=== PATIENT | female | born 1965 | race Two or more races ===

== ENCOUNTER 2020-01-23 02:05 | Inpatient (IN) | payer MEDICAID, SELFPAY ==
[2020-01-23] VITALS (8 sets, daily range): BP systolic 108–153; BP diastolic 55–91; PULSE 69–86; RESP 16–19; TEMP 35.7–36.9; O2SAT 91–98; BMI 40.8
--- NOTE | 2020-01-23 02:37 | ED_ITS ---
HPI - Skin/Abscess/Foreign Bdy General Chief complaint: Skin/Abscess/Foreign Body Stated complaint: RED INFLAMMED SKIN Time Seen by Provider: 01/23/20 02:26 Source: patient Mode of arrival: ambulatory Limitations: no limitations History of Present Illness HPI narrative: patient comes to the hospital complaining of left lower leg cellulitis and a new bruising ulcer. Patient states 4 days ago she was in [facility] [place], states she thinks something bit her, started scratching in her left lower extremity. Since then, her leg has gotten red, warm to touch, very tender. Patient developed a blister today with dark tissue around it, use hot compresses, and the blister popped. Patient states the redness has been sprea ding throughout the day. Patient denies fever or chills. Patient states she is not diabetic MD complaint: abscess/boil and other ( cellulitis) Onset (ago): day(s) Location: LLE Severity: moderate Related Data Home Medications Medication Instructions Recorded Confirmed amlodipine 10 mg PO DAILY 01/23/20 01/23/20 aspirin 81 mg PO DAILY 01/23/20 01/23/20 citalopram [Celexa] 20 mg PO DAILY 01/23/20 01/23/20 clonazepam 0.5 mg PO BEDTIME 01/23/20 01/23/20 diclofenac sodium 75 mg PO BID 01/23/20 01/23/20 duloxetine 60 mg PO DAILY 01/23/20 01/23/20 gabapentin 400 mg PO DAILY 01/23/20 01/23/20 losartan-hydrochlorothiazide 1 tab PO DAILY 01/23/20 01/23/20 tramadol 50 mg PO DAILY 01/23/20 01/23/20 Allergies Allergy/AdvReac Type Severity Reaction Status Date / Time No Known Allergies Allergy Unverified 12/26/19 19:44 [No Known Allergies*] Review of Systems Review of Systems: Constitutional : No Weight loss, No Fever, No Chills, No Night Sweats, No Fatigue, No Malaise ENT/Mouth : No Hearing loss, No Ear Pain, No Nasal Congestion, No Sinus Pain, No Hoarseness, No sore throat, No Rhinorrhea, No Swallowing Difficulty Eyes: No Eye Pain, No Swelling, No Redness, No Foreign Body, No Discharge, No Vision Changes Cardiovascular : No Chest Pain, No SOB, No Dyspnea on Exertion, No Orthopnea, No Edema, No Palpitations Respiratory : No Cough, No Sputum, No Wheezing, No Smoke Exposure, No Dyspnea Gastrointestinal : No Nausea, No Vomiting, No Diarrhea, No Constipation, No abdominal Pain, No Hematochezia, No Melena Genitourinary : no irregular bleeding, No Dysuria, No Urinary Frequency, No Hematuria, No Urinary Incontinence, No Urgency, No Flank Pain, No Urinary Flow Changes, No Hesitancy Musculoskeletal : No joint pain, No Myalgias, No Joint Swelling Skin : skin lesion in left lower extremity Neuro : No Weakness, No Numbness, No Paresthesias, No Loss of Consciousness, No Dizziness, No Headache Psych : No Anxiety/Panic, No Depression, No SI/HI/AH/VH, No Social Issues, Heme/Lymph: No Bruising, No Bleeding,No Lymphadenopathy Endocrine : No Polyuria, No Polydipsia, No Temperature Intolerance PMFSH Past Medical History Medical History (Updated 01/23/20 @ 05:50 by Ariella Garcia MD) Arthritis Fibromyalgia Hypertension Osteoarthritis Social History Social History Advance Directives: No Advance Directives Information Provided: No Physical Exam Vital Signs: Vital Signs: Vital Signs Temp Pulse Resp BP Pulse Ox 01/23/20 02:13 97.5 F 86 16 153/91 H 98 Body Mass Index 40.8 Appearance: Alert. Oriented X3. No acute distress. Eyes: Pupils equal, round and reactive to light. ENT: Pharynx normal. Neck: Normal inspection. Neck supple. No lymph nodes noted. No crepitus CVS: Normal heart rate and rhythm. Pulses normal. Normal S1 and S2 Respiratory: No respiratory distress. Breath sounds normal. No Wheezing. No rales Abdomen: Soft and nontender. No rigidity. No distention. good BS x4 Skin: patient's left lower extremity is swollen more noticeable than the right side, there is a 10 cm x 10 cm erythematous patch cellulitis, in the middle there is a opening ulcer with surrounding bluish to black tissue Extremities: patient's left lower extremity is 25 % bigger than the right side, no calf pain, no suspicion of DVT. Neuro: Oriented X 3. No motor deficit. No sensory deficit. Moving all extermities. No slurred speech. Course Course Course Narrative: I discussed with the patient that she could potentially be discharged home on 2 antibiotics, however patient requested to be admitted, patient states that she will be unable to be compliant with her medication due to her current living situation, patient is moving and is taking care of 3 grandchildren, patient states that she does not think that she could be compliant with her antibiotics sepsis is not suspected. Given the appearance of her leg, patient will benefit from IV antibiotics. MDM - Skin/Abscess/Foreign Bdy Lab Data Result diagrams: 01/23/20 02:40 01/23/20 02:40 Labs: Lab Results 01/23/20 01/23/20 01/23/20 Range/Units 02:40 02:40 02:40 WBC 13.6 H (4.8-10.8) X10*3/uL RBC 4.23 (4.20-5.50) X10*6/uL Hgb 12.4 (12.0-16.0) g/dl Hct 38.4 (37-47) % MCV 90.8 (80-98) fL MCH 29.3 (27.0-33.0) pg MCHC 32.3 (31.0-35.0) g/dl RDW 15.1 (11.0-16.0) % Plt Count 287 (160-400) X10*3/uL MPV 10.6 (9.4-12.3) fL Immature Gran % (Auto) 0.6 H (0.0-0.4) % Neut % (Auto) 65.6 (45-73) % Lymph % (Auto) 21.4 (20-40) % [place] % (Auto) 10.4 (2-11) % Eos % (Auto) 1.9 (0-4) % Baso % (Auto) 0.1 (0-2) % Lymph # (Auto) 2.9 (1.2-4.9) X10*3/uL [place] # (Auto) 1.4 H (0.1-1.2) X10*3/uL Eos # (Auto) 0.3 (0.0-0.4) X10*3/uL Baso # (Auto) 0.0 (0.0-0.2) X10*3/uL Abs Immat Gran (auto) 0.08 H (0.00-0.03) X10*3/uL Absolute Neuts (auto) 8.9 H (2.0-8.3) X10*3/uL Absolute Nucleated RBC 0.000 (0.0-0.012) X10*3/uL Nucleated RBC % (auto) 0.0 (0.0-0.2) /100WBC Sodium 137 (135-145) mmol/L Potassium 3.6 (3.3-5.1) mmol/l Chloride 104 (96-108) mmol/L Carbon Dioxide 25 (22-29) mmol/L Anion Gap 12 (12-20) BUN 18 H (9-16) mg/dL Creatinine 0.71 (0.5-1.4) mg/dL Estim Creat Clear Calc 107.4 Estimated GFR > 60 Random Glucose 143 H (60-115) mg/dL Lactic Acid 1.0 (0.5-2.0) mmol/L Calcium 8.5 (8.4-10.2) mg/dL Total Bilirubin 0.6 (0.0-1.0) mg/dL Direct Bilirubin 0.2 (0.0-0.5) mg/dL AST 12 (5-31) U/L ALT 19 (0-31) U/L Alkaline Phosphatase 114 (39-117) U/L Total Protein 6.3 L (6.5-8.0) g/dL Albumin 3.7 (3.5-5.0) g/dL Discharge Plan Discharge Clinical Impression: Cellulitis Patient Disposition: Admitted As Inpatient
--- NOTE | 2020-01-23 02:42 | PC.NURSE ---
at bedside. IV established, all labs and BCX obtained and sent. Pt aware of plan to CT extremity and IV ABX. Continue to monitor.
[2020-01-23 02:47] LABS: MANUAL DIFF FLAG NO
[2020-01-23 02:49] LABS: Basophils Percent Auto 0.1 % (0-2); Eosinophils Absolute Auto 0.3 X10*3/uL (0.0-0.4); Eosinophils Percent Auto 1.9 % (0-4); Hematocrit 38.4 % (37-47); Hemoglobin 12.4 g/dl (12.0-16.0); Imm Gran Abs Auto 0.08 X10*3/uL (0.00-0.03); Imm Gran Pct Auto 0.6 % (0.0-0.4); Lymphocytes Absolute Auto 2.9 X10*3/uL (1.2-4.9); Lymphocytes Percent Auto 21.4 % (20-40); Mean Corpuscular HGB Conc 32.3 g/dl (31.0-35.0); Mean Corpuscular Hemoglobin 29.3 pg (27.0-33.0); Mean Corpuscular Volume 90.8 fL (80-98); Mean Platelet Volume 10.6 fL (9.4-12.3); Monocytes Absolute Auto 1.4 X10*3/uL (0.1-1.2); Monocytes Percent Auto 10.4 % (2-11); Neutrophils Absolute Auto 8.9 X10*3/uL (2.0-8.3); Neutrophils Percent Auto 65.6 % (45-73); Platelet Count 287 X10*3/uL (160-400); Red Blood Count 4.23 X10*6/uL (4.20-5.50); Red Cell Distribution Width 15.1 % (11.0-16.0); White Blood Count 13.6 X10*3/uL (4.8-10.8)
[2020-01-23] MEDS: 0.9 % Sodium Chloride 1,000 ML 999 ML IVCONT (02:55)
[2020-01-23] MEDS: Piperacillin Sodium/Tazobactam 3.375 GM in 0.9 % Sodium Chloride 50 ML IV (02:55)
--- NOTE | 2020-01-23 02:56 | PC.NURSE ---
Zosyn and IVF hung per EMAR.
[2020-01-23 03:13] LABS: Alanine Aminotransferase 19 U/L (0-31); Albumin Level 3.7 g/dL (3.5-5.0); Alkaline Phosphatase 114 U/L (39-117); Anion Gap 12 (12-20); Aspartate Amino Transferase 12 U/L (5-31); Bilirubin Direct 0.2 mg/dL (0.0-0.5); Bilirubin Total 0.6 mg/dL (0.0-1.0); Blood Urea Nitrogen 18 mg/dL (9-16); Calcium 8.5 mg/dL (8.4-10.2); Carbon Dioxide 25 mmol/L (22-29); Chloride 104 mmol/L (96-108); Creatinine Clr Calc Pharmacy 107.4; Estimated Glomerular Filt Rate > 60; Glucose Random 143 mg/dL (60-115); Potassium 3.6 mmol/l (3.3-5.1); Sodium 137 mmol/L (135-145); Total Protein 6.3 g/dL (6.5-8.0)
--- NOTE | 2020-01-23 03:35 | PC.NURSE ---
Flor aguilera per EMAR.
--- NOTE | 2020-01-23 04:03 | PC.NURSE ---
Pt requesting to use the bathroom, ambulating with a scanlon/steady gait.
--- NOTE | 2020-01-23 04:50 | PC.NURSE ---
Hospitalist at bedside. Med rec complete per list provided by pt.
--- NOTE | 2020-01-23 05:42 | PM.IMHP ---
History of Present Illness Date of Service: 01/23/20 Chief Complaint: skin abscess, redness patient is [place]-speaking and history is obtained with the help of marketing technology coordinator this is a 54-year-old female with past medical history of hypertension, osteoarthritis, fibromyalgia, and migraine who presents to the hospital with complaints of left lower extremity skin abscess. Patient reports that on she was at [facility] when she felt something itching. She started itching her leg and then founded to be red with subsequent worsening and started swelling.. The redness progressively worsened over the next few days, and she also developed a bump. She was hot water and Neosporin and today in the shower the phone pots and started draining bloody drainage. She is not aware she was bitten by any insect. She has not had any fever or chills. Otherwise no headache, change in vision, abdominal pain nausea or vomiting, no diarrhea or constipation. No chest pain or shortness of breath. On arrival to the ED hemodynamically stable lab significant for WBC count 13.6, otherwise unremarkable. Given the severity of her cellulitis and skin abscess patient will be admitted for IV antibiotics past medical history: Fibromyalgia, osteoarthritis, hypertension, vertigo and migraine past surgical history: Tubal ligation, cholecystectomy family history: Significant for diabetes social history: She comes from, denies tobacco alcohol or illicit drug Review of Systems Review of Systems: Yes all other systems are reviewed and are negative [facility] Medical History Arthritis Fibromyalgia Hypertension Osteoarthritis Social History Advance Directives: No Advance Directives Information Provided: No Meds Allergies Allergy/AdvReac Type Severity Reaction Status Date / Time No Known Allergies Allergy Unverified 12/26/19 19:44 [No Known Allergies*] Home Medications Medication Instructions Recorded Confirmed Type amlodipine 10 mg PO DAILY 01/23/20 01/23/20 History aspirin 81 mg PO DAILY 01/23/20 01/23/20 History citalopram [Celexa] 20 mg PO DAILY 01/23/20 01/23/20 History clonazepam 0.5 mg PO BEDTIME 01/23/20 01/23/20 History diclofenac sodium 75 mg PO BID 01/23/20 01/23/20 History duloxetine 60 mg PO DAILY 01/23/20 01/23/20 History gabapentin 400 mg PO DAILY 01/23/20 01/23/20 History losartan-hydrochlorothiazide 1 tab PO DAILY 01/23/20 01/23/20 History tramadol 50 mg PO DAILY 01/23/20 01/23/20 History Physical Exam Vital Signs and Narrative: Vital Signs: Last Vital Signs Temp 97.5 F 01/23/20 02:13 Pulse 86 01/23/20 02:13 Resp 16 01/23/20 02:13 BP 153/91 H 01/23/20 02:13 Pulse Ox 98 01/23/20 02:13 Body Mass Index 40.8 Const: General: cooperative and no acute distress Orientation/consciousness: patient oriented x3 Eyes: General: appearance normal, both eyes and all related structures Pupils: Equal, round and reactive pupils present Resp: Effort & Inspection: normal respiratory effort and able to speak in complete sentences Auscultation: clear to auscultation bilaterally Cardio: Rate: regular rate Rhythm: regular rhythm GI: Palpation (GI): Soft to palpation Auscultation: normal bowel sounds Skin: General skin exam: no rashes or lesions noted Neuro: General: patient oriented x3 Cranial nerves: Yes Equal, round and reactive pupils present Cognition (Neuro): normal cognition Extrem: Other: lateral left lower extremity circular area of erythema, warmth, and severe tenderness P there is also edema in that area. In the center of the circular erythema there is what appears to be a weeping abscess. Ankle/foot/toe images: 1. 2. Results Labs Labs: Laboratory Tests 01/23/20 01/23/20 01/23/20 02:40 02:40 02:40 WBC 13.6 H RBC 4.23 Hgb 12.4 Hct 38.4 MCV 90.8 MCH 29.3 MCHC 32.3 RDW 15.1 Plt Count 287 MPV 10.6 Immature Gran % (Auto) 0.6 H Neut % (Auto) 65.6 Lymph % (Auto) 21.4 [place] % (Auto) 10.4 Eos % (Auto) 1.9 Baso % (Auto) 0.1 Lymph # (Auto) 2.9 [place] # (Auto) 1.4 H Eos # (Auto) 0.3 Baso # (Auto) 0.0 Abs Immat Gran (auto) 0.08 H Absolute Neuts (auto) 8.9 H Absolute Nucleated RBC 0.000 Nucleated RBC % (auto) 0.0 Sodium 137 Potassium 3.6 Chloride 104 Carbon Dioxide 25 Anion Gap 12 BUN 18 H Creatinine 0.71 Estim Creat Clear Calc 107.4 Estimated GFR > 60 Random Glucose 143 H Lactic Acid 1.0 Calcium 8.5 Total Bilirubin 0.6 Direct Bilirubin 0.2 AST 12 ALT 19 Alkaline Phosphatase 114 Total Protein 6.3 L Albumin 3.7 Assessment and Plan (1) Skin abscess: Status: Acute (2) Hypertension: Status: Acute (3) Arthritis: Status: Acute (4) Cellulitis: Status: Acute This is a 54-year-old female who presents to the hospital with leg cellulitis and abscess pain # left lower extremity cellulitis - afebrile but has leukocytosis - a large draining abscess in the center of the years - possibly secondary to an insect bite plan: - Given draining was started on vancomycin, received zosyn in ED - blood cultures - wound care # Skin abscess - draining with bloody drainage - abx as above - wound care - if not healing conside Gen surg for I&D although does not appear to be deep # HTN - stable - Non-formulary home meds, switched to formulary # Fibromyalgia - continue gabapentin DVT ppx: Lovenox DOS: 01/23/2020
--- NOTE | 2020-01-23 05:54 | PC.NURSE ---
Vanco ordered for 0300 not given. Vanco 1500 mg ordered by ER given @ 8229.
--- NOTE | 2020-01-23 06:11 | PC.NURSE ---
This RN calling [facility] to give report, [facility] unable to take report at this time.
--- NOTE | 2020-01-23 06:40 | PC.NURSE ---
This RN again calling [facility], per I[facility], pt is now going to M/S floor.
[2020-01-23] MEDS: Losartan Potassium 50 MG TABLET 100 MG PO (10:02)
[2020-01-23] MEDS: Gabapentin 400 MG CAPSULE PO (10:02)
[2020-01-23] MEDS: amLODIPine Besylate 10 MG TABLET PO (10:02)
[2020-01-23] MEDS: Acetaminophen 325 MG TABLET 650 MG PO ×2 (10:02→20:05)
[2020-01-23] MEDS: hydroCHLOROthiazide 25 MG TABLET PO (10:02)
[2020-01-23] MEDS: DULoxetine HCl 60 MG CAPSULE.DR PO (10:02)
[2020-01-23] MEDS: traMADoL HCL 50 MG TABLET PO (10:02)
[2020-01-23] MEDS: Enoxaparin Sodium 40 MG/0.4 ML SYRINGE SUBCUT (10:03)
[2020-01-23] MEDS: 0.9 % Sodium Chloride Flush 3 ML SYRINGE IVFLUSH ×2 (10:05→20:11)
[2020-01-23] MEDS: Diclofenac Sodium Delayed Rel 75 MG TABLET.DR PO ×2 (10:46→20:05)
[2020-01-23] MEDS: clonazePAM 0.5 MG TABLET PO (20:05)
[2020-01-23] MEDS: Morphine Sulfate 4 MG/ML CARTRIDGE IVPUSH (21:45)
[2020-01-24] VITALS (8 sets, daily range): BP systolic 104–130; BP diastolic 58–76; PULSE 67–88; RESP 18–19; TEMP 35.9–37; O2SAT 93–98; BMI 45.6
[2020-01-24 05:33] LABS: MANUAL DIFF FLAG NO
[2020-01-24 05:39] LABS: Basophils Percent Auto 0.3 % (0-2); Eosinophils Absolute Auto 0.3 X10*3/uL (0.0-0.4); Eosinophils Percent Auto 3.5 % (0-4); Hematocrit 35.6 % (37-47); Hemoglobin 11.2 g/dl (12.0-16.0); Imm Gran Abs Auto 0.04 X10*3/uL (0.00-0.03); Imm Gran Pct Auto 0.5 % (0.0-0.4); Lymphocytes Absolute Auto 1.7 X10*3/uL (1.2-4.9); Lymphocytes Percent Auto 21.4 % (20-40); Mean Corpuscular HGB Conc 31.5 g/dl (31.0-35.0); Mean Corpuscular Hemoglobin 29.2 pg (27.0-33.0); Mean Corpuscular Volume 92.7 fL (80-98); Mean Platelet Volume 10.7 fL (9.4-12.3); Neutrophils Absolute Auto 4.9 X10*3/uL (2.0-8.3); Neutrophils Percent Auto 62.3 % (45-73); Platelet Count 229 X10*3/uL (160-400); Red Blood Count 3.84 X10*6/uL (4.20-5.50); Red Cell Distribution Width 14.9 % (11.0-16.0); White Blood Count 7.9 X10*3/uL (4.8-10.8)
[2020-01-24 06:05] LABS: Anion Gap 9 (12-20); Blood Urea Nitrogen 15 mg/dL (9-16); Calcium 8.1 mg/dL (8.4-10.2); Carbon Dioxide 27 mmol/L (22-29); Chloride 106 mmol/L (96-108); Creatinine Clr Calc Pharmacy 119.5; Estimated Glomerular Filt Rate > 60; Glucose Random 114 mg/dL (60-115); Potassium 4.1 mmol/l (3.3-5.1); Sodium 138 mmol/L (135-145)
[2020-01-24] MEDS: Enoxaparin Sodium 40 MG/0.4 ML SYRINGE SUBCUT (09:49)
[2020-01-24] MEDS: amLODIPine Besylate 10 MG TABLET PO (09:50)
[2020-01-24] MEDS: Gabapentin 400 MG CAPSULE PO (09:50)
[2020-01-24] MEDS: hydroCHLOROthiazide 25 MG TABLET PO (09:50)
[2020-01-24] MEDS: DULoxetine HCl 60 MG CAPSULE.DR PO (09:50)
[2020-01-24] MEDS: 0.9 % Sodium Chloride Flush 3 ML SYRINGE IVFLUSH ×3 (09:50→23:33)
[2020-01-24] MEDS: Losartan Potassium 50 MG TABLET 100 MG PO (09:51)
[2020-01-24] MEDS: Diclofenac Sodium Delayed Rel 75 MG TABLET.DR PO ×2 (09:51→20:52)
[2020-01-24] MEDS: traMADoL HCL 50 MG TABLET PO (09:51)
--- NOTE | 2020-01-24 11:33 | P.PNIM_ITS ---
Subjective Subjective Date of Service: 01/24/20 Interval History: Seen in f/u for skin abscess and cellulitis. pain in the area, unchanged Review of Systems Pain the leg No fever Physical Exam Vital Signs: Vital Signs: Vital Signs Temp Pulse Resp BP Pulse Ox 01/24/20 09:51 73 110/74 01/24/20 09:50 73 110/74 01/24/20 07:16 96.7 F L 73 18 110/74 98 01/24/20 03:54 98.6 F 67 18 128/76 97 01/23/20 23:52 97.0 F 75 18 110/69 91 L 01/23/20 20:00 96.3 F L 76 112/70 94 01/23/20 15:57 97.9 F 76 19 108/69 97 01/23/20 11:34 97.4 F 70 18 138/74 98 Body Mass Index 45.6 Constitutional Awake and Alert, No apparent distress Neck Supple, No lymphadenopathy Cardiovascular RRR, No M/R/G, S1 S2, No S3 S4, No pedal edema Respiratory Lungs clear, No respiratory distress Gastrointestinal Non tender, Non-distended Skin large area of left leg with abscess necrotic surface draining and surrounding erythema Neurological Alert & oriented x3 Psychological Appropriate affect Objective Data Current Medications Generic Name Dose Route Start Last Admin Trade Name Freq PRN Reason Stop Dose Admin Acetaminophen 650 mg 01/23/20 09:36 01/23/20 20:05 Acetaminophen 325 Mg Tablet PO 650 mg Q6H PRN Administration Pain, Mild (Pain Scale 1-3) Amlodipine Besylate 10 mg 01/23/20 09:36 01/24/20 09:50 Amlodipine Besylate 10 Mg Tablet PO 10 mg DAILY ALVARADO Administration Protocol Clonazepam 0.5 mg 01/23/20 21:00 01/23/20 20:05 Clonazepam 0.5 Mg Tablet PO 0.5 mg BEDTIME ALVARADO Administration Diclofenac Sodium 75 mg 01/23/20 09:36 01/24/20 09:51 Diclofenac Sodium Delayed Rel 75 Mg Tablet. PO 75 mg BID ALVARADO Administration Docusate Sodium 100 mg 01/23/20 09:36 Docusate Sodium 100 Mg Capsule PO DAILY PRN Constipation Duloxetine HCl 60 mg 01/23/20 09:36 01/24/20 09:50 Duloxetine Hcl 60 Mg Capsule. PO 60 mg DAILY ALVARADO Administration Enoxaparin Sodium 40 mg 01/23/20 10:00 01/24/20 09:49 Enoxaparin Sodium 40 Mg/0.4 Ml Syringe SUBCUT 40 mg Q24H ALVARADO Administration Gabapentin 400 mg 01/23/20 09:36 01/24/20 09:50 Gabapentin 400 Mg Capsule PO 400 mg DAILY ALVARADO Administration Hydrochlorothiazide 25 mg 01/23/20 09:36 01/24/20 09:50 Hydrochlorothiazide 25 Mg Tablet PO 25 mg DAILY [facility] Administration Protocol Vancomycin HCl 2,000 mg/ 540 mls @ 270 mls/hr 01/23/20 16:00 01/24/20 06:39 Sodium Chloride IV Infused Q12H ALVARADO Infusion Losartan Potassium 100 mg 01/23/20 09:00 01/24/20 09:51 Losartan Potassium 50 Mg Tablet PO 100 mg DAILY [facility] Administration Protocol Morphine Sulfate 4 mg 01/23/20 09:36 01/23/20 21:45 Morphine Sulfate 4 Mg/Ml Cartridge IVPUSH 4 mg Q6H PRN Administration Pain, Severe (Pain Scale 7-10) Ondansetron HCl 4 mg 01/23/20 09:36 Ondansetron Hcl 4 Mg/2 Ml Vial IVPUSH Q8H PRN Nausea and Vomiting Sodium Chloride 3 ml 01/23/20 09:36 01/24/20 09:50 0.9 % Sodium Chloride Flush 3 Ml Syringe IVFLUSH 3 ml QSHIFT [facility] Administration Tramadol HCl 50 mg 01/23/20 09:36 01/24/20 09:51 Tramadol Hcl 50 Mg Tablet PO 50 mg DAILY [facility] Administration Labs CBC & Chem 7: 01/24/20 05:14 01/24/20 05:14 Microbiology Microbiology Results: Microbiology 01/23/20 02:40 Blood - Venous Blood Culture - Preliminary No growth after 24 hours. 01/23/20 02:40 Blood - Venous Blood Culture - Preliminary No growth after 24 hours. Assessment and Plan (1) Skin abscess: Status: Acute (2) Hypertension: Status: Acute (3) Arthritis: Status: Acute (4) Cellulitis: Status: Acute Assessment and Plan: 54-year-old female who presents to the hospital with leg cellulitis and abscess pain # left lower extremity skin abscess that looks like spider bite with cellulitis -contineu Abx -Surgery consult for I and D # HTN--controlled. # Fibromyalgia - continue gabapentin
--- NOTE | 2020-01-24 11:43 | MHC.CM.PN ---
[facility] CARDIOVASCULAR completed with pt with the assistance of a gym manager. Pt reports she lives with her cousin and is independent with care and mobility. Pt denies the use of any DME or services. Pt confirms PCP listed, Chelsi Go, as correct. Pt does not have a HCP but agrees to complete one today naming Malgorzata Oliveira ([phone]) as primary and Kiana Solis ([phone]) as alternate agent. Current discharge plan is home with no services pt will self arrange transport
[2020-01-24] MEDS: Morphine Sulfate 4 MG/ML CARTRIDGE IVPUSH ×2 (14:22→23:38)
[2020-01-24] MEDS: Lidocaine HCl 1 % 20 ML VIAL SUBCUT (14:26)
--- NOTE | 2020-01-24 14:49 | PM.CNGS ---
History of Present Illness Consult details Consult date: 01/24/20 Narrative: 54-year-old female referred for left lower leg abscess. She describes an area of itching on the left lower leg about a week ago. She says she started to scratch this and she had noted I read area with a small bump. This became progressively worse with increase in size and redness. It became more tender and painful yesterday with some drainage and bleeding so she came to the emergency room last night. She was noted to have an area of cellulitis with induration and some draining abscess so she was admitted last night. Her white count was 13. She denies any recall of trauma or insect bite to the area. She denies being a diabetic. Review of Systems Constitutional: Constitutional: Denies chills and Denies fever(s) Cardiovascular: Cardiovascular: Denies chest pain, Denies dyspnea and Denies dyspnea on exertion Respiratory: Respiratory: Denies cough, Denies dyspnea and Denies dyspnea on exertion Gastrointestinal: Gastrointestinal: Denies hematochezia and Denies change in bowel habits Genitourinary: Genitourinary: Reports hematuria Musculoskeletal: Musculoskeletal: Denies back pain and Denies limited range of motion Neurologic: Denies focal weakness and Denies convulsions Psychiatric: Psychiatric: Denies depression and Denies mood swings PMFSH Past Medical History Medical History Arthritis Fibromyalgia Hypertension Osteoarthritis Family History Family history: reviewed and not pertinent Social History Social History Household Members: Family Housing: Apartment Do you presently have visiting nurse or other home services: No Smoking Status: Never smoker Smoked in Last 30 Days: No Patient Interested in Nicotine Replacement: No Patient Given Instructions on How to Stop Smoking: No Second Hand Smoke Exposure: No Use of substances other than those prescribed or required for medical reasons: No Currently Displaying Signs/Symptoms of Drug Intoxication Withdrawal: No Advance Directives: No Advance Directives Information Provided: No Do you have thoughts of harming others: None Do you have a plan to hurt others: No Plan Recently lost weight without trying: No service: No Current occupational status: unemployed Meds Allergies Allergy/AdvReac Type Severity Reaction Status Date / Time No Known Allergies Allergy Unverified 12/26/19 19:44 [No Known Allergies*] Home Medications Medication Instructions Recorded Confirmed Type amlodipine 10 mg PO DAILY 01/23/20 01/23/20 History aspirin 81 mg PO DAILY 01/23/20 01/23/20 History citalopram [Celexa] 20 mg PO DAILY 01/23/20 01/23/20 History clonazepam 0.5 mg PO BEDTIME 01/23/20 01/23/20 History diclofenac sodium 75 mg PO BID 01/23/20 01/23/20 History duloxetine 60 mg PO DAILY 01/23/20 01/23/20 History gabapentin 400 mg PO DAILY 01/23/20 01/23/20 History losartan-hydrochlorothiazide 1 tab PO DAILY 01/23/20 01/23/20 History tramadol 50 mg PO DAILY 01/23/20 01/23/20 History Physical Exam Vital Signs: Vital Signs: Vital Signs Temp Pulse Resp BP Pulse Ox 01/24/20 11:36 96.8 F 77 18 130/69 97 01/24/20 09:51 73 110/74 01/24/20 09:50 73 110/74 01/24/20 07:16 96.7 F L 73 18 110/74 98 01/24/20 03:54 98.6 F 67 18 128/76 97 01/23/20 23:52 97.0 F 75 18 110/69 91 L 01/23/20 20:00 96.3 F L 76 112/70 94 01/23/20 15:57 97.9 F 76 19 108/69 97 Body Mass Index 45.6 Const: General: comfortable and no acute distress Orientation/consciousness: patient oriented x3 Neck: Neck: Yes no lymphadenopathy Resp: Auscultation: clear to auscultation bilaterally Cardio: Rhythm: regular rhythm GI: Palpation (GI): Soft to palpation, nontender and no guarding Neuro: General: patient oriented x3 Extrem: Other: Left lower leg laterally with note of an area of induration about 5 cm in size, central fluctuance with drainage, surrounded by cellulitic changes on the skin Results Labs Result diagrams: 01/24/20 05:14 01/24/20 05:14 Labs: Abnormal lab results 01/24/20 01/24/20 Range/Units 05:14 05:14 RBC 3.84 L (4.20-5.50) X10*6/uL Hgb 11.2 L (12.0-16.0) g/dl Hct 35.6 L (37-47) % Immature Gran % (Auto) 0.5 H (0.0-0.4) % [place] % (Auto) 12.0 H (2-11) % Abs Immat Gran (auto) 0.04 H (0.00-0.03) X10*3/uL Anion Gap 9 L (12-20) Calcium 8.1 L (8.4-10.2) mg/dL Short CBC 01/24/20 Range/Units 05:14 WBC 7.9 (4.8-10.8) X10*3/uL Hgb 11.2 L (12.0-16.0) g/dl Hct 35.6 L (37-47) % Plt Count 229 (160-400) X10*3/uL BMP 01/24/20 05:14 Sodium 138 Potassium 4.1 Chloride 106 Carbon Dioxide 27 BUN 15 Creatinine 0.68 Calcium 8.1 L All other labs normal. Assessment and Plan (1) Subcutaneous abscess: Status: Acute Examination shows a wide area of cellulitis on the left lower leg along with an induration with central fluctuance as described above consistent with an abscess in the subcutaneous layer. I therefore explained to her that it would be best to proceed with I and D under local anesthesia. I explained to her the technique of this procedure. I reviewed with her the risks including but not limited bleeding and infections. She understood and had given verbal consent. The I&D was done at bedside as described on the procedure note. She tolerated this well. Applied a light packing into the area. Cultures were taken as well. She will need daily dressing changes with dry gauze along with a Kerlix wrapped around the leg. The culture results should be followed. She already is on broad-spectrum antibiotics at this time. This maybe customized depending on the culture results. Procedures Abscess I/D Side (if applicable): left Anesthetic used: lidocaine 1% Technique: incised with #11 blade Packing used?: iodoform Additional comments: The area was prepped and draped. Lidocaine 1% was used generously to infiltrate the subcutaneous layer. I then used a blade 11 to incise the skin overlying the fluctuant area and this was advanced into the abscess cavity. Large amounts of pus was drained. I bluntly debrided the abscess cavities in Q-tips. I then applied a light packing to the area. Dry dressings and a Kerlix roll was then applied to the leg. Cultures of the abscess was done as well. She tolerated The procedure well. There were no complications noted.
[2020-01-24 16:37] LABS: Vancomycin Trough 19.3 mcg/mL (10.0-20.0)
--- NOTE | 2020-01-24 18:20 | PC.NURSE ---
P-vanco trough 19.3 I-Dr. Thompson notified E-awaiting new orders
--- NOTE | 2020-01-24 19:10 | PC.NURSE ---
Rn was not able toscan Vancomycin because scheduled time was changed,pharmacy was notified
[2020-01-24] MEDS: Acetaminophen 325 MG TABLET 650 MG PO (20:52)
[2020-01-24] MEDS: clonazePAM 0.5 MG TABLET PO (20:53)
[2020-01-25] VITALS (9 sets, daily range): BP systolic 104–133; BP diastolic 56–69; PULSE 69–83; RESP 16–19; TEMP 36.1–36.6; O2SAT 95–97; BMI 45.9
[2020-01-25] MEDS: DULoxetine HCl 60 MG CAPSULE.DR PO (09:52)
[2020-01-25] MEDS: Diclofenac Sodium Delayed Rel 75 MG TABLET.DR PO ×2 (09:52→20:44)
[2020-01-25] MEDS: Losartan Potassium 50 MG TABLET 100 MG PO (09:52)
[2020-01-25] MEDS: Enoxaparin Sodium 40 MG/0.4 ML SYRINGE SUBCUT (09:53)
[2020-01-25] MEDS: traMADoL HCL 50 MG TABLET PO (09:53)
[2020-01-25] MEDS: hydroCHLOROthiazide 25 MG TABLET PO (09:53)
[2020-01-25] MEDS: amLODIPine Besylate 10 MG TABLET PO (09:53)
[2020-01-25] MEDS: Gabapentin 400 MG CAPSULE PO (09:53)
--- NOTE | 2020-01-25 11:11 | P.PNIM_ITS ---
Subjective Subjective Interval History: Seen in f/u for skin abscess and cellulitis. pain in the area, unchanged Physical Exam Vital Signs: Vital Signs: Vital Signs Temp Pulse Resp BP Pulse Ox 01/25/20 09:53 76 133/66 01/25/20 09:52 76 133/66 01/25/20 07:45 96.9 F 72 18 108/60 97 01/25/20 03:51 97.8 F 79 19 104/69 97 01/24/20 23:42 97.1 F 72 19 104/64 97 01/24/20 19:24 97.0 F 88 18 111/59 L 95 01/24/20 15:39 97.2 F 82 18 118/58 L 93 01/24/20 11:36 96.8 F 77 18 130/69 97 Body Mass Index 45.6 Constitutional Awake and Alert, No apparent distress Neck Supple, No lymphadenopathy Cardiovascular RRR, No M/R/G, S1 S2, No S3 S4, No pedal edema Respiratory Lungs clear, No respiratory distress Gastrointestinal Non tender, Non-distended Skin large area of left leg with abscess necrotic surface draining and surrounding erythema--images below Neurological Alert & oriented x3 Psychological Appropriate affect 01/24/20 01/25/20 Objective Data Current Medications Generic Name Dose Route Start Last Admin Trade Name Freq PRN Reason Stop Dose Admin Acetaminophen 650 mg 01/23/20 09:36 01/24/20 20:52 Acetaminophen 325 Mg Tablet PO 650 mg Q6H PRN Administration Pain, Mild (Pain Scale 1-3) Amlodipine Besylate 10 mg 01/23/20 09:36 01/25/20 09:53 Amlodipine Besylate 10 Mg Tablet PO 10 mg DAILY ALVARADO Administration Protocol Clonazepam 0.5 mg 01/23/20 21:00 01/24/20 20:53 Clonazepam 0.5 Mg Tablet PO 0.5 mg BEDTIME ALVARADO Administration Diclofenac Sodium 75 mg 01/23/20 09:36 01/25/20 09:52 Diclofenac Sodium Delayed Rel 75 Mg Tablet. PO 75 mg BID ALVARADO Administration Docusate Sodium 100 mg 01/23/20 09:36 Docusate Sodium 100 Mg Capsule PO DAILY PRN Constipation Duloxetine HCl 60 mg 01/23/20 09:36 01/25/20 09:52 Duloxetine Hcl 60 Mg Capsule. PO 60 mg DAILY ALVARADO Administration Enoxaparin Sodium 40 mg 01/23/20 10:00 01/25/20 09:53 Enoxaparin Sodium 40 Mg/0.4 Ml Syringe SUBCUT 40 mg Q24H [facility] Administration Gabapentin 400 mg 01/23/20 09:36 01/25/20 09:53 Gabapentin 400 Mg Capsule PO 400 mg DAILY [facility] Administration Hydrochlorothiazide 25 mg 01/23/20 09:36 01/25/20 09:53 Hydrochlorothiazide 25 Mg Tablet PO 25 mg DAILY [facility] Administration Protocol Vancomycin HCl 1,500 mg/ 280 mls @ 186.667 mls/hr 01/24/20 19:00 01/25/20 08:22 Sodium Chloride IV Infused Q12H [facility] Infusion Losartan Potassium 100 mg 01/23/20 09:00 01/25/20 09:52 Losartan Potassium 50 Mg Tablet PO 100 mg DAILY [facility] Administration Protocol Morphine Sulfate 4 mg 01/23/20 09:36 01/24/20 23:38 Morphine Sulfate 4 Mg/Ml Cartridge IVPUSH 4 mg Q6H PRN Administration Pain, Severe (Pain Scale 7-10) Ondansetron HCl 4 mg 01/23/20 09:36 Ondansetron Hcl 4 Mg/2 Ml Vial IVPUSH Q8H PRN Nausea and Vomiting Sodium Chloride 3 ml 01/23/20 09:36 01/25/20 07:19 0.9 % Sodium Chloride Flush 3 Ml Syringe IVFLUSH Not Given QSHIFT [facility] Tramadol HCl 50 mg 01/23/20 09:36 01/25/20 09:53 Tramadol Hcl 50 Mg Tablet PO 50 mg DAILY [facility] Administration Labs CBC & Chem 7: 01/24/20 05:14 01/24/20 05:14 Microbiology Microbiology Results: Microbiology 01/24/20 14:42 Abscess Soft Tissue Gram Stain - Final 01/24/20 14:42 Abscess Soft Tissue Routine Culture - Preliminary Culture in progress. 01/23/20 02:40 Blood - Venous Blood Culture - Preliminary No growth after 48 hours. 01/23/20 02:40 Blood - Venous Blood Culture - Preliminary No growth after 48 hours. Assessment and Plan (1) Skin abscess: Status: Acute (2) Hypertension: Status: Acute (3) Arthritis: Status: Acute (4) Cellulitis: Status: Acute Assessment and Plan: 54-year-old female who presents to the hospital with leg cellulitis and abscess pain # left lower extremity skin abscess that looks like spider bite with cellulitis -contineu Vanco -ID consult -Surgery I and D'd yesterday # HTN--controlled. # Fibromyalgia - continue gabapentin
[2020-01-25] MEDS: Morphine Sulfate 4 MG/ML CARTRIDGE IVPUSH (19:37)
[2020-01-25] MEDS: clonazePAM 0.5 MG TABLET PO (20:44)
[2020-01-25] MEDS: 0.9 % Sodium Chloride Flush 3 ML SYRINGE IVFLUSH (22:18)
[2020-01-26 03:46] VITALS: BP 113/54; PULSE 61; RESP 16; TEMP 36.2; O2SAT 96
[2020-01-26 04:53] LABS: Vancomycin Trough 22.3 mcg/mL (10.0-20.0)
[2020-01-26 07:44] VITALS: BP 130/67; PULSE 75; RESP 19; TEMP 36.7; O2SAT 97
[2020-01-26] MEDS: DULoxetine HCl 60 MG CAPSULE.DR PO (08:14)
[2020-01-26 08:15] VITALS: BP 130/67; PULSE 75
[2020-01-26] MEDS: Gabapentin 400 MG CAPSULE PO (08:15)
[2020-01-26] MEDS: Losartan Potassium 50 MG TABLET 100 MG PO (08:15)
[2020-01-26] MEDS: amLODIPine Besylate 10 MG TABLET PO (08:15)
[2020-01-26] MEDS: Diclofenac Sodium Delayed Rel 75 MG TABLET.DR PO (08:15)
[2020-01-26] MEDS: hydroCHLOROthiazide 25 MG TABLET PO (08:16)
[2020-01-26] MEDS: traMADoL HCL 50 MG TABLET PO (08:16)
[2020-01-26] MEDS: Enoxaparin Sodium 40 MG/0.4 ML SYRINGE SUBCUT (08:16)
[2020-01-26] MEDS: 0.9 % Sodium Chloride Flush 3 ML SYRINGE IVFLUSH (08:17)
[2020-01-26 10:21] LABS: Anion Gap 10 (12-20); Blood Urea Nitrogen 15 mg/dL (9-16); Carbon Dioxide 31 mmol/L (22-29); Chloride 101 mmol/L (96-108); Estimated Glomerular Filt Rate > 60; Glucose Random 156 mg/dL (60-115); Potassium 3.7 mmol/l (3.3-5.1); Sodium 138 mmol/L (135-145)
[2020-01-26 10:43] LABS: Calcium 9.2 mg/dL (8.4-10.2)
--- NOTE | 2020-01-26 11:48 | HO.PM.IMPN ---
Subjective Subjective Interval History: Seen in f/u for skin abscess and cellulitis. pain in the area, unchanged Physical Exam Vital Signs: Vital Signs: Vital Signs Temp Pulse Resp BP Pulse Ox 01/26/20 08:15 75 130/67 01/26/20 07:44 98.1 F 75 19 130/67 97 01/26/20 03:46 97.1 F 61 16 113/54 L 96 01/25/20 23:24 97.1 F 74 16 119/68 96 01/25/20 19:14 96.9 F 69 16 107/56 L 95 01/25/20 16:00 97.1 F 83 18 123/69 95 01/25/20 15:37 97.1 F 83 18 123/69 95 01/25/20 12:00 97.7 F 74 19 123/63 96 Body Mass Index 45.9 Constitutional Awake and Alert, No apparent distress Neck Supple, No lymphadenopathy Cardiovascular RRR, No M/R/G, S1 S2, No S3 S4, No pedal edema Respiratory Lungs clear, No respiratory distress Gastrointestinal Non tender, Non-distended Skin large area of left leg with abscess necrotic surface draining and surrounding erythema--see images below Neurological Alert & oriented x3 Psychological Appropriate affect 01/24/20 01/25/20 01/26/20 Objective Data Current Medications Generic Name Dose Route Start Last Admin Trade Name Marcq PRN Reason Stop Dose Admin Acetaminophen 650 mg 01/23/20 09:36 01/24/20 20:52 Acetaminophen 325 Mg Tablet PO 650 mg Q6H PRN Administration Pain, Mild (Pain Scale 1-3) Amlodipine Besylate 10 mg 01/23/20 09:36 01/26/20 08:15 Amlodipine Besylate 10 Mg Tablet PO 10 mg DAILY ALVARADO Administration Protocol Clonazepam 0.5 mg 01/23/20 21:00 01/25/20 20:44 Clonazepam 0.5 Mg Tablet PO 0.5 mg BEDTIME ALVARADO Administration Diclofenac Sodium 75 mg 01/23/20 09:36 01/26/20 08:15 Diclofenac Sodium Delayed Rel 75 Mg Tablet.Dr PO 75 mg BID ALVARADO Administration Docusate Sodium 100 mg 01/23/20 09:36 Docusate Sodium 100 Mg Capsule PO DAILY PRN Constipation Duloxetine HCl 60 mg 01/23/20 09:36 01/26/20 08:14 Duloxetine Hcl 60 Mg Capsule.Dr PO 60 mg DAILY [facility] Administration Enoxaparin Sodium 40 mg 01/23/20 10:00 01/26/20 08:16 Enoxaparin Sodium 40 Mg/0.4 Ml Syringe SUBCUT 40 mg Q24H ALVARADO Administration Gabapentin 400 mg 01/23/20 09:36 01/26/20 08:15 Gabapentin 400 Mg Capsule PO 400 mg DAILY [facility] Administration Hydrochlorothiazide 25 mg 01/23/20 09:36 01/26/20 08:16 Hydrochlorothiazide 25 Mg Tablet PO 25 mg DAILY [facility] Administration Protocol Vancomycin HCl 750 mg/ 275 mls @ 183.333 mls/hr 01/26/20 18:00 Vancomycin HCl 500 mg/ Sodium IV Chloride Q12H [facility] Losartan Potassium 100 mg 01/23/20 09:00 01/26/20 08:15 Losartan Potassium 50 Mg Tablet PO 100 mg DAILY [facility] Administration Protocol Morphine Sulfate 4 mg 01/23/20 09:36 01/25/20 19:37 Morphine Sulfate 4 Mg/Ml Cartridge IVPUSH 4 mg Q6H PRN Administration Pain, Severe (Pain Scale 7-10) Ondansetron HCl 4 mg 01/23/20 09:36 Ondansetron Hcl 4 Mg/2 Ml Vial IVPUSH Q8H PRN Nausea and Vomiting Sodium Chloride 3 ml 01/23/20 09:36 01/26/20 08:17 0.9 % Sodium Chloride Flush 3 Ml Syringe IVFLUSH 3 ml QSHIFT [facility] Administration Tramadol HCl 50 mg 01/23/20 09:36 01/26/20 08:16 Tramadol Hcl 50 Mg Tablet PO 50 mg DAILY [facility] Administration Labs CBC & Chem 7: 01/24/20 05:14 01/26/20 09:35 Microbiology Microbiology Results: Microbiology 01/24/20 14:42 Abscess Soft Tissue Gram Stain - Final 01/24/20 14:42 Abscess Soft Tissue Routine Culture - Preliminary Staphylococcus species 01/23/20 02:40 Blood - Venous Blood Culture - Preliminary No growth after 48 hours. 01/23/20 02:40 Blood - Venous Blood Culture - Preliminary No growth after 48 hours. Assessment and Plan (1) Skin abscess: Status: Acute (2) Hypertension: Status: Acute (3) Arthritis: Status: Acute (4) Cellulitis: Status: Acute Assessment and Plan: 54-year-old female who presents to the hospital with leg cellulitis and abscess pain # left lower extremity skin abscess that looks like spider bite with cellulitis -S/P I&D pm 01/24/[address] Howe--see pre and post I&D pictures above -Hold Mayrao today as level high -Consider ID consult -Surgery follwing for wound care # HTN--controlled. # Fibromyalgia - continue gabapentin Possible d/c with PO Abx today if ok with surgery
[2020-01-26 12:00] VITALS: BP 112/73; PULSE 78; RESP 19; TEMP 36.1; O2SAT 97
--- NOTE | 2020-01-26 12:20 | PM.DS ---
DS: Providers Provider Date of admission: 01/23/20 05:37 Primary care physician: Chelsi Reece MD Consults: 01/24/20 11:35 Consult to General Surgery Routine Consulting Provider: [facility] [place] General Surgeons Reason for consultation: Skin abscess that need I and D Has provider been notified: Yes DS: Diagnosis Discharge Diagnosis (1) Skin abscess: Status: Acute (2) Hypertension: Status: Acute (3) Arthritis: Status: Acute (4) Cellulitis: Status: Acute (5) Morbid obesity: Status: Acute DS: Summary Hospital Course Hospital Course: 54 year female with presented with abscess of left left originating her scratching the area a week ealier. She was admitted with abscess with associated cellulitis. During hospitalization was covered with IV Vancomycin from 01/22 to 01/25. The area was I and D and packed by Dr. Howe on Tuesday 01/23. Cultures is growing Staph Species. Blood cultures have been negative. WBC is within normal. She is non-diabetic. Discussed further care with covering surgeon today Dr. Huff and will discharge with oral Doxycyline and follow up with PCP and Dr. Howe on outpatient basis. She encouraged to loose weignt as this will help with overall wellbeing and in this case help with healing Time Spent with Patient Time attestation: Total time spent providing and/or coordinating discharge services: Time spent: Greater than 30 minutes Physical Exam Vital Signs: Vital Signs: Vital Signs Temp Pulse Resp BP Pulse Ox 01/26/20 08:15 75 130/67 01/26/20 07:44 98.1 F 75 19 130/67 97 01/26/20 03:46 97.1 F 61 16 113/54 L 96 01/25/20 23:24 97.1 F 74 16 119/68 96 01/25/20 19:14 96.9 F 69 16 107/56 L 95 01/25/20 16:00 97.1 F 83 18 123/69 95 01/25/20 15:37 97.1 F 83 18 123/69 95 Body Mass Index 45.9 See progress note of today for details DS: Data Data Completed and Pending Labs on day of discharge: Labs from last 24 hours 01/26/20 01/26/20 09:35 04:15 Sodium 138 Potassium 3.7 Chloride 101 Carbon Dioxide 31 H Anion Gap 10 L BUN 15 Creatinine 0.71 Estim Creat Clear Calc 115.0 Estimated GFR > 60 Random Glucose 156 H D Calcium 9.2 Vancomycin Trough 22.3 H Preliminary micro results at discharge 01/24/20 14:42 Routine Culture - Preliminary Abscess Soft Tissue Staphylococcus species 01/23/20 02:40 Blood Culture - Preliminary Blood - Venous No growth after 48 hours. 01/23/20 02:40 Blood Culture - Preliminary Blood - Venous No growth after 48 hours. Discharge Plan Discharge Anticipated Discharge Date/Time: 01/26/20 12:05 Patient Disposition: Home, Self-Care Referrals: Chelsi Kauffman MD [Primary Care Provider] - Garry Howe MD [Physician] - 1 Week (Call for Appointment, for Post hospitalization of Skin abscess follow up) Discharge Medications: New doxycycline hyclate 100 mg Tablet 100 mg PO Q12H Qty: 19 RF: 0 Continued clonazepam 0.5 mg Tablet 0.5 mg PO BEDTIME RF: 0 citalopram [Celexa] 20 mg Tablet 20 mg PO DAILY RF: 0 gabapentin 400 mg Capsule 400 mg PO DAILY RF: 0 tramadol 50 mg Tablet 50 mg PO DAILY RF: 0 losartan-hydrochlorothiazide 100-25 mg Tablet 1 tab PO DAILY RF: 0 amlodipine 10 mg Tablet 10 mg PO DAILY RF: 0 diclofenac sodium 75 mg Tablet,Delayed Release (Dr/Ec) 75 mg PO BID RF: 0 aspirin 81 mg Tablet 81 mg PO DAILY RF: 0 duloxetine 60 mg Capsule,Delayed Release(Dr/Ec) 60 mg PO DAILY RF: 0 Discharge Orders: Discharge Order (Routine); Ordered 01/26/20 Ordered By: Rigo Thompson Activity on Discharge: As tolerated Discharge Date/Time: 01/26/20 14:00 Visit Report Forms: Patient Portal Discharge page Care Plan Goals: Resolution of Cellulitis and wound on the leg Health Concerns: Worseneing of wound and possible needing additional procedures Plan of Treatment: Take Doxycyline as recommeded, Wound care as recommended, follow up with your Doctor in a week call for appointment, Call Dr. Howe's office for follow up appointment as well. Come to emergency room with fever, chills and worsening of wound. Dry dressing to the wound daily
--- NOTE | 2020-01-26 13:24 | MHC.CM.PN ---
Discharged today, home with no services pt to self arrange transportation
== END 2020-01-26 14:00 | disposition home or self-care (01) | DRG 364 ==
LOC: HO.ED 05:28 → HO.IMC 06:04 → HO.S3 06:45
PROVIDERS: Admitting Provider Internal Medicine; Emergency Provider Emergency Medicine; PCP Internal Medicine; Visit Provider Internal Medicine
DX: L02.416 Cutaneous abscess of left lower limb (principal); E66.01 Morbid (severe) obesity due to excess calories; I10 Essential (primary) hypertension; L03.116 Cellulitis of left lower limb; M79.7 Fibromyalgia; Z68.42 Body mass index [BMI] 45.0-49.9, adult; Z79.82 Long term (current) use of aspirin; Z79.891 Long term (current) use of opiate analgesic; Z79.899 Other long term (current) drug therapy
CPT/HCPCS: 36415; 80048; 80076; 80202; 83605; 85025; 87040; 87071; 87077; 87147; 87186; 87205; 96360; 99285; J1650; J2270; J3370

== ENCOUNTER → 2020-01-30 15:52 | Outpatient (BNVA) | payer MEDICAID, SELFPAY | PROVIDERS: PCP Internal Medicine; Visit Provider Surgery | DX: Z48.00 Encounter for change or removal of nonsurgical wound dressing (principal); L02.91 Cutaneous abscess, unspecified | CPT/HCPCS: 99212; 99213 ==

== ENCOUNTER 2020-03-07 12:55 | Emergency (ER) | payer MEDICAID, SELFPAY ==
[2020-03-07 13:28] VITALS: BP 153/79; PULSE 92; RESP 18; TEMP 36; O2SAT 95; BMI 42.9
--- NOTE | 2020-03-07 13:28 | ED.BACK ---
HPI - Back Pain/Injury General Chief Complaint: Back Pain/Injury Stated Complaint: back pain Time Seen by Provider: 03/07/20 13:24 Source: patient Mode of arrival: ambulatory Limitations: language barrier History of Present Illness HPI Narrative: 54 y/o female with history of obesity, chronic back pain, fibromyalgia who presents with bilateral low back pain that radiates to her buttocks after she she slipped in the bathtub and grabbed the handle bar to catch herself 2 weeks ago. She did not fall but she reports pulling her back out. History of similar episodes in the past. She has been taking her daily tramadol without effect. She denies numbness, tingling, paresthesias, incontince and LE weakness. No urinary symptoms. MD elicited complaint: back pain Pertinent past history: prior back pain Onset (ago): week(s) (2) Timing: constant Severity: severe Similar Symptoms Previously: Yes Quality: aching and spasming Location: right lower back and left lower back Radiation: buttocks Exacerbating factors: movement and coughing/sneezing Relieving factors: none Context: turning/twisting Associated symptoms: denies other symptoms Treatments prior to arrival: prescription analgesics Work related injury: No Related Data Home Medications Medication Instructions Recorded Confirmed amlodipine 10 mg PO DAILY 01/23/20 01/23/20 aspirin 81 mg PO DAILY 01/23/20 01/23/20 citalopram [Celexa] 20 mg PO DAILY 01/23/20 01/23/20 clonazepam 0.5 mg PO BEDTIME 01/23/20 01/23/20 diclofenac sodium 75 mg PO BID 01/23/20 01/23/20 duloxetine 60 mg PO DAILY 01/23/20 01/23/20 gabapentin 400 mg PO DAILY 01/23/20 01/23/20 losartan-hydrochlorothiazide 1 tab PO DAILY 01/23/20 01/23/20 tramadol 50 mg PO DAILY 01/23/20 01/23/20 Previous Rx's Medication Instructions Recorded doxycycline hyclate 100 mg PO Q12H #19 tab 01/26/20 cyclobenzaprine 10 mg PO TID PRN #15 tab 03/07/20 lidocaine [Lidoderm] 1 patch TOPICAL DAILY #15 ea 03/07/20 naproxen 500 mg PO BID PRN #20 tab 03/07/20 oxycodone 5 mg PO Q8H PRN #7 tab 03/07/20 Allergies Allergy/AdvReac Type Severity Reaction Status Date / Time No Known Allergies Allergy Verified 03/07/20 13:30 [No Known Allergies*] Review of Systems Review of Systems: Constitutional: No Fever, No Chills Cardiovascular: No Chest Pain, No SOB, No Orthopnea, No Edema Respiratory: No Cough, No Sputum, No Wheezing, No dyspnea Gastrointestinal: No Nausea, No Vomiting, No Diarrhea, No abdominal Pain Genitourinary: No Dysuria, No Urinary Frequency, No Hematuria Musculoskeletal: + joint pain, + Myalgias Skin: No Skin Lesions, No rash Neuro: No Weakness, No Numbness, No Dizziness, + Headache Psych: No Anxiety/Panic, No Depression Heme/Lymph: No Bruising, No Lymphadenopathy Endocrine: No Polyuria, No Polydipsia PMFSH Past Medical History Attestation statement: The following information was validated with the patient. Medical History Arthritis Fibromyalgia Hypertension Osteoarthritis Subcutaneous abscess Social History Social History Household Members: Family Housing: Apartment Smoking Status: Never smoker Second Hand Smoke Exposure: No Advance Directives: No Advance Directives Information Provided: No service: No Current occupational status: unemployed Physical Exam Vital Signs: Appearance: Alert. Oriented X3. No acute distress. HEENT: normal inspection Respiratory: No respiratory distress. Skin: Skin warm and dry. Normal skin color. Normal skin turgor. No rashes. Extremities: left lower leg with 1cm ciruclar scabbing from prior spider bite, no signs of active infection. scab is brown and flakey, no pus or erythema. Back: soft tissue tenderness of lumbar and thoracic areas, SI joint tenderness, no spinal tenderness. Neuro: Oriented X 3. No motor deficit. No sensory deficit. Course Course Course Narrative: 54 y/o with muscular back pain after she caught herself from falling 2 weeks ago. Spasm and tenderness on exam. No radiculopathy. No need for imaging at this time. Will symptomatically treat and have her follow up with her PCP given her chronic issues. She agrees with plan and all questions were answered. Discharge Plan Discharge Clinical Impression: Strain of lumbar region Qualifiers: Encounter type: initial encounter Qualified Code(s): S39.012A - Strain of muscle, fascia and tendon of lower back, initial encounter Patient Disposition: Home, Self-Care Instructions: Low Back Strain (ED), Lower Back Exercises (ED) Additional Instructions: Use ice and/or heat several times per day for pain. Take prescribed medications as needed for pain/discomfort. Limit bending, lifting >10 lbs, and twisting motions. Follow up with your doctor on Monday. You would benefit from Physical Therapy. If you develop worsening pain, numbness, tingling, incontinence or loss of function come back to the ER for further evaluation. Prescriptions: New cyclobenzaprine 10 mg tablet 10 mg PO TID PRN (Reason: muscle spasm) Qty: 15 RF: 0 lidocaine [Lidoderm] 5 % adhesive patch,medicated 1 patch topical DAILY Qty: 15 RF: 0 naproxen 500 mg tablet 500 mg PO BID PRN (Reason: pain) Qty: 20 RF: 0 oxycodone 5 mg tablet 5 mg PO Q8H PRN (Reason: pain) Qty: 7 RF: 0 Continued clonazepam 0.5 mg Tablet 0.5 mg PO BEDTIME RF: 0 citalopram [Celexa] 20 mg Tablet 20 mg PO DAILY RF: 0 gabapentin 400 mg Capsule 400 mg PO DAILY RF: 0 tramadol 50 mg Tablet 50 mg PO DAILY RF: 0 losartan-hydrochlorothiazide 100-25 mg Tablet 1 tab PO DAILY RF: 0 amlodipine 10 mg Tablet 10 mg PO DAILY RF: 0 aspirin 81 mg Tablet 81 mg PO DAILY RF: 0 duloxetine 60 mg Capsule,Delayed Release(Dr/Ec) 60 mg PO DAILY RF: 0 doxycycline hyclate 100 mg Tablet 100 mg PO Q12H Qty: 19 RF: 0 Held diclofenac sodium 75 mg Tablet,Delayed Release (Dr/Ec) 75 mg PO BID RF: 0 Hold Instructions: Resume on 03/14/20. while you are taking Naproxen Discharge Date/Time: 03/07/20 13:37 Print Language: Italian
== END 2020-03-07 13:37 | disposition home or self-care (01) ==
PROVIDERS: Emergency Provider Internal Medicine; PCP Internal Medicine
DX: S39.012A Strain of muscle, fascia and tendon of lower back, initial encounter (principal); M54.6 Pain in thoracic spine; I10 Essential (primary) hypertension; W18.30XA Fall on same level, unspecified, initial encounter; Y93.9 Activity, unspecified; Y92.9 Unspecified place or not applicable; Y99.9 Unspecified external cause status; Z79.899 Other long term (current) drug therapy
CPT/HCPCS: 99283

== ENCOUNTER 2020-03-31 13:33 | Outpatient (REF) | payer MEDICAID, SELFPAY ==
[2020-04-03 08:43] LABS: HPV mRNA E6/E7 rflx Not Detected (Not Detected)
== END 2020-03-31 13:34 | disposition home or self-care (01) ==
LOC: HO.LAB 13:33
PROVIDERS: PCP Internal Medicine; Referring Provider Internal Medicine; Visit Provider Advanced Practice Midwife
DX: Z01.419 Encounter for gynecological examination (general) (routine) without abnormal findings (principal); Z78.0 Asymptomatic menopausal state; L73.2 Hidradenitis suppurativa
CPT/HCPCS: 87624; 87625; 88141; 88142

== ENCOUNTER → 2020-04-14 11:20 | Outpatient (BNVA) | payer MEDICAID, SELFPAY | PROVIDERS: PCP Internal Medicine; Referring Provider Internal Medicine; Visit Provider Orthopaedic Surgery | DX: M17.11 Unilateral primary osteoarthritis, right knee (principal) | CPT/HCPCS: 20610; 99212; J1040 ==

== ENCOUNTER 2020-04-21 12:34 | Outpatient (REF) | payer MEDICAID, SELFPAY ==
--- NOTE | 2020-04-21 12:41 | XR_ITS ---
EXAMINATION: XR LUMBOSACRAL SPINE CLINICAL INFORMATION: Back pain with sciatica. Fall. COMPARISON: None TECHNIQUE: Three views of the lumbosacral spine. FINDINGS: The lumbar lordosis is maintained. Grade 2 anterolisthesis of L5 on S1 with chronic bilateral spondylolysis. Partially visualized loss of vertebral body height at T10 and T11, consistent with compression fractures. Findings appear chronic. Multilevel bridging endplate osteophytes. Multilevel loss of intervertebral disc height with anterior endplate osteophytes. Multilevel bilateral facet arthropathy, most prominent at L4-L5 and L5-S1. XR/XR lumbar spine 2-3V IMPRESSION: 1. Chronic-appearing compression fractures of T10 and T11. 2. Chronic grade 2 anterolisthesis of L5 on S1 with chronic bilateral spondylolysis. 3. Multilevel degenerative disc disease with lower lumbar spine bilateral facet arthropathy.
== END 2020-04-21 12:35 | disposition home or self-care (01) ==
LOC: HO.XRAY 12:34
PROVIDERS: Absent Provider Internal Medicine; PCP Internal Medicine; Visit Provider Nurse Practitioner Family
DX: M54.41 Lumbago with sciatica, right side (principal); M54.42 Lumbago with sciatica, left side; Z91.81 History of falling; M75.42 Impingement syndrome of left shoulder; M75.41 Impingement syndrome of right shoulder; M17.0 Bilateral primary osteoarthritis of knee
CPT/HCPCS: 20610; 72100; 99212; J1040

== ENCOUNTER 2020-06-03 09:18 | Emergency (ER) | payer MEDICAID, SELFPAY ==
--- NOTE | ~2020-06-03 | XR_ITS ---
EXAMINATION: XR CHEST CLINICAL INFORMATION: Right upper chest pain COMPARISON: Previous chest x-ray December 2019 TECHNIQUE: Frontal view of the chest was obtained. FINDINGS: The cardiac and mediastinal contours are normal. The lungs are clear. There is no pleural effusion or pneumothorax. There are degenerative changes of the spine and shoulders. XR/XR chest 1V IMPRESSION: No evidence for acute disease in the chest.
[2020-06-03 09:25] VITALS: BP 106/72; PULSE 81; RESP 18; TEMP 36.6; O2SAT 99; BMI 40.0
--- NOTE | 2020-06-03 10:25 | ED_ITS ---
HPI - General Adult General Chief complaint: General Medical <WON Holley - Last Filed: 06/03/20 12:59> Stated complaint: HBP <WON Holley - Last Filed: 06/03/20 12:59> Time Seen by Provider: 06/03/20 10:07 <WON Holley Last Filed: 06/03/20 12:59> Source: patient <WON Holley Last Filed: 06/03/20 12:59> Mode of arrival: ambulatory <WON Holley Last Filed: 06/03/20 12:59> Limitations: language barrier <WON Holley Last Filed: 06/03/20 12:59> History of Present Illness HPI narrative: 54 y/o female with history of obesity, osteoarthritis, cellulitis, hidradinitis supperativa, migraines who presents to the ED with 1 week of right sided headache, nausea and intermittent dizziness. She also report body aches and 1 episode of vomiting. No abdominal pain, fever, chills, diarrhea. No SOB, cough or chest pain. Her right upper chest is sore to the touch. She has had several headaches like this in the past but not with the other symptoms. She denies sick contacts. She is steady on her feet. The dizziness only occurs when she gets up off the cough too quickly and it resolves within a few seconds. <WON Holley Last Filed: 06/03/20 12:59> MD complaint: headache, body aches, dizziness, nausea <WON Holley Last Filed: 06/03/20 12:59> Onset (ago): week(s) (1) <WON Holley Last Filed: 06/03/20 12:59> Location: head, chest, back and abdomen <WON Holley Last Filed: 06/03/20 12:59> Radiation: non-radiation <WON Holley Last Filed: 06/03/20 12:59> Severity: moderate <WON Holley Last Filed: 06/03/20 12:59> Quality: aching <WON Holley Last Filed: 06/03/20 12:59> Pain Consistency: intermittent <WON Holley - Last Filed: 06/03/20 12:59> Relieving factors: medication <WON Holley - Last Filed: 06/03/20 12:59> Exacerbating factors: movement <WON Holley - Last Filed: 06/03/20 12:59> Associated symptoms: headaches and nausea/vomiting <WON Holley - Last Filed: 06/03/20 12:59> Treatments prior to arrival: none <WON Holley - Last Filed: 06/03/20 12:59> Related Data Home medications: Home Medications Medication Instructions Recorded Confirmed amlodipine 10 mg PO DAILY 01/23/20 01/23/20 aspirin 81 mg PO DAILY 01/23/20 01/23/20 citalopram [Celexa] 20 mg PO DAILY 01/23/20 01/23/20 clonazepam 0.5 mg PO BEDTIME 01/23/20 01/23/20 diclofenac sodium 75 mg PO BID 01/23/20 01/23/20 duloxetine 60 mg PO DAILY 01/23/20 01/23/20 gabapentin 400 mg PO DAILY 01/23/20 01/23/20 losartan-hydrochlorothiazide 1 tab PO DAILY 01/23/20 01/23/20 tramadol 50 mg PO DAILY 01/23/20 01/23/20 loperamide 2 mg tablet 2 mg PO Q6H PRN 06/19/20 Previous Rx's Medication Instructions Recorded doxycycline hyclate 100 mg PO Q12H #19 tab 01/26/20 cyclobenzaprine 10 mg PO TID PRN #15 tab 03/07/20 lidocaine [Lidoderm] 1 patch TOPICAL DAILY #15 ea 03/07/20 naproxen 500 mg PO BID PRN #20 tab 03/07/20 oxycodone 5 mg PO Q8H PRN #7 tab 03/07/20 qxylyijvqh-clylelrgkmzfx-waou 1 cap PO Q4-6H PRN #14 cap 06/03/20 [Fioricet] ondansetron HCl [Zofran] 4 mg PO Q8H PRN #10 tab 06/03/20 <WON Holley Last Filed: 06/03/20 12:59> Allergies/adverse reactions: Allergies Allergy/AdvReac Type Severity Reaction Status Date / Time No Known Allergies Allergy Verified 06/19/20 10:46 [No Known Allergies*] <WON Holley - Last Filed: 06/03/20 12:59> Review of Systems Review of Systems: Constitutional: No Fever, No Chills ENT/Mouth: No sore throat, No Rhinorrhea, No Swallowing Difficulty Eyes: + Eye Pain (right eye), No Swelling, No Redness Cardiovascular: No Chest Pain, No SOB, No Orthopnea, No Edema Respiratory: No Cough, No Sputum, No Wheezing, No dyspnea Gastrointestinal: + Nausea, + Vomiting, No Diarrhea, No abdominal Pain Genitourinary: No Dysuria, No Urinary Frequency, No Hematuria Musculoskeletal:+o joint pain, + Myalgias Skin: No Skin Lesions, No rash Neuro: No Weakness, No Numbness, + Dizziness, + Headache Psych: + Anxiety/Panic, No Depression Heme/Lymph: No Bruising, No Lymphadenopathy Endocrine: No Polyuria, No Polydipsia <WON Holley - Last Filed: 06/03/20 12:59> [facility] Past Medical History Attestation statement: The following information was validated with the patient. <WON Holley - Last Filed: 06/03/20 12:59> Medical History: Medical History (Updated 06/19/20 @ 11:19 by ROMMEL Hart) Arthritis Fibromyalgia Hypertension Osteoarthritis Subcutaneous abscess <WON Holley - Last Filed: 06/03/20 12:59> Surgical History: Surgical History (Updated 06/19/20 @ 10:52 by JOSIANE Terry) History of cholecystectomy (~2019) <WON Holley - Last Filed: 06/03/20 12:59> Family History Family History: Family History (Updated 06/19/20 @ 10:54 by JOSIANE Terry) Father Stomach cancer Brother Stomach problems <WON Holley Last Filed: 06/03/20 12:59> Social History Social History: Social History (Updated 06/19/20 @ 10:54 by JOSIANE Terry) Household Members: Family Housing: Apartment Alcohol intake: current Alcohol intake frequency: does not drink Smoking Status: Never smoker Second Hand Smoke Exposure: No service: No Current occupational status: unemployed <WON Holley - Last Filed: 06/03/20 12:59> Physical Exam Vital Signs: Vital Signs: Last Vital Signs Temp 98 F 06/03/20 09:25 Pulse 67 06/03/20 12:55 Resp 16 06/03/20 12:55 BP 115/60 06/03/20 12:55 Pulse Ox 99 06/03/20 12:55 Body Mass Index 40.0 Appearance: Alert. Oriented X3. No acute distress. Eyes: Pupils equal, round and reactive to light. EOMI, no nystagmus ENT: Pharynx normal. Neck: Normal inspection. Neck supple. CVS: Normal heart rate and rhythm. Pulses normal. Respiratory: No respiratory distress. Breath sounds normal. Abdomen: Soft and non-tender. +BS x4 Skin: Skin warm and dry. Normal skin color. Normal skin turgor. No rashes. Extremities: No lower extremity edema. Neuro: Oriented X 3. No motor deficit. No sensory deficit. Steady gait. <WON Holley - Last Filed: 06/03/20 12:59> Vital Signs: Last Vital Signs Temp 98 F 06/03/20 09:25 Pulse 67 06/03/20 12:55 Resp 16 06/03/20 12:55 BP 115/60 06/03/20 12:55 Pulse Ox 99 06/03/20 12:55 Body Mass Index 40.0 <Mynor Gage MD - Last Filed: 06/23/20 07:58> Course Course Course Narrative: 54 y/o female presenting with multiple complaints including right sided headache, eye pain (similar to previous migraines), dizziness, N/V, and body aches. Concern for viral syndrome, specifically COVID. Will get lab workup, CXR, EKG and orthostatic VS. She appears well on exam and is non-focal. Will treat with Benadryl, Reglan and Toradol for headache and reassess. <WON Holley - Last Filed: 06/03/20 12:59> I have reviewed the chart <Mynor Gage MD - Last Filed: 06/23/20 07:58> Reevaluation(s) Reevaluation #1: Lab workup is unremarkable. CXR normal. COVID negative. She is feeling significantly better after meds for headache. She is ambulating well on her feet and is not dizzy. She is stable for discharge. She has an appointment with her PCP tomorrow. <WON Holley - Last Filed: 06/03/20 12:59> Medical Decision Making Lab Data Result diagrams: : 06/03/20 11:11 06/03/20 11:11 <WON Holley - Last Filed: 06/03/20 12:59> Labs: Lab Results 06/03/20 06/03/20 06/03/20 Range/Units 11:09 11:09 11:11 WBC 7.9 (4.8-10.8) X10*3/uL RBC 4.62 D (4.20-5.50) X10*6/uL Hgb 13.3 (12.0-16.0) g/dl Hct 41.0 (37-47) % MCV 88.7 (80-98) fL MCH 28.8 (27.0-33.0) pg MCHC 32.4 (31.0-35.0) g/dl RDW 15.0 (11.0-16.0) % Plt Count 221 (160-400) X10*3/uL MPV 11.1 (9.4-12.3) fL Immature Gran % (Auto) 0.3 (0.0-0.4) % Neut % (Auto) 63.5 (45-73) % Lymph % (Auto) 25.7 (20-40) % [place] % (Auto) 8.8 (2-11) % Eos % (Auto) 1.4 (0-4) % Baso % (Auto) 0.3 (0-2) % Lymph # (Auto) 2.0 (1.2-4.9) X10*3/uL [place] # (Auto) 0.7 (0.1-1.2) X10*3/uL Eos # (Auto) 0.1 (0.0-0.4) X10*3/uL Baso # (Auto) 0.0 (0.0-0.2) X10*3/uL Abs Immat Gran (auto) 0.02 (0.00-0.03) X10*3/uL Absolute Neuts (auto) 5.0 (2.0-8.3) X10*3/uL Absolute Nucleated RBC 0.000 (0.0-0.012) X10*3/uL Nucleated RBC % (auto) 0.0 (0.0-0.2) /100WBC Hold Blue Top Sodium (135-145) mmol/L Potassium (3.3-5.1) mmol/L Chloride (96-108) mmol/L Carbon Dioxide (22-29) mmol/L Anion Gap (12-20) BUN (9-16) mg/dL Creatinine (0.5-1.4) mg/dL Estim Creat Clear Calc Estimated GFR Random Glucose (60-115) mg/dL Calcium (8.4-10.2) mg/dL Magnesium (1.6-2.6) mg/dL Total Bilirubin (0.0-1.0) mg/dL Direct Bilirubin (0.0-0.5) mg/dL AST (5-31) U/L ALT (0-31) U/L Alkaline Phosphatase (39-117) U/L Total Protein (6.5-8.0) g/dL Albumin (3.5-5.0) g/dL Urine Color Urine Appearance Urine pH (5.0-8.0) Ur Specific [place] (1.005-1.025) Urine Protein (NEG-TRACE) MG/DL Urine Glucose (UA) (NEG) MG/DL Urine Ketones (NEG) MG/DL Urine Blood (NEG) Urine Nitrite (NEG) Ur Leukocyte Esterase (NEG) Coronavirus (PCR) Cancelled COVID-19 (YURI) Negative (Negative) COVID-19 Clin Com See Note Influenza Type A (PCR) Cancelled Influenza Type B (PCR) Cancelled RSV RNA Qual (PCR) Cancelled 06/03/20 06/03/20 06/03/20 Range/Units 11:11 11:11 11:43 WBC (4.8-10.8) X10*3/uL RBC (4.20-5.50) X10*6/uL Hgb (12.0-16.0) g/dl Hct (37-47) % MCV (80-98) fL MCH (27.0-33.0) pg MCHC (31.0-35.0) g/dl RDW (11.0-16.0) % Plt Count (160-400) X10*3/uL MPV (9.4-12.3) fL Immature Gran % (Auto) (0.0-0.4) % Neut % (Auto) (45-73) % Lymph % (Auto) (20-40) % [place] % (Auto) (2-11) % Eos % (Auto) (0-4) % Baso % (Auto) (0-2) % Lymph # (Auto) (1.2-4.9) X10*3/uL [place] # (Auto) (0.1-1.2) X10*3/uL Eos # (Auto) (0.0-0.4) X10*3/uL Baso # (Auto) (0.0-0.2) X10*3/uL Abs Immat Gran (auto) (0.00-0.03) X10*3/uL Absolute Neuts (auto) (2.0-8.3) X10*3/uL Absolute Nucleated RBC (0.0-0.012) X10*3/uL Nucleated RBC % (auto) (0.0-0.2) /100WBC Hold Blue Top SEE NOTE Sodium 137 (135-145) mmol/L Potassium 3.6 (3.3-5.1) mmol/L Chloride 105 (96-108) mmol/L Carbon Dioxide 24 (22-29) mmol/L Anion Gap 12 (12-20) BUN 23 H D (9-16) mg/dL Creatinine 0.62 (0.5-1.4) mg/dL Estim Creat Clear Calc 130.4 Estimated GFR > 60 Random Glucose 121 H (60-115) mg/dL Calcium 8.9 (8.4-10.2) mg/dL Magnesium 2.0 (1.6-2.6) mg/dL Total Bilirubin 0.3 (0.0-1.0) mg/dL Direct Bilirubin < 0.2 (0.0-0.5) mg/dL AST 13 (5-31) U/L ALT 20 (0-31) U/L Alkaline Phosphatase 107 (39-117) U/L Total Protein 6.6 (6.5-8.0) g/dL Albumin 3.9 (3.5-5.0) g/dL Urine Color YELLOW Urine Appearance CLEAR Urine pH 6.0 (5.0-8.0) Ur Specific [place] 1.020 (1.005-1.025) Urine Protein NEG (NEG-TRACE) MG/DL Urine Glucose (UA) NEG (NEG) MG/DL Urine Ketones NEG (NEG) MG/DL Urine Blood NEG (NEG) Urine Nitrite NEG (NEG) Ur Leukocyte Esterase NEG (NEG) Coronavirus (PCR) COVID-19 ([facility]URI) (Negative) COVID-19 Clin Com Influenza Type A (PCR) Influenza Type B (PCR) RSV RNA Qual (PCR) <WON Holley - Last Filed: 06/03/20 12:59> Lab Results 06/03/20 06/03/20 06/03/20 Range/Units 11:09 11:09 11:11 WBC 7.9 (4.8-10.8) X10*3/uL RBC 4.62 D (4.20-5.50) X10*6/uL Hgb 13.3 (12.0-16.0) g/dl Hct 41.0 (37-47) % MCV 88.7 (80-98) fL MCH 28.8 (27.0-33.0) pg MCHC 32.4 (31.0-35.0) g/dl RDW 15.0 (11.0-16.0) % Plt Count 221 (160-400) X10*3/uL MPV 11.1 (9.4-12.3) fL Immature Gran % (Auto) 0.3 (0.0-0.4) % Neut % (Auto) 63.5 (45-73) % Lymph % (Auto) 25.7 (20-40) % [place] % (Auto) 8.8 (2-11) % Eos % (Auto) 1.4 (0-4) % Baso % (Auto) 0.3 (0-2) % Lymph # (Auto) 2.0 (1.2-4.9) X10*3/uL [place] # (Auto) 0.7 (0.1-1.2) X10*3/uL Eos # (Auto) 0.1 (0.0-0.4) X10*3/uL Baso # (Auto) 0.0 (0.0-0.2) X10*3/uL Abs Immat Gran (auto) 0.02 (0.00-0.03) X10*3/uL Absolute Neuts (auto) 5.0 (2.0-8.3) X10*3/uL Absolute Nucleated RBC 0.000 (0.0-0.012) X10*3/uL Nucleated RBC % (auto) 0.0 (0.0-0.2) /100WBC Hold Blue Top Sodium (135-145) mmol/L Potassium (3.3-5.1) mmol/L Chloride (96-108) mmol/L Carbon Dioxide (22-29) mmol/L Anion Gap (12-20) BUN (9-16) mg/dL Creatinine (0.5-1.4) mg/dL Estim Creat Clear Calc Estimated GFR Random Glucose (60-115) mg/dL Calcium (8.4-10.2) mg/dL Magnesium (1.6-2.6) mg/dL Total Bilirubin (0.0-1.0) mg/dL Direct Bilirubin (0.0-0.5) mg/dL AST (5-31) U/L ALT (0-31) U/L Alkaline Phosphatase (39-117) U/L Total Protein (6.5-8.0) g/dL Albumin (3.5-5.0) g/dL Urine Color Urine Appearance Urine pH (5.0-8.0) Ur Specific [place] (1.005-1.025) Urine Protein (NEG-TRACE) MG/DL Urine Glucose (UA) (NEG) MG/DL Urine Ketones (NEG) MG/DL Urine Blood (NEG) Urine Nitrite (NEG) Ur Leukocyte Esterase (NEG) Coronavirus (PCR) Cancelled COVID-19 (YURI) Negative (Negative) COVID-19 Clin Com See Note Influenza Type A (PCR) Cancelled Influenza Type B (PCR) Cancelled RSV RNA Qual (PCR) Cancelled 06/03/20 06/03/20 06/03/20 Range/Units 11:11 11:11 11:43 WBC (4.8-10.8) X10*3/uL RBC (4.20-5.50) X10*6/uL Hgb (12.0-16.0) g/dl Hct (37-47) % MCV (80-98) fL MCH (27.0-33.0) pg MCHC (31.0-35.0) g/dl RDW (11.0-16.0) % Plt Count (160-400) X10*3/uL MPV (9.4-12.3) fL Immature Gran % (Auto) (0.0-0.4) % Neut % (Auto) (45-73) % Lymph % (Auto) (20-40) % [place] % (Auto) (2-11) % Eos % (Auto) (0-4) % Baso % (Auto) (0-2) % Lymph # (Auto) (1.2-4.9) X10*3/uL [place] # (Auto) (0.1-1.2) X10*3/uL Eos # (Auto) (0.0-0.4) X10*3/uL Baso # (Auto) (0.0-0.2) X10*3/uL Abs Immat Gran (auto) (0.00-0.03) X10*3/uL Absolute Neuts (auto) (2.0-8.3) X10*3/uL Absolute Nucleated RBC (0.0-0.012) X10*3/uL Nucleated RBC % (auto) (0.0-0.2) /100WBC Hold Blue Top SEE NOTE Sodium 137 (135-145) mmol/L Potassium 3.6 (3.3-5.1) mmol/L Chloride 105 (96-108) mmol/L Carbon Dioxide 24 (22-29) mmol/L Anion Gap 12 (12-20) BUN 23 H D (9-16) mg/dL Creatinine 0.62 (0.5-1.4) mg/dL Estim Creat Clear Calc 130.4 Estimated GFR > 60 Random Glucose 121 H (60-115) mg/dL Calcium 8.9 (8.4-10.2) mg/dL Magnesium 2.0 (1.6-2.6) mg/dL Total Bilirubin 0.3 (0.0-1.0) mg/dL Direct Bilirubin < 0.2 (0.0-0.5) mg/dL AST 13 (5-31) U/L ALT 20 (0-31) U/L Alkaline Phosphatase 107 (39-117) U/L Total Protein 6.6 (6.5-8.0) g/dL Albumin 3.9 (3.5-5.0) g/dL Urine Color YELLOW Urine Appearance CLEAR Urine pH 6.0 (5.0-8.0) Ur Specific [place] 1.020 (1.005-1.025) Urine Protein NEG (NEG-TRACE) MG/DL Urine Glucose (UA) NEG (NEG) MG/DL Urine Ketones NEG (NEG) MG/DL Urine Blood NEG (NEG) Urine Nitrite NEG (NEG) Ur Leukocyte Esterase NEG (NEG) Coronavirus (PCR) COVID-19 ([facility]URI) (Negative) COVID-19 Clin Com Influenza Type A (PCR) Influenza Type B (PCR) RSV RNA Qual (PCR) <Mynor Gage MD - Last Filed: 06/23/20 07:58> ECG Data Attestation: I personally reviewed and interpreted this ECG as follows: <WON Holley - Last Filed: 06/03/20 12:59> Interpretation: normal sinus rhythm, HR 66 bpm, normal AL interval, normal QTc, no ST segment elevations <WON Holley - Last Filed: 06/03/20 12:59> Critical Care Time Critical Care Time Critical Care Time: No <WON Holley - Last Filed: 06/03/20 12:59> Discharge Plan Discharge Clinical Impression: Migraine <WON Holley - Last Filed: 06/03/20 12:59> Patient Disposition: Home, Self-Care <WON Holley - Last Filed: 06/03/20 12:59> Instructions: Migraine Headache (ED) <WON Holley - Last Filed: 06/03/20 12:59> Additional Instructions: Your lab workup today was normal. Your EKG was normal. You were negative for COVID-19. Take the prescribed mediation as needed for headaches. Take the prescribed medication as needed for nausea. Rest and stay hydrated. Follow up with your doctor tomorrow as jazlynuduled. If you have worsening symptoms come back to the ER for further evaluation. <WON Holley - Last Filed: 06/03/20 12:59> Prescriptions: New ondansetron HCl [Zofran] 4 mg tablet 4 mg PO Q8H PRN (Reason: nausea and vomiting) Qty: 10 RF: 0 [id number]-nkcrqzdqymqor-qcpa [Fioricet] 50-300-40 mg capsule 1 cap PO Q4-6H PRN (Reason: headache) Qty: 14 RF: 0 No Action clonazepam 0.5 mg Tablet 0.5 mg PO BEDTIME RF: 0 citalopram [Celexa] 20 mg Tablet 20 mg PO DAILY RF: 0 gabapentin 400 mg Capsule 400 mg PO DAILY RF: 0 tramadol 50 mg Tablet 50 mg PO DAILY RF: 0 losartan-hydrochlorothiazide 100-25 mg Tablet 1 tab PO DAILY RF: 0 amlodipine 10 mg Tablet 10 mg PO DAILY RF: 0 diclofenac sodium 75 mg Tablet,Delayed Release (Dr/Ec) 75 mg PO BID RF: 0 Hold Instructions: Resume on 03/14/20. while you are taking Naproxen aspirin 81 mg Tablet 81 mg PO DAILY RF: 0 duloxetine 60 mg Capsule,Delayed Release(Dr/Ec) 60 mg PO DAILY RF: 0 doxycycline hyclate 100 mg Tablet 100 mg PO Q12H Qty: 19 RF: 0 cyclobenzaprine 10 mg tablet 10 mg PO TID PRN (Reason: muscle spasm) Qty: 15 RF: 0 lidocaine [Lidoderm] 5 % adhesive patch,medicated 1 patch topical DAILY Qty: 15 RF: 0 naproxen 500 mg tablet 500 mg PO BID PRN (Reason: pain) Qty: 20 RF: 0 oxycodone 5 mg tablet 5 mg PO Q8H PRN (Reason: pain) Qty: 7 RF: 0 <WON Holley - Last Filed: 06/03/20 12:59> Interventions: ED Discharge Assessment Last Done: 06/03/20 13:08 <WON Holley - Last Filed: 06/03/20 12:59> Discharge Date/Time: 06/03/20 13:08 <WON Holley - Last Filed: 06/03/20 12:59>
--- NOTE | 2020-06-03 10:40 | ECG_ITS ---
Test Reason : MIGRAINE Blood Pressure : / mmHG Vent. Rate : 066 BPM Atrial Rate : 066 BPM P-R Int : 168 ms QRS Dur : 092 ms QT Int : 422 ms P-R-T Axes : 035 015 010 degrees QTc Int : 442 ms Normal sinus rhythm Normal ECG No previous ECGs available Referred By: Shereen Mares Electronically Signed By:CARA MCNEILL MD
[2020-06-03 11:02] VITALS: BP 114/62; PULSE 65; RESP 17; O2SAT 98
[2020-06-03 11:17] LABS: MANUAL DIFF FLAG NO
[2020-06-03 11:19] LABS: Basophils Percent Auto 0.3 % (0-2); Eosinophils Absolute Auto 0.1 X10*3/uL (0.0-0.4); Eosinophils Percent Auto 1.4 % (0-4); Hemoglobin 13.3 g/dl (12.0-16.0); Imm Gran Abs Auto 0.02 X10*3/uL (0.00-0.03); Imm Gran Pct Auto 0.3 % (0.0-0.4); Lymphocytes Percent Auto 25.7 % (20-40); Mean Corpuscular HGB Conc 32.4 g/dl (31.0-35.0); Mean Corpuscular Hemoglobin 28.8 pg (27.0-33.0); Mean Corpuscular Volume 88.7 fL (80-98); Mean Platelet Volume 11.1 fL (9.4-12.3); Monocytes Absolute Auto 0.7 X10*3/uL (0.1-1.2); Monocytes Percent Auto 8.8 % (2-11); Neutrophils Percent Auto 63.5 % (45-73); Platelet Count 221 X10*3/uL (160-400); Red Blood Count 4.62 X10*6/uL (4.20-5.50); White Blood Count 7.9 X10*3/uL (4.8-10.8)
[2020-06-03] MEDS: diphenhydrAMINE HCL 50 MG/ML VIAL 25 MG IVPUSH (11:50)
[2020-06-03] MEDS: Ketorolac Tromethamine 30 MG/ML VIAL IVPUSH (11:50)
[2020-06-03] MEDS: Metoclopramide HCl 10 MG/2 ML VIAL IVPUSH (11:50)
[2020-06-03 11:54] LABS: Alanine Aminotransferase 20 U/L (0-31); Albumin Level 3.9 g/dL (3.5-5.0); Alkaline Phosphatase 107 U/L (39-117); Anion Gap 12 (12-20); Aspartate Amino Transferase 13 U/L (5-31); Bilirubin Direct < 0.2 mg/dL (0.0-0.5); Bilirubin Total 0.3 mg/dL (0.0-1.0); Blood Urea Nitrogen 23 mg/dL (9-16); Calcium 8.9 mg/dL (8.4-10.2); Carbon Dioxide 24 mmol/L (22-29); Chloride 105 mmol/L (96-108); Creatinine Clr Calc Pharmacy 130.4; Estimated Glomerular Filt Rate > 60; Glucose Random 121 mg/dL (60-115); Potassium 3.6 mmol/L (3.3-5.1); Sodium 137 mmol/L (135-145); Total Protein 6.6 g/dL (6.5-8.0)
[2020-06-03 12:00] LABS: Glucose Urine UA NEG (NEG); Leukocyte Esterase Urine NEG (NEG); Nitrite Urine NEG (NEG); Urine Blood NEG (NEG); Urine Ketones NEG (NEG); Urine Protein NEG (NEG-TRACE)
[2020-06-03 12:01] LABS: COVID-19 Test Negative (Negative)
[2020-06-03 12:04] LABS: Appearance Urine CLEAR; Color Urine YELLOW
[2020-06-03 12:55] VITALS: BP 115/60; PULSE 67; RESP 16; O2SAT 99
== END 2020-06-03 13:08 | disposition home or self-care (01) ==
PROVIDERS: Physician Assistant; Emergency Provider Emergency Medicine; PCP Internal Medicine
DX: G43.011 Migraine without aura, intractable, with status migrainosus (principal); Z20.822 Contact with and (suspected) exposure to COVID-19; I10 Essential (primary) hypertension; Z79.82 Long term (current) use of aspirin; Z79.899 Other long term (current) drug therapy
CPT/HCPCS: 36415; 71045; 80048; 80076; 81003; 83735; 85025; 87635; 93005; 96374; 99283; 99284; J1200; J1885; J2765

== ENCOUNTER 2020-06-05 12:54 | Outpatient (REF) | payer MEDICAID, SELFPAY ==
--- NOTE | 2020-06-10 11:05 | MHC.AU.P13 ---
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 She also reports history of vertigo episodes that are accompanied by nausea and right-sided tinnitus. She has tried physical therapy for her vertigo episodes in the past, and did not find that it reduced the frequency or severity. Hearing Handicap Inventory: HHIE SCORE: 18 Based on HHIE score, patient has: Mild to moderate perceived hearing handicap Ear History: Ear Deformity: None Reported Recent Ear Drainage: None Reported Recent Ear Pain: None Reported Family History of Hearing Loss?: Yes: Father Recent Ear Infections: None Reported Ear Infections in Childhood: None Reported History of Ear Wax Buildup: None Reported Previous Ear Surgery: None Reported Bothersome Tinnitus/Ringing/Noises in Ears: Right Ear Ear used on the phone: Right Ear Blocked/Full Sensation in Ear(s): None Reported History of occupational noise exposure?: No History: No Medical History: Medical History: Headache, High Blood Pressure Otoscopy: Right Ear: Unremarkable Left Ear: Unremarkable Tympanometry: Tympanometry performed due to: To assess integrity of the middle ear system Right Ear: Hypercompliant Middle Ear System (Type Ad) Left Ear: Normal Middle Ear System (Type A) Otoacoustic Emissions Frequency Range Used: 1.6-8 kHz Right Ear Results: Present 1-1.6 kHz, sloping down until reduced emissions 6-8 kHz Analysis: Reduced/Absent emissions suggest cochlear dysfunction Left Ear Results: Present 1-1.6 kHz, sloping down until reduced emissions 6-8 kHz Analysis: Reduced/Absent emissions suggest cochlear dysfunction Hearing Evaluation: Transducer(s) Used: Insert Earphones Method: Conventional Audiometry Stimuli Used: Pure Tones Right Ear: Description of Hearing: Overall borderline-normal, with dip to mild sensorineural hearing loss at 8000 Hz Left Ear: Description of Hearing: Overall normal, with dip to mild sensorineural hearing loss at 8000 Hz Speech Recognition Threshold (SRT): Method Used: Recorded Lists Right Ear: 25 dBHL Left Ear: 25 dBHL Word Discrimination: Method: Recorded Lists Word Lists Used: Lista Bisil?bica (Syrian) Right Ear: 92% at 60 dBHL Left Ear: 96% at 60 dBHL Interpretation of Results: At this moment, the right ear thresholds are slightly below the left from 500-2000 Hz. This small difference in thresholds alone is not enough to explain patient's perceived difficulty hearing from the right ear. Given this perceived difference between ears, and the history of vertigo episodes accompanied by right-sided tinnitus and nausea, further medical investigation is warranted. Recommendations: Referral to Ear, Nose, and Throat (ENT) is recommended to address perceived difference between ears (despite only slight difference in thresholds), and vertigo episodes with right-sided tinnitus and nausea. The preference would be for an ENT clinic that offers full vestibular evaluations, including VNG/ENG. Diagnosis: Primary Diagnosis: H90.3 Bilateral Sensorineural Hearing Loss Services Performed: Comprehensive Audiological Evaluation (CPT 05428), Limited Otoacoustic Emissions (CPT 38923), Tympanometry (CPT 57491) Signature: Provider: Maya Rios, CCC-A
== END 2020-06-05 12:55 | disposition home or self-care (01) ==
LOC: HO.SH 12:54
PROVIDERS: Visit Provider Internal Medicine
DX: H90.3 Sensorineural hearing loss, bilateral (principal)
CPT/HCPCS: 92557; 92567; 92587

== ENCOUNTER → 2020-06-19 10:45 | Outpatient (BNVA) | payer MEDICAID, SELFPAY | PROVIDERS: PCP Internal Medicine; Visit Provider Nurse Practitioner ==

== ENCOUNTER 2020-06-20 23:00 | Outpatient (REF) | payer MEDICAID, SELFPAY | END 2020-06-20 23:01 | disposition home or self-care (01) | LOC: HO.LNP 23:00 | PROVIDERS: Visit Provider Nurse Practitioner | DX: Z13.89 Encounter for screening for other disorder (principal) ==

== ENCOUNTER 2020-06-22 09:55 | Outpatient (REF) | payer MEDICAID, SELFPAY ==
[2020-06-22 11:33] LABS: CDIFF Ag Negative (Negative); CDIFF Internal ctrl Dots and bkg OK (V); CDiff Toxin Negative (Negative)
== END 2020-06-22 09:56 | disposition home or self-care (01) ==
LOC: HO.LNP 09:55
PROVIDERS: Visit Provider Nurse Practitioner
DX: R19.7 Diarrhea, unspecified (principal)
CPT/HCPCS: 87045; 87046; 87324; 87338; 87449

== ENCOUNTER → 2020-07-02 14:48 | Outpatient (BNVA) | payer MEDICAID, SELFPAY | PROVIDERS: PCP Internal Medicine; Visit Provider Nurse Practitioner ==

== ENCOUNTER 2020-08-11 10:06 | Outpatient (REF) | payer MEDICAID, SELFPAY ==
--- NOTE | ~2020-08-11 | XR_ITS ---
EXAMINATION: LUMBAR SPINE AND SACROILIAC JOINT. CLINICAL INFORMATION: SI joint pain and lumbago. COMPARISON: Lumbar spine on 1221 TECHNIQUE: Lumbar spine 3 views. SI joints 3 views. FINDINGS: Lumbosacral spine. There is normal lumbar lordosis. There is grade 1 anterolisthesis L5 over S1. Rest of the vertebral alignment is normal. There is loss of L5-S1, T12-L1, T11-T12 disc heights with mild to moderate ventral spondylosis. There is no acute fracture or lytic process. The paravertebral soft tissues are normal. XR/XR lumbar spine 2-3V IMPRESSION: Grade 1 anterolisthesis L5 over S1. There are degenerative disc changes L5-S1 and T12-L1 disc levels.
--- NOTE | ~2020-08-11 | XR_ITS ---
EXAMINATION: LUMBAR SPINE AND SACROILIAC JOINT. CLINICAL INFORMATION: SI joint pain and lumbago. COMPARISON: Lumbar spine on 1221 TECHNIQUE: Lumbar spine 3 views. SI joints 3 views. FINDINGS: Lumbosacral spine. There is normal lumbar lordosis. There is grade 1 anterolisthesis L5 over S1. Rest of the vertebral alignment is normal. There is loss of L5-S1, T12-L1, T11-T12 disc heights with mild to moderate ventral spondylosis. There is no acute fracture or lytic process. The paravertebral soft tissues are normal. XR/XR sacroiliac joint 1-2V IMPRESSION: Grade 1 anterolisthesis L5 over S1. There are degenerative disc changes L5-S1 and T12-L1 disc levels.
== END 2020-08-11 10:07 | disposition home or self-care (01) ==
LOC: HO.XRAY 10:06
PROVIDERS: PCP Internal Medicine; Visit Provider Physical Medicine & Rehabilitation
DX: M54.5 Low back pain (principal)
CPT/HCPCS: 72100; 72200

== ENCOUNTER → 2020-08-17 13:14 | Outpatient (BNVA) | payer MEDICAID, SELFPAY | PROVIDERS: PCP Internal Medicine; Visit Provider Nurse Practitioner ==

== ENCOUNTER 2020-08-31 08:44 | Outpatient (REF) | payer MEDICAID, SELFPAY ==
--- NOTE | ~2020-08-31 | MM_ITS ---
EXAMINATION: MM SCREENING DIGITAL BREAST TOMOSYNTHESIS, BILATERAL CLINICAL INFORMATION: Screening. Asymptomatic. The lifetime risk of breast cancer based on the Tyrer-Cuzick Model is 5.8%. COMPARISON: Mammography: January 10, 2019 TECHNIQUE: Digital breast tomosynthesis is performed in both the craniocaudal and mediolateral oblique views along with computer-aided detection (CAD). Synthesized 2D images are generated from the tomosynthesis. FINDINGS: There are scattered areas of fibroglandular density (ACR BI-RADS breast composition Category b). There are no significant masses, abnormal calcifications, or other abnormalities. MM/MM tomosynthesis screening BI IMPRESSION: There are no significant changes from prior study. ASSESSMENT: BI-RADS 1: Negative RECOMMENDATION: Routine annual mammography screening. This patient's information was entered into a reminder system with a target due date for their next mammogram.
== END 2020-08-31 08:45 | disposition home or self-care (01) ==
LOC: HO.MAMMO 08:44
PROVIDERS: Visit Provider Internal Medicine
DX: Z12.31 Encounter for screening mammogram for malignant neoplasm of breast (principal)
CPT/HCPCS: 77063; 77067

== ENCOUNTER 2020-08-31 12:17 | Outpatient (REF) | payer MEDICAID, SELFPAY ==
[2020-08-31 13:02] LABS: COVID-19 Test Negative (Negative)
== END 2020-08-31 12:18 | disposition home or self-care (01) ==
LOC: HO.LAB 12:17
PROVIDERS: Visit Provider Internal Medicine
DX: Z20.822 Contact with and (suspected) exposure to COVID-19 (principal)
CPT/HCPCS: 36415; 87635; C9803

== ENCOUNTER 2020-10-07 09:52 | Day surgery (SDC) | payer MEDICAID, SELFPAY ==
--- NOTE | 2020-10-06 10:09 | HO.ANESPROP2 ---
HPI - Anesthesia Eval Consult details Narrative: 55yo F for Colonoscopy PMFSH Active Problems Active Problems: All Active Problems (Updated 08/17/20 @ 14:13 by ROMMEL Hart) Colon cancer screening (Acute) Abdominal cramping (Acute) Abdominal cramping (Acute) Acute diarrhea (Acute) Primary osteoarthritis of knees, bilateral (Acute) Rotator cuff impingement syndrome of right shoulder (Acute) Rotator cuff impingement syndrome of left shoulder (Acute) Primary osteoarthritis of right knee (Acute) Hidradenitis suppurativa (Acute) Well woman exam with routine gynecological exam (Acute) Morbid obesity (Acute) Subcutaneous abscess (Acute) Cellulitis (Acute) Past Medical History Medical History Arthritis Fibromyalgia Hypertension Morbid obesity Osteoarthritis Primary osteoarthritis of knees, bilateral Subcutaneous abscess Family History Family History Father Stomach cancer Brother Stomach problems Surgical History Surgical History History of cholecystectomy (~2019) Social History Social History Household Members: Family Housing: Apartment Do you presently have visiting nurse or other home services: No Alcohol intake: current Alcohol intake frequency: holidays/special occasions only Patient Tobacco Use Status: Former Tobacco user Second Hand Smoke Exposure: No service: No Current occupational status: unemployed Meds Allergies Allergy/AdvReac Type Severity Reaction Status Date / Time No Known Allergies Allergy Verified 08/17/20 13:15 [No Known Allergies*] Home Medications Medication Instructions Recorded Confirmed Last Taken Type amlodipine 10 mg PO DAILY 01/23/20 10/01/20 01/22/20 08:00 History aspirin 81 mg PO DAILY 01/23/20 10/01/20 01/22/20 08:00 History citalopram [Celexa] 20 mg PO DAILY 01/23/20 01/23/20 01/22/20 08:00 History clonazepam 0.5 mg PO BEDTIME 01/23/20 10/01/20 01/21/20 21:00 History diclofenac sodium 75 mg PO BID 01/23/20 01/23/20 01/22/20 08:00 History duloxetine 60 mg PO DAILY 01/23/20 10/01/20 01/22/20 08:00 History gabapentin 400 mg PO DAILY 01/23/20 10/01/20 01/22/20 08:00 History losartan-hydrochlorothiazide 1 tab PO DAILY 01/23/20 10/01/20 01/22/20 08:00 History tramadol 50 mg PO DAILY 01/23/20 10/01/20 01/22/20 08:00 History loperamide 2 mg tablet 2 mg PO Q6H PRN 06/19/20 10/01/20 Unknown History topiramate 25 mg tablet 25 mg PO DAILY 07/02/20 10/01/20 Unknown History Exam Exam Date and Time: October 06, 2020 1009 Narrative Narrative: EKG 05/2020 Vent. Rate : 066 BPM Atrial Rate : 066 BPM P-R Int : 168 ms QRS Dur : 092 ms QT Int : 422 ms P-R-T Axes : 035 015 010 degrees QTc Int : 442 ms Normal sinus rhythm Normal ECG No previous ECGs available Assessment and Plan Assessment Anesthesia Assessment: Chart Reviewed
[2020-10-07 10:12] VITALS: BP 132/67; PULSE 79; RESP 18; TEMP 36.6; O2SAT 97
--- NOTE | 2020-10-07 10:15 | HO.ANESPROP2 ---
[facility] Active Problems Active Problems: All Active Problems (Updated 10/06/20 @ 10:10 by Garima Andres) Colon cancer screening (Acute) Abdominal cramping (Acute) Abdominal cramping (Acute) Acute diarrhea (Acute) Rotator cuff impingement syndrome of right shoulder (Acute) Rotator cuff impingement syndrome of left shoulder (Acute) Primary osteoarthritis of right knee (Acute) Hidradenitis suppurativa (Acute) Well woman exam with routine gynecological exam (Acute) Subcutaneous abscess (Acute) Cellulitis (Acute) Past Medical History Medical History Arthritis Fibromyalgia Hypertension Morbid obesity Osteoarthritis Primary osteoarthritis of knees, bilateral Subcutaneous abscess Family History Family History Father Stomach cancer Brother Stomach problems Surgical History Surgical History History of cholecystectomy (~2018) Social History Social History Household Members: Family Housing: Apartment Do you presently have visiting nurse or other home services: No Alcohol intake: current Alcohol intake frequency: holidays/special occasions only Second Hand Smoke Exposure: No Advance Directives: No Advance Directives Information Provided: Yes service: No Current occupational status: unemployed Meds Allergies Allergy/AdvReac Type Severity Reaction Status Date / Time No Known Allergies Allergy Verified 08/17/20 13:15 [No Known Allergies*] Active Medications: Current Medications Generic Name Dose Route Start Last Admin Trade Name Cyndy PRN Reason Stop Dose Admin Lactated Ringer's 1,000 mls @ 100 mls/hr 10/07/20 10:15 Lr IVCONT .Q10H [facility] Home Medications Medication Instructions Recorded Confirmed Last Taken Type amlodipine 10 mg PO DAILY 01/23/20 10/01/20 01/22/20 08:00 History aspirin 81 mg PO DAILY 01/23/20 10/01/20 01/22/20 08:00 History citalopram [Celexa] 20 mg PO DAILY 01/23/20 01/23/20 01/22/20 08:00 History clonazepam 0.5 mg PO BEDTIME 01/23/20 10/01/20 01/21/20 21:00 History diclofenac sodium 75 mg PO BID 01/23/20 01/23/20 01/22/20 08:00 History duloxetine 60 mg PO DAILY 01/23/20 10/01/20 01/22/20 08:00 History gabapentin 400 mg PO DAILY 01/23/20 10/01/20 01/22/20 08:00 History losartan-hydrochlorothiazide 1 tab PO DAILY 01/23/20 10/01/20 01/22/20 08:00 History tramadol 50 mg PO DAILY 01/23/20 10/01/20 01/22/20 08:00 History loperamide 2 mg tablet 2 mg PO Q6H PRN 06/19/20 10/01/20 Unknown History topiramate 25 mg tablet 25 mg PO DAILY 07/02/20 10/01/20 Unknown History Exam Exam Date and Time: October 07, 2020 1015 Height,Weight and Vital Signs: Last Vital Signs Temp 97.9 F 10/07/20 10:12 Pulse 79 10/07/20 10:12 Resp 18 10/07/20 10:12 BP 132/67 10/07/20 10:12 Pulse Ox 97 10/07/20 10:12 Airway Mallampati Class: II TM Dist: >3cm Neck ROM: Full Heart: RRR Lungs: CTA
[2020-10-07 10:28] VITALS: BMI 84.6
[2020-10-07] MEDS: Lactated Ringers 1,000 ML 100 ML IVCONT (10:42)
--- NOTE | 2020-10-07 10:50 | MHC.SHP ---
Pre-Procedural Eval Section A Date of Service: 10/07/20 Section B Chief Complaint: abdominal pain Relevant Family History (Specify if Yes): No Relevant Social History: None Present Medications: see Short Stay Collaborative assessment Medical History: Significant History (Arthritis Fibromyalgia Hypertension Morbid obesity Osteoarthritis Primary osteoarthritis of knees, bilateral Subcutaneous abscess) History of Previous Operations: Relevant previous surgery/procedure and date(s) (cholecystectomy) Allergies: Allergies Allergy/AdvReac Type Severity Reaction Status Date / Time No Known Allergies Allergy Verified 08/17/20 13:15 [No Known Allergies*] Review of Systems Sugical H&P ROS: Negative: Constitution, Cardiovascular, Respiratory, Neurological, Psychiatric, Hem-Onc, Allergic/Immunologic, Gastrointestinal, Genitourinary, Musculoskeletal, Integumentary, Endocrine and Eyes/Ears/Nose/Throat Exam Surgical H&P Exam: Normal: HEENT, Normal: Heart, Normal: Lungs, Normal: Extremities, Normal: Abdomen, Normal: Skin and Normal: Neurological Plan Diagnosis/Plan: Unchanged I have reviewed the history and physical and performed a pertinent physical examination on my patient. No changes have occurred unless specified.
--- NOTE | 2020-10-07 10:52 | P.BOP_ITS ---
Brief Operative Note Date of Service: 10/07/20 Pre-op diagnosis: hx of abdominal pain but improved now Post-op diagnosis: same Procedure: see op note Surgeon: Eladio Heath MD Anesthesia: MAC Was an Product Applications Scientist used for this Procedure?: No Estimated blood loss (mL): 0 Condition: stable Disposition: PACU
--- NOTE | 2020-10-07 10:52 | P.OP_ITS ---
Operative Note Operative Note Date of Service: 10/07/20 Narrative: Operative Information Procedure Description: Colonoscopy COLONOSCOPY Instrument: Olympus variable stiffness pediatric scope 190L Colonoscopy Monitoring: Vital signs and clinical assessment, continuous EKG monitoring, Pulse oximetry, Carbon Dioxide monitoring and blood pressure monitoring were done throughout the procedure. Colon withdrawal time was 14 minutes. Procedure: The patient was placed in the left lateral decubitis position and pre-procedure medications were administered. After a digital rectal examination of the ano-rectum, the video colonoscope was inserted into the rectum and advanced through the colon to the cecum/TI. The colonoscope was slowly withdrawn in a retrograde panoramic fashion and the colon mucosa was carefully examined including a retroflexed view of the rectum. Findings and interventions are described below. Procedure Difficulty:easy Findings: Terminal Ileum-normal, bx taken random colon bx taken Cecum:normal Ascending Colon: normal Transverse Colon -10-12 sessile polyp removed in one piece with cold snare Descending Colon:normal Sigmoid Colon: moderate severe diverticulosis with mycosis and thickening of mucosa Rectum: Retroflexion with small internal hemorrhoids, grade I Anorectum - normal Colon preparation: [place] Bowel Preparation Scale Right colon; 2 Transverse colon: 2 Left colon; 2 (0 = Unprepared colon segment with mucosa not seen due to solid stool that cannot be cleared. 1 = Portion of mucosa of the colon segment seen, but other areas of the colon segment not well seen due to staining, residual stool and/or opaque liquid. 2 = Minor amount of residual staining, small fragments of stool and/or opaque liquid, but mucosa of colon segment seen well. 3 = Entire mucosa of colon segment seen well with no residual staining, small fragments of stool or opaque liquid) Impression and Post Procedure Diagnosis: polyps internal hemorrhoids diverticular disease Plan: High fiber diet leaflet Avoid straining at stool, epsom salts and sitz bath, anusol supps or cream Repeat Colonoscopy in 5 years or earlier if clinically indicated Above findings were reviewed with the patient and relevant handouts were provided if indicated.
[2020-10-07 11:35] VITALS: BP 98/55; PULSE 86; RESP 16; TEMP 36.2; O2SAT 98
[2020-10-07 11:50] VITALS: BP 104/64; PULSE 84; RESP 18; O2SAT 99
[2020-10-07 12:05] VITALS: BP 115/69; PULSE 66; RESP 20; O2SAT 99
[2020-10-07 12:31] VITALS: BP 124/69; PULSE 86; RESP 18; TEMP 36.4; O2SAT 97
== END 2020-10-07 12:45 | disposition home or self-care (01) ==
PROVIDERS: PCP Internal Medicine; Visit Provider Internal Medicine Gastroenterology
PROC: 0DJD8ZZ Inspection of Lower Intestinal Tract, Via Natural or Artificial Opening Endoscopic (ICD-10-PCS; CPT 45378; principal; 2020-10-07 10:50)
DX: Z12.11 Encounter for screening for malignant neoplasm of colon (principal); D12.3 Benign neoplasm of transverse colon; K57.30 Diverticulosis of large intestine without perforation or abscess without bleeding; K64.0 First degree hemorrhoids; K52.9 Noninfective gastroenteritis and colitis, unspecified; Z80.0 Family history of malignant neoplasm of digestive organs; I10 Essential (primary) hypertension; E66.01 Morbid (severe) obesity due to excess calories; M79.7 Fibromyalgia; M17.0 Bilateral primary osteoarthritis of knee; Z90.49 Acquired absence of other specified parts of digestive tract; Z79.82 Long term (current) use of aspirin; Z79.899 Other long term (current) drug therapy; Z87.891 Personal history of nicotine dependence
CPT/HCPCS: 45385; 45380; 88305

== ENCOUNTER → 2020-10-20 13:38 | Outpatient (BNVA) | payer MEDICAID, SELFPAY | PROVIDERS: PCP Internal Medicine; Visit Provider Orthopaedic Surgery | DX: M17.11 Unilateral primary osteoarthritis, right knee (principal) | CPT/HCPCS: 20610; 99212; J1040 ==

== ENCOUNTER 2020-10-22 15:58 | Emergency (ER) | payer MEDICAID, SELFPAY ==
--- NOTE | ~2020-10-22 | XR_ITS ---
EXAMINATION: XR FOOT, LEFT CLINICAL INFORMATION: Pain. COMPARISON: None TECHNIQUE: AP, lateral, and oblique views of the left foot. FINDINGS: There is no visible acute fracture or dislocation. There is mild loss of joint space with sclerosis along the lateral calcaneal- cuboid and talonavicular joints likely degenerative arthritis. Mild subchondral cystic changes are seen along the talus bone. There is a moderate size calcaneal spur. There is pes planus deformity of the foot. The ankle mortise and subtalar joints are preserved. XR/XR foot LT 2V IMPRESSION: Pes planus deformity left foot. No visible acute fracture or dislocation seen. Mild degenerative changes calcaneocuboid and talonavicular joint.
[2020-10-22 16:13] VITALS: BP 142/63; PULSE 78; RESP 18; TEMP 36.3; O2SAT 96; BMI 37.9
--- NOTE | 2020-10-22 17:37 | ED_ITS ---
HPI - General Adult General Chief complaint: Extremity Injury, Lower Stated complaint: Left foot pain Time Seen by Provider: 10/22/20 17:37 Source: patient Limitations: no limitations History of Present Illness HPI narrative: Patient presents to the ER complaining of left foot pain. Patient states a hover board fell on her left foot. Patient has longstanding chronic pain in the low left foot which is seen by Podiatry for. Patient has a known arch deformity. And has plans for follow-up operation. Patient denies any other complaints at this time. Pain is 6/10 increases with weight-bearing and range of motion. Symptoms are [id number]. Patient has history of osteoarthritis hypertension fibromyalgia. Related Data Home Medications Medication Instructions Recorded Confirmed amlodipine 10 mg PO DAILY 01/23/20 10/01/20 aspirin 81 mg PO DAILY 01/23/20 10/01/20 citalopram [Celexa] 20 mg PO DAILY 01/23/20 01/23/20 clonazepam 0.5 mg PO BEDTIME 01/23/20 10/01/20 diclofenac sodium 75 mg PO BID 01/23/20 01/23/20 duloxetine 60 mg PO DAILY 01/23/20 10/01/20 gabapentin 400 mg PO DAILY 01/23/20 10/01/20 losartan-hydrochlorothiazide 1 tab PO DAILY 01/23/20 10/01/20 tramadol 50 mg PO DAILY 01/23/20 10/01/20 loperamide 2 mg tablet 2 mg PO Q6H PRN 06/19/20 10/01/20 topiramate 25 mg tablet 25 mg PO DAILY 07/02/20 10/01/20 Previous Rx's Medication Instructions Recorded doxycycline hyclate 100 mg PO Q12H #19 tab 01/26/20 cyclobenzaprine 10 mg PO TID PRN #15 tab 03/07/20 lidocaine [Lidoderm] 1 patch TOPICAL DAILY #15 ea 03/07/20 bisacodyl 5 mg tablet,delayed 10 mg PO BEDTIME 2 Days #4 tab 08/17/20 release peg 3350-electrolytes 236 240 ml PO Q10M 1 Days #4000 ml 08/17/20 gram-22.74 gram-6.74 gram-5.86 gram solution dicyclomine 20 mg tablet 20 mg PO TID #90 tab 09/29/20 oxycodone-acetaminophen [Percocet] 1 tab PO Q8H PRN #7 tab 10/22/20 Allergies Allergy/AdvReac Type Severity Reaction Status Date / Time No Known Allergies Allergy Verified 08/17/20 13:15 [No Known Allergies*] Review of Systems Constitutional: Constitutional: Denies chills, Denies fever(s) and Denies headache(s) ENT: Denies headache(s) Cardiovascular: Cardiovascular: Denies chest pain and Denies dyspnea Respiratory: Respiratory: Denies cough and Denies dyspnea Gastrointestinal: Gastrointestinal: Denies diarrhea, Denies nausea and Denies vomiting Musculoskeletal: Musculoskeletal: Reports arthralgias and Reports joint swelling Comments: Left foot pain Integumentary/Breasts: Skin/Breast: Reports system reviewed and no additional complaints, except as docu Neurologic: Denies confusion and Denies headache(s) Psychiatric: Psychiatric: Reports no additional psychiatric complaints and Denies confusion Hematologic/Lymphatic: Hematologic/Lymphatic: Reports no additional hematologic/lymphatic complaints PMFSH Past Medical History Attestation statement: The following information was validated with the patient. Medical History Arthritis Fibromyalgia Hypertension Morbid obesity Osteoarthritis Primary osteoarthritis of knees, bilateral Subcutaneous abscess Surgical History History of cholecystectomy (~2019) Family History Family History Father Stomach cancer Brother Stomach problems Social History Social History Household Members: Family Housing: Apartment Do you presently have visiting nurse or other home services: No Alcohol intake: never Patient Tobacco Use Status: Former Tobacco user Second Hand Smoke Exposure: No Use of substances other than those prescribed or required for medical reasons: No Advance Directives: No Advance Directives Information Provided: No Patient : No service: No Current occupational status: unemployed Physical Exam Vital Signs: Vital Signs: Last Vital Signs Temp 97.4 F 10/22/20 16:13 Pulse 78 10/22/20 16:13 Resp 18 10/22/20 16:13 BP 142/63 H 10/22/20 16:13 Pulse Ox 96 10/22/20 16:13 Body Mass Index 37.9 Const: General: No confusion Orientation/consciousness: No confusion Neuro: General: No confusion Course Course Course Narrative: Left foot contusion Fracture Sprain Symptoms are consistent with muscle skeletal pain patient has a known Pes planus deformity left foot and she is followed by Podiatry for that. Sharrit Reviewed recent prescription for tramadol and other muscle relaxers will not give prescription for oxycodone at this time Medical Decision Making Imaging Data foot: Radiologist's impression: [address] [id number] ReportSigned Patient: Chelsi Connors DMR#: [id number]: [id number]:[id number]/Sex: 55 / FADM Date: 10/22/20Loc: EDAttending Dr: Ordering Physician: Generic ED Physician Date of Service: 10/22/20 Procedure(s): XR foot LT 2V Accession Number(s): [id number] cc: Generic ED Physician~ EXAMINATION: XR FOOT, LEFT CLINICAL INFORMATION: Pain. COMPARISON: None TECHNIQUE: AP, lateral, and oblique views of the left foot. FINDINGS: There is no visible acute fracture or dislocation. There is mild loss of joint space with sclerosis along the lateral calcaneal- cuboid and talonavicular joints likely degenerative arthritis. Mild subchondral cystic changes are seen along the talus bone. There is a moderate size calcaneal spur. There is pes planus deformity of the foot. The ankle mortise and subtalar joints are preserved. XR/XR foot LT 2V IMPRESSION: Pes planus deformity left foot. No visible acute fracture or dislocation seen. Mild degenerative changes calcaneocuboid and talonavicular joint. Dictated By:MARYSOL TOMPKINS MDSigned By:<Electronically signed by MARYSOL TOMPKINS MD in OV>10/22/20 1714 DD/ 1620TD/TT: Entry Level Assistant Manager: [facility] Discharge Plan Discharge Clinical Impression: Contusion of foot, left Patient Disposition: Home, Self-Care Instructions: Foot Contusion (ED) Additional Instructions: Follow-up with your telephone maintainer as directed Continue your current pain medication at home such as tramadol and muscle relaxers. Prescriptions: New oxycodone-acetaminophen [Percocet] 5-325 mg tablet 1 tab PO Q8H PRN (Reason: pain) Qty: 7 RF: 0 No Action dicyclomine 20 mg tablet 20 mg PO TID Qty: 90 RF: 1 clonazepam 0.5 mg Tablet 0.5 mg PO BEDTIME RF: 0 citalopram [Celexa] 20 mg Tablet 20 mg PO DAILY RF: 0 gabapentin 400 mg Capsule 400 mg PO DAILY RF: 0 tramadol 50 mg Tablet 50 mg PO DAILY RF: 0 losartan-hydrochlorothiazide 100-25 mg Tablet 1 tab PO DAILY RF: 0 amlodipine 10 mg Tablet 10 mg PO DAILY RF: 0 diclofenac sodium 75 mg Tablet,Delayed Release (Dr/Ec) 75 mg PO BID RF: 0 Hold Instructions: Resume on 03/14/20. while you are taking Naproxen aspirin 81 mg Tablet 81 mg PO DAILY RF: 0 duloxetine 60 mg Capsule,Delayed Release(Dr/Ec) 60 mg PO DAILY RF: 0 doxycycline hyclate 100 mg Tablet 100 mg PO Q12H Qty: 19 RF: 0 cyclobenzaprine 10 mg tablet 10 mg PO TID PRN (Reason: muscle spasm) Qty: 15 RF: 0 lidocaine [Lidoderm] 5 % adhesive patch,medicated 1 patch topical DAILY Qty: 15 RF: 0 loperamide [Imodium A-D] 2 mg tablet 2 mg PO Q6H PRN (Reason: Diarrhea) RF: 0 topiramate [Topamax] 25 mg tablet 25 mg PO DAILY RF: 0 bisacodyl [Dulcolax (bisacodyl)] 5 mg tablet,delayed release (DR/EC) 10 mg PO BEDTIME 2 Days Qty: 4 RF: 0 peg 3350-electrolytes [Golytely] 236-22.74-6.74 -5.86 gram recon soln 240 ml PO Q10M 1 Days Qty: 4000 RF: 0
== END 2020-10-22 18:38 | disposition home or self-care (01) ==
PROVIDERS: Emergency Provider Internal Medicine; PCP Internal Medicine
DX: S90.32XA Contusion of left foot, initial encounter (principal); I10 Essential (primary) hypertension; M79.7 Fibromyalgia; Z79.82 Long term (current) use of aspirin; Z79.899 Other long term (current) drug therapy; W20.8XXA Other cause of strike by thrown, projected or falling object, initial encounter; Y93.9 Activity, unspecified; Y92.9 Unspecified place or not applicable; Y99.9 Unspecified external cause status
CPT/HCPCS: 73620; 99283

== ENCOUNTER 2021-02-02 09:01 | Outpatient (REF) | payer MEDICAID, SELFPAY ==
[2021-02-02 12:45] LABS: C Reactive Protein 2.26 mg/dL (< or = 0.50)
[2021-02-04 16:11] LABS: Transglutaminase Ab IgG <1.0 U/mL; Transglutaminase IgA <1.0 U/mL
[2021-02-04 16:15] LABS: Gliadin Deamidated IgA Ab 3.5 U/mL; Gliadin Deamidated IgG Ab <1.0 U/mL
[2021-02-10 12:50] LABS: Prometheus IBD SGI SEE SEPARATE REPORT
== END 2021-02-02 09:02 | disposition home or self-care (01) ==
LOC: HO.LAB 09:01
PROVIDERS: PCP Internal Medicine; Referring Provider Internal Medicine; Visit Provider Nurse Practitioner
DX: D23.5 Other benign neoplasm of skin of trunk (principal); K58.0 Irritable bowel syndrome with diarrhea; R14.0 Abdominal distension (gaseous); D12.6 Benign neoplasm of colon, unspecified; R10.9 Unspecified abdominal pain; Z79.899 Other long term (current) drug therapy; Z12.11 Encounter for screening for malignant neoplasm of colon
CPT/HCPCS: 36415; 81479; 82397; 83516; 83520; 86140; 88346; 88350; 99212

== ENCOUNTER 2021-02-02 11:10 | Outpatient (REF) | payer MEDICAID, SELFPAY | END 2021-02-02 11:11 | disposition home or self-care (01) | LOC: HO.LAB 11:10 | PROVIDERS: PCP Internal Medicine; Visit Provider Internal Medicine | DX: Z20.822 Contact with and (suspected) exposure to COVID-19 (principal) | CPT/HCPCS: C9803; U0003; U0005 ==

== ENCOUNTER → 2021-07-05 11:32 | Outpatient (BNVA) | payer MEDICARE, MEDICAID, SELFPAY | PROVIDERS: PCP Internal Medicine; Visit Provider Orthopaedic Surgery | DX: M17.11 Unilateral primary osteoarthritis, right knee (principal) | CPT/HCPCS: 20610; 99212; J1100 ==

== ENCOUNTER 2021-08-05 10:54 | Outpatient (REF) | payer OTHER, SELFPAY ==
[2021-08-05 11:48] LABS: MANUAL DIFF FLAG NO
[2021-08-05 12:38] LABS: Basophils Percent Auto 0.4 % (0-2); Eosinophils Absolute Auto 0.2 X10*3/uL (0.0-0.4); Eosinophils Percent Auto 2.2 % (0-4); Hematocrit 39.8 % (37.0-47.0); Hemoglobin 12.7 g/dl (12.0-16.0); Imm Gran Abs Auto 0.02 X10*3/uL (0.00-0.03); Imm Gran Pct Auto 0.3 % (0.0-0.4); Lymphocytes Percent Auto 25.7 % (20-40); Mean Corpuscular HGB Conc 31.9 g/dl (31.0-35.0); Mean Corpuscular Hemoglobin 28.5 pg (27.0-33.0); Mean Corpuscular Volume 89.2 fL (80.0-98.0); Monocytes Absolute Auto 0.6 X10*3/uL (0.1-1.2); Monocytes Percent Auto 7.9 % (2-11); Neutrophils Absolute Auto 4.9 x10*3/uL (2.0-8.3); Neutrophils Percent Auto 63.5 % (45-73); Platelet Count 289 X10*3/uL (160-400); Red Blood Count 4.46 X10*6/uL (4.20-5.50); Red Cell Distribution Width 13.2 % (11.0-16.0); White Blood Count 7.6 X10*3/uL (4.8-10.8)
[2021-08-05 13:10] LABS: Alanine Aminotransferase 35 U/L (0-31); Albumin Level 3.9 g/dL (3.5-5.0); Alkaline Phosphatase 119 U/L (39-117); Anion Gap 12 (12-20); Aspartate Amino Transferase 24 U/L (5-31); Bilirubin Total 0.3 mg/dL (0.0-1.0); Blood Urea Nitrogen 13 mg/dL (9-16); C Reactive Protein 4.08 mg/dL (< or = 0.50); Calcium 9.2 mg/dL (8.4-10.2); Carbon Dioxide 31 mmol/L (22-29); Chloride 99 mmol/L (96-108); Estimated Glomerular Filt Rate > 60; Glucose Random 120 mg/dL (60-115); Potassium 3.9 mmol/L (3.3-5.1); Sodium 138 mmol/L (135-145); Total Protein 6.8 g/dL (6.5-8.0)
== END 2021-08-05 10:55 | disposition home or self-care (01) ==
LOC: HO.LAB 10:54
PROVIDERS: PCP Internal Medicine; Referring Provider Internal Medicine; Visit Provider Nurse Practitioner
DX: R10.13 Epigastric pain (principal); K52.9 Noninfective gastroenteritis and colitis, unspecified; R14.0 Abdominal distension (gaseous); K21.9 Gastro-esophageal reflux disease without esophagitis; D12.6 Benign neoplasm of colon, unspecified
CPT/HCPCS: 36415; 80053; 81479; 82397; 83520; 85025; 86140; 88346; 88350; 99212

== ENCOUNTER 2021-08-13 09:07 | Outpatient (REF) | payer OTHER, SELFPAY ==
--- NOTE | ~2021-08-13 | XR_ITS ---
EXAMINATION: XR LUMBOSACRAL SPINE WITH OBLIQUES CLINICAL INFORMATION: Lumbar spondylosis. COMPARISON: None TECHNIQUE: AP, both oblique, and lateral views of the lumbar spine. Lateral view of the lumbosacral junction. FINDINGS: There is normal lumbar lordosis. There is grade 1 anterolisthesis L4 over L5 and L5 over S1. Rest of the vertebral alignment is normal. There is loss of L5-S1 disc height. Rest of the disc heights are normal. There is moderate ventral and lateral spondylosis lower dorsal spine. No visible acute fracture or dislocation seen. XR/XR lumbar spine 6V w bending IMPRESSION: Grade 1 anterolisthesis L4 over L5 and L5 over S1 with mild degenerative disc changes.
== END 2021-08-13 09:08 | disposition home or self-care (01) ==
LOC: HO.XRAY 09:07
PROVIDERS: PCP Internal Medicine; Visit Provider Neurological Surgery
DX: M47.816 Spondylosis without myelopathy or radiculopathy, lumbar region (principal)
CPT/HCPCS: 72114

== ENCOUNTER 2021-09-02 08:58 | Outpatient (REF) | payer OTHER, SELFPAY ==
--- NOTE | ~2021-09-02 | MM_ITS ---
EXAMINATION: MM SCREENING DIGITAL BREAST TOMOSYNTHESIS, BILATERAL CLINICAL INFORMATION: Screening. Asymptomatic. The lifetime risk of breast cancer based on the Tyrer-Cuzick Model is 5.4%. COMPARISON: Mammography: 08/31/2020 and 01/10/2019. TECHNIQUE: Digital breast tomosynthesis is performed in both the craniocaudal and mediolateral oblique views along with computer-aided detection (CAD). Synthesized 2D images are generated from the tomosynthesis. FINDINGS: There are scattered areas of fibroglandular density (ACR BI-RADS breast composition Category b). There is a stable parenchymal pattern of the right breast without new abnormal dominant mass or suspicious grouping of microcalcifications. About the deep medial aspect of the left breast, there is an asymmetric density present which is more prominent than on prior studies and for which spot compression view is recommended. This may represent superimposition of fibroglandular tissue. MM/MM tomosynthesis screening BI IMPRESSION: Left breast asymmetric density for further evaluation. ASSESSMENT: BI-RADS 0: Incomplete - Need Additional Imaging Evaluation RECOMMENDATION: 1. Additional views of the left breast. 2. Targeted ultrasound if warranted after review of the additional views. 3. Radiology department staff will contact the patient for additional imaging. This patient's information was entered into a reminder system with a target due date for their next mammogram.
== END 2021-09-02 08:59 | disposition home or self-care (01) ==
LOC: HO.MAMMO 08:58
PROVIDERS: PCP Internal Medicine; Visit Provider Internal Medicine
DX: Z12.31 Encounter for screening mammogram for malignant neoplasm of breast (principal)
CPT/HCPCS: 77063; 77067

== ENCOUNTER 2021-09-23 07:52 | Outpatient (REF) | payer OTHER, SELFPAY ==
--- NOTE | ~2021-09-23 | MM_ITS ---
EXAMINATION: MM DIAGNOSTIC DIGITAL BREAST TOMOSYNTHESIS, LEFT CLINICAL INFORMATION: Recall from screening for question of asymmetric density medial left breast on CC view. COMPARISON: Mammography: 09/02/2021, 08/31/2020, 01/10/2019 (new baseline). TECHNIQUE: Digital breast tomosynthesis is performed. 2D images are generated from the tomosynthesis. The following views are obtained: Spot CC, rolled CC x2. FINDINGS: There are scattered areas of fibroglandular density (ACR BI-RADS breast composition Category b). Additional views show no developing density, persistent asymmetric density, or architectural abnormality. No significant changes from prior studies. Results are discussed with the patient at time of visit, using an nurse practitioner physician assistant. MM/MM tomosynthesis added views L IMPRESSION: No significant changes from prior studies. ASSESSMENT: BI-RADS 1: Negative RECOMMENDATION: Routine annual mammography screening. This patient's information was entered into a reminder system with a target due date for their next mammogram.
== END 2021-09-23 07:53 | disposition home or self-care (01) ==
LOC: HO.MAMMO 07:52
PROVIDERS: Visit Provider Internal Medicine
DX: R92.2 Inconclusive mammogram (principal)
CPT/HCPCS: 77061; 77065

== ENCOUNTER → 2021-10-07 11:17 | Outpatient (BNVA) | payer OTHER, SELFPAY | PROVIDERS: PCP Internal Medicine; Visit Provider Orthopaedic Surgery | DX: M17.11 Unilateral primary osteoarthritis, right knee (principal) | CPT/HCPCS: 20610; 99212; J1100 ==

== ENCOUNTER 2021-12-22 06:40 | Emergency (ER) | payer OTHER, SELFPAY ==
--- NOTE | ~2021-12-22 | CT_ITS ---
EXAMINATION: CT ANGIOGRAM OF THE CHEST WITH AND WITHOUT CONTRAST (CT PULMONARY ANGIOGRAM FOR PE) CLINICAL INFORMATION: Right-sided pleuritic chest pain. COMPARISON: Chest radiograph from earlier today. TECHNIQUE: Prior to contrast administration, noncontrast localization images were obtained. Subsequently, multidetector volumetric imaging was performed from the thoracic inlet to below the diaphragms following the administration of 65 mL Omnipaque 350 intravenous contrast. No contrast reaction reported Sagittal, coronal, and MIP oblique sagittal reformatted images were obtained on the CT workstation, uploaded to PACS, and reviewed. This CT examination was performed using dose optimization techniques as appropriate, variously including the following: *Automated exposure control *Adjustment of mA and/or kV according to patient size (this includes techniques or standardized protocols for targeted exams where dose is matched to indication/reason for exam; i.e. extremities or head) *Use of iterative reconstruction technique Total exam dose-length product 465 mGy-cm FINDINGS: QUALITY OF STUDY/CONTRAST BOLUS: Suboptimal. PULMONARY ARTERIES: Evaluation is limited secondary to motion and suboptimal timing of the intravenous contrast as attenuation achieved in the pulmonary arteries is similar to the attenuation achieved in the thoracic aorta. However, accounting for these limitations, no definite central pulmonary emboli is noted. Evaluation of segmental branches is very limited and essentially nondiagnostic. THORACIC AORTA: No aneurysm. Limited evaluation of subtle luminal abnormality such as dissection due to motion. Atherosclerotic disease. LUNG: Evaluation of parenchymal details and small pulmonary nodules is very degraded due to respiratory motion. No pulmonary mass noted. No focal consolidation or significant groundglass disease. The central airways are grossly patent. There are subsegmental atelectasis in the posterior lower lobes. PLEURA: No pleural effusion or pneumothorax. MEDIASTINUM: Cardiomegaly. No pericardial effusion. Coronary artery calcifications are noted. No evidence of septal bowing or right heart strain. There is no bulky mediastinal or hilar lymphadenopathy. CHEST WALL/AXILLA: No axillary or internal mammary lymphadenopathy by size criteria. No chest wall mass. OSSEOUS STRUCTURES: No acute or suspicious osseous abnormality. Thoracic spondylosis. UPPER ABDOMEN: Decreased attenuation of the liver parenchyma suggesting hepatic steatosis. Cholecystectomy. No reflux of contrast into the hepatic veins to suggest elevated right heart pressures. CT/CT angio chest PE protocol IMPRESSION: Limited examination secondary to respiratory motion and suboptimal timing of intravenous contrast. No gross central pulmonary emboli noted. Evaluation of segmental branches is very limited. No findings to indicate increased right-sided heart pressure. Cardiomegaly with coronary artery calcifications. No suspicious pulmonary mass. Evaluation of small bowel pulmonary nodules is very limited due to motion. VTE: indeterminate
--- NOTE | ~2021-12-22 | US_ITS ---
EXAMINATION: US VENOUS ULTRASOUND WITH DOPPLER LOWER EXTREMITY, BILATERAL CLINICAL INFORMATION: Bilateral lower extremity pain. COMPARISON: None TECHNIQUE: Ultrasound of the deep veins is performed from the hip to the calf with compression sonography and color and pulse Doppler assessment. Spectral analysis with color-flow imaging is performed. FINDINGS: RIGHT: There is normal venous compression and respiratory variation and augmented flow. The visualized common femoral vein, superficial femoral vein, profunda femoral vein, popliteal vein, and the trifurcation region shows no evidence of deep venous thrombosis. Right popliteal cyst measures 5.0 x 1.7 x 4.0 cm The subcutaneous soft tissues are unremarkable. LEFT: There is normal venous compression and respiratory variation and augmented flow. The visualized common femoral vein, superficial femoral vein, profunda femoral vein, popliteal vein, and the trifurcation region shows no evidence of deep venous thrombosis. No popliteal cyst. The subcutaneous soft tissues are unremarkable. If the patient's symptoms persist, followup ultrasound in 5 days 7 days might be of value to exclude proximal propagation from a non-visualized calf vein. US/US venous duplex LE BI IMPRESSION: 1. No evidence for deep venous thrombosis in the visualized veins of the bilateral lower extremity. 2. Right popliteal cyst as detailed above.
--- NOTE | ~2021-12-22 | XR_ITS ---
EXAMINATION: XR CHEST CLINICAL INFORMATION: Pain. COMPARISON: None TECHNIQUE: Frontal view of the chest was obtained. FINDINGS: No significant abnormality is noted involving the heart, lungs, mediastinum, bony thorax or soft tissues. XR/XR chest 1V IMPRESSION: Unremarkable chest examination.
[2021-12-22 06:42] VITALS: BP 146/74; PULSE 93; O2SAT 97
[2021-12-22 07:18] VITALS: BP 101/64; PULSE 78; RESP 16; TEMP 36.7; O2SAT 97; BMI 41.9
--- NOTE | 2021-12-22 07:27 | ECG_ITS ---
Test Reason : CHEST PAIN Blood Pressure : / mmHG Vent. Rate : 080 BPM Atrial Rate : 080 BPM P-R Int : 170 ms QRS Dur : 084 ms QT Int : 396 ms P-R-T Axes : 033 006 020 degrees QTc Int : 456 ms Normal sinus rhythm Normal ECG When compared with ECG of 03-JUN-2020 10:59, No significant change was found Referred By: Brittany Garcia Electronically Signed By:IRINA SMITH
--- NOTE | 2021-12-22 07:35 | ED.GENADULT ---
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 She takes tylenol with little relief. She denies trauma, fevers, productive cough. MD complaint: R sided lung pain Onset (ago): week(s) (2) Location: chest Radiation: non-radiation Severity: moderate Quality: aching and sharp Pain Consistency: intermittent Relieving factors: none Exacerbating factors: movement and other (palpation, inspiration) Associated symptoms: denies other symptoms Treatments prior to arrival: other (tylenol) Related Data Home Medications Medication Instructions Recorded Confirmed amlodipine 10 mg tablet 10 mg PO DAILY 01/23/20 02/02/21 aspirin 81 mg tablet 81 mg PO DAILY 01/23/20 02/02/21 citalopram 20 mg tablet (Celexa) 20 mg PO DAILY 01/23/20 02/02/21 clonazepam 0.5 mg tablet 0.5 mg PO BEDTIME 01/23/20 02/02/21 diclofenac sodium 75 mg 75 mg PO BID 01/23/20 02/02/21 tablet,delayed release duloxetine 60 mg capsule,delayed 60 mg PO DAILY 01/23/20 02/02/21 release gabapentin 400 mg capsule 400 mg PO DAILY 01/23/20 02/02/21 losartan 100 1 tab PO DAILY 01/23/20 02/02/21 mg-hydrochlorothiazide 25 mg tablet tramadol 50 mg tablet 50 mg PO DAILY 01/23/20 02/02/21 loperamide 2 mg tablet (Imodium 2 mg PO Q6H PRN Diarrhea 06/19/20 02/02/21 A-D) topiramate 25 mg tablet (Topamax) 25 mg PO DAILY 07/02/20 02/02/21 Previous Rx's Medication Instructions Recorded doxycycline hyclate 100 mg tablet 100 mg PO Q12H #19 tabs 01/26/20 cyclobenzaprine 10 mg tablet 10 mg PO TID PRN muscle spasm #15 03/07/20 tabs lidocaine 5 % topical patch 1 patch topical DAILY #15 ea 11/28/20 (Lidoderm) bisacodyl 5 mg tablet,delayed 10 mg PO BEDTIME 2 days #4 tabs 08/17/20 release (Dulcolax (bisacodyl)) peg 3350-electrolytes 236 240 ml PO Q10M 1 day #4,000 mL 08/17/20 gram-22.74 gram-6.74 gram-5.86 gram solution (Golytely) dicyclomine 20 mg tablet 20 mg PO TID #90 tabs 09/29/20 oxycodone-acetaminophen 5 mg-325 1 tab PO Q8H PRN pain #7 tabs 10/22/20 mg tablet (Percocet) cholestyramine (with sugar) 4 gram 4 g PO DAILY 30 days #378 grams 02/02/21 oral powder pantoprazole 40 mg tablet,delayed 40 mg PO DAILY 30 days #30 tabs 08/05/21 release (Protonix) simethicone 180 mg capsule (Gas 180 mg PO QID #120 ea 08/30/21 Relief (simethicone)) pantoprazole 40 mg tablet,delayed 40 mg PO DAILY #30 tabs 10/27/21 release cyclobenzaprine 10 mg tablet 10 mg PO TID PRN muscle spasm #14 12/22/21 tabs lidocaine 5 % topical patch 1 patch topical DAILY #30 ea 12/22/21 Allergies Allergy/AdvReac Type Severity Reaction Status Date / Time No Known Allergies Allergy Verified 10/07/21 11:34 [No Known Allergies*] Review of Systems Review of Systems: Constitutional : No Weight loss, No Fever, No Chills ENT/Mouth : No sore throat, No Rhinorrhea Eyes: No Eye Pain, No Swelling Cardiovascular : pos Chest Pain, no SOB, no Dyspnea on Exertion, No Orthopnea, No Edema, No Palpitations Respiratory : No Cough, No Sputum Gastrointestinal :no Nausea, No Vomiting, No Diarrhea, No abdominal Pain, No Hematochezia, No Melena Genitourinary : No Dysuria, No Urinary Frequency Musculoskeletal : No joint pain, No Myalgias, No Joint Swelling Skin : No Skin Lesions, No rash Neuro : No Weakness, No Numbness, No Dizziness, No Headache Psych : No Anxiety/Panic, No Depression Heme/Lymph: No Bruising, No Lymphadenopathy Endocrine : No Polyuria, No Polydipsia All other systems reviewed and are negative PMFSH Past Medical History Attestation statement: The following information was validated with the patient. Medical History Abdominal cramping Arthritis Fibromyalgia Hypertension Morbid obesity Osteoarthritis Primary osteoarthritis of knees, bilateral Subcutaneous abscess Surgical History History of cholecystectomy (~2019) Family History Family History Father Stomach cancer Brother Stomach problems Social History Social History Household Members: Family Housing: Apartment Do you presently have visiting nurse or other home services: No Alcohol intake: never Patient Tobacco Use Status: Former Tobacco user Second Hand Smoke Exposure: No Advance Directives: Yes Advance Directives on File: Yes Advance Directives Date on File: 01/28/20 service: No Current occupational status: unemployed Physical Exam ED Vital Signs: Vital Signs - 24 hr 12/22/21 07:18 12/22/21 08:20 12/22/21 11:12 Temperature 98.0 F Pulse Rate 78 81 82 Respiratory Rate 16 16 20 Blood Pressure 101/64 117/71 124/68 Pulse Oximetry 97 95 96 Oxygen Delivery Method Room Air Room Air Room Air 12/22/21 12:03 Temperature Pulse Rate 86 Respiratory Rate 14 Blood Pressure 109/76 Pulse Oximetry 96 Oxygen Delivery Method Room Air BMI result Body Mass Index 41.9 Appearance: Alert. Oriented X3. No acute distress. Eyes: Pupils equal, round and reactive to light. ENT: Pharynx normal. Neck: Normal inspection. Neck supple. CVS: Normal heart rate and rhythm. Pulses normal. Respiratory: No respiratory distress. Breath sounds normal. Chest: ttp along R chest wall reproduces pain no rash seen Abdomen: Soft and nontender. Skin: Skin warm and dry. Normal skin color. Normal skin turgor. Extremities: No lower extremity edema. No calf ttp Neuro: Oriented X 3. No motor deficit. No sensory deficit. Course Course Course Narrative: ddimer elevated CTA ordered to r/o PE no hypoxia no tachycardia no signs of DVT - no large PE, ddimer on lower end 2 weeks of symptoms reproduceable with movement and palpation seems more MSK - somewhat limited study due to contrast timing if DVT studies negative will DC home DVT study negative at this time stable for DC home, pain is reproduceable x 2 weeks without overt VS changes and ddimer mildly elevated no DVTs Medical Decision Making MDM Narrative Medical decision making narrative: 56 yo female with hx of GERD, colitis, obesity, arthritis, fibromyalgia here with c/o pleuritic and reproducible to palpation R sided chest pain - seems atypical for ACS, low susp for PE though she is obese and reports some leg cramps will ordered ddimer. Seems like it could just be MSK in nature - CXR is ordered. Dispo per results and findings. Lab Data Result diagrams: 12/22/21 08:16 12/22/21 08:16 Labs: Lab Results 12/22/21 12/22/21 12/22/21 Range/Units 08:16 08:16 08:16 WBC 6.7 (4.8-10.8) X10*3/uL RBC 4.33 (4.20-5.50) X10*6/uL Hgb 12.2 (12.0-16.0) g/dl Hct 38.7 (37.0-47.0) % MCV 89.4 (80.0-98.0) fL MCH 28.2 (27.0-33.0) pg MCHC 31.5 (31.0-35.0) g/dl RDW 13.7 (11.0-16.0) % Plt Count 260 (160-400) X10*3/uL MPV 10.5 (9.4-12.3) fL Immature Gran % (Auto) 0.4 (0.0-0.4) % Neut % (Auto) 58.5 (45-73) % Lymph % (Auto) 27.3 (20-40) % Edmunds % (Auto) 9.7 (2-11) % Eos % (Auto) 3.7 (0-4) % Baso % (Auto) 0.4 (0-2) % Lymph # (Auto) 1.8 (1.2-4.9) X10*3/uL Edmunds # (Auto) 0.7 (0.1-1.2) X10*3/uL Eos # (Auto) 0.3 (0.0-0.4) X10*3/uL Baso # (Auto) 0.0 (0.0-0.2) X10*3/uL Abs Immat Gran (auto) 0.03 (0.00-0.03) X10*3/uL Absolute Neuts (auto) 3.9 (2.0-8.3) x10*3/uL Absolute Nucleated RBC 0.000 (0.0-0.012) X10*3/uL Nucleated RBC % (auto) 0.0 (0.0-0.2) /100WBC D-Dimer High Sensitivty 324 NG/ML Sodium 141 (135-145) mmol/L Potassium 4.0 (3.3-5.1) mmol/L Chloride 103 (96-108) mmol/L Carbon Dioxide 26 (22-29) mmol/L Anion Gap 16 (12-20) BUN 14 (9-16) mg/dL Creatinine 0.72 (0.5-1.4) mg/dL Estim Creat Clear Calc 112.5 Estimated GFR > 60 Random Glucose 125 H (60-115) mg/dL Calcium 9.1 (8.4-10.2) mg/dL Total Bilirubin 0.2 (0.0-1.0) mg/dL Direct Bilirubin < 0.2 (0.0-0.5) mg/dL AST 25 (5-31) U/L ALT 36 H (0-31) U/L Alkaline Phosphatase 107 (39-117) U/L Troponin I High Sens (<3.5-17.0) ng/L Total Protein 7.0 (6.5-8.0) g/dL Albumin 4.0 (3.5-5.0) g/dL COVID-19 ([facility]) (Negative) COVID-19 Clin Com 12/22/21 12/22/21 Range/Units 08:16 08:16 WBC (4.8-10.8) X10*3/uL RBC (4.20-5.50) X10*6/uL Hgb (12.0-16.0) g/dl Hct (37.0-47.0) % MCV (80.0-98.0) fL MCH (27.0-33.0) pg MCHC (31.0-35.0) g/dl RDW (11.0-16.0) % Plt Count (160-400) X10*3/uL MPV (9.4-12.3) fL Immature Gran % (Auto) (0.0-0.4) % Neut % (Auto) (45-73) % Lymph % (Auto) (20-40) % Edmunds % (Auto) (2-11) % Eos % (Auto) (0-4) % Baso % (Auto) (0-2) % Lymph # (Auto) (1.2-4.9) X10*3/uL Edmunds # (Auto) (0.1-1.2) X10*3/uL Eos # (Auto) (0.0-0.4) X10*3/uL Baso # (Auto) (0.0-0.2) X10*3/uL Abs Immat Gran (auto) (0.00-0.03) X10*3/uL Absolute Neuts (auto) (2.0-8.3) x10*3/uL Absolute Nucleated RBC (0.0-0.012) X10*3/uL Nucleated RBC % (auto) (0.0-0.2) /100WBC D-Dimer High Sensitivty NG/ML Sodium (135-145) mmol/L Potassium (3.3-5.1) mmol/L Chloride (96-108) mmol/L Carbon Dioxide (22-29) mmol/L Anion Gap (12-20) BUN (9-16) mg/dL Creatinine (0.5-1.4) mg/dL Estim Creat Clear Calc Estimated GFR Random Glucose (60-115) mg/dL Calcium (8.4-10.2) mg/dL Total Bilirubin (0.0-1.0) mg/dL Direct Bilirubin (0.0-0.5) mg/dL AST (5-31) U/L ALT (0-31) U/L Alkaline Phosphatase (39-117) U/L Troponin I High Sens < 3.5 (<3.5-17.0) ng/L Total Protein (6.5-8.0) g/dL Albumin (3.5-5.0) g/dL COVID-19 ([facility]) Negative (Negative) COVID-19 Clin Com See Note ECG Data Attestation: I personally reviewed and interpreted this ECG as follows: Interpretation: Rate: 80 Rhythm: NSR [place]: normal Normal P waves. Normal HORACIO. Normal QRS complex. ST T wave : normal no JENS qTC: normal prior studies: no acute ischemia The study has been interpreted contemporaneously by me. . Discharge Plan Discharge Clinical Impression: Chest wall pain Patient Disposition: Home, Self-Care Instructions: Chest Pain (ED), Chest Wall Pain (ED) Prescriptions: New cyclobenzaprine 10 mg tablet 10 mg PO TID PRN (Reason: muscle spasm) Qty: 14 0RF lidocaine 5 % adhesive patch,medicated 1 patch topical DAILY Qty: 30 0RF Rx Instructions: leave on most painful area for up to 12 hrs No Action dicyclomine 20 mg tablet 20 mg PO TID Qty: 90 1RF simethicone [Gas Relief (simethicone)] 180 mg capsule 180 mg PO QID Qty: 120 6RF pantoprazole 40 mg tablet,delayed release (DR/EC) 40 mg PO DAILY Qty: 30 1RF clonazepam 0.5 mg Tablet 0.5 mg PO BEDTIME citalopram [Celexa] 20 mg Tablet 20 mg PO DAILY gabapentin 400 mg Capsule 400 mg PO DAILY tramadol 50 mg Tablet 50 mg PO DAILY losartan-hydrochlorothiazide 100-25 mg Tablet 1 tab PO DAILY amlodipine 10 mg Tablet 10 mg PO DAILY diclofenac sodium 75 mg Tablet,Delayed Release (Dr/Ec) 75 mg PO BID Hold Instructions: Resume on 03/14/20. while you are taking Naproxen aspirin 81 mg Tablet 81 mg PO DAILY duloxetine 60 mg Capsule,Delayed Release(Dr/Ec) 60 mg PO DAILY doxycycline hyclate 100 mg Tablet 100 mg PO Q12H Qty: 19 0RF cyclobenzaprine 10 mg tablet 10 mg PO TID PRN (Reason: muscle spasm) Qty: 15 0RF lidocaine [Lidoderm] 5 % adhesive patch,medicated 1 patch topical DAILY Qty: 15 0RF Rx Instructions: leave on most painful area for up to 12 hrs oxycodone-acetaminophen [Percocet] 5-325 mg tablet 1 tab PO Q8H PRN (Reason: pain) Qty: 7 0RF loperamide [Imodium A-D] 2 mg tablet 2 mg PO Q6H PRN (Reason: Diarrhea) topiramate [Topamax] 25 mg tablet 25 mg PO DAILY bisacodyl [Dulcolax (bisacodyl)] 5 mg tablet,delayed release (DR/EC) 10 mg PO BEDTIME 2 Days Qty: 4 0RF peg 3350-electrolytes [Golytely] 236-22.74-6.74 -5.86 gram recon soln 240 ml PO Q10M 1 Days Qty: 4000 0RF Rx Instructions: until fecal effluent is clear; do not exceed a total volume of 2,000 mL cholestyramine (with sugar) 4 gram powder 4 g PO DAILY 30 Days Qty: 378 3RF Rx Instructions: administer w/meal; avoid other meds within 1hr before or 4-6hr after dose pantoprazole [Protonix] 40 mg tablet,delayed release (DR/EC) 40 mg PO DAILY 30 Days Qty: 30 6RF Referrals: Chelsi Kauffman MD [Primary Care Provider] - 1 week (if not better) Print Language: Persian
[2021-12-22 08:20] VITALS: BP 117/71; PULSE 81; RESP 16; O2SAT 95
[2021-12-22 08:22] LABS: MANUAL DIFF FLAG NO
[2021-12-22 08:25] LABS: Basophils Percent Auto 0.4 % (0-2); Eosinophils Absolute Auto 0.3 X10*3/uL (0.0-0.4); Eosinophils Percent Auto 3.7 % (0-4); Hematocrit 38.7 % (37.0-47.0); Hemoglobin 12.2 g/dl (12.0-16.0); Imm Gran Abs Auto 0.03 X10*3/uL (0.00-0.03); Imm Gran Pct Auto 0.4 % (0.0-0.4); Lymphocytes Absolute Auto 1.8 X10*3/uL (1.2-4.9); Lymphocytes Percent Auto 27.3 % (20-40); Mean Corpuscular HGB Conc 31.5 g/dl (31.0-35.0); Mean Corpuscular Hemoglobin 28.2 pg (27.0-33.0); Mean Corpuscular Volume 89.4 fL (80.0-98.0); Mean Platelet Volume 10.5 fL (9.4-12.3); Monocytes Absolute Auto 0.7 X10*3/uL (0.1-1.2); Monocytes Percent Auto 9.7 % (2-11); Neutrophils Absolute Auto 3.9 x10*3/uL (2.0-8.3); Neutrophils Percent Auto 58.5 % (45-73); Platelet Count 260 X10*3/uL (160-400); Red Blood Count 4.33 X10*6/uL (4.20-5.50); Red Cell Distribution Width 13.7 % (11.0-16.0); White Blood Count 6.7 X10*3/uL (4.8-10.8)
[2021-12-22 08:34] LABS: D Dimer High Sensitivity 324 NG/ML
[2021-12-22 08:40] LABS: Alanine Aminotransferase 36 U/L (0-31); Alkaline Phosphatase 107 U/L (39-117); Anion Gap 16 (12-20); Aspartate Amino Transferase 25 U/L (5-31); Bilirubin Direct < 0.2 mg/dL (0.0-0.5); Bilirubin Total 0.2 mg/dL (0.0-1.0); Blood Urea Nitrogen 14 mg/dL (9-16); Calcium 9.1 mg/dL (8.4-10.2); Carbon Dioxide 26 mmol/L (22-29); Chloride 103 mmol/L (96-108); Creatinine Clr Calc Pharmacy 112.5; Estimated Glomerular Filt Rate > 60; Glucose Random 125 mg/dL (60-115); Sodium 141 mmol/L (135-145)
[2021-12-22 08:43] LABS: COVID-19 Test Negative (Negative); IDNOW Serial# 16C4AD1C
[2021-12-22 08:45] LABS: Troponin-I High Sensitivity < 3.5 ng/L (<3.5-17.0)
[2021-12-22] MEDS: iohexoL 350 MG/ML 100 ML INFUS..BTL IV (10:30)
[2021-12-22 11:12] VITALS: BP 124/68; PULSE 82; RESP 20; O2SAT 96
[2021-12-22 12:03] VITALS: BP 109/76; PULSE 86; RESP 14; O2SAT 96
== END 2021-12-22 12:36 | disposition home or self-care (01) ==
PROVIDERS: Emergency Provider Emergency Medicine; PCP Internal Medicine
DX: R07.89 Other chest pain (principal); R00.2 Palpitations; R60.0 Localized edema; R07.81 Pleurodynia; Z20.822 Contact with and (suspected) exposure to COVID-19; Z79.899 Other long term (current) drug therapy; Z87.891 Personal history of nicotine dependence
CPT/HCPCS: 36415; 71045; 71275; 80048; 80076; 84484; 85025; 85379; 87635; 93005; 93970; 99284; Q9967

== ENCOUNTER 2022-01-21 10:00 | Outpatient (RCR) | payer OTHER, SELFPAY | END 2022-02-15 08:40 | disposition home or self-care (01) | LOC: HO.PT 10:00 | PROVIDERS: PCP Internal Medicine; Visit Provider Physical Medicine & Rehabilitation | DX: M54.50 Low back pain, unspecified (principal) | CPT/HCPCS: 97110; 97140; 97161 ==

== ENCOUNTER 2022-01-24 10:32 | Outpatient (REF) | payer OTHER, SELFPAY ==
--- NOTE | ~2022-01-24 | XR_ITS ---
EXAMINATION: BILATERAL WRIST X-RAY CLINICAL INFORMATION: Pain COMPARISON: None TECHNIQUE: 3 views of each wrist FINDINGS: Right: There is an old healed fracture of the distal radius with plate and screws. Old ulnar styloid fracture. No acute fracture or dislocation. Degenerative changes at the first USP, trapezoid trapezium scaphoid joints and lunate triquetral joints. Degenerative changes visualized in the hand at the IP joint of the thumb and third MCP joint. Normal soft tissues. Left: Bone alignment is normal. No fracture or dislocation. Arthritis at the first USP joint and trapezoid trapezium scaphoid joints. Mild arthritis at the lunate triquetral joint. Arthritis at the IP joint of the thumb. Normal soft tissues. XR/XR wrist LT min 3V IMPRESSION: Right: Evidence of old trauma to the distal radius and ulnar styloid. Degenerative changes. Left: Degenerative changes.
--- NOTE | ~2022-01-24 | XR_ITS ---
EXAMINATION: BILATERAL WRIST X-RAY CLINICAL INFORMATION: Pain COMPARISON: None TECHNIQUE: 3 views of each wrist FINDINGS: Right: There is an old healed fracture of the distal radius with plate and screws. Old ulnar styloid fracture. No acute fracture or dislocation. Degenerative changes at the first [facility], trapezoid trapezium scaphoid joints and lunate triquetral joints. Degenerative changes visualized in the hand at the IP joint of the thumb and third MCP joint. Normal soft tissues. Left: Bone alignment is normal. No fracture or dislocation. Arthritis at the first [facility] joint and trapezoid trapezium scaphoid joints. Mild arthritis at the lunate triquetral joint. Arthritis at the IP joint of the thumb. Normal soft tissues. XR/XR wrist RT min 3V IMPRESSION: Right: Evidence of old trauma to the distal radius and ulnar styloid. Degenerative changes. Left: Degenerative changes.
== END 2022-01-24 10:33 | disposition home or self-care (01) ==
LOC: HO.HOSX 10:32
PROVIDERS: Visit Provider Physician Assistant
DX: M18.12 Unilateral primary osteoarthritis of first carpometacarpal joint, left hand (principal); G56.01 Carpal tunnel syndrome, right upper limb; M25.532 Pain in left wrist; M25.531 Pain in right wrist; R20.0 Anesthesia of skin; R20.2 Paresthesia of skin
CPT/HCPCS: 20600; 73110; 99202; J1020

== ENCOUNTER → 2022-01-25 08:20 | Outpatient (BNVA) | payer OTHER, SELFPAY | PROVIDERS: PCP Internal Medicine; Referring Provider Internal Medicine; Visit Provider Internal Medicine | DX: R00.2 Palpitations (principal) | CPT/HCPCS: 99212 ==

== ENCOUNTER → 2022-01-26 12:48 | Outpatient (BNVA) | payer OTHER, SELFPAY | PROVIDERS: PCP Internal Medicine; Visit Provider Nurse Practitioner | DX: D12.6 Benign neoplasm of colon, unspecified (principal); K58.0 Irritable bowel syndrome with diarrhea; K21.9 Gastro-esophageal reflux disease without esophagitis | CPT/HCPCS: 99212 ==

== ENCOUNTER → 2022-02-17 10:37 | Outpatient (REF) | payer OTHER, SELFPAY | LOC: HO.SL 10:37 | PROVIDERS: PCP Internal Medicine; Visit Provider Internal Medicine | DX: G47.33 Obstructive sleep apnea (adult) (pediatric) (principal); R40.0 Somnolence; R06.83 Snoring | CPT/HCPCS: 95806 ==

== ENCOUNTER → 2022-02-18 10:55 | Outpatient (REF) | payer OTHER, SELFPAY ==
--- NOTE | 2022-02-18 11:01 | HM_ITS ---
* Total monitoring time 2 days and 23 hours. * Underlying rhythm is sinus. Average ventricular rate 83/Min. Range 51 to 156/Min. About 18% of the time, rate > 100/Min. * Very rare supraventricular/ventricular ectopy. * No significant pauses or AV blocks. * Symptoms in patient diary correlate with sinus rhythm. MTDD
== END ==
LOC: HO.CARD 10:55
PROVIDERS: Visit Provider Internal Medicine
DX: R00.2 Palpitations (principal)
CPT/HCPCS: 93242

== ENCOUNTER 2022-03-26 02:32 | Emergency (ER) | payer OTHER, SELFPAY ==
--- NOTE | ~2022-03-26 | XR_ITS ---
EXAMINATION: X-RAY LEFT ELBOW X-RAY LEFT WRIST CLINICAL INFORMATION: Fall, pain. COMPARISON: Radiograph of the left wrist 01/24/2022. TECHNIQUE: 2 views of the left elbow. 3 views of the left wrist. FINDINGS: Comminuted predominantly horizontally oriented distal radial fracture with mild dorsal angulation and minimal impaction No other fractures in the left elbow or left wrist. Severe degenerative osteophyte arthritis of the first carpometacarpal articulation with joint space narrowing and subcortical sclerosis. Soft tissue swelling adjacent to the fracture site. No unexpected radiopaque foreign bodies. XR/XR wrist LT min 3V IMPRESSION: 1. Distal radial fracture as above. 2. Severe degenerative osteoarthritis of the first carpometacarpal articulation.
--- NOTE | ~2022-03-26 | XR_ITS ---
EXAMINATION: X-RAY LEFT ELBOW X-RAY LEFT WRIST CLINICAL INFORMATION: Fall, pain. COMPARISON: Radiograph of the left wrist 01/24/2022. TECHNIQUE: 2 views of the left elbow. 3 views of the left wrist. FINDINGS: Comminuted predominantly horizontally oriented distal radial fracture with mild dorsal angulation and minimal impaction No other fractures in the left elbow or left wrist. Severe degenerative osteophyte arthritis of the first carpometacarpal articulation with joint space narrowing and subcortical sclerosis. Soft tissue swelling adjacent to the fracture site. No unexpected radiopaque foreign bodies. XR/XR elbow LT 2V IMPRESSION: 1. Distal radial fracture as above. 2. Severe degenerative osteoarthritis of the first carpometacarpal articulation.
[2022-03-26 02:42] VITALS: BP 110/65; BP 134/98; PULSE 76; PULSE 81; RESP 16; TEMP 36.9; O2SAT 93; O2SAT 97; BMI 43.2
--- NOTE | 2022-03-26 02:50 | ECG_ITS ---
Test Reason : FALL Blood Pressure : / mmHG Vent. Rate : 074 BPM Atrial Rate : 074 BPM P-R Int : 168 ms QRS Dur : 094 ms QT Int : 410 ms P-R-T Axes : 025 019 030 degrees QTc Int : 455 ms Normal sinus rhythm Normal ECG When compared with ECG of 22-DEC-2021 07:29, No significant change was found Referred By: Shirlene Miller Electronically Signed By:CAMILLE PLASCENCIA
--- NOTE | 2022-03-26 02:53 | ED.GENADULT ---
HPI - General Adult General Chief complaint: Fall Stated complaint: hand and neck pain after fall Time Seen by Provider: 03/26/22 02:45 Source: patient and EMS Mode of arrival: EMS Limitations: no limitations History of Present Illness HPI narrative: Patient comes to the emergency room complaining of left-sided wrist pain after a fall. Patient states that she went up to the bathroom, on her way back to the bedroom, patient fell backwards. Patient states that she did not lose consciousness, denies headache or neck pain. Patient states that she is known to have episodes of vertigo and orthostatic hypotension. Patient states that her left wrist and left elbow hurt quite a bit. Related Data Home Medications Medication Instructions Recorded Confirmed amlodipine 10 mg tablet 10 mg PO DAILY 01/23/20 01/25/22 citalopram 20 mg tablet (Celexa) 20 mg PO DAILY 01/23/20 01/25/22 clonazepam 0.5 mg tablet 0.5 mg PO BEDTIME 01/23/20 01/25/22 diclofenac sodium 75 mg 75 mg PO BID 01/23/20 01/25/22 tablet,delayed release duloxetine 60 mg capsule,delayed 60 mg PO DAILY 01/23/20 01/25/22 release tramadol 50 mg tablet 50 mg PO DAILY 01/23/20 01/25/22 loperamide 2 mg tablet (Imodium 2 mg PO Q6H PRN Diarrhea 06/19/20 01/25/22 A-D) amitriptyline 25 mg tablet 25 mg PO BEDTIME 01/26/22 ammonium lactate 12 % lotion topical DAILY 01/26/22 aspirin 81 mg tablet,delayed 81 mg PO DAILY 01/26/22 release cetirizine 10 mg tablet 10 mg PO DAILY 01/26/22 cholecalciferol (vitamin D3) 50 50 mcg PO DAILY 01/26/22 mcg (2,000 unit) capsule (Vitamin D3) fluticasone propionate 110 2 puff inhalation BID 01/26/22 mcg/actuation HFA aerosol inhaler (Flovent HFA) gabapentin 600 mg tablet 600 mg PO BID 01/26/22 hydralazine 25 mg tablet 25 mg PO BID 01/26/22 hydrochlorothiazide 25 mg tablet 25 mg PO DAILY 01/26/22 losartan 100 mg tablet 100 mg PO DAILY 01/26/22 meclizine 25 mg tablet 25 mg PO TID PRN 01/26/22 melatonin 3 mg tablet 3 - 6 mg PO BEDTIME PRN 01/26/22 metformin 500 mg tablet 500 mg PO 01/26/22 Previous Rx's Medication Instructions Recorded dicyclomine 20 mg tablet 20 mg PO TID #90 tabs 09/29/20 cholestyramine (with sugar) 4 gram 4 g PO DAILY 30 days #378 grams 02/02/21 oral powder simethicone 180 mg capsule (Gas 180 mg PO QID #120 ea 08/30/21 Relief (simethicone)) pantoprazole 40 mg tablet,delayed 40 mg PO DAILY #30 tabs 10/27/21 release cyclobenzaprine 10 mg tablet 10 mg PO TID PRN muscle spasm #14 12/22/21 tabs lidocaine 5 % topical patch 1 patch topical DAILY #30 ea 12/22/21 cefuroxime axetil 500 mg tablet 500 mg PO BID #13 tabs 03/26/22 ibuprofen 600 mg tablet 600 mg PO TID PRN fever or pain 03/26/22 #20 tabs tramadol 50 mg tablet 50 mg PO BID PRN pain #4 tabs 03/26/22 Allergies Allergy/AdvReac Type Severity Reaction Status Date / Time No Known Allergies Allergy Verified 01/26/22 12:57 [No Known Allergies*] Review of Systems Review of Systems: Constitutional : No Weight loss, No Fever, No Chills, No Night Sweats, No Fatigue, No Malaise ENT/Mouth : No Hearing loss, No Ear Pain, No Nasal Congestion, No Sinus Pain, No Hoarseness, No sore throat, No Rhinorrhea, No Swallowing Difficulty Eyes: No Eye Pain, No Swelling, No Redness, No Foreign Body, No Discharge, No Vision Changes Cardiovascular : No Chest Pain, No SOB, No Dyspnea on Exertion, No Orthopnea, No Edema, No Palpitations Respiratory : No Cough, No Sputum, No Wheezing, No Smoke Exposure, No Dyspnea Gastrointestinal : No Nausea, No Vomiting, No Diarrhea, No Constipation, No abdominal Pain, No Hematochezia, No Melena Genitourinary : no irregular bleeding, No Dysuria, No Urinary Frequency, No Hematuria, No Urinary Incontinence, No Urgency, No Flank Pain, No Urinary Flow Changes, No Hesitancy Musculoskeletal : Complaining of left wrist and elbow pain, No Myalgias, No Joint Swelling Skin : No Skin Lesions, No rash Neuro : No Weakness, No Numbness, No Paresthesias, No Loss of Consciousness, complaining of possible vasovagal syncope versus near-syncope versus orthostatic hypotension versus vertigo Psych : No Anxiety/Panic, No Depression, No SI/HI/AH/VH, No Social Issues, Heme/Lymph: No Bruising, No Bleeding,No Lymphadenopathy Endocrine : No Polyuria, No Polydipsia, No Temperature Intolerance [facility] Past Medical History Medical History Abdominal cramping Arthritis Epigastric pain Fibromyalgia Hypertension Morbid obesity Osteoarthritis Primary osteoarthritis of knees, bilateral Subcutaneous abscess Surgical History History of cholecystectomy (~2019) Hx of colonoscopy Family History Family History Father Stomach cancer Brother Stomach problems Social History Social History Household Members: Family Housing: Apartment Do you presently have visiting nurse or other home services: No Alcohol intake: never Patient Tobacco Use Status: Former Tobacco user Smoked in Last 30 Days: No Second Hand Smoke Exposure: No Use of substances other than those prescribed or required for medical reasons: No Advance Directives: Yes Advance Directives on File: Yes Advance Directives Date on File: 01/28/20 service: No Current occupational status: unemployed Physical Exam ED Vital Signs: Vital Signs - 24 hr 03/26/22 02:42 03/26/22 03:15 03/26/22 03:17 Temperature 98.4 F Pulse Rate 81 74 87 Respiratory Rate 16 Blood Pressure 110/65 117/59 L 123/61 Pulse Oximetry 93 Oxygen Delivery Method Room Air 03/26/22 03:18 Temperature Pulse Rate 83 Respiratory Rate Blood Pressure 104/62 Pulse Oximetry Oxygen Delivery Method BMI result Body Mass Index 43.2 Const Other: Appearance: Alert. Oriented X3. No acute distress. Eyes: Pupils equal, round and reactive to light. ENT: Pharynx normal. Neck: Normal inspection. Neck supple. No lymph nodes noted. No crepitus, normal in neck, no palpable step-offs, no pain to palpation, normal range of motion CVS: Normal heart rate and rhythm. Pulses normal. Normal S1 and S2 Respiratory: No respiratory distress. Breath sounds normal. No Wheezing. No rales Abdomen: Soft and nontender. No rigidity. No distention. Skin: Skin warm and dry. Normal skin color. Normal skin turgor. Extremities: No lower extremity edema, there is swelling around the left wrist, unable to flex wrist or extend it due to pain Neuro: Oriented X 3. No motor deficit. No sensory deficit. Moving all extremities. No slurred speech. CN 2 through 12 grossly intact Psych: calm, cooperative, normal affect Course Course Course Narrative: We will do cardiac workup. Patient likely had vasovagal episode versus vertigo for which she is known to have. Labs and imaging pending. X-ray shows a distal radial fracture FINDINGS: Comminuted predominantly horizontally oriented distal radial fracture with mild dorsal angulation and minimal impaction No other fractures in the left elbow or left wrist. Severe degenerative osteophyte arthritis of the first carpometacarpal articulation with joint space narrowing and subcortical sclerosis. Soft tissue swelling adjacent to the fracture site. No unexpected radiopaque foreign bodies.? XR/XR wrist LT min 3V IMPRESSION: 1.? Distal radial fracture as above. 2.? Severe degenerative osteoarthritis of the first carpometacarpal articulation. Medications Administered Discontinued Medications Generic Name Dose Route Start Last Admin Trade Name Freq PRN Reason Stop Dose Admin Cefuroxime Axetil 500 mg 03/26/22 04:47 03/26/22 05:02 Cefuroxime Axetil 500 Mg Tablet PO 03/26/22 04:48 500 mg ONCE ONE Administration Ibuprofen 600 mg 03/26/22 02:50 03/26/22 03:43 Ibuprofen 600 Mg Tablet PO 03/26/22 02:51 600 mg ONCE ONE Administration Medical Decision Making Medical Decision Making [facility] Narrative: I reviewed the x-ray of the left wrist, patient has a distal radial fracture. At this time, if I would try to reduce any further, it would probably end up not well outlined. Patient will be placed on a volar splint, referred to Orthopedics Patient was given p.o. cefuroxime for UTI. Lab Data Result Diagrams: 03/26/22 03:03 03/26/22 03:03 Labs: Lab Results 03/26/22 03/26/22 03/26/22 Range/Units 03:03 03:03 03:03 WBC 8.2 (4.8-10.8) X10*3/uL RBC 4.21 (4.20-5.50) X10*6/uL Hgb 11.8 L (12.0-16.0) g/dl Hct 36.6 L (37.0-47.0) % MCV 86.9 (80.0-98.0) fL MCH 28.0 (27.0-33.0) pg MCHC 32.2 (31.0-35.0) g/dl RDW 14.2 (11.0-16.0) % Plt Count 246 (160-400) X10*3/uL MPV 11.0 (9.4-12.3) fL Immature Gran % (Auto) 0.4 (0.0-0.4) % Neut % (Auto) 67.1 (45-73) % Lymph % (Auto) 20.6 (20-40) % [place] % (Auto) 9.6 (2-11) % Eos % (Auto) 1.9 (0-4) % Baso % (Auto) 0.4 (0-2) % Lymph # (Auto) 1.7 (1.2-4.9) X10*3/uL [place] # (Auto) 0.8 (0.1-1.2) X10*3/uL Eos # (Auto) 0.2 (0.0-0.4) X10*3/uL Baso # (Auto) 0.0 (0.0-0.2) X10*3/uL Abs Immat Gran (auto) 0.03 (0.00-0.03) X10*3/uL Absolute Neuts (auto) 5.5 (2.0-8.3) x10*3/uL Absolute Nucleated RBC 0.000 (0.0-0.012) X10*3/uL Nucleated RBC % (auto) 0.0 (0.0-0.2) /100WBC PT 9.9 L (10.0-13.1) SEC INR 0.9 (0.9-1.1) Sodium 139 (135-145) mmol/L Potassium 3.7 (3.3-5.1) mmol/L Chloride 105 (96-108) mmol/L Carbon Dioxide 27 (22-29) mmol/L Anion Gap 11 L (12-20) BUN 17 H (9-16) mg/dL Creatinine 0.68 (0.5-1.4) mg/dL Estim Creat Clear Calc 121.3 Estimated GFR > 60 Random Glucose 147 H (60-115) mg/dL Calcium 8.9 (8.4-10.2) mg/dL Troponin I High Sens (<3.5-17.0) ng/L Urine Color Urine Appearance Urine pH (5.0-9.0) Ur Specific [place] (1.005-1.025) Urine Protein (Neg-Trace) mg/dL Urine Glucose (UA) (Negative) mg/dL Urine Ketones (Negative) mg/dL Urine Blood (Negative) Urine Nitrite (Negative) Ur Leukocyte Esterase (Negative) Urine RBC (0-2) /HPF Urine WBC (0-5) /HPF Ur Squamous Epith Cells (0-2) /HPF Urine Bacteria (None Seen) Hyaline Casts (0-2) /LPF Urine Opiates Screen (Not Detect) Urine Fentanyl Screen (Not Detect) Ur Barbiturates Screen (Not Detect) Ur Phencyclidine Scrn (Not Detect) Ur Amphetamines Screen (Not Detect) U Benzodiazepines Scrn (Not Detect) Urine Cocaine Screen (Not Detect) U Marijuana (THC) Screen (Not Detect) COVID-19 (YURI) (Negative) COVID-19 Clin Com 03/26/22 03/26/22 03/26/22 Range/Units 03:03 03:03 03:53 WBC (4.8-10.8) X10*3/uL RBC (4.20-5.50) X10*6/uL Hgb (12.0-16.0) g/dl Hct (37.0-47.0) % MCV (80.0-98.0) fL MCH (27.0-33.0) pg MCHC (31.0-35.0) g/dl RDW (11.0-16.0) % Plt Count (160-400) X10*3/uL MPV (9.4-12.3) fL Immature Gran % (Auto) (0.0-0.4) % Neut % (Auto) (45-73) % Lymph % (Auto) (20-40) % [place] % (Auto) (2-11) % Eos % (Auto) (0-4) % Baso % (Auto) (0-2) % Lymph # (Auto) (1.2-4.9) X10*3/uL [place] # (Auto) (0.1-1.2) X10*3/uL Eos # (Auto) (0.0-0.4) X10*3/uL Baso # (Auto) (0.0-0.2) X10*3/uL Abs Immat Gran (auto) (0.00-0.03) X10*3/uL Absolute Neuts (auto) (2.0-8.3) x10*3/uL Absolute Nucleated RBC (0.0-0.012) X10*3/uL Nucleated RBC % (auto) (0.0-0.2) /100WBC PT (10.0-13.1) SEC INR (0.9-1.1) Sodium (135-145) mmol/L Potassium (3.3-5.1) mmol/L Chloride (96-108) mmol/L Carbon Dioxide (22-29) mmol/L Anion Gap (12-20) BUN (9-16) mg/dL Creatinine (0.5-1.4) mg/dL Estim Creat Clear Calc Estimated GFR Random Glucose (60-115) mg/dL Calcium (8.4-10.2) mg/dL Troponin I High Sens < 3.5 (<3.5-17.0) ng/L Urine Color Yellow Urine Appearance Clear Urine pH 7.0 (5.0-9.0) Ur Specific [place] 1.010 (1.005-1.025) Urine Protein Negative (Neg-Trace) mg/dL Urine Glucose (UA) Negative (Negative) mg/dL Urine Ketones Negative (Negative) mg/dL Urine Blood Negative (Negative) Urine Nitrite Negative (Negative) Ur Leukocyte Esterase Trace H (Negative) Urine RBC 0-2 (0-2) /HPF Urine WBC 0-5 (0-5) /HPF Ur Squamous Epith Cells 0-2 (0-2) /HPF Urine Bacteria None Seen (None Seen) Hyaline Casts 0-2 (0-2) /LPF Urine Opiates Screen (Not Detect) Urine Fentanyl Screen (Not Detect) Ur Barbiturates Screen (Not Detect) Ur Phencyclidine Scrn (Not Detect) Ur Amphetamines Screen (Not Detect) U Benzodiazepines Scrn (Not Detect) Urine Cocaine Screen (Not Detect) U Marijuana (THC) Screen (Not Detect) COVID-19 (YURI) Negative (Negative) COVID-19 Clin Com See Note 03/26/22 Range/Units 03:53 WBC (4.8-10.8) X10*3/uL RBC (4.20-5.50) X10*6/uL Hgb (12.0-16.0) g/dl Hct (37.0-47.0) % MCV (80.0-98.0) fL MCH (27.0-33.0) pg MCHC (31.0-35.0) g/dl RDW (11.0-16.0) % Plt Count (160-400) X10*3/uL MPV (9.4-12.3) fL Immature Gran % (Auto) (0.0-0.4) % Neut % (Auto) (45-73) % Lymph % (Auto) (20-40) % [place] % (Auto) (2-11) % Eos % (Auto) (0-4) % Baso % (Auto) (0-2) % Lymph # (Auto) (1.2-4.9) X10*3/uL [place] # (Auto) (0.1-1.2) X10*3/uL Eos # (Auto) (0.0-0.4) X10*3/uL Baso # (Auto) (0.0-0.2) X10*3/uL Abs Immat Gran (auto) (0.00-0.03) X10*3/uL Absolute Neuts (auto) (2.0-8.3) x10*3/uL Absolute Nucleated RBC (0.0-0.012) X10*3/uL Nucleated RBC % (auto) (0.0-0.2) /100WBC PT (10.0-13.1) SEC INR (0.9-1.1) Sodium (135-145) mmol/L Potassium (3.3-5.1) mmol/L Chloride (96-108) mmol/L Carbon Dioxide (22-29) mmol/L Anion Gap (12-20) BUN (9-16) mg/dL Creatinine (0.5-1.4) mg/dL Estim Creat Clear Calc Estimated GFR Random Glucose (60-115) mg/dL Calcium (8.4-10.2) mg/dL Troponin I High Sens (<3.5-17.0) ng/L Urine Color Urine Appearance Urine pH (5.0-9.0) Ur Specific [place] (1.005-1.025) Urine Protein (Neg-Trace) mg/dL Urine Glucose (UA) (Negative) mg/dL Urine Ketones (Negative) mg/dL Urine Blood (Negative) Urine Nitrite (Negative) Ur Leukocyte Esterase (Negative) Urine RBC (0-2) /HPF Urine WBC (0-5) /HPF Ur Squamous Epith Cells (0-2) /HPF Urine Bacteria (None Seen) Hyaline Casts (0-2) /LPF Urine Opiates Screen Not Detected (Not Detect) Urine Fentanyl Screen Not Detected (Not Detect) Ur Barbiturates Screen Not Detected (Not Detect) Ur Phencyclidine Scrn Not Detected (Not Detect) Ur Amphetamines Screen Not Detected (Not Detect) U Benzodiazepines Scrn Not Detected (Not Detect) Urine Cocaine Screen Not Detected (Not Detect) U Marijuana (THC) Screen Not Detected (Not Detect) COVID-19 (YURI) (Negative) COVID-19 Clin Com Discharge Plan Discharge Clinical Impression: Distal radial fracture, UTI (urinary tract infection) Patient Disposition: Home, Self-Care Instructions: Wrist Fracture in Adults (ED), Urinary Tract Infection in Women (ED) Additional Instructions: Please follow-up with your primary care physician tomorrow. If you have any worsening or new symptoms, please return to the emergency room or call 911 Prescriptions: New cefuroxime axetil 500 mg tablet 500 mg PO BID Qty: 13 0RF ibuprofen 600 mg tablet 600 mg PO TID PRN (Reason: fever or pain) Qty: 20 0RF tramadol 50 mg tablet 50 mg PO BID PRN (Reason: pain) Qty: 4 0RF No Action dicyclomine 20 mg tablet 20 mg PO TID Qty: 90 1RF simethicone [Gas Relief (simethicone)] 180 mg capsule 180 mg PO QID Qty: 120 6RF pantoprazole 40 mg tablet,delayed release (DR/EC) 40 mg PO DAILY Qty: 30 1RF clonazepam 0.5 mg Tablet 0.5 mg PO BEDTIME citalopram [Celexa] 20 mg Tablet 20 mg PO DAILY tramadol 50 mg Tablet 50 mg PO DAILY amlodipine 10 mg Tablet 10 mg PO DAILY diclofenac sodium 75 mg Tablet,Delayed Release (Dr/Ec) 75 mg PO BID Hold Instructions: Resume on 03/14/20. while you are taking Naproxen duloxetine 60 mg Capsule,Delayed Release(Dr/Ec) 60 mg PO DAILY cyclobenzaprine 10 mg tablet 10 mg PO TID PRN (Reason: muscle spasm) Qty: 14 0RF lidocaine 5 % adhesive patch,medicated 1 patch topical DAILY Qty: 30 0RF Rx Instructions: leave on most painful area for up to 12 hrs loperamide [Imodium A-D] 2 mg tablet 2 mg PO Q6H PRN (Reason: Diarrhea) cholestyramine (with sugar) 4 gram powder 4 g PO DAILY 30 Days Qty: 378 3RF Rx Instructions: administer w/meal; avoid other meds within 1hr before or 4-6hr after dose fluticasone propionate [Flovent HFA] 110 mcg/actuation HFA aerosol inhaler 2 puff inhalation BID losartan 100 mg tablet 100 mg PO DAILY hydrochlorothiazide 25 mg tablet 25 mg PO DAILY aspirin 81 mg tablet,delayed release (DR/EC) 81 mg PO DAILY melatonin 3 mg tablet 3 - 6 mg PO BEDTIME PRN metformin 500 mg tablet 500 mg PO cholecalciferol (vitamin D3) [Vitamin D3] 50 mcg (2,000 unit) capsule 50 mcg PO DAILY meclizine 25 mg tablet 25 mg PO TID PRN amitriptyline 25 mg tablet 25 mg PO BEDTIME cetirizine 10 mg tablet 10 mg PO DAILY hydralazine 25 mg tablet 25 mg PO BID gabapentin 600 mg tablet 600 mg PO BID ammonium lactate 12 % lotion topical DAILY Referrals: Jennifer Starks PA-C [[employer] General Supervisor] - 2 days
[2022-03-26 03:08] LABS: MANUAL DIFF FLAG NO
[2022-03-26 03:09] LABS: Basophils Percent Auto 0.4 % (0-2); Eosinophils Absolute Auto 0.2 X10*3/uL (0.0-0.4); Eosinophils Percent Auto 1.9 % (0-4); Hematocrit 36.6 % (37.0-47.0); Hemoglobin 11.8 g/dl (12.0-16.0); Imm Gran Abs Auto 0.03 X10*3/uL (0.00-0.03); Imm Gran Pct Auto 0.4 % (0.0-0.4); Lymphocytes Absolute Auto 1.7 X10*3/uL (1.2-4.9); Lymphocytes Percent Auto 20.6 % (20-40); Mean Corpuscular HGB Conc 32.2 g/dl (31.0-35.0); Mean Corpuscular Volume 86.9 fL (80.0-98.0); Monocytes Absolute Auto 0.8 X10*3/uL (0.1-1.2); Monocytes Percent Auto 9.6 % (2-11); Neutrophils Absolute Auto 5.5 x10*3/uL (2.0-8.3); Neutrophils Percent Auto 67.1 % (45-73); Platelet Count 246 X10*3/uL (160-400); Red Blood Count 4.21 X10*6/uL (4.20-5.50); Red Cell Distribution Width 14.2 % (11.0-16.0); White Blood Count 8.2 X10*3/uL (4.8-10.8)
[2022-03-26 03:14] LABS: INTERNATIONAL NORM RATIO 0.9 (0.9-1.1); Prothrombin Time 9.9 SEC (10.0-13.1)
[2022-03-26 03:15] VITALS: BP 117/59; PULSE 74
[2022-03-26 03:17] VITALS: BP 123/61; PULSE 87
[2022-03-26 03:18] VITALS: BP 104/62; PULSE 83
[2022-03-26 03:22] LABS: COVID-19 Test Negative (Negative)
[2022-03-26 03:26] LABS: Anion Gap 11 (12-20); Blood Urea Nitrogen 17 mg/dL (9-16); Calcium 8.9 mg/dL (8.4-10.2); Carbon Dioxide 27 mmol/L (22-29); Chloride 105 mmol/L (96-108); Creatinine Clr Calc Pharmacy 121.3; Estimated Glomerular Filt Rate > 60; Glucose Random 147 mg/dL (60-115); Potassium 3.7 mmol/L (3.3-5.1); Sodium 139 mmol/L (135-145)
[2022-03-26 03:34] LABS: Troponin-I High Sensitivity < 3.5 ng/L (<3.5-17.0)
[2022-03-26] MEDS: Ibuprofen 600 MG TABLET PO (03:43)
--- NOTE | 2022-03-26 03:59 | PC.NURSE ---
PT ambulated to the bathroom independently. Denies any dizziness. Urine sample obtained and sent to lab.
[2022-03-26 04:02] LABS: Appearance Urine Clear; Color Urine Yellow; Glucose Urine UA Negative (Negative); Leukocyte Esterase Urine Trace (Negative); Nitrite Urine Negative (Negative); UMIC TRIGGER UACC YES; Urine Blood Negative (Negative); Urine Ketones Negative (Negative); Urine Protein Negative (Neg-Trace)
[2022-03-26 04:07] LABS: Bacteria Urine None Seen (None Seen); Hyaline Casts Urine 0-2 /LPF (0-2); RBC Urine 0-2 /HPF (0-2); Squamous Epithelial Cell Urine 0-2 /HPF (0-2); WBC Urine 0-5 /HPF (0-5)
[2022-03-26 04:10] LABS: Amphetamine Screen Urine Not Detected (Not Detect); Barbiturates, Urine Not Detected (Not Detect); Benzodiazepines Screen Urine Not Detected (Not Detect); Cannabinoid Screen Urine Not Detected (Not Detect); Cocaine Screen Urine Not Detected (Not Detect); Fentanyl, urine Not Detected (Not Detect); Opiate Screen Urine Not Detected (Not Detect); Phencyclidine Screen Urine Not Detected (Not Detect)
--- NOTE | 2022-03-26 05:06 | PC.NURSE ---
this rn medicated pt according to jun. pt reporting pain still at 01/[address] bravo. awaiting additional orders
[2022-03-26] MEDS: traMADoL HCL 50 MG TABLET PO (05:11)
--- NOTE | 2022-03-26 05:14 | PC.NURSE ---
pt medicated according to mar
[2022-03-26 05:41] VITALS: BP 117/72; PULSE 82; RESP 16; TEMP 36.8; O2SAT 96
== END 2022-03-26 06:16 | disposition home or self-care (01) ==
PROVIDERS: Emergency Provider Emergency Medicine; PCP Internal Medicine
DX: S52.502A Unspecified fracture of the lower end of left radius, initial encounter for closed fracture (principal); W17.89XA Other fall from one level to another, initial encounter; N39.0 Urinary tract infection, site not specified; M18.12 Unilateral primary osteoarthritis of first carpometacarpal joint, left hand; I10 Essential (primary) hypertension; E11.9 Type 2 diabetes mellitus without complications; Z20.822 Contact with and (suspected) exposure to COVID-19; Y93.89 Activity, other specified; Y92.031 Bathroom in apartment as the place of occurrence of the external cause; Y99.9 Unspecified external cause status; Z79.82 Long term (current) use of aspirin; Z79.84 Long term (current) use of oral hypoglycemic drugs; Z79.899 Other long term (current) drug therapy
CPT/HCPCS: 29125; 36415; 73070; 73110; 80048; 80307; 81001; 81003; 84484; 85025; 85610; 87635; 93005; 99284; 99285

== ENCOUNTER 2022-03-30 07:54 | Outpatient (REF) | payer OTHER, SELFPAY ==
--- NOTE | ~2022-03-30 | XR_ITS ---
EXAMINATION: XR WRIST, LEFT CLINICAL INFORMATION: Distal radial fracture. Follow-up. COMPARISON: Left wrist radiographs 03/26/2022 TECHNIQUE: Left wrist is imaged in 3 views. FINDINGS: There is known comminuted fracture distal left radius with probable intra-articular extension. Alignment is similar to previous exam. Ulnar variance is neutral. There is subtle nondisplaced fracture noted on current exam at base ulnar styloid, not well visualized on prior exam. There is an incidental corticated ossicle distal to the ulnar styloid. Again, there is arthropathy in the wrist, greatest lateral side. There are also osteoarthritic changes interphalangeal joints. XR/XR wrist LT min 3V IMPRESSION: 1. Comminuted fracture distal left radius, or alignment similar to previous exam. 2. Nondisplaced fracture base ulnar styloid.
== END 2022-03-30 07:55 | disposition home or self-care (01) ==
LOC: HO.HOSX 07:54
PROVIDERS: Visit Provider Physician Assistant
DX: S52.502A Unspecified fracture of the lower end of left radius, initial encounter for closed fracture (principal)
CPT/HCPCS: 29125; 73110; 99202

== ENCOUNTER 2022-04-01 11:50 | Day surgery (SDC) | payer OTHER, SELFPAY ==
[2022-04-01] VITALS (7 sets, daily range): BP systolic 116–141; BP diastolic 55–70; PULSE 69–90; RESP 14–18; TEMP 36.4–37.1; O2SAT 92–96; BMI 41.9
--- NOTE | ~2022-04-01 | FL_ITS ---
EXAMINATION: XR FLUOROSCOPY WITH IMAGES CLINICAL INFORMATION: Comminuted fracture distal left radius. COMPARISON: Left wrist 03/30/2022. TECHNIQUE: Fluoroscopy Supervised By: Rosario Villar. Fluoroscopy Time: 59.92 seconds. Cumulative Dose: 1.54 mGy. DAP: 0.0931 Gy-cm2. Images: 4. FINDINGS: There are 4 digital images obtained in the OR revealing a volar plate and screws stabilizing distal radial comminuted fracture in alignment. The soft tissues unremarkable. FL/FL guidance in OR IMPRESSION: Open reduction internal fixation of distal radial comminuted fracture with volar plate and screws.
[2022-04-01] MEDS: Lactated Ringers 1,000 ML 100 ML IVCONT (12:53)
--- NOTE | 2022-04-01 14:24 | HO.ANESPROP2 ---
HPI - Anesthesia Eval Consult details Narrative: Left wrist fracture PMFSH Active Problems Active Problems: All Active Problems (Updated 04/01/22 @ 12:54 by Jackelyn Healy, RN) Cellulitis (Acute) Well woman exam with routine gynecological exam (Acute) Hidradenitis suppurativa (Acute) Primary osteoarthritis of right knee (Acute) Rotator cuff impingement syndrome of left shoulder (Acute) Rotator cuff impingement syndrome of right shoulder (Acute) Acute diarrhea (Acute) Abdominal cramping (Acute) Colon cancer screening (Acute) Tubulovillous adenoma of colon (Acute) Colitis determined by colorectal biopsy (Acute) Irritable bowel syndrome with diarrhea (Acute) Abdominal bloating (Acute) GERD (gastroesophageal reflux disease) (Acute) Carpal tunnel syndrome of right wrist (Acute) Arthritis of carpometacarpal (CMC) joint of left thumb (Acute) Heart palpitations (Acute) Fracture of left distal radius (Acute) Subcutaneous abscess (Acute) Past Medical History Medical History (Updated 04/01/22 @ 12:54 by Jackelyn Healy, RN) Abdominal cramping Arthritis COVID Epigastric pain Fibromyalgia GERD (gastroesophageal reflux disease) Hx of fracture of wrist Hx of sleep apnea Hx of vertigo Hypertension Morbid obesity Osteoarthritis Pre-diabetes Primary osteoarthritis of knees, bilateral Subcutaneous abscess Family History Family History Father Stomach cancer Brother Stomach problems Family history of problems with anesthesia: No Surgical History Surgical History (Updated 04/01/22 @ 12:08 by Jackelyn Healy RN) History of cholecystectomy (~2018) Hx of colonoscopy Hx of tubal ligation History of Problems with Anesthesia: No Social History Social History Household Members: Family Housing: Apartment Do you presently have visiting nurse or other home services: No Alcohol intake: never Patient Tobacco Use Status: Former Tobacco user Quit Date: 30 yrs ago Second Hand Smoke Exposure: No Use of substances other than those prescribed or required for medical reasons: No Are you DNR?: No Advance Directives: Yes Advance Directives Information Provided: Yes Advance Directives on File: Yes Advance Directives Date on File: 01/28/20 service: No Current occupational status: unemployed Meds Allergies Allergy/AdvReac Type Severity Reaction Status Date / Time No Known Allergies Allergy Verified 03/30/22 08:27 [No Known Allergies*] Active Medications: Current Medications Lactated Ringer's (Lr) 1,000 mls @ 100 mls/hr IVCONT .Q10H ALVARADO Last Admin: 04/01/22 12:53 Dose: 100 mls/hr Home Medications Medication Instructions Recorded Confirmed Last Taken Type amlodipine 10 mg tablet (Norvasc) 10 mg PO DAILY 01/23/20 04/01/22 01/22/20 08:00 History citalopram 20 mg tablet (Celexa) 20 mg PO DAILY 01/23/20 04/01/22 01/22/20 08:00 History clonazepam 0.5 mg tablet (Klonopin) 0.5 mg PO BEDTIME 01/23/20 04/01/22 01/21/20 21:00 History diclofenac sodium 75 mg 75 mg PO BID 01/23/20 04/01/22 01/22/20 08:00 History tablet,delayed release duloxetine 60 mg capsule,delayed 60 mg PO DAILY 01/23/20 04/01/22 01/22/20 08:00 History release (Cymbalta) amitriptyline 25 mg tablet 25 mg PO BEDTIME 01/26/22 04/01/22 Unknown History ammonium lactate 12 % lotion (Skin 12 ea topical DAILY 01/26/22 04/01/22 Unknown History Treatment) aspirin 81 mg tablet,delayed 81 mg PO DAILY 01/26/22 04/01/22 03/26/22 History release (Adult Low Dose Aspirin) cetirizine 10 mg tablet (Zyrtec) 10 mg PO DAILY 01/26/22 04/01/22 Unknown History cholecalciferol (vitamin D3) 50 50 mcg PO DAILY 01/26/22 04/01/22 Unknown History mcg (2,000 unit) capsule (Vitamin D3) fluticasone propionate 110 2 puff inhalation BID 01/26/22 04/01/22 Unknown History mcg/actuation HFA aerosol inhaler (Flovent HFA) gabapentin 600 mg tablet 600 mg PO BID 01/26/22 04/01/22 Unknown History (Neurontin) hydralazine 25 mg tablet 25 mg PO BID 01/26/22 04/01/22 Unknown History hydrochlorothiazide 25 mg tablet 25 mg PO DAILY 01/26/22 04/01/22 Unknown History losartan 100 mg tablet (Cozaar) 100 mg PO DAILY 01/26/22 04/01/22 Unknown History meclizine 25 mg tablet (Dramamine 25 mg PO TID PRN Dizziness 01/26/22 04/01/22 Unknown History (meclizine)) melatonin 3 mg tablet 3 - 6 mg PO BEDTIME PRN Insomnia 01/26/22 04/01/22 Unknown History metformin 500 mg tablet 500 mg PO BID 01/26/22 04/01/22 Unknown History baclofen 20 mg tablet 20 mg PO BID 03/31/22 04/01/22 Unknown History lancets 33 gauge (TRUEplus Lancets) #100 ea 03/31/22 04/01/22 Unknown History cholestyramine (with sugar) 4 gram 4 g PO DAILY 04/01/22 04/01/22 Unknown History oral powder (Questran) ibuprofen 600 mg tablet (IBU) 600 mg PO TID PRN fever or pain 04/01/22 04/01/22 Unknown History pantoprazole 40 mg tablet,delayed 40 mg PO DAILY 04/01/22 04/01/22 Unknown History release (Protonix) Exam Exam Date and Time: April 01, 2022 1424 Height,Weight and Vital Signs: Height 5 ft 6 in Weight 117.934 kg Last Vital Signs Temp 98.8 F 04/01/22 12:35 Pulse 81 04/01/22 12:35 Resp 17 04/01/22 12:35 BP 116/55 L 04/01/22 12:35 Pulse Ox 94 04/01/22 12:35 O2 Del Method 04/01/22 12:35 Pertinent Lab Results Pertinent Lab Results: Laboratory Tests 04/01/22 12:46 POC Glucose 113 Airway Mallampati Class: II TM Dist: >3cm Neck ROM: Full Loose/Missing/Broken Teeth: No Heart: RRR Lungs: CTA Assessment and Plan Assessment Anesthesia Assessment: Anesthesia Plan Discussed and Chart Reviewed Final Anesthetic Review Family History of Problems with Anesthesia: No History of Problems with Anesthesia: No NPO: Yes ASA Class: III Final Preanesthetic Review: No Changes in Pt Med Stat, Meds/Allgs Chart Reviewed, Consent Obtained/Reviewed and Anes Risks/Benef Reviewed Patient Risk: Intermediate Procedure Risk: Intermediate Anesthetic Plan Anesthetic Plan: GA and Regional Block Disposition: Standard PACU
--- NOTE | 2022-04-01 15:25 | MHC.SHP ---
Pre-Procedural Eval Section A Date of Service: 04/01/22 The patient is an INPATIENT: No Changes since office visit: No Cold of Flu in the past 2 weeks, No New Medical Problems, No Changes in Medication and No Patient answered all questions The History & Physical has been completed within 30 days and I have reviewed it.: Yes Section B Chief Complaint: Unspecified fracture of the lower end of left radi Allergies: Allergies Allergy/AdvReac Type Severity Reaction Status Date / Time No Known Allergies Allergy Verified 03/30/22 08:27 [No Known Allergies*] Plan I have reviewed the history and physical and performed a pertinent physical examination on my patient. No changes have occurred unless specified. Time Spent With Patient Time: Total time managing care of this patient today ____ minutes.
--- NOTE | 2022-04-01 15:25 | W.PM.OPN ---
Operative Note Operative Note Date of Service: 04/01/22 Narrative: Operative Note Narrative: Preop diagnosis: 1. Left intra-articular Distal radius fracture Postop diagnosis: Same Procedure: 1. Left Distal radius fracture open reduction internal fixation , 2 part intra-articular Surgeon: Rosario Villar MD Anesthesia: General anesthesia plus regional block Findings: distal radius fracture Implants: A 3 hole Accu Med standard volar locking plate, with 4 X 2.3 mm locking pegs/screws, 1 X 2.3 mm nonlocking screw, and 3 x 3.5 mm cortical screws Tourniquet time: 38 minutes EBL: 5.0 ml Specimen: None Drains: None Complications: None Disposition: Brought to the recovery room in stable condition Plan: Follow-up in 10-14 days for wound check, suture removal and postop radiographs The patient will be placed in either a a volar wrist splint. Encouraged no lifting of anything heavier than a cell phone. Please encourage active and passive range of motion of the digits. Follow-up at 4-5 weeks postop for repeat radiographs. Indications: The patient is a 56 year old woman with a left distal radius fracture . The risks and benefits of operative treatment, including but not limited to risk of damage to blood vessels, nerves, tendons, infection, recurrence, persistent pain or numbness, incomplete resolution of preoperative symptoms, or need for further surgery were discussed with the patient and they wished to proceed with surgery. Procedure: Once consent was obtained patient was brought back to the operating suite and placed in the operating table in a supine position. A regional block was performed by the anesthesia team. Perioperative antibiotics and anesthesia was administered by the anesthesia team. A tourniquet was applied to the proximal aspect of the left upper extremity and the limb was prepped and draped in a standard surgical fashion. The limb was elevated exsanguinated with Esmarch bandage and the tourniquet inflated to 250 mm of mercury for a total tourniquet time of 38 minutes. The FluoroScan was used throughout the case to assess our reduction, and facilitate implant placement. A gentle closed reduction was 1st performed on the patient's left distal radius fracture. Was assessed radiographically before proceeding with the reduction internal fixation. I then made an 8 cm longitudinal incision over the distal aspect of the flexor carpi radialis tendon. The incision was made through the skin to the subcutaneous tissue using a 15. Blade. Then carefully dissected down to flexor carpi radialis tendon she tenotomy scissors. The FCR tendon sheath was then incised longitudinally using tenotomy scissors under direct visualization. The FCR tendon was then retracted ulnarly. I then made a longitudinal incision in the volar forearm fascia through the floor of FCR tendon sheath using tenotomy scissors under direct visualization. I identified the interval between the radial artery and the flexor tendons. This interval was developed further with my index finger, releasing some of the muscular fibers of the flexor pollicis longus. A dull weatlander retractor was then placed. I then created an ulnarly based flap of the pronator quadratus by releasing the radial and distal edges using a 15. Blade. A Hernandez elevator was used to elevate the pronator quadratus from the volar surface of the distal radius. This then revealed to us our distal radius fracture. An open reduction was then performed on our distal radius fracture. there was an obliquely oriented fracture passing through the distal radial articular surface and then extending to the ulnar aspect of the metaphysis. An open reduction was performed. I then placed a standard 3 hole Accu Med volar locking plate on the volar surface of the distal radius. I placed a single K-wire through the distal aspect of the plate and into the distal radius. This was assessed using fluoroscopic images. I was satisfied with the placement of our plate. I then placed a single 2.3 mm cortical screw through the ulnar most hole to help reduce this fracture fragment to the plate. I then placed 4x 2.3 mm locking screws/pegs in the distal aspect of the plate and distal radius by 1st drilling bicortically with a 2.0mm drill bit, measuring with a depth gauge, and placing the appropriate length locking screws/pegs. The placement of our plate and screws was then assessed again using fluoroscopic images. The once satisfied with the placement of the volar locking plate and screws on the distal aspect of the distal radius, the plate was then reduced to the shaft of the radius. I then placed 3 3.5 mm cortical screws to the proximal aspect of the plate and into the shaft of the radius. This was done by 1st drilling bicortically with a 2.8 mm drill bit, measuring with a depth gauge, and placing the appropriate length screw. Final radiographs were then obtained. The DRUJ was assessed and found to be stable on exam. I was satisfied with our reduction and placement of all implants. At this point the wound was irrigated with normal saline. The pronator quadratus was reduced back over the volar locking plate using some 3-0 Vicryl suture material. The tourniquet was then deflated and hemostasis was obtained with a brief period of local pressure and bipolar monopolar electrocautery. The subcutaneous layer was then reapproximated using some 4-0 Vicryl suture, and the skin edges were reapproximated using some 5 0 Prolene suture. The wound was then infiltrated with some 1% lidocaine with epinephrine postop pain control. A sterile dressing and a short dorsal splint allowing for active flexion and extension of the digits was applied. The patient appears to have tolerated the procedure well and with no complications. All digits were well vascularized conclusion of the case.
== END 2022-04-01 19:18 ==
LOC: HO.SSS 11:51
PROVIDERS: PCP Internal Medicine; Visit Provider Orthopaedic Surgery
PROC: (CPT 25608; principal; 2022-04-01 13:30)
DX: S52.502A Unspecified fracture of the lower end of left radius, initial encounter for closed fracture (principal); M25.532 Pain in left wrist; R42 Dizziness and giddiness; W18.39XA Other fall on same level, initial encounter; Y93.E1 Activity, personal bathing and showering; Y92.002 Bathroom of unspecified non-institutional (private) residence as the place of occurrence of the external cause; Y99.8 Other external cause status; M79.7 Fibromyalgia; M15.9 Polyosteoarthritis, unspecified; I10 Essential (primary) hypertension; E66.01 Morbid (severe) obesity due to excess calories; Z68.41 Body mass index [BMI] 40.0-44.9, adult; R73.03 Prediabetes; Z79.84 Long term (current) use of oral hypoglycemic drugs; Z79.899 Other long term (current) drug therapy; Z79.82 Long term (current) use of aspirin; Z87.891 Personal history of nicotine dependence; Z86.16 Personal history of COVID-19
CPT/HCPCS: 25608; 82947; C1713; C1769; J0690; J1100; J2250; J2405; J2795; J3010

== ENCOUNTER 2022-04-12 09:02 | Outpatient (REF) | payer OTHER, SELFPAY ==
--- NOTE | ~2022-04-12 | XR_ITS ---
EXAMINATION: XR WRIST, LEFT CLINICAL INFORMATION: Pain COMPARISON: 03/30/2022 TECHNIQUE: PA, lateral, and oblique views of the left wrist. FINDINGS: Plate, multiple screws across fractures of the distal radius. The fracture of the ulna is undisplaced and remained stable. Narrowing of intercarpal and carpometacarpal joint suggest underlying degenerative osteoarthritis. Bone alignments otherwise are restored. XR/XR wrist LT min 3V IMPRESSION: * ORIF distal radial fracture. * Stable Nondisplaced ulnar fracture. * Narrowing of intercarpal and carpometacarpal joint suggest underlying degenerative osteoarthritis.
== END 2022-04-12 09:03 | disposition home or self-care (01) ==
LOC: HO.HOSX 09:02
PROVIDERS: Visit Provider Orthopaedic Surgery
DX: M25.532 Pain in left wrist (principal)
CPT/HCPCS: 73110

== ENCOUNTER → 2022-04-13 12:34 | Outpatient (BNVA) | payer OTHER, SELFPAY | PROVIDERS: Visit Provider Orthopaedic Surgery | DX: M25.532 Pain in left wrist (principal) ==

== ENCOUNTER → 2022-04-27 15:40 | Outpatient (BNVA) | payer OTHER, SELFPAY | PROVIDERS: PCP Internal Medicine; Visit Provider Urology | DX: N32.81 Overactive bladder (principal); N39.46 Mixed incontinence | CPT/HCPCS: 99202 ==

== ENCOUNTER 2022-05-04 15:38 | Outpatient (REF) | payer OTHER, SELFPAY | END 2022-05-04 15:39 | disposition home or self-care (01) | LOC: HO.HOSX 15:38 | PROVIDERS: Visit Provider Orthopaedic Surgery | DX: Z13.89 Encounter for screening for other disorder (principal) ==

== ENCOUNTER 2022-05-06 16:55 | Outpatient (REF) | payer OTHER, SELFPAY | END 2022-05-06 16:56 | disposition home or self-care (01) | LOC: HO.HOSX 16:55 | PROVIDERS: Visit Provider Orthopaedic Surgery | DX: Z13.89 Encounter for screening for other disorder (principal) ==

== ENCOUNTER 2022-05-10 09:40 | Outpatient (REF) | payer OTHER, SELFPAY ==
--- NOTE | ~2022-05-10 | XR_ITS ---
EXAMINATION: XR WRIST, LEFT CLINICAL INFORMATION: Pain in the left wrist. COMPARISON: Left wrist 04/13/2022. TECHNIQUE: PA, lateral, and oblique views of the left wrist. FINDINGS: There is a volar plate and screws stabilizing distal radial fracture in alignment. Minimally displaced distal ulnar fracture is unchanged. There is mild soft tissue swelling around the wrist. XR/XR wrist LT min 3V IMPRESSION: Stable distal radial fracture and volar plate and screws with fracture in alignment and unchanged to 04/13/2022.
== END 2022-05-10 09:41 | disposition home or self-care (01) ==
LOC: HO.HOSX 09:40
PROVIDERS: Visit Provider Orthopaedic Surgery
DX: S52.502D Unspecified fracture of the lower end of left radius, subsequent encounter for closed fracture with routine healing (principal); R20.0 Anesthesia of skin; R20.2 Paresthesia of skin; X58.XXXD Exposure to other specified factors, subsequent encounter
CPT/HCPCS: 73110; 99212

== ENCOUNTER 2022-05-12 09:59 | Outpatient (REF) | payer OTHER, SELFPAY ==
--- NOTE | 2022-05-12 10:03 | EMG_ITS ---
Bilateral median and ulnar motor and sensory studies were performed, bilateral radial sensory studies were performed and paraspinal muscles were tested. IMPRESSION: This study revealed mild bilateral slowing of median sensory components but otherwise no significant abnormality. MD KEEGAN Nguyen/BRAIN / [id number]
== END 2022-05-12 10:00 | disposition home or self-care (01) ==
LOC: HO.NEURO 09:59
PROVIDERS: Visit Provider Orthopaedic Surgery
DX: R20.0 Anesthesia of skin (principal); R20.2 Paresthesia of skin
CPT/HCPCS: 95886; 95911

== ENCOUNTER 2022-05-24 09:30 | Outpatient (RCR) | payer OTHER, SELFPAY ==
--- NOTE | 2022-05-18 15:10 | MHC.OT.EP ---
[address] [phone] Occupational Therapy Plan of Care Date of Evaluation: 05/18/22 Diagnosis: Left distal radius fracture Pain Location: Pain left thumb and radial wrist 10/10 Best: 8/10 Pain Score: 10 Pain Scale Used: Numeric (0 - 10) Aggravating Factors: Grasping, thumb movement Alleviating Factors: None reported Assessment: Chelsi is a 56 year old right hand dominant Bulgarian speaking woman, referred S/P left distal radius ORIF, DOS: 04/01/22. She continues to have some pain, mostly in the mornings and stiffness with wrist flexion. She also complains of numbness and tingling in her thumb and index fingers, EMG revealed mild bilateral slowing of sensory components. Pt. was educated on scar management technique and ROM exercises. An 84% limitation is reported per the Quick DASH assessment. Pt would benefit from skilled OT tx to address noted barriers and assist in return to PLOF. Frequency and Duration: The patient will be seen 2x/wk for 6 weeks Short Term Goals: Decrease left wrist pain <5/10 IND with HEP and scar mgt Improve wrist flexion by 10 degrees Gross grasp >10# Usp Goals: Pain free with BADL's/IADLs Improve left wrist AROM to WNL's Gross grasp >20# Quick DASH <35% Treatment Plan: Therapeutic Exercise Therapeutic Activity Home Exercise Program Patient Education Desensitization/Sensory Re-ed Edema Control Paraffin Fluidotherapy MHP Joint Mobilization Soft Tissue Mobilization Kinesiotaping Electronically Signed By: Michelle Arteaga MS OTR/L Please Sign and return to therapist. Thank you once again for your referral.
--- NOTE | 2022-06-21 12:14 | MHC.OT.DC ---
[address] [phone] F: [phone] Occupational Therapy Discharge Note Patient Name: Chelsi Amanda Provider: Rosario Villar Diagnosis: Left distal radius fracture Date of Surgery: 04/01/23 Date of Evaluation: 05/18/22 Date of Discharge: 06/21/22 Treatments to Date: 2 No Shows to Date: 3 Discharge Status: Visit Non-compliance Discharge Summary: 05/24: Pt initially stating 10/10 pain, reduced to 6/10 post session following manual therapy and thermal modalities. Improved active thumb extension post session. Cont per plan. 06/21: Pt. failed to follow up with future appointments and no-showed last 3 appointments. Pt. is being discharged from skilled OT services. Electronically Signed By: Michelle Arteaga MS OTR/L Reviewed/agree with student documentation: Therapist: Please Sign and return to therapist, thank you for your referral.
== END 2022-06-21 12:13 | disposition home or self-care (01) ==
LOC: HO.OT 09:30
PROVIDERS: PCP Internal Medicine; Visit Provider Orthopaedic Surgery
DX: S52.502D Unspecified fracture of the lower end of left radius, subsequent encounter for closed fracture with routine healing (principal)
CPT/HCPCS: 97110; 97140; 97165

== ENCOUNTER 2022-08-11 06:19 | Outpatient (REF) | payer OTHER, MEDICAID, SELFPAY ==
--- NOTE | ~2022-08-11 | XR_ITS ---
EXAMINATION: XR SHOULDER, BILATERAL CLINICAL INFORMATION: Pain. COMPARISON: Previous x-rays October 2019. TECHNIQUE: 3 views of each shoulder. FINDINGS: Right: Bone alignment is normal. No fracture or dislocation. Arthritis at the glenohumeral and acromioclavicular joints. Large undersurface acromial osteophyte. Soft tissues are normal. Left: Bone alignment is normal. No fracture or dislocation. There is arthritis at the glenohumeral and acromioclavicular joints. There is a periarticular soft tissue ossification seen on the Y view. XR/XR shoulder LT min 2V IMPRESSION: Bilateral arthritis, right greater than left.
--- NOTE | ~2022-08-11 | XR_ITS ---
EXAMINATION: XR SHOULDER, BILATERAL CLINICAL INFORMATION: Pain. COMPARISON: Previous x-rays October 2019. TECHNIQUE: 3 views of each shoulder. FINDINGS: Right: Bone alignment is normal. No fracture or dislocation. Arthritis at the glenohumeral and acromioclavicular joints. Large undersurface acromial osteophyte. Soft tissues are normal. Left: Bone alignment is normal. No fracture or dislocation. There is arthritis at the glenohumeral and acromioclavicular joints. There is a periarticular soft tissue ossification seen on the Y view. XR/XR shoulder RT min 2V IMPRESSION: Bilateral arthritis, right greater than left.
== END 2022-08-11 06:20 | disposition home or self-care (01) ==
LOC: HO.HOSX 06:19
PROVIDERS: Visit Provider Physician Assistant
DX: M75.41 Impingement syndrome of right shoulder (principal); M75.42 Impingement syndrome of left shoulder
CPT/HCPCS: 20610; 73030; 99202; J1020

== ENCOUNTER 2022-08-25 10:53 | Day surgery (SDC) | payer OTHER, MEDICAID, SELFPAY ==
[2022-06-17 10:28] VITALS: BMI 43.7
--- NOTE | 2022-06-21 12:16 | HO.ANESPROP2 ---
HPI - Anesthesia Eval Consult details Narrative: 56yo F for Upper Endoscopy and Colonoscopy [facility] Active Problems Active Problems: All Active Problems (Updated 04/27/22 @ 16:20 by Nhan Dunham MD) Cellulitis (Acute) Well woman exam with routine gynecological exam (Acute) Hidradenitis suppurativa (Acute) Primary osteoarthritis of right knee (Acute) Rotator cuff impingement syndrome of left shoulder (Acute) Rotator cuff impingement syndrome of right shoulder (Acute) Acute diarrhea (Acute) Abdominal cramping (Acute) Colon cancer screening (Acute) Tubulovillous adenoma of colon (Acute) Colitis determined by colorectal biopsy (Acute) Irritable bowel syndrome with diarrhea (Acute) Abdominal bloating (Acute) GERD (gastroesophageal reflux disease) (Acute) Carpal tunnel syndrome of right wrist (Acute) Arthritis of carpometacarpal (CMC) joint of left thumb (Acute) Heart palpitations (Acute) Fracture of left distal radius (Acute) Distal radius fracture, left (Acute) Overactive bladder (Acute) Urge incontinence (Acute) Stress incontinence (Acute) Subcutaneous abscess (Acute) Past Medical History Medical History Abdominal cramping Arthritis COVID Epigastric pain Fibromyalgia GERD (gastroesophageal reflux disease) Hx of fracture of wrist Hx of sleep apnea Hx of vertigo Hypertension Microscopic hematuria Morbid obesity Osteoarthritis Pre-diabetes Primary osteoarthritis of knees, bilateral Stress incontinence Subcutaneous abscess Urgency incontinence Family History Family History Father Stomach cancer Brother Stomach problems Family history of problems with anesthesia: No Surgical History Surgical History (Updated 06/17/22 @ 10:13 by Nayeli Reid RN) History of cholecystectomy (~2019) History of open reduction and internal fixation (ORIF) procedure Hx of colonoscopy Hx of tubal ligation History of Problems with Anesthesia: No Social History Social History Household Members: Family Housing: Apartment Do you presently have visiting nurse or other home services: No Alcohol intake: never Patient Tobacco Use Status: Former Tobacco user Quit Date: 30 yrs ago Second Hand Smoke Exposure: No Advance Directives Date on File: 01/28/20 service: No Current occupational status: unemployed Meds Allergies Allergy/AdvReac Type Severity Reaction Status Date / Time No Known Allergies Allergy Verified 05/10/22 09:19 [No Known Allergies*] Home Medications Medication Instructions Recorded Confirmed Last Taken Type amlodipine 10 mg tablet (Norvasc) 10 mg PO DAILY 01/23/20 06/17/22 01/22/20 08:00 History citalopram 20 mg tablet (Celexa) 20 mg PO DAILY 01/23/20 06/17/22 01/22/20 08:00 History clonazepam 0.5 mg tablet (Klonopin) 0.5 mg PO BEDTIME 01/23/20 06/17/22 01/21/20 21:00 History diclofenac sodium 75 mg 75 mg PO BID 01/23/20 06/17/22 01/22/20 08:00 History tablet,delayed release duloxetine 60 mg capsule,delayed 60 mg PO DAILY 01/23/20 06/17/22 01/22/20 08:00 History release (Cymbalta) amitriptyline 25 mg tablet 25 mg PO BEDTIME 01/26/22 06/17/22 Unknown History ammonium lactate 12 % lotion (Skin 12 ea topical DAILY 01/26/22 04/27/22 Unknown History Treatment) aspirin 81 mg tablet,delayed 81 mg PO DAILY 01/26/22 06/17/22 03/26/22 History release (Adult Low Dose Aspirin) cetirizine 10 mg tablet (Zyrtec) 10 mg PO DAILY 01/26/22 06/17/22 Unknown History cholecalciferol (vitamin D3) 50 50 mcg PO DAILY 01/26/22 06/17/22 Unknown History mcg (2,000 unit) capsule (Vitamin D3) fluticasone propionate 110 2 puff inhalation BID 01/26/22 06/17/22 Unknown History mcg/actuation HFA aerosol inhaler (Flovent HFA) gabapentin 600 mg tablet 600 mg PO BID 01/26/22 06/17/22 Unknown History (Neurontin) hydralazine 25 mg tablet 25 mg PO BID 01/26/22 06/17/22 Unknown History hydrochlorothiazide 25 mg tablet 25 mg PO DAILY 01/26/22 06/17/22 Unknown History losartan 100 mg tablet (Cozaar) 100 mg PO DAILY 01/26/22 06/17/22 Unknown History meclizine 25 mg tablet (Dramamine 25 mg PO TID PRN Dizziness 01/26/22 06/17/22 Unknown History (meclizine)) melatonin 3 mg tablet 3 - 6 mg PO BEDTIME PRN Insomnia 01/26/22 06/17/22 Unknown History metformin 500 mg tablet 500 mg PO BID 01/26/22 06/17/22 Unknown History baclofen 20 mg tablet 20 mg PO BID 03/31/22 06/17/22 Unknown History lancets 33 gauge (TRUEplus Lancets) #100 ea 03/31/22 04/27/22 Unknown History cholestyramine (with sugar) 4 gram 4 g PO DAILY 04/01/22 06/17/22 Unknown History oral powder (Questran) ibuprofen 600 mg tablet (IBU) 600 mg PO TID PRN fever or pain 04/01/22 06/17/22 Unknown History pantoprazole 40 mg tablet,delayed 40 mg PO DAILY 04/01/22 06/17/22 Unknown History release (Protonix) topiramate 50 mg tablet 0.5 - 1 tab PO BID PRN Anxiety 06/17/22 06/17/22 Unknown History Exam Exam Date and Time: June 21, 2022 1216 Height,Weight and Vital Signs: Height 5 ft 6 in Weight 122.924 kg Pertinent Lab Results Pertinent Lab Results: Laboratory Tests 03/26/22 03/26/22 03:03 03:03 WBC 8.2 Hgb 11.8 L Hct 36.6 L Plt Count 246 Sodium 139 Potassium 3.7 Chloride 105 Carbon Dioxide 27 BUN 17 H Creatinine 0.68 Narrative Narrative: EKG 03/2022 Vent. Rate : 074 BPM ? ? Atrial Rate : 074 BPM ?? P-R Int : 168 ms? QRS Dur : 094 ms ? ? QT Int : 410 ms ? ? ? P-R-T Axes : 025 019 030 degrees ?? QTc Int : 455 ms ? Normal sinus rhythm Normal ECG When compared with ECG of 22-DEC-2021 07:29, No significant change was found Assessment and Plan Assessment Anesthesia Assessment: Chart Reviewed Final Anesthetic Review Family History of Problems with Anesthesia: No History of Problems with Anesthesia: No
[2022-08-23 15:39] VITALS: BMI 42.0
--- NOTE | 2022-08-24 12:30 | HO.ANESPROP2 ---
Documented by User: Garima Andres NP 08/24/22 12:32 HPI - Anesthesia Eval Consult details Narrative: 57yo F for Upper Endoscopy and Colonoscopy s/p distal radial fx repair 03/2022 with [facility], [facility] Active Problems Active Problems: All Active Problems (Updated 04/27/22 @ 16:20 by Nhan Dunham MD) Cellulitis (Acute) Well woman exam with routine gynecological exam (Acute) Hidradenitis suppurativa (Acute) Primary osteoarthritis of right knee (Acute) Rotator cuff impingement syndrome of left shoulder (Acute) Rotator cuff impingement syndrome of right shoulder (Acute) Acute diarrhea (Acute) Abdominal cramping (Acute) Colon cancer screening (Acute) Tubulovillous adenoma of colon (Acute) Colitis determined by colorectal biopsy (Acute) Irritable bowel syndrome with diarrhea (Acute) Abdominal bloating (Acute) GERD (gastroesophageal reflux disease) (Acute) Carpal tunnel syndrome of right wrist (Acute) Arthritis of carpometacarpal (CMC) joint of left thumb (Acute) Heart palpitations (Acute) Fracture of left distal radius (Acute) Distal radius fracture, left (Acute) Overactive bladder (Acute) Urge incontinence (Acute) Stress incontinence (Acute) Subcutaneous abscess (Acute) Past Medical History Medical History Abdominal cramping Arthritis COVID Epigastric pain Fibromyalgia GERD (gastroesophageal reflux disease) Hx of fracture of wrist Hx of sleep apnea Hx of vertigo Hypertension Microscopic hematuria Morbid obesity Osteoarthritis Pre-diabetes Primary osteoarthritis of knees, bilateral Stress incontinence Subcutaneous abscess Urgency incontinence Family History Family History Father Stomach cancer Brother Stomach problems Family history of problems with anesthesia: No Surgical History Surgical History History of cholecystectomy (~2019) History of open reduction and internal fixation (ORIF) procedure Hx of colonoscopy Hx of tubal ligation History of Problems with Anesthesia: No Social History Social History Household Members: Family Housing: Apartment Do you presently have visiting nurse or other home services: No Alcohol intake: never Patient Tobacco Use Status: Former Tobacco user Quit Date: 30 yrs ago Tobacco use type: Cigarette Second Hand Smoke Exposure: No Use of substances other than those prescribed or required for medical reasons: No Are you DNR?: No Advance Directives: No Advance Directives Information Provided: Yes Advance Directives Date on File: 01/28/20 service: No Current occupational status: unemployed Meds Allergies Allergy/AdvReac Type Severity Reaction Status Date / Time No Known Allergies Allergy Verified 08/25/22 12:45 [No Known Allergies*] Home Medications Medication Instructions Recorded Confirmed Last Taken Type amlodipine 10 mg tablet (Norvasc) 10 mg PO DAILY 01/23/20 08/25/22 08/25/22 08:30 History citalopram 20 mg tablet (Celexa) 20 mg PO DAILY 01/23/20 08/11/22 01/22/20 08:00 History clonazepam 0.5 mg tablet (Klonopin) 0.5 mg PO BEDTIME 01/23/20 08/11/22 01/21/20 21:00 History diclofenac sodium 75 mg 75 mg PO BID 01/23/20 08/11/22 01/22/20 08:00 History tablet,delayed release duloxetine 60 mg capsule,delayed 60 mg PO DAILY 01/23/20 08/11/22 01/22/20 08:00 History release (Cymbalta) amitriptyline 25 mg tablet 25 mg PO BEDTIME 01/26/22 08/11/22 Unknown History ammonium lactate 12 % lotion (Skin 12 ea topical DAILY 01/26/22 08/11/22 Unknown History Treatment) aspirin 81 mg tablet,delayed 81 mg PO DAILY 01/26/22 08/25/22 08/24/22 History release (Adult Low Dose Aspirin) cetirizine 10 mg tablet (Zyrtec) 10 mg PO DAILY 01/26/22 08/11/22 Unknown History cholecalciferol (vitamin D3) 50 50 mcg PO DAILY 01/26/22 08/11/22 Unknown History mcg (2,000 unit) capsule (Vitamin D3) fluticasone propionate 110 2 puff inhalation BID 01/26/22 08/11/22 Unknown History mcg/actuation HFA aerosol inhaler (Flovent HFA) gabapentin 600 mg tablet 600 mg PO BID 01/26/22 08/11/22 Unknown History (Neurontin) hydralazine 25 mg tablet 25 mg PO BID 01/26/22 08/11/22 Unknown History hydrochlorothiazide 25 mg tablet 25 mg PO DAILY 01/26/22 08/11/22 Unknown History losartan 100 mg tablet (Cozaar) 100 mg PO DAILY 01/26/22 08/11/22 Unknown History meclizine 25 mg tablet (Dramamine 25 mg PO TID PRN Dizziness 01/26/22 08/11/22 Unknown History (meclizine)) melatonin 3 mg tablet 3 - 6 mg PO BEDTIME PRN Insomnia 01/26/22 08/11/22 Unknown History metformin 500 mg tablet 500 mg PO BID 01/26/22 08/25/22 08/24/22 History baclofen 20 mg tablet 20 mg PO BID 03/31/22 08/11/22 Unknown History lancets 33 gauge (TRUEplus Lancets) #100 ea 03/31/22 08/11/22 Unknown History cholestyramine (with sugar) 4 gram 4 g PO DAILY 04/01/22 08/11/22 Unknown History oral powder (Questran) ibuprofen 600 mg tablet (IBU) 600 mg PO TID PRN fever or pain 04/01/22 08/25/22 07/26/22 History pantoprazole 40 mg tablet,delayed 40 mg PO DAILY 04/01/22 08/11/22 Unknown History release (Protonix) topiramate 50 mg tablet 0.5 - 1 tab PO BID PRN Anxiety 06/17/22 08/11/22 Unknown History Exam Exam Date and Time: August 24, 2022 1230 Height,Weight and Vital Signs: Height 5 ft 6 in Weight 117.934 kg Pertinent Lab Results Pertinent Lab Results: Laboratory Tests 03/26/22 03/26/22 03:03 03:03 WBC 8.2 Hgb 11.8 L Hct 36.6 L Plt Count 246 Sodium 139 Potassium 3.7 Chloride 105 Carbon Dioxide 27 BUN 17 H Creatinine 0.68 Narrative Narrative: EKG 03/2022 Vent. Rate : 074 BPM ? ? Atrial Rate : 074 BPM ?? P-R Int : 168 ms? QRS Dur : 094 ms ? ? QT Int : 410 ms ? ? ? P-R-T Axes : 025 019 030 degrees ?? QTc Int : 455 ms ? Normal sinus rhythm Normal ECG When compared with ECG of 14-SEP-2022 07:29, No significant change was found ? Holter 2021 Total monitoring time 2 days and 23 hours. Underlying rhythm is sinus.? Average ventricular rate 83/Min.? Range 51 to 156/Min.? About 18% of the time, rate > 100/Min. Very rare supraventricular/ventricular ectopy. No significant pauses or AV blocks. Symptoms in patient diary correlate with sinus rhythm. Assessment and Plan Assessment Anesthesia Assessment: Chart Reviewed Final Anesthetic Review Family History of Problems with Anesthesia: No History of Problems with Anesthesia: No Documented by User: Wilmer Dale MD 08/25/22 15:36 PMFSH Past Medical History Medical History Abdominal cramping Arthritis COVID Epigastric pain Fibromyalgia GERD (gastroesophageal reflux disease) Hx of fracture of wrist Hx of sleep apnea Hx of vertigo Hypertension Microscopic hematuria Morbid obesity Osteoarthritis Pre-diabetes Primary osteoarthritis of knees, bilateral Stress incontinence Subcutaneous abscess Urgency incontinence Family History Family History Father Stomach cancer Brother Stomach problems Surgical History Surgical History History of cholecystectomy (~2019) History of open reduction and internal fixation (ORIF) procedure Hx of colonoscopy Hx of tubal ligation Social History Social History Household Members: Family Housing: Apartment Do you presently have visiting nurse or other home services: No Alcohol intake: never Patient Tobacco Use Status: Former Tobacco user Quit Date: 30 yrs ago Tobacco use type: Cigarette Second Hand Smoke Exposure: No Use of substances other than those prescribed or required for medical reasons: No Are you DNR?: No Advance Directives: No Advance Directives Information Provided: Yes Advance Directives Date on File: 01/28/20 service: No Current occupational status: unemployed Meds Allergies Allergy/AdvReac Type Severity Reaction Status Date / Time No Known Allergies Allergy Verified 08/25/22 12:45 [No Known Allergies*] Home Medications Medication Instructions Recorded Confirmed Last Taken Type amlodipine 10 mg tablet (Norvasc) 10 mg PO DAILY 01/23/20 08/25/22 08/25/22 08:30 History citalopram 20 mg tablet (Celexa) 20 mg PO DAILY 01/23/20 08/11/22 01/22/20 08:00 History clonazepam 0.5 mg tablet (Klonopin) 0.5 mg PO BEDTIME 01/23/20 08/11/22 01/21/20 21:00 History diclofenac sodium 75 mg 75 mg PO BID 01/23/20 08/11/22 01/22/20 08:00 History tablet,delayed release duloxetine 60 mg capsule,delayed 60 mg PO DAILY 01/23/20 08/11/22 01/22/20 08:00 History release (Cymbalta) amitriptyline 25 mg tablet 25 mg PO BEDTIME 01/26/22 08/11/22 Unknown History ammonium lactate 12 % lotion (Skin 12 ea topical DAILY 01/26/22 08/11/22 Unknown History Treatment) aspirin 81 mg tablet,delayed 81 mg PO DAILY 01/26/22 08/25/22 08/24/22 History release (Adult Low Dose Aspirin) cetirizine 10 mg tablet (Zyrtec) 10 mg PO DAILY 01/26/22 08/11/22 Unknown History cholecalciferol (vitamin D3) 50 50 mcg PO DAILY 01/26/22 08/11/22 Unknown History mcg (2,000 unit) capsule (Vitamin D3) fluticasone propionate 110 2 puff inhalation BID 01/26/22 08/11/22 Unknown History mcg/actuation HFA aerosol inhaler (Flovent HFA) gabapentin 600 mg tablet 600 mg PO BID 01/26/22 08/11/22 Unknown History (Neurontin) hydralazine 25 mg tablet 25 mg PO BID 01/26/22 08/11/22 Unknown History hydrochlorothiazide 25 mg tablet 25 mg PO DAILY 01/26/22 08/11/22 Unknown History losartan 100 mg tablet (Cozaar) 100 mg PO DAILY 01/26/22 08/11/22 Unknown History meclizine 25 mg tablet (Dramamine 25 mg PO TID PRN Dizziness 10/19/22 05/04/23 Unknown History (meclizine)) melatonin 3 mg tablet 3 - 6 mg PO BEDTIME PRN Insomnia 01/26/22 08/11/22 Unknown History metformin 500 mg tablet 500 mg PO BID 01/26/22 08/25/22 08/24/22 History baclofen 20 mg tablet 20 mg PO BID 03/31/22 08/11/22 Unknown History lancets 33 gauge (TRUEplus Lancets) #100 ea 03/31/22 08/11/22 Unknown History cholestyramine (with sugar) 4 gram 4 g PO DAILY 04/01/22 08/11/22 Unknown History oral powder (Questran) ibuprofen 600 mg tablet (IBU) 600 mg PO TID PRN fever or pain 04/01/22 08/25/22 07/26/22 History pantoprazole 40 mg tablet,delayed 40 mg PO DAILY 04/01/22 08/11/22 Unknown History release (Protonix) topiramate 50 mg tablet 0.5 - 1 tab PO BID PRN Anxiety 06/17/22 08/11/22 Unknown History Exam Airway Mallampati Class: I TM Dist: <=3cm (anterior, short neck.) Neck ROM: Full Heart: ok Lungs: ok Assessment and Plan Assessment Anesthesia Assessment: Anesthesia Plan Discussed Final Anesthetic Review NPO: Yes ASA Class: III Final Preanesthetic Review: No Changes in Pt Med Stat, Meds/Allgs Chart Reviewed, Consent Obtained/Reviewed and Anes Risks/Benef Reviewed Patient Risk: Intermediate Procedure Risk: Intermediate Anesthetic Plan Anesthetic Plan: MAC: and Agree w/ Assess. and Plan Disposition: Standard PACU
[2022-08-25 12:36] VITALS: BP 120/69; PULSE 83; RESP 16; TEMP 36.2; O2SAT 96
[2022-08-25 12:53] VITALS: BMI 42.0
[2022-08-25] MEDS: Lactated Ringers 1,000 ML 100 ML IVCONT (12:55)
[2022-08-25 12:59] LABS: Glucose, Whole Blood 130 mg/dL (60-115)
--- NOTE | 2022-08-25 14:53 | MHC.SHP ---
Pre-Procedural Eval Section A Date of Service: 08/25/22 Section B Chief Complaint: GERD and hx of colitis, abdominal pain Details of Present Illness: FH of CRC Relevant Family History (Specify if Yes): Yes Relevant Social History: None Present Medications: see Short Stay Collaborative assessment Medical History: Significant History (Abdominal cramping Arthritis COVID Epigastric pain Fibromyalgia GERD (gastroesophageal reflux disease) Hx of fracture of wrist Hx of sleep apnea Hx of vertigo Hypertension Microscopic hematuria Morbid obesity Osteoarthritis Pre-diabetes Primary osteoarthritis of knees, bilateral Stress incontinence ) History of Previous Operations: Relevant previous surgery/procedure and date(s) (History of cholecystectomy (~2018) History of open reduction and internal fixation (ORIF) procedure Hx of colonoscopy Hx of tubal ligation) Allergies: Allergies Allergy/AdvReac Type Severity Reaction Status Date / Time No Known Allergies Allergy Verified 08/25/22 12:45 [No Known Allergies*] Review of Systems Sugical H&P ROS: Negative: Constitution, Cardiovascular, Respiratory, Neurological, Psychiatric, Hem-Onc, Allergic/Immunologic, Gastrointestinal, Genitourinary, Musculoskeletal, Integumentary, Endocrine and Eyes/Ears/Nose/Throat Exam Surgical H&P Exam: Normal: HEENT, Normal: Heart, Normal: Lungs, Normal: Extremities, Normal: Abdomen, Normal: Skin and Normal: Neurological Plan Diagnosis/Plan: Unchanged I have reviewed the history and physical and performed a pertinent physical examination on my patient. No changes have occurred unless specified. Time Spent With Patient Time: Total time managing care of this patient today ____ minutes.
--- NOTE | 2022-08-25 15:20 | W.PM.OPN ---
Operative Note Operative Note Date of Service: 08/25/22 Narrative: Operative Information Procedure Description: EGD, Colonoscopy Indication: GERd, abdominal pain, hx of polyp Anesthesia: MAC FLEXIBLE TRANSORAL UPPER GASTROINTESTINAL ENDOSCOPY AND COLONOSCOPY PROCEDURE NOTE UPPER ENDOSCOPY Consent: Indications for the procedure and potential complications of bleeding, perforation, reaction to medications and missed diagnosis were discussed with the patient and informed consent was obtained. Instrument: Olympus GIF H 190 J mid size upper endoscope Monitoring: Vital signs and clinical assessment, continuous EKG monitoring, Pulse oximetry, Carbon Dioxide monitoring and blood pressure monitoring were done throughout the procedure. Procedure: The patient was placed in the left lateral decubitis position and pre-procedure medications were administered and a bite block was placed. The endoscope was inserted into the mouth and advanced under direct vision to the third part of duodenum. A careful inspection was made as the upper endoscope was withdrawn including a retroflexed examination of the proximal stomach; Findings and interventions are described below. Findings: Larynx:normal Esophagus: GE junction at 37 cm, diaphragm hiatus at 37 cm, few streaky erosions noted at GEJ, bx taken as well as from distal and proximal esophagus Stomach: Patchy erythema. Biopsies were obtained. Grade 2 flap valve on retroflexed examination of the cardia. Duodenum: Normal bulb and descending duodenum, bx taken Intervention: Biopsies as noted above COLONOSCOPY Instrument: Olympus variable stiffness pediatric scope 190L Colonoscopy Monitoring: Vital signs and clinical assessment, continuous EKG monitoring, Pulse oximetry, Carbon Dioxide monitoring and blood pressure monitoring were done throughout the procedure. Colon withdrawal time was 8 minutes. Procedure: The patient was placed in the left lateral decubitis position and pre-procedure medications were administered. After a digital rectal examination of the ano-rectum, the video colonoscope was inserted into the rectum and advanced through the colon to the cecum/TI. The colonoscope was slowly withdrawn in a retrograde panoramic fashion and the colon mucosa was carefully examined including a retroflexed view of the rectum. Findings and interventions are described below. Procedure Difficulty: easy Findings: Terminal Ileum-normal, bx taken random bx taken from right, left and rectum in separate jars Cecum:normal Ascending Colon: normal Transverse Colon -normal Descending Colon:normal Sigmoid Colon: diverticulosis noted Rectum: Retroflexion with small internal hemorrhoids, grade I Anorectum - normal Colon preparation: [place] Bowel Preparation Scale Right colon; 1-2 Transverse colon: 1 Left colon; 1 (0 = Unprepared colon segment with mucosa not seen due to solid stool that cannot be cleared. 1 = Portion of mucosa of the colon segment seen, but other areas of the colon segment not well seen due to staining, residual stool and/or opaque liquid. 2 = Minor amount of residual staining, small fragments of stool and/or opaque liquid, but mucosa of colon segment seen well. 3 = Entire mucosa of colon segment seen well with no residual staining, small fragments of stool or opaque liquid) Impression and Post Procedure Diagnosis: Endoscopy Findings: erosive esophagitis gastritis Colonoscopy Findings: internal hemorrhoids diverticular disease poor prep Plan: Await Pathology results Repeat Colonoscopy in 6-8 month or earlier if clinically indicated with prep compliance High fiber diet leaflet avoid straining at stool, epsom salts and sitz bath, anusol supps or cream check PPi compliance and use of NSAIDs if h pylori pos thne treat Above findings were reviewed with the patient and relevant handouts were provided if indicated.
--- NOTE | 2022-08-25 15:57 | PC.NURSE ---
Dr. Heath made aware that patient took asa yesterday morning and that patient also ate a ham and cheese breakfast sandwich yesterday am at 0800.
[2022-08-25 16:44] VITALS: BP 110/55; PULSE 84; RESP 20; TEMP 36.8; O2SAT 95
[2022-08-25 16:59] VITALS: BP 117/72; PULSE 76; RESP 16; TEMP 36.8; O2SAT 97
== END 2022-08-25 17:14 | disposition home or self-care (01) ==
PROVIDERS: PCP Internal Medicine; Visit Provider Internal Medicine Gastroenterology
PROC: (CPT 45380; principal; 2022-08-25 12:50)
DX: R10.9 Unspecified abdominal pain (principal); Z86.010 Personal history of colon polyps; K57.30 Diverticulosis of large intestine without perforation or abscess without bleeding; K64.0 First degree hemorrhoids; K58.0 Irritable bowel syndrome with diarrhea; R10.13 Epigastric pain; K29.50 Unspecified chronic gastritis without bleeding; K21.9 Gastro-esophageal reflux disease without esophagitis; K20.80 Other esophagitis without bleeding; R14.0 Abdominal distension (gaseous); K44.9 Diaphragmatic hernia without obstruction or gangrene; I10 Essential (primary) hypertension; R73.03 Prediabetes; M17.0 Bilateral primary osteoarthritis of knee; M79.7 Fibromyalgia; E66.01 Morbid (severe) obesity due to excess calories; Z68.41 Body mass index [BMI] 40.0-44.9, adult; G47.33 Obstructive sleep apnea (adult) (pediatric); Z79.51 Long term (current) use of inhaled steroids; Z79.82 Long term (current) use of aspirin; Z79.84 Long term (current) use of oral hypoglycemic drugs; Z79.899 Other long term (current) drug therapy; Z87.891 Personal history of nicotine dependence; Z90.49 Acquired absence of other specified parts of digestive tract
CPT/HCPCS: 45380; 43239; 82947; 88305; 88342; J3010

== ENCOUNTER → 2022-09-06 13:03 | Outpatient (BNVA) | payer OTHER, SELFPAY | PROVIDERS: PCP Internal Medicine; Visit Provider Nurse Practitioner | DX: K57.30 Diverticulosis of large intestine without perforation or abscess without bleeding (principal); K64.0 First degree hemorrhoids; K29.70 Gastritis, unspecified, without bleeding; K20.80 Other esophagitis without bleeding; Z86.010 Personal history of colon polyps; K52.9 Noninfective gastroenteritis and colitis, unspecified; K21.9 Gastro-esophageal reflux disease without esophagitis; K58.0 Irritable bowel syndrome with diarrhea; K91.5 Postcholecystectomy syndrome; Z98.890 Other specified postprocedural states | CPT/HCPCS: 99212 ==

== ENCOUNTER 2022-10-18 10:05 | Outpatient (AMB) | payer OTHER, SELFPAY ==
--- NOTE | 2022-10-18 10:05 | MHC.OFFVIS ---
Intake Vital Signs 10/18/22 10:09 Height 5 ft 6 in Weight 277 lb 5.464 oz BMI 44.8 BP 135/75 Blood Pressure Location Lt brachial Position Sitting Pulse 79 Intake Visit Reasons: Follow up 6 weeks Intake Note: Chelsi presents in office as a est.patient for a 6week f/u PT CC: pt reports having GERD,epigastric abdominal pain pt denies any other GI Issues Outside Sales Advertising Executive Required: Yes Outside Sales Advertising Executive Language: Luxembourgish Accompanied by: Self / Same As Patient Allergies No Known Allergies [No Known Allergies*] Allergy (Verified 10/18/22 11:08) HPI Follow up 6 weeks HPI Details Assessment & Plan (1) Tubulovillous adenoma of colon: ?Comment: 09/2022= poor prep repeat in 1 year; 10/07/20 SCOPE, TVA repeat 1 year ?Code(s): D12.6 - Benign neoplasm of colon, unspecified ?Plan: CYPRIOT #POISER BALANCE interprets per pt request. Pt has been lost to follow up since 07/2021. Past Celiac studies have been negative. We review the results. She had run out of her protonix and was put in 20mg esomeprazole by her PCP (but this likely explains the esophagitis). She thinks she is on 20mg will increase the 40mg. She also has not had her cholestyramine and has been having diarrhea - another contributing factor to bile reflux. Also having side cramping and needs her bentyl. She is agreeable to the 1 year follow up for the scope, we will stop the cholestyramine a couple of days before the procedure to promote clearing.? The procedure was well tolerated.? The results were explained and the patient is agreeable to the follow-up interval as stated.? The bowel pattern has returned to normal.? Education was provided to tell any 1st degree relatives about their findings to be sure that they are screened by age 45.? Educated that they will be put on a recall list when it is time for their repeat scope but should they move out of state or away from the hospital they will need to remember along with their primary to repeat the procedure in a timely fashion to avoid any adverse complications. I educate her to NOTIFY me if she does not get her meds or needs an appt. She IS on pt portal and we can translate from Luxembourgish if she uses this and the email fxn. GERD diet/lifestyle education printed via [employer]. ROV 6 weeks. (2) Colitis determined by colorectal biopsy: ?Code(s): K52.9 - Noninfective gastroenteritis and colitis, unspecified (3) GERD (gastroesophageal reflux disease): ?Code(s): K21.9 - Gastro-esophageal reflux disease without esophagitis (4) Irritable bowel syndrome with diarrhea: ?Code(s): K58.0 - Irritable bowel syndrome with diarrhea (5) Post-cholecystectomy syndrome: ?Code(s): K91.5 - Postcholecystectomy syndrome ? ? ? Medications: New cholestyramine ( sugar) 4 gram ( Questran) ?? admin ister w/meal; avoi d other meds withi n 1hr before or 4- 6hr after dose 4 grams? PO DAILY 378 grams 6RF K91.5 - Postcholec ystectomy syndrome ? esomeprazole magne sium 40 mg? PO DAILY 30 caps 6RF K21.9 - Gastro-eso phageal reflux dis ease without esoph agitis ? famotidine (Pepcid ) 40 mg? PO BEDTIME 30 tabs 6RF K21.9 - Gastro-eso phageal reflux dis ease without esoph agitis, K22.10 - U lcer of esophagus without bleeding ? Refilled dicyclomine 20 mg? PO TID 90 t abs 1RF ? ? simethicone 180 mg? PO QID 120 caps 6RF R14.0 - Abdominal distension (gaseou s) ? TODAYS VISIT CYPRIOT #Jennie Bansal Past Celiac studies have been negative. She continues to have multiple post prandial loose BM's and pain in the lower/upper abdomen. We will increase the cholestyramine to 2 scoops bid. Her GERD has improved on the 3someprazole 40mg qd. She says her whole family has post prandial diarrhea despite not having cholecystectomies. This is curious. To her knowledge there is no food allergy or inflammatory bowel disease in the family. ROV 4 weeks. [facility] Medical History Abdominal cramping Arthritis COVID Epigastric pain Fibromyalgia GERD (gastroesophageal reflux disease) Hx of fracture of wrist Hx of sleep apnea Hx of vertigo Hypertension Microscopic hematuria Morbid obesity Osteoarthritis Pre-diabetes Primary osteoarthritis of knees, bilateral Stress incontinence Subcutaneous abscess Urgency incontinence Surgical History History of cholecystectomy (~2019) History of open reduction and internal fixation (ORIF) procedure Hx of colonoscopy Hx of tubal ligation Family History Father Stomach cancer Brother Stomach problems Social History Household Members: Family Housing: Apartment Do you presently have visiting nurse or other home services: No Alcohol intake: never Patient Tobacco Use Status: Former Tobacco user Quit Date: 30 yrs ago Tobacco use type: Cigarette Second Hand Smoke Exposure: No Advance Directives Date on File: 01/28/20 service: No Current occupational status: unemployed Review of Systems Const Denies fatigue, Denies fever(s), Denies night sweats, Denies poor appetite and Denies weight loss ENT Reports Normal hearing present, Denies dental pain, Denies dysphagia, Denies hearing loss, Denies mouth pain, Denies odynophagia, Denies throat swelling, Denies tongue swelling and Reports other (Dentition adequate) Card Reports no additional complaints Resp Reports no additional complaints GI Denies abdominal pain, Denies melena, Denies bloating, Denies hematochezia, Denies constipation, Denies GI cramping, Denies dysphagia, Denies excessive flatus, Denies early satiety, Reports heartburn, Reports diarrhea, Denies nausea, Denies odynophagia, Denies vomiting and Denies hematemesis Skin/Breast Denies pruritus, Denies lesions, Denies rash and Denies jaundice Neuro Reports Normal hearing present and Denies Abnormal speech present Endo Denies fatigue Aller/Immun Denies throat swelling and Denies tongue swelling Physical Exam Vital Signs: Last Vital Signs Pulse 79 10/18/22 10:09 BP 135/75 10/18/22 10:09 BMI result Body Mass Index 44.8 Const General: cooperative, no acute distress, well developed and well groomed Nutritional Appearance: well nourished and obese morbidly obese Orientation/consciousness: oriented to person, oriented to place and oriented to time Limitations: language barrier HEENT Head: Yes normocephalic and Yes atraumatic Eyes General: appearance normal, both eyes and all related structures Pupils: Equal, round and reactive pupils present Neck Neck: Yes normal visual inspection and Yes no lymphadenopathy Thyroid: Thyroid normal Resp Effort & Inspection: normal respiratory effort and able to speak in complete sentences Auscultation: clear to auscultation bilaterally Cardio Rate: regular rate Rhythm: regular rhythm Heart sounds: Normal, physiologic split S2 sound present Peripheral pulses: radial pulses present and posterior tibial pulses present GI Inspection: No distended, Yes Abdominal panniculus present and Yes obesity Palpation (GI): Soft to palpation, nontender, no guarding, not rigid and No hepatosplenomegaly present Percussion: Yes normal to percussion Auscultation: normal bowel sounds Rectal Exam - Female: deferred Skin General skin exam: no rashes or lesions noted, turgor normal, skin not dry, no jaundice, No spider nevi and no striae Rashes: no rashes Nails: normal Neuro General: oriented to person, oriented to place and oriented to time Cranial nerves: Yes Equal, round and reactive pupils present and Yes Normal hearing present Speech: No Abnormal speech present Extrem General: Yes normal to inspection, No clubbing, No cyanosis and No edema Psych Appearance: grossly normal and well kempt Mental Status: mental status grossly normal Speech and movement: Normal speech and movement present Affect: normal affect Attitude: cooperative Thought process: Normal thought process present and not confabulating Thought content: Normal thought content present Insight: Limited insight present (Psych) Judgement: Limited judgement present (Psych) Assessment & Plan Assessment & Plan (1) Post-cholecystectomy syndrome: Code(s): K91.5 - Postcholecystectomy syndrome Plan: CYPRIOT #Jennie Live Past Celiac studies have been negative. She continues to have multiple post prandial loose BM's and pain in the lower/upper abdomen. We will increase the cholestyramine to 2 scoops bid. Her GERD has improved on the esomeprazole 40mg qd. She says her whole family has post prandial diarrhea despite not having cholecystectomies. This is curious. To her knowledge there is no food allergy or inflammatory bowel disease in the family. ROV 4 weeks. (2) Erosive esophagitis: Code(s): K22.10 - Ulcer of esophagus without bleeding (3) Irritable bowel syndrome with diarrhea: Code(s): K58.0 - Irritable bowel syndrome with diarrhea (4) GERD (gastroesophageal reflux disease): Code(s): K21.9 - Gastro-esophageal reflux disease without esophagitis (5) Tubulovillous adenoma of colon: Comment: 09/2022= poor prep repeat in 1 year; 10/07/20 SCOPE, TVA repeat 1 year Code(s): D12.6 - Benign neoplasm of colon, unspecified Medications: Changed From cholestyramine (with sugar) 4 gram administer w/meal; avoid other meds within 1hr before or 4-6hr after dose 4 grams PO DAILY 378 grams 6RF K91.5 - Postcholecystectomy syndrome To cholestyramine (with sugar) 4 gram (Questran) administer w/meal; avoid other meds within 1hr before or 4-6hr after dose 8 grams PO BID 756 grams 6RF K91.5 - Postcholecystectomy syndrome Coding Level of Care Code Est Pt Level 3 (42524) Diagnoses Post-cholecystectomy syndrome K91.5 Erosive esophagitis K22.10 Irritable bowel syndrome with diarrhea K58.0 GERD (gastroesophageal reflux disease) K21.9 Tubulovillous adenoma of colon D12.6
[2022-10-18 10:09] VITALS: BP 135/75; PULSE 79; BMI 44.8
== END 2022-10-18 11:01 | disposition home or self-care (01) ==
LOC: HO.HGI 10:05
PROVIDERS: PCP Internal Medicine; Visit Provider Nurse Practitioner
DX: K91.5 Postcholecystectomy syndrome (principal); K22.10 Ulcer of esophagus without bleeding; K58.0 Irritable bowel syndrome with diarrhea; K21.9 Gastro-esophageal reflux disease without esophagitis; D12.6 Benign neoplasm of colon, unspecified
CPT/HCPCS: 99213

== ENCOUNTER → 2022-10-18 10:05 | Outpatient (BNVA) | payer OTHER, SELFPAY | PROVIDERS: PCP Internal Medicine; Visit Provider Nurse Practitioner | DX: R06.09 Other forms of dyspnea (principal); J45.909 Unspecified asthma, uncomplicated; U09.9 Post COVID-19 condition, unspecified; Z87.891 Personal history of nicotine dependence; K21.9 Gastro-esophageal reflux disease without esophagitis; K22.10 Ulcer of esophagus without bleeding; K58.0 Irritable bowel syndrome with diarrhea; D12.6 Benign neoplasm of colon, unspecified; K91.5 Postcholecystectomy syndrome | CPT/HCPCS: 99202; 99212 ==

== ENCOUNTER 2022-10-18 10:47 | Outpatient (AMB) | payer OTHER, SELFPAY ==
[2022-10-18 10:49] VITALS: BP 128/80; PULSE 72; O2SAT 92; BMI 44.7
--- NOTE | 2022-10-18 10:49 | A.OFFVIS_ITS ---
Intake Vital Signs 10/18/22 10:49 Height 5 ft 6 in Weight 277 lb BMI 44.7 BP 128/80 Pulse 72 Pulse Oximetry (%) 92 Intake Visit Reasons: Shortness of breath Intake Note: pt was referred for shortness of breath, started in 2019 after she had covid 3x. she was diagnosed with asthma by pcp. she is currently using ventolin inhaler. no previous hx of baggage smasher of pfts. Allergies No Known Allergies [No Known Allergies*] Allergy (Verified 10/18/22 11:08) HPI Shortness of breath HPI Details 57-year-old lady, remote, greater than 30 years ago, 10 pack-year smoker, with underlying obesity and moderate obstructive sleep apnea now followed as medicine referred for evaluation of dyspnea on exertion. Patient has been using Advair and albuterol MDI with suboptimal control of his symptoms. Patient does states that albuterol MDI provide at least some relief. She does complain of orthopnea, paroxysmal nocturnal dyspnea, but no significant lower extremity edema. Patient denies family history of lung disease. She does complain of environmental allergies. 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 [facility] Medical History Abdominal cramping Arthritis COVID Epigastric pain Fibromyalgia GERD (gastroesophageal reflux disease) Hx of fracture of wrist Hx of sleep apnea Hx of vertigo Hypertension Microscopic hematuria Morbid obesity Osteoarthritis Pre-diabetes Primary osteoarthritis of knees, bilateral Stress incontinence Subcutaneous abscess Urgency incontinence Surgical History History of cholecystectomy (~2018) History of open reduction and internal fixation (ORIF) procedure Hx of colonoscopy Hx of tubal ligation Family History Father Stomach cancer Brother Stomach problems Social History Household Members: Family Housing: Apartment Do you presently have visiting nurse or other home services: No Alcohol intake: never Patient Tobacco Use Status: Former Tobacco user Quit Date: 30 yrs ago Tobacco use type: Cigarette Second Hand Smoke Exposure: No Advance Directives Date on File: 01/28/20 service: No Current occupational status: unemployed Review of Systems Const Denies daytime sleepiness, Denies excessive sweating, Denies fatigue, Denies fever(s), Denies lethargy, Denies malaise, Denies night sweats, Denies snoring and Denies weight loss Eyes Denies blurry vision and Denies itchy eyes ENT Denies nasal congestion, Denies post nasal drip, Denies sinus pain, Denies sinus pressure and Denies other ( Thrush) Card Denies chest pain, Denies pedal edema, Denies dyspnea, Reports dyspnea on exertion, Reports orthopnea and Reports paroxysmal nocturnal dyspnea Resp Denies cough, Denies hemoptysis, Denies excessive phlegm production, Denies dyspnea, Reports dyspnea on exertion, Denies snoring and Denies wheezing GI Denies abdominal pain and Denies heartburn Musc Denies myalgias, Denies arthralgias and Denies joint swelling Skin/Breast Denies rash Neuro Denies memory loss and Denies seizure-like activity Psych Denies abnormal sleep pattern, Denies anxiety and Denies memory loss Endo Denies excessive sweating, Denies fatigue and Denies heat intolerance Segun/Lymph Denies easy bruising Aller/Immun Denies itchy eyes, Denies seasonal rhinorrhea and Denies wheezing Physical Exam Vital Signs: Last Vital Signs Pulse 72 10/18/22 10:49 BP 128/80 10/18/22 10:49 Pulse Ox 92 10/18/22 10:49 BMI result Body Mass Index 44.7 Const General: no acute distress and alert Nutritional Appearance: obese Orientation/consciousness: Other orientation findings ( oriented) HEENT Head: Yes atraumatic Eyes General: appearance normal, both eyes and all related structures Sclerae: sclerae normal EOM: EOMs intact bilaterally Neck Neck: Yes supple Lymphatic: no lymphadenopathy noted Resp Effort & Inspection: normal respiratory effort and no use of accessory muscles Auscultation: clear to auscultation bilaterally Cardio Rate: regular rate Rhythm: regular rhythm Heart sounds: no gallops, no murmurs and no rubs Skin General skin exam: other ( warm) Extrem General: No clubbing, No cyanosis and Yes edema (Trace bilateral) Assessment & Plan Assessment & Plan (1) TOUSSAINT (dyspnea on exertion): Code(s): R06.09 - Other forms of dyspnea Plan: Multifactorial with contribution from underlying cardiac, pulmonary, and obesity/deconditioning etiologies. Will obtain 2D echocardiogram to evaluate cardiac component. Will obtain pulmonary function test to evaluate pulmonary component. (2) Asthma: Code(s): J45.909 - Unspecified asthma, uncomplicated Plan: Will continue on the current regimen of Advair and albuterol MDI until PFT are available. (3) Post covid-19 condition, unspecified: Code(s): U09.9 - Post COVID-19 condition, unspecified Plan: Patient with 3 prior bout of COVID-19 with significant worsening with symptoms after the most recent COVID infection. Will obtain CT chest to evaluate for early fibrosis. Orders: Orders CA echo transthorac w con Today R06.09 - Other forms of dyspnea CT chest wo IV con Today U09.9 - Post COVID-19 condition, unspecified PFT pulmonary function test Today J45.909 - Unspecified asthma, uncomplicated Coding Level of Care Code New Pt Level 4 (04638) Diagnoses TOUSSAINT (dyspnea on exertion) R06.09 Asthma J45.909 Post covid-19 condition, unspecified U09.9
== END 2022-10-18 11:29 | disposition home or self-care (01) ==
PROVIDERS: PCP Internal Medicine; Visit Provider Internal Medicine Pulmonary Disease
DX: R06.09 Other forms of dyspnea (principal); J45.909 Unspecified asthma, uncomplicated; U09.9 Post COVID-19 condition, unspecified
CPT/HCPCS: 99204

== ENCOUNTER 2022-11-10 09:46 | Outpatient (AMB) | payer OTHER, MEDICAID, SELFPAY ==
--- NOTE | 2022-04-05 11:10 | MHC.OFFVIS ---
Intake Intake Visit Reasons: NPV / GABRIELA Allergies No Known Allergies [No Known Allergies*] Allergy (Verified 03/30/22 08:27) PFSH Medical History (Updated 04/01/22 @ 12:54 by Jackelyn Healy RN) Abdominal cramping Arthritis COVID Epigastric pain Fibromyalgia GERD (gastroesophageal reflux disease) Hx of fracture of wrist Hx of sleep apnea Hx of vertigo Hypertension Morbid obesity Osteoarthritis Pre-diabetes Primary osteoarthritis of knees, bilateral Subcutaneous abscess Surgical History (Updated 04/01/22 @ 12:08 by Jackelyn Healy RN) History of cholecystectomy (~2018) Hx of colonoscopy Hx of tubal ligation Family History Father Stomach cancer Brother Stomach problems Social History Household Members: Family Housing: Apartment Do you presently have visiting nurse or other home services: No Alcohol intake: never Patient Tobacco Use Status: Former Tobacco user Quit Date: 30 yrs ago Second Hand Smoke Exposure: No Advance Directives Date on File: 01/28/20 service: No 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
--- NOTE | 2022-11-10 09:48 | MHC.OFFVIS ---
Intake Vital Signs 11/10/22 09:58 Height 5 ft 6 in Weight 274 lb BMI 44.2 BP 108/78 Blood Pressure Location Lt brachial Position Sitting Pulse 77 Pulse Source Pulse Oximeter Pulse Oximetry (%) 97 Oxygen Delivery Method Room Air Intake Visit Reasons: NPV / GABRIELA - Confirmed through CW Intake Note: NPV for suspected sleep apnea Embryology Professor Required: Yes Embryology Professor Name: Malgorzata Oliveira Allergies No Known Allergies [No Known Allergies*] Allergy (Verified 11/10/22 09:51) HPI HPI Comments History of Present Illness Details 57 y/o female patient presents with her SOLAR ELECTRIC/PHOTOVOLTAIC INSTALLER for new in-person visit to manage sleep apnea. Pt reports hx of sleep apnea and used CPAP for short period of time. Pt's SOLAR ELECTRIC/PHOTOVOLTAIC INSTALLER states that she had problem with mask and difficultly using it. Pt returned her CPAP. Pt continues to have loud snoring, difficulty staying sleep and non refreshing sleep. She reports daytime tiredness, lack of energy and wt gain. Pt had a repeat sleep study done in 03/01. The home sleep study result was significant for moderate degree of sleep apnea. The AHI 16/hr and snoring for 11% of the sleep time. There is also mild nocturnal hypoxemia with average O2 sat 90%, lowest O2 sat 73% and O2 sat below 88% for 21 min. [facility] Medical History Abdominal cramping Arthritis COVID Epigastric pain Fibromyalgia GERD (gastroesophageal reflux disease) Hx of fracture of wrist Hx of sleep apnea Hx of vertigo Hypertension Microscopic hematuria Morbid obesity Osteoarthritis Pre-diabetes Primary osteoarthritis of knees, bilateral Stress incontinence Subcutaneous abscess Urgency incontinence Surgical History History of cholecystectomy (~2019) History of open reduction and internal fixation (ORIF) procedure Hx of colonoscopy Hx of tubal ligation Family History (Updated 11/10/22 @ 09:56 by Monse Smith CMA) Father Stomach cancer Brother Stomach problems Mother Diabetes Social History (Updated 11/10/22 @ 09:57 by Monse Smith CMA) Household Members: Family Housing: Apartment Do you presently have visiting nurse or other home services: No Alcohol intake: never Patient Tobacco Use Status: Former Tobacco user Quit Date: 30 yrs ago Tobacco use type: Cigarette Second Hand Smoke Exposure: No Advance Directives Date on File: 01/28/20 service: No Current occupational status: unemployed Review of Systems Const All systems reviewed & are unremarkable except as noted in HPI and below ENT Reports Normal hearing present Neuro Reports Normal hearing present Physical Exam Vital Signs: Last Vital Signs Pulse 77 11/10/22 09:58 BP 108/78 11/10/22 09:58 Pulse Ox 97 11/10/22 09:58 Oxygen Delivery Method Room Air 11/10/22 09:58 BMI result Body Mass Index 44.2 Const General: cooperative Nutritional Appearance: obese Orientation/consciousness: patient oriented x3 Limitations: language barrier Neck Neck: Yes full ROM and Yes supple Resp Effort & Inspection: normal respiratory effort and able to speak in complete sentences Neuro General: patient oriented x3 and gait normal Cranial nerves: Yes Bilaterally intact EOM present, Yes Normal facial strength present, Yes Midline tongue present, Yes Symmetric palate elevation present, Yes Normal hearing present, Yes Ability to bilaterally rotate head present and Yes Ability to bilaterally elevate shoulders present Cognition (Neuro): normal cognition Gait exam (Neuro): Normal gait present Motor exam (neuro): 5/5 motor strength present throughout, Pronator motor function not present and no tremor noted Psych Appearance: grossly normal Mental Status: mental status grossly normal Speech and movement: Normal speech and movement present Affect: normal affect Attitude: cooperative Assessment & Plan Assessment & Plan (1) GABRIELA (obstructive sleep apnea): Comment: moderate degree of sleep apnea. The AHI 16/hr and snoring for 11% of the sleep time. There is also mild nocturnal hypoxemia with average O2 sat 90%, lowest O2 sat 73% and O2 sat below 88% for 21 min. Code(s): G47.33 - Obstructive sleep apnea (adult) (pediatric) (2) Obese: Code(s): E66.9 - Obesity, unspecified Plan Start APAP [id number]. Stressed compliance, use CPAP nightly and more than 4 hours. Sleep hygiene education provided. Encouraged patient to increase physical activity and wt reduction advised. Coding Level of Care Code New Pt Level 3 (28163) Diagnoses GABRIELA (obstructive sleep apnea) G47.33 Obese E66.9
[2022-11-10 09:58] VITALS: BP 108/78; PULSE 77; O2SAT 97; BMI 44.2
== END 2022-11-10 11:11 | disposition home or self-care (01) ==
PROVIDERS: PCP Internal Medicine; Visit Provider Nurse Practitioner Family
DX: G47.33 Obstructive sleep apnea (adult) (pediatric) (principal); E66.9 Obesity, unspecified
CPT/HCPCS: 99203

== ENCOUNTER → 2022-11-10 09:46 | Outpatient (BNVA) | payer OTHER, MEDICAID, SELFPAY | PROVIDERS: PCP Internal Medicine; Visit Provider Nurse Practitioner Family | DX: G47.33 Obstructive sleep apnea (adult) (pediatric) (principal); E66.9 Obesity, unspecified; Z68.41 Body mass index [BMI] 40.0-44.9, adult | CPT/HCPCS: 99202 ==

== ENCOUNTER 2022-11-17 07:56 | Outpatient (REF) | payer OTHER, MEDICAID, SELFPAY ==
--- NOTE | ~2022-11-17 | XR_ITS ---
EXAMINATION: XR WRIST, LEFT CLINICAL INFORMATION: Pain COMPARISON: Wrist radiographs 05/10/2022 TECHNIQUE: 4 views of the wrist XR/XR wrist LT min 3V FINDINGS/IMPRESSION: No acute fracture or dislocation. Status post ORIF of the distal radius with a chronic healed fracture deformity. No evidence of hardware fracture or complication. Remote ulnar styloid avulsion fracture again seen. There is degenerative changes of the first carpometacarpal joint with near complete loss of joint space similar to prior. Soft tissues are unremarkable.
--- NOTE | ~2022-11-17 | CT_ITS ---
EXAMINATION: CT CHEST WITHOUT CONTRAST CLINICAL INFORMATION: Post Covid condition COMPARISON: Previous chest CTA December 2021 TECHNIQUE: Multidetector volumetric CT imaging of the chest was done. Axial MIP volume rendering provided. Sagittal and coronal reformatted images were obtained. This CT examination was performed using dose optimization techniques as appropriate, variously including the following: *Automated exposure control *Adjustment of mA and/or kV according to patient size (this includes techniques or standardized protocols for targeted exams where dose is matched to indication/reason for exam; i.e. extremities or head) *Use of iterative reconstruction technique DLP: 267 mGy-cm FINDINGS: IT RISK ANALYST: Low lung volumes. LUNGS: Patchy areas of increased attenuation, question representing pneumonitis versus areas of dependent atelectasis or hypoventilatory changes. 5 mm right lower lobe nodule axial image 233 series 6. MEDIASTINUM: Upper normal heart size. No pericardial effusion. Normal caliber thoracic aorta. No enlarged hilar or mediastinal lymph nodes. CORONARY ARTERY CALCIFICATION: None visualized on this study. PLEURA: There is no pleural effusion. No pleural mass or thickening. AXILLA: No lymphadenopathy. UPPER ABDOMEN: Low-attenuation liver suggestive of fatty infiltration. The gallbladder has been removed. The liver may be enlarged. OSSEOUS STRUCTURES: Degenerative changes of the thoracic spine and increased kyphosis. CT/CT chest wo IV con IMPRESSION: Low lung volumes. Patchy areas of increased attenuation question representing dependent atelectasis or hypoventilatory changes versus pneumonitis. 5 mm solitary right lower lobe nodule. According to the UPDATED 2017 Fleischner Society recommendations, the advised follow-up imaging for less than 6 mm solid nodule: Low risk, no chest CT follow-up and high risk, optional chest CT follow-up in one year. Fleischner guidelines were followed.
== END 2022-11-17 07:57 | disposition home or self-care (01) ==
LOC: HO.LAB 07:56
PROVIDERS: PCP Internal Medicine; Visit Provider Internal Medicine Pulmonary Disease
DX: M25.532 Pain in left wrist (principal); U09.9 Post COVID-19 condition, unspecified
CPT/HCPCS: 71250; 73110

== ENCOUNTER 2022-11-28 08:42 | Outpatient (REF) | payer OTHER, SELFPAY ==
[2022-11-28 18:51] LABS: CT PCR NOT DETECTED (Not Detect.); NG PCR NOT DETECTED (Not Detect.)
[2022-11-29 10:05] LABS: BV Int Neg Control Negative (Negative); BV Int Pos Control Positive (Positive)
== END 2022-11-28 08:43 | disposition home or self-care (01) ==
LOC: HO.LNP 08:42
PROVIDERS: PCP Internal Medicine; Visit Provider Obstetrics & Gynecology
DX: Z01.419 Encounter for gynecological examination (general) (routine) without abnormal findings (principal); Z11.3 Encounter for screening for infections with a predominantly sexual mode of transmission
CPT/HCPCS: 0353U; 87480; 87510; 87660

== ENCOUNTER 2022-11-28 08:42 | Outpatient (AMB) | payer OTHER, SELFPAY ==
--- NOTE | 2022-11-28 08:47 | A.OFFVIS_ITS ---
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 No complaints. The patient is requesting STD screen Last Pap/HPV was in 03/29 was negative Last Mammogram was BI-RADS 1 in 09/29 Last Colonoscopy was negative in 09/28, the patient is the process of scheduling her next screening mammogram PFSH Medical History Abdominal cramping Arthritis COVID Epigastric pain Fibromyalgia GERD (gastroesophageal reflux disease) Hx of fracture of wrist Hx of sleep apnea Hx of vertigo Hypertension Microscopic hematuria Morbid obesity Osteoarthritis Pre-diabetes Primary osteoarthritis of knees, bilateral Stress incontinence Subcutaneous abscess Urgency incontinence Surgical History History of cholecystectomy (~2018) History of open reduction and internal fixation (ORIF) procedure Hx of colonoscopy Hx of tubal ligation Family History Father Stomach cancer Brother Stomach problems Mother Diabetes Social History (Updated 11/28/22 @ 08:52 by Elisabeth Hernandez CMA) Household Members: Family Housing: Apartment Do you presently have visiting nurse or other home services: No Alcohol intake: current Alcohol intake frequency: holidays/special occasions only Patient Tobacco Use Status: Former Tobacco user Quit Date: 30 yrs ago Tobacco use type: Cigarette Second Hand Smoke Exposure: No Advance Directives Date on File: 01/28/20 service: No Current occupational status: unemployed Sexually active: No Sexual orientation: Straight/Heterosexual Gender identity: Female Female Reproductive History Menstrual control method: permanent sterilization Total pregnancies: 4 Full term: 4 Number of Living Children: 4 Date of last pap smear: 04/01/20 Date of Mammogram: 09/02/21 Review of Systems Const All systems reviewed & are unremarkable except as noted in HPI and below Card Reports as per HPI Resp Reports as per HPI GI Reports as per HPI and Reports no additional complaints Reports as per HPI Physical Exam Vital Signs: Last Vital Signs BP 122/76 11/28/22 08:48 BMI result Body Mass Index 44.1 Const General: cooperative, healthy appearing and comfortable Chest Chest palpation & inspection: normal inspection of the chest and normal palpation of entire chest wall Breast/axilla inspection: normal inspection of the breasts and normal inspection of the axillae Breast/axilla palpation: normal palpation of the breasts, normal palpation of the axillae and no axillary lymphadenopathy Resp Effort & Inspection: normal respiratory effort Auscultation: clear to auscultation bilaterally Percussion: percussion normal Cardio Palpation: normal PMI Rate: regular rate Rhythm: regular rhythm Heart sounds: no murmurs and no rubs Peripheral pulses: Peripheral pulses 2+ throughout GI Inspection: Yes normal to inspection Palpation (GI): Soft to palpation, nontender, no guarding, not rigid and No hepatosplenomegaly present Percussion: Yes normal to percussion Auscultation: normal bowel sounds Rectal Exam - Female: deferred General: Yes bladder normal to palpation External Female Exam: No lesion Speculum Exam - Vagina: normal appearance of the vagina, normal palpation, normal vaginal discharge and not erythematous Speculum Exam - Cervix: normal appearance of the cervix and normal palpation Bimanual exam- vagina & uterus: normal bimanual exam, normal palpation, uterine size normal, bladder normal to palpation, consistency normal and normal palpation Bimanual Exam- Adnexa, other: normal adnexae, no masses and no tenderness Assessment & Plan Assessment & Plan (1) Well woman exam: Code(s): Z01.419 - Encounter for gynecological examination (general) (routine) without abnormal findings Plan: Co testing not indicated this. Counseled the patient about the recommended dietary allowance of 1200 mg of Calcium & 600 IU of vitamin D. Mammogram ordered , the patient is in the process of scheduling her appointment with for another screening colonoscopy . The patient was instructed to perform monthly self-breast exams and schedule annual exam in a year; all questions answered and the patient verbalized understanding. (2) Screen for STD (sexually transmitted disease): Code(s): Z11.3 - Encounter for screening for infections with a predominantly sexual mode of transmission Plan: STD screening tests done includes: BV panel for trichomonas, GC/CT will send patient for serology std screening for HIV, RPR, Hep b s Ag, HepC Ab. Instructions given the patient to schedule a follow-up appointment for repeat serology screen in 6 months for possible false negatives. Orders: Orders Bacterial Vaginosis Panel Today Z01.419 - Encounter for gynecological examination (general) (routine) without abnormal findings CT NG by PCR Today Z01.419 - Encounter for gynecological examination (general) (routine) without abnormal findings MM screening mammo BI Today Z12.31 - Encounter for screening mammogram for malignant neoplasm of breast Hepatitis B Surface Antigen Today Z20.2 - Contact with and (suspected) exposure to infections with a predominantly sexual mode of transmission Hepatitis C Antibody Today Z20.2 - Contact with and (suspected) exposure to infections with a predominantly sexual mode of transmission HIV Ab/Ag Today Z20.2 - Contact with and (suspected) exposure to infections with a predominantly sexual mode of transmission Syphilis Screen Today Z20.2 - Contact with and (suspected) exposure to infections with a predominantly sexual mode of transmission Coding Level of Care Code New Pt Prev Care 40-64y(16647) Diagnoses Well woman exam Z01.419 Screen for STD (sexually transmitted disease) Z11.3
[2022-11-28 08:48] VITALS: BP 122/76; BMI 44.1
== END 2022-11-28 09:22 | disposition home or self-care (01) ==
LOC: HO.HWS 08:42
PROVIDERS: PCP Internal Medicine; Visit Provider Obstetrics & Gynecology
DX: Z01.419 Encounter for gynecological examination (general) (routine) without abnormal findings (principal); Z11.3 Encounter for screening for infections with a predominantly sexual mode of transmission
CPT/HCPCS: 99386

== ENCOUNTER 2022-12-01 11:22 | Outpatient (REF) | payer OTHER, SELFPAY ==
[2022-12-02 03:49] LABS: Syphilis Screen Nonreactive (Nonreactive)
[2022-12-02 03:57] LABS: HBsAGNum1 0.34 S/CO (0.00-0.99); HIV AB/AG Nonreactive (Nonreactive); HIV Num 1 0.04 S/CO (0.00-0.99); Hepatitis B Surface Antigen Negative (Negative); ~HepC Num1 1.11 S/CO (0.00-0.79); ~Hepatitis C Antibody Reactive (Nonreactive)
== END 2022-12-01 11:23 | disposition home or self-care (01) ==
LOC: HO.LAB 11:22
PROVIDERS: Absent Provider Obstetrics & Gynecology; PCP Internal Medicine; Visit Provider Internal Medicine Pulmonary Disease
DX: Z11.4 Encounter for screening for human immunodeficiency virus [HIV] (principal); R06.09 Other forms of dyspnea; Z20.2 Contact with and (suspected) exposure to infections with a predominantly sexual mode of transmission
CPT/HCPCS: 36415; 86780; 86803; 87340; 87389; 99212

== ENCOUNTER 2022-12-01 11:22 | Outpatient (AMB) | payer OTHER, SELFPAY ==
[2022-12-01 11:30] VITALS: BP 142/94; PULSE 83; O2SAT 97; BMI 44.5
--- NOTE | 2022-12-01 11:30 | MHC.OFFVIS ---
Intake Vital Signs 12/01/22 11:30 Height 5 ft 6 in Weight 275 lb 9.245 oz BMI 44.5 BP 142/94 H Blood Pressure Location Rt brachial Position Sitting Pulse 83 Pulse Source Doppler Pulse Oximetry (%) 97 Oxygen Delivery Method Room Air Intake Visit Reasons: Shortness of breath Allergies No Known Allergies [No Known Allergies*] Allergy (Verified 12/01/22 11:33) HPI Shortness of breath HPI Details 57-year-old lady, remote, greater than 30 years ago, 10 pack-year smoker, with underlying obesity and moderate obstructive sleep apnea pending receipt of her CPAP machine and pulmonary component of dyspnea on exertion. Patient did have several bouts of COVID with worsening of her underlying dyspnea. After the last office visit she continues on Advair 500 and albuterol MDI with reasonable control of her reactive airway disease symptoms. She did complete her CT chest that showed no underlying early fibrosis. Her 2D echocardiogram and pulmonary function test are pending. [facility] Medical History Abdominal cramping Arthritis COVID Epigastric pain Fibromyalgia GERD (gastroesophageal reflux disease) Hx of fracture of wrist Hx of sleep apnea Hx of vertigo Hypertension Microscopic hematuria Morbid obesity Osteoarthritis Pre-diabetes Primary osteoarthritis of knees, bilateral Stress incontinence Subcutaneous abscess Urgency incontinence Surgical History History of cholecystectomy (~2019) History of open reduction and internal fixation (ORIF) procedure Hx of colonoscopy Hx of tubal ligation Family History Father Stomach cancer Brother Stomach problems Mother Diabetes Social History Household Members: Family Housing: Apartment Do you presently have visiting nurse or other home services: No Alcohol intake: current Alcohol intake frequency: holidays/special occasions only Patient Tobacco Use Status: Former Tobacco user Quit Date: 30 yrs ago Tobacco use type: Cigarette Second Hand Smoke Exposure: No Advance Directives Date on File: 01/28/20 service: No Current occupational status: unemployed Sexual orientation: Straight/Heterosexual Gender identity: Female Review of Systems Const Denies daytime sleepiness, Denies excessive sweating, Denies fatigue, Denies fever(s), Denies lethargy, Denies malaise, Denies night sweats, Denies snoring and Denies weight loss Eyes Denies blurry vision and Denies itchy eyes ENT Denies nasal congestion, Denies post nasal drip, Denies sinus pain, Denies sinus pressure and Denies other ( Thrush) Card Denies chest pain, Denies pedal edema, Denies dyspnea, Denies orthopnea and Denies paroxysmal nocturnal dyspnea Resp Denies cough, Denies hemoptysis, Denies excessive phlegm production, Denies dyspnea, Denies snoring and Denies wheezing GI Denies abdominal pain and Denies heartburn Musc Denies myalgias, Denies arthralgias and Denies joint swelling Skin/Breast Denies rash Neuro Denies memory loss and Denies seizure-like activity Psych Denies abnormal sleep pattern, Denies anxiety and Denies memory loss Endo Denies excessive sweating, Denies fatigue and Denies heat intolerance Segun/Lymph Denies easy bruising Aller/Immun Denies itchy eyes, Denies seasonal rhinorrhea and Denies wheezing Physical Exam Vital Signs: Last Vital Signs Pulse 83 12/01/22 11:30 BP 142/94 H 12/01/22 11:30 Pulse Ox 97 12/01/22 11:30 Oxygen Delivery Method Room Air 12/01/22 11:30 BMI result Body Mass Index 44.5 Const General: no acute distress and alert Nutritional Appearance: obese Orientation/consciousness: Other orientation findings ( oriented) HEENT Head: Yes atraumatic Eyes General: appearance normal, both eyes and all related structures Sclerae: sclerae normal EOM: EOMs intact bilaterally Neck Neck: Yes supple Lymphatic: no lymphadenopathy noted Resp Effort & Inspection: normal respiratory effort and no use of accessory muscles Auscultation: clear to auscultation bilaterally Cardio Rate: regular rate Rhythm: regular rhythm Heart sounds: no gallops, no murmurs and no rubs Skin General skin exam: other ( warm) Extrem General: No clubbing, No cyanosis and No edema Assessment & Plan Assessment & Plan (1) Asthma: Code(s): J45.909 - Unspecified asthma, uncomplicated Plan: Pulmonary function test is still pending. Symptoms are well controlled on Advair 500 and albuterol MDI. (2) TOUSSAINT (dyspnea on exertion): Code(s): R06.09 - Other forms of dyspnea Plan: Results of CT chest reviewed, no evidence of early fibrosis. 2D echocardiogram is pending. Coding Level of Care Code Est Pt Level 4 (13706) Diagnoses Asthma J45.909 TOUSSAINT (dyspnea on exertion) R06.09
== END 2022-12-01 11:44 | disposition home or self-care (01) ==
PROVIDERS: PCP Internal Medicine; Visit Provider Internal Medicine Pulmonary Disease
DX: J45.909 Unspecified asthma, uncomplicated (principal); R06.09 Other forms of dyspnea
CPT/HCPCS: 99214

== ENCOUNTER 2022-12-21 09:25 | Outpatient (REF) | payer OTHER, SELFPAY ==
[2022-12-22 11:36] LABS: BV Int Neg Control Negative (Negative); BV Int Pos Control Positive (Positive)
== END 2022-12-21 09:26 | disposition home or self-care (01) ==
LOC: HO.LNP 09:25
PROVIDERS: PCP Internal Medicine; Visit Provider Obstetrics & Gynecology
DX: A59.9 Trichomoniasis, unspecified (principal); R76.8 Other specified abnormal immunological findings in serum; Z20.2 Contact with and (suspected) exposure to infections with a predominantly sexual mode of transmission
CPT/HCPCS: 87480; 87510; 87660; 99212

== ENCOUNTER 2022-12-21 09:25 | Outpatient (AMB) | payer OTHER, SELFPAY ==
[2022-12-21 10:06] VITALS: BP 132/80; BMI 44.5
--- NOTE | 2022-12-21 10:06 | A.OFFVIS_ITS ---
Intake Vital Signs 12/21/22 10:06 Height 5 ft 6 in Weight 276 lb BMI 44.5 BP 132/80 Intake Visit Reasons: 2 WEEKS MAKENZIE Dentistry Teacher Required: Yes Dentistry Teacher Language: Aadc Plans Staff Officer Name: Elisabeth Hernandez Information Interpreted: non-clinical & clinical Teacher Dramatics: Teacher Dramatics Present (Elisabeth) Allergies No Known Allergies [No Known Allergies*] Allergy (Verified 12/21/22 10:07) Is last menstrual period known: No Post menopausal: Yes Patient : No HPI HPI Comments History of Present Illness Details Presenting for a test of cure for positive Trichomonas. Hepatitis-C antibody was positive. Otherwise all other STDs are negative. The patient took Flagyl 500 mg p.o. b.i.d. for 7 days, informed her partner and did not have unprotected intercourse since then. PFS Medical History Urgency incontinence Microscopic hematuria Stress incontinence Hx of fracture of wrist Hx of sleep apnea Hx of vertigo COVID GERD (gastroesophageal reflux disease) Pre-diabetes Epigastric pain Abdominal cramping Primary osteoarthritis of knees, bilateral Morbid obesity Subcutaneous abscess Osteoarthritis Fibromyalgia Arthritis Hypertension Surgical History History of open reduction and internal fixation (ORIF) procedure Hx of tubal ligation Hx of colonoscopy History of cholecystectomy (~2018) Family History Father Stomach cancer Brother Stomach problems Mother Diabetes Social History Household Members: Family Housing: Apartment Do you presently have visiting nurse or other home services: No Alcohol intake: current Alcohol intake frequency: holidays/special occasions only Patient Tobacco Use Status: Former Tobacco user Quit Date: 30 yrs ago Tobacco use type: Cigarette Second Hand Smoke Exposure: No Advance Directives Date on File: 01/28/20 Patient : No service: No Current occupational status: unemployed Sexual orientation: Straight/Heterosexual Gender identity: Female Female Reproductive History Menstrual Date of last pap smear: 04/01/20 (negative) Date of Mammogram: 09/23/21 Review of Systems Const All systems reviewed & are unremarkable except as noted in HPI and below Physical Exam Vital Signs: Last Vital Signs BP 132/80 12/21/22 10:06 BMI result Body Mass Index 44.5 General: Yes no CVA tenderness External Female Exam: normal external appearance and normal appearance of the urethra Speculum Exam - Vagina: normal appearance of the vagina, normal palpation, no lesions and no masses Speculum Exam - Cervix: normal appearance of the cervix, normal palpation, no lesions, no masses and nontender Bimanual exam- vagina & uterus: normal bimanual exam, normal palpation, uterine size normal, normal palpation, uterine shape normal, No Cervical tenderness present and non-tender Bimanual Exam- Adnexa, other: normal adnexae Back/Spine/Pelvis Back: no CVA tenderness Assessment & Plan Assessment & Plan (1) Trichomonal infection: Code(s): A59.9 - Trichomoniasis, unspecified Plan: BV panel repeated for test of cure. Will check the results and treat accordingly. (2) Hepatitis C antibody positive in blood: Code(s): R76.8 - Other specified abnormal immunological findings in serum Plan: Discussed with the patient the positive hepatitis-C antibody, will order HCV RNA and refer to PCP for further management, the patient has an appointment with her PCP in 2 weeks. Instructed the patient to call our office back in case she was not able to see her PCP , or if her appointment was missed or canceled so that we will assist on rescheduling another appointment, the patient verbalized understanding agreed with the plan. All questions answered, the patient verbalized understanding Orders: Orders HCV RNA QN PROG TO GENOTYPE Today A59.9 - Trichomoniasis, unspecified, R76.8 - Other specified abnormal immunological findings in serum Coding Level of Care Code Est Pt Level 3 (14437) Diagnoses Trichomonal infection A59.9 Hepatitis C antibody positive in blood R76.8
== END 2022-12-21 10:24 | disposition home or self-care (01) ==
LOC: HO.HWS 09:25
PROVIDERS: PCP Internal Medicine; Visit Provider Obstetrics & Gynecology
DX: A59.9 Trichomoniasis, unspecified (principal); R76.8 Other specified abnormal immunological findings in serum
CPT/HCPCS: 99213

== ENCOUNTER 2022-12-21 10:37 | Outpatient (REF) | payer OTHER, SELFPAY ==
[2022-12-21 11:55] LABS: HBsAGNum1 0.25 S/CO (0.00-0.99); HIV AB/AG Nonreactive (Nonreactive); HIV Num 1 0.05 S/CO (0.00-0.99); Hepatitis B Surface Antigen Negative (Negative); Syphilis Screen Reactive (Nonreactive); ~HepC Num1 1.63 S/CO (0.00-0.79); ~Hepatitis C Antibody Reactive (Nonreactive)
[2022-12-22 18:04] LABS: HCV RNA PCR Qn <1.18 NOT DETECTED Log IU/mL (NOT DETECTED); HCV RNA PCR Qn <15 NOT DETECTED IU/mL (NOT DETECTED)
[2022-12-27 12:03] LABS: RPR Quantitative Reactive 1:1 (Nonreactive); T.Pallidum Particle Agg Test Reactive (Nonreactive)
== END 2022-12-21 10:38 | disposition home or self-care (01) ==
LOC: HO.LAB 10:37
PROVIDERS: PCP Internal Medicine; Visit Provider Obstetrics & Gynecology
DX: R76.8 Other specified abnormal immunological findings in serum (principal); A59.9 Trichomoniasis, unspecified; Z20.2 Contact with and (suspected) exposure to infections with a predominantly sexual mode of transmission
CPT/HCPCS: 36415; 86592; 86780; 86803; 87340; 87389; 87522

== ENCOUNTER 2022-12-30 08:06 | Outpatient (REF) | payer OTHER, SELFPAY ==
--- NOTE | 2022-12-30 08:51 | CA_ITS ---
Transthoracic Echocardiogram Patient (Last, First, Middle): Chelsi Connors D Gender: Female Date of : 1965 Age: 57 Procedure Date: 12/30/2022 Procedure Type: Transthoracic Echocardiogram Location: OP Height: 170.18 cm Weight: 120.2 kg BSA: 2.28 m2 Heart Rate: 92 bpm BP: 132 / 80 mmHg Field Placement Director: SB Referring MD: Marco Mendoza MD Symptoms: R06.09 - Other forms of dyspnea Study Quality: Adequate ECG Rhythm: Sinus Conclusions: - Normal left ventricular size and systolic function. There is severely increased left ventricular wall thickness. The visually estimated ejection fraction is between 60-65%. - E/E prime ratio is between 8 and 15 consistent with indeterminate filling pressures. - Normal right ventricular cavity size and systolic function. - There is mild dilatation of the ascending aorta measuring 3.60 cm. Findings Left Ventricle Normal left ventricular size and systolic function. There is severely increased left ventricular wall thickness. The visually estimated ejection fraction is between 60-65%. There is no evidence of regional wall motion abnormalities. Abnormal diastolic function is noted. Spectral Doppler is indicative of an impaired relaxation filling pattern. E/E prime ratio is between 8 and 15 consistent with indeterminate filling pressures. Right Ventricle Normal right ventricular cavity size and systolic function. Atria The left atrium is normal in size. Aortic Valve There is a normal trileaflet aortic valve. There is no aortic valve stenosis. There is no aortic valve regurgitation. Mitral Valve The mitral valve appears normal. There is no mitral valve regurgitation. There is no mitral valve stenosis. Pulmonic Valve The pulmonic valve is likely normal. Tricuspid Valve Normal tricuspid valve structure and function. There is no tricuspid valve regurgitation. Tricuspid regurgitation envelope is inadequate for calculation of right ventricular systolic pressure. Normal right atrial pressure. Great Vessels There is mild dilatation of the ascending aorta measuring 3.60 cm. The visualized portions of the pulmonary artery and branches are normal. Venous The inferior vena cava is normal in size and collapses greater than 50% with inspiration. Pericardium/Pleural There is no evidence of pericardial effusion. Prior Study Comparison Changes noted compared to prior study dated: 08/07/2019. Severe LVH present Measurements 2D Linear Measurements IVSd: 1.70 0.6-0.9/0.6-1.0 cm LVIDd: 4.30 3.9-5.3/4.2-5.9 cm LVIDd Index: 1.89 2.4-3.2/2.2-3.1 cm/m2 LVIDs: 3.30 2.0-3.6 cm LVPWd: 1.40 0.7-1.1 cm LA Diam: 4.20 2.7-3.8/3.0-4.0 cm LAIDs Index: 1.84 1.5-2.3 cm/m2 LV Mass: 338.75 67-162/88-224 g LV Mass Index: 148.57 43-95/49-115 g/m2 LVOT Diam: 2.50 3.0+(-)1.3 cm 2D Systolic Function EF 4C: 58.20 >55% EF 2C: 47.50 >55% EF BiP: 53.50 >55% Mitral Valve MV Pk E: 0.61 MV PK A: 0.80 MV Decel Time: 136.00 E/A: 0.80 E'Lateral: 6.42 E'Medial: 4.79 E/E' Med: 12.70 E/E' Lat: 9.40 PHT: 40.00 MVA PHT: 5.50 Decel Leslie: 4.46 Aortic Valve AoV Pk Fernando: 1.49 AoV Mn Fernando: 1.06 AoV VTI: 0.25 AoV Pk Grad: 9.00 Aov Mn Grad: 5.00 ZOYA Cont.VTI: 2.79 LVOT LVOT Pk Fernando: 0.76 LVOT Mn Fernando: 0.58 LVOT VTI: 0.14 LVOT Pk Grad: 2.00 LVOT Mn Grad: 1.00 LVOT Diam: 2.50 LVOT Area: 4.91 Diastolic Function MV Pk E: 0.61 MV Pk A: 0.80 E/A: 0.80 E'Medial: 4.79 E/E' Med: 12.70 E' Laterial: 6.42 E/E' Lat: 9.40 Right Ventricle TAPSE (mm): 16.00 TVS' Fernando: 9.79 Tricuspid Valve RA Press: 3.00 Great Vessels Aorta Sinus of Valsalva: 3.30 2.0-3.5 cm Ao Asc: 3.60 2.1-3.4 cm Pulmonary Valve PV Pk Fernando: 0.84 Peak PV Grad: 3.00 Updated in Other Vendor System with Status of Final Shadi Carrasco MD electronically signed on 01/01/2023 4:56:18 PM with status of Final
--- NOTE | 2022-12-30 10:01 | PFT_ITS ---
FLOWS: 1. FEV1 90% of predicted at 2.51 L. 2. FVC 86% of predicted at 3.01 L. 3. FEV1 to FVC ratio of 0.83. 4. No bronchodilator response. LUNG VOLUMES: 1. Total lung capacity 75% of predicted at 4.02 L. 2. Residual volume 40% of predicted at 0.62 L. 3. Slow vital capacity 103% of predicted at 3.40 L. 4. Expiratory reserve volume 51% of predicted at 0.50 L. 5. Diffusion capacity is normal. IMPRESSION: Mild restrictive ventilatory defect with no bronchodilator response. Decreased expiratory reserve volume suggests extrathoracic restriction likely secondary to abdominal obesity. Marco Mendoza MD AP/MODL / [id number]
== END 2022-12-30 08:07 | disposition home or self-care (01) ==
LOC: HO.RESP 08:06
PROVIDERS: PCP Internal Medicine; Visit Provider Internal Medicine Pulmonary Disease
DX: J45.909 Unspecified asthma, uncomplicated (principal); R06.09 Other forms of dyspnea; A53.9 Syphilis, unspecified
CPT/HCPCS: 93306; 94010; 94727; 94729

== ENCOUNTER → 2022-12-30 08:51 | Outpatient (BNV) | payer OTHER, SELFPAY | PROVIDERS: PCP Internal Medicine; Visit Provider Internal Medicine Cardiovascular Disease | DX: R06.09 Other forms of dyspnea (principal) | CPT/HCPCS: 93306 ==

== ENCOUNTER → 2022-12-30 10:01 | Outpatient (BNV) | payer OTHER, SELFPAY | PROVIDERS: PCP Internal Medicine; Visit Provider Internal Medicine Pulmonary Disease | DX: R06.09 Other forms of dyspnea (principal) | CPT/HCPCS: 94060; 94727; 94729 ==

== ENCOUNTER 2022-12-30 14:04 | Outpatient (AMB) | payer OTHER, SELFPAY ==
[2022-12-30 14:09] VITALS: BP 128/90; PULSE 121; O2SAT 96; BMI 45.7
--- NOTE | 2022-12-30 14:09 | A.OFFVIS_ITS ---
Intake Vital Signs 12/30/22 14:09 Height 5 ft 6 in Weight 283 lb BMI 45.7 BP 128/90 H Blood Pressure Location Lt brachial Position Sitting Pulse 121 H Pulse Source Pulse Oximeter Pulse Oximetry (%) 96 Intake Visit Reasons: Ref.,Syphilis Documentation Consultant Required: Yes Documentation Consultant Name: Adan Martines CMA Allergies No Known Allergies [No Known Allergies*] Allergy (Verified 12/30/22 14:21) HPI Ref.,Syphilis HPI Details She is sent from [employer] due to positive RPR at 1:1. She says she was never told she had or was treated for syphilis. She has no rash or fevers, sores or vaginal discharge. She has been HIV negative on 12/21 and Hepatitis C antibody positive but viral load negative and was never treated. She says she had oral sex with one partner four months ago and declines Prep since isnt with person any more. [facility] Medical History Urgency incontinence Microscopic hematuria Stress incontinence Hx of fracture of wrist Hx of sleep apnea Hx of vertigo COVID GERD (gastroesophageal reflux disease) Pre-diabetes Epigastric pain Abdominal cramping Primary osteoarthritis of knees, bilateral Morbid obesity Subcutaneous abscess Osteoarthritis Fibromyalgia Arthritis Hypertension Surgical History History of open reduction and internal fixation (ORIF) procedure Hx of tubal ligation Hx of colonoscopy History of cholecystectomy (~2018) Family History Father Stomach cancer Brother Stomach problems Mother Diabetes Social History Household Members: Family Housing: Apartment Do you presently have visiting nurse or other home services: No Alcohol intake: current Alcohol intake frequency: holidays/special occasions only Patient Tobacco Use Status: Former Tobacco user Quit Date: 30 yrs ago Tobacco use type: Cigarette Second Hand Smoke Exposure: No Advance Directives Date on File: 01/28/20 service: No Current occupational status: unemployed Sexual orientation: Straight/Heterosexual Gender identity: Female Review of Systems Const All systems reviewed & are unremarkable except as noted in HPI and below Physical Exam Vital Signs: Last Vital Signs Pulse 121 H 12/30/22 14:09 BP 128/90 H 12/30/22 14:09 Pulse Ox 96 12/30/22 14:09 BMI result Body Mass Index 45.7 Const General: cooperative Orientation/consciousness: patient oriented x3 HEENT Head: Yes normal to inspection Face and sinus: Yes normal facial exam Mouth: Normal oral and palatal mucosa present Teeth and gingiva: dentition normal Eyes General: appearance normal, both eyes and all related structures Pupils: Equal, round and reactive pupils present Resp Effort & Inspection: normal respiratory effort Cardio Rate: regular rate Rhythm: regular rhythm GI Palpation (GI): Soft to palpation and nontender General: Yes no CVA tenderness Back/Spine/Pelvis Back: no CVA tenderness Skin General skin exam: no rashes or lesions noted Neuro General: patient oriented x3 and moves all extremities Cranial nerves: Yes Equal, round and reactive pupils present Extrem General: Yes normal to inspection Psych Appearance: grossly normal Assessment & Plan Assessment & Plan (1) 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 I left message for Alexandra at [facility]. Code(s): A53.9 - Syphilis, unspecified Plan: Three weekly shots of PCN (no ear or eye involvement) unless [facility] reveals already treated. Recheck RPR in three months. 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
== END 2022-12-30 16:51 | disposition home or self-care (01) ==
LOC: HO.HID 14:04
PROVIDERS: PCP Internal Medicine; Visit Provider Internal Medicine
DX: A53.9 Syphilis, unspecified (principal)
CPT/HCPCS: 99203

== ENCOUNTER 2023-01-25 13:28 | Outpatient (AMB) | payer OTHER, SELFPAY ==
[2023-01-25 13:27] VITALS: BP 140/98; PULSE 86; O2SAT 98; BMI 45.3
--- NOTE | 2023-01-25 13:27 | MHC.OFFVIS ---
Intake Vital Signs 01/25/23 13:27 Height 5 ft 6 in Weight 281 lb BMI 45.3 BP 140/98 H Blood Pressure Location Lt brachial Pulse 86 Pulse Source Pulse Oximeter Pulse Oximetry (%) 98 Intake Visit Reasons: syphilis/inj. Physical Education Department Chair Required: Yes Physical Education Department Chair Name: Adan Martines CMA Allergies No Known Allergies [No Known Allergies*] Allergy (Verified 12/30/22 14:21) PFSH Medical History Urgency incontinence Microscopic hematuria Stress incontinence Hx of fracture of wrist Hx of sleep apnea Hx of vertigo COVID GERD (gastroesophageal reflux disease) Pre-diabetes Epigastric pain Abdominal cramping Primary osteoarthritis of knees, bilateral Morbid obesity Subcutaneous abscess Osteoarthritis Fibromyalgia Arthritis Hypertension Surgical History History of open reduction and internal fixation (ORIF) procedure Hx of tubal ligation Hx of colonoscopy History of cholecystectomy (~2018) Family History Father Stomach cancer Brother Stomach problems Mother Diabetes Social History Household Members: Family Housing: Apartment Do you presently have visiting nurse or other home services: No Alcohol intake: current Alcohol intake frequency: holidays/special occasions only Patient Tobacco Use Status: Former Tobacco user Quit Date: 30 yrs ago Tobacco use type: Cigarette Second Hand Smoke Exposure: No Advance Directives Date on File: 01/28/20 service: No Current occupational status: unemployed Sexual orientation: Straight/Heterosexual Gender identity: Female Physical Exam Vital Signs: Last Vital Signs Pulse 86 01/25/23 13:27 BP 140/98 H 01/25/23 13:27 Pulse Ox 98 01/25/23 13:27 BMI result Body Mass Index 45.3 Office Meds penicillin G benzathine 2,400,000 unit/4 mL intramuscular syringe Performing Provider: Macey Mcdaniel MD Performing Location: [facility] Administered by: Karen Leger on 01/25/23 14:13 Dose Route Admin Location Dispensed Lot Number Expiration Date [facility] Pressure Tester Operator 2.4 mmu IM RGM 4 mL [id number] 02/07/25 99056-831-38 [employer] Assessment & Plan Assessment & Plan (1) 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 I left message for Alexandra at [facility]. 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
== END 2023-01-25 14:20 | disposition home or self-care (01) ==
PROVIDERS: PCP Internal Medicine; Visit Provider Internal Medicine
DX: A53.9 Syphilis, unspecified (principal)

== ENCOUNTER → 2023-01-25 13:28 | Outpatient (BNVA) | payer OTHER, SELFPAY | PROVIDERS: PCP Internal Medicine; Visit Provider Internal Medicine | DX: A53.9 Syphilis, unspecified (principal) | CPT/HCPCS: J0561 ==

== ENCOUNTER 2023-01-26 09:05 | Outpatient (AMB) | payer OTHER, SELFPAY ==
--- NOTE | 2023-01-26 09:17 | MHC.OFFVIS ---
Intake Vital Signs 01/26/23 09:19 Height 5 ft 6 in Weight 281 lb BMI 45.3 BP 108/72 Blood Pressure Location Lt brachial Position Sitting Pulse 75 Pulse Source Doppler Pulse Oximetry (%) 97 Oxygen Delivery Method Room Air Intake Visit Reasons: Shortness of breath President Financial Institution Required: Yes President Financial Institution Name: Kiana Jacome Jelani Allergies No Known Allergies [No Known Allergies*] Allergy (Verified 01/26/23 09:22) HPI Shortness of breath HPI Details 57-year-old lady, remote, greater than 30 years ago, 10 pack-year smoker, with underlying obesity and moderate obstructive sleep apnea pending receipt of her CPAP machine and pulmonary component of dyspnea on exertion. Patient did have several bouts of COVID with worsening of her underlying dyspnea. She continues on Advair and albuterol MDI with good control of her underlying pulmonary symptoms. She also has been using CPAP that is managed by her neurologist with excellent control of her underlying sleep apnea. Patient did complete her 2D echocardiogram that shows underlying diastolic dysfunction. Her pulmonary function test is pending. [facility] Medical History Urgency incontinence Microscopic hematuria Stress incontinence Hx of fracture of wrist Hx of sleep apnea Hx of vertigo COVID GERD (gastroesophageal reflux disease) Pre-diabetes Epigastric pain Abdominal cramping Primary osteoarthritis of knees, bilateral Morbid obesity Subcutaneous abscess Osteoarthritis Fibromyalgia Arthritis Hypertension Surgical History History of open reduction and internal fixation (ORIF) procedure Hx of tubal ligation Hx of colonoscopy History of cholecystectomy (~2018) Family History Father Stomach cancer Brother Stomach problems Mother Diabetes Social History Household Members: Family Housing: Apartment Do you presently have visiting nurse or other home services: No Alcohol intake: current Alcohol intake frequency: holidays/special occasions only Patient Tobacco Use Status: Former Tobacco user Quit Date: 30 yrs ago Tobacco use type: Cigarette Second Hand Smoke Exposure: No Advance Directives Date on File: 01/28/20 service: No Current occupational status: unemployed Sexual orientation: Straight/Heterosexual Gender identity: Female Review of Systems Const Denies daytime sleepiness, Denies excessive sweating, Denies fatigue, Denies fever(s), Denies lethargy, Denies malaise, Denies night sweats, Denies snoring and Denies weight loss Eyes Denies blurry vision and Denies itchy eyes ENT Denies nasal congestion, Denies post nasal drip, Denies sinus pain, Denies sinus pressure and Denies other ( Thrush) Card Denies chest pain, Denies pedal edema, Denies dyspnea, Denies orthopnea and Denies paroxysmal nocturnal dyspnea Resp Denies cough, Denies hemoptysis, Denies excessive phlegm production, Denies dyspnea, Denies snoring and Denies wheezing GI Denies abdominal pain and Denies heartburn Musc Denies myalgias, Denies arthralgias and Denies joint swelling Skin/Breast Denies rash Neuro Denies memory loss and Denies seizure-like activity Psych Denies abnormal sleep pattern, Denies anxiety and Denies memory loss Endo Denies excessive sweating, Denies fatigue and Denies heat intolerance Segun/Lymph Denies easy bruising Aller/Immun Denies itchy eyes, Denies seasonal rhinorrhea and Denies wheezing Physical Exam Vital Signs: Last Vital Signs Pulse 75 01/26/23 09:19 BP 108/72 01/26/23 09:19 Pulse Ox 97 01/26/23 09:19 Oxygen Delivery Method Room Air 01/26/23 09:19 BMI result Body Mass Index 45.3 Const General: no acute distress and alert Nutritional Appearance: obese Orientation/consciousness: Other orientation findings ( oriented) HEENT Head: Yes atraumatic Eyes General: appearance normal, both eyes and all related structures Sclerae: sclerae normal EOM: EOMs intact bilaterally Neck Neck: Yes supple Lymphatic: no lymphadenopathy noted Resp Effort & Inspection: normal respiratory effort and no use of accessory muscles Auscultation: clear to auscultation bilaterally Cardio Rate: regular rate Rhythm: regular rhythm Heart sounds: no gallops, no murmurs and no rubs Skin General skin exam: other ( warm) Extrem General: No clubbing, No cyanosis and No edema Assessment & Plan Assessment & Plan (1) Asthma: Code(s): J45.909 - Unspecified asthma, uncomplicated Plan: Well controlled current regimen of Advair and albuterol MDI. Continue current regimen. (2) TOUSSAINT (dyspnea on exertion): Code(s): R06.09 - Other forms of dyspnea Plan: Pulmonary component is well controlled. 2D echocardiogram reviewed, underlying diastolic dysfunction. Continue to monitor clinically. Coding Level of Care Code Est Pt Level 4 (28916) Diagnoses Asthma J45.909 TOUSSAINT (dyspnea on exertion) R06.09
[2023-01-26 09:19] VITALS: BP 108/72; PULSE 75; O2SAT 97; BMI 45.3
== END 2023-01-26 09:41 | disposition home or self-care (01) ==
PROVIDERS: PCP Internal Medicine; Visit Provider Internal Medicine Pulmonary Disease
DX: J45.909 Unspecified asthma, uncomplicated (principal); R06.09 Other forms of dyspnea
CPT/HCPCS: 99214

== ENCOUNTER → 2023-01-26 09:05 | Outpatient (BNVA) | payer OTHER, SELFPAY | PROVIDERS: PCP Internal Medicine; Visit Provider Internal Medicine Pulmonary Disease | DX: J45.909 Unspecified asthma, uncomplicated (principal); R06.09 Other forms of dyspnea | CPT/HCPCS: 99212 ==

== ENCOUNTER 2023-02-01 13:13 | Outpatient (AMB) | payer OTHER, SELFPAY ==
[2023-02-01 13:30] VITALS: BP 154/98; PULSE 111; O2SAT 96; BMI 45.8
--- NOTE | 2023-02-01 13:30 | AM.OFFVISNUR ---
Intake Vital Signs 02/01/23 13:30 Height 5 ft 6 in Weight 128.82 kg BMI 45.8 BP 154/98 H Blood Pressure Location Lt brachial Position Sitting Pulse 111 H Pulse Oximetry (%) 96 Intake Visit Reasons: syphilis/inj. Building Energy Consultant Required: Yes Building Energy Consultant Name: Adan Martines CMA Allergies No Known Allergies [No Known Allergies*] Allergy (Verified 02/01/23 13:31) Coding
== END 2023-02-01 14:35 | disposition home or self-care (01) ==
PROVIDERS: PCP Internal Medicine; Visit Provider Internal Medicine
DX: A53.9 Syphilis, unspecified (principal)

== ENCOUNTER → 2023-02-01 13:13 | Outpatient (BNVA) | payer OTHER, SELFPAY | PROVIDERS: PCP Internal Medicine; Visit Provider Internal Medicine | DX: A53.9 Syphilis, unspecified (principal) | CPT/HCPCS: 96372; J0561 ==

== ENCOUNTER 2023-02-08 13:08 | Outpatient (AMB) | payer OTHER, SELFPAY ==
[2023-02-08 13:22] VITALS: PULSE 86; O2SAT 98; BMI 44.7
--- NOTE | 2023-02-08 13:22 | AM.OFFVISNUR ---
Intake Vital Signs 02/08/23 13:22 Height 5 ft 6 in Weight 125.645 kg BMI 44.7 Pulse 86 Pulse Source Pulse Oximeter Pulse Oximetry (%) 98 Intake Visit Reasons: syphilis injection Cementer Machine Required: Yes Cementer Machine Name: Adan Martines CMA Allergies No Known Allergies [No Known Allergies*] Allergy (Verified 02/01/23 13:31) Coding
== END 2023-02-08 14:12 | disposition home or self-care (01) ==
PROVIDERS: PCP Internal Medicine; Visit Provider Internal Medicine
DX: A53.9 Syphilis, unspecified (principal)

== ENCOUNTER → 2023-02-08 13:08 | Outpatient (BNVA) | payer OTHER, SELFPAY | PROVIDERS: PCP Internal Medicine; Visit Provider Internal Medicine | DX: A53.9 Syphilis, unspecified (principal) | CPT/HCPCS: 96372; J0561 ==

== ENCOUNTER 2023-02-23 13:11 | Outpatient (AMB) | payer OTHER, SELFPAY ==
--- NOTE | 2023-02-23 13:13 | A.OFFVIS_ITS ---
Intake Intake Visit Reasons: Overactive bladder- follow up Intake Note: Patient is present today for a follow-up on Overactive Bladder: Urology Med: None Blood Thinner: Aspirin? Allergies: NKDA PVR 0 mL Corporate Travel Coordinator Required: Yes Corporate Travel Coordinator Language: Ghanaian Information Interpreted: non-clinical & clinical Accompanied by: Self / Same As Patient Allergies No Known Allergies [No Known Allergies*] Allergy (Verified 02/23/23 13:15) HPI HPI Comments History of Present Illness0 Details Chelsi is a 57-year-old female who presents today to the office for a follow-up. 02/23/2023? She is followed today for overactive bladder. The patient is a Ghanaian speaking female. Certified paraprofessional interpreter was present during the visit. She was last seen by Nhan Walker on 04/27/2022 for overactive bladder and urge incontinence. Patient states that the follow-up was disrupted by COVID. She mentions having stress incontinence with leakage on cough, laugh, sneeze. Review of chart: Mixed urinary incontinence Primary complaints of urgency, frequency, nocturia, unsensed accidents, stress incontinence Stress incontinence with leakage on cough, laugh, sneeze Urge and frequency with mild incontinence requiring use of 2 liners per day Nocturia x5 - fell going to the bathroom and broke her radius Gynecology history - describes all births as rapid. Last 10 lb delivery, all vaginal 02/23/2023: Evaluation today?UA?leukocyt es: 1 +; blood: negative; Post void residual: 0 mL. 02/23/2023: Plan:I have ordered oxybutyn in 10 mg extended release daily. Discussed Kiegel exercises with the patient. Urodynamics was discussed to be scheduled. [facility] Medical History Urgency incontinence Microscopic hematuria Stress incontinence Hx of fracture of wrist Hx of sleep apnea Hx of vertigo COVID GERD (gastroesophageal reflux disease) Pre-diabetes Epigastric pain Abdominal cramping Primary osteoarthritis of knees, bilateral Morbid obesity Subcutaneous abscess Osteoarthritis Fibromyalgia Arthritis Hypertension Surgical History History of open reduction and internal fixation (ORIF) procedure Hx of tubal ligation Hx of colonoscopy History of cholecystectomy (~2019) Family History Father Stomach cancer Brother Stomach problems Mother Diabetes Social History Household Members: Family Housing: Apartment Do you presently have visiting nurse or other home services: No Alcohol intake: current Alcohol intake frequency: holidays/special occasions only Comment: SLEEPING Patient Tobacco Use Status: Former Tobacco user Quit Date: 30 yrs ago Tobacco use type: Cigarette Second Hand Smoke Exposure: No Advance Directives Date on File: 01/28/20 service: No Current occupational status: unemployed Sexual orientation: Straight/Heterosexual Gender identity: Female Review of Systems Const Denies daytime sleepiness, Denies excessive sweating, Denies fatigue, Denies fever(s), Denies lethargy, Denies malaise, Denies night sweats, Denies snoring and Denies weight loss Eyes Denies blurry vision and Denies itchy eyes ENT Denies nasal congestion, Denies post nasal drip, Denies sinus pain, Denies sinus pressure and Denies other ( Thrush) Card Denies chest pain, Denies pedal edema, Denies dyspnea, Denies orthopnea and Denies paroxysmal nocturnal dyspnea Resp Denies cough, Denies hemoptysis, Denies excessive phlegm production, Denies dyspnea, Denies snoring and Denies wheezing GI Denies abdominal pain and Denies heartburn Musc Denies myalgias, Denies arthralgias and Denies joint swelling Skin/Breast Denies rash Neuro Denies memory loss and Denies seizure-like activity Psych Denies abnormal sleep pattern, Denies anxiety and Denies memory loss Endo Denies excessive sweating, Denies fatigue and Denies heat intolerance Segun/Lymph Denies easy bruising Aller/Immun Denies itchy eyes, Denies seasonal rhinorrhea and Denies wheezing Physical Exam Const General: no acute distress and alert Nutritional Appearance: obese Orientation/consciousness: Other orientation findings ( oriented) HEENT Head: Yes atraumatic Eyes General: appearance normal, both eyes and all related structures Sclerae: sclerae normal EOM: EOMs intact bilaterally Neck Neck: Yes supple Lymphatic: no lymphadenopathy noted Resp Effort & Inspection: normal respiratory effort and no use of accessory muscles Auscultation: clear to auscultation bilaterally Cardio Rate: regular rate Rhythm: regular rhythm Heart sounds: no gallops, no murmurs and no rubs Skin General skin exam: other ( warm) Extrem General: No clubbing, No cyanosis and No edema Office Procedures Post Void Residual Post Residual Void Post Void Residual (PVR): 0 46000-Kser Void Residual by ultrasound Results AMB Urinalysis, Automated UA Leukoctes 70 Maximus/uL Last Edit by JOSIANE Cohen on 02/23/23 13:38 1+ Dc Kumar 02/23/23 13:38 UA Nitrite Negative Last Edit by Dc Kumar Angel on 02/23/23 13:38 UA Urobilinogen 0.2 mg/dL Last Edit by Dc Kumar [facility] on 02/23/23 13:3 8 UA Protein 15 mg/dL Last Edit by Dc Kumar [facility] on 02/23/23 13:38 UA pH 6.0 Last Edit by Dc Kumar [facility] on 02/23/23 13:38 UA Blood 0 Tim/uL Last Edit by Dc Kumar [facility] on 02/23/23 13:38 UA Specific [place] 1.025 Last Edit by Dc Kumar Angel on 02/23/23 13: 38 UA Ketone Negative Last Edit by Dc Kumar [facility] on 02/23/23 13:38 UA Bilirubin 0 mg/dL Last Edit by Dc Kumar [facility] on 02/23/23 13:38 UA Glucose 0 mg/dL Last Edit by Dc Kumar [facility] on 02/23/23 13:38 Results Reviewed Results Reviewed: Laboratory Last Values Urine pH (Auto) 6.0 02/23/23 13:28 Specific [place] (Auto) 1.025 02/23/23 13:28 Urine Protein (Auto) 15 mg/dL 02/23/23 13:28 Glucose (UA)(Auto) 0 mg/dL 02/23/23 13:28 Urine Ketones (Auto) Negative 02/23/23 13:28 Urine Blood (Auto) 0 Tim/uL 02/23/23 13:28 Urine Nitrite (Auto) Negative 02/23/23 13:28 Urine Bilirubin (Auto) 0 mg/dL 02/23/23 13:28 Urine Urobilinogen (Auto) 0.2 mg/dL 02/23/23 13:28 Leukocyte Esterase (Auto) 70 Maximus/uL 02/23/23 13:28 Assessment & Plan Assessment & Plan (1) YOLA (stress urinary incontinence, female): Code(s): N39.3 - Stress incontinence (female) (male) (2) OAB (overactive bladder): Code(s): N32.81 - Overactive bladder (3) Urge incontinence: Code(s): N39.41 - Urge incontinence Plan I have ordered oxybutynin 10 mg extended release daily. Discussed Kiegel exercises with the patient. Urodynamics was discussed to be scheduled. Orders: Orders AMB Urinalysis Automated 02/23/23 Z13.9 - Encounter for screening, unspecified AMB Post Void Residual by ultrasound 02/23/23 N39.8 - Other specified disorders of urinary system Medications: New oxybutynin chloride ER 10 mg PO DAILY 30 tabs 3RF Patient Instructions: The patient had an opportunity to ask questions regarding treatment plan. All questions were answered. Imaging, Laboratory studies and physical exam results were discussed and reviewed in detail. No major barriers to understanding were identified. The patient expressed understanding and agreement with the above treatment plan. The patient is aware they should contact our office by phone for worsening of their current condition or the appearance of new symptoms. Compliance is encouraged with any medications and followup testing that is ordered. It is a privilege to be allowed the opportunity to participate in the urologic care of your patient. If you have any questions or concerns regarding treatment for the above conditions please do not hesitate to contact me. The office telephone contact is [phone]. This note is constructed in part using voice recognition software. While every effort has been made to ensure accuracy community health director errors may have been included. Yours sincerely, Niranjan Washburn MD Coding Level of Care Code Est Pt Level 4 (43150) Diagnoses YOLA (stress urinary incontinence, female) N39.3 OAB (overactive bladder) N32.81 Urge incontinence N39.41 CPT Codes Post Residual Void - PVR CPT Code: 68267-Yhry Void Residual by ultrasound ([id number])
== END 2023-02-23 14:31 | disposition home or self-care (01) ==
PROVIDERS: PCP Internal Medicine; Visit Provider Urology
DX: N39.3 Stress incontinence (female) (male) (principal); N32.81 Overactive bladder; N39.41 Urge incontinence
CPT/HCPCS: 99214

== ENCOUNTER → 2023-02-23 13:11 | Outpatient (BNVA) | payer OTHER, SELFPAY | PROVIDERS: PCP Internal Medicine; Visit Provider Urology | DX: N32.81 Overactive bladder (principal); N39.3 Stress incontinence (female) (male); N39.41 Urge incontinence | CPT/HCPCS: 51798; 81003; 99212 ==

== ENCOUNTER 2023-05-09 09:27 | Outpatient (REF) | payer OTHER, SELFPAY ==
[2023-05-11 13:48] LABS: RPR Rapid Plasma Reagin NON-REACTIVE (NON-REACTIVE)
== END 2023-05-09 09:28 | disposition home or self-care (01) ==
LOC: HO.LAB 09:27
PROVIDERS: PCP Internal Medicine; Visit Provider Internal Medicine
DX: A53.9 Syphilis, unspecified (principal)
CPT/HCPCS: 36415; 86592

== ENCOUNTER 2023-05-19 13:32 | Outpatient (AMB) | payer OTHER, SELFPAY ==
--- NOTE | 2023-05-19 13:31 | MHC.OFFVIS ---
Intake Vital Signs 05/19/23 13:33 Height 5 ft 6 in Weight 289 lb BMI 46.6 Pulse 103 H Pulse Source Pulse Oximeter Pulse Oximetry (%) 96 Intake Visit Reasons: F/U, 4 mth.syphilis/lab Compositor Apprentice Required: Yes Compositor Apprentice Name: Adan Martines CMA Information Interpreted: clinical only Allergies No Known Allergies [No Known Allergies*] Allergy (Verified 05/19/23 13:34) HPI F/U, 4 mth.syphilis/lab HPI Details She finished syphilis treatment. Now titer is undetectable. [facility] Medical History Urgency incontinence Microscopic hematuria Stress incontinence Hx of fracture of wrist Hx of sleep apnea Hx of vertigo COVID GERD (gastroesophageal reflux disease) Pre-diabetes Epigastric pain Abdominal cramping Primary osteoarthritis of knees, bilateral Morbid obesity Subcutaneous abscess Osteoarthritis Fibromyalgia Arthritis Hypertension Surgical History History of open reduction and internal fixation (ORIF) procedure Hx of tubal ligation Hx of colonoscopy History of cholecystectomy (~2018) Family History Father Stomach cancer Brother Stomach problems Mother Diabetes Social History Household Members: Family Housing: Apartment Do you presently have visiting nurse or other home services: No Alcohol intake: current Alcohol intake frequency: holidays/special occasions only Comment: SLEEPING Patient Tobacco Use Status: Former Tobacco user Quit Date: 30 yrs ago Tobacco use type: Cigarette Second Hand Smoke Exposure: No Advance Directives Date on File: 01/28/20 service: No Current occupational status: unemployed Sexual orientation: Straight/Heterosexual Gender identity: Female Review of Systems Const All systems reviewed & are unremarkable except as noted in HPI and below Physical Exam Vital Signs: Last Vital Signs Pulse 103 H 05/19/23 13:33 Pulse Ox 96 05/19/23 13:33 BMI result Body Mass Index 46.6 Const General: cooperative HEENT Head: Yes normal to inspection Face and sinus: Yes normal facial exam Mouth: Normal oral and palatal mucosa present Teeth and gingiva: dentition normal Eyes General: appearance normal, both eyes and all related structures Pupils: Equal, round and reactive pupils present Resp Effort & Inspection: normal respiratory effort Cardio Rate: regular rate Rhythm: regular rhythm GI Palpation (GI): Soft to palpation and nontender General: Yes no CVA tenderness Back/Spine/Pelvis Back: no CVA tenderness Skin General skin exam: no rashes or lesions noted Neuro General: moves all extremities Cranial nerves: Yes Equal, round and reactive pupils present Extrem General: Yes normal to inspection Psych Appearance: grossly normal Assessment & Plan Assessment & Plan (1) 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
[2023-05-19 13:33] VITALS: PULSE 103; O2SAT 96; BMI 46.6
== END 2023-05-19 14:00 | disposition home or self-care (01) ==
LOC: HO.HID 13:32
PROVIDERS: PCP Internal Medicine; Visit Provider Internal Medicine
DX: A53.9 Syphilis, unspecified (principal)
CPT/HCPCS: 99213

== ENCOUNTER → 2023-05-19 13:32 | Outpatient (BNVA) | payer OTHER, SELFPAY | PROVIDERS: PCP Internal Medicine; Visit Provider Internal Medicine | DX: A53.9 Syphilis, unspecified (principal) | CPT/HCPCS: 99212 ==

== ENCOUNTER 2023-05-24 10:00 | Outpatient (RCR) | payer OTHER, SELFPAY ==
[2023-05-17 09:01] VITALS: BP 127/59; PULSE 79
== END 2023-07-14 13:28 | disposition home or self-care (01) ==
LOC: HO.PT 10:00
PROVIDERS: PCP Internal Medicine; Visit Provider Internal Medicine
DX: R42 Dizziness and giddiness (principal)
CPT/HCPCS: 97110; 97112; 97162

== ENCOUNTER 2023-06-29 09:09 | Outpatient (REF) | payer OTHER, SELFPAY ==
[2023-06-29 11:09] LABS: Appearance Urine Cloudy; Color Urine Yellow; Glucose Urine UA Negative (Negative); Leukocyte Esterase Urine Trace (Negative); Nitrite Urine Negative (Negative); Specific Gravity - Urine 1.025 (1.005-1.025); UMIC TRIGGER UA YES; Urine Blood Negative (Negative); Urine Ketones Negative (Negative); Urine Protein Trace mg/dL (Neg-Trace)
[2023-06-29 11:17] LABS: Bacteria Urine 1+ (None Seen); Hyaline Casts Urine 0-2 /LPF (0-2); RBC Urine 0-2 /HPF (0-2)
== END 2023-06-29 09:10 | disposition home or self-care (01) ==
LOC: HO.LAB 09:09
PROVIDERS: PCP Internal Medicine; Visit Provider Urology
DX: N32.81 Overactive bladder (principal); N39.3 Stress incontinence (female) (male); N39.0 Urinary tract infection, site not specified
CPT/HCPCS: 81001; 87086

== ENCOUNTER 2023-07-04 19:45 | Outpatient (REF) | payer OTHER, SELFPAY ==
[2023-07-11 20:28] LABS: C. trachomatis RNA TMA NOT DETECTED (NOT DETECTED); N. gonorrhoeae RNA TMA NOT DETECTED (NOT DETECTED); Trichomonas (NAAT) NOT DETECTED (NOT DETECTED)
[2023-07-12 03:29] LABS: HPV mRNA E6/E7 rflx Not Detected (Not Detected)
== END 2023-07-04 19:46 | disposition home or self-care (01) ==
LOC: HO.HHCLNP 19:45
PROVIDERS: Visit Provider Internal Medicine
DX: Z01.419 Encounter for gynecological examination (general) (routine) without abnormal findings (principal); Z11.51 Encounter for screening for human papillomavirus (HPV); Z20.2 Contact with and (suspected) exposure to infections with a predominantly sexual mode of transmission
CPT/HCPCS: 36415; 81513; 87491; 87591; 87624; 87661; 88142

== ENCOUNTER 2023-07-07 09:33 | Outpatient (REF) | payer OTHER, SELFPAY | END 2023-07-07 09:34 | disposition home or self-care (01) | LOC: HO.LAB 09:33 | PROVIDERS: PCP Internal Medicine; Visit Provider Nurse Practitioner | DX: K52.9 Noninfective gastroenteritis and colitis, unspecified (principal); K91.5 Postcholecystectomy syndrome; Z91.09 Other allergy status, other than to drugs and biological substances | CPT/HCPCS: 36415; 86003; 99212 ==

== ENCOUNTER 2023-07-07 09:33 | Outpatient (AMB) | payer OTHER, SELFPAY ==
--- NOTE | 2023-07-07 09:35 | MHC.OFFVIS ---
Intake Vital Signs 07/07/23 09:36 Height 5 ft 6 in Weight 274 lb 4.081 oz BMI 44.3 BP 143/95 H Blood Pressure Location Rt brachial Position Sitting Pulse 89 Intake Visit Reasons: follow up req from pt Intake Note: Chelsi returns in follow up of abdominal pain. CC: Patient reports feeling worst she states she had to d/c the cholestyramine because she was getting worsen abd pain. She c/o epigastric pain and mid abdominal pain, acid reflux, heartburn, occasional nausea, and frequent loose stools. Line Tester Required: Yes Line Tester Language: Crystal Machining Coordinator Name: MEDICAL TRANSPORT SPECIALIST Accompanied by: MEDICAL TRANSPORT SPECIALIST Allergies No Known Allergies [No Known Allergies*] Allergy (Verified 07/07/23 09:50) HPI follow up req from pt HPI Details Assessment & Plan (1) Post-cholecystectomy syndrome: Code(s): K91.5 - Postcholecystectomy syndrome Plan: TUNISIAN #[facility] Past Celiac studies have been negative. She continues to have multiple post prandial loose BM's and pain in the lower/upper abdomen. We will increase the cholestyramine to 2 scoops bid. Her GERD has improved on the esomeprazole 40mg qd. She says her whole family has post prandial diarrhea despite not having cholecystectomies. This is curious. To her knowledge there is no food allergy or inflammatory bowel disease in the family. ROV 4 weeks. (2) Erosive esophagitis: Code(s): K22.10 - Ulcer of esophagus without bleeding (3) Irritable bowel syndrome with diarrhea: Code(s): K58.0 - Irritable bowel syndrome with diarrhea (4) GERD (gastroesophageal reflux disease): Code(s): K21.9 - Gastro-esophageal reflux disease without esophagitis (5) Tubulovillous adenoma of colon: Comment: 09/2022= poor prep repeat in 1 year; 10/07/20 SCOPE, TVA repeat 1 year Code(s): D12.6 - Benign neoplasm of colon, unspecified Medications: Changed From cholestyramine ( sugar) 4 gram administer w/brando l; avoid other med s within 1hr befor e or 4-6hr after d ose 4 grams PO DAILY 378 grams 6RF K91.5 - Postcholec ystectomy syndrome To cholestyramine ( sugar) 4 gram ( Questran) admin ister w/meal; avoi d other meds withi n 1hr before or 4- 6hr after dose 8 grams PO BID 756 grams 6RF K91.5 - Postcholec ystectomy syndrome TODAYS VISIT TUNISIAN #MEDICAL TRANSPORT SPECIALIST translates per pt request (Past Celiac studies have been negative. Her last colonoscopy in December of 2022 biopsied the area of concern on the CT scan and was negative for any IBD. There is the remote possibility of celiac but again her blood studies have been negative. She has also had 2 Prometheus studies that were not consistent with IBD) Okay If she has not improved we could consider a RAST panel or fecal calprotectin or both. Her current medications include cholestyramine 8 g twice a day, dicyclomine 20 mg 3 times a day, esomeprazole 40 mg daily in the morning and famotidine 40 mg at night, and simethicone. Chelsi says that she stopped the cholestyramine because it was giving me pain in my stomach. She says this started with the increased dose. So I instruct her to go back to her prior dose rather than stopping it completely. Her diarrhea is unchanged. The pain is not every day, but occurs most days worse in the am and at bedtime and is in the umbilical area or just to the left of he umbilicus. She usually has epigastric discomfort. (she may be out of her famotidine). The pain ranges from 5-10/10 and will take 15 minutes or so to go away. It is not related to eating or moving her bowels. She can not ID any other precipitating factors or relieving factors. ROV 6 weeks. 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 Trichomonal infection Screen for STD (sexually transmitted disease) Well woman exam Post covid-19 condition, unspecified TOUSSAINT (dyspnea on exertion) Urge incontinence Overactive bladder Stress incontinence Distal radius fracture, left Fracture of left distal radius Colon cancer screening Abdominal cramping Well woman exam with routine gynecological exam Subcutaneous abscess Cellulitis Urgency incontinence Microscopic hematuria Hx of fracture of wrist Hx of sleep apnea Hx of vertigo COVID GERD (gastroesophageal reflux disease) Pre-diabetes Epigastric pain Abdominal cramping Primary osteoarthritis of knees, bilateral Morbid obesity Osteoarthritis Fibromyalgia Arthritis Hypertension Surgical History History of open reduction and internal fixation (ORIF) procedure Hx of tubal ligation Hx of colonoscopy History of cholecystectomy (~2018) Family History Father Stomach cancer Brother Stomach problems Mother Diabetes Social History Household Members: Family Housing: Apartment Do you presently have visiting nurse or other home services: No Alcohol intake: current Alcohol intake frequency: holidays/special occasions only Comment: SLEEPING Patient Tobacco Use Status: Former Tobacco user Quit Date: 30 yrs ago Tobacco use type: Cigarette Second Hand Smoke Exposure: No Advance Directives Date on File: 01/28/20 service: No Current occupational status: unemployed Sexual orientation: Straight/Heterosexual Gender identity: Female Review of Systems Const Denies fatigue, Denies fever(s), Denies night sweats, Denies poor appetite, Reports weight gain and Denies weight loss Eyes Details: glasses Reports requires corrective lenses ENT Reports Normal hearing present, Denies dental pain, Denies dysphagia, Denies hearing loss, Denies mouth pain, Denies odynophagia, Denies throat swelling, Denies tongue swelling and Reports other (Dentition adequate) Card Reports no additional complaints Resp Reports no additional complaints GI Details: Reports abdominal pain, Denies melena, Reports bloating, Denies hematochezia, Denies constipation, Denies GI cramping, Denies dysphagia, Denies excessive flatus, Denies early satiety, Reports heartburn, Reports diarrhea, Denies nausea, Denies odynophagia, Denies vomiting and Denies hematemesis Skin/Breast Denies pruritus, Denies lesions, Denies rash and Denies jaundice Neuro Reports Normal hearing present and Denies Abnormal speech present Endo Denies fatigue Aller/Immun Denies throat swelling and Denies tongue swelling Physical Exam Vital Signs: Last Vital Signs Pulse 89 07/07/23 09:36 BP 143/95 H 07/07/23 09:36 BMI result Body Mass Index 44.3 Const General: cooperative, no acute distress, well developed and well groomed Nutritional Appearance: well nourished and obese morbidly obese Orientation/consciousness: oriented to person, oriented to place and oriented to time Limitations: language barrier HEENT Head: Yes normocephalic and Yes atraumatic Eyes General: appearance normal, both eyes and all related structures Pupils: Equal, round and reactive pupils present Neck Neck: Yes normal visual inspection and Yes no lymphadenopathy Thyroid: Thyroid normal Resp Effort & Inspection: normal respiratory effort and able to speak in complete sentences Auscultation: clear to auscultation bilaterally Cardio Rate: regular rate Rhythm: regular rhythm Heart sounds: Normal, physiologic split S2 sound present Peripheral pulses: radial pulses present and posterior tibial pulses present GI Inspection: No distended, Yes Abdominal panniculus present and Yes obesity Palpation (GI): Soft to palpation, Tenderness to palpation present (GI) periumbilically, no guarding, not rigid and No hepatosplenomegaly present Percussion: Yes normal to percussion Auscultation: normal bowel sounds Rectal Exam - Female: deferred Skin General skin exam: no rashes or lesions noted, turgor normal, skin not dry, no jaundice, No spider nevi and no striae Rashes: no rashes Nails: normal Neuro General: oriented to person, oriented to place and oriented to time Cranial nerves: Yes Equal, round and reactive pupils present and Yes Normal hearing present Speech: No Abnormal speech present Extrem General: Yes normal to inspection, No clubbing, No cyanosis and No edema Psych Appearance: grossly normal and well kempt Mental Status: mental status grossly normal Speech and movement: Normal speech and movement present Affect: normal affect Attitude: cooperative Thought process: Normal thought process present and not confabulating Thought content: Normal thought content present Insight: Limited insight present (Psych) Judgement: Limited judgement present (Psych) Assessment & Plan Assessment & Plan (1) Irritable bowel syndrome with diarrhea: Code(s): K58.0 - Irritable bowel syndrome with diarrhea (2) Post-cholecystectomy syndrome: Comment: on CT not borne out on biopsy aeb Code(s): K91.5 - Postcholecystectomy syndrome (3) GERD (gastroesophageal reflux disease): Code(s): K21.9 - Gastro-esophageal reflux disease without esophagitis (4) Erosive esophagitis: Code(s): K22.10 - Ulcer of esophagus without bleeding (5) Acute diarrhea: Code(s): R19.7 - Diarrhea, unspecified Plan TUNISIAN #MEDICAL TRANSPORT SPECIALIST translates per pt request (Past Celiac studies have been negative. Her last colonoscopy in December of 2022 biopsied the area of concern on the CT scan and was negative for any IBD. There is the remote possibility of celiac but again her blood studies have been negative. She has also had 2 Prom[facility] studies that were not consistent with IBD) Okay If she has not improved we could consider a RAST panel or fecal calprotectin or both. Her current medications include cholestyramine 8 g twice a day, dicyclomine 20 mg 3 times a day, esomeprazole 40 mg daily in the morning and famotidine 40 mg at night, and simethicone. Chelsi says that she stopped the cholestyramine because it was giving me pain in my stomach. She says this started with the increased dose. So I instruct her to go back to her prior dose rather than stopping it completely. Her diarrhea is unchanged. The pain is not every day, but occurs most days worse in the am and at bedtime and is in the umbilical area or just to the left of he umbilicus. She usually has epigastric discomfort. (she may be out of her famotidine). The pain ranges from 5-10/10 and will take 15 minutes or so to go away. It is not related to eating or moving her bowels. She can not ID any other precipitating factors or relieving factors. ROV 6 weeks. Orders: Orders Rast Allergen Today K52.9 - Noninfective gastroenteritis and colitis, unspecified, K91.5 - Postcholecystectomy syndrome, R19.7 - Diarrhea, unspecified Calprotectin, Fecal Today K52.9 - Noninfective gastroenteritis and colitis, unspecified, K91.5 - Postcholecystectomy syndrome, R19.7 - Diarrhea, unspecified Medications: Changed From cholestyramine (with sugar) 4 gram (Questran) administer w/meal; avoid other meds within 1hr before or 4-6hr after dose 8 grams PO BID 756 grams 6RF K91.5 - Postcholecystectomy syndrome To cholestyramine (with sugar) 4 gram (Questran) administer w/meal; avoid other meds within 1hr before or 4-6hr after dose 4 grams PO BID 756 grams 6RF K91.5 - Postcholecystectomy syndrome Refilled simethicone 180 mg PO QID 120 caps 6RF R14.0 - Abdominal distension (gaseous) famotidine 40 mg PO BEDTIME 30 tabs 6RF K21.9 - Gastro-esophageal reflux disease without esophagitis, K22.10 - Ulcer of esophagus without bleeding Coding Level of Care Code Est Pt Level 3 (26503) Diagnoses Irritable bowel syndrome with diarrhea K58.0 Post-cholecystectomy syndrome K91.5 GERD (gastroesophageal reflux disease) K21.9 Erosive esophagitis K22.10 Acute diarrhea R19.7
[2023-07-07 09:36] VITALS: BP 143/95; PULSE 89; BMI 44.3
== END 2023-07-07 10:07 | disposition home or self-care (01) ==
PROVIDERS: PCP Internal Medicine; Visit Provider Nurse Practitioner
DX: K58.0 Irritable bowel syndrome with diarrhea (principal); K91.5 Postcholecystectomy syndrome; K21.9 Gastro-esophageal reflux disease without esophagitis; K22.10 Ulcer of esophagus without bleeding; R19.7 Diarrhea, unspecified
CPT/HCPCS: 99213

== ENCOUNTER 2023-07-14 10:14 | Outpatient (AMB) | payer OTHER, SELFPAY ==
--- NOTE | 2023-07-14 10:24 | A.OFFVIS_ITS ---
Intake Intake Visit Reasons: Urodynamic (Vietnamese) Intake Note: Patient presents today for a URODYNAMIC Procedure: Meds: Oxybutynin Allergies to Antibiotic: No Known Allergies Blood Thinner: Aspirin Allergies No Known Allergies [No Known Allergies*] Allergy (Verified 07/07/23 09:50) Medication List - Last Reconciled 07/14/23 by Niranjan Washburn MD albuterol sulfate 90 mcg/actuation (Ventolin HFA) 0 mcg inhalation amitriptyline 25 mg PO BEDTIME amlodipine (Norvasc) 10 mg PO DAILY aspirin (Adult Low Dose Aspirin) 81 mg PO DAILY blood-glucose meter (FreeStyle [place] Lite kit) As directed cefuroxime axetil 500 mg PO BID 5 days cholecalciferol (vitamin D3) (Vitamin D3) 50 mcg PO DAILY cholestyramine (with sugar) 4 gram (Questran) 4 grams PO BID citalopram (Celexa) 20 mg PO DAILY clonazepam (Klonopin) 0.5 mg PO BEDTIME dicyclomine 20 mg PO TID duloxetine (Cymbalta) 60 mg PO DAILY esomeprazole magnesium 40 mg PO DAILY famotidine 40 mg PO BEDTIME fexofenadine (Allergy Relief (fexofenadine)) 180 mg PO DAILY PRN fluticasone propion-salmeterol 500-50 mcg/dose 1 ea inhalation BID gabapentin (Neurontin) 600 mg PO BID hydralazine 25 mg PO BID hydrochlorothiazide 25 mg PO DAILY lancets (TRUEplus Lancets) As directed losartan (Cozaar) 100 mg PO DAILY meclizine (Dramamine (meclizine)) 25 mg PO TID PRN melatonin 3 - 6 mg PO BEDTIME PRN metformin 500 mg PO BID mirabegron ER (Myrbetriq) 50 mg PO DAILY oxybutynin chloride ER 10 mg PO DAILY 30 days simethicone 180 mg PO QID tramadol 50 mg PO BID PRN HPI HPI Comments History of Present Illness Details Chelsi is here for urodynamics. She has complaints of urinary urgency and stress urinary incontinence. She leaks with coughing. She is currently on oxybutynin 10 mg daily. She complains of dry mouth. She states that she drinks during the night because of the dry mouth. She has been off of the oxybutynin for 5 days for this procedure. CMG parameters detailed below. Interpretation: During the filling phase sensory urgency was noted, detrusor overactivity was not observed. Stress test was performed at a volume of 202 mL. Leakage was observed during cough or valsalva stress. Findings consistent with ISD. EMG- Appropriate changes in the waveforms were noted through out the study. There was a decrease in the EMG activity during the voiding c/w normal function of the pelvic floor. I have discussed trial of alternative anti spastic medication for symptoms of urgency or than oxybutynin that would have less side effects of dry mouth. Will prescribe Mybetriq 50 mg daily to replace oxybutynin 10 mg daily. The patient requests prescription for pads. I have Discussed alternative treatment options for stress urinary incontinence and intrinsic sphincter deficiency to include sling versus bulking injection therapies. The risks of bulking injection to the bladder neck/urethra to include but not limited to urine retention, requiring a christensen catheter and need to repeat the procedure, hematuria, urgency. 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 Trichomonal infection Screen for STD (sexually transmitted disease) Well woman exam Post covid-19 condition, unspecified TOUSSAINT (dyspnea on exertion) Urge incontinence Overactive bladder Stress incontinence Distal radius fracture, left Fracture of left distal radius Colon cancer screening Abdominal cramping Well woman exam with routine gynecological exam Subcutaneous abscess Cellulitis Urgency incontinence Microscopic hematuria Hx of fracture of wrist Hx of sleep apnea Hx of vertigo COVID GERD (gastroesophageal reflux disease) Pre-diabetes Epigastric pain Abdominal cramping Primary osteoarthritis of knees, bilateral Morbid obesity Osteoarthritis Fibromyalgia Arthritis Hypertension Surgical History History of open reduction and internal fixation (ORIF) procedure Hx of tubal ligation Hx of colonoscopy History of cholecystectomy (~2019) Family History Father Stomach cancer Brother Stomach problems Mother Diabetes Social History Household Members: Family Housing: Apartment Do you presently have visiting nurse or other home services: No Alcohol intake: current Alcohol intake frequency: holidays/special occasions only Comment: SLEEPING Patient Tobacco Use Status: Former Tobacco user Quit Date: 30 yrs ago Tobacco use type: Cigarette Second Hand Smoke Exposure: No Advance Directives Date on File: 01/28/20 service: No Current occupational status: unemployed Sexual orientation: Straight/Heterosexual Gender identity: Female Review of Systems Const All systems reviewed & are unremarkable except as noted in HPI and below Reports no additional complaints Eyes Reports no additional complaints ENT Reports no additional complaints Card Reports no additional complaints Resp Reports no additional complaints GI Reports no additional complaints Reports as per HPI Musc Reports no additional complaints Skin/Breast Reports system reviewed and no additional complaints, except as documented Neuro Reports no additional complaints Psych Reports no additional complaints Endo Reports no additional complaints Segun/Lymph Reports no additional complaints Aller/Immun Reports no additional complaints Office Procedures Urodynamic Studies Consent Discussed risk and benefit or proposed procedure with the patient. Information consent for procedure given to the patient. Discussed technical aspects, risks, benefits and alternatives in full. Addressed all of the patient's questions and concerns regarding the procedure. The patient demonstrated knowledge and understanding. They wish to proceed with this procedure. Preparation The patient was prepped in the usual manner. A soil chemist was present and in the room. Genitalia was prepped with betadine solution in a sterile manner. Procedure Complex Uroflow Complex uroflow performed by: Niranjan Washburn Maximum urinary flow rate (mL/second): 37 Voiding time (seconds): 41 Voided volume (mL): 422 Residual urine (mL): 50 Cystometrogram Vaginal/rectal catheter type: rectal First sensation at (mL): 23 mL First desire at (mL): 122 mL Strong desire to void occured at (mL): 259 mL Strong desire detrussor pressure (cm H2O): 0.6 Maximum fill (mL): 350 mL Voided with max detrussor pressure of (cm H2O): 44 Maximum flow rate (mL/second): 28 mL/s Prep: 76982-Pkhfmnbrqmuuhp w/ CONTACT OFFICER 55860-Ysaaytg-Ejymiuqzkjpb First 93845-Wszl/Urinary Muscle Study 57168-Lhtar-Vghwqbzep Pressure Test Procedure code (CPT) selection complete Office Meds nitrofurantoin monohydrate/macrocrystals 100 mg capsule Performing Provider: Niranjan Washburn MD [facility] Administered by: Hector Herzog LPN on 07/14/23 11:30 Dose Route Admin Location Dispensed Lot Number Expiration Date NDC [employer] Professor 100 mg PO 1 cap Assessment & Plan Assessment & Plan (1) Intrinsic sphincter deficiency (ISD): Code(s): N36.42 - Intrinsic sphincter deficiency (ISD) (2) YOLA (stress urinary incontinence, female): Code(s): N39.3 - Stress incontinence (female) (male) (3) Urinary urgency: Code(s): R39.15 - Urgency of urination Plan Myrbetriq 50 mg daily to replace oxybutynin 10 mg Schedule cystoscopy bulkamid, urethral bulking injection Orders: Orders AMB Urodynamics Studies Today N32.81 - Overactive bladder, N39.3 - Stress incontinence (female) (male) Medications: New mirabegron ER (Myrbetriq) to replace oxybutynin 10 mg 50 mg PO DAILY 30 tabs 1RF Patient Instructions: The patient had an opportunity to ask questions regarding treatment plan. All questions were answered. The patient expressed understanding and agreement with the above treatment plan. The patient is aware they should contact our office by phone for worsening of their current condition or the appearance of new symptoms. Compliance is encouraged with any medications and followup testing that is ordered. It is a privilege to be allowed the opportunity to participate in the urologic care of your patient. If you have any questions or concerns regarding treatment for the above conditions please do not hesitate to contact me. The office telephone contact is [phone]. This note is constructed in part using voice recognition software. While every effort has been made to ensure accuracy payroll officer errors may have been included. Yours sincerely, Niranjan Washburn MD Coding Level of Care Code Est Pt Level 4 (27386) Diagnoses Intrinsic sphincter deficiency (ISD) N36.42 YOLA (stress urinary incontinence, female) N39.3 Urinary urgency R39.15 CPT Codes Urodynamic Studies - CPT: 27885-Knhylvraruaksc w/ CONTACT OFFICER ([id number]) Urodynamic Studies - CPT: 10214-Itzneyq-Fqpivvxuzemz First ([id number]) Urodynamic Studies - CPT: 97067-Apuv/Urinary Muscle Study ([id number]) Urodynamic Studies - CPT: 49729-Rupoi-Tqdwzfcyk Pressure Test ([id number])
== END 2023-07-14 11:51 | disposition home or self-care (01) ==
PROVIDERS: PCP Internal Medicine; Visit Provider Urology
DX: N36.42 Intrinsic sphincter deficiency (ISD) (principal); N39.3 Stress incontinence (female) (male); R39.15 Urgency of urination; N32.81 Overactive bladder
CPT/HCPCS: 51728; 51741; 51784; 51797; 99214

== ENCOUNTER → 2023-07-14 10:14 | Outpatient (BNVA) | payer OTHER, SELFPAY | PROVIDERS: PCP Internal Medicine; Visit Provider Urology | DX: N36.42 Intrinsic sphincter deficiency (ISD) (principal); N39.3 Stress incontinence (female) (male); R39.15 Urgency of urination | CPT/HCPCS: 51728; 51741; 51784; 51797; 99212 ==

== ENCOUNTER 2023-08-10 09:24 | Outpatient (AMB) | payer OTHER, SELFPAY ==
[2023-08-10 09:28] VITALS: BP 111/77; PULSE 81; O2SAT 95; BMI 44.4
--- NOTE | 2023-08-10 09:28 | A.OFFVIS_ITS ---
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 Patient states that her asthma symptoms are well controlled on current regimen of Advair and albuterol MDI. She is started to use her CPAP machine, however she does have difficulties with a new mask.. Patient does complain of multiple environmental allergies at have seasonal exacerbation at this time. Denies asthma exacerbation. 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 Trichomonal infection Screen for STD (sexually transmitted disease) Well woman exam Post covid-19 condition, unspecified TOUSSAINT (dyspnea on exertion) Urge incontinence Overactive bladder Stress incontinence Distal radius fracture, left Fracture of left distal radius Colon cancer screening Abdominal cramping Well woman exam with routine gynecological exam Subcutaneous abscess Cellulitis Urgency incontinence Microscopic hematuria Hx of fracture of wrist Hx of sleep apnea Hx of vertigo COVID GERD (gastroesophageal reflux disease) Pre-diabetes Epigastric pain Abdominal cramping Primary osteoarthritis of knees, bilateral Morbid obesity Osteoarthritis Fibromyalgia Arthritis Hypertension Surgical History History of open reduction and internal fixation (ORIF) procedure Hx of tubal ligation Hx of colonoscopy History of cholecystectomy (~2019) Family History Father Stomach cancer Brother Stomach problems Mother Diabetes Social History Household Members: Family Housing: Apartment Do you presently have visiting nurse or other home services: No Alcohol intake: current Alcohol intake frequency: holidays/special occasions only Comment: SLEEPING Patient Tobacco Use Status: Former Tobacco user Quit Date: 30 yrs ago Tobacco use type: Cigarette Second Hand Smoke Exposure: No Advance Directives Date on File: 01/28/20 service: No Current occupational status: unemployed Sexual orientation: Straight/Heterosexual Gender identity: Female Review of Systems Const Denies daytime sleepiness, Denies excessive sweating, Denies fatigue, Denies fever(s), Denies lethargy, Denies malaise, Denies night sweats, Denies snoring and Denies weight loss Eyes Denies blurry vision and Denies itchy eyes ENT Denies nasal congestion, Denies post nasal drip, Denies sinus pain, Denies sinus pressure and Denies other ( Thrush) Card Denies chest pain, Denies pedal edema, Denies dyspnea, Denies orthopnea and Denies paroxysmal nocturnal dyspnea Resp Denies cough, Denies hemoptysis, Denies excessive phlegm production, Denies dyspnea, Denies snoring and Denies wheezing GI Denies abdominal pain and Denies heartburn Musc Denies myalgias, Denies arthralgias and Denies joint swelling Skin/Breast Denies rash Neuro Denies memory loss and Denies seizure-like activity Psych Denies abnormal sleep pattern, Denies anxiety and Denies memory loss Endo Denies excessive sweating, Denies fatigue and Denies heat intolerance Segun/Lymph Denies easy bruising Aller/Immun Denies itchy eyes, Reports seasonal rhinorrhea and Denies wheezing Physical Exam Vital Signs: Last Vital Signs Pulse 81 08/10/23 09:28 BP 111/77 08/10/23 09:28 Pulse Ox 95 08/10/23 09:28 Oxygen Delivery Method Room Air 08/10/23 09:28 BMI result Body Mass Index 44.4 Const General: no acute distress and alert Nutritional Appearance: obese Orientation/consciousness: Other orientation findings ( oriented) HEENT Head: Yes atraumatic Eyes General: appearance normal, both eyes and all related structures Sclerae: sclerae normal EOM: EOMs intact bilaterally Neck Neck: Yes supple Lymphatic: no lymphadenopathy noted Resp Effort & Inspection: normal respiratory effort and no use of accessory muscles Auscultation: clear to auscultation bilaterally Cardio Rate: regular rate Rhythm: regular rhythm Heart sounds: no gallops, no murmurs and no rubs Skin General skin exam: other ( warm) Extrem General: No clubbing, No cyanosis and No edema Assessment & Plan Assessment & Plan (1) Asthma: Code(s): J45.909 - Unspecified asthma, uncomplicated Category: Medical Plan: Well controlled current regimen of Advair and albuterol MDI. Continue current regimen. (2) GABRIELA (obstructive sleep apnea): Comment: . Code(s): G47.33 - Obstructive sleep apnea (adult) (pediatric) Category: Medical Plan: Reasonable control on current CPAP therapy. Patient wants to try under the nose mask. Mask provided. Continue current CPAP therapy. (3) Environmental allergies: Code(s): Z91.09 - Other allergy status, other than to drugs and biological substances Category: Medical Plan: Now with seasonal exacerbation. Will add nasal ipratropium. Medications: New ipratropium bromide administer into each nostril 2 sprays intranasal TID-QID 30 days PRN 15 mL 3RF allergy symptoms Coding Level of Care Code Est Pt Level 4 (26129) Diagnoses Asthma J45.909 GABRIELA (obstructive sleep apnea) G47.33 Environmental allergies Z91.09
== END 2023-08-10 09:44 | disposition home or self-care (01) ==
PROVIDERS: PCP Internal Medicine; Visit Provider Internal Medicine Pulmonary Disease
DX: J45.909 Unspecified asthma, uncomplicated (principal); G47.33 Obstructive sleep apnea (adult) (pediatric); Z91.09 Other allergy status, other than to drugs and biological substances
CPT/HCPCS: 99214

== ENCOUNTER → 2023-08-10 09:24 | Outpatient (BNVA) | payer OTHER, SELFPAY | PROVIDERS: PCP Internal Medicine; Visit Provider Internal Medicine Pulmonary Disease | DX: J45.909 Unspecified asthma, uncomplicated (principal); G47.33 Obstructive sleep apnea (adult) (pediatric); Z91.09 Other allergy status, other than to drugs and biological substances | CPT/HCPCS: 99212 ==

== ENCOUNTER 2023-08-18 09:03 | Outpatient (REF) | payer OTHER, SELFPAY ==
[2023-08-18 09:53] LABS: MANUAL DIFF FLAG NO
[2023-08-18 11:10] LABS: Basophils Percent Auto 0.4 % (0-2); Eosinophils Absolute Auto 0.2 X10*3/uL (0.0-0.4); Eosinophils Percent Auto 1.8 % (0-4); Hematocrit 43.7 % (37.0-47.0); Imm Gran Abs Auto 0.05 X10*3/uL (0.00-0.03); Imm Gran Pct Auto 0.5 % (0.0-0.4); Lymphocytes Absolute Auto 2.4 X10*3/uL (1.2-4.9); Lymphocytes Percent Auto 22.3 % (20-40); Mean Corpuscular HGB Conc 32.5 g/dl (31.0-35.0); Mean Corpuscular Hemoglobin 28.7 pg (27.0-33.0); Mean Corpuscular Volume 88.5 fL (80.0-98.0); Mean Platelet Volume 11.2 fL (9.4-12.3); Monocytes Absolute Auto 0.7 X10*3/uL (0.1-1.2); Monocytes Percent Auto 6.8 % (2-11); Neutrophils Absolute Auto 7.3 x10*3/uL (2.0-8.3); Neutrophils Percent Auto 68.2 % (45-73); Platelet Count 279 X10*3/uL (160-400); Red Blood Count 4.94 X10*6/uL (4.20-5.50); Red Cell Distribution Width 13.7 % (11.0-16.0); White Blood Count 10.7 X10*3/uL (4.8-10.8)
[2023-08-18 11:12] LABS: Hemoglobin 14.2 g/dl (12.0-16.0)
[2023-08-18 11:22] LABS: Anion Gap 15 (12-20); Blood Urea Nitrogen 11 mg/dL (9-16); Calcium 9.4 mg/dL (8.4-10.2); Carbon Dioxide 25 mmol/L (22-29); Chloride 102 mmol/L (96-108); Estimated Glomerular Filt Rate > 60; Glucose Random 137 mg/dL (60-115); Potassium 3.9 mmol/L (3.3-5.1); Sodium 138 mmol/L (135-145)
== END 2023-08-18 09:04 | disposition home or self-care (01) ==
LOC: HO.LAB 09:03
PROVIDERS: Absent Provider Urology; PCP Internal Medicine; Visit Provider Nurse Practitioner
DX: Z01.812 Encounter for preprocedural laboratory examination (principal); N36.42 Intrinsic sphincter deficiency (ISD)
CPT/HCPCS: 36415; 80048; 85025; 99212

== ENCOUNTER 2023-08-18 09:03 | Outpatient (AMB) | payer OTHER, SELFPAY ==
[2023-08-18 09:05] VITALS: BP 137/78; PULSE 93; BMI 43.6
--- NOTE | 2023-08-18 09:05 | A.OFFVIS_ITS ---
Vital Signs 08/18/23 09:05 Height 5 ft 6 in Weight 270 lb 4.587 oz BMI 43.6 BP 137/78 Blood Pressure Location Rt brachial Position Sitting Pulse 93 Intake Visit Reasons: Follow up 6 weeks Intake Note: Patient returns in office today in follow up of labs. CC: Patient states that she is feeling better and also discovered that the Tramadol was causing her abdominal pain and she d/c'd the medication. She states that she is taking probiotics and papaya enzymes and that also has helped with her symptoms. 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: [employer] Accompanied by: [employer] Allergies No Known Allergies [No Known Allergies*] Allergy (Verified 08/18/23 09:14) HPI HPI Follow up 6 weeks: Details: Assessment & Vanessa (1) Irritable bowel syndrome with diarrhea: Code(s): K58.0 - Irritable bowel syndrome with diarrhea (2) Post-cholecystectomy syndrome: Comment: on CT not borne out on biopsy aeb Code(s): K91.5 - Postcholecystectomy syndrome (3) GERD (gastroesophageal reflux disease): Code(s): K21.9 - Gastro-esophageal reflux disease without esophagitis (4) Erosive esophagitis: Code(s): K22.10 - Ulcer of esophagus without bleeding (5) Acute diarrhea: Code(s): R19.7 - Diarrhea, unspecified Plan SYRIAN #[employer] translates per pt request (Past Celiac studies have been negative. Her last colonoscopy in December of 2022 biopsied the area of concern on the CT scan and was negative for any IBD. There is the remote possibility of celiac but again her blood studies have been negative. She has also had 2 [facility] studies that were not consistent with IBD) Okay If she has not improved we could consider a RAST panel or fecal calprotectin or both. Her current medications include cholestyramine 8 g twice a day, dicyclomine 20 mg 3 times a day, esomeprazole 40 mg daily in the morning and famotidine 40 mg at night, and simethicone. Chelsi says that she stopped the cholestyramine because it was giving me pain in my stomach. She says this started with the increased dose. So I instruct her to go back to her prior dose rather than stopping it completely. Her diarrhea is unchanged. The pain is not every day, but occurs most days worse in the am and at bedtime and is in the umbilical area or just to the left of he umbilicus. She usually has epigastric discomfort. (she may be out of her famotidine). The pain ranges from 5-10/10 and will take 15 minutes or so to go away. It is not related to eating or moving her bowels. She can not ID any other precipitating factors or relieving factors. ROV 6 weeks. Orders: Orders Rast Allergen Today K52.9 - Noninfective gastroenteritis and colitis, unspecified, K91.5 - Postcholecystectomy syndrome, R19.7 - Diarrhea, unspecified Calprotectin, Fecal Today K52.9 - Noninfective gastroenteritis and colitis, unspecified, K91.5 - Postcholecystectomy syndrome, R19.7 - Diarrhea, unspecified Medications: Changed From cholestyramine (with sugar) 4 gram (Questran) administer w/meal; avoid other meds within 1hr before or 4-6hr after dose 8 grams PO BID 756 grams 6RF K91.5 - Postcholecystectomy syndrome To cholestyramine (with sugar) 4 gram (Questran) administer w/meal; avoid other meds within 1hr before or 4-6hr after dose 4 grams PO BID 756 grams 6RF K91.5 - Postcholecystectomy syndrome Refilled simethicone 180 mg PO QID 120 caps 6RF R14.0 - Abdominal distension (gaseous) famotidine 40 mg PO BEDTIME 30 tabs 6RF K21.9 - Gastro-esophageal reflux disease without esophagitis, K22.10 - Ulcer of esophagus without bleeding LABS: RAST REPORT SHOWS NO SIGNIFICANT ALLERGIES, FECAL CALPROTECTIN NOT TODAYS VISIT SYRIAN #Female family member per pt request Past Celiac studies have been negative. ? repeat scope r/t poor prep She found that the Tramadol was giving her pain, since that medication was changed she is doing better. Her stomach is doing much better and she is taking papya enzymes and a probiotic. She is moving her bowels bid and it is soft. dicyclomine 20 mg 3 times a day, esomeprazole 40 mg daily in the morning and famotidine 40 mg at night, and simethicone. She is agreeable to repeat colonoscopy. She had poor prep with PEG but did well in the past with Miralax prep She has asthma and sleep apnea and denies any cardiac problems. There are no prior problems with anesthesia or sedation. There are no infectious disease problems. She is willing to go to update her labs for anesthesia purposes. I will see her in 6 months and of course after her colonoscopy. 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 Trichomonal infection Screen for STD (sexually transmitted disease) Well woman exam Post covid-19 condition, unspecified TOUSSAINT (dyspnea on exertion) Urge incontinence Overactive bladder Stress incontinence Distal radius fracture, left Fracture of left distal radius Colon cancer screening Abdominal cramping Well woman exam with routine gynecological exam Subcutaneous abscess Cellulitis Urgency incontinence Microscopic hematuria Hx of fracture of wrist Hx of sleep apnea Hx of vertigo COVID GERD (gastroesophageal reflux disease) Pre-diabetes Epigastric pain Abdominal cramping Primary osteoarthritis of knees, bilateral Morbid obesity Osteoarthritis Fibromyalgia Arthritis Hypertension Surgical History History of open reduction and internal fixation (ORIF) procedure Hx of tubal ligation Hx of colonoscopy History of cholecystectomy (~2019) Family History Father Stomach cancer Brother Stomach problems Mother Diabetes Social History Household Members: Family Housing: Apartment Do you presently have visiting nurse or other home services: No Alcohol intake: current Alcohol intake frequency: holidays/special occasions only Comment: SLEEPING Patient Tobacco Use Status: Former Tobacco user Quit Date: 30 yrs ago Tobacco use type: Cigarette Second Hand Smoke Exposure: No Advance Directives Date on File: 01/28/20 service: No Current occupational status: unemployed Sexual orientation: Straight/Heterosexual Gender identity: Female Review of Systems Const Denies fatigue, Denies fever(s), Denies night sweats, Denies poor appetite and Denies weight loss Eyes Details: glasses Reports requires corrective lenses ENT Reports Normal hearing present, Denies dental pain, Denies dysphagia, Denies hearing loss, Denies mouth pain, Denies odynophagia, Denies throat swelling, Denies tongue swelling and Reports other (Dentition adequate) Card Reports no additional complaints Resp Reports no additional complaints GI Details: Denies abdominal pain, Denies melena, Denies bloating, Denies hematochezia, Denies constipation, Denies GI cramping, Denies dysphagia, Denies excessive flat us, Denies early satiety, Reports heartburn, Denies diarrhea, Denies nausea, Denies odynophagia, Denies vomiting and Denies hematemesis Skin/Breast Denies pruritus, Denies lesions, Denies rash and Denies jaundice Neuro Reports Normal hearing present and Denies Abnormal speech present Endo Denies fatigue Aller/Immun Denies throat swelling and Denies tongue swelling Physical Exam Vital Signs: Last Vital Signs Pulse 93 08/18/23 09:05 BP 137/78 08/18/23 09:05 BMI result Body Mass Index 43.6 Const General: cooperative, no acute distress, well developed and well groomed Nutritional Appearance: well nourished and obese Orientation/consciousness: oriented to person, oriented to place and oriented to time Limitations: language barrier HEENT Head: Yes normocephalic and Yes atraumatic Eyes General: appearance normal, both eyes and all related structures Pupils: Equal, round and reactive pupils present Neck Neck: Yes normal visual inspection and Yes no lymphadenopathy Thyroid: Thyroid normal Resp Effort & Inspection: normal respiratory effort and able to speak in complete sentences Auscultation: clear to auscultation bilaterally Cardio Rate: regular rate Rhythm: regular rhythm Heart sounds: Normal, physiologic split S2 sound present Peripheral pulses: radial pulses present and posterior tibial pulses present GI Inspection: No distended, Yes Abdominal panniculus present and Yes obesity Palpation (GI): Soft to palpation, nontender, no guarding, not rigid and No hepatosplenomegaly present Percussion: Yes normal to percussion Auscultation: normal bowel sounds Rectal Exam - Female: deferred Skin General skin exam: no rashes or lesions noted, turgor normal, skin not dry, no jaundice, No spider nevi and no striae Rashes: no rashes Nails: normal Neuro General: oriented to person, oriented to place and oriented to time Cranial nerves: Yes Equal, round and reactive pupils present and Yes Normal hearing present Speech: No Abnormal speech present Extrem General: Yes normal to inspection, No clubbing, No cyanosis and No edema Psych Appearance: grossly normal and well kempt Mental Status: mental status grossly normal Speech and movement: Normal speech and movement present Affect: normal affect Attitude: cooperative Thought process: Normal thought process present and not confabulating Thought content: Normal thought content present Insight: Fair insight present (Psych) Judgement: Fair judgement present (Psych) Assessment & Plan Assessment & Plan (1) Acute diarrhea: Comment: Resolved with cessation of tramadol Code(s): R19.7 - Diarrhea, unspecified Category: Medical (2) Erosive esophagitis: Code(s): K22.10 - Ulcer of esophagus without bleeding Category: Medical (3) Post-cholecystectomy syndrome: Comment: on CT not borne out on biopsy aeb Code(s): K91.5 - Postcholecystectomy syndrome Category: Medical (4) Tubulovillous adenoma of colon: Comment: 09/2022= poor prep repeat in 1 year; 10/07/20 SCOPE, TVA repeat 1 year Code(s): D12.6 - Benign neoplasm of colon, unspecified Category: Medical (5) GERD (gastroesophageal reflux disease): Code(s): K21.9 - Gastro-esophageal reflux disease without esophagitis Category: Medical (6) Pre-op examination: Code(s): Z01.818 - Encounter for other preprocedural examination Category: Medical Plan SYRIAN #Female family member per pt request Past Celiac studies have been negative. ? repeat scope r/t poor prep She found that the Tramadol was giving her pain, since that medication was changed she is doing better. Her stomach is doing much better and she is taking papya enzymes and a probiotic. She is moving her bowels bid and it is soft. dicyclomine 20 mg 3 times a day, esomeprazole 40 mg daily in the morning and famotidine 40 mg at night, and simethicone. She is agreeable to repeat colonoscopy. She had poor prep with PEG but did well in the past with Miralax prep She has asthma and sleep apnea and denies any cardiac problems. There are no prior problems with anesthesia or sedation. There are no infectious disease problems. She is willing to go to update her labs for anesthesia purposes. I will see her in 6 months and of course after her colonoscopy. Orders: Orders Colonoscopy - GI Use Only Today D12.6 - Benign neoplasm of colon, unspecified Medications: New bisacodyl (Dulcolax (bisacodyl)) 10 mg (2 x 5 mg) PO BEDTIME 4 tabs 0RF 2 days Refilled dicyclomine 20 mg PO TID 90 tabs 1RF esomeprazole magnesium 40 mg PO DAILY 30 caps 6RF K21.9 - Gastro-esophageal reflux disease without esophagitis famotidine 40 mg PO BEDTIME 30 tabs 6RF K21.9 - Gastro-esophageal reflux disease without esophagitis, K22.10 - Ulcer of esophagus without bleeding simethicone 180 mg PO QID 120 caps 6RF R14.0 - Abdominal distension (gaseous) Discontinued cholestyramine (with sugar) 4 gram (Questran) administer w/meal; avoid other meds within 1hr before or 4-6hr after dose Discontinued Reason: Patient Completed Course 4 grams PO BID 756 grams 6RF K91.5 - Postcholecystectomy syndrome Coding Level of Care Code Est Pt Level 4 (96516) Diagnoses Acute diarrhea R19.7 Erosive esophagitis K22.10 Post-cholecystectomy syndrome K91.5 Tubulovillous adenoma of colon D12.6 GERD (gastroesophageal reflux disease) K21.9 Pre-op examination Z01.818
== END 2023-08-18 09:38 | disposition home or self-care (01) ==
PROVIDERS: PCP Internal Medicine; Visit Provider Nurse Practitioner
DX: R19.7 Diarrhea, unspecified (principal); K22.10 Ulcer of esophagus without bleeding; K91.5 Postcholecystectomy syndrome; D12.6 Benign neoplasm of colon, unspecified; K21.9 Gastro-esophageal reflux disease without esophagitis; Z01.818 Encounter for other preprocedural examination
CPT/HCPCS: 99214

== ENCOUNTER 2023-09-01 09:13 | Outpatient (AMB) | payer OTHER, SELFPAY ==
--- NOTE | 2023-09-01 09:18 | A.OFFVIS_ITS ---
Vital Signs 09/01/23 09:20 Height 5 ft 6 in Weight 276 lb BMI 44.5 BP 140/98 H Blood Pressure Location Rt brachial Position Sitting Pulse 78 Pulse Source Pulse Oximeter Pulse Oximetry (%) 100 Intake Visit Reasons: F/U-CONF Intake Note: Patient presents for follow up. 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 Pt reports that she has not been able to use her CPAP in the last few months. She states that she had moved a few months ago, and she could not find her CPAP supplies for a littel while, and once she found them the water reservoir had grown mold which she has not been able to remove. She is worried to use the machine if the resorvoir has mold in it. She states she never received new PAP supplies after she initially received her machine in Dec 2022. When she was able to use her CPAP, she was able to sleep better and had more daytime energy. So she would like to resume using her CPAP. 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 Trichomonal infection Screen for STD (sexually transmitted disease) Well woman exam Post covid-19 condition, unspecified TOUSSAINT (dyspnea on exertion) Urge incontinence Overactive bladder Stress incontinence Distal radius fracture, left Fracture of left distal radius Colon cancer screening Abdominal cramping Well woman exam with routine gynecological exam Subcutaneous abscess Cellulitis Urgency incontinence Microscopic hematuria Hx of fracture of wrist Hx of sleep apnea Hx of vertigo COVID GERD (gastroesophageal reflux disease) Pre-diabetes Epigastric pain Abdominal cramping Primary osteoarthritis of knees, bilateral Morbid obesity Osteoarthritis Fibromyalgia Arthritis Hypertension Surgical History History of open reduction and internal fixation (ORIF) procedure Hx of tubal ligation Hx of colonoscopy History of cholecystectomy (~2019) Family History Father Stomach cancer Brother Stomach problems Mother Diabetes Social History Household Members: Family Housing: Apartment Do you presently have visiting nurse or other home services: No Alcohol intake: current Alcohol intake frequency: holidays/special occasions only Comment: SLEEPING Patient Tobacco Use Status: Former Tobacco user Quit Date: 30 yrs ago Tobacco use type: Cigarette Second Hand Smoke Exposure: No Advance Directives Date on File: 01/28/20 service: No Current occupational status: unemployed Sexual orientation: Straight/Heterosexual Gender identity: Female Review of Systems Const All systems reviewed & are unremarkable except as noted in HPI and below Physical Exam Vital Signs: Last Vital Signs Pulse 78 09/01/23 09:20 BP 140/98 H 09/01/23 09:20 Pulse Ox 100 09/01/23 09:20 BMI result Body Mass Index 44.5 Const General: no acute distress Orientation/consciousness: patient oriented x3 Resp Effort & Inspection: able to speak in complete sentences Neuro General: patient oriented x3 Psych Mental Status: mental status grossly normal Speech and movement: Clear speech present Attitude: cooperative Assessment & Plan Assessment & Plan (1) GABRIELA (obstructive sleep apnea): Comment: . Code(s): G47.33 - Obstructive sleep apnea (adult) (pediatric) Category: Medical Plan Resume APAP 6-16 cmH2O nightly > 4 hrs, once pt has received new PAP supplies- as pt has had good clinical effect from PAP use. Will request new PAP supplies from [facility], as pt's current supplies are not usbale and are the reason that pt has not been able to use her machine. Coding Level of Care Code Est Pt Level 3 (49557) Diagnoses GABRIELA (obstructive sleep apnea) G47.33
[2023-09-01 09:20] VITALS: BP 140/98; PULSE 78; O2SAT 100; BMI 44.5
== END 2023-09-01 10:19 | disposition home or self-care (01) ==
PROVIDERS: PCP Internal Medicine; Visit Provider Nurse Practitioner Family
DX: G47.33 Obstructive sleep apnea (adult) (pediatric) (principal)
CPT/HCPCS: 99213

== ENCOUNTER → 2023-09-01 09:13 | Outpatient (BNVA) | payer OTHER, SELFPAY | PROVIDERS: PCP Internal Medicine; Visit Provider Nurse Practitioner Family | DX: G47.33 Obstructive sleep apnea (adult) (pediatric) (principal) | CPT/HCPCS: 99212 ==

== ENCOUNTER 2023-09-29 09:10 | Outpatient (REF) | payer OTHER, SELFPAY | END 2023-09-29 09:11 | disposition home or self-care (01) | LOC: HO.HOSX 09:10 | PROVIDERS: PCP Internal Medicine; Visit Provider Physician Assistant | DX: M25.511 Pain in right shoulder (principal); M25.512 Pain in left shoulder; M75.42 Impingement syndrome of left shoulder; M75.41 Impingement syndrome of right shoulder | CPT/HCPCS: 20610; 99212; J1010 ==

== ENCOUNTER 2023-09-29 09:10 | Outpatient (AMB) | payer OTHER, SELFPAY ==
[2023-09-29 09:44] VITALS: BMI 43.3
--- NOTE | 2023-09-29 09:44 | A.OFFVIS_ITS ---
Vital Signs 09/29/23 09:44 Height 5 ft 6 in Weight 268 lb BMI 43.3 Intake Visit Reasons: O/V B/L Rotator cuff impingement syndrome Intake Note: Chelsi is a 58 year old female who presents today for bilateral shoulder injections. Last injections 08/11/22. Allergies No Known Allergies [No Known Allergies*] Allergy (Verified 10/03/23 09:15) HPI HPI O/V B/L Rotator cuff impingement syndrome : Details: 58-year-old female who returns to the office today for a follow-up of bilateral shoulder pain. She had her last injection on 08/11/22 that lasted for about 1 year. She would like to repeat the injection. 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 Trichomonal infection Screen for STD (sexually transmitted disease) Well woman exam Post covid-19 condition, unspecified TOUSSAINT (dyspnea on exertion) Urge incontinence Overactive bladder Stress incontinence Distal radius fracture, left Fracture of left distal radius Colon cancer screening Abdominal cramping Well woman exam with routine gynecological exam Subcutaneous abscess Cellulitis Urgency incontinence Microscopic hematuria Hx of fracture of wrist Hx of sleep apnea Hx of vertigo COVID GERD (gastroesophageal reflux disease) Pre-diabetes Epigastric pain Abdominal cramping Primary osteoarthritis of knees, bilateral Morbid obesity Osteoarthritis Fibromyalgia Arthritis Hypertension Surgical History History of open reduction and internal fixation (ORIF) procedure Hx of tubal ligation Hx of colonoscopy History of cholecystectomy (~2019) Family History Father Stomach cancer Brother Stomach problems Mother Diabetes Social History Household Members: Family Housing: Apartment Do you presently have visiting nurse or other home services: No Alcohol intake: current Alcohol intake frequency: holidays/special occasions only Comment: SLEEPING Patient Tobacco Use Status: Former Tobacco user Tobacco use type: Cigarette Second Hand Smoke Exposure: No Advance Directives Date on File: 01/28/20 service: No Current occupational status: unemployed Sexual orientation: Straight/Heterosexual Gender identity: Female Review of Systems Const All systems reviewed & are unremarkable except as noted in HPI and below Physical Exam Vital Signs: BMI result Body Mass Index 43.3 Extrem Other: Bilateral shoulder: Normal to inspection. Tenderness over the bicipital groove and along the deltoid region of the shoulder. Forward flexion to 175, external rotation to 90, internal rotation to S1. 5/5 RTC strength. Negative Ray and cross body abduction. NVI. Office Procedures Joint Injection/Drain Joint Injection/Drain Primary Site: right shoulder Secondary Site: left shoulder Prep: site was prepped using aseptic technique, ethochloride spray was applied and injection warnings given Injected: 40 mg of, DepoMedrol, with 8 mL of, 1% plain lidocaine and in the subcromial space Approach Used: posterolateral Procedure: The patient tolerated the procedure well and there was some relief with the local anesthesia Coding 88167 - Glenohumeral/Tronchanteric Bursa/Intraarticular Procedure code (CPT) selection complete Assessment & Plan Assessment & Plan (1) Rotator cuff impingement syndrome of left shoulder: Code(s): M75.42 - Impingement syndrome of left shoulder Category: Medical (2) Rotator cuff impingement syndrome of right shoulder: Code(s): M75.41 - Impingement syndrome of right shoulder Category: Medical Plan We discussed options today, which include steroid injection. The patient did consent to move forward with the bilateral shoulder injection, which was tolerated well. I recommended rest, ice, and elevation and OTC anti- inflammatories as needed for discomfort. If symptoms persist or worsen over the next 6-8 weeks, patient will contact the office, otherwise follow-up as needed. ? Patient Instructions: Scribed for Jennifer Starks PA-C, by Marcelo Magana medical supply technician, on 09/29/2023 at 9:45 AM EST.? I, Jennifer Starks PA-C, have personally reviewed and agree with the information entered by the scribe. Coding Level of Care Code Est Pt Level 3 (43441) Diagnoses Rotator cuff impingement syndrome of left shoulder M75.42 Rotator cuff impingement syndrome of right shoulder M75.41 CPT Codes Coding - Joint 7: 47326 - Glenohumeral/Tronchanteric Bursa/Intraarticular ([id number])
== END 2023-09-29 10:42 | disposition home or self-care (01) ==
PROVIDERS: PCP Internal Medicine; Visit Provider Physician Assistant
DX: M75.42 Impingement syndrome of left shoulder (principal); M75.41 Impingement syndrome of right shoulder
CPT/HCPCS: 20610; 99213

== ENCOUNTER 2023-10-03 08:40 | Day surgery (SDC) | payer OTHER, SELFPAY ==
--- NOTE | 2023-10-02 09:18 | P.CONAN_ITS ---
HPI - Anesthesia Eval Consult details Narrative: 58yo F for Cystoscopy with Bulkamid Follows [facility] [place] pulmo for asthma, scott. Stable at 08/2023 office visit [facility] Active Problems Active Problems: All Active Problems Pre-op examination (Acute) Environmental allergies (Acute) Urinary urgency (Acute) YOLA (stress urinary incontinence, female) (Acute) Intrinsic sphincter deficiency (ISD) (Acute) Colitis (Acute) Acute diarrhea (Acute) OAB (overactive bladder) (Acute) Hepatitis C antibody positive in blood (Acute) Obese (Acute) SCOTT (obstructive sleep apnea) (Acute) Asthma (Acute) Erosive esophagitis (Acute) Post-cholecystectomy syndrome (Acute) Hidradenitis suppurativa (Acute) Primary osteoarthritis of right knee (Acute) Rotator cuff impingement syndrome of left shoulder (Acute) Rotator cuff impingement syndrome of right shoulder (Acute) Tubulovillous adenoma of colon (Acute) Irritable bowel syndrome with diarrhea (Acute) Abdominal bloating (Acute) GERD (gastroesophageal reflux disease) (Acute) Carpal tunnel syndrome of right wrist (Acute) Arthritis of carpometacarpal (CMC) joint of left thumb (Acute) Heart palpitations (Acute) Past Medical History 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 Trichomonal infection Screen for STD (sexually transmitted disease) Well woman exam Post covid-19 condition, unspecified TOUSSAINT (dyspnea on exertion) Urge incontinence Overactive bladder Stress incontinence Distal radius fracture, left Fracture of left distal radius Colon cancer screening Abdominal cramping Well woman exam with routine gynecological exam Subcutaneous abscess Cellulitis Urgency incontinence Microscopic hematuria Hx of fracture of wrist Hx of sleep apnea Hx of vertigo COVID GERD (gastroesophageal reflux disease) Pre-diabetes Epigastric pain Abdominal cramping Primary osteoarthritis of knees, bilateral Morbid obesity Osteoarthritis Fibromyalgia Arthritis Hypertension Family History Family History Father Stomach cancer Brother Stomach problems Mother Diabetes Family history of problems with anesthesia: No Surgical History Surgical History History of open reduction and internal fixation (ORIF) procedure Hx of tubal ligation Hx of colonoscopy History of cholecystectomy (~2018) History of Problems with Anesthesia: No Social History Social History Household Members: Family Housing: Apartment Do you presently have visiting nurse or other home services: No Alcohol intake: current Alcohol intake frequency: holidays/special occasions only Comment: SLEEPING Patient Tobacco Use Status: Former Tobacco user Tobacco use type: Cigarette Second Hand Smoke Exposure: No Advance Directives Date on File: 01/28/20 service: No Current occupational status: unemployed Sexual orientation: Straight/Heterosexual Gender identity: Female Meds Allergies Allergy/AdvReac Type Severity Reaction Status Date / Time No Known Allergies Allergy Verified 10/03/23 09:15 [No Known Allergies*] Home Medications ?Medication ?Instructions ?Recorded ?Confirmed ?Last Taken ?Type amlodipine 10 mg tablet (Norvasc) 10 mg PO DAILY 01/23/20 10/03/23 08/25/22 08:30 History citalopram 20 mg tablet (Celexa) 20 mg PO DAILY 01/23/20 10/03/23 01/22/20 08:00 History clonazepam 0.5 mg tablet (Klonopin) 0.5 mg PO BEDTIME 01/23/20 10/03/23 01/21/20 21:00 History duloxetine 60 mg capsule,delayed 60 mg PO DAILY 01/23/20 10/03/23 01/22/20 08:00 History release (Cymbalta) amitriptyline 25 mg tablet 25 mg PO BEDTIME 01/26/22 10/03/23 Unknown History aspirin 81 mg tablet,delayed 81 mg PO DAILY 01/26/22 10/03/23 08/24/22 History release (Adult Low Dose Aspirin) cholecalciferol (vitamin D3) 50 50 mcg PO DAILY 01/26/22 10/03/23 Unknown History mcg (2,000 unit) capsule (Vitamin D3) gabapentin 600 mg tablet 600 mg PO BID 01/26/22 10/03/23 Unknown History (Neurontin) hydralazine 25 mg tablet 25 mg PO BID 01/26/22 10/03/23 Unknown History hydrochlorothiazide 25 mg tablet 25 mg PO DAILY 01/26/22 10/03/23 Unknown History losartan 100 mg tablet (Cozaar) 100 mg PO DAILY 01/26/22 10/03/23 Unknown History meclizine 25 mg tablet (Dramamine 25 mg PO TID PRN Dizziness 01/26/22 10/03/23 Unknown History (meclizine)) melatonin 3 mg tablet 3 - 6 mg PO BEDTIME PRN Insomnia 01/26/22 10/03/23 Unknown History metformin 500 mg tablet 500 mg PO BID 01/26/22 10/03/23 08/24/22 History lancets 33 gauge (TRUEplus Lancets) #100 ea 03/31/22 10/03/23 Unknown History albuterol sulfate 90 mcg/actuation 0 mcg inhalation 09/06/22 07/14/23 Unknown History aerosol inhaler (Ventolin HFA) fexofenadine 180 mg tablet 180 mg PO DAILY PRN allergies 09/06/22 10/03/23 Unknown History (Allergy Relief (fexofenadine)) blood-glucose meter (FreeStyle #1 ea 11/10/22 10/03/23 Unknown History [place] Lite kit) fluticasone 500 mcg-salmeterol 50 1 ea inhalation BID 12/01/22 10/03/23 Unknown History mcg/dose blistr powdr for inhalation oxycodone 5 mg capsule 5 mg PO BID PRN Pain 08/18/23 10/03/23 Unknown History Exam Pertinent Lab Results Pertinent Lab Results: Laboratory Tests 08/18/23 09:52 WBC 10.7 Hgb 14.2 D Hct 43.7 Plt Count 279 Sodium 138 Potassium 3.9 Chloride 102 Carbon Dioxide 25 BUN 11 Creatinine 0.76 Narrative Narrative: ECHO 2022 Conclusions: - Normal left ventricular size and systolic function. There is severely increased left ventricular wall thickness. The visually estimated ejection fraction is between 60-65%. - E/E prime ratio is between 8 and 15 consistent with indeterminate filling pressures. - Normal right ventricular cavity size and systolic function. - There is mild dilatation of the ascending aorta measuring 3.60 cm. Assessment and Plan Assessment Anesthesia Assessment: Chart Reviewed Final Anesthetic Review Family History of Problems with Anesthesia: No History of Problems with Anesthesia: No
[2023-10-03] VITALS (8 sets, daily range): BP systolic 87–128; BP diastolic 55–81; PULSE 61–96; RESP 16; TEMP 36.4; O2SAT 94–96; BMI 43.3
--- NOTE | 2023-10-03 09:36 | HO.ANESPROP2 ---
[facility] Active Problems Active Problems: All Active Problems Pre-op examination (Acute) Environmental allergies (Acute) Urinary urgency (Acute) YOLA (stress urinary incontinence, female) (Acute) Intrinsic sphincter deficiency (ISD) (Acute) Colitis (Acute) Acute diarrhea (Acute) OAB (overactive bladder) (Acute) Hepatitis C antibody positive in blood (Acute) Obese (Acute) GABRIELA (obstructive sleep apnea) (Acute) Asthma (Acute) Erosive esophagitis (Acute) Post-cholecystectomy syndrome (Acute) Hidradenitis suppurativa (Acute) Primary osteoarthritis of right knee (Acute) Rotator cuff impingement syndrome of left shoulder (Acute) Rotator cuff impingement syndrome of right shoulder (Acute) Tubulovillous adenoma of colon (Acute) Irritable bowel syndrome with diarrhea (Acute) Abdominal bloating (Acute) GERD (gastroesophageal reflux disease) (Acute) Carpal tunnel syndrome of right wrist (Acute) Arthritis of carpometacarpal (CMC) joint of left thumb (Acute) Heart palpitations (Acute) Past Medical History 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 Trichomonal infection Screen for STD (sexually transmitted disease) Well woman exam Post covid-19 condition, unspecified TOUSSAINT (dyspnea on exertion) Urge incontinence Overactive bladder Stress incontinence Distal radius fracture, left Fracture of left distal radius Colon cancer screening Abdominal cramping Well woman exam with routine gynecological exam Subcutaneous abscess Cellulitis Urgency incontinence Microscopic hematuria Hx of fracture of wrist Hx of sleep apnea Hx of vertigo COVID GERD (gastroesophageal reflux disease) Pre-diabetes Epigastric pain Abdominal cramping Primary osteoarthritis of knees, bilateral Morbid obesity Osteoarthritis Fibromyalgia Arthritis Hypertension Functional capacity: independent ambulation Patient : No Family History Family History Father Stomach cancer Brother Stomach problems Mother Diabetes Family history of problems with anesthesia: No Surgical History Surgical History History of open reduction and internal fixation (ORIF) procedure Hx of tubal ligation Hx of colonoscopy History of cholecystectomy (~2018) History of Problems with Anesthesia: No Social History Social History Household Members: Family Housing: Apartment Do you presently have visiting nurse or other home services: No Alcohol intake: current Alcohol intake frequency: holidays/special occasions only Comment: SLEEPING Patient Tobacco Use Status: Former Tobacco user Tobacco use type: Cigarette Second Hand Smoke Exposure: No Use of substances other than those prescribed or required for medical reasons: No Are you DNR?: No Advance Directives: No Advance Directives Information Provided: Yes Advance Directives Date on File: 01/28/20 service: No Current occupational status: unemployed Sexual orientation: Straight/Heterosexual Gender identity: Female Meds Allergies Allergy/AdvReac Type Severity Reaction Status Date / Time No Known Allergies Allergy Verified 10/03/23 09:15 [No Known Allergies*] Active Medications: Current Medications Albuterol Sulfate (Albuterol Sulfate (0.083%) 2.5 Mg/3 Ml Vial.Neb) 2.5 mg INHALE ONCE PRN PRN Reason: Shortness of Breath/Wheezing Lactated Ringer's (Lr) 1,000 mls @ 100 mls/hr IVCONT .Q10H ALVARADO Home Medications ?Medication ?Instructions ?Recorded ?Confirmed ?Last Taken ?Type amlodipine 10 mg tablet (Norvasc) 10 mg PO DAILY 01/23/20 10/03/23 08/25/22 08:30 History citalopram 20 mg tablet (Celexa) 20 mg PO DAILY 01/23/20 10/03/23 01/22/20 08:00 History clonazepam 0.5 mg tablet (Klonopin) 0.5 mg PO BEDTIME 01/23/20 10/03/23 01/21/20 21:00 History duloxetine 60 mg capsule,delayed 60 mg PO DAILY 01/23/20 10/03/23 01/22/20 08:00 History release (Cymbalta) amitriptyline 25 mg tablet 25 mg PO BEDTIME 01/26/22 10/03/23 Unknown History aspirin 81 mg tablet,delayed 81 mg PO DAILY 01/26/22 10/03/23 08/24/22 History release (Adult Low Dose Aspirin) cholecalciferol (vitamin D3) 50 50 mcg PO DAILY 01/26/22 10/03/23 Unknown History mcg (2,000 unit) capsule (Vitamin D3) gabapentin 600 mg tablet 600 mg PO BID 01/26/22 10/03/23 Unknown History (Neurontin) hydralazine 25 mg tablet 25 mg PO BID 01/26/22 10/03/23 Unknown History hydrochlorothiazide 25 mg tablet 25 mg PO DAILY 01/26/22 10/03/23 Unknown History losartan 100 mg tablet (Cozaar) 100 mg PO DAILY 01/26/22 10/03/23 Unknown History meclizine 25 mg tablet (Dramamine 25 mg PO TID PRN Dizziness 01/26/22 10/03/23 Unknown History (meclizine)) melatonin 3 mg tablet 3 - 6 mg PO BEDTIME PRN Insomnia 01/26/22 10/03/23 Unknown History metformin 500 mg tablet 500 mg PO BID 01/26/22 10/03/23 08/24/22 History lancets 33 gauge (TRUEplus Lancets) #100 ea 03/31/22 10/03/23 Unknown History albuterol sulfate 90 mcg/actuation 0 mcg inhalation 09/06/22 07/14/23 Unknown History aerosol inhaler (Ventolin HFA) fexofenadine 180 mg tablet 180 mg PO DAILY PRN allergies 09/06/22 10/03/23 Unknown History (Allergy Relief (fexofenadine)) blood-glucose meter (FreeStyle #1 ea 11/10/22 10/03/23 Unknown History [place] Lite kit) fluticasone 500 mcg-salmeterol 50 1 ea inhalation BID 12/01/22 10/03/23 Unknown History mcg/dose blistr powdr for inhalation oxycodone 5 mg capsule 5 mg PO BID PRN Pain 08/18/23 10/03/23 Unknown History Exam Height,Weight and Vital Signs: Height 5 ft 6 in Weight 121.563 kg Last Vital Signs Temp 97.6 F 10/03/23 09:22 Pulse 96 10/03/23 09:22 Resp 16 10/03/23 09:22 BP 128/80 10/03/23 09:22 Pulse Ox 96 10/03/23 09:22 O2 Del Method Room Air 10/03/23 09:22 Airway Mallampati Class: III TM Dist: >3cm Neck ROM: Full Heart: RRR Lungs: CTA Assessment and Plan Assessment Anesthesia Assessment: Anesthesia Plan Discussed Final Anesthetic Review Family History of Problems with Anesthesia: No History of Problems with Anesthesia: No NPO: Yes ASA Class: III Final Preanesthetic Review: Meds/Allgs Chart Reviewed, Consent Obtained/Reviewed and Anes Risks/Benef Reviewed Patient Risk: Low Procedure Risk: Low Anesthetic Plan Anesthetic Plan: GA Disposition: Standard PACU
--- NOTE | 2023-10-03 09:51 | MHC.SHP ---
Pre-Procedural Eval Section A - 24 Hr Update-Section A only Date of Service: 10/03/23 The patient is an INPATIENT: No The patient has been examined within 24 hours of the surgical procedure. The History & Physical has been completed within 30 days and I have reviewed it.: Yes Section B - Complete if H&P > 30 days Chief Complaint: Intrinsic sphincter deficiency (ISD) Allergies: Allergies Allergy/AdvReac Type Severity Reaction Status Date / Time No Known Allergies Allergy Verified 10/03/23 09:15 [No Known Allergies*] Plan Diagnosis/Plan: Unchanged I have reviewed the history and physical and performed a pertinent physical examination on my patient. No changes have occurred unless specified. Cystoscopy bulkamid, urethral bulking proximal urethral. I have discussed the risks of bulking injection to the proximal urethra to include but not limited to urine retention requiring a christensen catheter, need to repeat the procedure, hematuria, and urgency. Time Spent With Patient Time: Total time managing care of this patient today ____ minutes.
[2023-10-03] MEDS: Lactated Ringers 1,000 ML 100 ML IVCONT (10:09)
--- NOTE | 2023-10-03 11:17 | W.PM.OPN ---
Operative Note Operative Note Date of Service: 10/03/23 Narrative: Preop diagnosis: Intrinsic sphincter deficiency Postop diagnosis: Intrinsic sphincter deficiency Procedure: Cystoscopy urethral bulking with bulkamid system at the proximal urethra Surgeon: Dr. Niranjan Washburn Details of procedure: The patient was brought into the operating room placed on the OR table in supine position IV sedation was administered. Antibiotics confirmed. Ancef 2 gm IV. The patient was placed in lithotomy position prepped and draped in the usual sterile fashion. Safety time-out was done. A 14 [place] straight catheter was used to send urine for culture. 2% lidocaine jelly was inserted transurethrally 10 mL. Using the 0 degree 11 cm cystoscope with the light cord in the 6 o'clock position, the bladder was filled with sterile water to 150 mL the bladder was visualized. With the sheath at the 5 o'clock position the needle was inserted to the 1 cm rosemarie and 0.5 mL of bulkamid was injected there was good bulking noted. This was repeated on the 7 o'clock position. The 2nd needle was inserted into the sheath and an injection was done at the 2 o'clock position and again at the 11 o'clock position. There was bulking of the mucosa noted with good coaptation. The patient tolerated the procedure and was taken to recovery in stable condition. Complication: none Drains: none
[2023-10-03] MEDS: Phenazopyridine HCL 200 MG TABLET PO (12:08)
--- NOTE | 2023-10-03 16:48 | HO.POSTANES ---
Post Anesthesia Evaluation Post Anesthesia Evaluation Date of Service: 10/03/23 Vital Signs: Vital Signs Temp Pulse Resp BP Pulse Ox O2 Del Method 10/03/23 12:05 61 16 116/68 96 Room Air 10/03/23 11:50 97.5 F 68 16 122/55 L 96 Room Air 10/03/23 11:35 67 16 106/70 96 Room Air 10/03/23 11:20 66 16 115/73 95 Room Air 10/03/23 11:15 71 16 126/81 95 Room Air 10/03/23 11:10 77 16 119/68 94 Room Air 10/03/23 11:08 97.6 F 81 16 87/65 L 96 Room Air 10/03/23 09:22 97.6 F 96 16 128/80 96 Room Air Anesthesia: General LMA Mental Status: Awake Pain Control: Satisfactory Nausea/Vomiting: None Hydration: Adequate Anesthesia-Related Issues: No Anes. Related Issues
== END 2023-10-03 12:45 | disposition home or self-care (01) ==
PROVIDERS: PCP Internal Medicine; Visit Provider Urology
PROC: (CPT 51715; principal; 2023-10-03 08:40)
DX: N36.42 Intrinsic sphincter deficiency (ISD) (principal); N39.3 Stress incontinence (female) (male); R39.15 Urgency of urination; N32.81 Overactive bladder; R31.29 Other microscopic hematuria; R06.00 Dyspnea, unspecified; I10 Essential (primary) hypertension; M79.7 Fibromyalgia; R73.03 Prediabetes; Z79.899 Other long term (current) drug therapy; Z79.82 Long term (current) use of aspirin; Z79.84 Long term (current) use of oral hypoglycemic drugs; Z87.891 Personal history of nicotine dependence; Z56.0 Unemployment, unspecified
CPT/HCPCS: 51715; 87086; C1769; J0690; J1100; J2250; J2405; J2704; J3010; L8606

== ENCOUNTER → 2023-10-03 08:40 | Outpatient (BNV) | payer OTHER, SELFPAY | PROVIDERS: PCP Internal Medicine; Visit Provider Urology | DX: N36.42 Intrinsic sphincter deficiency (ISD) (principal) | CPT/HCPCS: 51715 ==

== ENCOUNTER → 2023-10-05 14:17 | Outpatient (BNVA) | payer OTHER, SELFPAY | PROVIDERS: PCP Internal Medicine; Visit Provider Urology | DX: N36.42 Intrinsic sphincter deficiency (ISD) (principal) | CPT/HCPCS: 51798 ==

== ENCOUNTER → 2024-01-09 08:42 | Day surgery (SDC) | payer OTHER, SELFPAY ==
--- NOTE | 2024-01-08 13:26 | HO.ANESPROP2 ---
HPI - Anesthesia Eval Consult details Narrative: 58yo F for Colonoscopy s/p cysto 09/2023 with GA-LMA 4 [place] [facility] [place], scott. Stable at 08/2023 office visit [facility] Active Problems Active Problems: All Active Problems Pre-op examination (Acute) Environmental allergies (Acute) Urinary urgency (Acute) YOLA (stress urinary incontinence, female) (Acute) Intrinsic sphincter deficiency (ISD) (Acute) Colitis (Acute) Acute diarrhea (Acute) OAB (overactive bladder) (Acute) Hepatitis C antibody positive in blood (Acute) Obese (Acute) SCOTT (obstructive sleep apnea) (Acute) Asthma (Acute) Erosive esophagitis (Acute) Post-cholecystectomy syndrome (Acute) Hidradenitis suppurativa (Acute) Primary osteoarthritis of right knee (Acute) Rotator cuff impingement syndrome of left shoulder (Acute) Rotator cuff impingement syndrome of right shoulder (Acute) Tubulovillous adenoma of colon (Acute) Irritable bowel syndrome with diarrhea (Acute) Abdominal bloating (Acute) GERD (gastroesophageal reflux disease) (Acute) Carpal tunnel syndrome of right wrist (Acute) Arthritis of carpometacarpal (CMC) joint of left thumb (Acute) Heart palpitations (Acute) Past Medical History 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 Trichomonal infection Screen for STD (sexually transmitted disease) Well woman exam Post covid-19 condition, unspecified TOUSSAINT (dyspnea on exertion) Urge incontinence Overactive bladder Stress incontinence Distal radius fracture, left Fracture of left distal radius Colon cancer screening Abdominal cramping Well woman exam with routine gynecological exam Subcutaneous abscess Cellulitis Urgency incontinence Microscopic hematuria Hx of fracture of wrist Hx of sleep apnea Hx of vertigo COVID GERD (gastroesophageal reflux disease) Pre-diabetes Epigastric pain Abdominal cramping Primary osteoarthritis of knees, bilateral Morbid obesity Osteoarthritis Fibromyalgia Arthritis Hypertension Family History Family History Father Stomach cancer Brother Stomach problems Mother Diabetes Family history of problems with anesthesia: No Surgical History Surgical History History of open reduction and internal fixation (ORIF) procedure Hx of tubal ligation Hx of colonoscopy History of cholecystectomy (~2018) History of Problems with Anesthesia: No Social History Social History Household Members: Family Housing: Apartment Do you presently have visiting nurse or other home services: No Alcohol intake: current Alcohol intake frequency: holidays/special occasions only Comment: SLEEPING Patient Tobacco Use Status: Former Tobacco user Tobacco use type: Cigarette Second Hand Smoke Exposure: No Advance Directives Date on File: 01/28/20 service: No Current occupational status: unemployed Sexual orientation: Straight/Heterosexual Gender identity: Female Meds Allergies Allergy/AdvReac Type Severity Reaction Status Date / Time No Known Allergies Allergy Verified 10/03/23 09:15 [No Known Allergies*] Home Medications ?Medication ?Instructions ?Recorded ?Confirmed ?Last Taken ?Type amlodipine 10 mg tablet (Norvasc) 10 mg PO DAILY 01/23/20 10/03/23 08/25/22 08:30 History citalopram 20 mg tablet (Celexa) 20 mg PO DAILY 01/23/20 10/03/23 01/22/20 08:00 History clonazepam 0.5 mg tablet (Klonopin) 0.5 mg PO BEDTIME 01/23/20 10/03/23 01/21/20 21:00 History duloxetine 60 mg capsule,delayed 60 mg PO DAILY 01/23/20 10/03/23 01/22/20 08:00 History release (Cymbalta) amitriptyline 25 mg tablet 25 mg PO BEDTIME 01/26/22 10/03/23 Unknown History aspirin 81 mg tablet,delayed 81 mg PO DAILY 01/26/22 10/03/23 08/24/22 History release (Adult Low Dose Aspirin) cholecalciferol (vitamin D3) 50 50 mcg PO DAILY 01/26/22 10/03/23 Unknown History mcg (2,000 unit) capsule (Vitamin D3) gabapentin 600 mg tablet 600 mg PO BID 01/26/22 10/03/23 Unknown History (Neurontin) hydralazine 25 mg tablet 25 mg PO BID 01/26/22 10/03/23 Unknown History hydrochlorothiazide 25 mg tablet 25 mg PO DAILY 01/26/22 10/03/23 Unknown History losartan 100 mg tablet (Cozaar) 100 mg PO DAILY 01/26/22 10/03/23 Unknown History meclizine 25 mg tablet (Dramamine 25 mg PO TID PRN Dizziness 01/26/22 10/03/23 Unknown History (meclizine)) melatonin 3 mg tablet 3 - 6 mg PO BEDTIME PRN Insomnia 01/26/22 10/03/23 Unknown History metformin 500 mg tablet 500 mg PO BID 01/26/22 10/03/23 08/24/22 History lancets 33 gauge (TRUEplus Lancets) #100 ea 03/31/22 10/03/23 Unknown History albuterol sulfate 90 mcg/actuation 0 mcg inhalation 09/06/22 07/14/23 Unknown History aerosol inhaler (Ventolin HFA) fexofenadine 180 mg tablet 180 mg PO DAILY PRN allergies 09/06/22 10/03/23 Unknown History (Allergy Relief (fexofenadine)) blood-glucose meter (FreeStyle #1 ea 11/10/22 10/03/23 Unknown History [place] Lite kit) fluticasone 500 mcg-salmeterol 50 1 ea inhalation BID 12/01/22 10/03/23 Unknown History mcg/dose blistr powdr for inhalation oxycodone 5 mg capsule 5 mg PO BID PRN Pain 08/18/23 10/03/23 Unknown History Assessment and Plan Assessment Anesthesia Assessment: Chart Reviewed Final Anesthetic Review Family History of Problems with Anesthesia: No History of Problems with Anesthesia: No
== END ==
LOC: HO.SSS 08:42
PROVIDERS: PCP Internal Medicine; Visit Provider Internal Medicine Gastroenterology
DX: Z12.11 Encounter for screening for malignant neoplasm of colon (principal); Z53.29 Procedure and treatment not carried out because of patient's decision for other reasons; Z86.010 Personal history of colon polyps

== ENCOUNTER 2024-02-15 09:24 | Outpatient (REF) | payer OTHER, SELFPAY ==
--- NOTE | ~2024-02-15 | XR_ITS ---
EXAMINATION: XR PELVIS CLINICAL INFORMATION: Pain. COMPARISON: X-ray 08/11/2020. TECHNIQUE: AP view of the pelvis. FINDINGS: Gas and stool projected over the pelvic bones and sacrum limiting evaluation. In the nonobscured bones, no acute fracture is seen. Anatomic alignment of bilateral hip joints, with mild bilateral hip joint arthritis. Suspected right SI joint arthritis. Possible mild left SI joint arthritis. The pubic rami appear intact. No suspicious soft tissue calcification. XR/XR pelvis 1-2V IMPRESSION: Gas and stool limiting evaluation. No acute fracture is seen. Right SI joint arthritis. Possible left SI joint arthritis. Electronically signed by: Camden Ramos MD 02/15/2024 05:17 PM [facility]
--- NOTE | ~2024-02-15 | XR_ITS ---
EXAMINATION: X-RAY LUMBAR SPINE CLINICAL INFORMATION: Spondylosis. Pain. COMPARISON: X-ray 08/13/2021. TECHNIQUE: 5 views. FINDINGS: Slightly exaggerated lordosis on the lateral projection. Grade 1 anterolisthesis of L4-L5 and L5 on S1. This appears similar as compared to previous. No visible acute fracture. Moderate-severe L5-S1 disc space narrowing, with anterior osteophytes. There is bridging anterior osteophytes in the visualized lower lumbar spine and at L1-L2. Anterior bony spurring at multiple levels. Multilevel facet degeneration. Surgical clips in the right upper quadrant. Nonobstructive bowel gas pattern. XR/XR lumbar spine 4V min IMPRESSION: Grade 1 anterolisthesis of L4 on L5, L5 on S1, similar to previous. Multilevel lumbar spondylosis, slightly progressed from previous. No radiographic evidence of acute fracture. Electronically signed by: Camden Ramos MD 02/15/2024 05:16 PM [facility]
== END 2024-02-15 09:25 | disposition home or self-care (01) ==
LOC: HO.XRAY 09:24
PROVIDERS: PCP Internal Medicine; Referring Provider Internal Medicine; Visit Provider Registered Nurse Emergency
DX: M47.816 Spondylosis without myelopathy or radiculopathy, lumbar region (principal); M53.3 Sacrococcygeal disorders, not elsewhere classified
CPT/HCPCS: 72110; 72170; 99202

== ENCOUNTER 2024-02-15 09:24 | Outpatient (AMB) | payer OTHER, SELFPAY ==
[2024-02-15 09:28] VITALS: BP 117/76; PULSE 85; O2SAT 95; BMI 44.1
--- NOTE | 2024-02-15 09:28 | A.OFFVIS_ITS ---
Vital Signs 02/15/24 09:28 Height 5 ft 6 in Weight 273 lb BMI 44.1 BP 117/76 Blood Pressure Location Lt brachial Position Sitting Pulse 85 Pulse Source Pulse Oximeter Pulse Oximetry (%) 95 Oxygen Delivery Method Room Air Intake Visit Reasons: Low Back Pain w/ Right-Sided Sciatica Allergies No Known Allergies [No Known Allergies*] Allergy (Verified 02/15/24 09:29) Medication List - Last Reconciled 02/15/24 by La Goodwin albuterol sulfate 90 mcg/actuation (Ventolin HFA) 0 mcg inhalation amitriptyline 25 mg PO BEDTIME amlodipine (Norvasc) 10 mg PO DAILY aspirin (Adult Low Dose Aspirin) 81 mg PO DAILY bisacodyl (Dulcolax (bisacodyl)) 10 mg (2 x 5 mg) PO BEDTIME 2 days bisacodyl (Dulcolax (bisacodyl)) 20 mg (4 x 5 mg) PO ONCE 1 day blood-glucose meter ([email or web address] [place] Lite kit) As directed cholecalciferol (vitamin D3) (Vitamin D3) 50 mcg PO DAILY citalopram (Celexa) 20 mg PO DAILY clonazepam (Klonopin) 0.5 mg PO BEDTIME dicyclomine 20 mg PO TID duloxetine (Cymbalta) 60 mg PO DAILY esomeprazole magnesium 40 mg PO DAILY famotidine 40 mg PO BEDTIME fexofenadine (Allergy Relief (fexofenadine)) 180 mg PO DAILY PRN fluticasone propion-salmeterol 500-50 mcg/dose 1 ea inhalation BID gabapentin (Neurontin) 600 mg PO BID hydralazine 25 mg PO BID hydrochlorothiazide 25 mg PO DAILY incontinence pad, liner, disp As directed, change every 2-3 hours ipratropium bromide 2 sprays intranasal TID-QID PRN 30 days lancets (TRUEplus Lancets) As directed losartan (Cozaar) 100 mg PO DAILY meclizine (Dramamine (meclizine)) 25 mg PO TID PRN melatonin 3 - 6 mg PO BEDTIME PRN metformin 500 mg PO BID mirabegron ER (Myrbetriq) 50 mg PO QAM oxybutynin chloride ER 10 mg PO DAILY 30 days oxycodone 5 mg PO BID PRN phenazopyridine (Pyridium) 200 mg PO BID 5 days polyethylene glycol 3350 (Miralax) 238 grams PO ONCE 1 day simethicone (Gas Relief (simethicone)) 180 mg PO QID HPI Comments Details: Chelsi is a very pleasant 58-year-old female who presents to the office today for evaluation management of her chronic lower back pain Visit completed with interpreter deaf, Yaritza Ledesma Patient reports that she has been suffering with this pain for ?all her life ?. It has been worse over the last 2 years. She denies any recent imaging Denies recent attempts at physical therapy, chiropractor, acupuncture, massage Endorses pain over bilateral PSIS, right worse than left. Pain is exacerbated by standing, walking, sitting She does endorse some radiation of the pain to the right thigh and around to the right groin. Denies radiation of the pain to the foot Currently taking Cymbalta, oxycodone, gabapentin yet pain persists Denies red flag symptoms including new loss of bowel, bladder or saddle anesthesia. Patient states she has been seen by neurosurgery in the past, she was told that she needs to lose weight. Has been working with weight management to help facilitate this weight loss. Pain today is rated as a 10/10, constant. 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 Trichomonal infection Screen for STD (sexually transmitted disease) Well woman exam Post covid-19 condition, unspecified TOUSSAINT (dyspnea on exertion) Urge incontinence Overactive bladder Stress incontinence Distal radius fracture, left Fracture of left distal radius Colon cancer screening Abdominal cramping Well woman exam with routine gynecological exam Subcutaneous abscess Cellulitis Urgency incontinence Microscopic hematuria Hx of fracture of wrist Hx of sleep apnea Hx of vertigo COVID GERD (gastroesophageal reflux disease) Pre-diabetes Epigastric pain Abdominal cramping Primary osteoarthritis of knees, bilateral Morbid obesity Osteoarthritis Fibromyalgia Arthritis Hypertension Surgical History History of open reduction and internal fixation (ORIF) procedure Hx of tubal ligation Hx of colonoscopy History of cholecystectomy (~2019) Family History Father Stomach cancer Brother Stomach problems Mother Diabetes Social History Household Members: Family Housing: Apartment Do you presently have visiting nurse or other home services: No Alcohol intake: current Alcohol intake frequency: holidays/special occasions only Comment: SLEEPING Patient Tobacco Use Status: Former Tobacco user Tobacco use type: Cigarette Second Hand Smoke Exposure: No Advance Directives Date on File: 01/28/20 service: No Current occupational status: unemployed Sexual orientation: Straight/Heterosexual Gender identity: Female Review of Systems Const All systems reviewed & are unremarkable except as noted in HPI and below Physical Exam Vital Signs: Last Vital Signs Pulse 85 02/15/24 09:28 BP 117/76 02/15/24 09:28 Pulse Ox 95 02/15/24 09:28 Oxygen Delivery Method Room Air 02/15/24 09:28 BMI result Body Mass Index 44.1 General: awake, alert, oriented. Answers questions appropriately. Fully engaged in examination. Skin: warm, dry, intact HEENT: Normocephalic. Hearing intact. Cardiac: External chest normal in appearance. Respiratory: No cough, audible wheezing or stridor. Abdomen: without gross distension. MS: No obvious swelling or deformities. Able to stand on bilateral tiptoes and bilateral heels.? Able to transition from sit to stand unassisted. Ambulates with bilaterally normal heel strike and toe off SLR negative bilaterally Bilateral lower extremity strength 5/5 Tenderness over bilateral PSIS [place] positive bilaterally, thigh thrust positive bilaterally, SI compression positive bilaterally Minimally tender over midline lumbar vertebrae and lumbar paraspinal muscles Decreased lumbar range of motion secondary to pain Neurological: Oriented to person, place, time and situation. Thought process intact. No gait abnormalities appreciated. Psychiatric: Appropriate mood and affect. Good judgment and insight. Results Reviewed Results Reviewed: 08/13/2021 XR/XR lumbar spine 6V w bending FINDINGS: There is normal lumbar lordosis. There is grade 1 anterolisthesis L4 over L5 and L5 over S1. Rest of the vertebral alignment is normal. There is loss of L5-S1 disc height. Rest of the disc heights are normal. There is moderate ventral and lateral spondylosis lower dorsal spine. No visible acute fracture or dislocation seen. IMPRESSION: Grade 1 anterolisthesis L4 over L5 and L5 over S1 with mild degenerative disc changes. Assessment & Plan Assessment & Plan (1) Lumbar spondylosis: Code(s): M47.816 - Spondylosis without myelopathy or radiculopathy, lumbar region Category: Medical (2) Sacroiliac joint dysfunction of both sides: Code(s): M53.3 - Sacrococcygeal disorders, not elsewhere classified Category: Medical Plan X-rays ordered for evaluation Order placed for PT eval and treat Diclofenac 50 mg p.o. twice daily as needed. Patient advised on cautions for use. If no improvement with physical therapy and nonsteroidal anti-inflammatory medications will plan for bilateral diagnostic sacroiliac joint injections under fluoroscopy guidance with local anesthetic. All questions and concerns were answered, patient agrees with the plan. Follow up after physical therapy, sooner if needed Orders: Orders XR lumbar spine 4V min Today M47.816 - Spondylosis without myelopathy or radiculopathy, lumbar region XR pelvis 1-2V Today M53.3 - Sacrococcygeal disorders, not elsewhere classified PT Evaluation and Treatment Today M47.816 - Spondylosis without myelopathy or radiculopathy, lumbar region, M53.3 - Sacrococcygeal disorders, not elsewhere classified Medications: New diclofenac potassium Take with food, do not take with any other nonsteroidal anti-inflammatory medications 50 mg PO BID PRN 60 tabs 0RF pain Coding Level of Care Code New Pt Level 4 (99772) Complex EM visit Add On G2211 Diagnoses Lumbar spondylosis M47.816 Sacroiliac joint dysfunction of both sides M53.3
== END 2024-02-15 09:57 | disposition home or self-care (01) ==
LOC: HO.PMC 09:24
PROVIDERS: PCP Internal Medicine; Referring Provider Internal Medicine; Visit Provider Registered Nurse Emergency
DX: M47.816 Spondylosis without myelopathy or radiculopathy, lumbar region (principal); M53.3 Sacrococcygeal disorders, not elsewhere classified
CPT/HCPCS: 99204; G2211

== ENCOUNTER 2024-03-01 09:08 | Outpatient (AMB) | payer OTHER, SELFPAY ==
--- NOTE | 2024-03-01 09:13 | A.OFFVIS_ITS ---
Vital Signs 03/01/24 09:15 Height 5 ft 6 in Weight 265 lb 10.512 oz BMI 42.9 BP 138/88 Blood Pressure Location Rt brachial Position Sitting Pulse 117 H Pulse Source Doppler Pulse Oximetry (%) 95 Oxygen Delivery Method Room Air Intake Visit Reasons: Shortness of breath Allergies No Known Allergies [No Known Allergies*] Allergy (Verified 03/01/24 09:19) HPI HPI Shortness of breath: Details: 58-year-old lady, remote, greater than 30 years ago, 10 pack-year smoker, with underlying obesity and moderate obstructive sleep apnea. Patient states that her asthma symptoms are well controlled on current regimen of Advair and albuterol MDI. She continues to use her CPAP machine with reasonable control of his symptoms. Patient had her COVID vaccine approximately 1 week prior and now has some productive cough and wheezing. 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 Trichomonal infection Screen for STD (sexually transmitted disease) Well woman exam Post covid-19 condition, unspecified TOUSSAINT (dyspnea on exertion) Urge incontinence Overactive bladder Stress incontinence Distal radius fracture, left Fracture of left distal radius Colon cancer screening Abdominal cramping Well woman exam with routine gynecological exam Subcutaneous abscess Cellulitis Urgency incontinence Microscopic hematuria Hx of fracture of wrist Hx of sleep apnea Hx of vertigo COVID GERD (gastroesophageal reflux disease) Pre-diabetes Epigastric pain Abdominal cramping Primary osteoarthritis of knees, bilateral Morbid obesity Osteoarthritis Fibromyalgia Arthritis Hypertension Surgical History History of open reduction and internal fixation (ORIF) procedure Hx of tubal ligation Hx of colonoscopy History of cholecystectomy (~2019) Family History Father Stomach cancer Brother Stomach problems Mother Diabetes Social History Household Members: Family Housing: Apartment Do you presently have visiting nurse or other home services: No Alcohol intake: current Alcohol intake frequency: holidays/special occasions only Comment: SLEEPING Patient Tobacco Use Status: Former Tobacco user Tobacco use type: Cigarette Second Hand Smoke Exposure: No Advance Directives Date on File: 01/28/20 service: No Current occupational status: unemployed Sexual orientation: Straight/Heterosexual Gender identity: Female Review of Systems Const Denies daytime sleepiness, Denies excessive sweating, Denies fatigue, Denies fever(s), Denies lethargy, Denies malaise, Denies night sweats, Denies snoring and Denies weight loss Eyes Denies blurry vision and Denies itchy eyes ENT Denies nasal congestion, Denies post nasal drip, Denies sinus pain, Denies sinus pressure and Denies other ( Thrush) Card Denies chest pain, Denies pedal edema, Denies dyspnea, Denies orthopnea and Denies paroxysmal nocturnal dyspnea Resp Reports cough, Denies hemoptysis, Reports excessive phlegm production, Denies dyspnea, Denies snoring and Reports wheezing GI Denies abdominal pain and Denies heartburn Musc Denies myalgias, Denies arthralgias and Denies joint swelling Skin/Breast Denies rash Neuro Denies memory loss and Denies seizure-like activity Psych Denies abnormal sleep pattern, Denies anxiety and Denies memory loss Endo Denies excessive sweating, Denies fatigue and Denies heat intolerance Segun/Lymph Denies easy bruising Aller/Immun Denies itchy eyes, Denies seasonal rhinorrhea and Reports wheezing Physical Exam Vital Signs: Last Vital Signs Pulse 117 H 03/01/24 09:15 BP 138/88 03/01/24 09:15 Pulse Ox 95 03/01/24 09:15 Oxygen Delivery Method Room Air 03/01/24 09:15 BMI result Body Mass Index 42.9 Const General: no acute distress and alert Nutritional Appearance: obese Orientation/consciousness: Other orientation findings ( oriented) HEENT Head: Yes atraumatic Eyes General: appearance normal, both eyes and all related structures Sclerae: sclerae normal EOM: EOMs intact bilaterally Neck Neck: Yes supple Lymphatic: no lymphadenopathy noted Resp Effort & Inspection: normal respiratory effort and no use of accessory muscles Auscultation: clear to auscultation bilaterally Cardio Rate: regular rate Rhythm: regular rhythm Heart sounds: no gallops, no murmurs and no rubs Skin General skin exam: other ( warm) Extrem General: No clubbing, No cyanosis and No edema Assessment & Plan Assessment & Plan (1) Environmental allergies: Code(s): Z91.09 - Other allergy status, other than to drugs and biological substances Category: Medical Plan: Controlled on current nasal ipratropium and Mylene. Continue current regimen. (2) Asthma: Code(s): J45.909 - Unspecified asthma, uncomplicated Category: Medical Plan: Well controlled on Advair and albuterol MDI. Continue current regimen. (3) GABRIELA (obstructive sleep apnea): Comment: . Code(s): G47.33 - Obstructive sleep apnea (adult) (pediatric) Category: Medical Plan: Well controlled on current CPAP therapy. Continue CPAP therapy. Medications: New prednisone 40 mg (2 x 20 mg) PO DAILY 10 tabs 0RF Coding Level of Care Code Est Pt Level 4 (77979) Diagnoses Environmental allergies Z91.09 Asthma J45.909 GABRIELA (obstructive sleep apnea) G47.33
[2024-03-01 09:15] VITALS: BP 138/88; PULSE 117; O2SAT 95; BMI 42.9
== END 2024-03-01 09:29 | disposition home or self-care (01) ==
PROVIDERS: PCP Internal Medicine; Visit Provider Internal Medicine Pulmonary Disease
DX: Z91.09 Other allergy status, other than to drugs and biological substances (principal); J45.909 Unspecified asthma, uncomplicated; G47.33 Obstructive sleep apnea (adult) (pediatric)
CPT/HCPCS: 99214

== ENCOUNTER 2024-03-01 10:14 | Outpatient (REF) | payer OTHER, SELFPAY ==
--- NOTE | ~2024-03-01 | MM_ITS ---
EXAMINATION: MM SCREENING DIGITAL BREAST TOMOSYNTHESIS, BILATERAL CLINICAL INFORMATION: Screening. Asymptomatic. COMPARISON: Mammography: Comparison is made with available priors TECHNIQUE: Digital breast mammography with tomosynthesis is performed in both the craniocaudal and mediolateral oblique views along with computer-aided detection (CAD). FINDINGS: There are scattered areas of fibroglandular density (ACR BI-RADS breast composition Category b). There are no significant masses, abnormal calcifications, or other abnormalities. MM/MM tomosynthesis screening BI IMPRESSION: No mammographic evidence of malignancy. ASSESSMENT: BI-RADS BI-RADS 1 - Negative RECOMMENDATION: Routine annual mammography screening. 1 year F/U This examination should not preclude the clinical evaluation of a suspicious palpable abnormality. This patient's information was entered into a reminder system with a target due date for their next mammogram. Electronically signed by: Taty Mccartney DO 03/12/2024 10:49 AM [facility]
== END 2024-03-01 10:15 | disposition home or self-care (01) ==
LOC: HO.MAMMO 10:14
PROVIDERS: PCP Family Medicine; Visit Provider Internal Medicine
DX: Z12.31 Encounter for screening mammogram for malignant neoplasm of breast (principal)
CPT/HCPCS: 77063; 77067; 99212

== ENCOUNTER → 2024-03-01 10:30 | Outpatient (BNV) | payer OTHER, SELFPAY | PROVIDERS: PCP Family Medicine; Visit Provider Internal Medicine | DX: Z12.31 Encounter for screening mammogram for malignant neoplasm of breast (principal) | CPT/HCPCS: 77063; 77067 ==

== ENCOUNTER 2024-03-22 14:47 | Outpatient (AMB) | payer OTHER, SELFPAY ==
--- NOTE | 2024-03-22 14:54 | MHC.OFFVIS ---
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: No Accompanied by: Self / Same As Patient Allergies No Known Allergies [No Known Allergies*] Allergy (Verified 03/22/24 14:58) Medication List - Last Reconciled 03/22/24 by MYRIAM Carlos albuterol sulfate 90 mcg/actuation (Ventolin HFA) 0 mcg inhalation amitriptyline 25 mg PO BEDTIME amlodipine (Norvasc) 10 mg PO DAILY aspirin (Adult Low Dose Aspirin) 81 mg PO DAILY bisacodyl (Dulcolax (bisacodyl)) 10 mg (2 x 5 mg) PO BEDTIME 2 days bisacodyl (Dulcolax (bisacodyl)) 20 mg (4 x 5 mg) PO ONCE 1 day blood-glucose meter ([employer] [place] Lite kit) As directed cholecalciferol (vitamin D3) (Vitamin D3) 50 mcg PO DAILY citalopram (Celexa) 20 mg PO DAILY clonazepam (Klonopin) 0.5 mg PO BEDTIME diclofenac potassium 50 mg PO BID PRN dicyclomine 20 mg PO TID duloxetine (Cymbalta) 60 mg PO DAILY esomeprazole magnesium 40 mg PO DAILY famotidine 40 mg PO BEDTIME fexofenadine (Allergy Relief (fexofenadine)) 180 mg PO DAILY PRN fluticasone propion-salmeterol 500-50 mcg/dose 1 ea inhalation BID gabapentin (Neurontin) 600 mg PO BID hydralazine 25 mg PO BID hydrochlorothiazide 25 mg PO DAILY incontinence pad, liner, disp As directed, change every 2-3 hours ipratropium bromide 2 sprays intranasal TID-QID PRN 30 days lancets (TRUEplus Lancets) As directed losartan (Cozaar) 100 mg PO DAILY meclizine (Dramamine (meclizine)) 25 mg PO TID PRN melatonin 3 - 6 mg PO BEDTIME PRN metformin 500 mg PO BID mirabegron ER (Myrbetriq) 50 mg PO QAM oxybutynin chloride ER 10 mg PO DAILY 30 days oxycodone 5 mg PO BID PRN phenazopyridine (Pyridium) 200 mg PO BID 5 days polyethylene glycol 3350 (Miralax) 238 grams PO ONCE 1 day prednisone 40 mg (2 x 20 mg) PO DAILY simethicone (Gas Relief (simethicone)) 180 mg PO QID Do you need a note to return to daycare/school/sports/work: No HPI Comments Details: 58-yr-old female presents for follow-up visit. She had a Covid-19 infection in Feb, required course of prednisone, but is now feeling better.. Since being sick, pt has struggled to resume CPAP use. Was worried her supplies needed to be replaced. Without using her CPAP, she has loud snoring, wakes up tired, has increased migraine headaches. Has migraine at least 2-3 days per week. When she is able to use her CPAP, she was able to sleep better and had more daytime energy. So she would again like to resume using her CPAP. 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 Trichomonal infection Screen for STD (sexually transmitted disease) Well woman exam Post covid-19 condition, unspecified TOUSSAINT (dyspnea on exertion) Urge incontinence Overactive bladder Stress incontinence Distal radius fracture, left Fracture of left distal radius Colon cancer screening Abdominal cramping Well woman exam with routine gynecological exam Subcutaneous abscess Cellulitis Urgency incontinence Microscopic hematuria Hx of fracture of wrist Hx of sleep apnea Hx of vertigo COVID GERD (gastroesophageal reflux disease) Pre-diabetes Epigastric pain Abdominal cramping Primary osteoarthritis of knees, bilateral Morbid obesity Osteoarthritis Fibromyalgia Arthritis Hypertension Surgical History History of open reduction and internal fixation (ORIF) procedure Hx of tubal ligation Hx of colonoscopy History of cholecystectomy (~2019) Family History Father Stomach cancer Brother Stomach problems Mother Diabetes Social History Household Members: Family Housing: Apartment Do you presently have visiting nurse or other home services: No Alcohol intake: current Alcohol intake frequency: holidays/special occasions only Comment: SLEEPING Patient Tobacco Use Status: Former Tobacco user Tobacco use type: Cigarette Second Hand Smoke Exposure: No Advance Directives Date on File: 01/28/20 service: No Current occupational status: unemployed Sexual orientation: Straight/Heterosexual Gender identity: Female Physical Exam Vital Signs: Last Vital Signs Pulse 83 03/22/24 14:55 BP 140/90 H 03/22/24 14:55 Pulse Ox 96 03/22/24 14:55 Oxygen Delivery Method Room Air 03/22/24 14:55 BMI result Body Mass Index 43.4 Const General: no acute distress Orientation/consciousness: patient oriented x3 Resp Effort & Inspection: able to speak in complete sentences Neuro General: patient oriented x3 Psych Mental Status: mental status grossly normal Speech and movement: Clear speech present Attitude: cooperative Assessment & Plan Assessment & Plan (1) GABRIELA (obstructive sleep apnea): Comment: . Code(s): G47.33 - Obstructive sleep apnea (adult) (pediatric) Category: Medical (2) Migraine without aura: Code(s): G43.009 - Migraine without aura, not intractable, without status migrainosus Category: Medical Plan Resume APAP 6-16 cmH2O nightly > 4 hrs, once pt has received new PAP supplies- as pt has had good clinical effect from PAP use. Will request new PAP supplies from [facility]. For migraine: Continue Amitriptyline. Trial Rimegepant ODT (Nurtec ODT) 75mg, 1 tab prn at onset of headache.. Max of 1 tabs (75mg) per 24 hours. May adjunct with OTC Tylenol 650mg q 4 hours, Ibuprofen 600mg q 6 hours, or Naproxen 440mg q 12 hrs prn. Potential adverse effects, include but are not limited to fatigue, nausea, dry mouth, constipation. Migraine tx contraindications: all triptans d/t HTN, tachycardia. Medications: New rimegepant (Nurtec ODT) 75 mg PO ONCE PRN 16 tabs 3RF migraine headache 30 days MDD 1 tab Coding Level of Care Code Est Pt Level 4 (13032) Diagnoses GABRIELA (obstructive sleep apnea) G47.33 Migraine without aura G43.009
[2024-03-22 14:55] VITALS: BP 140/90; PULSE 83; O2SAT 96; BMI 43.4
== END 2024-03-22 16:09 | disposition home or self-care (01) ==
PROVIDERS: PCP Internal Medicine; Visit Provider Nurse Practitioner Family
DX: G47.33 Obstructive sleep apnea (adult) (pediatric) (principal); G43.009 Migraine without aura, not intractable, without status migrainosus
CPT/HCPCS: 99214

== ENCOUNTER → 2024-03-22 14:47 | Outpatient (BNVA) | payer OTHER, SELFPAY | PROVIDERS: PCP Internal Medicine; Visit Provider Nurse Practitioner Family | DX: G47.33 Obstructive sleep apnea (adult) (pediatric) (principal); G43.009 Migraine without aura, not intractable, without status migrainosus | CPT/HCPCS: 99212 ==

== ENCOUNTER 2024-07-10 11:54 | Outpatient (REF) | payer OTHER, SELFPAY ==
[2024-07-10 12:15] LABS: MANUAL DIFF FLAG NO
[2024-07-10 12:41] LABS: Basophils Percent Auto 0.4 % (0-2); Eosinophils Absolute Auto 0.1 X10*3/uL (0.0-0.4); Eosinophils Percent Auto 1.2 % (0-4); Hematocrit 43.4 % (37.0-47.0); Imm Gran Abs Auto 0.03 X10*3/uL (0.00-0.03); Imm Gran Pct Auto 0.3 % (0.0-0.4); Lymphocytes Percent Auto 18.3 % (20-40); Mean Corpuscular HGB Conc 32.3 g/dl (31.0-35.0); Mean Corpuscular Hemoglobin 28.5 pg (27.0-33.0); Mean Corpuscular Volume 88.4 fL (80.0-98.0); Monocytes Absolute Auto 0.7 X10*3/uL (0.1-1.2); Monocytes Percent Auto 6.8 % (2-11); Neutrophils Absolute Auto 7.8 x10*3/uL (2.0-8.3); Platelet Count 268 X10*3/uL (160-400); Red Blood Count 4.91 X10*6/uL (4.20-5.50); Red Cell Distribution Width 13.7 % (11.0-16.0); White Blood Count 10.7 X10*3/uL (4.8-10.8)
[2024-07-10 12:50] LABS: Estimated Average Glucose 117 mg/dL; Hemoglobin A1C 142.0376 umol/L; Hemoglobin A1c % 5.7 % (<6.0); Total Hemoglobin (HGBA1C) 3690.8343 umol/L
[2024-07-10 13:21] LABS: Alanine Aminotransferase 26 U/L (0-31); Albumin Level 3.8 g/dL (3.5-5.0); Alkaline Phosphatase 120 U/L (39-117); Anion Gap 9 (12-20); Aspartate Amino Transferase 21 U/L (5-31); Bilirubin Total 0.2 mg/dL (0.0-1.0); Blood Urea Nitrogen 16 mg/dL (9-16); Calcium 8.8 mg/dL (8.4-10.2); Carbon Dioxide 24 mmol/L (22-29); Chloride 110 mmol/L (96-108); Cholesterol 163 mg/dL (<200); Estimated Glomerular Filt Rate > 60; Glucose Random 96 mg/dL (60-115); HDL Cholesterol 40 mg/dL (>40); LDL Cholesterol Calculated 90 mg/dL (<100); Potassium 4.2 mmol/L (3.3-5.1); Sodium 139 mmol/L (135-145); Total Protein 7.1 g/dL (6.5-8.0); Triglycerides 167 mg/dL (<150)
[2024-07-10 13:38] LABS: Vitamin D 25-OH Total 47.8 ng/mL (>30)
--- OUTSIDE RECORDS SUMMARY | 2024-07-10 14:28 | XMS_ITS | Encounter Summary ---
Author Organization [employer] Address [address] [facility] [address] [place] [address] Care Team Providers Care Waste Handling Technician Name Role Phone Chelsi Kauffman MD Primary Care Provide r Reason for Visit * Reason Comments Med Refill Encounter Details Date Type Department Care Team ([facility] st Contact Info) Description 04/04/2023 Refill [facility] [address], [place] [phone] Chelsi Kauffman MD [address] [place], [place] [phone] Asthma in adult, moderate persistent, uncomplicated Social History Tobacco Use Types Packs/Day Years Used Date Smoking Tobacco: Never Passive Smoke Exposure: Never Smokeless Tobacco: Never Depression Answer Date Recorded Patient Health Questionnaire-9 Score 24 07/26/2022 Housing Stability Answer Date Recorded What is your housing situation today? I have moni tellez 01/26/[address] you li ve. Do you have problems with any of the following? None of the above 01/26/2023 Food Insecurity Answer Date Recorded Within the past 12 months, y ou worried that your food would run out before you got money to buy more: Never True 01/26/2023 Within the past 12 months,th e food you bought just didn't last and you didn't have enough money to get more: Never True Transportation Answer Date Recorded In the past 12 months, has l ack of transportation kept you from medical appts, meetings, work or from getting things needed for daily living? No 01/26/2023 Utilities Answer Date Recorded In the past 12 months, has t he electric, gas, oil or water company threatened to shut off services in your home? No 01/26/2023 Depression Answer Date Recorded Patient Health Questionnaire-2 Score 6 07/26/2022 Comments Unknown Sex and Gender Information Value Date Recorded Sex Assigned at Female 02/07/2022 10:35 AM EDT Legal Sex Female 10:35 AM EDT Gender Identity Female 02/07/2022 10:35 AM EDT Sexual Orientation Straight 02/07/2022 10 :35 AM EDT documented as of this encounter Plan of Treatment Upcoming Encounters Date Type Department Care Team (Late st Contact Info) Description 07/16/2024 9:45 AM EDT Office Visit [facility] [address] [place] [address] 08/08/2024 11:00 AM EDT Office Visit [facility] [address] [place] [address] Alireza, Nicole [address] [place] [address] 08/28/2024 9:00 AM EDT Office Visit [facility] [address] [place] [address] Rito, Kennedi, OD [address] [place] [address] 09/23/2024 11:15 AM EDT Office Visit [facility] [address] [place] [address] Chelsi Kauffman MD [address] [place] [address] documented as of this encounter Visit Diagnoses Diagnosis Asthma in adult, moderate persistent, uncomplicated documented in this encounter Additional Health Concerns Assessment Noted Time PHQ-9 Depression Total Score: 24 023 2:25 PM EDT documented as of this encounter Care Teams Waste Handling Technician Relationship Specialty Start Date End Date Chelsi Kauffman MD [address] [place] [id number] PCP - General Family Medicine 12/20/18 documented as of this encounter
--- OUTSIDE RECORDS SUMMARY | 2024-07-10 14:28 | XMS_ITS | Encounter Summary ---
Author Organization [employer] Address [address] [place] [address] Care Team Providers Care Audiology Assistant Name Role Phone Chelsi Kauffman MD Primary Care Provide r Reason for Visit * Reason Comments Med Refill Encounter Details Date Type Department Care Team ([facility] st Contact Info) Description 03/31/2023 Refill [facility] [address] [place] [address] Kiana Santos, DO [address] [place] [address] Vitamin D deficiency, unspecified Social History Tobacco Use Types Packs/Day Years Used Date Smoking Tobacco: Never Passive Smoke Exposure: Never Smokeless Tobacco: Never Depression Answer Date Recorded Patient Health Questionnaire-9 Score 24 07/26/2022 Housing Stability Answer Date Recorded What is your housing situation today? I have monisam tellez 01/26/[address] you [...] Description 07/16/2024 9:45 AM EDT Office Visit [facility] [address] [place] [address] 08/08/2024 11:00 AM EDT Office Visit [facility] [address] [place] [address] Alireza, Nicole [address] [place] [address] 08/28/2024 9:00 AM EDT Office Visit [facility] [address] [place] [address] Rito, Kennedi, OD [address] [place] [address] 09/23/2024 11:15 AM EDT Office Visit [facility] [address] [place] [address] Chelsi Kauffman MD [address] [place] [address] documented as of this encounter Visit Diagnoses Diagnosis Vitamin D deficiency, unspecified documented in this encounter Additional Health Concerns Assessment Noted Time PHQ-9 Depression Total Score: 24 023 2:25 PM EDT documented as of this encounter Care Teams Audiology Assistant Relationship Specialty Start Date End Date Chelsi Kauffman MD [address] [place] [id number] PCP - General Family Medicine 12/20/18 documented as of this encounter
--- OUTSIDE RECORDS SUMMARY | 2024-07-10 14:28 | XMS_ITS | Encounter Summary ---
Author Organization [email or web address] [facility] Address [address] [facility] [address] [place] [address] Care Team Providers Care Rail Operator Name Role Phone Chelsi Kauffman MD Primary Care Provide r Reason for Visit * Reason Comments Med Refill Encounter Details Date Type Department Care Team ([facility] st Contact Info) Description 03/31/2023 Refill [facility] [address] [place] [address] Chelsi Kauffman MD [address] [place] [address] Dermatitis, seborrheic; Polyarthralgia Social History Tobacco Use Types Packs/Day Years [...] Description 07/16/2024 9:45 AM EDT Office Visit [facility] [address] [place] [address] 08/08/2024 11:00 AM EDT Office Visit [facility] AD[facility] [address] [place] [address] Alireza, Nicole [address] [place] [address] 08/28/2024 9:00 AM EDT Office Visit [facility] [address] [place] [address] Rito, Kennedi, OD [address] [place] [address] 09/23/2024 11:15 AM EDT Office Visit [facility] [address] [place] [address] Chelsi Kauffman MD [address] [place] [address] documented as of this encounter Visit Diagnoses Diagnosis Dermatitis, seborrheic Unspecified seborrheic dermatitis Polyarthralgia Pain in joint, multiple sites documented in this encounter Additional Health Concerns Assessment Noted Time PHQ-9 Depression Total Score: 24 023 2:25 PM EDT documented as of this encounter Care Teams Rail Operator Relationship Specialty Start Date End Date Chelsi Kauffman MD [address] [place] [id number] PCP - General Family Medicine 12/20/18 documented as of this encounter
--- OUTSIDE RECORDS SUMMARY | 2024-07-10 14:28 | XMS_ITS | Encounter Summary ---
Author Organization [employer] [facility] Address [address] [facility] [address] [place] [address] Care Team Providers Care Millstone Cleaner Name Role Phone Chelsi Kauffman MD Primary Care Provide r Reason for Visit * Reason Comments Med Refill Encounter Details Date Type Department Care Team ([facility] st Contact Info) Description 03/16/2023 Refill [facility] [address] [place] [address] Chelsi Kauffman MD [address] [place] [address] Dry eyes Social History Tobacco Use Types Packs/Day Years [...] t he electric, gas, oil or water [employer] threatened to shut off services in your [...] Description 07/16/2024 9:45 AM EDT Office Visit [facility] [address] [place] [address] 08/08/2024 11:00 AM EDT Office Visit [facility] [address] [place] [address] Alireza, Nicole [address] [place] [address] 08/28/2024 9:00 AM EDT Office Visit [facility] [address] [place] [address] Rito, Kennedi, OD [address] [place] [address] 09/23/2024 11:15 AM EDT Office Visit [facility] [address] [place] [address] Chelsi Kauffman MD [address] [place] [address] documented as of this encounter Visit Diagnoses Diagnosis Dry eyes Unspecified tear film insufficiency documented in this encounter Additional Health Concerns Assessment Noted Time PHQ-9 Depression Total Score: 24 023 2:25 PM EDT documented as of this encounter Care Teams Millstone Cleaner Relationship Specialty Start Date End Date Chelsi Kauffman MD [address] [place] [address] PCP - General Family Medicine 12/20/18 documented as of this encounter
--- OUTSIDE RECORDS SUMMARY | 2024-07-10 14:29 | XMS_ITS | Clinical Summary ---
Author Organization [employer] Address [address] [facility] [address] [place] [address] Care Team Providers Care Chief Psychologist Name Role Phone Chelsi Kauffman MD Primary Care Provide r Allergies No known active allergies Medications acetaminophen (Tylenol) 500 MG tablet Take 1 tablet by mouth every 4 (four) hours. 020 Active esomeprazole (NexIUM) [address] capsuleIndicatio ns:Nausea and vomiting, unspecified vomiting type Take 1 capsule (40 mg) by mouth before breakfast. Do not open capsule. 30 capsule 11 023 Active clonazePAM (KlonoPIN) 0.5 MG tabletIndication s:Anxiety Take 1 tablet (0.5 mg) by mouth 2 times daily for 15 days. 30 tablet 023 Active dicyclomine (Bentyl) 20 MG tablet Take 20 mg by mouth 3 times daily. 023 Active famotidine (Pepcid) 40 MG tablet Take 40 mg by mouth at bedtime. 023 Active melatonin 3 MG tablet TAKE 1 TO 2 TABLETS BY MOUTH DAILY AT BEDTIME NEEDED Active Simethicone Ultra Strength 180 MG capsule Take 180 mg by mouth 4 times daily. 023 Active glucose blood (FREESTYLE LITE) test strip USE TO TEST BLOOD SUGAR TWICE DAILY 50 strip Active TRUEplus Lancets 33G miscIndications: IFG (impaired fasting glucose) TEST BLOOD SUGAR TWICE DAILY 100 each 11 Active ipratropium (Atrovent) 0.06 % nasal spray Active Myrbetriq 50 MG 24 hr tablet Take 50 mg by mouth Once per day. Active naloxone (Narcan) 4 mg/0.1 mL nasal sprayIndications :Chronic midline low back pain with right-sided sciatica FOR SUSPECTED OPIOID OVERDOSE. SPRAY 0.1mL IN ONE NOSTRIL. REPEAT IN ALTERNATE NOSTRIL 2-3 MINUTES IF NEEDED. SEEK MEDICAL ATTENTION IMMEDIATELY EVEN IF PATIENT RESPONDS. 2 each 3 Active ketoconazole (NIZOral) 2 % shampoo APPLY TO SCALP AND LEAVE ON FOR 5 MINUTES THEN RINSE OFF TWICE A WEEK Active cholecalciferol (D3 Super Strength) 50 MCG (1999 UT) capsuleIndicatio ns:Vitamin D deficiency, unspecified TAKE 1 CAPSULE BY MOUTH EVERY MORNING 90 capsule 1 Active Alcohol Swabs (Alcohol Prep) 70 % padsIndications: Prediabetes USE TO TEST BLOOD SUGAR BEFORE MEALS AND SNACKS AND BEFORE BEDTIME 100 each 5 024 Active diclofenac (Cataflam) 50 MG tablet Take 50 mg by mouth 2 times daily. Active polyvinyl alcohol (Liquifilm Tears) 1.4 % ophthalmic solutionIndicati ons:Dry eye syndrome of bilateral lacrimal glands PLACE 1 DROP IN EACH EYE THREE TIMES DAILY IN THE MORNING, AT NOON, AND AT BEDTIME NEEDED FOR DRY EYES 15 mL 1 Active albuterol (2.5 MG/3ML) 0.083% nebulizer solutionIndicati ons:Mild persistent asthma without complication INHALE 1 AMPULE USING A NEBULIZER THREE TIMES DAILY 90 mL 1 Active Blood Glucose Monitoring Suppl ([employer] Ranger Lite) w/Device kitIndications:P rediabetes Use to test blood sugar 2 times daily 1 kit Active hydroCHLOROthiaz gary (HYDRODiuril) 25 MG tablet TAKE 1 TABLET BY MOUTH EVERY MORNING 90 tablet 3 Active losartan (Cozaar) 100 MG tablet TAKE 1 TABLET BY MOUTH EVERY MORNING 90 tablet 3 Active Blood Pressure kit Use to check BP as directed. 1 kit Active fluticasone (Flonase) 50 MCG/ACT nasal sprayIndications :Allergic conjunctivitis, unspecified laterality INSTILL 2 SPRAYS IN EACH NOSTRIL ONCE DAILY IN THE MORNING 48 g 1 024 Active fexofenadine (Mylene) 180 MG tabletIndication s:Asthma in adult, moderate persistent, uncomplicated TAKE 1 TABLET BY MOUTH EVERY MORNING NEEDED FOR ALLERGIES 90 tablet 1 024 Active albuterol (Ventolin HFA) 108 (90 Base) MCG/ACT inhalerIndicatio ns:Mild intermittent asthma without complication INHALE 2 PUFFS BY MOUTH EVERY 4 TO 6 HOURS NEEDED 18 g 025 Active metFORMIN (Glucophage) 500 MG tabletIndication s:Prediabetes TAKE 1 TABLET BY MOUTH TWICE DAILY IN THE MORNING AND AT BEDTIME WITH FOOD 180 tablet 1 025 Active clotrimazole-bet amethasone (Lotrisone) creamIndications :Intertrigo APPLY 1/2 GRAM TOPICALLY TO AFFECTED AREA(S) TWICE DAILY FOR 28 DAILY 30 g 1 025 Active meclizine (Antivert) 25 MG tabletIndication s:Vertigo TAKE 1 TABLET BY MOUTH THREE TIMES DAILY 90 tablet 2 025 Active amLODIPine (Norvasc) 10 MG tabletIndication s:Hypertension, unspecified type TAKE 1 TABLET BY MOUTH EVERY MORNING 90 tablet 1 025 Active Aspirin Low Dose 81 MG EC tabletIndication s:Preventative health care TAKE 1 TABLET BY MOUTH EVERY MORNING 90 tablet 1 025 Active Calcium Carb-Cholecalcif terri (Oyster Shell Calcium w/D) 500-5 MG-MCG tabletIndication s:Polyarthralgia TAKE 1 TABLET BY MOUTH EVERY MORNING 90 tablet 025 Active oxyCODONE (Roxicodone) 5 MG immediate release tabletIndication s:Chronic midline low back pain with right-sided sciatica,Polyart hralgia TAKE 1 TABLET BY MOUTH EVERY TWELVE HOURS NEEDED FOR SEVERE PAIN FOR UP TO 28 DAYS 56 tablet 025 Active Tirzepatide-Weig ht Management (Zepbound) 10 MG/0.5ML solution auto-injectorInd ications:Class 3 severe obesity due to excess calories with serious comorbidity and body mass index (BMI) of 40.0 to 44.9 in adult ([facility]) Inject 0.5 mL (10 mg) under the skin 1 (one) time per week. 2 mL 025 Active butalbital-aceta minophen-caffein e 50-325-40 MG tabletIndication s:Migraine without aura, not refractory TAKE 1 TO 2 TABLETS BY MOUTH EVERY 4 HOURS NEEDED 9 tablet 1 025 Active citalopram (CeleXA) 20 MG tabletIndication s:Moderate episode of recurrent major depressive disorder (CMS/HCC) TAKE 1 TABLET BY MOUTH EVERY MORNING 30 tablet 3 025 Active amitriptyline (Elavil) 50 MG tabletIndication s:Migraine without aura, not refractory TAKE 1 TABLET BY MOUTH AT BEDTIME 30 tablet 3 025 Active gabapentin (Neurontin) 600 MG tabletIndication s:Chronic toe pain, left foot TAKE 1 TABLET BY MOUTH TWICE DAILY IN THE MORNING AND IN THE EVENING 60 tablet 1 025 Active DULoxetine (Cymbalta) [address] capsuleIndicatio ns:Moderate episode of recurrent major depressive disorder (CMS/HCC) TAKE 1 CAPSULE BY MOUTH EVERY MORNING 30 capsule 3 025 Active hydrALAZINE (Apresoline) 25 MG tabletIndication s:HTN (hypertension), benign TAKE 1 TABLET BY MOUTH TWICE DAILY IN THE MORNING AND AT BEDTIME 60 tablet 11 025 Active carvedilol (Coreg) 6.25 MG tabletIndication s:Essential hypertension TAKE 1 TABLET BY MOUTH WITH BREAKFAST AND EVENING MEAL 60 tablet 11 025 Active carvedilol (Coreg) 6.25 MG tabletIndication s:Essential hypertension Take 1 tablet (6.25 mg) by mouth with breakfast and with evening meal. 60 tablet 11 024 2024 Discontinued(R eorder (will not trigger notification to Pharmacy)) butalbital-aceta minophen-caffein e 50-325-40 MG tabletIndication s:Migraine without aura, not refractory TAKE 1 TO 2 TABLETS BY MOUTH EVERY 4 HOURS NEEDED 9 tablet 1 024 2024 Discontinued Calcium Carb-Cholecalcif terri (Oyster Shell Calcium w/D) 500-5 MG-MCG tabletIndication s:Polyarthralgia TAKE 1 TABLET BY MOUTH EVERY MORNING 90 tablet 024 2024 Discontinued gabapentin (Neurontin) 600 MG tabletIndication s:Chronic toe pain, left foot TAKE 1 TABLET BY MOUTH TWICE DAILY IN THE MORNING AND IN THE EVENING 60 tablet 1 025 2024 Discontinued amitriptyline (Elavil) 50 MG tabletIndication s:Migraine without aura, not refractory TAKE 1 TABLET BY MOUTH AT BEDTIME 30 tablet 1 025 2024 Discontinued DULoxetine (Cymbalta) [address] Lemuel ns:Moderate episode of recurrent major depressive disorder (CMS/HCC) TAKE 1 CAPSULE BY MOUTH EVERY MORNING 30 capsule 1 025 2024 Discontinued citalopram (CeleXA) 20 MG tabletIndication s:Moderate episode of recurrent major depressive disorder (CMS/HCC) TAKE 1 TABLET BY MOUTH EVERY MORNING 30 tablet 1 025 2024 Discontinued hydrALAZINE (Apresoline) 25 MG tabletIndication s:HTN (hypertension), benign TAKE 1 TABLET BY MOUTH TWICE DAILY IN THE MORNING AND AT BEDTIME 60 tablet 1 025 2024 Discontinued oxyCODONE (Roxicodone) 5 MG immediate release tabletIndication s:Chronic midline low back pain with right-sided sciatica,Polyart hralgia TAKE 1 TABLET BY MOUTH EVERY TWELVE HOURS NEEDED FOR SEVERE PAIN FOR UP TO 28 DAYS 56 tablet 025 2024 Discontinued Tirzepatide-Weig ht Management (Zepbound) 7.5 MG/0.5ML solution auto-injectorInd ications:Class 3 severe obesity due to excess calories with serious comorbidity and body mass index (BMI) of 40.0 to 44.9 in adult (CMS/HCC) Inject 0.5 mL (7.5 mg) under the skin 1 (one) time per week. 2 mL 025 2024 Discontinued Active Problems Problem Noted Date Diagnosed Date Chronic bilateral low back pain without sciatica 06/21/2024 Assessment & Plan (06/21/2024 3:13 PM EDT): Continue with same pain medications as needed I will put referral in for chiropractor Ear pain, bilateral 03/26/2024 Assessment & Plan (03/26/2024 11:07 AM EST): Normal PE today. Most likely related to allergic rhinitis/sinus congestion. - Continue treatment for allergic rhinitis. Long-term current use of opiate analgesic 2023 Overview (04/24/2024): Dx: lumbar anterolisthesis Rx: oxycodone 5mg BID Last [employer] ATT[employer]ER agreement: 04/23/24 Tier: III (Q4-6 months), Dr. Go 04/24/24 Assessment & Plan (06/20/2024 11:21 AM EDT): Timeline: - 06/08/23: pill count/utox as expected - 08/07/23: pill count/utox as expected - 01/18/24: pill count/utox as expected - 02/22/24: Group - pill count/utox as expected - 04/23/24: Group- pill count/utox as expected - 06/18/24: Group visit - pill count/utox as expected Assessment & Plan (04/23/2024 5:22 PM EST): Timeline: - 06/08/23: pill count/utox as expected - 08/07/23: pill count/utox as expected - 01/18/24: pill count/utox as expected - 02/22/24: Group - pill count/utox as expected - 04/23/24: Group- pill count/utox as expected Class 3 severe obesity due t o excess calories with serious comorbidity and body mass index (BMI) of 40.0 to 44.9 in adult 01/17/2024 Assessment & Plan (06/21/2024 3:13 PM EDT): Counseling about healthy diet and exercise done I will increase her step down to 10 mg weekly Assessment & Plan (02/20/2024 12:18 PM EST): I will go up on wegovy dose to 0.5mg weekly Assessment & Plan (01/18/2024 2:15 PM EDT): I will start wegovy for patient, its my medical opinion patient will benefit form medication Screening mammogram for breast cancer 01/17/2024 Abdominal bloating 11/27/2023 Abdominal cramping 11/27/2023 Acute diarrhea 11/27/2023 Arthritis of carpometacarpal (CMC) joint of left thumb 11/27/2023 Asthma 11/27/2023 Carpal tunnel syndrome of right wrist 11/27/2023 Colitis 11/27/2023 TOUSSAINT (dyspnea on exertion) 11/27/2023 Environmental allergies 11/27/2023 Erosive esophagitis 11/27/2023 Fracture of distal end of radius 11/27/2023 GERD (gastroesophageal reflux disease) Hepatitis C antibody positive in blood Hidradenitis suppurativa 11/27/2023 Intrinsic sphincter deficiency (ISD) 11/27/2023 Overactive bladder 11/27/2023 Post-cholecystectomy syndrome 11/27/2023 Pre-op examination 11/27/2023 Rotator cuff impingement syndrome 11/27/2023 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 Trichomonal infection 11/27/2023 Tubulovillous adenoma of colon 11/27/2023 Urinary urgency 11/27/2023 Obese 11/27/2023 Screen for STD (sexually transmitted disease) Well woman exam 11/27/2023 YOLA (stress urinary incontinence, female) 2023 GABRIELA (obstructive sleep apnea) 11/27/2023 Post covid-19 condition, unspecified 11/27/2023 Tipped teeth 10/31/2023 Teeth missing 10/31/2023 Dental caries 10/31/2023 Dental plaque 10/31/2023 Periodontal disease 10/31/2023 Other irritable bowel syndrome 07/27/2023 Irritable bowel syndrome wit h both constipation and diarrhea 07/27/2023 Assessment & Plan (07/27/2023 1:57 PM EDT): Continue to follow with GI Encounter for cervical Pap smear with pelvic exa m 07/04/2023 Assessment & Plan (07/04/2023 4:16 PM EDT): PAP and pelvic exam done Patient will be contacted with results Mixed stress and urge urinary incontinence 07/03 Assessment & Plan (07/27/2023 2:00 PM EDT): Prescription for wipes, ads and liners will be generated Assessment & Plan (07/04/2023 4:14 PM EDT): Prescription will be generated for bed pads, pads and wipes Anterolisthesis of lumbar spine 04/25/2023 Overview (04/23/2024): Lumbar xray 02/2024 IMPRESSION: Grade 1 anterolisthesis of L4 on L5, L5 on S1, similar to previous. Multilevel lumbar spondylosis, slightly progressed from previous. No radiographic evidence of acute fracture Assessment & Plan (06/20/2024 11:20 AM EDT): -Good engagement and participation with Group Medical Visit model -Encouraged multifactorial approach to pain control including pharm and non- pharm modalities -UTOX and Pill count as expected Assessment & Plan (04/23/2024 5:23 PM EST): -Good engagement and participation with Group Medical Visit model -Encouraged multifactorial approach to pain control including pharm and non- pharm modalities -UTOX and Pill count as expected Assessment & Plan (02/20/2024 12:38 PM EST): Pt attended and participated in group today and participated to the fullest extent of her ability, was interested and excited about learning about the group model - urine tox and pill count not performed as last normal one month ago - followup in one month for theme reflections Assessment & Plan (02/20/2024 12:19 PM EST): C/w pain management C/w same medication regimen Assessment & Plan (07/27/2023 2:01 PM EDT): I will discontinue today her tramadol and I will start her on oxycodone 5mg BID PRN, I let her know I will not go up on her dose, I explain to her that due to the fact she is also on clonazepam she is high risk one in 10 pillow, and recliner prescription will be generated Assessment & Plan (07/04/2023 4:18 PM EDT): I gave patient an appointment for re-evaluation of pain Assessment & Plan (06/12/2023 4:44 PM EST): 10 in one pillow prescription will be generated Dermatitis, seborrheic 02/06/2023 Polyarthralgia 02/06/2023 Assessment & Plan (02/20/2024 12:18 PM EST): 4 in one pillow will be prescribed Unstable gait 02/06/2023 Assessment & Plan (06/21/2024 3:12 PM EDT): Prescriptions for left forearm, and grab bars will be generated for patient Assessment & Plan (07/27/2023 2:00 PM EDT): I will prescrie for her -4 leg cane -bath mat (anti slip) Assessment & Plan (02/06/2023 11:55 AM EDT): Step for bath tube prescription will be generated as well as anti slip mat Dry eyes 10/12/2022 Intertrigo 10/12/2022 Anxiety 10/12/2022 Post-COVID syndrome 07/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 Initial goal of 30 min walk 3-5x/week. Increase as tolerated. - low-sodium diet (goal: <2g/day) and heart healthy diet such as DASH to reduce BP and prevent ASCVD. - Home BP monitoring 1-2 x day with goal of <140/90. - Seek immediate medical attention for chest pain, palpitations, SOB, syncope, or sudden changes in mental status. - Do not change or discontinue current prescriptions without first consulting health care provider Assessment & Plan (07/27/2023 1:57 PM EDT): -I added today carvedilol 6.25mg BID, I also advise: - Aerobic exercise to reduce BP. Initial goal of 30 min walk 3-5x/week. Increase as tolerated. - low-sodium diet (goal: <2g/day) and heart healthy diet such as DASH to reduce BP and prevent ASCVD. - Home BP monitoring 1-2 x day with goal of <140/90. - Seek immediate medical attention for chest pain, palpitations, SOB, syncope, or sudden changes in mental status. - Do not change or discontinue current prescriptions without first consulting health care provider Assessment & Plan (07/04/2023 4:17 PM EDT): Elevated today possibly due to pain I advise low Na diet, weight reduction and to take her medications every day I advise to log BP at home and bring log for next visit RTC 4 weeks Assessment & Plan (04/25/2023 12:30 PM EST): -I advise to take her medications every day - Aerobic exercise to reduce BP. Initial goal of 30 min walk 3-5x/week. Increase as tolerated. - low-sodium diet (goal: <2g/day) and heart healthy diet such as DASH to reduce BP and prevent ASCVD. - Home BP monitoring 1-2 x day with goal of <140/90. - Seek immediate medical attention for chest pain, palpitations, SOB, syncope, or sudden changes in mental status. - Do not change or discontinue current prescriptions without first consulting health care provider Assessment & Plan (02/06/2023 11:53 AM EDT): - Aerobic exercise to reduce BP. Initial goal of 30 min walk 3-5x/week. Increase as tolerated. - low-sodium diet (goal: <2g/day) and heart healthy diet such as DASH to reduce BP and prevent ASCVD. - Home BP monitoring 1-2 x day with goal of <140/90. - Seek immediate medical attention for chest pain, palpitations, SOB, syncope, or sudden changes in mental status. - Do not change or discontinue current prescriptions without first consulting health care provider Assessment & Plan (10/12/2022 2:13 PM EDT): - Aerobic exercise to reduce BP. Initial goal of 30 min walk 3-5x/week. Increase as tolerated. - low-sodium diet (goal: <2g/day) and heart healthy diet such as DASH to reduce BP and prevent ASCVD. - Home BP monitoring 1-2 x day with goal of <140/90. - Seek immediate medical attention for chest pain, palpitations, SOB, syncope, or sudden changes in mental status. - Do not change or discontinue current prescriptions without first consulting health care provider Assessment & Plan (07/26/2022 3:00 PM EDT): Maintenance: BMP: Lipid Panel: ASCVD Risk: Calculate pending updated labs EKG: Obtain baseline at f/u - Aerobic exercise to reduce BP. Initial goal of 30 min walk 3-5x/week. Increase as tolerated. - low-sodium diet (goal: <2g/day) and heart healthy diet such as DASH to reduce BP and prevent ASCVD. - Home BP monitoring 1-2 x day with goal of <140/90. - Seek immediate medical attention for chest pain, palpitations, SOB, syncope, or sudden changes in mental status. 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 03/18/2022 Pain in finger 03/18/2022 Hearing loss 03/18/2022 Migraine without aura, not refractory 03/18/2022 Assessment & Plan (10/12/2022 2:13 PM EDT): I advise to avoid migraine triggers like red wine, chocolate, cheese, strong perfumes I went up on her amitriptyline to 50mg at bed time Mild intermittent asthma 03/18/2022 Mild persistent asthma 03/18/2022 Assessment & Plan (04/25/2023 12:29 PM EST): Patient educated to avoid triggers Albuterol PRN Supplies provided Assessment & Plan (07/26/2022 2:59 PM EDT): C/w albuterol PRN Discontinue flovent instead budesonide/salmeterol Pulmonary referral Obstructive sleep apnea syndrome 03/18/2022 Palpitations 03/18/2022 Prediabetes 03/18/2022 Assessment & Plan (01/18/2024 2:15 PM EDT): Today extensive discussion was done about life style modifications I advise healthy diet (low calorie) and cardiovascular exercise Primary osteoarthritis of both knees 03/18/2022 Primary osteoarthritis of right knee 03/18/2022 Vertigo 03/18/2022 Assessment & Plan (03/26/2024 11:05 AM EST): Likely vertigo exacerbation. Pt has previously prescribed Meclizine, but reports she always sees moving objects that cause her to feel dizzy, despite taking the medication. - Recommended watching [employer] videos fro stretching and exercises that can help. - Referred to PT 03/26/24 Resolved Problems Problem Noted Date Diagnosed Date Resolved Date Cellulitis 11/27/2023 02/20/2024 Rash 07/26/2022 02/20/2024 Nausea and vomiting 07/26/2022 02/20/20 Assessment & Plan (07/26/2022 3:03 PM EDT): zofran and esomeprazole prescribed today if nausea is persistent I advise to go to ED to be re-evalauted to avoid dehydration Elevated blood pressure read ing with diagnosis of hypertension 03/18/2022 02/20/2024 Class 3 severe obesity due t o excess calories with serious comorbidity and body mass index (BMI) of 45.0 to 49.9 in adult 03/18/2022 Assessment & Plan (02/06/2023 11:54 AM EDT): Stationary mini pedal station will be prescribe Today extensive discussion was done about life style modifications I advise healthy diet (low calorie) and cardiovascular exercise Nasal congestion 03/18/2022 02/20/2024 Encounters Date Type Department Care Team Description 07/07/2024 Refill [facility] [address] [facility] [place] [address] Mariana Meyer MD Moderate episode of recurrent major depressive disorder (CMS/HCC); Migraine without aura, not refractory; Chronic toe pain, left foot; HTN (hypertension), benign; Essential hypertension 07/07/2024 Refill [facility] [address] [facility] [place] [address] Chelsi Kauffman MD Essential hypertension 06/27/[address] [facility] [address] [facility] [place] [address] Chelsi Kauffman MD Durable Medical Equipment (DME Request: life alert and grab bars) 06/24/2024 Refill [facility] [address] [facility] [place] [address] Chelsi Kauffman MD Migraine without aura, not refractory 06/21/2024 11:00 AM EDT Office Visit [facility] [address] [facility] [place] [address] Chelsi Kauffman MD Class 3 severe obesity due to excess calories with serious comorbidity and body mass index (BMI) of 40.0 to 44.9 in adult (CMS/HCC) (Primary Dx); Essential hypertension; Chronic bilateral low back pain without sciatica; Unstable gait 06/21/2024 Travel 06/18/2024 9:45 AM EDT Office Visit [facility] [address] [facility] [place] [address] Mackenzie Whatley, MYRIAM Long-term current use of opiate analgesic (Primary Dx); Anterolisthesis of lumbar spine 06/18/2024 Refill [facility] [address] [place] [address] Chelsi Kauffman MD Chronic midline low back pain with right-sided sciatica; Polyarthralgia 06/18/2024 Travel 06/14/2024 Refill [facility] [address] [place] [address] Chelsi Kauffman MD Polyarthralgia 06/13/2024 Patient Outreach [facility] [address] [place] [address] Chelsi Kauffman MD Pre-visit Planning (SDOH screening negative and tobacco screening negative) 06/10/2024 Travel 06/10/2024 Telephone [facility] [address] [place] [id number] Chelsi Kauffman MD [facility] (Attend wipes) 06/06/2024 Refill [facility] [address] [place] [address] Chelsi Kauffman MD Vertigo; Hypertension, unspecified type; Preventative health care 05/31/2024 Orders Only [facility] [address] [place] [address] Chelsi Kauffman MD Nausea (Primary Dx) 05/30/2024 Orders Only [facility] [address] [place] [address] Chelsi Kauffman MD Class 3 severe obesity due to excess calories with serious comorbidity and body mass index (BMI) of 40.0 to 44.9 in adult ([facility]) (Primary Dx) 05/30/2024 Telephone [facility] [address] [place] [address] Chelsi Kauffman MD Nurse Triage 05/30/2024 Refill [facility] [address] [place] [address] Chelsi Kauffman MD 05/29/2024 Refill [facility] [address] [place] [address] Chelsi Kauffman MD Intertrigo 05/28/2024 Refill [facility] [address] [place] [address] Chelsi Kauffman MD Prediabetes 05/22/2024 Refill [facility] [address] [place] [address] Chelsi Kauffman MD Chronic midline low back pain with right-sided sciatica; Polyarthralgia 05/07/2024 Refill [facility] [address] [place] [address] Chelsi Kauffman MD Mild intermittent asthma without complication 05/06/2024 Orders Only [facility] [address] [place] [address] Mariana Meyer MD 05/06/2024 Refill [facility] [address] [place] [address] Chelsi Kauffman MD Mild intermittent asthma without complication; Asthma in adult, moderate persistent, uncomplicated 05/06/2024 Telephone [facility] [address] [place] [address] Chelsi Kauffman MD telephone call 05/05/2024 Refill [facility] [address] [place] [address] Chelsi Kauffman MD Chronic toe pain, left foot; Migraine without aura, not refractory; Moderate episode of recurrent major depressive disorder (CMS/HCC); HTN (hypertension), benign 04/30/2024 Telephone [facility] [address] [place] [address] Chelsi Kauffman MD Prior Authorization ([facility] Request: Saman) 04/26/2024 Orders Only [facility] [address] [place] [address] Christine Laurent MD Benign paroxysmal vertigo, unspecified laterality (Primary Dx) 04/23/2024 9:45 AM EST Office Visit [facility] [address] [place] [address] Phalcece Mackenzie, MASTER BARBER Anterolisthesis of lumbar spine (Primary Dx); halfway (current) use of opiate analgesic; Long-term current use of opiate analgesic 04/23/2024 Telephone [facility] [address] [place] [address] Mackenzie Whatley, MASTER BARBER 04/23/2024 Telephone [facility] [address] [place] [address] Shameka Brantley, TOPHER [employer]ER Renewal today 04/23/2024 Travel 04/18/2024 Refill [facility] [address] [place] [address] Chelsi Kauffman MD Chronic midline low back pain with right-sided sciatica; Polyarthralgia 04/15/2024 Telephone [facility] [address] [place] [address] Chelsi Kauffman MD order from Last 3 Months Immunizations Name Administration Dates Next Due HepB-CpG 09/26/2023,08/15/2023 Influenza Injectable Quadriv alant Preservative Free IIV4 MDCK 01/18/2022 Influenza injectable quadriv alent preservative free 02/06/2023 Influenza, seasonal, injecta ble, preservative free 01/17/2024 Pfizer Covid-19 Vaccine 12+ 02/16/2024,0 11/17/2021,06/02/2021,2020,11/03/2020 Pfizer Covid-19 Vaccine 12+ blair-sucrose (Amaya Cap) 11/17/2021 Pneumococcal Conjugate PCV 20 01/18/2022 Tdap 06/14/2023 Zoster, Recombinant 06/14/2023,01/18/2022 Family History Medical History Relation Name Comments Cancer Father gastric cancer Diabetes Mother Hypertension Mother Relation Name Status Comments Father Mother Social History Tobacco Use Types Packs/Day Years Used Date Smoking Tobacco: Never Passive Smoke Exposure: Never Smokeless Tobacco: Never Tobacco Cessation:Counseling Given: Not Answered Alcohol Use Standard Drinks/Week Comments Never 0 (1 standard drink = 0.6 oz pur e alcohol) Alcohol Answer Date Recorded Frequency of Alcohol Consumption Not on file 02/20/2024 Average Number of Drinks Not on file 024 Frequency of Binge Drinking Not on file 02/08 Score 0 02/20/2024 Depression Answer Date Recorded Patient Health Questionnaire-9 Score 0 01/17/2024 Patient Health Questionnaire-9 Score 0 01/17/2024 Last PHQ-9: Questionnaire Data Not on file 1 Housing Stability Answer Date Recorded What is your housing situation today? I have moni tellez 11/02/[address] you li ve. Do you have problems with any of the following? None of the above 11/02/2023 Food Insecurity Answer Date Recorded Within the past 12 months, y ou worried that your food would run out before you got money to buy more: Never True 06/13/2024 Within the past 12 months,th e food you bought just didn't last and you didn't have enough money to get more: Never True 09/2024 Transportation Answer Date Recorded In the past 12 months, has l ack of transportation kept you from medical appts, meetings, work or from getting things needed for daily living? No 11/02/2023 Utilities Answer Date Recorded In the past 12 months, has t he electric, gas, oil or water company threatened to shut off services in your home? No 01/17/2024 Depression Answer Date Recorded Patient Health Questionnaire-2 Score 0 01/17/2024 Internet Access Answer Date Recorded Internet Access Q1 Yes 12/11/2023 Internet Access Q2 Not on file 12/11/2023 Comments Unknown Sex and Gender Information Value Date Recorded Sex Assigned at Female 02/07/2022 10:35 AM EDT Legal Sex Female 10:35 AM EDT Gender Identity Female 02/07/2022 10:35 AM EDT Sexual Orientation Straight 02/07/2022 10 :35 AM EDT Last Filed Vital Signs Vital Sign Reading Time Taken Comments Blood Pressure 134/75 06/21/2024 11:00 AM EDT Pulse 76 06/21/2024 11:00 AM EDT Temperature 35.9 ??C (96.7 ??F) 06/21/2024 11:00 AM E DT Respiratory Rate 17 06/21/2024 11:00 AM EDT Oxygen Saturation 96% 02/20/2024 11:16 AM EST Inhaled Oxygen Concentration - - Weight 121 kg (267 lb) 06/21/2024 11:00 AM EDT Height 167.6 cm (5' 6 ) 06/21/2024 11:00 AM EDT Body Mass Index 43.09 06/21/2024 11:00 AM EDT Plan of Treatment Upcoming Encounters Date Type Department Care Team (Late st Contact Info) Description 07/16/2024 9:45 AM EDT Office Visit [facility] [address] [place] [address] 08/08/2024 11:00 AM EDT Office Visit [facility] [address] [place] [address] Alireza, Nicole [address] [place] [address] 08/28/2024 9:00 AM EDT Office Visit [facility] [address] [place] [address] Rito, Kennedi, OD [address] [place] [address] 09/23/2024 11:15 AM EDT Office Visit [facility] [address] [place] [address] Chelsi Kauffman MD [address] [place] [address] Health Maintenance Due Date Last Done Comments CT Colonography 1965 FIT DNA/Cologuard 1965 FIT 1965 FOBT 1965 Sigmoidoscopy 1965 Colonoscopy 08/26/2023 08/25/2022, 10/07/2020 Colorectal Cancer Screening 08/26/2023 Dental X-Ray: Bitewings 02/26/2024 02/25/20, 11/23/2021, 09/04/2020, Additional history exists Dental Oral Exam 05/03/2024 10/31/2023, , 11/23/2021, Additional history exists Dental Prophylaxis 05/03/2024 10/31/2023, 1 04/26/2022, 11/23/2021, Additional history exists Depression Screening 01/16/2025 01/17/2024, 01/17/20 Alcohol/Substance Use Screening 02/19/2025 02/20/2024 Mammogram 03/01/2025 03/01/2024, 09/08, 09/23/2021, Additional history exists SDOH Screening 06/13/2025 06/13/2024 Tobacco Screening 06/21/2025 06/21/2024 Diabetes: Hemoglobin A1C 07/10/2025 025, 01/17/2024, 08/19/2022, Additional history exists Dental X-Ray: Full Mouth 02/25/2026 02/24/2023, 09/2018 Cervical Cancer Screening 07/03/2028 HPV/Cotest 07/03/2028 07/04/2023 Pap Smear 07/03/2028 07/04/2023, 07/04/2023 Lipid Panel 07/10/2029 07/10/2024, 08/08, 07/28/2021, Additional history exists DTaP/Tdap/Td Vaccines (2 - Td or Tdap) 06/13/2033 06/14/2023 RSV Patients and Patients Aged 60 years or older (1 - 1-dose 75+ series) 08/01/2039 Pneumococcal Vaccine: 50+ Years Completed 01/18/2022 HIV Screening Completed 12/21/2022, 12/01/2022 Hepatitis C Screening Completed 12/21/2022, 023 Zoster Vaccines Completed 06/14/2023, 01/18/2022 Hepatitis B Vaccines Completed 09/26/2023, 08/15/19 24 Influenza Vaccine Completed 01/17/2024, , 01/18/2022 COVID-19 Vaccine Completed 02/16/2024, 01/2022, 11/17/2021, Additional history exists HIB Vaccines Aged Out No longer eligi ble based on patient's age to complete this topic HPV Vaccines Aged Out No longer eligi ble based on patient's age to complete this topic Hepatitis A Vaccines Aged Out No long er eligible based on patient's age to complete this topic IPV Vaccines Aged Out No longer eligi ble based on patient's age to complete this topic Meningococcal Vaccine Aged Out No preston ani eligible based on patient's age to complete this topic RSV under 20 months Aged Out No longe r eligible based on patient's age to complete this topic Rotavirus Vaccines Aged Out No longer eligible based on patient's age to complete this topic Goals Goal Patient Goal Type Associated Problems Recent Progress Patient-Stated? Author Record your blood pressure once per day Blood Pressure On track( 024 12:41 PM EDT) Alena Dowd Blood Pressure < 140/90 Blood Pressure 134/75(2024 11:00 AM EDT) No Alena Cerda Procedures Procedure Name Priority Date/Time Associated Diagnosis Comments TSH W/REFLEX TO FT4 Routine 07/10/2024 1 2:13 PM EDT Class 3 severe obesity due to excess calories with serious comorbidity and body mass index (BMI) of 40.0 to 44.9 in adult ([facility]) VITAMIN D,25-OH,TOTAL,IA Routine 07/10/2024 12:13 PM EDT Class 3 severe obesity due to excess calories with serious comorbidity and body mass index (BMI) of 40.0 to 44.9 in adult ([facility]) LIPID PANEL, STANDARD Routine 07/10/2024 12:13 PM EDT Class 3 severe obesity due to excess calories with serious comorbidity and body mass index (BMI) of 40.0 to 44.9 in adult ([facility]) Essential hypertension HEMOGLOBIN A1C Routine 07/10/2024 12:13 PM EDT Class 3 severe obesity due to excess calories with serious comorbidity and body mass index (BMI) of 40.0 to 44.9 in adult ([facility]) Essential hypertension COMPREHENSIVE METABOLIC PANEL Routine 07/10/2024 12:13 PM EDT Class 3 severe obesity due to excess calories with serious comorbidity and body mass index (BMI) of 40.0 to 44.9 in adult ([facility]) CBC WITH AUTO DIFFERENTIAL Routine 07/10/2024 12:13 PM EDT Class 3 severe obesity due to excess calories with serious comorbidity and body mass index (BMI) of 40.0 to 44.9 in adult ([facility]) POCT ANIKA-14 URINE DRUG SCREEN Routine 06/18/2024 11:29 AM EDT Long-term current use of opiate analgesic POCT ANIKA-14 URINE DRUG SCREEN Routine 04/23/2024 1:37 PM EST halfway (current) use of opiate analgesic BI MAMMOGRAM SCREENING TOMOSYNTHESIS BILATERAL Routine 03/01/2024 10:20 AM EST Screening mammogram for breast cancer Full PROPHYLAXIS - ADULT Routine 10/31/2023 10:00 AM EDT Teeth missing Dental caries Dental plaque Periodontal disease PERIODIC ORAL EVALUATION - ESTABLISHED PATIENT Routine 10/31/2023 10:00 AM EDT Tipped teeth Teeth missing Dental caries Dental plaque Periodontal disease Encounter for dental examination HPV MRNA E6/E7 REFLEX TO HPV 16, 18/45 Routine 07/04/2023 3:39 PM EDT IMAGE-GUIDED PAP W/AGE BASED SCR,W/CT/NG/TRICH Routine 07/04/2023 3:39 PM EDT Encounter for cervical Pap smear with pelvic exam INTRAORAL - COMPLETE SERIES OF RADIOGRAPHIC IMAGES Routine 02/24/2023 11:00 AM EST Dental calculus Encounter for dental examination Teeth missing HEPATITIS C ANTIBODY Routine 12/21/2022 10:55 AM EDT HIV ANTIBODY/ANTIGEN ([facility]) Routine 12/21/2022 10:55 AM EDT HM COLONOSCOPY Routine 08/25/2022 from Last 3 Months or Most Recently Relevant to Health Maintenance Results * Vitamin D, 25-Hydroxy, Total, Immunoassay (07/10/2024 12:13 PM EDT) Vitamin D 25-OH Total 47.8 >30 ng/mL [facility] Comment: Health Based Reference Values*< 20 ??ng/mL ??Chmtnjxxb23-79 ng/mL ??Insufficient> 30 ??ng/mL ??Sufficient*Todd ALBERT. N Engl J Med. 2007;357:266-280There is no well-established upper level of normal vitamin Dlevels. Some laboratories use 50 ng/mL as an upper limit ofnormal. However, toxicity is patient-dependent and may occurat any level. Careful correlation with the patient'spresentation is necessary and, if there is concern forvitamin D toxicity, treatment should be consideredirrespective of the serum level.Care must be taken in interpreting Vitamin D results fromdifferent laboratories and methodologies. ??Published datademonstrated that results from patients undergoinghemodialysis may show a negative bias when tested withvarious automated 25-OH vitamin D assays when compared toLC- MS/MS.When testing samples from patients whose predominant form ofVitamin D is Vitamin D2, such as patients receiving VitaminD2 supplementation, results that are subtherapeutic shouldbe confirmed with another method such as LC-MS/MS. Blood Venous blood specimen / Unknown 07/10/2024 12:13 PM EDT 07/10/2024 12:13 PM EDT us Chelsi Reece MD LAB BLOOD ORDERABLES Final Result Performing Organization Address [facility]/ZIP Co de Phone Number [facility] [address] [place] [phone] * TSH with Reflex to Free T4 (07/10/2024 12:13 PM EDT) TSH reflex Free T4 0.80 0.32 - 4.0 uIU/mL [facility] Blood Venous blood specimen / Unknown 07/10/2024 12:13 PM EDT 07/10/2024 12:13 PM EDT us Chelsi Reece MD LAB BLOOD ORDERABLES Final Result Performing Organization Address City/[facility]/ZIP Co de Phone Number [facility] [address] [place] [phone] * (ABNORMAL) CBC auto differential (07/10/2024 12:13 PM EDT) White Blood Count 10.7 4.8 - 10.8 X10*3/uL [facility] Red Blood Count 4.91 4.20 - 5.50 X10*6/uL [facility] Hemoglobin 14.0 12.0 - 16.0 g/dl [facility] Hematocrit 43.4 37.0 - 47.0 % [facility] Mean Corpuscular Volume 88.4 80.0 - 98.0 fL [facility] Mean Corpuscular Hemoglobin 28.5 27.0 - 33.0 pg [facility] Mean Corpuscular HGB Conc 32.3 31.0 - 35.0 g/dl [facility] Red Cell Distribution Width 13.7 11.0 - 16.0 % [facility] Platelet Count 268 160 - 400 X10*3/uL [facility] Mean Platelet Volume 11.0 9.4 - 12.3 fL [facility] Neutrophils Percent Auto 73.0 45 - 73 % [facility] Imm Gran Pct Auto 0.3 0.0 - 0.4 % [facility] Lymphocytes Percent Auto 18.3(L) 20 - 40 % [facility] Monocytes Percent Auto 6.8 2 - 11 % [facility] Eosinophils Percent Auto 1.2 0 - 4 % [facility] Basophils Percent Auto 0.4 0 - 2 % [facility] NRBC Pct Auto 0.0 0.0 - 0.2 /100WBC [facility] Neutrophils Absolute Auto 7.8 2.0 - 8.3 x10*3/uL [facility] Imm Gran Abs Auto 0.03 0.00 - 0.03 X10*3/uL [facility] Lymphocytes Absolute Auto 2.0 1.2 - 4.9 X10*3/uL [facility] Monocytes Absolute Auto 0.7 0.1 - 1.2 X10*3/uL [facility] Eosinophils Absolute Auto 0.1 0.0 - 0.4 X10*3/uL [facility] Basophils Absolute Auto 0.0 0.0 - 0.2 X10*3/uL [facility] NRBC Abs Auto 0.000 0.0 - 0.012 X10*3/uL [facility] Blood Venous blood specimen / Unknown 07/10/2024 12:13 PM EDT 07/10/2024 12:13 PM EDT us Chelsi Reece MD LAB BLOOD ORDERABLES Final Result Performing Organization Address City/[facility] Co de Phone Number [facility] [address] [place] [phone] * Hemoglobin A1c (07/10/2024 12:13 PM EDT) Hemoglobin A1c 5.7 <6.0 % [facility] Comment:Hemoglobin A1C Refer ence Range Adults: 4.8 - 6.0 % Non diabetic: < 6.0 % Goal: < 7.0 %Additional Action Suggested: > 8.0 %Note: Hemoglobin A1c results are invalid for patients with abnormal amounts of HbF. Blood transfusions may impact the HbA1c concentration in the patient sample. Estimated Average Glucose 117 mg/dL [facility] Comment:eAG = Estimated ave rage glucose which is %A1C expressed asaverage glucose, using the formula of the U8Y-BofrnncHojkjmm Glucose study (ADAG), Diabetes Care, Vol.31,#8,Nov. 2007 Blood Venous blood specimen / Unknown 07/10/2024 12:13 PM EDT 07/10/2024 12:13 PM EDT us Chelsi Reece MD LAB BLOOD ORDERABLES Final Result Performing Organization Address [facility] Co de Phone Number [facility] [address] [place] [phone] * (ABNORMAL) Lipid Panel, Standard (07/10/2024 12:13 PM EDT) Triglycerides 167(H) <150 mg/dL [facility] Comment:Desirable Triglyceri de: less than 150 mg/dLBorderline High Triglyceride 150-199 mg/dLHigh Triglyceride: 200-499 mg/dLVery High Triglyceride: greater than or equal to 5OO mg/dL Cholesterol 163 <200 mg/dL [facility] Comment:Desirable Cholestero l: less than 200 mg/dLBorderline High Cholesterol: 200-239 mg/dLHigh Cholesterol: greater than 239 mg/dL LDL Cholesterol Calculated 90 <100 mg/dL [facility] Comment:Desirable LDL: less than 100 mg/dLNear Optimal/Above Optimal LDL: 110- 129 mg/dLBorderline High LDL: 130-159 mg/dLHigh LDL: 160-189 mg/dLVery High LDL: greater than or equal to 190 mg/dL HDL Cholesterol 40(L) >40 mg/dL [facility] Comment:Desirable HDL: great er than 40 mg/dL Note: This HDL assay may give artificially low results in patients with liver disease. Blood Venous blood specimen / Unknown 07/10/2024 12:13 PM EDT 07/10/2024 12:13 PM EDT us Chelsi Reece MD LAB BLOOD ORDERABLES Final Result [facility] [address] [place] [phone] * (ABNORMAL) Comprehensive Metabolic Panel (07/10/2024 12:13 PM EDT) Sodium 139 135 - 145 mmol/L [facility] Potassium 4.2 3.3 - 5.1 mmol/L [facility] Chloride 110(H) 96 - 108 mmol/L [facility] Carbon Dioxide 24 22 - 29 mmol/L [facility] Anion Gap 9(L) 12 - 20 [facility] Urea Nitrogen (BUN) 16 9 - 16 mg/dL [facility] Creatinine, Serum 0.73 0.5 - 1.4 mg/dL [facility] Estimated Glomerular Filt Rate >60 [facility] Comment:Chronic Kidney Disea se: Estimated GFR < 60 mL/min/1.72u8Npzscl Kidney Disease: Estimated GFR < 15 mL/min/1.73m2 Glucose 96 60 - 115 mg/dL [facility] Calcium 8.8 8.4 - 10.2 mg/dL [facility] Bilirubin, Total 0.2 0.0 - 1.0 mg/dL [facility] Aspartate Amino Transferase 21 5 - 31 U/L [facility] Alanine Aminotransferase 26 0 - 31 U/L [facility] Total Protein 7.1 6.5 - 8.0 g/dL [facility] Albumin Level 3.8 3.5 - 5.0 g/dL [facility] Alkaline Phosphatase 120(H) 39 - 117 U/L [facility] Blood Venous blood specimen / Unknown 07/10/2024 12:13 PM EDT 07/10/2024 12:13 PM EDT us Chelsi Reece MD LAB BLOOD ORDERABLES Final Result [facility] [address] [place] [address] [phone] * POCT ANIKA-14 Urine Drug Screen (06/18/2024 11:29 AM EDT) Only the most recent of2 resultswithin the time period is included. TCA, Urine Positive Oxycodone Screen, Urine Positive Urine Urine specimen obtained by clean catch procedure / Unknown 06/18/2024 11:29 AM EDT Shameka Nichols, TOPHER - 06/18/2024 11:29 AM EDT UTOX cup Lot#[id number] Exp. 11/27/25 Internal Pass Control Mackenzie Whatley MASTER BARBER POINT OF CARE TEST ENTER/EDIT ORDERABLES Final Result * BI Mammogram Screening Tomosynthesis Bilateral (03/01/2024 10:20 AM EST) Anatomical Region Laterality Modality Breast Bilateral Mammography 03/01/2024 10:2 0 AM EST Narrative 03/12/2024 10:52 AM EST ? [facility] ? [address] ?[place] [address] ? Mammography Report ? Signed ? Patient: Jeovanny Amanda,Araceli ?MR#: [id number] ?? [id number] ? : 1965 ?Acct:[id number] ? Age/Sex: 58 / F ?ADM Date: 03/01/24 ? Loc: HO.MAMMO ? Attending Dr: Chelsi Reece MD ? Ordering Physician: Chelsi Kauffman MD ?Results: ?? 1Negative ? Date of Service: 03/01/24 ?Follow Up: 1 Year From Orig ?? inal Mammogram ? Procedure(s): MM tomosynthesis screening BI ?? Accession Number(s): [id number] ? cc: Chelsi Kauffman MD; Dc Bourne MD ? EXAMINATION: ?? MM SCREENING DIGITAL BREAST TOMOSYNTHESIS, BILATERAL ? CLINICAL INFORMATION: ? Screening. Asymptomatic. ? COMPARISON: ?? Mammography: Comparison is made with available priors ? TECHNIQUE: ?? Digital breast mammography with tomosynthesis is performed in both the ?? craniocaudal and mediolateral oblique views along with computer-aided ?? detection (CAD). ? FINDINGS: ?? There are scattered areas of fibroglandular density (ACR BI-RADS breast ?? composition Category b). ? There are no significant masses, abnormal calcifications, or other ?? abnormalities. ? MM/MM tomosynthesis screening BI ?? IMPRESSION: ?? No mammographic evidence of malignancy. ? ASSESSMENT: ? BI-RADS BI-RADS 1 - Negative ? RECOMMENDATION: ?? Routine annual mammography screening. ? 1 year F/U ? This examination should not preclude the clinical evaluation of a ?? suspicious palpable abnormality. ? This patient's information was entered into a reminder system with a ?? target due date for their next mammogram. ? Electronically signed by: ??Taty Mccartney DO ??03/12/2024 10:49 AM EST ? Dictated By: ?Taty Mccartney DO ? Signed By: ?<Electronically signed by Taty Mccartney, DO in OV> ? 03/12/24 1049 ? DD/ 1020 ? TD/TT: 03/01/24 1045 ? Crm Business Analyst: ? Procedure Note Lis, Image - 03/12/[address] [place] [facility] [address] [place] [address] Mammography Report Signed Patient: Chelsi Connors DMR#: [id number] : 1965Acct:[id number] Age/Sex: 58 / FADM Date: 03/01/24 Loc: HO.MAMMO Attending Dr: Chelsi Reece MD Ordering Physician: Chelsi Kauffman MDResults: 1Negative Date of Service: 03/01/24Follow Up: 1 Year From Orig inal Mammogram Procedure(s): MM tomosynthesis screening BI Accession Number(s): [id number] cc: Chelsi Kauffman MD; Dc Bourne MD EXAMINATION: MM SCREENING DIGITAL BREAST TOMOSYNTHESIS, BILATERAL CLINICAL INFORMATION: Screening. Asymptomatic. COMPARISON: Mammography: Comparison is made with available priors TECHNIQUE: Digital breast mammography with tomosynthesis is performed in both the craniocaudal and mediolateral oblique views along with computer-aided detection (CAD). FINDINGS: There are scattered areas of fibroglandular density (ACR BI-RADS breast composition Category b). There are no significant masses, abnormal calcifications, or other abnormalities. MM/MM tomosynthesis screening BI IMPRESSION: No mammographic evidence of malignancy. ASSESSMENT: BI-RADS BI-RADS 1 - Negative RECOMMENDATION: Routine annual mammography screening. 1 year F/U This examination should not preclude the clinical evaluation of a suspicious palpable abnormality. This patient's information was entered into a reminder system with a target due date for their next mammogram. Electronically signed by: Taty Mccartney DO 03/12/2024 10:49 AM EST RP Dictated By: Taty Mccartney DO Signed By: <Electronically signed by Taty Mccartney DO in OV> 03/12/24 1049 DD/ 1020 TD/TT: 03/01/24 1045 Crm Business Analyst: Chelsi Reece MD IMG BI PROCEDURES Fin al Result * Image-Guided Pap with Age-Based Screening??with CT/NG,??Trichomonas (07/04/2023 3:39 PM EDT) Trichomonas (NAAT) NOT DETECTED NOT DETECTED [facility] Comment:The analytical perfo rmance characteristics of thisassay have been determined by [employer]. Themodifications have not been cleared or approved bythe FDA. This assay has been validated pursuant to theCLIA regulations and is used for clinical purposes.For additional information, please refer tohttp://education.Trustpilot/faq/Trichomonastma(This link is being provided for information/educational purposes only.)THIS TEST WAS PERFORMED AT:[facility] [place] [phone] HANEY MD CTNG Ref Lab NOT DETECTED NOT DETECTED [facility] NG Ref Lab NOT DETECTED NOT DETECTED [facility] Pap Vial Vaginal structure / Unknown 07/04/2023 3:39 PM EDT 07/10/2023 8:55 AM EDT Narrative [facility] - 07/11/2023 8:28 PM EDT Collection Date: [id number]: Vagina us Chelsi Reece MD LAB CYTOLOGY ORDERABL ES Final Result Performing Organization Address [facility]/ZIP Co de Phone Number [facility] [address] [place] [address] [phone] * HPV mRNA E6/E7 w/Reflex to HPV Genotypes 16, 18/45 (07/04/2023 3:39 PM EDT) [facility] HPV nRNA E6/E7 Not Detected Not Detected [facility] Comment:Methodology: Transcr iption-Mediated AmplificationThis assay detects E6/E7 viral messenger RNA (mRNA) from 14high-risk HPV types (16,18,31,33,35,39,45,51,52,56,58,59,66,68).Cervical sources are required for HPV testing.If a vaginal source from a patient who has had atotal hysterectomy with removal of cervix wassubmitted, please contact the testing laboratoryfor alternative testing options.For additional information, please refer tohttp://education.Trustpilot/faq/VHU707s7(This link if provided for information/educational purposes only.)THIS TEST WAS PERFORMED AT:[facility] [place] [phone] HANEY MD HPV mRNA E6/E7 [facility] HPV 16 RNA [facility] HPV 18/45 RNA [facility] 07/04/2023 3:39 PM EDT 07/05/2023 2:00 PM EDT us Chelsi Reece MD LAB CYTOLOGY ORDERABL ES Final Result Performing Organization Address City/[facility]/ZIP Co de Phone Number [facility] [address] [place] [address] [phone] * (ABNORMAL) Hepatitis C Ab (12/21/2022 10:55 AM EDT) Pathologist [facility] Hepatitis C Antibody Reactive( A) Nonreactive [facility] Comment:Presumptive evidence of antibodies to HCV. 12/21/2022 10:5 5 AM EDT 12/21/2022 10:55 AM EDT [facility] External Provider LAB BLO OD ORDERABLES Final Result Performing Organization Address City/[facility]/ZIP Co de Phone Number [facility] [address] [place] [address] [phone] * HIV Ab/Ag ([facility]) (12/21/2022 10:55 AM EDT) HIV AB/AG Nonreactive Nonreactive [facility] Comment:HIV-1 p24 Ag and/or HIV-1/HIV-2 Ab not detected.A test result that is nonreactive does not exclude thepossibility of exposure to or infection with HIV-1 and/orHIV-2. Nonreactive results in this assay for individualswith prior exposure to HIV-1 and/or HIV-2 may be due toantigen and antibody levels that are below the limit ofdetection of this assay.The [employer] HIV Ag/Ab Combo assay result andsupplemental assay results should be interpreted inconjunction with the patient's clinical presentation,history and other laboratory results. If the results areinconsistent with clinical evidence, additional testing issuggested to confirm the result. 12/21/2022 10:5 5 AM EDT 12/21/2022 10:55 AM EDT Generic External Data Provider LAB BLOOD ORDERAB LES Final Result Performing Organization Address City/[facility]/ZIP Co de Phone Number [facility] [address] [place] [address] [phone] * Hm Colonoscopy (08/25/2022) Colonoscopy Normal Normal Narrative Griselda Segal - 08/25/2022 Recommended 1 year follow up due to poor prep Historical Provider HEALTH MAINTENANCE Final Result from Last 3 Months or Most Recently Relevant to Health Maintenance Insurance [facility] * Guarantor: Chelsi Connors Account Type Relation to Patient Date of Phone Billing Address Personal/Family Self [place], [place] Care Teams Chief Psychologist Relationship Specialty Start Date End Date Chelsi Kauffman MD [address] [place] [address] PCP - General Family Medicine 12/20/18
--- OUTSIDE RECORDS SUMMARY | 2024-07-10 14:29 | XMS_ITS | Encounter Summary ---
Author Organization [employer] [facility] Address [address] [place] [address] 7t [place] [address] Care Team Providers Care Glass Finisher Name Role Phone Chelsi Kauffman MD Primary Care Provide r Reason for Visit * Reason Comments Med Refill Encounter Details Date Type Department Care Team (Late st Contact Info) Description 09/18/2022 Refill [facility] MEDICINE [address] [place] [phone] Chelsi Kauffman MD [address] [place] [phone] Asthma in adult, moderate persistent, uncomplicated Social History Tobacco Use Types Packs/Day Years Used Date Smoking Tobacco: Never Passive Smoke Exposure: Never Smokeless Tobacco: Never Depression Answer Date Recorded Patient Health Questionnaire-9 Score 24 07/26/2022 Depression Answer Date Recorded Patient Health Questionnaire-2 [...] Description 07/16/2024 9:45 AM EDT Office Visit [facility] MEDICINE [address] [place], [place] [phone] 08/08/2024 11:00 AM EDT Office Visit [facility] ADULT DENTAL [address] [place], [place] [phone] Nicole Lay [address] [place] [address] 08/28/2024 9:00 AM EDT Office Visit [facility] OPTOMETRY [address] [place] [address] Kennedi Veras, OD [address] [place] [address] 09/23/2024 11:15 AM EDT Office Visit [facility] MEDICINE [address] [place] [address] Chelsi Kauffman MD [address] [place], [place] [phone] documented as of this encounter Visit Diagnoses Diagnosis Asthma in adult, moderate persistent, uncomplicated documented in this encounter Additional Health Concerns Assessment Noted Time PHQ-9 Depression Total Score: 24 07/26/2 023 2:25 PM EDT documented as of this encounter Care Teams Glass Finisher Relationship Specialty Start Date End Date Chelsi Kauffman MD [address] [place], [place] [phone] PCP - General Family Medicine 12/20/18 documented as of this encounter
--- OUTSIDE RECORDS SUMMARY | 2024-07-10 14:29 | XMS_ITS | Encounter Summary ---
Author Organization [employer] Address [address] [facility] 7t [place] [address] Care Team Providers Care Staff Development Educator Name Role Phone Chelsi Kauffman MD Primary Care Provide r Reason for Visit * Reason Comments Med Refill Encounter Details Date Type Department Care Team ([facility] st Contact Info) Description 09/14/2023 Refill [facility] MEDICINE [address] [place], [place] [phone] Chelsi Kauffman MD [address] [place] [address] Polyarthralgia Social History Tobacco Use Types Packs/Day Years Used Date Smoking Tobacco: Never Passive Smoke Exposure: Never Smokeless Tobacco: Never Depression Answer Date Recorded Patient Health Questionnaire-9 Score 0 04/25/2023 Patient Health Questionnaire-9 Score 0 04/25/2023 Last PHQ-9: Questionnaire Data Not on file 0 04/25/2023 Housing Stability Answer Date Recorded What is [...] Date Recorded Patient Health Questionnaire-2 Score 0 04/25/2023 Comments Unknown Sex and Gender Information Value [...] Description 07/16/2024 9:45 AM EDT Office Visit [facility] MEDICINE [address] [place] [address] 08/08/2024 11:00 AM EDT Office Visit [facility] ADULT DENTAL [address] [place] [address] Alireza, Nicole [address] [place] [address] 08/28/2024 9:00 AM EDT Office Visit [facility] OPTOMETRY [address] [place] [address] Rito, Kennedi, OD [address] [place] [address] 09/23/2024 11:15 AM EDT Office Visit [facility] MEDICINE [address] [place] [address] Chelsi Kauffman MD [address] [place] [address] documented as of this encounter Goals Goal Patient Goal Type Associated Problems Recent Progress Patient-Stated? Author Record your blood pressure once per day Blood Pressure On track( 024 12:41 PM EDT) Alena Dowd Blood Pressure < 140/90 Blood Pressure 134/75(2024 11:00 AM EDT) No Alena Cerda documented as of this encounter Visit Diagnoses Diagnosis Polyarthralgia Pain in joint, multiple sites documented in this encounter Additional Health Concerns Assessment Noted Time PHQ-9 Depression Total Score: 0 04/25/19 24 9:30 AM EST documented as of this encounter Care Teams Staff Development Educator Relationship Specialty Start Date End Date Chelsi Kauffman MD [address] [place] [address] PCP - General Family Medicine 12/20/18 documented as of this encounter
--- OUTSIDE RECORDS SUMMARY | 2024-07-10 14:29 | XMS_ITS | Encounter Summary ---
Author Organization [employer] [facility] Address [address] [place] [address] 7 [place] [address] Care Team Providers Care Local Hazmat Driver Name Role Phone Chelsi Kauffman MD Primary Care Provide r Encounter Details Date Type Department Care Team (Latest Contact Info) Description 11/23/2021 Abstract [facility] CONVERSIONS Dental, Provider, DDS Social History Tobacco Use Types Packs/Day Years Used Date Smoking Tobacco: Never Assessed Comments Unknown Sex and Gender Information Value Date Recorded Sex Assigned at Female 02/07/2022 10:35 AM EDT Legal Sex Female 10:35 AM EDT Gender Identity Female 02/07/2022 10:35 AM EDT Sexual Orientation Straight 02/07/2022 10 :35 AM EDT documented as of this encounter Plan of Treatment Upcoming Encounters Date Type Department Care Team ( st Contact Info) Description 07/16/2024 9:45 AM EDT Office Visit [facility] MEDICINE [address] [place] [address] 08/08/2024 11:00 AM EDT Office Visit [facility] ADULT DENTAL [address] [place] [address] Alireza, Nicole [address] [place] [address] 08/28/2024 9:00 AM EDT Office Visit [facility] OPTOMETRY [address] [place] [address] Rito, Kennedi, OD [address] [place] [address] 09/23/2024 11:15 AM EDT Office Visit [facility] MEDICINE [address] [place] [address] Chelsi Kauffman MD [address] [place] [address] documented as of this encounter Visit Diagnoses Not on filedocumented in this encounter Care Teams Local Hazmat Driver Relationship Specialty Start Date End Date Chelsi Kauffman MD [address] [place] [address] PCP - General Family Medicine 12/20/18 documented as of this encounter
--- OUTSIDE RECORDS SUMMARY | 2024-07-10 14:29 | XMS_ITS | Encounter Summary ---
Author Organization [employer] Address [address] [facility] 7t [place] [address] Care Team Providers Care Molder Operator Name Role Phone Chelsi Kauffman MD Primary Care Provide r Reason for Visit * Reason Comments Med Refill Encounter Details Date Type Department Care Team ([facility] st Contact Info) Description 11/10/2023 Refill [facility] MEDICINE [address] [place] [address] Chelsi Kauffman MD [address] [place] [address] Chronic toe pain, left foot Social History Tobacco Use Types Packs/Day Years [...] got money to buy more: Never True 11/02/2023 Within the past 12 months,th e food [...] Description 07/16/2024 9:45 AM EDT Office Visit [facility] MEDICINE [address] [place] [address] 08/08/2024 11:00 AM EDT Office Visit [facility] ADULT DENTAL [address] [place] [address] Alireza, Nicole [address] [place] [address] 08/28/2024 9:00 AM EDT Office Visit [facility] OPTOMETRY [address] [place] [address] Rito, Kennedi, OD [address] [place] [address] 09/23/2024 11:15 AM EDT Office Visit [facility] MEDICINE [address] [place] [address] Chelsi Kauffman MD [address] [place] [address] documented as of this encounter Goals Goal Patient Goal Type Associated Problems Recent Progress Patient-Stated? Author Record your blood pressure once per day Blood Pressure On track( 024 12:41 PM EDT) Alena Dowd Blood Pressure < 140/90 Blood Pressure 134/75(2024 11:00 AM EDT) No Cardaropoli, Carvajal documented as of this encounter Visit Diagnoses Diagnosis Chronic toe pain, left foot documented in this encounter Additional Health Concerns Assessment Noted Time PHQ-9 Depression Total Score: 0 04/25/19 24 9:30 AM EST documented as of this encounter Care Teams Molder Operator Relationship Specialty Start Date End Date Chelsi Kauffman MD [address] [place] [address] PCP - General Family Medicine 12/20/18 documented as of this encounter
--- OUTSIDE RECORDS SUMMARY | 2024-07-10 14:29 | XMS_ITS | Encounter Summary ---
Author Organization [employer] Address [address] [place] [address] [address] [place] [address] Care Team Providers Care Unit Tender Name Role Phone Chelsi Kauffman MD Primary Care Provide r Reason for Visit * Reason Comments Med Refill Encounter Details Date Type Department Care Team (Late st Contact Info) Description 08/29/2022 Refill [facility] CHC MED & PEDS [address] [place] [address] Chelsi Kauffman MD [address] [place] [address] Mild intermittent asthma without complication Social History Tobacco Use Types Packs/Day Years [...] Description 07/16/2024 9:45 AM EDT Office Visit [facility] MEDICINE [address] [place], [place] [phone] 08/08/2024 11:00 AM EDT Office Visit [facility] ADULT DENTAL [address] [place], [place] [phone] Nicole Lay [address] [place] [address] 08/28/2024 9:00 AM EDT Office Visit [facility] OPTOMETRY [address] [place] [address] Kennedi Veras, OD [address] [place] [address] 09/23/2024 11:15 AM EDT Office Visit [facility] MEDICINE [address] [place] [address] Chelsi Kauffman MD [address] [place] [address] documented as of this encounter Visit Diagnoses Diagnosis Mild intermittent asthma without complication documented in this encounter Additional Health Concerns Assessment Noted Time PHQ-9 Depression Total Score: 24 07/26/ 023 2:25 PM EDT documented as of this encounter Care Teams Unit Tender Relationship Specialty Start Date End Date Chelsi Kauffman MD [address] [place], [place] [phone] PCP - General Family Medicine 12/20/18 documented as of this encounter
--- OUTSIDE RECORDS SUMMARY | 2024-07-10 14:29 | XMS_ITS | Encounter Summary ---
Author Organization [employer] Address [address] [facility] 7 [place] [address] Care Team Providers Care Agricultural Produce Sorter Name Role Phone Chelsi Kauffman MD Primary Care Provide r Reason for Referral * Consultation (Routine) - Closed Specialty Diagnoses / Procedures Referred By Contac t Referred To Contact Physical Therapy Diagnoses Benign paroxysmal vertigo, unspecified laterality Christine Laurent MD [address] [place] [phone] Phone: tel: fax: [facility] Physical Therapy [address] [place] [address] Phone: tel: fax: Referral ID Status Reason Start Date Expiration Date V isits Requested Visits Authorized [id number] Closed Specialty Services Required 04/26/2024 04/26/2025 1 1 Encounter Details Date Type Department Care Team (Late st Contact Info) Description 04/26/2024 Orders Only [facility] MEDICINE [address] [place] [phone] Christine Laurent MD [address] [place], [place] [phone] Benign paroxysmal vertigo, unspecified laterality (Primary Dx) Social History Tobacco Use Types Packs/Day Years Used Date Smoking Tobacco: Never Passive Smoke Exposure: Never Smokeless Tobacco: Never Alcohol Use Standard Drinks/Week Comments Never 0 (1 standard drink = 0.6 oz pur e alcohol) Alcohol Answer Date Recorded Frequency of Alcohol Consumption Not on file 02/20/2024 Average Number of Drinks Not on file Frequency of Binge Drinking Not on file [...] before you got money to buy more: Often true 01/17/2024 Within the past 12 months,th e food you bought just didn't last and you didn't have enough money to get more: Often true 12/2023 Transportation Answer Date Recorded In the past [...] Description 07/16/2024 9:45 AM EDT Office Visit [facility] MEDICINE [address] [place] [address] 08/08/2024 11:00 AM EDT Office Visit [facility] ADULT DENTAL [address] [place], [place] [phone] Nicole Lay [address] [place] [address] 08/28/2024 9:00 AM EDT Office Visit [facility] OPTOMETRY [address] [place] [address] Kennedi Veras, OD [address] [place] [address] 09/23/2024 11:15 AM EDT Office Visit [facility] MEDICINE [address] [place] [address] Chelsi Kauffman MD [address] [place], [place] [phone] Scheduled Referrals Name Type Priority Associated Diagnoses Orde r Schedule Referral to Physical Therapy Outpatient Referral Routine Benign paroxysmal vertigo, unspecified laterality Expected: 04/26/2024 (Approximate), Expires: 04/26/2025 documented as of this encounter Goals Goal Patient Goal Type Associated Problems Recent Progress Patient-Stated? Author Record your blood pressure once per day Blood Pressure On track( 024 12:41 PM EDT) No Alena Cerda Blood Pressure < 140/90 Blood Pressure 134/75(2024 11:00 AM EDT) No Alena Cerda documented as of this encounter Visit Diagnoses Diagnosis Benign paroxysmal vertigo, unspecified laterality- Primary documented in this encounter Additional Health Concerns Assessment Noted Time PHQ-9 Depression Total Score: 0 01/17/20 24 11:19 AM EDT documented as of this encounter Care Teams Agricultural Produce Sorter Relationship Specialty Start Date End Date Chelsi Kauffman MD [address] [place], [place] [phone] PCP - General Family Medicine 12/20/18 documented as of this encounter
--- OUTSIDE RECORDS SUMMARY | 2024-07-10 14:29 | XMS_ITS | Encounter Summary ---
Author Organization [employer] Address [address] [facility] 7t [place] [address] Care Team Providers Care High Value Associate Name Role Phone Chelsi Kauffman MD Primary Care Provide r Encounter Details Date Type Department Care Team (Late st Contact Info) Description 01/17/2023 Abstract [facility] MEDICINE [address] [place] [address] Griselda Segal Social History Tobacco Use Types Packs/Day Years Used Date Smoking Tobacco: Never Passive Smoke Exposure: Never Smokeless Tobacco: Never Depression Answer Date Recorded Patient Health Questionnaire-9 Score 24 07/26/2022 Housing Stability Answer Date Recorded What is your housing situation today? I have moni tellez 01/17/[address] you li ve. Do you have problems with any of the following? None of the above 01/17/2023 Food Insecurity Answer Date Recorded Within the past 12 months, y ou worried that your food would run out before you got money to buy more: Never True 01/17/2023 Within the past 12 months,th e food you bought just didn't last and you didn't have enough money to get more: Never True 01/2023 Transportation Answer Date Recorded In the past 12 months, has l ack of transportation kept you from medical appts, meetings, work or from getting things needed for daily living? No 01/17/2023 Utilities Answer Date Recorded In the past 12 months, has t he electric, gas, oil or water company threatened to shut off services in your home? No 01/17/2023 Depression Answer Date Recorded Patient Health Questionnaire-2 [...] Description 07/16/2024 9:45 AM EDT Office Visit [facility] MEDICINE [address] [place] [address] 08/08/2024 11:00 AM EDT Office Visit [facility] ADULT DENTAL [address] [place] [address] Alireza, Nicole [address] [place] [address] 08/28/2024 9:00 AM EDT Office Visit [facility] OPTOMETRY [address] [place] [address] Rito, Kennedi, OD [address] [place] [address] 09/23/2024 11:15 AM EDT Office Visit [facility] MEDICINE [address] [place] [address] Chelsi Kauffman MD [address] [place] [address] documented as of this encounter Procedures Procedure Name Priority Date/Time Associated Diagnosis Comments COLONOSCOPY Routine 08/25/2022 documented in this encounter Results * Hm Colonoscopy (08/25/2022) Colonoscopy Normal Normal Narrative Griselda Segal - 08/25/2022 Recommended 1 year follow up due to poor prep us Historical Provider HEALTH MAINTENANCE Final Result documented in this encounter Visit Diagnoses Not on filedocumented in this encounter Additional Health Concerns Assessment Noted Time PHQ-9 Depression Total Score: 24 023 2:25 PM EDT documented as of this encounter Care Teams High Value Associate Relationship Specialty Start Date End Date Chelsi Kauffman MD [address] [place] [address] PCP - General Family Medicine 12/20/18 documented as of this encounter
--- OUTSIDE RECORDS SUMMARY | 2024-07-10 14:29 | XMS_ITS | Encounter Summary ---
Author Organization [employer] Address [address] [facility] [address] [place] [address] Care Team Providers Care Trackless Trolley Driver Name Role Phone Chelsi Kauffman MD Primary Care Provide r Encounter Details Date Type Department Care Team (Late st Contact Info) Description 05/06/2024 Orders Only [facility] MEDICINE [address] [place], [place] [phone] Mariana Meyer MD [address] [place] [address] Social History Tobacco Use Types Packs/Day Years [...] Description 07/16/2024 9:45 AM EDT Office Visit [facility] MEDICINE [address] [place] [address] 08/08/2024 11:00 AM EDT Office Visit [facility] ADULT DENTAL [address] [place] [address] Alireza, Nicole [address] [place] [address] 08/28/2024 9:00 AM EDT Office Visit [facility] OPTOMETRY [address] [place] [address] Rito, Kennedi, OD [address] [place] [address] 09/23/2024 11:15 AM EDT Office Visit [facility] MEDICINE [address] [place] [address] Chelsi Kauffman MD [address] [place] [address] documented as of this encounter Goals Goal [...] documented as of this encounter Care Teams Trackless Trolley Driver Relationship Specialty Start Date End Date Chelsi Kauffman MD [address] [place] [address] PCP - General Family Medicine 12/20/18 documented as of this encounter
--- OUTSIDE RECORDS SUMMARY | 2024-07-10 14:29 | XMS_ITS | Encounter Summary ---
Author Organization [employer] Address [address] [facility] [address] 7t [place] [address] Care Team Providers Care Automatic Coil Machine Operator Name Role Phone Chelsi Kauffman MD Primary Care Provide r Reason for Visit * Reason Comments Med Refill Encounter Details Date Type Department Care Team (Late st Contact Info) Description 07/07/2024 Refill [facility] MEDICINE [address] [place], [place] [phone] Mariana Meyer MD 230 [place] [address] Moderate episode of recurrent major depressive disorder (CMS/HCC); Migraine without aura, not refractory; Chronic toe pain, left foot; HTN (hypertension), benign; Essential hypertension Social History Tobacco Use Types Packs/Day Years [...] Description 07/16/2024 9:45 AM EDT Office Visit [facility] MEDICINE [address] [place] [address] 08/08/2024 11:00 AM EDT Office Visit [facility] ADULT DENTAL [address] [place] [address] Alireza, Nicole [address] [place] [address] 08/28/2024 9:00 AM EDT Office Visit [facility] OPTOMETRY [address] [place] [address] Kennedi Veras, OD 230 [place] [address] 09/23/2024 11:15 AM EDT Office Visit [facility] MEDICINE [address] [place] [address] Chelsi Kauffman MD [address] [place] [address] documented as of this encounter Goals Goal Patient Goal Type Associated Problems Recent Progress Patient-Stated? Author Record your blood pressure once per day Blood Pressure On track( 12:41 PM EDT) No Alena Cerda Blood Pressure < 140/90 Blood Pressure 134/75(2024 11:00 AM EDT) No Alena Cerda documented as of this encounter Visit Diagnoses Diagnosis Moderate episode of recurrent major depressive disorder (CMS/HCC) Migraine without aura, not refractory Chronic toe pain, left foot HTN (hypertension), benign Essential hypertension, benign Essential hypertension Unspecified essential hypertension documented in this encounter Additional Health Concerns Assessment Noted Time PHQ-9 Depression Total Score: 0 01/17/20 24 11:19 AM EDT documented as of this encounter Care Teams Automatic Coil Machine Operator Relationship Specialty Start Date End Date Chelsi Kauffman MD [address] [place] [address] PCP - General Family Medicine 12/20/18 documented as of this encounter
--- OUTSIDE RECORDS SUMMARY | 2024-07-10 14:29 | XMS_ITS | Encounter Summary ---
Author Organization [employer] [facility] Address [address] [facility] 7t [place] [address] Care Team Providers Care Quality Management Nurse Name Role Phone Chelsi Kauffman MD Primary Care Provide r Reason for Visit * Reason Comments Med Refill Encounter Details Date Type Department Care Team ([facility] st Contact Info) Description 03/08/2023 Refill [facility] MEDICINE [address] [place], [place] [phone] Chelsi Kauffman MD [address] [place], [place] [phone] Migraine without aura, not refractory Social History Tobacco Use Types Packs/Day Years [...] Visit [facility] MEDICINE [address] [place] [address] 08/08/2024 11:00 AM EDT Office Visit [facility] ADULT DENTAL [address] [place] [address] Alireza, Nicole [address] [place] [address] 08/28/2024 9:00 AM EDT Office Visit [facility] OPTOMETRY [address] [place] [address] Rito, Kennedi, OD 230 [place] [address] 09/23/2024 11:15 AM EDT Office Visit [facility] MEDICINE [address] [place] [address] Chelsi Kauffman MD 230 [place] [address] documented as of this encounter Visit Diagnoses Diagnosis Migraine without aura, not refractory documented in this encounter Additional Health Concerns Assessment Noted Time PHQ-9 Depression Total Score: 24 023 2:25 PM EDT documented as of this encounter Care Teams Quality Management Nurse Relationship Specialty Start Date End Date Chelsi Kauffman MD [address] [place] [address] PCP - General Family Medicine 12/20/18 documented as of this encounter
--- OUTSIDE RECORDS SUMMARY | 2024-07-10 14:29 | XMS_ITS | Encounter Summary ---
Author Organization [employer] Address [address] [facility] 7t [place] [address] Care Team Providers Care Brick Machine Operator Name Role Phone Chelsi Kauffman MD Primary Care Provide r Reason for Visit * Reason Onset Date Comments Reschedule 06/13/2023 Encounter Details Date Type Department Care Team ([facility] st Contact Info) Description 06/13/2023 Telephone [facility] MEDICINE 230 [place] [address] Chelsi Kauffman MD 230 [place] [address] Reschedule Social History Tobacco Use Types Packs/Day Years [...] AM EDT documented as of this encounter Miscellaneous Notes * Telephone Encounter - Talisha Mendoza - 06/13/2023 1:42 PM EST Tc from pt requesting to r/s 04/07 Derm appointment. Please contact pt at [phone] documented in this encounter Plan of Treatment Upcoming Encounters Date Type Department Care Team (Late st Contact Info) Description 07/16/2024 9:45 AM EDT Office Visit [facility] MEDICINE [address] [place] [address] 08/08/2024 11:00 AM EDT Office Visit [facility] ADULT DENTAL [address] [place] [address] Alireza, Nicole [address] [place] [address] 08/28/2024 9:00 AM EDT Office Visit [facility] OPTOMETRY [address] [place] [address] Rito, Kennedi, OD 230 [place] [address] 09/23/2024 11:15 AM EDT Office Visit [facility] MEDICINE [address] [place] [address] Chelsi Kauffman MD 230 [place] [address] documented as of this encounter Visit Diagnoses Not on filedocumented in this encounter Additional Health Concerns Assessment Noted Time PHQ-9 Depression Total Score: 0 04/25/19 24 9:30 AM EST documented as of this encounter Care Teams Brick Machine Operator Relationship Specialty Start Date End Date Chelsi Kauffman MD 230 [place] [address] PCP - General Family Medicine 12/20/18 documented as of this encounter
--- OUTSIDE RECORDS SUMMARY | 2024-07-10 14:29 | XMS_ITS | Encounter Summary ---
Author Organization [employer] [facility] Address [address] [place] [address] 7 [place] [address] Care Team Providers Care Flask Fitter Name Role Phone Chelsi Kauffman MD Primary Care Provide r Encounter Details Date Type Department Care Team (Latest Contact Info) Description 09/04/2020 Abstract [facility] CONVERSIONS Dental, Provider, DDS Social History Tobacco [...] Description 07/16/2024 9:45 AM EDT Office Visit [facility] MEDICINE [address] [place] [address] 08/08/2024 11:00 AM EDT Office Visit [facility] ADULT DENTAL [address] [place] [address] Alireza, Nicole [address] [place] [address] 08/28/2024 9:00 AM EDT Office Visit [facility] OPTOMETRY [address] [place] [address] Rito, Kennedi, OD [address] [place] [address] 09/23/2024 11:15 AM EDT Office Visit [facility] MEDICINE [address] [place] [address] Chelsi Kauffman MD [address] [place] [address] documented as of this encounter Visit Diagnoses Not on filedocumented in this encounter Care Teams Flask Fitter Relationship Specialty Start Date End Date Chelsi Kauffman MD [address] [place] [address] PCP - General Family Medicine 12/20/18 documented as of this encounter
--- OUTSIDE RECORDS SUMMARY | 2024-07-10 14:29 | XMS_ITS | Encounter Summary ---
Author Organization [employer] Address [address] [facility] 7t [place] [address] Care Team Providers Care Custom Seamstress Name Role Phone Chelsi Kauffman MD Primary Care Provide r Reason for Visit * Reason Comments Med Refill Encounter Details Date Type Department Care Team (Late st Contact Info) Description 08/24/2022 Refill [facility] MED & PEDS [address] [place] [address] Marinaa Meyer MD [address] [place] [phone] Social History Tobacco Use Types Packs/Day Years [...] Orientation Straight 02/07/2022 10 :35 AM EDT COVID-19 Exposure Response Date Recorded In the last 10 days, have yo sam been in contact with someone who was confirmed or suspected to have Coronavirus/COVID-19? No / Unsure 07/26/2022 2:10 PM EDT documented as of this encounter Plan of Treatment Upcoming Encounters Date Type Department Care Team ([facility] Contact Info) Description 07/16/2024 9:45 AM EDT Office Visit [facility] MEDICINE [address] [place], [place] [phone] 08/08/2024 11:00 AM EDT Office Visit [facility] ADULT DENTAL [address] [place] [address] Alireza, Nicole [address] [place] [address] 08/28/2024 9:00 AM EDT Office Visit [facility] OPTOMETRY [address] [place], [place] [phone] Rito, Kennedi, OD 230 [place] [address] 09/23/2024 11:15 AM EDT Office Visit [facility] MEDICINE [address] [place] [address] Chelsi Kauffman MD [address] [place] [address] documented as of this encounter Visit Diagnoses Not on filedocumented in this encounter Additional Health Concerns Assessment Noted Time PHQ-9 Depression Total Score: 24 023 2:25 PM EDT documented as of this encounter Care Teams Custom Seamstress Relationship Specialty Start Date End Date Chelsi Kauffman MD 230 [place], [place] [phone] PCP - General Family Medicine 12/20/18 documented as of this encounter
--- OUTSIDE RECORDS SUMMARY | 2024-07-10 14:29 | XMS_ITS | Encounter Summary ---
Author Organization [employer] Address [address] [facility] 7t [place] [address] Care Team Providers Care Tax Preparer Name Role Phone Chelsi Kauffman MD Primary Care Provide r Reason for Visit * Reason Comments Med Refill Encounter Details Date Type Department Care Team ([facility] st Contact Info) Description 05/09/2023 Refill [facility] MEDICINE [address] [place], [place] [phone] Chelsi Kauffman MD 230 [place], [place] [phone] Migraine without aura, not refractory Social History [...] Description 07/16/2024 9:45 AM EDT Office Visit [facility] MEDICINE [address] [place] [address] 08/08/2024 11:00 AM EDT Office Visit [facility] ADULT DENTAL [address] [place] [address] Alireza, Nicole [address] [place] [address] 08/28/2024 9:00 AM EDT Office Visit [facility] OPTOMETRY [address] [place] [address] Rito, Kennedi, OD [address] [place] [address] 09/23/2024 11:15 AM EDT Office Visit [facility] MEDICINE [address] [place] [address] Chelsi Kauffman MD [address] [place] [address] documented as of this encounter Visit Diagnoses Diagnosis Migraine without aura, not refractory documented in this encounter Additional Health Concerns Assessment Noted Time PHQ-9 Depression Total Score: 0 04/25/19 24 9:30 AM EST documented as of this encounter Care Teams Tax Preparer Relationship Specialty Start Date End Date Chelsi Kauffman MD [address] [place] [address] PCP - General Family Medicine 12/20/18 documented as of this encounter
--- OUTSIDE RECORDS SUMMARY | 2024-07-10 14:29 | XMS_ITS | Encounter Summary ---
Author Organization [employer] Address [address] [facility] 7t [place] [address] Care Team Providers Care Electronic Train Control Technician Name Role Phone Chelsi Kauffman MD Primary Care Provide r Reason for Visit * Reason Comments Med Refill Encounter Details Date Type Department Care Team ([facility] st Contact Info) Description 07/07/2024 Refill [facility] MEDICINE [address] [place] [address] Chelsi Kauffman MD [address] [place] [address] Essential hypertension Social History Tobacco Use Types [...] EDT Office Visit [facility] MEDICINE [address] [place] [address] 08/08/2024 11:00 AM EDT Office Visit [facility] ADULT DENTAL [address] [place] [address] Alireza, Nicole [address] [place] [address] 08/28/2024 9:00 AM EDT Office Visit [facility] OPTOMETRY [address] [place] [address] Rito, Kennedi, OD 230 [place] [address] 09/23/2024 11:15 AM EDT Office Visit [facility] MEDICINE [address] [place] [address] Chelsi Kauffman MD 230 [place] [address] documented as of this encounter Goals Goal Patient Goal Type Associated Problems Recent Progress Patient-Stated? Author Record your blood pressure once per day Blood Pressure On track( 024 12:41 PM EDT) No Alena Cerda Blood Pressure < 140/90 Blood Pressure 134/75(2024 11:00 AM EDT) No Alena Cerda documented as of this encounter Visit Diagnoses Diagnosis Essential hypertension Unspecified essential hypertension documented in this encounter Additional Health Concerns Assessment Noted Time PHQ-9 Depression Total Score: 0 01/17/20 24 11:19 AM EDT documented as of this encounter Care Teams Electronic Train Control Technician Relationship Specialty Start Date End Date Chelsi Kauffman MD [address] [place] [address] PCP - General Family Medicine 12/20/18 documented as of this encounter
--- OUTSIDE RECORDS SUMMARY | 2024-07-10 14:29 | XMS_ITS | Encounter Summary ---
Author Organization [email or web address] [facility] Address [address] [facility] 7t [place] [address] Care Team Providers Care Automotive Sales Representative Name Role Phone Chelsi Kauffman MD Primary Care Provide r Reason for Visit * Reason Onset Date Comments Durable Medical Equipment 07/28/2022 Encounter Details Date Type Department Care Team ([facility] st Contact Info) Description 07/28/2022 Telephone [facility] MEDICINE [address] [place] [address] Chelsi Kauffman MD [address] [place] [address] Durable Medical Equipment Social History Tobacco Use Types Packs/Day Years [...] PM EDT documented as of this encounter Miscellaneous Notes * Telephone Encounter - Nicole Colon - 07/28/2022 4:11 PM EDT Scripts generated for providers signature * Telephone Encounter - Jw Bell - 07/28/2022 3:54 PM EDT Tc from pt requesting a script for wipes and a small shower chair. documented in this encounter Plan of Treatment Upcoming Encounters Date Type Department Care Team (Late st Contact Info) Description 07/16/2024 9:45 AM EDT Office Visit [facility] MEDICINE [address] [place] [address] 08/08/2024 11:00 AM EDT Office Visit [facility] ADULT DENTAL [address] [place] [address] Alireza, Nicole [address] [place] [address] 08/28/2024 9:00 AM EDT Office Visit [facility] OPTOMETRY [address] [place] [address] Rito, Kennedi, OD 230 [place] [address] 09/23/2024 11:15 AM EDT Office Visit [facility] MEDICINE [address] [place] [address] Chelsi Kauffman MD [address] [place] [address] documented as of this encounter Visit Diagnoses Not on filedocumented in this encounter Additional Health Concerns Assessment Noted Time PHQ-9 Depression Total Score: 24 07/26/ 023 2:25 PM EDT documented as of this encounter Care Teams Automotive Sales Representative Relationship Specialty Start Date End Date Chelsi Kauffman MD [address] [place] [address] PCP - General Family Medicine 12/20/18 documented as of this encounter
--- OUTSIDE RECORDS SUMMARY | 2024-07-10 14:29 | XMS_ITS | Encounter Summary ---
Author Organization [employer] [facility] Address [address] [facility] 7t [place] [address] Care Team Providers Care Bindery Machine Setter/Set Up Operator Name Role Phone Chelsi Kauffman MD Primary Care Provide r Reason for Visit * Reason Onset Date Comments triage 06/09/2022 Encounter Details Date Type Department Care Team ([facility] st Contact Info) Description 06/09/2022 Telephone [facility] MEDICINE [address] [place] [address] Chelsi Kauffman MD [address] [place] [address] triage Social History Tobacco Use Types Packs/Day Years Used Date Smoking Tobacco: Never Assessed Comments Unknown Sex and Gender Information Value Date Recorded Sex Assigned at Female 02/07/2022 10:35 AM EDT Legal Sex Female 10:35 AM EDT Gender Identity Female 02/07/2022 10:35 AM EDT Sexual Orientation Straight 02/07/2022 10 :35 AM EDT COVID-19 Exposure Response Date Recorded In the last 10 days, have shirlene vargas been in contact with someone who was confirmed or suspected to have Coronavirus/COVID-19? No / Unsure 05/20/2022 9:26 AM EST documented as of this encounter Miscellaneous Notes * Telephone Encounter - Carmen Phillips RN - 06/09/2022 12:16 PM EST Triage call with [email or web address] [place] [id number] Pt reports third time with Covid. Covid + test 06/01. Pt continues to have diarrhea several times / day, tactile fevers at night with chills, dizziness, weakness and some anxiety during the day. Pt has a red, bumpy, itchy rash on right hand. Pt is requesting to see provider. Pt agrees with disposition and home care reviewed. Pt apt with Dr. Biggs 06/20 @ 330pm. Protocol Used: COVID-19 - Diagnosed or Suspected (Adult) Protocol-Based Disposition: Discuss with PCP and Callback by Nurse Today Override (Final) Disposition: See in Office or Video Visit within 2 Weeks Override Reason: No appointments available Video visit not offered Positive Triage Question: * Fever present > 3 days (72 hours) * All higher-acuity triage questions were negative Care Advice Discussed: * Reassurance and Education - Positive COVID-19 Lab Test and Mild Symptoms * General Care Advice for COVID-19 Symptoms * Mild Stomach and Intestinal Symptoms During COVID-19 Illness * Reasons To Call Back - Fever over 103 F (39.4 C) - Fever lasts over 3 days - Fever returns after being gone for 24 hours - Chest pain or difficulty breathing occurs - You become worse * Telephone Encounter - Evan Valdivia - 06/09/2022 11:46 AM EST Symptoms: Rash or Redness - Widespread, COVID-19 Suspected Outcome: Schedule an urgent appointment (within 4 hours) or talk to a nurse or provider soon Reason: Fever The caller accepted this outcome Please contact pt at [phone] Solomon Islander Speaker documented in this encounter Plan of Treatment Upcoming Encounters Date Type Department Care Team (Late st Contact Info) Description 07/16/2024 9:45 AM EDT Office Visit [facility] MEDICINE [address] [place] [address] 08/08/2024 11:00 AM EDT Office Visit [facility] ADULT DENTAL [address] [place] [address] Nicole Lay [address] [place] [address] 08/28/2024 9:00 AM EDT Office Visit [facility] OPTOMETRY [address] [place], [place] [phone] Rito, Kennedi, OD 230 [place] [address] 09/23/2024 11:15 AM EDT Office Visit [facility] MEDICINE [address] [place] [address] Chelsi Kauffman MD [address] [place] [address] documented as of this encounter Visit Diagnoses Not on filedocumented in this encounter Care Teams Bindery Machine Setter/Set Up Operator Relationship Specialty Start Date End Date Chelsi Kauffman MD [address] [place], [place] [phone] PCP - General Family Medicine 12/20/18 documented as of this encounter
--- OUTSIDE RECORDS SUMMARY | 2024-07-10 14:29 | XMS_ITS | Encounter Summary ---
Author Organization [employer] Address [address] [facility] 7 [place] [address] Care Team Providers Care Windows Server Support Technician Name Role Phone Chelsi Kauffman MD Primary Care Provide r Reason for Visit * Reason Onset Date Comments Med Refill 05/30/2024 Encounter Details Date Type Department Care Team (Late st Contact Info) Description 05/30/2024 Refill [facility] MEDICINE [address] [place] [address] Chelsi Kauffman MD [address] [place] [address] Social History Tobacco Use Types Packs/Day Years [...] encounter Miscellaneous Notes * Telephone Encounter - Jorge Luis Santacruz - 05/30/2024 2:55 PM EST TC from pt requesting medication refill. Medications needing refill : Tirzepatide-Weight Management (Zepbound) 5 MG/0.5ML solution auto-injector To be sent to: [facility] - [place], [place] - [address] [place] [address] documented in this encounter Plan of Treatment Upcoming Encounters Date Type Department Care Team (Late st Contact Info) Description 07/16/2024 9:45 AM EDT Office Visit [facility] MEDICINE [address] [place] [address] 08/08/2024 11:00 AM EDT Office Visit [facility] ADULT DENTAL [address] [place] [address] Nicole Lay [address] [place] [address] 08/28/2024 9:00 AM EDT Office Visit [facility] OPTOMETRY [address] [place], [place] [phone] Kennedi Veras, OD [address] [place] [address] 09/23/2024 11:15 AM EDT Office Visit [facility] MEDICINE [address] [place] [address] Chelsi Kauffman MD [address] [place], [place] [phone] documented as of this encounter Goals Goal [...] documented as of this encounter Care Teams Windows Server Support Technician Relationship Specialty Start Date End Date Chelsi Kauffman MD [address] [place], [place] [phone] PCP - General Family Medicine 12/20/18 documented as of this encounter
--- OUTSIDE RECORDS SUMMARY | 2024-07-10 14:29 | XMS_ITS | Encounter Summary ---
Author Organization [employer] Address [address] [facility] 7t [place] [address] Care Team Providers Care Translator Deaf Name Role Phone Chelsi Kauffman MD Primary Care Provide r Reason for Visit * Reason Comments Med Refill Encounter Details Date Type Department Care Team ([facility] st Contact Info) Description 05/06/2024 Refill [facility] MEDICINE [address] [place] [address] Chelsi Kauffman MD [address] [place] [address] Mild intermittent asthma without complication; Asthma in adult, moderate persistent, uncomplicated Social [...] the past 12 months, has t he [employer], gas, oil or water company threatened to [...] [facility] MEDICINE [address] [place] [address] 08/08/2024 11:00 AM EDT Office Visit [facility] ADULT DENTAL [address] [place] [address] Nicole Lay [address] [place] [address] 08/28/2024 9:00 AM EDT Office Visit [facility] OPTOMETRY [address] [place] [address] Kennedi Veras, OD [address] [place] [address] 09/23/2024 11:15 AM EDT Office Visit [facility] MEDICINE [address] [place] [address] Chelsi Kauffman MD [address] [place] [address] documented as of this encounter Goals Goal Patient Goal Type Associated Problems Recent Progress Patient-Stated? Author Record your blood pressure once per day Blood Pressure On track( 024 12:41 PM EDT) No Alena Cerda Blood Pressure < 140/90 Blood Pressure 134/75(2024 11:00 AM EDT) No Alena Cerda documented as of this encounter Visit Diagnoses Diagnosis Mild intermittent asthma without complication Asthma in adult, moderate persistent, uncomplicated documented in this encounter Additional Health Concerns Assessment Noted Time PHQ-9 Depression Total Score: 0 01/17/20 24 11:19 AM EDT documented as of this encounter Care Teams Translator Deaf Relationship Specialty Start Date End Date Chelsi Kauffman MD [address] [place] [address] PCP - General Family Medicine 12/20/18 documented as of this encounter
--- OUTSIDE RECORDS SUMMARY | 2024-07-10 14:29 | XMS_ITS | Encounter Summary ---
Author Organization [employer] Address [address] 7t [place] [address] Care Team Providers Care Management Instructor Name Role Phone Chelsi Kauffman MD Primary Care Provide r Encounter Details Date Type Department Care Team ([facility] st Contact Info) Description 03/25/2024 Telephone [facility] MEDICINE [address] [place], [place] [phone] Chelsi Kauffman MD [address] [place] [address] Social History Tobacco Use Types Packs/Day Years [...] Description 07/16/2024 9:45 AM EDT Office Visit [facility] MEDICINE [address] [place] [address] 08/08/2024 11:00 AM EDT Office Visit [facility] ADULT DENTAL [address] [place] [address] Alireza, Nicole [address] [place] [address] 08/28/2024 9:00 AM EDT Office Visit [facility] OPTOMETRY [address] [place] [address] Rito, Kennedi, OD 230 [place] [address] 09/23/2024 11:15 AM EDT Office Visit [facility] MEDICINE [address] [place] [address] Chelsi Kauffman MD [address] [place] [address] documented as of this encounter Goals Goal [...] documented as of this encounter Care Teams Management Instructor Relationship Specialty Start Date End Date Chelsi Kauffman MD [address] [place] [address] PCP - General Family Medicine 12/20/18 documented as of this encounter
== END 2024-07-10 11:55 | disposition home or self-care (01) ==
LOC: HO.LAB 11:54
PROVIDERS: PCP Internal Medicine; Visit Provider Internal Medicine
DX: M70.61 Trochanteric bursitis, right hip (principal); M70.62 Trochanteric bursitis, left hip; M25.512 Pain in left shoulder; M25.511 Pain in right shoulder; E66.813 Obesity, class 3; E66.01 Morbid (severe) obesity due to excess calories; Z68.41 Body mass index [BMI] 40.0-44.9, adult; I10 Essential (primary) hypertension; Z13.1 Encounter for screening for diabetes mellitus
CPT/HCPCS: 20610; 36415; 80053; 80061; 82306; 83036; 84443; 85025; 99212; J1010; J2003

== ENCOUNTER 2024-07-10 12:43 | Outpatient (AMB) | payer OTHER, SELFPAY ==
[2024-07-10 12:59] VITALS: BMI 43.4
--- NOTE | 2024-07-10 12:59 | A.OFFVIS_ITS ---
Vital Signs 07/10/24 12:59 Height 5 ft 6 in Weight 269 lb BMI 43.4 Intake Visit Reasons: Inj-B/L shoulder injections. Last inj. -09/29/23 Intake Note: Chelsi is a 58 year old female who presents today for bilateral shoulder injections. Last injections 09/29/23. Patient reports injections helped and would like to repeat injection today. Allergies No Known Allergies [No Known Allergies*] Allergy (Verified 07/10/24 13:00) Medication List - Last Reconciled 07/10/24 by Jennifer Starks PA-C albuterol sulfate 90 mcg/actuation (Ventolin HFA) 0 mcg inhalation amitriptyline 25 mg PO BEDTIME amlodipine (Norvasc) 10 mg PO DAILY aspirin (Adult Low Dose Aspirin) 81 mg PO DAILY bisacodyl (Dulcolax (bisacodyl)) 10 mg (2 x 5 mg) PO BEDTIME 2 days bisacodyl (Dulcolax (bisacodyl)) 20 mg (4 x 5 mg) PO ONCE 1 day blood-glucose meter ([employer] [place] Lite kit) As directed cholecalciferol (vitamin D3) (Vitamin D3) 50 mcg PO DAILY citalopram (Celexa) 20 mg PO DAILY clonazepam (Klonopin) 0.5 mg PO BEDTIME diclofenac potassium 50 mg PO BID PRN dicyclomine 20 mg PO TID duloxetine (Cymbalta) 60 mg PO DAILY esomeprazole magnesium 40 mg PO BEDTIME famotidine 40 mg PO BEDTIME fexofenadine (Allergy Relief (fexofenadine)) 180 mg PO DAILY PRN fluticasone propion-salmeterol 500-50 mcg/dose 1 ea inhalation BID gabapentin (Neurontin) 600 mg PO BID hydralazine 25 mg PO BID hydrochlorothiazide 25 mg PO DAILY incontinence pad, liner, disp As directed, change every 2-3 hours ipratropium bromide 2 sprays intranasal TID-QID PRN 30 days lancets (TRUEplus Lancets) As directed losartan (Cozaar) 100 mg PO DAILY meclizine (Dramamine (meclizine)) 25 mg PO TID PRN melatonin 3 - 6 mg PO BEDTIME PRN metformin 500 mg PO BID mirabegron ER (Myrbetriq) 50 mg PO QAM oxybutynin chloride ER 10 mg PO DAILY 30 days oxycodone 5 mg PO BID PRN phenazopyridine (Pyridium) 200 mg PO BID 5 days polyethylene glycol 3350 (Miralax) 238 grams PO ONCE 1 day prednisone 40 mg (2 x 20 mg) PO DAILY simethicone (Gas Relief (simethicone)) 180 mg PO QID ubrogepant (Ubrelvy) 50 - 100 mg (0.5 - 1 x 100 mg) PO ONCE PRN 30 days HPI HPI Inj-B/L shoulder injections. Last inj. -09/29/23: Details: 58-year-old female returns to the office today for bilateral shoulder pain. She was last seen in our office in September of 2023 where she had both shoulders injected which provided her with relief for the last 8 months, at least. She complains of worsening pain with overhead reaching and repetitive motion which is limiting her daily activities. 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 Trichomonal infection Screen for STD (sexually transmitted disease) Well woman exam Post covid-19 condition, unspecified TOUSSAINT (dyspnea on exertion) Urge incontinence Overactive bladder Stress incontinence Distal radius fracture, left Fracture of left distal radius Colon cancer screening Abdominal cramping Well woman exam with routine gynecological exam Subcutaneous abscess Cellulitis Urgency incontinence Microscopic hematuria Hx of fracture of wrist Hx of sleep apnea Hx of vertigo COVID GERD (gastroesophageal reflux disease) Pre-diabetes Epigastric pain Abdominal cramping Primary osteoarthritis of knees, bilateral Morbid obesity Osteoarthritis Fibromyalgia Arthritis Hypertension Surgical History History of open reduction and internal fixation (ORIF) procedure Hx of tubal ligation Hx of colonoscopy History of cholecystectomy (~2018) Family History Father Stomach cancer Brother Stomach problems Mother Diabetes Social History Household Members: Family Housing: Apartment Do you presently have visiting nurse or other home services: No Alcohol intake: current Alcohol intake frequency: holidays/special occasions only Comment: SLEEPING Patient Tobacco Use Status: Former Tobacco user Tobacco use type: Cigarette Second Hand Smoke Exposure: No Advance Directives Date on File: 01/28/20 service: No Current occupational status: unemployed Sexual orientation: Straight/Heterosexual Gender identity: Female Review of Systems Const All systems reviewed & are unremarkable except as noted in HPI and below Physical Exam Vital Signs: BMI result Body Mass Index 43.4 Extrem Other: Bilateral shoulder: Normal to inspection. Tenderness over the bicipital groove and along the deltoid region of the shoulder. Forward flexion to 175, external rotation to 90, internal rotation to S1. 5/5 RTC strength. Negative Ray and cross body abduction. NVI. Office Procedures AMB Joint Injection/Aspiration Joint Injection/Aspiration Primary Site: right shoulder Secondary Site: left shoulder Prep: site was prepped using aseptic technique, ethochloride spray was applied and injection warnings given Injected: 80 mg of, DepoMedrol, with 8 mL of, 1% plain lidocaine and in the subcromial space Approach Used: posterolateral Procedure: The patient tolerated the procedure well and there was some relief with the local anesthesia Coding 52163 - Glenohumeral/Tronchanteric Bursa/Intraarticular Procedure code (CPT) selection complete Assessment & Plan Assessment & Plan (1) Rotator cuff impingement syndrome of left shoulder: Code(s): M75.42 - Impingement syndrome of left shoulder Category: Medical (2) Rotator cuff impingement syndrome of right shoulder: Code(s): M75.41 - Impingement syndrome of right shoulder Category: Medical Plan We discussed options today, which include steroid injection. The patient did consent to move forward with the injection, which was tolerated well.? I recommended rest, ice and elevation and OTC antiinflammatories prn for discomfort. If symptoms persist over the next 6-8 weeks, they will contact our office, otherwise, prn Coding Level of Care Code Est Pt Level 3 (59256) Complex EM visit Add On G2211 Diagnoses Rotator cuff impingement syndrome of left shoulder M75.42 Rotator cuff impingement syndrome of right shoulder M75.41 CPT Codes Coding - Joint 7: 49558 - Glenohumeral/Tronchanteric Bursa/Intraarticular ([id number])
--- OUTSIDE RECORDS SUMMARY | 2024-07-10 15:15 | XMS_ITS | Encounter Summary ---
Author Organization [employer] Address [address] 7t [place] [address] Care Team Providers Care Apartment Maintenance Supervisor Name Role Phone Chelsi Kauffman MD Primary Care Provide r Reason for Visit * Reason Comments Med Refill Encounter Details Date Type Department Care Team (Late st Contact Info) Description 07/07/2024 Refill [facility] MEDICINE [address] [place], [place] [phone] Mariana Meyer MD 230 [place] [address] Moderate episode of recurrent major depressive disorder [...] 07/16/2024 9:45 AM EDT Office Visit [facility] MEDICINE [address] [place] [address] 08/08/2024 11:00 AM EDT Office Visit [facility] ADULT DENTAL [address] [place] [address] Alireza, Nicole [address] [place] [address] 08/28/2024 9:00 AM EDT Office Visit [facility] OPTOMETRY [address] [place] [address] Kennedi Veras, OD [address] [place] [address] 09/23/2024 11:15 AM EDT Office Visit [facility] MEDICINE [address] [place] [address] Chelsi Kauffman MD [address] [place] [address] documented as of this encounter Goals Goal [...] documented as of this encounter Care Teams Apartment Maintenance Supervisor Relationship Specialty Start Date End Date Chelsi Kauffman MD [address] [place] [address] PCP - General Family Medicine 12/20/18 documented as of this encounter
--- OUTSIDE RECORDS SUMMARY | 2024-07-10 15:15 | XMS_ITS | Encounter Summary ---
Author Organization [employer] Address [address] 7t [place] [address] Care Team Providers Care Community Chest Officer Name Role Phone Chlesi Kauffman MD Primary Care Provide r Reason for Visit * Reason Comments Med Refill Encounter Details Date Type Department Care Team ([facility] st Contact Info) Description 09/14/2023 Refill [facility] MEDICINE 230 [place], [place] [phone] Chelsi Kauffman MD [address] [place] [address] Polyarthralgia Social History Tobacco Use Types Packs/Day [...] Description 07/16/2024 9:45 AM EDT Office Visit [facility] MEDICINE [address] [place] [address] 08/08/2024 11:00 AM EDT Office Visit [facility] ADULT DENTAL [address] [place] [address] Alireza, Nicole [address] [place] [address] 08/28/2024 9:00 AM EDT Office Visit [facility] OPTOMETRY [address] [place] [address] Rito, Kennedi, OD 230 [place] [address] 09/23/2024 11:15 AM EDT Office Visit [facility] MEDICINE [address] [place] [address] Chelsi Kauffman MD [address] [place] [address] documented as of this encounter Goals Goal [...] documented as of this encounter Care Teams Community Chest Officer Relationship Specialty Start Date End Date Chelsi Kauffman MD [address] [place] [address] PCP - General Family Medicine 12/20/18 documented as of this encounter
--- OUTSIDE RECORDS SUMMARY | 2024-07-10 15:15 | XMS_ITS | Encounter Summary ---
Author Organization [employer] Address [address] [facility] 7t [place] [address] Care Team Providers Care Knockdown Man Name Role Phone Chelsi Kauffman MD Primary Care Provide r Reason for Visit * Reason Comments Med Refill Encounter Details Date Type Department Care Team (Late st Contact Info) Description 08/24/2022 Refill [facility] CHC MED & PEDS [address] [place] [address] Mariana Meyer MD [address] [place] [phone] Social History Tobacco Use Types Packs/Day Years [...] Upcoming Encounters Date Type Department Care Team ([facility] Contact Info) Description 07/16/2024 9:45 AM EDT Office Visit [facility] MEDICINE [address] [place], [place] [phone] 08/08/2024 11:00 AM EDT Office Visit [facility] ADULT DENTAL [address] [place] [address] Alireza, Nicole [address] [place] [address] 08/28/2024 9:00 AM EDT Office Visit [facility] OPTOMETRY [address] [place], [place] [phone] Rito, Kennedi, OD 230 [place] [address] 09/23/2024 11:15 AM EDT Office Visit [facility] MEDICINE [address] [place] [address] Chelsi Kauffman MD 230 [place] [address] documented as of this encounter Visit Diagnoses Not on filedocumented in this encounter Additional Health Concerns Assessment Noted Time PHQ-9 Depression Total Score: 24 023 2:25 PM EDT documented as of this encounter Care Teams Knockdown Man Relationship Specialty Start Date End Date Chelsi Kauffman MD [address] [place], [place] [phone] PCP - General Family Medicine 12/20/18 documented as of this encounter
--- OUTSIDE RECORDS SUMMARY | 2024-07-10 15:15 | XMS_ITS | Encounter Summary ---
Author Organization [employer] [facility] Address [address] [place] [address] 7 [place] [address] Care Team Providers Care Barrel Filler Name Role Phone Chelsi Kauffman MD Primary Care Provide r Encounter Details Date Type Department Care Team (Latest Contact Info) Description 11/23/2021 Abstract [facility] CONVERSIONS Dental, Provider, DDS Social [...] Description 07/16/2024 9:45 AM EDT Office Visit [facility] MEDICINE [address] [place] [address] 08/08/2024 11:00 AM EDT Office Visit [facility] ADULT DENTAL [address] [place] [address] Alireza, Nicole [address] [place] [address] 08/28/2024 9:00 AM EDT Office Visit [facility] OPTOMETRY [address] [place] [address] Rito, Kennedi, OD 230 [place] [address] 09/23/2024 11:15 AM EDT Office Visit [facility] MEDICINE [address] [place] [address] Chelsi Kauffman MD 230 [place] [address] documented as of this encounter Visit Diagnoses Not on filedocumented in this encounter Care Teams Barrel Filler Relationship Specialty Start Date End Date Chelsi Kauffman MD [address] [place] [address] PCP - General Family Medicine 12/20/18 documented as of this encounter
--- OUTSIDE RECORDS SUMMARY | 2024-07-10 15:15 | XMS_ITS | Encounter Summary ---
Author Organization [employer] Address [address] [facility] 7 [place] [address] Care Team Providers Care Supervisor Mold Yard Name Role Phone Chelsi Kauffman MD Primary Care Provide r Reason for Referral * Consultation (Routine) - Closed Specialty Diagnoses / Procedures Referred By Contac t Referred To Contact Physical Therapy Diagnoses Benign paroxysmal vertigo, unspecified laterality Christine Laurent MD [address] [place] [address] Phone: tel: fax: [facility] Physical Therapy [address] [place] [address] Phone: tel: fax: Referral ID Status Reason Start Date Expiration Date V isits Requested Visits Authorized [id number] Closed Specialty Services Required 04/26/2024 04/26/2025 1 1 Encounter Details Date Type Department Care Team (Late st Contact Info) Description 04/26/2024 Orders Only [facility] MEDICINE [address] [place] [phone] Christine Laurent MD [address] [place], [place] [phone] Benign paroxysmal vertigo, unspecified laterality (Primary Dx) [...] 9:45 AM EDT Office Visit [facility] MEDICINE [address] [place] [address] 08/08/2024 11:00 AM EDT Office Visit [facility] ADULT DENTAL [address] [place], [place] [phone] Nicole Lay [address] [place] [address] 08/28/2024 9:00 AM EDT Office Visit [facility] OPTOMETRY [address] [place] [address] Kennedi Veras, OD 230 [place] [address] 09/23/2024 11:15 AM EDT Office Visit [facility] MEDICINE [address] [place] [address] Chelsi Kauffman MD [address] [place], [place] [phone] Scheduled Referrals Name Type Priority Associated Diagnoses [...] documented as of this encounter Care Teams Supervisor Mold Yard Relationship Specialty Start Date End Date Chelsi Kauffman MD [address] [place], [place] [phone] PCP - General Family Medicine 12/20/18 documented as of this encounter
--- OUTSIDE RECORDS SUMMARY | 2024-07-10 15:15 | XMS_ITS | Encounter Summary ---
Author Organization [employer] Address [address] [facility] 7t [place] [address] Care Team Providers Care Vat Overhauler Name Role Phone Chelsi Kauffman MD Primary Care Provide r Reason for Visit * Reason Comments Med Refill Encounter Details Date Type Department Care Team ([facility] st Contact Info) Description 05/09/2023 Refill [facility] MEDICINE [address] [place], [place] [phone] Chelsi Kauffman MD 230 [place], [place] [phone] Migraine without aura, not refractory Social History [...] Description 07/16/2024 9:45 AM EDT Office Visit [facility] MEDICINE [address] [place] [address] 08/08/2024 11:00 AM EDT Office Visit [facility] ADULT DENTAL [address] [place] [address] Alireza, Nicole [address] [place] [address] 08/28/2024 9:00 AM EDT Office Visit [facility] OPTOMETRY [address] [place] [address] Rito, Kennedi, OD [address] [place] [address] 09/23/2024 11:15 AM EDT Office Visit [facility] MEDICINE [address] [place] [address] Chelsi Kauffman MD [address] [place] [address] documented as of this encounter Visit Diagnoses Diagnosis Migraine without aura, not refractory documented in this encounter Additional Health Concerns Assessment Noted Time PHQ-9 Depression Total Score: 0 04/25/19 24 9:30 AM EST documented as of this encounter Care Teams Vat Overhauler Relationship Specialty Start Date End Date Chelsi Kauffman MD [address] [place] [address] PCP - General Family Medicine 12/20/18 documented as of this encounter
--- OUTSIDE RECORDS SUMMARY | 2024-07-10 15:15 | XMS_ITS | Encounter Summary ---
Author Organization [employer] Address [address] [facility] 7t [place] [address] Care Team Providers Care Event Services Manager Name Role Phone Chelsi Kauffman MD Primary Care Provide r Reason for Visit * Reason Onset Date Comments Reschedule 06/13/2023 Encounter Details Date Type Department Care Team ([facility] st Contact Info) Description 06/13/[address] [facility] MEDICINE [address] [place] [address] Chelsi Kauffman MD 230 [place] [address] Reschedule Social History Tobacco Use Types Packs/Day [...] 04/07 Derm appointment. Please contact pt at [phone] documented in this encounter Plan of Treatment Upcoming Encounters Date Type Department Care Team (Late st Contact Info) Description 07/16/2024 9:45 AM EDT Office Visit [facility] MEDICINE 230 [place] [address] 08/08/2024 11:00 AM EDT Office Visit [facility] ADULT DENTAL 230 [place] [address] Alireza, Nicole 230 [place] [address] 08/28/2024 9:00 AM EDT Office Visit [facility] OPTOMETRY [address] [place] [address] Rito, Kennedi, OD 230 [place] [address] 09/23/2024 11:15 AM EDT Office Visit [facility] MEDICINE 230 [place] [address] Chelsi Kauffman MD 230 [place] [address] documented as of this encounter Visit Diagnoses Not on filedocumented in this encounter Additional Health Concerns Assessment Noted Time PHQ-9 Depression Total Score: 0 04/25/19 24 9:30 AM EST documented as of this encounter Care Teams Event Services Manager Relationship Specialty Start Date End Date Chelsi Kauffman MD 230 [place] [address] PCP - General Family Medicine 12/20/18 documented as of this encounter
--- OUTSIDE RECORDS SUMMARY | 2024-07-10 15:15 | XMS_ITS | Encounter Summary ---
Author Organization [employer] [facility] Address [address] [facility] 7t [place] [address] Care Team Providers Care Adult Probation Officer Name Role Phone Chelsi Kauffman MD Primary Care Provide r Reason for Visit * Reason Comments Med Refill Encounter Details Date Type Department Care Team ([facility] st Contact Info) Description 03/16/2023 Refill [facility] MEDICINE 230 [place] [address] Chelsi Kauffman MD 230 [place] [address] Dry eyes Social History Tobacco Use Types [...] t he electric, gas, oil or water [employer] threatened to shut off services in your [...] Description 07/16/2024 9:45 AM EDT Office Visit [facility] MEDICINE [address] [place] [address] 08/08/2024 11:00 AM EDT Office Visit [facility] ADULT DENTAL [address] [place] [address] Alireza, Nicole [address] [place] [address] 08/28/2024 9:00 AM EDT Office Visit [facility] OPTOMETRY [address] [place] [address] Rito, Kennedi, OD 230 [place] [address] 09/23/2024 11:15 AM EDT Office Visit [facility] MEDICINE [address] [place] [address] Chelsi Kauffman MD [address] [place] [address] documented as of this encounter Visit Diagnoses Diagnosis Dry eyes Unspecified tear film insufficiency documented in this encounter Additional Health Concerns Assessment Noted Time PHQ-9 Depression Total Score: 24 023 2:25 PM EDT documented as of this encounter Care Teams Adult Probation Officer Relationship Specialty Start Date End Date Chelsi Kauffman MD 230 [place] [address] PCP - General Family Medicine 12/20/18 documented as of this encounter
--- OUTSIDE RECORDS SUMMARY | 2024-07-10 15:15 | XMS_ITS | Encounter Summary ---
Author Organization [employer] Address [address] [facility] 7t [place] [address] Care Team Providers Care Tie Up Worker Name Role Phone Chelsi Kauffman MD Primary Care Provide r Reason for Visit * Reason Comments Med Refill Encounter Details Date Type Department Care Team ([facility] st Contact Info) Description 11/10/2023 Refill [facility] MEDICINE [address] [place] [address] Chelsi Kauffman MD [address] [place] [address] Chronic toe pain, left foot Social History [...] 9:45 AM EDT Office Visit [facility] MEDICINE [address] [place] [address] 08/08/2024 11:00 AM EDT Office Visit [facility] ADULT DENTAL [address] [place] [address] Alireza, Nicole 230 [place] [address] 08/28/2024 9:00 AM EDT Office Visit [facility] OPTOMETRY [address] [place] [address] Rito, Kennedi, OD 230 [place] [address] 09/23/2024 11:15 AM EDT Office Visit [facility] MEDICINE [address] [place] [address] Chelsi Kauffman MD [address] [place] [address] documented as of this encounter Goals Goal [...] documented as of this encounter Care Teams Tie Up Worker Relationship Specialty Start Date End Date Chelsi Kauffman MD 230 [place] [address] PCP - General Family Medicine 12/20/18 documented as of this encounter
--- OUTSIDE RECORDS SUMMARY | 2024-07-10 15:15 | XMS_ITS | Encounter Summary ---
Author Organization [employer] [facility] Address [address] [place] [address] 7 [place] [address] Care Team Providers Care Shingles Roofer Name Role Phone Chelsi Kauffman MD Primary Care Provide r Encounter Details Date Type Department Care Team (Latest Contact Info) Description 09/04/2020 Abstract [facility] CONVERSIONS Dental, Provider, DDS Social [...] 9:45 AM EDT Office Visit [facility] MEDICINE [address] [place] [address] 08/08/2024 11:00 AM EDT Office Visit [facility] ADULT DENTAL [address] [place] [address] Alireza, Nicole [address] [place] [address] 08/28/2024 9:00 AM EDT Office Visit [facility] OPTOMETRY [address] [place] [address] Rito, Kennedi, OD 230 [place] [address] 09/23/2024 11:15 AM EDT Office Visit [facility] MEDICINE [address] [place] [address] Chelsi Kauffman MD 230 [place] [address] documented as of this encounter Visit Diagnoses Not on filedocumented in this encounter Care Teams Shingles Roofer Relationship Specialty Start Date End Date Chelsi Kauffman MD [address] [place] [address] PCP - General Family Medicine 12/20/18 documented as of this encounter
--- OUTSIDE RECORDS SUMMARY | 2024-07-10 15:15 | XMS_ITS | Encounter Summary ---
Author Organization [employer] Address [address] [place] [address] 7t [place] [address] Care Team Providers Care Manufacturing Plant Manager Name Role Phone Chelsi Kauffman MD Primary Care Provide r Reason for Visit * Reason Comments Med Refill Encounter Details Date Type Department Care Team (Late st Contact Info) Description 08/29/2022 Refill [facility] CHC MED & PEDS [address] [place] [address] Chelsi Kauffman MD [address] [place] [address] Mild intermittent asthma without complication Social History [...] Description 07/16/2024 9:45 AM EDT Office Visit [facility] MEDICINE [address] [place], [place] [phone] 08/08/2024 11:00 AM EDT Office Visit [facility] ADULT DENTAL [address] [place], [place] [phone] Nicole Lay [address] [place] [address] 08/28/2024 9:00 AM EDT Office Visit [facility] OPTOMETRY [address] [place] [address] Kennedi Veras, OD 230 [place] [address] 09/23/2024 11:15 AM EDT Office Visit [facility] MEDICINE [address] [place] [address] Chelsi Kauffman MD [address] [place] [address] documented as of this encounter Visit Diagnoses Diagnosis Mild intermittent asthma without complication documented in this encounter Additional Health Concerns Assessment Noted Time PHQ-9 Depression Total Score: 24 07/26/ 023 2:25 PM EDT documented as of this encounter Care Teams Manufacturing Plant Manager Relationship Specialty Start Date End Date Chelsi Kauffman MD [address] [place], [place] [phone] PCP - General Family Medicine 12/20/18 documented as of this encounter
--- OUTSIDE RECORDS SUMMARY | 2024-07-10 15:15 | XMS_ITS | Encounter Summary ---
Author Organization [employer] Address [address] [facility] 7t [place] [address] Care Team Providers Care Supervisor Newspaper Deliveries Name Role Phone Chelsi Kauffman MD Primary Care Provide r Reason for Visit * Reason Comments Med Refill Encounter Details Date Type Department Care Team ([facility] st Contact Info) Description 07/07/2024 Refill [facility] MEDICINE [address] [place] [address] Chelsi Kauffman MD [address] [place] [address] Essential hypertension Social History Tobacco Use Types [...] Description 07/16/2024 9:45 AM EDT Office Visit [facility] MEDICINE [address] [place] [address] 08/08/2024 11:00 AM EDT Office Visit [facility] ADULT DENTAL [address] [place] [address] Alireza, Nicole [address] [place] [address] 08/28/2024 9:00 AM EDT Office Visit [facility] OPTOMETRY [address] [place] [address] Rito, Kennedi, OD [address] [place] [address] 09/23/2024 11:15 AM EDT Office Visit [facility] MEDICINE [address] [place] [address] Chelsi Kauffman MD [address] [place] [address] documented as of this encounter Goals Goal [...] as of this encounter Care Teams Supervisor Newspaper Deliveries Relationship Specialty Start Date End Date Chelsi Kauffman MD [address] [place] [address] PCP - General Family Medicine 12/20/18 documented as of this encounter
--- OUTSIDE RECORDS SUMMARY | 2024-07-10 15:15 | XMS_ITS | Clinical Summary ---
Author Organization [employer] Address [address] [facility] 7t [place] [address] Care Team Providers Care Gas Meter Installer Helper Name Role Phone Chelsi Kauffman MD Primary [...] mL 1 Active Blood Glucose Monitoring Suppl ([employer] [place] Lite) w/Device kitIndications:P rediabetes Use to test [...] (BMI) of 40.0 to 44.9 in adult ([facility]) Inject 0.5 mL (10 mg) under the [...] lumbar anterolisthesis Rx: oxycodone 5mg BID Last ENERGY SCHEDULER agreement: 04/23/24 Tier: III (Q4-6 months), Dr. 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 - Recommended watching Bubblube videos fro stretching and exercises that can [...] Type Department Care Team Description 07/07/2024 Refill [facility] [address] [place] [address] Mariana Meyer MD Moderate episode of recurrent major depressive disorder (CMS/HCC); Migraine without aura, not refractory; Chronic toe pain, left foot; HTN (hypertension), benign; Essential hypertension 07/07/2024 Refill [facility] [address] [place] [address] Chelsi Kauffman MD Essential hypertension 06/27/2024 Telephone [facility] [address] [place] [address] Chelsi Kauffman MD Durable Medical Equipment (DME Request: life alert and grab bars) 06/24/2024 Refill [facility] [address] [place] [address] Chelsi Kauffman MD Migraine without aura, not refractory 06/21/2024 11:00 AM EDT Office Visit [facility] [address] [place] [address] Chelsi Kauffman MD Class 3 severe obesity due to excess calories with serious comorbidity and body mass index (BMI) of 40.0 to 44.9 in adult (CMS/HCC) (Primary Dx); Essential hypertension; Chronic bilateral low back pain without sciatica; Unstable gait 06/21/2024 Travel 06/18/2024 9:45 AM EDT Office Visit [facility] [address] [place] [address] Mackenzie Whatley, MYRIAM Long-term current use of opiate analgesic (Primary Dx); Anterolisthesis of lumbar spine 06/18/2024 Refill [facility] [address] [place] [address] Chelsi Kauffman MD Chronic midline low back pain with right-sided sciatica; Polyarthralgia 06/18/2024 Travel 06/14/2024 Refill [facility] [address] [place] [address] Chelsi Kauffman MD Polyarthralgia 06/13/2024 Patient Outreach [facility] [address] [place] [address] Chelsi Kauffman MD Pre-visit Planning (SDOH screening negative and tobacco screening negative) 06/10/2024 Travel 06/10/2024 Telephone [facility] [address] [place] [phone] Chelsi Kauffman MD [facility] (Attend wipes) 06/06/2024 Refill [facility] [address] [place] [address] Chelsi Kauffman MD Vertigo; Hypertension, unspecified type; Preventative health care 05/31/2024 Orders Only [facility] [address] [place] [address] Chelsi Kauffman MD Nausea (Primary Dx) 05/30/2024 Orders Only [facility] [address] [place] [address] Chelsi Kauffman MD Class 3 severe obesity due to excess calories with serious comorbidity and body mass index (BMI) of 40.0 to 44.9 in adult ([facility]) (Primary Dx) 05/30/2024 Telephone [facility] [address] [place] [address] Chelsi Kauffman MD Nurse Triage 05/30/2024 Refill [facility] [address] [place] [address] Chelsi Kauffman MD 05/29/2024 Refill [facility] [address] [place] [address] Chelsi Kauffman MD Intertrigo 05/28/2024 Refill [facility] [address] [place] [address] Chelsi Kauffman MD Prediabetes 05/22/2024 Refill [facility] [address] [place] [address] Chelsi Kauffman MD Chronic midline low back pain with right-sided sciatica; Polyarthralgia 05/07/2024 Refill [facility] [address] [place] [address] Chelsi Kauffman MD Mild intermittent asthma without complication 05/06/2024 Orders Only [facility] [address] [place] [address] Mariana Meyer MD 05/06/2024 Refill [facility] [address] [place] [address] Chelsi Kauffman MD Mild intermittent asthma without complication; Asthma in adult, moderate persistent, uncomplicated 05/06/2024 Telephone [facility] [address] [place] [address] Chelsi Kauffman MD telephone call 05/05/2024 Refill [facility] [address] [place] [address] Chelsi Kauffman MD Chronic toe pain, left foot; Migraine without aura, not refractory; Moderate episode of recurrent major depressive disorder (CMS/HCC); HTN (hypertension), benign 04/30/2024 Telephone [facility] [address] [place] [address] Chelsi Kauffman MD Prior Authorization ([facility] Request: Saman) 04/26/2024 Orders Only [facility] [address] [place] [address] Christine Laurent MD Benign paroxysmal vertigo, unspecified laterality (Primary Dx) 04/23/2024 9:45 AM EST Office Visit [facility] [address] [place] [address] Phalcece Mackenzie, FILTER PRESS SUPERVISOR Anterolisthesis of lumbar spine (Primary Dx); long-term (current) use of opiate analgesic; Long-term current use of opiate analgesic 04/23/2024 Telephone [facility] [address] [place] [address] Mackenzie Whatley, FILTER PRESS SUPERVISOR 04/23/2024 Telephone [facility] [address] [place] [address] Shameka Brantley, TOPHER ENERGY SCHEDULER Renewal today 04/23/2024 Travel 04/18/2024 Refill [facility] [address] [place] [address] Chelsi Kauffman MD Chronic midline low back pain with right-sided sciatica; Polyarthralgia 04/15/2024 Telephone [facility] [address] [place] [address] Chelsi Kauffman MD order from Last 3 [...] Description 07/16/2024 9:45 AM EDT Office Visit [facility] [address] [place] [address] 08/08/2024 11:00 AM EDT Office Visit [facility] [address] [place] [address] Alireza, Nicole [address] [place] [address] 08/28/2024 9:00 AM EDT Office Visit [facility] [address] [place] [address] Rito, Kennedi, OD [address] [place] [address] 09/23/2024 11:15 AM EDT Office Visit [facility] [address] [place] [address] Chelsi Kauffman MD [address] [place] [address] Health Maintenance Due Date Last Done Comments [...] (BMI) of 40.0 to 44.9 in adult ([facility]) VITAMIN D,25-OH,TOTAL,IA Routine 07/10/2024 12:13 PM EDT Class 3 severe obesity due to excess calories with serious comorbidity and body mass index (BMI) of 40.0 to 44.9 in adult ([facility]) LIPID PANEL, STANDARD Routine 07/10/2024 12:13 PM EDT Class 3 severe obesity due to excess calories with serious comorbidity and body mass index (BMI) of 40.0 to 44.9 in adult ([facility]) Essential hypertension HEMOGLOBIN A1C Routine 07/10/2024 12:13 PM EDT Class 3 severe obesity due to excess calories with serious comorbidity and body mass index (BMI) of 40.0 to 44.9 in adult ([facility]) Essential hypertension COMPREHENSIVE METABOLIC PANEL Routine 07/10/2024 12:13 PM EDT Class 3 severe obesity due to excess calories with serious comorbidity and body mass index (BMI) of 40.0 to 44.9 in adult ([facility]) CBC WITH AUTO DIFFERENTIAL Routine 07/10/2024 12:13 PM EDT Class 3 severe obesity due to excess calories with serious comorbidity and body mass index (BMI) of 40.0 to 44.9 in adult ([facility]) POCT ANIKA-14 URINE DRUG SCREEN Routine 06/18/2024 11:29 AM EDT Long-term current use of opiate analgesic POCT ANIKA-14 URINE DRUG SCREEN Routine 04/23/2024 1:37 PM EST long-term (current) use of opiate analgesic BI MAMMOGRAM [...] Vitamin D 25-OH Total 47.8 >30 ng/mL [facility] Comment: Health Based Reference Values*< 20 ??ng/mL ??Qriivthwe89-43 ng/mL ??Insufficient> 30 ??ng/mL ??Sufficient*Todd ALBERT. N [...] BLOOD ORDERABLES Final Result Performing Organization Address [facility]/ZIP Co de Phone Number [facility] [address] [place] [phone] * TSH with Reflex to Free T4 (07/10/2024 12:13 PM EDT) TSH reflex Free T4 0.80 0.32 - 4.0 uIU/mL [facility] Blood Venous blood specimen / Unknown 07/10/2024 12:13 PM EDT 07/10/2024 12:13 PM EDT us Chelsi Reece MD LAB BLOOD ORDERABLES Final Result Performing Organization Address City/[facility]/ZIP Co de Phone Number [facility] [address] [place] [phone] * (ABNORMAL) CBC auto differential (07/10/2024 12:13 PM EDT) White Blood Count 10.7 4.8 - 10.8 X10*3/uL [facility] Red Blood Count 4.91 4.20 - 5.50 X10*6/uL [facility] Hemoglobin 14.0 12.0 - 16.0 g/dl [facility] Hematocrit 43.4 37.0 - 47.0 % [facility] Mean Corpuscular Volume 88.4 80.0 - 98.0 fL [facility] Mean Corpuscular Hemoglobin 28.5 27.0 - 33.0 pg [facility] Mean Corpuscular HGB Conc 32.3 31.0 - 35.0 g/dl [facility] Red Cell Distribution Width 13.7 11.0 - 16.0 % [facility] Platelet Count 268 160 - 400 X10*3/uL [facility] Mean Platelet Volume 11.0 9.4 - 12.3 fL [facility] Neutrophils Percent Auto 73.0 45 - 73 % [facility] Imm Gran Pct Auto 0.3 0.0 - 0.4 % [facility] Lymphocytes Percent Auto 18.3(L) 20 - 40 % [facility] Monocytes Percent Auto 6.8 2 - 11 % [facility] Eosinophils Percent Auto 1.2 0 - 4 % [facility] Basophils Percent Auto 0.4 0 - 2 % [facility] NRBC Pct Auto 0.0 0.0 - 0.2 /100WBC [facility] Neutrophils Absolute Auto 7.8 2.0 - 8.3 x10*3/uL [facility] Imm Gran Abs Auto 0.03 0.00 - 0.03 X10*3/uL [facility] Lymphocytes Absolute Auto 2.0 1.2 - 4.9 X10*3/uL [facility] Monocytes Absolute Auto 0.7 0.1 - 1.2 X10*3/uL [facility] Eosinophils Absolute Auto 0.1 0.0 - 0.4 X10*3/uL [facility] Basophils Absolute Auto 0.0 0.0 - 0.2 X10*3/uL [facility] NRBC Abs Auto 0.000 0.0 - 0.012 X10*3/uL [facility] Blood Venous blood specimen / Unknown 07/10/2024 12:13 PM EDT 07/10/2024 12:13 PM EDT us Chelsi Reece MD LAB BLOOD ORDERABLES Final Result Performing Organization Address City/[facility] Co de Phone Number [facility] [address] [place] [phone] * Hemoglobin A1c (07/10/2024 12:13 PM EDT) Hemoglobin A1c 5.7 <6.0 % [facility] Comment:Hemoglobin A1C Refer ence Range Adults: 4.8 - 6.0 % Non diabetic: < 6.0 % Goal: < 7.0 %Additional Action Suggested: > 8.0 %Note: Hemoglobin A1c results are invalid for patients with abnormal amounts of HbF. Blood transfusions may impact the HbA1c concentration in the patient sample. Estimated Average Glucose 117 mg/dL [facility] Comment:eAG = Estimated ave rage glucose which is %A1C expressed asaverage glucose, using the formula of the D8A-ScxhnzvFjrkrdd Glucose study (ADAG), Diabetes Care, Vol.31,#8,Nov. 2007 Blood Venous blood specimen / Unknown 07/10/2024 12:13 PM EDT 07/10/2024 12:13 PM EDT us Chelsi Reece MD LAB BLOOD ORDERABLES Final Result Performing Organization Address [facility] Co de Phone Number [facility] [address] [place] [phone] * (ABNORMAL) Lipid Panel, Standard (07/10/2024 12:13 PM EDT) Triglycerides 167(H) <150 mg/dL [facility] Comment:Desirable Triglyceri de: less than 150 mg/dLBorderline High Triglyceride 150-199 mg/dLHigh Triglyceride: 200-499 mg/dLVery High Triglyceride: greater than or equal to 5OO mg/dL Cholesterol 163 <200 mg/dL [facility] Comment:Desirable Cholestero l: less than 200 mg/dLBorderline High Cholesterol: 200-239 mg/dLHigh Cholesterol: greater than 239 mg/dL LDL Cholesterol Calculated 90 <100 mg/dL [facility] Comment:Desirable LDL: less than 100 mg/dLNear Optimal/Above Optimal LDL: 110- 129 mg/dLBorderline High LDL: 130-159 mg/dLHigh LDL: 160-189 mg/dLVery High LDL: greater than or equal to 190 mg/dL HDL Cholesterol 40(L) >40 mg/dL [facility] Comment:Desirable HDL: great er than 40 mg/dL Note: This HDL assay may give artificially low results in patients with liver disease. Blood Venous blood specimen / Unknown 07/10/2024 12:13 PM EDT 07/10/2024 12:13 PM EDT us Chelsi Reece MD LAB BLOOD ORDERABLES Final Result [facility] [address] [place] [phone] * (ABNORMAL) Comprehensive Metabolic Panel (07/10/2024 12:13 PM EDT) Sodium 139 135 - 145 mmol/L [facility] Potassium 4.2 3.3 - 5.1 mmol/L [facility] Chloride 110(H) 96 - 108 mmol/L [facility] Carbon Dioxide 24 22 - 29 mmol/L [facility] Anion Gap 9(L) 12 - 20 [facility] Urea Nitrogen (BUN) 16 9 - 16 mg/dL [facility] Creatinine, Serum 0.73 0.5 - 1.4 mg/dL [facility] Estimated Glomerular Filt Rate >60 [facility] Comment:Chronic Kidney Disea se: Estimated GFR < 60 mL/min/1.98j3Itifjt Kidney Disease: Estimated GFR < 15 mL/min/1.73m2 Glucose 96 60 - 115 mg/dL [facility] Calcium 8.8 8.4 - 10.2 mg/dL [facility] Bilirubin, Total 0.2 0.0 - 1.0 mg/dL [facility] Aspartate Amino Transferase 21 5 - 31 U/L [facility] Alanine Aminotransferase 26 0 - 31 U/L [facility] Total Protein 7.1 6.5 - 8.0 g/dL [facility] Albumin Level 3.8 3.5 - 5.0 g/dL [facility] Alkaline Phosphatase 120(H) 39 - 117 U/L [facility] Blood Venous blood specimen / Unknown 07/10/2024 12:13 PM EDT 07/10/2024 12:13 PM EDT us Chelsi Reece MD LAB BLOOD ORDERABLES Final Result [facility] [address] [place] [address] [phone] * POCT ANIKA-14 Urine Drug Screen (06/18/2024 11:29 AM EDT) Only the most recent of2 resultswithin the time period is included. TCA, Urine Positive Oxycodone Screen, Urine Positive Urine Urine specimen obtained by clean catch procedure / Unknown 06/18/2024 11:29 AM EDT Shameka Nichols, TOPHER - 06/18/2024 11:29 AM EDT UTOX cup Lot#[id number] Exp. 11/27/25 Internal Pass Control Mackenzie Whatley FILTER PRESS SUPERVISOR POINT OF CARE TEST ENTER/EDIT ORDERABLES Final Result * BI Mammogram Screening Tomosynthesis Bilateral (03/01/2024 10:20 AM EST) Anatomical Region Laterality Modality Breast Bilateral Mammography 03/01/2024 10:2 0 AM EST Narrative 03/12/2024 10:52 AM EST ? [facility] ? [address] ?[place] [address] ? Mammography Report ? Signed ? Patient: Jeovanny Amanda,Araceli ?MR#: [id number] ?? [id number] ? : 1965 ?Acct:[id number] ? Age/Sex: 58 / F ?ADM Date: 03/01/24 ? Loc: HO.MAMMO ? Attending Dr: Chelsi Reece MD ? Ordering Physician: Chelsi Kauffamn MD ?Results: ?? 1Negative ? Date of Service: 03/01/24 ?Follow Up: 1 Year From Orig ?? inal Mammogram ? Procedure(s): MM tomosynthesis screening BI ?? Accession Number(s): [id number] ? cc: Chelsi Kauffman MD; Dc Bourne [...] DD/ 1020 ? TD/TT: 03/01/24 1045 ? Ceramic Painter: ? Procedure Note Lis, Image - 03/12/2024 [place] [facility] [address] [place] [address] Mammography Report Signed Patient: Chelsi Connors DMR#: [id number] : 1965Acct:[id number] Age/Sex: 58 / FADM Date: 03/01/24 Loc: HO.MAMMO Attending Dr: Chelsi Reece MD Ordering Physician: Chelsi Kauffman MDResults: 1Negative Date of Service: 03/01/24Follow Up: 1 Year From Orig inal Mammogram Procedure(s): MM tomosynthesis screening BI Accession Number(s): [id number] cc: Chelsi Kauffman MD; Dc Bourne MD [...] 03/12/24 1049 DD/ 1020 TD/TT: 03/01/24 1045 Ceramic Painter: Chelsi Reece MD IMG BI PROCEDURES Fin al Result * Image-Guided Pap with Age-Based Screening??with CT/NG,??Trichomonas (07/04/2023 3:39 PM EDT) Trichomonas (NAAT) NOT DETECTED NOT DETECTED [facility] Comment:The analytical perfo rmance characteristics of thisassay have been determined by [employer]. Themodifications have not been cleared or approved bythe FDA. This assay has been validated pursuant to theCLIA regulations and is used for clinical purposes.For additional information, please refer tohttp://education.[employer]/faq/Trichomonastma(This link is being provided for information/educational purposes only.)THIS TEST WAS PERFORMED AT:[facility] [place] [phone] HANEY MD CTNG Ref Lab NOT DETECTED NOT DETECTED [facility] NG Ref Lab NOT DETECTED NOT DETECTED [facility] Pap Vial Vaginal structure / Unknown 07/04/2023 3:39 PM EDT 07/10/2023 8:55 AM EDT Narrative [facility] - 07/11/2023 8:28 PM EDT Collection Date: [id number]: Vagina us Chelsi Reece MD LAB CYTOLOGY ORDERABL ES Final Result Performing Organization Address [facility]/ZIP Co de Phone Number [facility] [address] [place] [phone] * HPV mRNA E6/E7 w/Reflex to HPV Genotypes 16, 18/45 (07/04/2023 3:39 PM EDT) [facility] HPV nRNA E6/E7 Not Detected Not Detected [facility] Comment:Methodology: Transcr iption-Mediated AmplificationThis assay detects E6/E7 viral messenger RNA (mRNA) from 14high-risk HPV types (16,18,31,33,35,39,45,51,52,56,58,59,66,68).Cervical sources are required for HPV testing.If a vaginal source from a patient who has had atotal hysterectomy with removal of cervix wassubmitted, please contact the testing laboratoryfor alternative testing options.For additional information, please refer tohttp://education.[employer]/faq/JII804f5(This link if provided for information/educational purposes only.)THIS TEST WAS PERFORMED AT:[facility] [place] [phone] HANEY MD HPV mRNA E6/E7 [facility] HPV 16 RNA [facility] HPV 18/45 RNA [facility] 07/04/2023 3:39 PM EDT 07/05/2023 2:00 PM EDT us Chelsi Reece MD LAB CYTOLOGY ORDERABL ES Final Result Performing Organization Address [facility]/ZIP Co de Phone Number [facility] [address] [place] [phone] * (ABNORMAL) Hepatitis C Ab (12/21/2022 10:55 AM EDT) Pathologist [facility] Hepatitis C Antibody Reactive( A) Nonreactive [facility] Comment:Presumptive evidence of antibodies to HCV. 12/21/2022 10:5 5 AM EDT 12/21/2022 10:55 AM EDT [facility] External Provider LAB BLO OD ORDERABLES Final Result Performing Organization Address [facility]/ZIP Co de Phone Number [facility] [address] [place] [phone] * HIV Ab/Ag ([facility]) (12/21/2022 10:55 AM EDT) HIV AB/AG Nonreactive Nonreactive [facility] Comment:HIV-1 p24 Ag and/or HIV-1/HIV-2 Ab not detected.A test result that is nonreactive does not exclude thepossibility of exposure to or infection with HIV-1 and/orHIV-2. Nonreactive results in this assay for individualswith prior exposure to HIV-1 and/or HIV-2 may be due toantigen and antibody levels that are below the limit ofdetection of this assay.The [employer] HIV Ag/Ab Combo assay result andsupplemental assay results should be interpreted inconjunction with the patient's clinical presentation,history and other laboratory results. If the results areinconsistent with clinical evidence, additional testing issuggested to confirm the result. 12/21/2022 10:5 5 AM EDT 12/21/2022 10:55 AM EDT Generic External Data Provider LAB BLOOD ORDERAB LES Final Result Performing Organization Address [facility]/ZIP Co de Phone Number [facility] [address] [place] [phone] * Hm Colonoscopy (08/25/2022) Colonoscopy Normal Normal Narrative Griselda Segal - 08/25/2022 Recommended 1 year follow up due to poor prep Historical Provider HEALTH MAINTENANCE Final Result from Last 3 Months or Most Recently Relevant to Health Maintenance Insurance [facility] * Guarantor: Chelsi Connors Account Type Relation to Patient Date of Phone Billing Address Personal/Family Self [place], [place] Care Teams Gas Meter Installer Helper Relationship Specialty Start Date End Date Chelsi Kauffman MD [address] [place] [address] PCP - General Family Medicine 12/20/18
--- OUTSIDE RECORDS SUMMARY | 2024-07-10 15:15 | XMS_ITS | Encounter Summary ---
Author Organization [employer] Address [address] [facility] [address] [place] [address] Care Team Providers Care International Flight Attendant Name Role Phone Chelsi Kauffman MD Primary Care Provide r Reason for Visit * Reason Comments Med Refill Encounter Details Date Type Department Care Team ([facility] st Contact Info) Description 04/04/2023 Refill [facility] [address] [place], [place] [phone] Chelsi Kauffman MD [address] [place], [place] [phone] Asthma in adult, moderate persistent, uncomplicated Social [...] Description 07/16/2024 9:45 AM EDT Office Visit [facility] [address] [place] [address] 08/08/2024 11:00 AM EDT Office Visit [facility] AD[facility] [address] [place] [address] Alireza, Nicole [address] [place] [address] 08/28/2024 9:00 AM EDT Office Visit [facility] OPTOMET[facility] [address] [place] [address] Rito, Kennedi, OD [address] [place] [address] 09/23/2024 11:15 AM EDT Office Visit [facility] [address] [place] [address] Chelsi Kauffman MD [address] [place] [address] documented as of this encounter Visit Diagnoses Diagnosis Asthma in adult, moderate persistent, uncomplicated documented in this encounter Additional Health Concerns Assessment Noted Time PHQ-9 Depression Total Score: 24 023 2:25 PM EDT documented as of this encounter Care Teams International Flight Attendant Relationship Specialty Start Date End Date Chelsi Kauffman MD [address] [place] [phone] PCP - General Family Medicine 12/20/18 documented as of this encounter
--- OUTSIDE RECORDS SUMMARY | 2024-07-10 15:15 | XMS_ITS | Encounter Summary ---
Author Organization [employer] Address [address] [facility] [address] 7[address] [place] [address] Care Team Providers Care High School Tutor Name Role Phone Chelsi Kauffman MD Primary Care Provide r Reason for Visit * Reason Comments Med Refill Encounter Details Date Type Department Care Team ([facility] st Contact Info) Description 03/31/2023 Refill [facility] CHC MED & PEDS [address] [place] [address] Kiana Santos, DO 230 [place] [address] Vitamin D deficiency, unspecified Social History Tobacco [...] 9:45 AM EDT Office Visit [facility] MEDICINE [address] [place] [address] 08/08/2024 11:00 AM EDT Office Visit [facility] ADULT DENTAL [address] [place] [address] Alireza, Nicole [address] [place] [address] 08/28/2024 9:00 AM EDT Office Visit [facility] OPTOMETRY [address] [place] [address] Rito, Kennedi, OD 230 [place] [address] 09/23/2024 11:15 AM EDT Office Visit [facility] MEDICINE [address] [place] [address] Chelsi Kauffman MD [address] [place] [address] documented as of this encounter Visit Diagnoses Diagnosis Vitamin D deficiency, unspecified documented in this encounter Additional Health Concerns Assessment Noted Time PHQ-9 Depression Total Score: 24 023 2:25 PM EDT documented as of this encounter Care Teams High School Tutor Relationship Specialty Start Date End Date Chelsi Kauffman MD [address] [place] [address] PCP - General Family Medicine 12/20/18 documented as of this encounter
--- OUTSIDE RECORDS SUMMARY | 2024-07-10 15:15 | XMS_ITS | Encounter Summary ---
Author Organization [employer] [facility] Address [address] [place] [address] 7t [place] [address] Care Team Providers Care Manager Furniture Name Role Phone Chelsi Kauffman MD Primary Care Provide r Reason for Visit * Reason Comments Med Refill Encounter Details Date Type Department Care Team (Late st Contact Info) Description 09/18/2022 Refill [facility] MEDICINE [address] [place] [address] Chelsi Kauffman MD [address] [place] [address] Asthma in adult, moderate persistent, uncomplicated Social [...] 9:45 AM EDT Office Visit [facility] MEDICINE 230 [place], [place] [phone] 08/08/2024 11:00 AM EDT Office Visit [facility] ADULT DENTAL [address] [place], [place] [phone] Nicole Lay 230 [place] [address] 08/28/2024 9:00 AM EDT Office Visit [facility] OPTOMETRY [address] [place] [address] Kennedi Veras, OD 230 [place] [address] 09/23/2024 11:15 AM EDT Office Visit [facility] MEDICINE [address] [place] [address] Chelsi Kauffman MD 230 [place], [place] [phone] documented as of this encounter Visit Diagnoses Diagnosis Asthma in adult, moderate persistent, uncomplicated documented in this encounter Additional Health Concerns Assessment Noted Time PHQ-9 Depression Total Score: 24 07/26/2 023 2:25 PM EDT documented as of this encounter Care Teams Manager Furniture Relationship Specialty Start Date End Date Chelsi Kauffman MD 230 [place], [place] [phone] PCP - General Family Medicine 12/20/18 documented as of this encounter
--- OUTSIDE RECORDS SUMMARY | 2024-07-10 15:15 | XMS_ITS | Encounter Summary ---
Author Organization [employer] Address [address] [facility] [address] 7t [place] [address] Care Team Providers Care Flux Plant Operator Name Role Phone Chelsi Kauffman MD Primary Care Provide r Encounter Details Date Type Department Care Team ([facility] st Contact Info) Description 03/25/2024 Telephone [facility] MEDICINE [address] [place], [place] [phone] Chelsi Kauffman MD 230 [place] [address] Social History Tobacco Use Types Packs/Day Years [...] 9:45 AM EDT Office Visit [facility] MEDICINE 230 [place] [address] 08/08/2024 11:00 AM EDT Office Visit [facility] ADULT DENTAL [address] [place] [address] Alireza, Nicole [address] [place] [address] 08/28/2024 9:00 AM EDT Office Visit [facility] OPTOMETRY [address] [place] [address] Rito, Kennedi, OD 230 [place] [address] 09/23/2024 11:15 AM EDT Office Visit [facility] MEDICINE [address] [place] [address] Chelsi Kauffman MD 230 [place] [address] documented as of this encounter Goals Goal [...] documented as of this encounter Care Teams Flux Plant Operator Relationship Specialty Start Date End Date Chelsi Kauffman MD [address] [place] [address] PCP - General Family Medicine 12/20/18 documented as of this encounter
--- OUTSIDE RECORDS SUMMARY | 2024-07-10 15:15 | XMS_ITS | Encounter Summary ---
Author Organization [employer] [facility] Address [address] [facility] 7t [place] [address] Care Team Providers Care Core Winder Machine Operator Name Role Phone Chelsi Kauffman MD Primary Care Provide r Reason for Visit * Reason Onset Date Comments Durable Medical Equipment 07/28/2022 Encounter Details Date Type Department Care Team ([facility] st Contact Info) Description 07/28/2022 Telephone [facility] MEDICINE 230 [place] [address] Chelsi Kauffman MD 230 [place] [address] Durable Medical Equipment Social History Tobacco Use [...] Visit [facility] MEDICINE [address] [place] [address] 08/08/2024 11:00 AM EDT Office Visit [facility] ADULT DENTAL 230 [place] [address] Alireza, Nicole 230 [place] [address] 08/28/2024 9:00 AM EDT Office Visit [facility] OPTOMETRY [address] [place] [address] Rito, Kennedi, OD 230 [place] [address] 09/23/2024 11:15 AM EDT Office Visit [facility] MEDICINE 230 [place] [address] Chelsi Kauffman MD [address] [place] [address] documented as of this encounter Visit Diagnoses Not on filedocumented in this encounter Additional Health Concerns Assessment Noted Time PHQ-9 Depression Total Score: 24 07/26/ 023 2:25 PM EDT documented as of this encounter Care Teams Core Winder Machine Operator Relationship Specialty Start Date End Date Chelsi Kauffman MD 230 [place] [address] PCP - General Family Medicine 12/20/18 documented as of this encounter
--- OUTSIDE RECORDS SUMMARY | 2024-07-10 15:15 | XMS_ITS | Encounter Summary ---
Author Organization [email or web address] [facility] Address [address] [facility] 7t [place] [address] Care Team Providers Care Excavator Backhoe Operator Name Role Phone Chelsi Kauffman MD Primary Care Provide r Reason for Visit * Reason Onset Date Comments triage 06/09/2022 Encounter Details Date Type Department Care Team ([facility] st Contact Info) Description 06/09/2022 Telephone [facility] MEDICINE [address] [place] [address] Chelsi Kauffman MD [address] [place] [address] triage Social History Tobacco Use Types Packs/Day [...] 06/09/2022 12:16 PM EST Triage call with [employer] Infectious Diseases Physician ID [id number] Pt reports third time with Covid. Covid [...] accepted this outcome Please contact pt at [phone] Malagasy Speaker documented in this encounter Plan of Treatment Upcoming Encounters Date Type Department Care Team (Late st Contact Info) Description 07/16/2024 9:45 AM EDT Office Visit [facility] MEDICINE [address] [place] [address] 08/08/2024 11:00 AM EDT Office Visit [facility] ADULT DENTAL [address] [place] [address] Nicole Lay [address] [place] [address] 08/28/2024 9:00 AM EDT Office Visit [facility] OPTOMETRY [address] [place], [place] [phone] Rito, Kennedi, OD 230 [place] [address] 09/23/2024 11:15 AM EDT Office Visit [facility] MEDICINE [address] [place] [address] Chelsi Kauffman MD [address] [place] [address] documented as of this encounter Visit Diagnoses Not on filedocumented in this encounter Care Teams Excavator Backhoe Operator Relationship Specialty Start Date End Date Chelsi Kauffman MD 230 [place], [place] [phone] PCP - General Family Medicine 12/20/18 documented as of this encounter
--- OUTSIDE RECORDS SUMMARY | 2024-07-10 15:15 | XMS_ITS | Encounter Summary ---
Author Organization [employer] [facility] Address [address] [facility] 7t [place] [address] Care Team Providers Care Water Vessel Captain Name Role Phone Chelsi Kauffman MD Primary Care Provide r Reason for Visit * Reason Comments Med Refill Encounter Details Date Type Department Care Team ([facility] st Contact Info) Description 03/08/2023 Refill [facility] MEDICINE 230 [place], [place] [phone] Chelsi Kauffman MD 230 [place], [place] [phone] Migraine without aura, not refractory Social History [...] Description 07/16/2024 9:45 AM EDT Office Visit [facility] MEDICINE [address] [place] [address] 08/08/2024 11:00 AM EDT Office Visit [facility] ADULT DENTAL [address] [place] [address] Alireza, Nicole [address] [place] [address] 08/28/2024 9:00 AM EDT Office Visit [facility] OPTOMETRY [address] [place] [address] Rito, Kennedi, OD [address] [place] [address] 09/23/2024 11:15 AM EDT Office Visit [facility] MEDICINE [address] [place] [address] Chelsi Kauffman MD [address] [place] [address] documented as of this encounter Visit Diagnoses Diagnosis Migraine without aura, not refractory documented in this encounter Additional Health Concerns Assessment Noted Time PHQ-9 Depression Total Score: 24 023 2:25 PM EDT documented as of this encounter Care Teams Water Vessel Captain Relationship Specialty Start Date End Date Chelsi Kauffman MD [address] [place] [address] PCP - General Family Medicine 12/20/18 documented as of this encounter
--- OUTSIDE RECORDS SUMMARY | 2024-07-10 15:15 | XMS_ITS | Encounter Summary ---
Author Organization [employer] [facility] Address [address] [facility] 7t [place] [address] Care Team Providers Care Automatic Vulcanizing Lead Operator Name Role Phone Chelsi Kauffman MD Primary Care Provide r Reason for Visit * Reason Comments Med Refill Encounter Details Date Type Department Care Team ([facility] st Contact Info) Description 03/31/2023 Refill [facility] MEDICINE [address] [place] [address] Chelsi Kauffman MD 230 [place] [address] Dermatitis, seborrheic; Polyarthralgia Social History Tobacco Use [...] Description 07/16/2024 9:45 AM EDT Office Visit [facility] MEDICINE [address] [place] [address] 08/08/2024 11:00 AM EDT Office Visit [facility] ADULT DENTAL [address] [place] [address] Alireza, Nicole [address] [place] [address] 08/28/2024 9:00 AM EDT Office Visit [facility] OPTOMETRY [address] [place] [address] Rito, Kennedi, OD 230 [place] [address] 09/23/2024 11:15 AM EDT Office Visit [facility] MEDICINE [address] [place] [address] Chelsi Kauffman MD 230 [place] [address] documented as of this encounter Visit Diagnoses Diagnosis Dermatitis, seborrheic Unspecified seborrheic dermatitis Polyarthralgia Pain in joint, multiple sites documented in this encounter Additional Health Concerns Assessment Noted Time PHQ-9 Depression Total Score: 24 023 2:25 PM EDT documented as of this encounter Care Teams Automatic Vulcanizing Lead Operator Relationship Specialty Start Date End Date Chelsi Kauffman MD [address] [place] [address] PCP - General Family Medicine 12/20/18 documented as of this encounter
--- OUTSIDE RECORDS SUMMARY | 2024-07-10 15:15 | XMS_ITS | Encounter Summary ---
Author Organization [employer] Address [address] [facility] 7t [place] [address] Care Team Providers Care Seamer Operator Name Role Phone Chelsi Kauffman MD Primary Care Provide r Encounter Details Date Type Department Care Team (Late st Contact Info) Description 01/17/2023 Abstract [facility] MEDICINE 230 [place] [address] Griselda Segal Social History Tobacco Use Types [...] 9:45 AM EDT Office Visit [facility] MEDICINE 230 [place] [address] 08/08/2024 11:00 AM EDT Office Visit [facility] ADULT DENTAL [address] [place] [address] Alireza, Nicole [address] [place] [address] 08/28/2024 9:00 AM EDT Office Visit [facility] OPTOMETRY [address] [place] [address] Rito, Kennedi, OD 230 [place] [address] 09/23/2024 11:15 AM EDT Office Visit [facility] MEDICINE [address] [place] [address] Chelsi Kauffman MD 230 [place] [address] documented as of this encounter Procedures Procedure [...] documented as of this encounter Care Teams Seamer Operator Relationship Specialty Start Date End Date Chelsi Kauffman MD [address] [place] [address] PCP - General Family Medicine 12/20/18 documented as of this encounter
--- OUTSIDE RECORDS SUMMARY | 2024-07-10 15:16 | XMS_ITS | Encounter Summary ---
Author Organization [employer] Address [address] [facility] 7 [place] [address] Care Team Providers Care Door Fitter Name Role Phone Chelsi Kauffman MD Primary Care Provide r Reason for Visit * Reason Onset Date Comments Med Refill 05/30/2024 Encounter Details Date Type Department Care Team (Late st Contact Info) Description 05/30/2024 Refill [facility] MEDICINE 230 [place] [address] Chelsi Kauffman MD [address] [place] [address] Social History Tobacco Use Types Packs/Day Years [...] MG/0.5ML solution auto-injector To be sent to: [facility] - [place], [place] - [address] [place] [address] documented in this encounter Plan of Treatment Upcoming Encounters Date Type Department Care Team (Late st Contact Info) Description 07/16/2024 9:45 AM EDT Office Visit [facility] MEDICINE [address] [place] [address] 08/08/2024 11:00 AM EDT Office Visit [facility] ADULT DENTAL [address] [place] [address] Nicole Lay [address] [place] [address] 08/28/2024 9:00 AM EDT Office Visit [facility] OPTOMETRY [address] [place], [place] [phone] Kennedi Veras, OD 230 [place] [address] 09/23/2024 11:15 AM EDT Office Visit [facility] MEDICINE [address] [place] [address] Chelsi Kauffman MD 230 [place], [place] [phone] documented as of this encounter Goals Goal [...] documented as of this encounter Care Teams Door Fitter Relationship Specialty Start Date End Date Chelsi Kauffman MD 230 [place], [place] [phone] PCP - General Family Medicine 12/20/18 documented as of this encounter
--- OUTSIDE RECORDS SUMMARY | 2024-07-10 15:16 | XMS_ITS | Encounter Summary ---
Author Organization [employer] Address [address] [facility] 7t [place] [address] Care Team Providers Care Agents' Records Clerk Name Role Phone Chelsi Kauffman MD Primary Care Provide r Reason for Visit * Reason Comments Med Refill Encounter Details Date Type Department Care Team ([facility] st Contact Info) Description 05/06/2024 Refill [facility] MEDICINE [address] [place] [address] Chelsi Kauffman MD 230 [place] [address] Mild intermittent asthma without complication; Asthma in [...] the past 12 months, has t he [employer] gas, oil or water company threatened to [...] Description 07/16/2024 9:45 AM EDT Office Visit [facility] MEDICINE 230 [place] [address] 08/08/2024 11:00 AM EDT Office Visit [facility] ADULT DENTAL [address] [place] [address] Nicole Lay [address] [place] [address] 08/28/2024 9:00 AM EDT Office Visit [facility] OPTOMETRY [address] [place] [address] Kennedi Veras, OD 230 [place] [address] 09/23/2024 11:15 AM EDT Office Visit [facility] MEDICINE [address] [place] [address] Chelsi Kauffman MD 230 [place] [address] documented as of this encounter Goals Goal [...] documented as of this encounter Care Teams Agents' Records Clerk Relationship Specialty Start Date End Date Chelsi Kauffman MD 230 [place] [address] PCP - General Family Medicine 12/20/18 documented as of this encounter
--- OUTSIDE RECORDS SUMMARY | 2024-07-10 15:16 | XMS_ITS | Encounter Summary ---
Author Organization [employer] Address [address] [facility] [address] 7t [place] [address] Care Team Providers Care Reed Worker Name Role Phone Chelsi Kauffman MD Primary Care Provide r Encounter Details Date Type Department Care Team (Late st Contact Info) Description 05/06/2024 Orders Only [facility] MEDICINE 230 [place], [place] [phone] Mariana Meyer MD [address] [place] [address] Social History Tobacco Use Types Packs/Day Years [...] Description 07/16/2024 9:45 AM EDT Office Visit [facility] MEDICINE 230 [place] [address] 08/08/2024 11:00 AM EDT Office Visit [facility] ADULT DENTAL 230 [place] [address] Alireza, Nicole 230 [place] [address] 08/28/2024 9:00 AM EDT Office Visit [facility] OPTOMETRY [address] [place] [address] Rito, Kennedi, OD 230 [place] [address] 09/23/2024 11:15 AM EDT Office Visit [facility] MEDICINE 230 [place] [address] Chelsi Kauffman MD [address] [place] [address] documented as of this encounter Goals Goal [...] documented as of this encounter Care Teams Reed Worker Relationship Specialty Start Date End Date Chelsi Kauffman MD [address] [place] [address] PCP - General Family Medicine 12/20/18 documented as of this encounter
== END 2024-07-10 13:42 | disposition home or self-care (01) ==
LOC: HO.HOS 12:44
PROVIDERS: PCP Family Medicine; Visit Provider Physician Assistant
DX: M75.42 Impingement syndrome of left shoulder (principal); M75.41 Impingement syndrome of right shoulder
CPT/HCPCS: 20610; 99213

== ENCOUNTER 2024-07-15 10:52 | Outpatient (AMB) | payer OTHER, SELFPAY ==
[2024-07-15 10:55] VITALS: BMI 43.4
--- NOTE | 2024-07-15 10:55 | A.OFFVIS_ITS ---
Vital Signs 07/15/24 10:55 Height 5 ft 6 in Weight 269 lb BMI 43.4 Intake Visit Reasons: inj- RT knee injection, last inj 07/05/21 Intake Note: Chelsi is a 58 year old female who presents today for a follow up of her right knee OA. She was last seen 10/07/2021 and had the right knee injected. She would like to repeat injection today. Allergies No Known Allergies [No Known Allergies*] Allergy (Verified 07/10/24 13:00) HPI HPI inj- RT knee injection, last inj 07/05/21: Details: Chelsi is a 58 year old female who presents today for a follow up of her right knee OA. She was last seen 10/07/2021 and had the right knee injected. She would like to repeat injection today. She has been losing weight and for the most part feeling well. She does continue to describe right knee pain. The prior injection lasted for quite some time and she was interested in possibly getting another 1 today. 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 Trichomonal infection Screen for STD (sexually transmitted disease) Well woman exam Post covid-19 condition, unspecified TOUSSAINT (dyspnea on exertion) Urge incontinence Overactive bladder Stress incontinence Distal radius fracture, left Fracture of left distal radius Colon cancer screening Abdominal cramping Well woman exam with routine gynecological exam Subcutaneous abscess Cellulitis Urgency incontinence Microscopic hematuria Hx of fracture of wrist Hx of sleep apnea Hx of vertigo COVID GERD (gastroesophageal reflux disease) Pre-diabetes Epigastric pain Abdominal cramping Primary osteoarthritis of knees, bilateral Morbid obesity Osteoarthritis Fibromyalgia Arthritis Hypertension Surgical History History of open reduction and internal fixation (ORIF) procedure Hx of tubal ligation Hx of colonoscopy History of cholecystectomy (~2019) Family History Father Stomach cancer Brother Stomach problems Mother Diabetes Social History Household Members: Family Housing: Apartment Do you presently have visiting nurse or other home services: No Alcohol intake: current Alcohol intake frequency: holidays/special occasions only Comment: SLEEPING Patient Tobacco Use Status: Former Tobacco user Tobacco use type: Cigarette Second Hand Smoke Exposure: No Advance Directives Date on File: 01/28/20 service: No Current occupational status: unemployed Sexual orientation: Straight/Heterosexual Gender identity: Female Physical Exam Vital Signs: BMI result Body Mass Index 43.4 Extrem Other: Tenderness to palpation medial joint line right knee No effusion 0-120 degrees of motion Mild gait antalgia Office Procedures Joint Inj/Aspir; Non-Pain Clin Joint Injection/Drain Details: Injected 1 mL of Decadron and 3 mL 1% lidocaine and 3 mL of 0.25% Marcaine. Site was prepped using aseptic technique. Patient tolerated the procedure well. Shoulders, Hips, Knees, Knee Large Joint Injection : Right Knee Coding Procedure code (CPT) selection complete Assessment & Plan Assessment & Plan (1) Primary osteoarthritis of right knee: Code(s): M17.11 - Unilateral primary osteoarthritis, right knee Category: Medical Plan: This is a 58-year-old woman with osteoarthritis of the right knee. She is losing weight and doing fairly well. Surgery not perforate at this point. I injected her right knee. Continue weight loss. (2) BMI 40.0-44.9, adult: Code(s): Z68.41 - Body mass index [BMI] 40.0-44.9, adult Category: Medical Plan: Working on weight loss with her doctor Coding Level of Care Code Est Pt Level 3 (33587) Complex EM visit Add On G2211 Diagnoses Primary osteoarthritis of right knee M17.11 BMI 40.0-44.9, adult Z68.41 CPT Codes Shoulders, Hips, Knees, - Knee Large Joint Injection : Right Knee ([id number])
--- OUTSIDE RECORDS SUMMARY | 2024-07-15 12:59 | XMS_ITS | Encounter Summary ---
Author Organization [employer] [facility] Address [address] [facility] 7t [place] [address] Care Team Providers Care Bear Keeper Name Role Phone Chelsi Kauffman MD Primary Care Provide r Reason for Visit * Reason Comments Med Refill Encounter Details Date Type Department Care Team ([facility] st Contact Info) Description 03/31/2023 Refill [facility] MEDICINE [address] [place] [address] Chelsi Kauffman MD [address] [place] [address] Dermatitis, seborrheic; Polyarthralgia Social History Tobacco Use [...] Visit [facility] MEDICINE [address] [place] [address] 08/08/2024 11:00 AM EDT Office Visit [facility] ADULT DENTAL [address] [place] [address] Alireza, Nicole [address] [place] [address] 08/28/2024 9:00 AM EDT Office Visit [facility] OPTOMETRY [address] [place] [address] Rito, Kennedi, OD 230 [place] [address] 09/23/2024 11:15 AM EDT Office Visit [facility] MEDICINE [address] [place] [address] Chelsi Kauffman MD [address] [place] [address] documented as of this encounter Visit Diagnoses Diagnosis Dermatitis, seborrheic Unspecified seborrheic dermatitis Polyarthralgia Pain in joint, multiple sites documented in this encounter Additional Health Concerns Assessment Noted Time PHQ-9 Depression Total Score: 24 023 2:25 PM EDT documented as of this encounter Care Teams Bear Keeper Relationship Specialty Start Date End Date Chelsi Kauffman MD [address] [place] [address] PCP - General Family Medicine 12/20/18 documented as of this encounter
--- OUTSIDE RECORDS SUMMARY | 2024-07-15 12:59 | XMS_ITS | Encounter Summary ---
Author Organization [employer] Address [address] [facility] [address] 7t [place] [address] Care Team Providers Care Fruit Thinner Name Role Phone Chelsi Kauffman MD Primary Care Provide r Encounter Details Date Type Department Care Team ([facility] st Contact Info) Description 03/25/2024 Telephone [facility] MEDICINE 230 [place], [place] [phone] Chelsi Kauffman MD 230 [place] [address] Social History Tobacco Use Types Packs/Day Years [...] Description 07/16/2024 9:45 AM EDT Office Visit [facility] MEDICINE 230 [place] [address] 08/08/2024 11:00 AM EDT Office Visit [facility] ADULT DENTAL 230 [place] [address] Alireza, Nicole 230 [place] [address] 08/28/2024 9:00 AM EDT Office Visit [facility] OPTOMETRY [address] [place] [address] Rito, Kennedi, OD 230 [place] [address] 09/23/2024 11:15 AM EDT Office Visit [facility] MEDICINE 230 [place] [address] Chelsi Kauffman MD 230 [place] [address] documented as of this encounter Goals Goal [...] documented as of this encounter Care Teams Fruit Thinner Relationship Specialty Start Date End Date Chelsi Kauffman MD [address] [place] [address] PCP - General Family Medicine 12/20/18 documented as of this encounter
--- OUTSIDE RECORDS SUMMARY | 2024-07-15 12:59 | XMS_ITS | Encounter Summary ---
Author Organization [employer] Address 75 [facility] 7t [place] [address] Care Team Providers Care Multiskill Operator Name Role Phone Chelsi Kauffman MD Primary Care Provide r Reason for Visit * Reason Comments Med Refill Encounter Details Date Type Department Care Team (Late st Contact Info) Description 08/24/2022 Refill [facility] CHC MED & PEDS [address] [place] [address] Mariana Meyer MD [address] [place] [address] Social History Tobacco Use Types Packs/Day Years [...] Upcoming Encounters Date Type Department Care Team ([facility] Contact Info) Description 07/16/2024 9:45 AM EDT Office Visit [facility] MEDICINE 230 [place], [place] [phone] 08/08/2024 11:00 AM EDT Office Visit [facility] ADULT DENTAL 230 [place] [address] Alireza, Nicole 230 [place] [address] 08/28/2024 9:00 AM EDT Office Visit [facility] OPTOMETRY [address] [place], [place] [phone] Rito, Kennedi, OD 230 [place] [address] 09/23/2024 11:15 AM EDT Office Visit [facility] MEDICINE 230 [place] [address] Chelsi Kauffman MD 230 [place] [address] documented as of this encounter Visit Diagnoses Not on filedocumented in this encounter Additional Health Concerns Assessment Noted Time PHQ-9 Depression Total Score: 24 023 2:25 PM EDT documented as of this encounter Care Teams Multiskill Operator Relationship Specialty Start Date End Date Chelsi Kauffman MD 230 [place], [place] [phone] PCP - General Family Medicine 12/20/18 documented as of this encounter
--- OUTSIDE RECORDS SUMMARY | 2024-07-15 12:59 | XMS_ITS | Encounter Summary ---
Author Organization [employer] [facility] Address [address] [place] [address] 7t [place] [address] Care Team Providers Care Entry Driver Operator Name Role Phone Chelsi Kauffman MD Primary Care Provide r Encounter Details Date Type Department Care Team (Latest Contact Info) Description 09/04/2020 Abstract [facility] CONVERSIONS Dental, Provider, DDS Social History Tobacco [...] Description 07/16/2024 9:45 AM EDT Office Visit [facility] MEDICINE 230 [place] [address] 08/08/2024 11:00 AM EDT Office Visit [facility] ADULT DENTAL [address] [place] [address] Alireza, Nicole 230 [place] [address] 08/28/2024 9:00 AM EDT Office Visit [facility] OPTOMETRY [address] [place] [address] Rito, Kennedi, OD 230 [place] [address] 09/23/2024 11:15 AM EDT Office Visit [facility] MEDICINE 230 [place] [address] Chelsi Kauffman MD 230 [place] [address] documented as of this encounter Visit Diagnoses Not on filedocumented in this encounter Care Teams Entry Driver Operator Relationship Specialty Start Date End Date Chelsi Kauffman MD [address] [place] [address] PCP - General Family Medicine 12/20/18 documented as of this encounter
--- OUTSIDE RECORDS SUMMARY | 2024-07-15 12:59 | XMS_ITS | Encounter Summary ---
Author Organization [employer] Address [address] [facility] [address] 7t [place] [address] Care Team Providers Care Pv Installer Tech Name Role Phone Chelsi Kauffman MD Primary Care Provide r Reason for Visit * Reason Comments Med Refill Encounter Details Date Type Department Care Team ([facility] st Contact Info) Description 03/31/2023 Refill [facility] CHC MED & PEDS [address] [place] [address] Kiana Santos, DO 230 [place] [address] Vitamin D deficiency, unspecified Social History Tobacco [...] Visit [facility] MEDICINE 230 [place] [address] 08/08/2024 11:00 AM EDT Office Visit [facility] ADULT DENTAL 230 [place] [address] Alireza, Nicole 230 [place] [address] 08/28/2024 9:00 AM EDT Office Visit [facility] OPTOMETRY [address] [place] [address] Rito, Kennedi, OD 230 [place] [address] 09/23/2024 11:15 AM EDT Office Visit [facility] MEDICINE 230 [place] [address] Chelsi Kauffman MD 230 [place] [address] documented as of this encounter Visit Diagnoses Diagnosis Vitamin D deficiency, unspecified documented in this encounter Additional Health Concerns Assessment Noted Time PHQ-9 Depression Total Score: 24 023 2:25 PM EDT documented as of this encounter Care Teams Pv Installer Tech Relationship Specialty Start Date End Date Chelsi Kauffman MD [address] [place] [address] PCP - General Family Medicine 12/20/18 documented as of this encounter
--- OUTSIDE RECORDS SUMMARY | 2024-07-15 12:59 | XMS_ITS | Encounter Summary ---
Author Organization [employer] Address 75 [facility] 7t [place] [address] Care Team Providers Care Beekeeper Farmer Name Role Phone Chelsi Kauffman MD Primary Care Provide r Reason for Referral * Consultation (Routine) - Closed Specialty Diagnoses / Procedures Referred By Contac t Referred To Contact Physical Therapy Diagnoses Benign paroxysmal vertigo, unspecified laterality Christine Laurent MD [address] [place] [address] Phone: tel: fax: [facility] Physical Therapy [address] [place] [address] Phone: tel: fax: Referral ID Status Reason Start Date Expiration Date V isits Requested Visits Authorized [id number] Closed Specialty Services Required 04/26/2024 04/26/2025 1 1 Encounter Details Date Type Department Care Team (Late st Contact Info) Description 04/26/2024 Orders Only [facility] MEDICINE [address] [place] [phone] Christine Laurent MD [address] [place] [address] [phone] Benign paroxysmal vertigo, unspecified laterality (Primary Dx) [...] Description 07/16/2024 9:45 AM EDT Office Visit [facility] MEDICINE 230 [place] [address] 08/08/2024 11:00 AM EDT Office Visit [facility] ADULT DENTAL 230 [place], [place] [phone] Nicole Lay 230 [place] [address] 08/28/2024 9:00 AM EDT Office Visit [facility] OPTOMETRY [address] [place] [address] Kennedi Veras, OD 230 [place] [address] 09/23/2024 11:15 AM EDT Office Visit [facility] MEDICINE 230 [place] [address] Chelsi Kauffman MD 230 [place], [place] [phone] Scheduled Referrals Name Type Priority Associated Diagnoses [...] documented as of this encounter Care Teams Beekeeper Farmer Relationship Specialty Start Date End Date Chelsi Kauffman MD 230 [place], [place] [phone] PCP - General Family Medicine 12/20/18 documented as of this encounter
--- OUTSIDE RECORDS SUMMARY | 2024-07-15 12:59 | XMS_ITS | Encounter Summary ---
Author Organization [email or web address] Address 75 [facility] 7t [place] [address] Care Team Providers Care Business Rules Analyst Name Role Phone Chelsi Kauffman MD Primary Care Provide r Reason for Visit * Reason Comments Med Refill Encounter Details Date Type Department Care Team ([facility] st Contact Info) Description 11/10/2023 Refill [facility] 230 [place] [address] Chelsi Kauffman MD 230 [place] [address] Chronic toe pain, left foot Social History [...] Description 07/16/2024 9:45 AM EDT Office Visit [facility] 230 [place] [address] 08/08/2024 11:00 AM EDT Office Visit [facility] ADULT DENTAL [address] [place] [address] Alireza, Nicole 230 [place] [address] 08/28/2024 9:00 AM EDT Office Visit [facility] OPTOMETRY [address] [place] [address] Rito, Kennedi, OD 230 [place] [address] 09/23/2024 11:15 AM EDT Office Visit [facility] MED[facility] [address] [place] [address] Chelsi Kauffman MD 230 [place] [address] documented as of this encounter Goals Goal [...] documented as of this encounter Care Teams Business Rules Analyst Relationship Specialty Start Date End Date Chelsi Kauffman MD 230 [place] [address] PCP - General Family Medicine 12/20/18 documented as of this encounter
--- OUTSIDE RECORDS SUMMARY | 2024-07-15 12:59 | XMS_ITS | Encounter Summary ---
Author Organization [employer] Address 75 [facility] 7t [place] [address] Care Team Providers Care Inspector And Tester Name Role Phone Chelsi Kauffman MD Primary Care Provide r Reason for Visit * Reason Onset Date Comments Reschedule 06/13/2023 Encounter Details Date Type Department Care Team ([facility] st Contact Info) Description 06/13/2023 Telephone [facility] MEDICINE 230 [place] [address] Chelsi Kauffman MD 230 [place] [address] Reschedule Social History Tobacco Use Types Packs/Day [...] 04/07 Derm appointment. Please contact pt at [phone] documented in this encounter Plan of Treatment Upcoming Encounters Date Type Department Care Team (Late st Contact Info) Description 07/16/2024 9:45 AM EDT Office Visit [facility] MEDICINE 230 [place] [address] 08/08/2024 11:00 AM EDT Office Visit [facility] ADULT DENTAL [address] [place] [address] Alireza, Nicole 230 [place] [address] 08/28/2024 9:00 AM EDT Office Visit [facility] OPTOMETRY [address] [place] [address] Rito, Kennedi, OD 230 [place] [address] 09/23/2024 11:15 AM EDT Office Visit [facility] MEDICINE 230 [place] [address] Chelsi Kauffman MD 230 [place] [address] documented as of this encounter Visit Diagnoses Not on filedocumented in this encounter Additional Health Concerns Assessment Noted Time PHQ-9 Depression Total Score: 0 04/25/19 24 9:30 AM EST documented as of this encounter Care Teams Inspector And Tester Relationship Specialty Start Date End Date Chelsi Kauffman MD 230 [place] [address] PCP - General Family Medicine 12/20/18 documented as of this encounter
--- OUTSIDE RECORDS SUMMARY | 2024-07-15 12:59 | XMS_ITS | Encounter Summary ---
Author Organization [employer] Address 75 [facility] 7t [place] [address] Care Team Providers Care Groundskeeping Yardman Name Role Phone Chelsi Kauffman MD Primary Care Provide r Reason for Visit * Reason Comments Med Refill Encounter Details Date Type Department Care Team ([facility] st Contact Info) Description 09/14/2023 Refill [facility] MEDICINE 230 [place], [place] [phone] Chelsi Kauffman MD 230 [place] [address] Polyarthralgia Social History Tobacco Use Types Packs/Day [...] 07/16/2024 9:45 AM EDT Office Visit [facility] MEDICINE 230 [place] [address] 08/08/2024 11:00 AM EDT Office Visit [facility] ADULT DENTAL 230 [place] [address] Alireza, Nicole [address] [place] [address] 08/28/2024 9:00 AM EDT Office Visit [facility] OPTOMETRY [address] [place] [address] Rito, Kennedi, OD 230 [place] [address] 09/23/2024 11:15 AM EDT Office Visit [facility] MEDICINE [address] [place] [address] Chelsi Kauffman MD 230 [place] [address] documented as of this encounter Goals Goal [...] documented as of this encounter Care Teams Groundskeeping Yardman Relationship Specialty Start Date End Date Chelsi Kauffman MD 230 [place] [address] PCP - General Family Medicine 12/20/18 documented as of this encounter
--- OUTSIDE RECORDS SUMMARY | 2024-07-15 12:59 | XMS_ITS | Encounter Summary ---
Author Organization [employer] [facility] Address 75 [facility] 7t [place] [address] Care Team Providers Care Truck Service Manager Name Role Phone Chelsi Kauffman MD Primary Care Provide r Reason for Visit * Reason Onset Date Comments Durable Medical Equipment 07/28/2022 Encounter Details Date Type Department Care Team ([facility] st Contact Info) Description 07/28/2022 Telephone [facility] MEDICINE 230 [place] [address] Chelsi Kauffman MD 230 [place] [address] Durable Medical Equipment Social History Tobacco Use [...] 07/16/2024 9:45 AM EDT Office Visit [facility] MEDICINE [address] [place] [address] 08/08/2024 11:00 AM EDT Office Visit [facility] ADULT DENTAL [address] [place] [address] Alireza, Nicole 230 [place] [address] 08/28/2024 9:00 AM EDT Office Visit [facility] OPTOMETRY [address] [place] [address] Rito, Kennedi, OD 230 [place] [address] 09/23/2024 11:15 AM EDT Office Visit [facility] MEDICINE 230 [place] [address] Chelsi Kauffman MD 230 [place] [address] documented as of this encounter Visit Diagnoses Not on filedocumented in this encounter Additional Health Concerns Assessment Noted Time PHQ-9 Depression Total Score: 24 07/26/ 023 2:25 PM EDT documented as of this encounter Care Teams Truck Service Manager Relationship Specialty Start Date End Date Chelsi Kauffman MD 230 [place] [address] PCP - General Family Medicine 12/20/18 documented as of this encounter
--- OUTSIDE RECORDS SUMMARY | 2024-07-15 12:59 | XMS_ITS | Encounter Summary ---
Author Organization [employer] [facility] Address [address] [place] [address] 7 [place] [address] Care Team Providers Care Gas Station Cashier Name Role Phone Chelsi Kauffman MD Primary Care Provide r Encounter Details Date Type Department Care Team (Latest Contact Info) Description 11/23/2021 Abstract [facility] CONVERSION[facility] Dental, Provider, DDS Social History Tobacco [...] 9:45 AM EDT Office Visit [facility] MEDICINE 230 [place] [address] 08/08/2024 11:00 AM EDT Office Visit [facility] ADULT DENTAL 230 [place] [address] Alireza, Nicole 230 [place] [address] 08/28/2024 9:00 AM EDT Office Visit [facility] OPTOMETRY [address] [place] [address] Rito, Kennedi, OD 230 [place] [address] 09/23/2024 11:15 AM EDT Office Visit [facility] MEDICINE 230 [place] [address] Chelsi Kauffman MD 230 [place] [address] documented as of this encounter Visit Diagnoses Not on filedocumented in this encounter Care Teams Gas Station Cashier Relationship Specialty Start Date End Date Chelsi Kauffman MD [address] [place] [address] PCP - General Family Medicine 12/20/18 documented as of this encounter
--- OUTSIDE RECORDS SUMMARY | 2024-07-15 12:59 | XMS_ITS | Encounter Summary ---
Author Organization [employer] Address [address] [facility] [address] 7t [place] [address] Care Team Providers Care Patternmaker Apprentice Metal Name Role Phone Chelsi Kauffman MD Primary Care Provide r Encounter Details Date Type Department Care Team (Late st Contact Info) Description 05/06/2024 Orders Only [facility] MEDICINE 230 [place], [place] [phone] Mariana Meyer MD 230 [place] [address] Social History Tobacco Use Types Packs/Day Years [...] 07/16/2024 9:45 AM EDT Office Visit [facility] MEDICINE 230 [place] [address] 08/08/2024 11:00 AM EDT Office Visit [facility] ADULT DENTAL [address] [place] [address] Alireza, Nicole [address] [place] [address] 08/28/2024 9:00 AM EDT Office Visit [facility] OPTOMETRY [address] [place] [address] Rito, Kennedi, OD 230 [place] [address] 09/23/2024 11:15 AM EDT Office Visit [facility] MEDICINE [address] [place] [address] Chelsi Kauffman MD 230 [place] [address] documented as of this encounter Goals Goal [...] documented as of this encounter Care Teams Patternmaker Apprentice Metal Relationship Specialty Start Date End Date Chelsi Kauffman MD 230 [place] [address] PCP - General Family Medicine 12/20/18 documented as of this encounter
--- OUTSIDE RECORDS SUMMARY | 2024-07-15 12:59 | XMS_ITS | Encounter Summary ---
Author Organization [employer] Address 75 [facility] 7t [place] [address] Care Team Providers Care Charge Weigher Name Role Phone Chelsi Kauffman MD Primary Care Provide r Reason for Visit * Reason Comments Med Refill Encounter Details Date Type Department Care Team ([facility] st Contact Info) Description 05/09/2023 Refill [facility] MEDICINE 230 [place], [place] [phone] Chelsi Kauffman MD 230 [place], [place] [phone] Migraine without aura, not refractory Social History [...] Description 07/16/2024 9:45 AM EDT Office Visit [facility] MEDICINE 230 [place] [address] 08/08/2024 11:00 AM EDT Office Visit [facility] ADULT DENTAL 230 [place] [address] Alireza, Nicole 230 [place] [address] 08/28/2024 9:00 AM EDT Office Visit [facility] OPTOMETRY [address] [place] [address] Rito, Kennedi, OD 230 [place] [address] 09/23/2024 11:15 AM EDT Office Visit [facility] MEDICINE 230 [place] [address] Chelsi Kauffman MD [address] [place] [address] documented as of this encounter Visit Diagnoses Diagnosis Migraine without aura, not refractory documented in this encounter Additional Health Concerns Assessment Noted Time PHQ-9 Depression Total Score: 0 04/25/19 24 9:30 AM EST documented as of this encounter Care Teams Charge Weigher Relationship Specialty Start Date End Date Chelsi Kauffman MD [address] [place] [address] PCP - General Family Medicine 12/20/18 documented as of this encounter
--- OUTSIDE RECORDS SUMMARY | 2024-07-15 12:59 | XMS_ITS | Encounter Summary ---
Author Organization [employer] Address 75 [facility] 7t [place] [address] Care Team Providers Care Side Puller Name Role Phone Chelsi Kauffman MD Primary Care Provide r Reason for Visit * Reason Onset Date Comments triage 06/09/2022 Encounter Details Date Type Department Care Team ([facility] st Contact Info) Description 06/09/2022 Telephone [facility] MEDICINE 230 [place] [address] Chelsi Kauffman MD 230 [place] [address] triage Social History Tobacco Use Types Packs/Day [...] Miscellaneous Notes * Telephone Encounter - Carmen Phlilips RN - 06/09/2022 12:16 PM EST Triage call with [employer] Cellar Supervisor ID [id number] Pt reports third time with Covid. Covid [...] accepted this outcome Please contact pt at [phone] Palauan Speaker documented in this encounter Plan of Treatment Upcoming Encounters Date Type Department Care Team (Late st Contact Info) Description 07/16/2024 9:45 AM EDT Office Visit [facility] MEDICINE 230 [place] [address] 08/08/2024 11:00 AM EDT Office Visit [facility] ADULT DENTAL [address] [place] [address] Nicole Lay [address] [place] [address] 08/28/2024 9:00 AM EDT Office Visit [facility] OPTOMETRY [address] [place], [place] [phone] Rito, Kennedi, OD 230 [place] [address] 09/23/2024 11:15 AM EDT Office Visit [facility] MEDICINE [address] [place] [address] Chelsi Kauffman MD 230 [place] [address] documented as of this encounter Visit Diagnoses Not on filedocumented in this encounter Care Teams Side Puller Relationship Specialty Start Date End Date Chelsi Kauffman MD 230 [place], [place] [phone] PCP - General Family Medicine 12/20/18 documented as of this encounter
--- OUTSIDE RECORDS SUMMARY | 2024-07-15 12:59 | XMS_ITS | Encounter Summary ---
Author Organization [employer] Address 75 [facility] 7t [place] [address] Care Team Providers Care Professor Of Practice Name Role Phone Chelsi Kauffman MD Primary Care Provide r Reason for Visit * Reason Comments Med Refill Encounter Details Date Type Department Care Team (Late st Contact Info) Description 08/29/2022 Refill [facility] CHC MED & PEDS [address] [place] [address] Chelsi Kauffman MD 230 [place] [address] Mild intermittent asthma without complication Social History [...] Description 07/16/2024 9:45 AM EDT Office Visit [facility] MEDICINE 230 [place], [place] [phone] 08/08/2024 11:00 AM EDT Office Visit [facility] ADULT DENTAL 230 [place], [place] [phone] Nicole Lay [address] [place] [address] 08/28/2024 9:00 AM EDT Office Visit [facility] OPTOMETRY [address] [place] [address] Kennedi Veras, OD 230 [place] [address] 09/23/2024 11:15 AM EDT Office Visit [facility] MEDICINE [address] [place] [address] Chelsi Kauffman MD [address] [place] [address] documented as of this encounter Visit Diagnoses Diagnosis Mild intermittent asthma without complication documented in this encounter Additional Health Concerns Assessment Noted Time PHQ-9 Depression Total Score: 24 07/26/ 023 2:25 PM EDT documented as of this encounter Care Teams Professor Of Practice Relationship Specialty Start Date End Date Chelsi Kauffman MD 230 [place], [place] [phone] PCP - General Family Medicine 12/20/18 documented as of this encounter
--- OUTSIDE RECORDS SUMMARY | 2024-07-15 12:59 | XMS_ITS | Encounter Summary ---
Author Organization [employer] [facility] Address [address] [place] [address] 7t [place] [address] Care Team Providers Care Wool Grader Name Role Phone Chelsi Kauffman MD Primary Care Provide r Reason for Visit * Reason Comments Med Refill Encounter Details Date Type Department Care Team (Late st Contact Info) Description 09/18/2022 Refill [facility] MEDICINE [address] [place] [address] Chelsi Kauffman MD [address] [place] [address] Asthma in adult, moderate persistent, uncomplicated Social [...] Description 07/16/2024 9:45 AM EDT Office Visit [facility] MEDICINE 230 [place], [place] [phone] 08/08/2024 11:00 AM EDT Office Visit [facility] ADULT DENTAL [address] [place], [place] [phone] Nicole Lay [address] [place] [address] 08/28/2024 9:00 AM EDT Office Visit [facility] OPTOMETRY [address] [place] [address] Kennedi Veras, OD 230 [place] [address] 09/23/2024 11:15 AM EDT Office Visit [facility] MEDICINE [address] [place] [address] Chelsi Kauffman MD 230 [place], [place] [phone] documented as of this encounter Visit Diagnoses Diagnosis Asthma in adult, moderate persistent, uncomplicated documented in this encounter Additional Health Concerns Assessment Noted Time PHQ-9 Depression Total Score: 24 07/26/2 023 2:25 PM EDT documented as of this encounter Care Teams Wool Grader Relationship Specialty Start Date End Date Chelsi Kauffman MD 230 [place], [place] [phone] PCP - General Family Medicine 12/20/18 documented as of this encounter
--- OUTSIDE RECORDS SUMMARY | 2024-07-15 12:59 | XMS_ITS | Clinical Summary ---
Author Organization [employer] Address [address] [facility] [address] [place] [address] Care Team Providers Care Electrician Yard Name Role Phone Chelsi Kauffman MD [...] mL 1 Active Blood Glucose Monitoring Suppl (Think-Now [place] Lite) w/Device kitIndications:P rediabetes Use to test [...] (BMI) of 40.0 to 44.9 in adult ([facility]) Inject 0.5 mL (10 mg) under the [...] NEEDED 9 tablet 1 024 2024 Discontinued gabapentin (Neurontin) 600 MG tabletIndication s:Chronic toe pain, left foot TAKE 1 TABLET BY MOUTH TWICE DAILY IN THE MORNING AND IN THE EVENING 60 tablet 1 025 2024 Discontinued amitriptyline (Elavil) 50 MG tabletIndication s:Migraine without aura, not refractory TAKE 1 TABLET BY MOUTH AT BEDTIME 30 tablet 1 025 2024 Discontinued DULoxetine (Cymbalta) [address] Hdez ns:Moderate episode of recurrent major depressive disorder [...] (BMI) of 40.0 to 44.9 in adult ([facility]) Inject 0.5 mL (7.5 mg) under the [...] lumbar anterolisthesis Rx: oxycodone 5mg BID Last ACTUARIAL MANAGER agreement: 04/23/24 Tier: III (Q4-6 months), Dr. [...] if is persistently high to contact me rubber tubing backer pain 03/18/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 - Recommended watching An[employer] videos fro stretching and exercises that can [...] Type Department Care Team Description 07/07/2024 Refill [facility] [address] [facility] [place] [address] Mariana Meyer MD Moderate episode of recurrent major depressive disorder ([facility]/HCC); Migraine without aura, not refractory; Chronic toe pain, left foot; HTN (hypertension), benign; Essential hypertension 07/07/2024 Refill [facility] [address] [place] [address] Chelsi Kauffman MD Essential hypertension 06/27/2024 Telephone [facility] [address] [place] [address] Chelsi Kauffman MD Durable Medical Equipment (DME Request: life alert and grab bars) 06/24/2024 Refill [facility] [address] [place] [address] Chelsi Kauffman MD Migraine without aura, not refractory 06/21/2024 11:00 AM EDT Office Visit [facility] [address] [facility] [place] [address] Chelsi Kauffman MD Class 3 severe obesity due to excess calories with serious comorbidity and body mass index (BMI) of 40.0 to 44.9 in adult ([facility]/HCC) (Primary Dx); Essential hypertension; Chronic bilateral low back pain without sciatica; Unstable gait 06/21/2024 Travel 06/18/2024 9:45 AM EDT Office Visit [facility] [address] [place] [address] Mackenzie Whatley FNP Long-term current use of opiate analgesic (Primary Dx); Anterolisthesis of lumbar spine 06/18/2024 Refill [facility] [address] [facility], [place] [phone] Chelsi Kauffman MD Chronic midline low back pain with right-sided sciatica; Polyarthralgia 06/18/2024 Travel 06/14/2024 Refill [facility] [address] [place] [address] Chelsi Kauffman MD Polyarthralgia 06/13/2024 Patient Outreach [facility] [address] [place] [address] Chelsi Kauffman MD Pre-visit Planning (SDOH screening negative and tobacco screening negative) 06/10/2024 Travel 06/10/2024 Telephone [facility] [address] [place] [address] Chelsi Kauffman MD [facility] (Attend wipes) 06/06/2024 Refill [facility] [address] [place] [address] Chelsi Kauffman MD Vertigo; Hypertension, unspecified type; Preventative health care 05/31/2024 Orders Only [facility] [address] [place] [address] Chelsi Kauffman MD Nausea (Primary Dx) 05/30/2024 Orders Only [facility] [address] [place] [address] Chelsi Kauffman MD Class 3 severe obesity due to excess calories with serious comorbidity and body mass index (BMI) of 40.0 to 44.9 in adult ([facility]) (Primary Dx) 05/30/2024 Telephone [facility] [address] [place] [address] Chelsi Kauffman MD Nurse Triage 05/30/2024 Refill [facility] [address] [place] [address] Chelsi Kauffman MD 05/29/2024 Refill [facility] [address] [place], [place] [phone] Chelsi Kauffman MD Intertrigo 05/28/2024 Refill [facility] [address] [place] [address] Chelsi Kauffman MD Prediabetes 05/22/2024 Refill [facility] [address] [place] [address] Chelsi Kauffman MD Chronic midline low back pain with right-sided sciatica; Polyarthralgia 05/07/2024 Refill [facility] [address] [place], [place] [phone] Chelsi Kauffman MD Mild intermittent asthma without complication 05/06/2024 Orders Only [facility] [address] [place] [address] Mariana Meyer MD 05/06/2024 Refill [facility] [address] [place] [address] Chelsi Kauffman MD Mild intermittent asthma without complication; Asthma in adult, moderate persistent, uncomplicated 05/06/[address] [address] Chelsi Kauffman MD telephone call 05/05/2024 Refill [facility] [address] [place] [address] Chelsi Kauffman MD Chronic toe pain, left foot; Migraine without aura, not refractory; Moderate episode of recurrent major depressive disorder (CMS/HCC); HTN (hypertension), benign 04/30/[address] [address] Chelsi Kauffman MD Prior Authorization ([facility] Request: Saman) 04/26/2024 Orders Only [facility] [address] [place] [address] Christine Laurent MD Benign paroxysmal vertigo, unspecified laterality (Primary Dx) 04/23/2024 9:45 AM EST Office Visit [facility] [address] [place] [address] Mackenzie Whatley FNP Anterolisthesis of lumbar spine (Primary Dx); 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; Long-term current use of opiate analgesic 04/23/2024 Telephone [facility] [address] [place] [address] Mackenzie Whatley, MYRIAM 04/23/2024 Telephone [facility] [address] [place] [address] Shameka Brantley, RN ACTUARIAL MANAGER Renewal today 04/23/2024 Travel 04/18/2024 Refill [facility] [address] [place], [place] [phone] Chelsi Kauffman MD Chronic midline low back pain with right-sided sciatica; Polyarthralgia from Last 3 Months Immunizations Name Administration [...] Description 07/16/2024 9:45 AM EDT Office Visit [facility] [address] [place] [address] 08/08/2024 11:00 AM EDT Office Visit [facility] AD[facility] DENT[facility] [address] [place] [address] Alireza, Nicole [address] [place] [address] 08/28/2024 9:00 AM EDT Office Visit [facility] OPTOMET[facility] [address] [place] [address] Rito, Kennedi, OD [address] [place] [address] 09/23/2024 11:15 AM EDT Office Visit [facility] [address] [place] [address] Chelsi Kauffman MD [address] [place] [address] Health Maintenance Due Date Last Done Comments [...] exists Dental X-Ray: Full Mouth 02/25/2026 02/24/2023, 12/0 09/2018 Cervical Cancer Screening 07/03/2028 HPV/Cotest 07/03/2028 [...] (BMI) of 40.0 to 44.9 in adult ([facility]) VITAMIN D,25-OH,TOTAL,IA Routine 07/10/2024 12:13 PM EDT Class 3 severe obesity due to excess calories with serious comorbidity and body mass index (BMI) of 40.0 to 44.9 in adult ([facility]) LIPID PANEL, STANDARD Routine 07/10/2024 12:13 PM EDT Class 3 severe obesity due to excess calories with serious comorbidity and body mass index (BMI) of 40.0 to 44.9 in adult ([facility]) Essential hypertension HEMOGLOBIN A1C Routine 07/10/2024 12:13 PM EDT Class 3 severe obesity due to excess calories with serious comorbidity and body mass index (BMI) of 40.0 to 44.9 in adult ([facility]) Essential hypertension COMPREHENSIVE METABOLIC PANEL Routine 07/10/2024 12:13 PM EDT Class 3 severe obesity due to excess calories with serious comorbidity and body mass index (BMI) of 40.0 to 44.9 in adult ([facility]) CBC WITH AUTO DIFFERENTIAL Routine 07/10/2024 12:13 PM EDT Class 3 severe obesity due to excess calories with serious comorbidity and body mass index (BMI) of 40.0 to 44.9 in adult ([facility]) POCT ANIKA-14 URINE DRUG SCREEN Routine 06/18/2024 11:29 AM EDT Long-term current use of opiate analgesic POCT ANIKA-14 URINE DRUG SCREEN Routine 04/23/2024 1:37 PM EST 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 N [...] 12:13 PM EDT 07/10/2024 12:13 PM EDT Chelsi Reece MD LAB BLOOD ORDERABLES Final Result Performing Organization Address [facility]/ZIP Co de Phone Number [facility] [address] [place] [phone] * TSH with Reflex to Free T4 (07/10/2024 12:13 PM EDT) TSH reflex Free T4 0.80 0.32 - 4.0 uIU/mL [facility] Blood Venous blood specimen / Unknown 07/10/2024 12:13 PM EDT 07/10/2024 12:13 PM EDT us Chelsi Reece MD LAB BLOOD ORDERABLES Final Result Performing Organization Address City/[facility]/ZIP Co de Phone Number [facility] [address] [place] [phone] * (ABNORMAL) CBC auto differential (07/10/2024 12:13 PM EDT) White Blood Count 10.7 4.8 - 10.8 X10*3/uL [facility] Red Blood Count 4.91 4.20 - 5.50 X10*6/uL [facility] Hemoglobin 14.0 12.0 - 16.0 g/dl [facility] Hematocrit 43.4 37.0 - 47.0 % [facility] Mean Corpuscular Volume 88.4 80.0 - 98.0 fL [facility] Mean Corpuscular Hemoglobin 28.5 27.0 - 33.0 pg [facility] Mean Corpuscular HGB Conc 32.3 31.0 - 35.0 g/dl [facility] Red Cell Distribution Width 13.7 11.0 - 16.0 % [facility] Platelet Count 268 160 - 400 X10*3/uL [facility] Mean Platelet Volume 11.0 9.4 - 12.3 fL [facility] Neutrophils Percent Auto 73.0 45 - 73 % [facility] Imm Gran Pct Auto 0.3 0.0 - 0.4 % [facility] Lymphocytes Percent Auto 18.3(L) 20 - 40 % [facility] Monocytes Percent Auto 6.8 2 - 11 % [facility] Eosinophils Percent Auto 1.2 0 - 4 % [facility] Basophils Percent Auto 0.4 0 - 2 % [facility] NRBC Pct Auto 0.0 0.0 - 0.2 /100WBC [facility] Neutrophils Absolute Auto 7.8 2.0 - 8.3 x10*3/uL [facility] Imm Gran Abs Auto 0.03 0.00 - 0.03 X10*3/uL [facility] Lymphocytes Absolute Auto 2.0 1.2 - 4.9 X10*3/uL [facility] Monocytes Absolute Auto 0.7 0.1 - 1.2 X10*3/uL [facility] Eosinophils Absolute Auto 0.1 0.0 - 0.4 X10*3/uL [facility] Basophils Absolute Auto 0.0 0.0 - 0.2 X10*3/uL [facility] NRBC Abs Auto 0.000 0.0 - 0.012 X10*3/uL [facility] Blood Venous blood specimen / Unknown 07/10/2024 12:13 PM EDT 07/10/2024 12:13 PM EDT us Chelsi Reece MD LAB BLOOD ORDERABLES Final Result Performing Organization Address City/[facility]/ZIP Co de Phone Number [facility] [address] [place] [phone] * Hemoglobin A1c (07/10/2024 12:13 PM EDT) Hemoglobin A1c 5.7 <6.0 % [facility] Comment:Hemoglobin A1C Refer ence Range Adults: 4.8 - 6.0 % Non diabetic: < 6.0 % Goal: < 7.0 %Additional Action Suggested: > 8.0 %Note: Hemoglobin A1c results are invalid for patients with abnormal amounts of HbF. Blood transfusions may impact the HbA1c concentration in the patient sample. Estimated Average Glucose 117 mg/dL [facility] Comment:eAG = Estimated ave rage glucose which is %A1C expressed asaverage glucose, using the formula of the H0N-HvccevrWuctipg Glucose study (ADAG), Diabetes Care, Vol.31,#8,Nov. 2007 Blood Venous blood specimen / Unknown 07/10/2024 12:13 PM EDT 07/10/2024 12:13 PM EDT us Chelsi Reece MD LAB BLOOD ORDERABLES Final Result Performing Organization Address City/[facility]/ZIP Co de Phone Number [facility] [address] [place] [phone] * (ABNORMAL) Lipid Panel, Standard (07/10/2024 12:13 PM EDT) Triglycerides 167(H) <150 mg/dL [facility] Comment:Desirable Triglyceri de: less than 150 mg/dLBorderline High Triglyceride 150-199 mg/dLHigh Triglyceride: 200-499 mg/dLVery High Triglyceride: greater than or equal to 5OO mg/dL Cholesterol 163 <200 mg/dL [facility] Comment:Desirable Cholestero l: less than 200 mg/dLBorderline High Cholesterol: 200-239 mg/dLHigh Cholesterol: greater than 239 mg/dL LDL Cholesterol Calculated 90 <100 mg/dL [facility] Comment:Desirable LDL: less than 100 mg/dLNear Optimal/Above Optimal LDL: 110- 129 mg/dLBorderline High LDL: 130-159 mg/dLHigh LDL: 160-189 mg/dLVery High LDL: greater than or equal to 190 mg/dL HDL Cholesterol 40(L) >40 mg/dL [facility] Comment:Desirable HDL: great er than 40 mg/dL Note: This HDL assay may give artificially low results in patients with liver disease. Blood Venous blood specimen / Unknown 07/10/2024 12:13 PM EDT 07/10/2024 12:13 PM EDT us Chelsi Reece MD LAB BLOOD ORDERABLES Final Result [facility] [address] [place] [phone] * (ABNORMAL) Comprehensive Metabolic Panel (07/10/2024 12:13 PM EDT) Sodium 139 135 - 145 mmol/L [facility] Potassium 4.2 3.3 - 5.1 mmol/L [facility] Chloride 110(H) 96 - 108 mmol/L [facility] Carbon Dioxide 24 22 - 29 mmol/L [facility] Anion Gap 9(L) 12 - 20 [facility] Urea Nitrogen (BUN) 16 9 - 16 mg/dL [facility] Creatinine, Serum 0.73 0.5 - 1.4 mg/dL [facility] Estimated Glomerular Filt Rate >60 [facility] Comment:Chronic Kidney Disea se: Estimated GFR < 60 mL/min/1.59s9Qcidxp Kidney Disease: Estimated GFR < 15 mL/min/1.73m2 Glucose 96 60 - 115 mg/dL [facility] Calcium 8.8 8.4 - 10.2 mg/dL [facility] Bilirubin, Total 0.2 0.0 - 1.0 mg/dL [facility] Aspartate Amino Transferase 21 5 - 31 U/L [facility] Alanine Aminotransferase 26 0 - 31 U/L [facility] Total Protein 7.1 6.5 - 8.0 g/dL [facility] Albumin Level 3.8 3.5 - 5.0 g/dL [facility] Alkaline Phosphatase 120(H) 39 - 117 U/L [facility] Blood Venous blood specimen / Unknown 07/10/2024 12:13 PM EDT 07/10/2024 12:13 PM EDT us Chelsi Reece MD LAB BLOOD ORDERABLES Final Result [facility] [address] [place] [phone] * POCT ANIKA-14 Urine Drug Screen (06/18/2024 11:29 AM EDT) Only the most recent of2 resultswithin the time period is included. TCA, Urine Positive Oxycodone Screen, Urine Positive Urine Urine specimen obtained by clean catch procedure / Unknown 06/18/2024 11:29 AM EDT Shameka Nichols RN - 06/18/2024 11:29 AM EDT UTOX cup Lot#[id number] Exp. 11/27/25 Internal Pass Control us Mackenzie Whatley [facility] POINT OF CARE TEST ENTER/EDIT ORDERABLES Final Result * BI Mammogram Screening Tomosynthesis Bilateral (03/01/2024 10:20 AM EST) Anatomical Region Laterality Modality Breast Bilateral Mammography 03/01/2024 10:2 0 AM EST Narrative 03/12/2024 10:52 AM EST ? [facility] ? [address] ?[place] [address] ? Mammography Report ? Signed ? Patient: Jeovanny Amanda,Araceli ?MR#: [id number] ?? [id number] ? : 1965 ?Acct:[id number] ? Age/Sex: 58 / F ?ADM Date: 11/22/24 ? Loc: HO.MAMMO ? Attending Dr: Chelsi Reece MD ? Ordering Physician: Chelsi Kauffman MD ?Results: ?? 1Negative ? Date of Service: 03/01/24 ?Follow Up: 1 Year From Orig ?? inal Mammogram ? Procedure(s): MM tomosynthesis screening BI ?? Accession Number(s): [id number] ? cc: Chelsi Kauffman MD; Dc Bourne [...] ??Taty Mccartney DO ??03/12/2024 10:49 AM EST ?? RP ? Dictated By: ?Taty Mccartney DO ? Signed By: ?<Electronically signed by Taty Mccartney, DO in OV> ? 03/12/249 ? DD/ 1020 ? TD/TT: 03/01/24 1045 ? Asbestos Handler: ? Procedure Note Donotuseinterpreter, Image - 03/12/2024 Leon[place] [facility] [address] [place] [address] Mammography Report Signed Patient: Chelsi Connors DMR#: [id number] : 1965Acct:[id number] Age/Sex: 58 / FADM Date: 03/01/24 Loc: HO.MAMMO Attending Dr: Chelsi Reece MD Ordering Physician: Chelsi Kauffman MDResults: 1Negative Date of Service: 03/01/24Follow Up: 1 Year From Orig inal Mammogram Procedure(s): MM tomosynthesis screening BI Accession Number(s): [id number] cc: Chelsi Kauffman MD; Dc Bourne MD [...] Taty Mccartney DO 03/12/2024 10:49 AM EST Dictated By: Taty Mccartney DO Signed By: <Electronically signed by Taty Mccartney DO in OV> 03/12/24 1049 DD/ 1020 TD/TT: 03/01/24 1045 Asbestos Handler: us Chelsi Reece MD IMG BI PROCEDURES Fin al Result * Image-Guided Pap with Age-Based Screening??with CT/NG,??Trichomonas (07/04/2023 3:39 PM EDT) Trichomonas (NAAT) NOT DETECTED NOT DETECTED [facility] Comment:The analytical perfo rmance characteristics of thisassay have been determined by [employer]. Themodifications have not been cleared or approved bythe FDA. This assay has been validated pursuant to theCLIA regulations and is used for clinical purposes.For additional information, please refer tohttp://education.[employer]/faq/Trichomonastma(This link is being provided for information/educational purposes only.)THIS TEST WAS PERFORMED AT:[facility] [place] [phone] HANEY MD CTNG Ref Lab NOT DETECTED NOT DETECTED [facility] NG Ref Lab NOT DETECTED NOT DETECTED [facility] Pap Vial Vaginal structure / Unknown 07/04/2023 3:39 PM EDT 07/10/2023 8:55 AM EDT Narrative [facility] - 07/11/2023 8:28 PM EDT Collection Date: [id number]: Vagina us Chelsi Reece MD LAB CYTOLOGY ORDERABL ES Final Result [facility] [address] [place] [phone] * HPV mRNA E6/E7 w/Reflex to HPV Genotypes 16, 18/45 (07/04/2023 3:39 PM EDT) HPV nRNA E6/E7 Not Detected Not Detected [facility] Comment:Methodology: Transcr iption-Mediated AmplificationThis assay detects E6/E7 viral messenger RNA (mRNA) from 14high-risk HPV types (16,18,31,33,35,39,45,51,52,56,58,59,66,68).Cervical sources are required for HPV testing.If a vaginal source from a patient who has had atotal hysterectomy with removal of cervix wassubmitted, please contact the testing laboratoryfor alternative testing options.For additional information, please refer tohttp://education.[employer]/faq/CRH724n2(This link if provided for information/educational purposes only.)THIS TEST WAS PERFORMED AT:[facility] [place] [phone] HANEY MD HPV mRNA E6/E7 [facility] HPV 16 RNA [facility] HPV 18/45 RNA [facility] 07/04/2023 3:39 PM EDT 07/05/2023 2:00 PM EDT us Chelsi Reece MD LAB CYTOLOGY ORDERABL ES Final Result Performing Organization Address [facility] Co de Phone Number [facility] [address] [place] [phone] * (ABNORMAL) Hepatitis C Ab (12/21/2022 10:55 AM EDT) Hepatitis C Antibody Reactive( A) Nonreactive [facility] Comment:Presumptive evidence of antibodies to HCV. 12/21/2022 10:5 5 AM EDT 12/21/2022 10:55 AM EDT [facility] External Provider LAB BLO OD ORDERABLES Final Result Performing Organization Address City/[facility]/ZIP Co de Phone Number [facility] [address] [place] [phone] * HIV Ab/Ag ([facility] [place]) (12/21/2022 10:55 AM EDT) Pathologist [facility] HIV AB/AG Nonreactive Nonreactive [facility] Comment:HIV-1 p24 Ag and/or HIV-1/HIV-2 Ab not detected.A test result that is nonreactive does not exclude thepossibility of exposure to or infection with HIV-1 and/orHIV-2. Nonreactive results in this assay for individualswith prior exposure to HIV-1 and/or HIV-2 may be due toantigen and antibody levels that are below the limit ofdetection of this assay.The Email Data [employer]™ Interactive HIV Ag/Ab Combo assay result andsupplemental assay results should be interpreted inconjunction with the patient's clinical presentation,history and other laboratory results. If the results areinconsistent with clinical evidence, additional testing issuggested to confirm the result. 12/21/2022 10:5 5 AM EDT 12/21/2022 10:55 AM EDT us Generic External Data Provider LAB BLOOD ORDERAB LES Final Result Performing Organization Address [facility]/ZIP Co de Phone Number [facility] [address] [place] [phone] * Hm Colonoscopy (08/25/2022) Pathologist [facility] Colonoscopy Normal Normal Narrative Griselda Segal - 08/25/2022 Recommended 1 year follow up due to poor prep us Historical Provider HEALTH MAINTENANCE Final Result from Last 3 Months or Most Recently Relevant to Health Maintenance Insurance [facility] Care Teams Electrician Yard Relationship Specialty Start Date End Date Chelsi Kauffman MD [address] [place] [phone] PCP - General Family Medicine 12/20/18
--- OUTSIDE RECORDS SUMMARY | 2024-07-15 12:59 | XMS_ITS | Encounter Summary ---
Author Organization [employer] Address [address] [facility] 7t [place] [address] Care Team Providers Care Cvicu Nurse Name Role Phone Chelsi Kauffman MD Primary Care Provide r Reason for Visit * Reason Comments Med Refill Encounter Details Date Type Department Care Team ([facility] st Contact Info) Description 04/04/2023 Refill [facility] MEDICINE [address] [place], [place] [phone] Chelsi Kauffman MD 230 [place], [place] [phone] Asthma in adult, moderate persistent, uncomplicated Social [...] Description 07/16/2024 9:45 AM EDT Office Visit [facility] MEDICINE 230 [place] [address] 08/08/2024 11:00 AM EDT Office Visit [facility] ADULT DENTAL [address] [place] [address] Alireza, Nicole 230 [place] [address] 08/28/2024 9:00 AM EDT Office Visit [facility] OPTOMETRY [address] [place] [address] Rito, Kennedi, OD 230 [place] [address] 09/23/2024 11:15 AM EDT Office Visit [facility] MEDICINE [address] [place] [address] Chelsi Kauffman MD 230 [place] [address] documented as of this encounter Visit Diagnoses Diagnosis Asthma in adult, moderate persistent, uncomplicated documented in this encounter Additional Health Concerns Assessment Noted Time PHQ-9 Depression Total Score: 24 023 2:25 PM EDT documented as of this encounter Care Teams Cvicu Nurse Relationship Specialty Start Date End Date Chelsi Kauffman MD [address] [place] [address] PCP - General Family Medicine 12/20/18 documented as of this encounter
--- OUTSIDE RECORDS SUMMARY | 2024-07-15 12:59 | XMS_ITS | Encounter Summary ---
Author Organization [employer] [facility] Address [address] [facility] 7t [place] [address] Care Team Providers Care Mems Engineer Name Role Phone Chelsi Kauffman MD Primary Care Provide r Reason for Visit * Reason Comments Med Refill Encounter Details Date Type Department Care Team ([facility] st Contact Info) Description 03/16/[address] [facility] MEDICINE [address] [place] [address] Chelsi Kauffman MD 230 [place] [address] Dry eyes Social History Tobacco Use Types [...] t he electric, gas, oil or water [employer] threatened to shut off services in your [...] Description 07/16/2024 9:45 AM EDT Office Visit [facility] MEDICINE 230 [place] [address] 08/08/2024 11:00 AM EDT Office Visit [facility] ADULT DENTAL [address] [place] [address] Alireza, Nicole [address] [place] [address] 08/28/2024 9:00 AM EDT Office Visit [facility] OPTOMETRY [address] [place] [address] Rito, Kennedi, OD 230 [place] [address] 09/23/2024 11:15 AM EDT Office Visit [facility] MEDICINE [address] [place] [address] Chelsi Kauffman MD [address] [place] [address] documented as of this encounter Visit Diagnoses Diagnosis Dry eyes Unspecified tear film insufficiency documented in this encounter Additional Health Concerns Assessment Noted Time PHQ-9 Depression Total Score: 24 023 2:25 PM EDT documented as of this encounter Care Teams Mems Engineer Relationship Specialty Start Date End Date Chelsi Kauffman MD [address] [place] [address] PCP - General Family Medicine 12/20/18 documented as of this encounter
--- OUTSIDE RECORDS SUMMARY | 2024-07-15 12:59 | XMS_ITS | Encounter Summary ---
Author Organization [email or web address] [facility] Address [address] [facility] 7t [place] [address] Care Team Providers Care Chiropractic Physician Name Role Phone Chelsi Kauffman MD Primary Care Provide r Reason for Visit * Reason Comments Med Refill Encounter Details Date Type Department Care Team ([facility] st Contact Info) Description 03/08/2023 Refill [facility] MEDICINE 230 [place], [place] [phone] Chelsi Kauffman MD 230 [place], [place] [phone] Migraine without aura, not refractory Social History [...] [facility] [address] [place] [address] 08/08/2024 11:00 AM EDT Office Visit [facility] ADULT DENTAL [address] [place] [address] Alireza, Nicole [address] [place] [address] 08/28/2024 9:00 AM EDT Office Visit [facility] OPTOMETRY [address] [place] [address] Rito, Kennedi, OD [address] [place] [address] 09/23/2024 11:15 AM EDT Office Visit [facility] MEDICINE [address] [place] [address] Chelsi Kauffman MD 230 [place] [address] documented as of this encounter Visit Diagnoses Diagnosis Migraine without aura, not refractory documented in this encounter Additional Health Concerns Assessment Noted Time PHQ-9 Depression Total Score: 24 023 2:25 PM EDT documented as of this encounter Care Teams Chiropractic Physician Relationship Specialty Start Date End Date Chelsi Kauffman MD [address] [place] [address] PCP - General Family Medicine 12/20/18 documented as of this encounter
--- OUTSIDE RECORDS SUMMARY | 2024-07-15 12:59 | XMS_ITS | Encounter Summary ---
Author Organization [employer] Address 75 [facility] 7t [place] [address] Care Team Providers Care Microsoft Dynamics Consultant Name Role Phone Chelsi Kauffman MD Primary Care Provide r Reason for Visit * Reason Comments Med Refill Encounter Details Date Type Department Care Team ([facility] st Contact Info) Description 05/06/2024 Refill [facility] MEDICINE [address] [place] [address] Chelsi Kauffman MD 230 [place] [address] Mild intermittent asthma without complication; Asthma in [...] the past 12 months, has t he [employer], gas, oil or water company threatened to [...] Visit [facility] MEDICINE [address] [place] [address] 08/08/2024 11:00 AM EDT Office Visit [facility] ADULT DENTAL [address] [place] [address] Nicole Lay [address] [place] [address] 08/28/2024 9:00 AM EDT Office Visit [facility] OPTOMETRY [address] [place] [address] Kennedi Veras, OD 230 [place] [address] 09/23/2024 11:15 AM EDT Office Visit [facility] MEDICINE [address] [place] [address] Chelsi Kauffman MD [address] [place] [address] documented as of this encounter Goals Goal Patient Goal Type Associated Problems Recent Progress Patient-Stated? Author Record your blood pressure once per day Blood Pressure On track( 024 12:41 PM EDT) No Alena Cerda Blood Pressure < 140/90 Blood Pressure 134/75(2024 11:00 AM EDT) No lAena Cerda documented as of this encounter Visit Diagnoses Diagnosis Mild intermittent asthma without complication Asthma in adult, moderate persistent, uncomplicated documented in this encounter Additional Health Concerns Assessment Noted Time PHQ-9 Depression Total Score: 0 01/17/20 24 11:19 AM EDT documented as of this encounter Care Teams [employer] Consultant Relationship Specialty Start Date End Date Chelsi Kauffman MD [address] [place] [address] PCP - General Family Medicine 12/20/18 documented as of this encounter
--- OUTSIDE RECORDS SUMMARY | 2024-07-15 12:59 | XMS_ITS | Encounter Summary ---
Author Organization [employer] Address [address] [facility] [address] 7[address] [place] [address] Care Team Providers Care Installation Engineer Name Role Phone Chelsi Kauffman MD Primary Care Provide r Encounter Details Date Type Department Care Team (Late st Contact Info) Description 01/17/2023 Abstract [facility] MEDICINE [address] [place] [address] Griselda Segal Social History Tobacco Use Types [...] 9:45 AM EDT Office Visit [facility] MEDICINE [address] [place] [address] 08/08/2024 11:00 AM EDT Office Visit [facility] ADULT DENTAL [address] [place] [address] Alireza, Nicole [address] [place] [address] 08/28/2024 9:00 AM EDT Office Visit [facility] OPTOMETRY [address] [place] [address] Rito, Kennedi, OD 230 [place] [address] 09/23/2024 11:15 AM EDT Office Visit [facility] MEDICINE [address] [place] [address] Chelsi Kauffman MD 230 [place] [address] documented as of this encounter Procedures Procedure [...] documented as of this encounter Care Teams Installation Engineer Relationship Specialty Start Date End Date Chelsi Kauffman MD 230 [place] [address] PCP - General Family Medicine 12/20/18 documented as of this encounter
--- OUTSIDE RECORDS SUMMARY | 2024-07-15 13:00 | XMS_ITS | Encounter Summary ---
Author Organization [employer] Address [address] [facility] 7 [place] [address] Care Team Providers Care Edge Banding Off Bearer Name Role Phone Chelsi Kauffman MD Primary Care Provide r Reason for Visit * Reason Onset Date Comments Med Refill 05/30/2024 Encounter Details Date Type Department Care Team (Late st Contact Info) Description 05/30/2024 Refill [facility] MEDICINE 230 [place] [address] Chelsi Kauffman MD [address] [place] [address] Social History Tobacco Use Types Packs/Day Years [...] MG/0.5ML solution auto-injector To be sent to: [facility] - [place], [place] - [address] [place] [address] documented in this encounter Plan of Treatment Upcoming Encounters Date Type Department Care Team (Late st Contact Info) Description 07/16/2024 9:45 AM EDT Office Visit [facility] MEDICINE [address] [place] [address] 08/08/2024 11:00 AM EDT Office Visit [facility] ADULT DENTAL [address] [place] [address] Nicole Lay [address] [place] [address] 08/28/2024 9:00 AM EDT Office Visit [facility] OPTOMETRY [address] [place], [place] [phone] Kennedi Veras, OD 230 [place] [address] 09/23/2024 11:15 AM EDT Office Visit [facility] MEDICINE [address] [place] [address] Chelsi Kauffman MD 230 [place], [place] [phone] documented as of this encounter Goals Goal [...] documented as of this encounter Care Teams Edge Banding Off Bearer Relationship Specialty Start Date End Date Chelsi Kauffman MD 230 [place], [place] [phone] PCP - General Family Medicine 12/20/18 documented as of this encounter
== END 2024-07-15 11:17 | disposition home or self-care (01) ==
LOC: HO.HOS 10:52
PROVIDERS: PCP Family Medicine; Visit Provider Orthopaedic Surgery
DX: M17.11 Unilateral primary osteoarthritis, right knee (principal)
CPT/HCPCS: 20610; 99213

== ENCOUNTER → 2024-07-15 10:52 | Outpatient (BNVA) | payer OTHER, SELFPAY | PROVIDERS: PCP Family Medicine; Visit Provider Orthopaedic Surgery | DX: M17.11 Unilateral primary osteoarthritis, right knee (principal); E66.01 Morbid (severe) obesity due to excess calories; Z68.41 Body mass index [BMI] 40.0-44.9, adult | CPT/HCPCS: 20610; 99212; J0665; J1100; J2003 ==

== ENCOUNTER 2024-07-17 08:59 | Outpatient (AMB) | payer OTHER, SELFPAY ==
[2024-07-17 09:21] VITALS: BP 123/64; PULSE 78; BMI 40.6
--- NOTE | 2024-07-17 09:21 | A.OFFVIS_ITS ---
Vital Signs 07/17/24 09:21 Height 5 ft 6 in Weight 251 lb 12.286 oz BMI 40.6 BP 123/64 Blood Pressure Location Rt brachial Position Sitting Pulse 78 Intake Visit Reasons: follow up medication Intake Note: Chelsi presents in office today in follow up of medication. CC: Patient reports having a lot of nausea from Zepbound and would like to obtain ondansetron. Construction Specialist Required: Yes Accompanied by: Self / Same As Patient Allergies No Known Allergies [No Known Allergies*] Allergy (Verified 07/10/24 13:00) HPI HPI follow up medication: Details: Assessment & Plan (1) Acute diarrhea: Comment: Resolved with cessation of tramadol Code(s): R19.7 - Diarrhea, unspecified Category: Medical (2) Erosive esophagitis: Code(s): K22.10 - Ulcer of esophagus without bleeding Category: Medical (3) Post-cholecystectomy syndrome: Comment: on CT not borne out on biopsy aeb Code(s): K91.5 - Postcholecystectomy syndrome Category: Medical (4) Tubulovillous adenoma of colon: Comment: 09/2022= poor prep repeat in 1 year; 10/07/20 SCOPE, TVA repeat 1 year Code(s): D12.6 - Benign neoplasm of colon, unspecified Category: Medical (5) GERD (gastroesophageal reflux disease): Code(s): K21.9 - Gastro-esophageal reflux disease without esophagitis Category: Medical (6) Pre-op examination: Code(s): Z01.818 - Encounter for other preprocedural examination Category: Medical Plan MALTESE #Female family member per pt request Past Celiac studies have been negative. ? repeat scope r/t poor prep She found that the Tramadol was giving her pain, since that medication was changed she is doing better. Her stomach is doing much better and she is taking papya enzymes and a probiotic. She is moving her bowels bid and it is soft. dicyclomine 20 mg 3 times a day, esomeprazole 40 mg daily in the morning and famotidine 40 mg at night, and simethicone. She is agreeable to repeat colonoscopy. She had poor prep with PEG but did well in the past with Miralax prep She has asthma and sleep apnea and denies any cardiac problems. There are no prior problems with anesthesia or sedation. There are no infectious disease problems. She is willing to go to update her labs for anesthesia purposes. I will see her in 6 months and of course after her colonoscopy. Orders: Orders Colonoscopy - GI Use Only Today D12.6 - Benign neoplasm of colon, unspecified Medications: New bisacodyl (Dulcolax (bisacodyl)) 10 mg (2 x 5 mg) PO BEDTIME 4 tabs 0RF 2 days Refilled dicyclomine 20 mg PO TID 90 tabs 1RF esomeprazole magnesium 40 mg PO DAILY 30 caps 6RF K21.9 - Gastro-esophageal reflux disease without esophagitis famotidine 40 mg PO BEDTIME 30 tabs 6RF K21.9 - Gastro-esophageal reflux disease without esophagitis, K22.10 - Ulcer of esophagus without bleeding simethicone 180 mg PO QID 120 caps 6RF R14.0 - Abdominal distension (gaseous) Discontinued cholestyramine (with sugar) 4 gram (Questran) administer w/meal; avoid other meds within 1hr before or 4-6hr after dose Discontinued Reason: Patient Completed Course 4 grams PO BID 756 grams 6RF K91.5 - Postch EGD/COLONOSCOPY BIOPSY CORRESPONDENCE On 01/09/24 @ 13:42 Tania Cason Wrote To [facility] per OR patient didnt want to wait for her procedure as the OR was far behind. she canceld today. On 08/22/23 @ 08:38 Tania Cason Wrote To [facility] pt scheduled, instructions mailed. Tania Cason completed item. TODAYS VISIT MALTESE #Deidra Bansal Past Celiac studies have been negative. She did not clear out with the Miralax prep, and that is why she cancelled her procedure. She wants to go back to PEG which worked for her. She would like an EGD as well as she is not on Zepbound which increases her GERD, and with her hx of erosive esphagitis I think this is prudent. She continues on dicyclomine 20 mg 3 times a day, esomeprazole 40 mg daily in the morning and famotidine 40 mg at night, and simethicone. She is having nausea with her Zepbound, but it is better than when she tried Wegovy. ROV 6 mos and after procedure. 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 Trichomonal infection Screen for STD (sexually transmitted disease) Well woman exam Post covid-19 condition, unspecified TOUSSAINT (dyspnea on exertion) Urge incontinence Overactive bladder Stress incontinence Distal radius fracture, left Fracture of left distal radius Colon cancer screening Abdominal cramping Well woman exam with routine gynecological exam Subcutaneous abscess Cellulitis Urgency incontinence Microscopic hematuria Hx of fracture of wrist Hx of sleep apnea Hx of vertigo COVID GERD (gastroesophageal reflux disease) Pre-diabetes Epigastric pain Abdominal cramping Primary osteoarthritis of knees, bilateral Morbid obesity Osteoarthritis Fibromyalgia Arthritis Hypertension Surgical History History of open reduction and internal fixation (ORIF) procedure Hx of tubal ligation Hx of colonoscopy History of cholecystectomy (~2018) Family History Father Stomach cancer Brother Stomach problems Mother Diabetes Social History Household Members: Family Housing: Apartment Do you presently have visiting nurse or other home services: No Alcohol intake: current Alcohol intake frequency: holidays/special occasions only Comment: SLEEPING Patient Tobacco Use Status: Former Tobacco user Tobacco use type: Cigarette Second Hand Smoke Exposure: No Advance Directives Date on File: 01/28/20 service: No Current occupational status: unemployed Sexual orientation: Straight/Heterosexual Gender identity: Female Review of Systems Const Denies fatigue, Denies fever(s), Denies night sweats, Denies poor appetite and Denies weight loss Eyes Details: glasses Reports requires corrective lenses ENT Reports Normal hearing present, Denies dental pain, Denies dysphagia, Denies hearing loss, Denies mouth pain, Denies odynophagia, Denies throat swelling, Denies tongue swelling and Reports other (Dentition adequate) Card Reports no additional complaints Resp Reports no additional complaints GI Details: Denies abdominal pain, Denies melena, Denies bloating, Denies hematochezia, Reports constipation, Denies GI cramping, Denies dysphagia, Denies excessive flatus, Denies early satiety, Reports heartburn, Denies diarrhea, Reports nausea, Denies odynophagia, Denies vomiting and Denies hematemesis Skin/Breast Denies pruritus, Denies lesions, Denies rash and Denies jaundice Neuro Reports Normal hearing present and Denies Abnormal speech present Endo Denies fatigue Aller/Immun Denies throat swelling and Denies tongue swelling Physical Exam Vital Signs: Last Vital Signs Pulse 78 07/17/24 09:21 BP 123/64 07/17/24 09:21 BMI result Body Mass Index 40.6 Const General: cooperative, no acute distress, well developed and well groomed Nutritional Appearance: well nourished and obese Orientation/consciousness: oriented to person, oriented to place and oriented to time Limitations: language barrier HEENT Head: Yes normocephalic and Yes atraumatic Eyes General: appearance normal, both eyes and all related structures Pupils: Equal, round and reactive pupils present Neck Neck: Yes normal visual inspection and Yes no lymphadenopathy Thyroid: Thyroid normal Resp Effort & Inspection: normal respiratory effort and able to speak in complete sentences Auscultation: clear to auscultation bilaterally Cardio Rate: regular rate Rhythm: regular rhythm Heart sounds: Normal, physiologic split S2 sound present Peripheral pulses: radial pulses present and posterior tibial pulses present GI Inspection: No distended, Yes Abdominal panniculus present and Yes obesity Palpation (GI): Soft to palpation, nontender, no guarding, not rigid and No hepatosplenomegaly present Percussion: Yes normal to percussion Auscultation: normal bowel sounds Rectal Exam - Female: deferred Skin General skin exam: no rashes or lesions noted, turgor normal, skin not dry, no jaundice, No spider nevi and no striae Rashes: no rashes Nails: normal Neuro General: oriented to person, oriented to place and oriented to time Cranial nerves: Yes Equal, round and reactive pupils present and Yes Normal hearing present Speech: No Abnormal speech present Extrem General: Yes normal to inspection, No clubbing, No cyanosis and No edema Psych Appearance: grossly normal and well kempt Mental Status: mental status grossly normal Speech and movement: Normal speech and movement present Affect: normal affect Attitude: cooperative Thought process: Normal thought process present and not confabulating Thought content: Normal thought content present Insight: Fair insight present (Psych) Judgement: Fair judgement present (Psych) Assessment & Plan Assessment & Plan (1) Tubulovillous adenoma of colon: Comment: 09/2022= poor prep repeat in 1 year; 10/07/20 SCOPE, TVA repeat 1 year Code(s): D12.6 - Benign neoplasm of colon, unspecified Category: Medical (2) Post-cholecystectomy syndrome: Comment: on CT not borne out on biopsy aeb Code(s): K91.5 - Postcholecystectomy syndrome Category: Medical (3) Irritable bowel syndrome with diarrhea: Code(s): K58.0 - Irritable bowel syndrome with diarrhea Category: Medical (4) GERD (gastroesophageal reflux disease): Code(s): K21.9 - Gastro-esophageal reflux disease without esophagitis Category: Medical (5) Erosive esophagitis: Code(s): K22.10 - Ulcer of esophagus without bleeding Category: Medical Plan MALTESE #Deidra Rolf Past Celiac studies have been negative. She did not clear out with the Miralax prep, and that is why she cancelled her procedure. She wants to go back to PEG which worked for her. She would like an EGD as well as she is not on Zepbound which increases her GERD, and with her hx of erosive esphagitis I think this is prudent. She continues on dicyclomine 20 mg 3 times a day, esomeprazole 40 mg daily in the morning and famotidine 40 mg at night, and simethicone. She is having nausea with her Zepbound, but it is better than when she tried Wegovy. She asked me for nausea medicines by think it is more prudent for her to discuss this side effect with the prescriber and for them either to slow the progression of her dosing for keep her at a lower dose. ROV 6 mos and after procedure. EGD/COLONOSCOPY BIOPSY Orders: Orders EGD/[facility] Combo - GI Use Only Today D12.6 - Benign neoplasm of colon, unspe cified, K22.10 - Ulcer of esophagus without bleeding Medications: New peg 3350-electrolytes 236-22.74-6.74 -5.86 gram (Golytely) until fecal effluent is clear; do not exceed a total volume of 2,000 mL 240 mL PO Q10M 4,000 mL 0RF 1 day Z12.11 - Encounter for screening for malignant neoplasm of colon Refilled famotidine 40 mg PO BEDTIME 30 tabs 6RF K21.9 - Gastro-esophageal reflux disease without esophagitis, K22.10 - Ulcer of esophagus without bleeding bisacodyl (Dulcolax (bisacodyl)) 10 mg (2 x 5 mg) PO BEDTIME 4 tabs 0RF 2 days simethicone (Gas Relief (simethicone)) 180 mg PO QID 120 ea 6RF R14.0 - Abdominal distension (gaseous) esomeprazole magnesium 40 mg PO BEDTIME 30 caps 6RF K21.9 - Gastro-esophageal reflux disease without esophagitis dicyclomine 20 mg PO TID 90 tabs 1RF Coding Level of Care Code Est Pt Level 4 (87039) Diagnoses Tubulovillous adenoma of colon D12.6 Post-cholecystectomy syndrome K91.5 Irritable bowel syndrome with diarrhea K58.0 GERD (gastroesophageal reflux disease) K21.9 Erosive esophagitis K22.10
== END 2024-07-17 10:06 | disposition home or self-care (01) ==
LOC: HO.HGI 09:00
PROVIDERS: PCP Internal Medicine; Visit Provider Nurse Practitioner
DX: D12.6 Benign neoplasm of colon, unspecified (principal); K91.5 Postcholecystectomy syndrome; K58.0 Irritable bowel syndrome with diarrhea; K21.9 Gastro-esophageal reflux disease without esophagitis; K22.10 Ulcer of esophagus without bleeding
CPT/HCPCS: 99214

== ENCOUNTER → 2024-07-17 08:59 | Outpatient (BNVA) | payer OTHER, SELFPAY | PROVIDERS: PCP Internal Medicine; Visit Provider Nurse Practitioner | DX: K21.9 Gastro-esophageal reflux disease without esophagitis (principal); K22.10 Ulcer of esophagus without bleeding; K58.0 Irritable bowel syndrome with diarrhea; K91.5 Postcholecystectomy syndrome; D12.6 Benign neoplasm of colon, unspecified | CPT/HCPCS: 99212 ==

== ENCOUNTER 2024-08-02 16:17 | Outpatient (REF) | payer OTHER, SELFPAY ==
--- OUTSIDE RECORDS SUMMARY | 2024-08-02 16:21 | XMS_ITS | Encounter Summary ---
Author Organization [employer] Address [address] [facility] [address]t [place] [address] Care Team Providers Care Drug Enforcement Agent Name Role Phone Chelsi Kauffman MD Primary Care Provide r Reason for Visit * Reason Comments Med Refill Encounter Details Date Type Department Care Team ([facility] st Contact Info) Description 03/31/2023 Refill [facility] MEDICINE [address] [place] [address] Chelsi Kauffman MD [address] [place] [address] Dermatitis, seborrheic; Polyarthralgia Social History Tobacco Use [...] Care Team (Late st Contact Info) Description 08/08/2024 11:00 AM EDT Office Visit [facility] ADULT DENTAL [address] [place] [address] Alireza, Nicole [address] [place] [address] 08/28/2024 9:00 AM EDT Office Visit [facility] OPTOMETRY [address] [place] [address] Rito, Kennedi, OD [address] [place] [address] 09/17/2024 9:45 AM EDT Office Visit [facility] MEDICINE [address] [place] [address] 09/23/2024 11:15 AM EDT Office Visit [facility] MEDICINE [address] [place] [address] Chelsi Kauffman MD [address] [place] [address] documented as of this encounter Visit Diagnoses Diagnosis Dermatitis, seborrheic Unspecified seborrheic dermatitis Polyarthralgia Pain in joint, multiple sites documented in this encounter Additional Health Concerns Assessment Noted Time PHQ-9 Depression Total Score: 24 023 2:25 PM EDT documented as of this encounter Care Teams Drug Enforcement Agent Relationship Specialty Start Date End Date Chelsi Kauffman MD [address] [place] [address] PCP - General Family Medicine 12/20/18 documented as of this encounter
--- OUTSIDE RECORDS SUMMARY | 2024-08-02 16:21 | XMS_ITS | Encounter Summary ---
Author Organization [employer] Address 75 [facility] 7t [place] [address] Care Team Providers Care Facilities Clerk Name Role Phone Chelsi Kauffman MD Primary Care Provide r Reason for Visit * Reason Comments Med Refill Encounter Details Date Type Department Care Team ([facility] st Contact Info) Description 04/04/2023 Refill [facility] MEDICINE [address] [place] [address] Chelsi Kauffman MD 230 [place] [address] Asthma in adult, moderate persistent, uncomplicated Social [...] Description 08/08/2024 11:00 AM EDT Office Visit [facility] ADULT DENTAL 230 [place] [address] Alireza, Nicole 230 [place] [address] 08/28/2024 9:00 AM EDT Office Visit [facility] OPTOMETRY [address] [place] [address] Rito, Kennedi, OD 230 [place] [address] 09/17/2024 9:45 AM EDT Office Visit [facility] MEDICINE [address] [place] [address] 09/23/2024 11:15 AM EDT Office Visit [facility] MEDICINE [address] [place] [address] Chelsi Kauffman MD [address] [place] [address] documented as of this encounter Visit Diagnoses Diagnosis Asthma in adult, moderate persistent, uncomplicated documented in this encounter Additional Health Concerns Assessment Noted Time PHQ-9 Depression Total Score: 24 023 2:25 PM EDT documented as of this encounter Care Teams Facilities Clerk Relationship Specialty Start Date End Date Chelsi Kauffman MD [address] [place] [address] PCP - General Family Medicine 12/20/18 documented as of this encounter
--- OUTSIDE RECORDS SUMMARY | 2024-08-02 16:21 | XMS_ITS | Encounter Summary ---
Author Organization [facility] Address [address] [facility] [address] 7t [place] [address] Care Team Providers Care Information Assurance Analyst Name Role Phone Chelsi Kauffman MD Primary Care Provide r Reason for Visit * Reason Comments Med Refill Encounter Details Date Type Department Care Team ([facility] st Contact Info) Description 03/31/2023 Refill [facility] MED & PEDS [address] [place] [address] Kiana Santos, DO 230 [place] [address] Vitamin D deficiency, unspecified Social History Tobacco [...] Description 08/08/2024 11:00 AM EDT Office Visit [facility] ADULT DENTAL 230 [place] [address] Alireza, Nicole 230 [place] [address] 08/28/2024 9:00 AM EDT Office Visit [facility] OPTOMETRY [address] [place] [address] Rito, Kennedi, OD 230 [place] [address] 09/17/2024 9:45 AM EDT Office Visit [facility] MEDICINE [address] [place] [address] 09/23/2024 11:15 AM EDT Office Visit [facility] MEDICINE [address] [place] [address] Chelsi Kauffman MD [address] [place] [address] documented as of this encounter Visit Diagnoses Diagnosis Vitamin D deficiency, unspecified documented in this encounter Additional Health Concerns Assessment Noted Time PHQ-9 Depression Total Score: 24 023 2:25 PM EDT documented as of this encounter Care Teams Information Assurance Analyst Relationship Specialty Start Date End Date Chelsi Kauffman MD [address] [place] [address] PCP - General Family Medicine 12/20/18 documented as of this encounter
--- OUTSIDE RECORDS SUMMARY | 2024-08-02 16:22 | XMS_ITS | Encounter Summary ---
Author Organization [facility] Address [address] [place] [address] 7 [place] [address] Care Team Providers Care Devulcanizer Charger Name Role Phone Chelsi Kauffman MD Primary Care Provide r Reason for Visit * Reason Onset Date Comments Durable Medical Equipment 07/28/2022 Encounter Details Date Type Department Care Team ([facility] st Contact Info) Description 07/28/2022 Telephone [facility] MEDICINE 230 [place] [address] Chelsi Kauffman MD 230 [place] [address] Durable Medical Equipment Social History Tobacco Use [...] [facility] [address] [place] [address] Alireza, Nicole 230 [place] [address] 08/28/2024 9:00 AM EDT Office Visit [facility] OPTOMETRY [address] [place] [address] Rito, Kennedi, OD 230 [place] [address] 09/17/2024 9:45 AM EDT Office Visit [facility] MEDICINE 230 [place] [address] 09/23/2024 11:15 AM EDT Office Visit [facility] MEDICINE 230 [place] [address] Chelsi Kauffman MD 230 [place] [address] documented as of this encounter Visit Diagnoses Not on filedocumented in this encounter Additional Health Concerns Assessment Noted Time PHQ-9 Depression Total Score: 24 07/26/ 023 2:25 PM EDT documented as of this encounter Care Teams Devulcanizer Charger Relationship Specialty Start Date End Date Cehlsi Kauffman MD 230 [place] [address] PCP - General Family Medicine 12/20/18 documented as of this encounter
--- OUTSIDE RECORDS SUMMARY | 2024-08-02 16:22 | XMS_ITS | Encounter Summary ---
Author Organization [employer] [facility] Address [address] [place] [address] 7 [place] [address] Care Team Providers Care Health And Wellness Coordinator Name Role Phone Chelsi Kauffman MD Primary Care Provide r Encounter Details Date Type Department Care Team (Latest Contact Info) Description 11/23/2021 Abstract [facility] CONVERSIONS Dental, Provider, DDS Social History Tobacco [...] Care Team ( st Contact Info) Description 08/08/2024 11:00 AM EDT Office Visit [facility] ADULT DENTAL 230 [place] [address] Alireza Nicole 230 [place] [address] 08/28/2024 9:00 AM EDT Office Visit [facility] OPTOMETRY [address] [place] [address] Kennedi Veras, OD 230 [place] [address] 09/17/2024 9:45 AM EDT Office Visit [facility] MEDICINE 230 [place] [address] 09/23/2024 11:15 AM EDT Office Visit [facility] MEDICINE 230 [place] [address] Chelsi Kauffman MD 230 [place] [address] documented as of this encounter Visit Diagnoses Not on filedocumented in this encounter Care Teams Health And Wellness Coordinator Relationship Specialty Start Date End Date Chelis Kauffman MD [address] [place] [address] PCP - General Family Medicine 12/20/18 documented as of this encounter
--- OUTSIDE RECORDS SUMMARY | 2024-08-02 16:22 | XMS_ITS | Encounter Summary ---
Author Organization [employer] Address 75 [facility] 7 [place] [address] Care Team Providers Care Case Packer Name Role Phone Chelsi Kauffman MD Primary Care Provide r Reason for Visit * Reason Onset Date Comments Med Refill 2024 Encounter Details Date Type Department Care Team (Late st Contact Info) Description 2024 Refill [facility] MED & PEDS [address] [place] [address] Chelsi Kauffman MD 230 [place] [address] Mild intermittent asthma without complication Social History [...] encounter Miscellaneous Notes * Telephone Encounter - Luna Partida LPN - 2024 1:18 PM EDT Last seen 4.8.25 documented in this encounter Plan of Treatment Upcoming Encounters Date Type Department Care Team (Late st Contact Info) Description 08/08/2024 11:00 AM EDT Office Visit [facility] ADULT DENTAL 230 [place] [address] Alireza, Nicole 230 [place] [address] 08/28/2024 9:00 AM EDT Office Visit [facility] OPTOMETRY [address] [place] [address] Rito, Kennedi, OD 230 [place] [address] 09/17/2024 9:45 AM EDT Office Visit [facility] MEDICINE [address] [place] [address] 09/23/2024 11:15 AM EDT Office Visit [facility] MEDICINE [address] [place] [address] Chelsi Kauffman MD 230 [place] [address] documented as of this encounter Goals Goal Patient Goal Type Associated Problems Recent Progress Patient-Stated? Author Record your blood pressure once per day Blood Pressure On track( 024 12:41 PM EDT) No Alena Cerda Blood Pressure < 140/90 Blood Pressure 138/85(2024 9:17 AM EDT) No Alena Cerda documented as of this encounter Visit Diagnoses Diagnosis Mild intermittent asthma without complication documented in this encounter Additional Health Concerns Assessment Noted Time PHQ-9 Depression Total Score: 0 01/17/20 24 11:19 AM EDT documented as of this encounter Care Teams Case Packer Relationship Specialty Start Date End Date Chelsi Kauffman MD [address] [place] [address] PCP - General Family Medicine 12/20/18 documented as of this encounter
--- OUTSIDE RECORDS SUMMARY | 2024-08-02 16:22 | XMS_ITS | Encounter Summary ---
Author Organization [employer] Address 75 [facility] 7 [place] [address] Care Team Providers Care E Commerce Web Developer Name Role Phone Chelsi Kauffman MD Primary Care Provide r Reason for Visit * Reason Onset Date Comments triage 06/09/2022 Encounter Details Date Type Department Care Team ([facility] st Contact Info) Description 06/09/2022 Telephone [facility] MEDICINE 230 [place] [address] Chelsi Kauffman MD 230 [place] [address] triage Social History Tobacco Use Types Packs/Day [...] 06/09/2022 12:16 PM EST Triage call with [employer] [place] [id number] Pt reports third time with Covid. Covid [...] accepted this outcome Please contact pt at [phone] Malian Speaker documented in this encounter Plan of Treatment Upcoming Encounters Date Type Department Care Team (Late st Contact Info) Description 08/08/2024 11:00 AM EDT Office Visit [facility] ADULT DENTAL 230 [place] [address] Alireza, Nicole 230 [place] [address] 08/28/2024 9:00 AM EDT Office Visit [facility] OPTOMETRY [address] [place] [address] Kennedi Veras, OD 230 [place] [address] 09/17/2024 9:45 AM EDT Office Visit [facility] MEDICINE [address] [place] [address] 09/23/2024 11:15 AM EDT Office Visit [facility] MEDICINE [address] [place] [address] Chelsi Kauffman MD [address] [place] [address] documented as of this encounter Visit Diagnoses Not on filedocumented in this encounter Care Teams E Commerce Web Developer Relationship Specialty Start Date End Date Chelsi Kauffman MD [address] [place] [phone] PCP - General Family Medicine 12/20/18 documented as of this encounter
--- OUTSIDE RECORDS SUMMARY | 2024-08-02 16:22 | XMS_ITS | Encounter Summary ---
Author Organization [employer] Address [address] [place] [address] 7 [place] [address] Care Team Providers Care Victim Witness Administrator Name Role Phone Chelsi Kauffman MD Primary Care Provide r Reason for Visit * Reason Comments Med Refill Encounter Details Date Type Department Care Team (Late st Contact Info) Description 08/29/2022 Refill [facility] CHC MED & PEDS [address] [place] [address] Chelsi Kauffman MD 230 [place] [address] Mild intermittent asthma without complication Social History [...] Description 08/08/2024 11:00 AM EDT Office Visit [facility] ADULT DENTAL 230 [place] [address] Nicole Lay 230 [place] [address] 08/28/2024 9:00 AM EDT Office Visit [facility] OPTOMETRY [address] [place] [address] Kennedi Veras, OD 230 [place] [address] 09/17/2024 9:45 AM EDT Office Visit [facility] MEDICINE 230 [place] [address] 09/23/2024 11:15 AM EDT Office Visit [facility] MEDICINE 230 [place] [address] Chelsi Kauffman MD 230 [place], [place] [phone] documented as of this encounter Visit Diagnoses Diagnosis Mild intermittent asthma without complication documented in this encounter Additional Health Concerns Assessment Noted Time PHQ-9 Depression Total Score: 24 07/26/ 023 2:25 PM EDT documented as of this encounter Care Teams Victim Witness Administrator Relationship Specialty Start Date End Date Chelsi Kauffman MD [address] [place] [address] [phone] PCP - General Family Medicine 12/20/18 documented as of this encounter
--- OUTSIDE RECORDS SUMMARY | 2024-08-02 16:22 | XMS_ITS | Encounter Summary ---
Author Organization [employer] Address 75 [facility] 7t [place] [address] Care Team Providers Care C Python Developer Name Role Phone Chelsi Kauffman MD Primary Care Provide r Reason for Visit * Reason Comments Med Refill Encounter Details Date Type Department Care Team ([facility] st Contact Info) Description 09/14/2023 Refill [facility] MEDICINE 230 [place] [address] Chelsi Kauffman MD 230 [place] [address] Polyarthralgia Social History Tobacco Use Types Packs/Day [...] 11:00 AM EDT Office Visit [facility] ADULT DENTAL 230 [place] [address] Alireza, Nicole 230 [place] [address] 08/28/2024 9:00 AM EDT Office Visit [facility] OPTOMETRY 267 [place] [address] Rito, Kennedi, OD 230 [place] [address] 09/17/2024 9:45 AM EDT Office Visit [facility] MEDICINE 230 [place] [address] 09/23/2024 11:15 AM EDT Office Visit [facility] MEDICINE [address] [place] [address] Chelsi Kauffman MD 230 [place] [address] documented as of this encounter Goals Goal Patient Goal Type Associated Problems Recent Progress Patient-Stated? Author Record your blood pressure once per day Blood Pressure On track( 024 12:41 PM EDT) Alena Dowd Blood Pressure < 140/90 Blood Pressure 138/85(2024 9:17 AM EDT) No Alena Cerda documented as of this encounter Visit Diagnoses Diagnosis Polyarthralgia Pain in joint, multiple sites documented in this encounter Additional Health Concerns Assessment Noted Time PHQ-9 Depression Total Score: 0 04/25/19 24 9:30 AM EST documented as of this encounter Care Teams C Python Developer Relationship Specialty Start Date End Date Chelsi Kauffman MD 230 [place] [address] PCP - General Family Medicine 12/20/18 documented as of this encounter
--- OUTSIDE RECORDS SUMMARY | 2024-08-02 16:22 | XMS_ITS | Encounter Summary ---
Author Organization [employer] Address 75 [facility] 7t [place] [address] Care Team Providers Care Wharf Tender Helper Name Role Phone Chelsi Kauffman MD Primary Care Provide r Reason for Visit * Reason Comments Med Refill Encounter Details Date Type Department Care Team ([facility] st Contact Info) Description 05/09/2023 Refill [facility] MEDICINE 230 [place], [place] [phone] Chelsi Kauffman MD 230 [place] [address] Migraine without aura, not refractory Social History [...] Description 08/08/2024 11:00 AM EDT Office Visit [facility] ADULT DENTAL 230 [place] [address] Alireza, Nicole 230 [place] [address] 08/28/2024 9:00 AM EDT Office Visit [facility] OPTOMETRY [address] [place] [address] Rito, Kennedi, OD 230 [place] [address] 09/17/2024 9:45 AM EDT Office Visit [facility] MEDICINE [address] [place] [address] 09/23/2024 11:15 AM EDT Office Visit [facility] MEDICINE [address] [place] [address] Chelsi Kauffman MD [address] [place] [address] documented as of this encounter Visit Diagnoses Diagnosis Migraine without aura, not refractory documented in this encounter Additional Health Concerns Assessment Noted Time PHQ-9 Depression Total Score: 0 04/25/19 24 9:30 AM EST documented as of this encounter Care Teams Wharf Tender Helper Relationship Specialty Start Date End Date Chelsi Kauffman MD [address] [place] [address] PCP - General Family Medicine 12/20/18 documented as of this encounter
--- OUTSIDE RECORDS SUMMARY | 2024-08-02 16:22 | XMS_ITS | Encounter Summary ---
Author Organization [employer] Address [address] [facility] [address] 7t [place] [address] Care Team Providers Care Supervisor Forming And Tempering Name Role Phone Chelsi Kauffman MD Primary Care Provide r Encounter Details Date Type Department Care Team (Late st Contact Info) Description 05/06/2024 Orders Only [facility] MEDICINE 230 [place] [address] Mariana Meyer MD 230 [place] [address] Social History Tobacco Use Types Packs/Day Years [...] Description 08/08/2024 11:00 AM EDT Office Visit [facility] ADULT DENTAL 230 [place] [address] Derick Layaris 230 [place] [address] 08/28/2024 9:00 AM EDT Office Visit [facility] OPTOMETRY [address] [place] [address] Kennedi Veras, OD 230 [place] [address] 09/17/2024 9:45 AM EDT Office Visit [facility] MEDICINE [address] [place] [address] 09/23/2024 11:15 AM EDT Office Visit [facility] MEDICINE [address] [place] [address] Chelsi Kauffman MD 230 [place] [address] documented as of this encounter Goals Goal [...] as of this encounter Care Teams Supervisor Forming And Tempering Relationship Specialty Start Date End Date Chelsi Kauffman MD 230 [place] [address] PCP - General Family Medicine 12/20/18 documented as of this encounter
--- OUTSIDE RECORDS SUMMARY | 2024-08-02 16:22 | XMS_ITS | Encounter Summary ---
Author Organization [facility] Address [address] [place] [address] 7 [place] [address] Care Team Providers Care Hand Potter Name Role Phone Chelsi Kauffman MD Primary Care Provide r Reason for Visit * Reason Comments Med Refill Encounter Details Date Type Department Care Team (Late st Contact Info) Description 09/18/2022 Refill [facility] MEDICINE 230 [place] [address] Chelsi Kauffman MD 230 [place] [address] Asthma in adult, moderate persistent, uncomplicated Social [...] Description 08/08/2024 11:00 AM EDT Office Visit [facility] ADULT DENTAL [address] [place] [address] Nicole Lay [address] [place] [address] 08/28/2024 9:00 AM EDT Office Visit [facility] OPTOMETRY [address] [place] [address] Kennedi Veras, OD 230 [place] [address] 09/17/2024 9:45 AM EDT Office Visit [facility] MEDICINE [address] [place] [address] 09/23/2024 11:15 AM EDT Office Visit [facility] MEDICINE [address] [place] [address] Chelsi Kauffman MD 230 [place], [place] [phone] documented as of this encounter Visit Diagnoses Diagnosis Asthma in adult, moderate persistent, uncomplicated documented in this encounter Additional Health Concerns Assessment Noted Time PHQ-9 Depression Total Score: 24 07/26/ 023 2:25 PM EDT documented as of this encounter Care Teams Hand Potter Relationship Specialty Start Date End Date Chelsi Kauffman MD [address] [place] [address] [phone] PCP - General Family Medicine 12/20/18 documented as of this encounter
--- OUTSIDE RECORDS SUMMARY | 2024-08-02 16:22 | XMS_ITS | Encounter Summary ---
Author Organization [employer] Address [address] [place] [address] 7 [place] [address] Care Team Providers Care Appointment Scheduler Name Role Phone Chelsi Kauffman MD Primary Care Provide r Reason for Visit * Reason Comments Med Refill Encounter Details Date Type Department Care Team (Late st Contact Info) Description 08/24/2022 Refill [facility] CHC MED & PEDS [address] [place] [address] Mariana Meyer MD 230 [place] [address] Social History Tobacco Use Types Packs/Day Years [...] Upcoming Encounters Date Type Department Care Team ([facility] Contact Info) Description 08/08/2024 11:00 AM EDT Office Visit [facility] ADULT DENTAL 230 [place] [address] Alireza, Nicole [address] [place] [address] 08/28/2024 9:00 AM EDT Office Visit [facility] OPTOMETRY [address] [place] [address] Rito, Kennedi, OD [address] [place] [address] 09/17/2024 9:45 AM EDT Office Visit [facility] MEDICINE 230 [place] [address] 09/23/2024 11:15 AM EDT Office Visit [facility] MEDICINE 230 [place] [address] Chelsi Kauffman MD 230 [place] [address] documented as of this encounter Visit Diagnoses Not on filedocumented in this encounter Additional Health Concerns Assessment Noted Time PHQ-9 Depression Total Score: 24 023 2:25 PM EDT documented as of this encounter Care Teams Appointment Scheduler Relationship Specialty Start Date End Date Chelsi Kauffman MD 230 [place], [place] [phone] PCP - General Family Medicine 12/20/18 documented as of this encounter
--- OUTSIDE RECORDS SUMMARY | 2024-08-02 16:22 | XMS_ITS | Encounter Summary ---
Author Organization [employer] Address 75 [facility] 7t [place] [address] Care Team Providers Care Paint Roller Covermaker Name Role Phone Chelsi Kauffman MD Primary Care Provide r Encounter Details Date Type Department Care Team ([facility] st Contact Info) Description 03/25/2024 Telephone [facility] MEDICINE 230 [place] [address] Chelsi Kauffman MD 230 [place] [address] Social History Tobacco Use Types Packs/Day Years [...] Description 08/08/2024 11:00 AM EDT Office Visit [facility] ADULT DENTAL 230 [place] [address] Derick Layaris 230 [place] [address] 08/28/2024 9:00 AM EDT Office Visit [facility] OPTOMETRY [address] [place] [address] Kennedi Veras, OD 230 [place] [address] 09/17/2024 9:45 AM EDT Office Visit [facility] MEDICINE [address] [place] [address] 09/23/2024 11:15 AM EDT Office Visit [facility] MEDICINE [address] [place] [address] Chelsi Kauffman MD 230 [place] [address] documented as of this encounter Goals Goal [...] documented as of this encounter Care Teams Paint Roller Covermaker Relationship Specialty Start Date End Date Chelsi Kauffman MD [address] [place] [address] PCP - General Family Medicine 12/20/18 documented as of this encounter
--- OUTSIDE RECORDS SUMMARY | 2024-08-02 16:22 | XMS_ITS | Encounter Summary ---
Author Organization [employer] Address 75 [facility] 7t [place] [address] Care Team Providers Care Jewelsmith Name Role Phone Chelsi Kauffman MD Primary Care Provide r Reason for Visit * Reason Onset Date Comments Reschedule 06/13/2023 Encounter Details Date Type Department Care Team ([facility] st Contact Info) Description 06/13/2023 Telephone [facility] MEDICINE 230 [place] [address] Chelsi Kauffman MD 230 [place] [address] Reschedule Social History Tobacco Use Types Packs/Day [...] 04/07 Derm appointment. Please contact pt at [phone] documented in this encounter Plan of Treatment Upcoming Encounters Date Type Department Care Team (Late st Contact Info) Description 08/08/2024 11:00 AM EDT Office Visit [facility] ADULT DENTAL 230 [place] [address] Alireza, Nicole 230 [place] [address] 08/28/2024 9:00 AM EDT Office Visit [facility] OPTOMETRY [address] [place] [address] Kennedi Veras, OD 230 [place] [address] 09/17/2024 9:45 AM EDT Office Visit [facility] MEDICINE 230 [place] [address] 09/23/2024 11:15 AM EDT Office Visit [facility] MEDICINE 230 [place] [address] Chelsi Kauffman MD 230 [place] [address] documented as of this encounter Visit Diagnoses Not on filedocumented in this encounter Additional Health Concerns Assessment Noted Time PHQ-9 Depression Total Score: 0 04/25/19 24 9:30 AM EST documented as of this encounter Care Teams Jewelsmith Relationship Specialty Start Date End Date Chelsi Kauffman MD 230 [place] [address] PCP - General Family Medicine 12/20/18 documented as of this encounter
--- OUTSIDE RECORDS SUMMARY | 2024-08-02 16:22 | XMS_ITS | Encounter Summary ---
Author Organization [facility] Address [address] [place] [address] [address] [place] [address] Care Team Providers Care Supervisor In Charge Name Role Phone Chelsi Kauffman MD Primary Care Provide r Encounter Details Date Type Department Care Team (Latest Contact Info) Description 09/04/2020 Abstract [facility] CONVERSIONS Dental, Provider, DDS Social History [...] Description 08/08/2024 11:00 AM EDT Office Visit [facility] ADULT DENTAL [address] [place] [address] Alireza Nicole [address] [place] [address] 08/28/2024 9:00 AM EDT Office Visit [facility] OPTOMETRY [address] [place] [address] Kennedi Veras, OD [address] [place] [address] 09/17/2024 9:45 AM EDT Office Visit [facility] MEDICINE [address] [place] [address] 09/23/2024 11:15 AM EDT Office Visit [facility] MEDICINE [address] [place] [address] Chelsi Kauffman MD [address] [place] [address] documented as of this encounter Visit Diagnoses Not on filedocumented in this encounter Care Teams Supervisor In Charge Relationship Specialty Start Date End Date Chelsi Kauffman MD [address] [place] [id number] PCP - General Family Medicine 12/20/18 documented as of this encounter
--- OUTSIDE RECORDS SUMMARY | 2024-08-02 16:22 | XMS_ITS | Clinical Summary ---
Author Organization [employer] Address [address] [facility] [address] [place] [address] Care Team Providers Care Counterperson Name Role Phone Chelsi Kauffman MD Primary [...] TEST BLOOD SUGAR TWICE DAILY 100 each Active ipratropium (Atrovent) 0.06 % nasal spray [...] mL 1 Active Blood Glucose Monitoring Suppl (Instant AV [place] Lite) w/Device kitIndications:P rediabetes Use to test [...] FOR ALLERGIES 90 tablet 1 024 Active metFORMIN (Glucophage) 500 MG tabletIndication s:Prediabetes TAKE 1 TABLET BY MOUTH TWICE DAILY IN THE MORNING AND AT BEDTIME WITH FOOD 180 tablet 1 025 Active clotrimazole-bet amethasone (Lotrisone) creamIndications :Intertrigo APPLY 1/2 GRAM TOPICALLY TO AFFECTED AREA(S) TWICE DAILY FOR 28 DAILY 30 g 025 Active meclizine (Antivert) 25 MG tabletIndication [...] MOUTH EVERY MORNING 90 tablet 025 Active butalbital-aceta minophen-caffein e 50-325-40 MG [...] 025 Active DULoxetine (Cymbalta) [address] Hdez ns:Moderate [...] EVENING MEAL 60 tablet 11 025 Active Tirzepatide-Weig ht Management (Zepbound) 12.5 MG/0.5ML solution auto-injectorInd ications:Class 3 severe obesity due to excess calories with serious comorbidity and body mass index (BMI) of 40.0 to 44.9 in adult Inject 0.5 mL (12.5 mg) under the skin 1 (one) time per week. INJECT ONE PEN (=12.5 MG) SUBCUTANEOUSLY ONCE A WEEK 2 mL 025 Active oxyCODONE (Roxicodone) 5 MG immediate release tabletIndication s:Chronic midline low back pain with right-sided sciatica,Polyart hralgia TAKE 1 TABLET BY MOUTH EVERY TWELVE HOURS NEEDED FOR SEVERE PAIN 56 tablet 025 Active albuterol (Ventolin HFA) 108 (90 Base) MCG/ACT inhalerIndicatio ns:Mild intermittent asthma without complication INHALE 2 PUFFS BY MOUTH EVERY 4 TO 6 HOURS NEEDED 18 g 025 Active sulfamethoxazole -trimethoprim (Bactrim DS) 800-160 MG tablet Take 1 tablet by mouth 2 times daily for 5 days. 10 tablet 025 2024 Active carvedilol (Coreg) 6.25 MG tabletIndication s:Essential hypertension Take 1 tablet (6.25 mg) by mouth with breakfast and with evening meal. 60 tablet 11 024 2024 Discontinued(R eorder (will not trigger notification to Pharmacy)) gabapentin (Neurontin) 600 MG tabletIndication s:Chronic toe [...] BEDTIME 60 tablet 1 025 2024 Discontinued albuterol (Ventolin HFA) 108 (90 Base) MCG/ACT inhalerIndicatio ns:Mild intermittent asthma without complication INHALE 2 PUFFS BY MOUTH EVERY 4 TO 6 HOURS NEEDED 18 g 025 2024 Discontinued(R eorder (will not trigger notification to Pharmacy)) oxyCODONE (Roxicodone) 5 MG immediate release tabletIndication s:Chronic midline low back pain with right-sided sciatica,Polyart hralgia TAKE 1 TABLET BY MOUTH EVERY TWELVE HOURS NEEDED FOR SEVERE PAIN FOR UP TO 28 DAYS 56 tablet 025 2024 Discontinued Tirzepatide-Weig ht Management (Zepbound) 10 MG/0.5ML solution auto-injectorInd ications:Class 3 severe obesity due to excess calories with serious comorbidity and body mass index (BMI) of 40.0 to 44.9 in adult Inject 0.5 mL (10 mg) under the [...] lumbar anterolisthesis Rx: oxycodone 5mg BID Last MEDICAID ANALYST agreement: 04/23/24 Tier: III (Q4-6 months), Dr. Go 04/24/24 Assessment & Plan (07/16/2024 2:02 PM EDT): Timeline: - 06/08/23: pill count/utox as expected - 08/07/23: pill count/utox as expected - 01/18/24: pill count/utox as expected - 02/22/24: Group - pill count/utox as expected - 04/23/24: Group- pill count/utox as expected - 06/18/24: Group visit - pill count/utox as expected - 07/16/24: Group visit - pill count/utox as expected Assessment & Plan (06/20/2024 11:21 AM EDT): [...] evidence of acute fracture Assessment & Plan (07/16/2024 2:02 PM EDT): -Good engagement and participation with Group Medical Visit model -Encouraged multifactorial approach to pain control including pharm and non- pharm modalities -UTOX and Pill count as expected Assessment & Plan (06/20/2024 11:20 AM EDT): [...] 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 - Recommended watching YouTube videos fro stretching and exercises that can [...] Encounters Date Type Department Care Team Description 08/02/2024 9:20 AM EDT Office Visit [facility] [address] [place], [place] [phone] Lionel Pereira MD Dysuria (Primary Dx) 2024 Refill [facility] [address] [place], [place] [phone] Chelsi Kauffman MD Mild intermittent asthma without complication 07/25/2024 Refill [facility] [address], [place] [phone] Chelsi Kauffman MD Chronic midline low back pain with right-sided sciatica; Polyarthralgia 07/16/2024 9:45 AM EDT Office Visit [facility] [address] [place] [address] Mackenzie Whatley FNP Anterolisthesis of lumbar spine (Primary Dx); Long-term current use of opiate analgesic 07/16/2024 Refill [facility] [address] [place] [address] Chelsi Kauffman MD Class 3 severe obesity due to excess calories with serious comorbidity and body mass index (BMI) of 40.0 to 44.9 in adult 07/16/2024 Travel 07/07/2024 Refill [facility] [address] [place] [address] Mariana Meyer MD Moderate episode of recurrent major depressive disorder (CMS/HCC); Migraine without aura, not refractory; Chronic toe pain, left foot; HTN (hypertension), benign; Essential hypertension 07/07/2024 Refill [facility] [address] [place] [address] Chelsi Kauffman MD Essential hypertension 06/27/2024 Telephone [facility] [address] [place] [address] Chelsi Kauffman MD Durable Medical Equipment (DME Request: life alert and grab bars) 06/24/2024 Refill [facility] [address] [place] [address] Chelsi Kauffman MD Migraine without aura, not refractory 06/21/2024 11:00 AM EDT Office Visit [facility] [address] [place] [address] Chelsi Kauffman MD Class 3 severe obesity due to excess calories with serious comorbidity and body mass index (BMI) of 40.0 to 44.9 in adult (CMS/HCC) (Primary Dx); Essential hypertension; Chronic bilateral low back pain without sciatica; Unstable gait 06/21/2024 Travel 06/18/2024 9:45 AM EDT Office Visit [facility] [address] [place] [address] 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, 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, 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 Long-term current use of opiate analgesic (Primary Dx); Anterolisthesis of lumbar spine 06/18/2024 Refill [facility] [address] [facility] [place] [address] Chelsi Kauffman MD Chronic midline low back pain with right-sided sciatica; Polyarthralgia 06/18/2024 Travel 06/14/2024 Refill [facility] [address] [facility] [place] [address] Chelsi Kauffman MD Polyarthralgia 06/13/2024 Patient Outreach [facility] [address] [facility] [place] [address] Chelsi Kauffman MD Pre-visit Planning (SDOH screening negative and tobacco screening negative) 06/10/2024 Travel 06/10/2024 Telephone [facility] [address] [facility] [place] [address] Chelsi Kauffman MD Bobby and [facility] (Attend wipes) 06/06/2024 Refill [facility] [address] [facility] [place] [address] Chelsi Kauffman MD Vertigo; Hypertension, unspecified type; Preventative health care 05/31/2024 Orders Only [facility] [address] [facility] [place] [address] Chelsi Kauffman MD Nausea (Primary Dx) 05/30/2024 Orders Only [facility] [address] [facility] [place] [address] Chelsi Kauffman MD Class 3 severe obesity due to excess calories with serious comorbidity and body mass index (BMI) of 40.0 to 44.9 in adult ([facility]) (Primary Dx) 05/30/2024 Telephone [facility] [address] [place] [address] Chelsi Kauffman MD Nurse Triage 05/30/2024 Refill [facility] [address] [place] [address] Chelsi Kauffman MD 05/29/2024 Refill [facility] [address] [place] [address] Chelsi Kauffman MD Intertrigo 05/28/2024 Refill [facility] [address] [place] [address] Chelsi Kauffman MD Prediabetes 05/22/2024 Refill [facility] [address] [place] [address] Chelsi Kauffman MD Chronic midline low back pain with right-sided sciatica; Polyarthralgia 05/07/2024 Refill [facility] [address] [place] [address] Chelsi Kauffman MD Mild intermittent asthma without complication 05/06/2024 Orders Only [facility] [address] [place] [address] Mariana Meyer MD 05/06/2024 Refill [facility] [address] [place] [address] Chelsi Kauffman MD Mild intermittent asthma without complication; Asthma in adult, moderate persistent, uncomplicated 05/06/2024 Telephone [facility] [address] [place] [address] Chelsi Kauffman MD telephone call 05/05/2024 Refill [facility] [address] [place] [address] Chelsi Kauffman MD Chronic toe pain, left foot; Migraine without aura, not refractory; Moderate episode of recurrent major depressive disorder (CMS/HCC); HTN (hypertension), benign from Last 3 Months Immunizations Name Administration [...] Sign Reading Time Taken Comments Blood Pressure 138/85 08/02/2024 9:17 AM EDT Pulse 83 08/02/2024 9:17 AM EDT Temperature 36.4 ??C (97.6 ??F) 08/02/2024 9:17 AM ED T Respiratory Rate 18 08/02/2024 9:17 AM EDT Oxygen Saturation 99% 08/02/2024 9:17 AM EDT Inhaled Oxygen Concentration - - Weight 115 kg (252 lb 12.8 oz) 08/02/2024 9:17 A M EDT Height 167.6 cm (5' 6 ) 06/21/2024 11:00 AM EDT Body Mass Index 40.8 06/21/2024 11:00 AM EDT Plan of Treatment Upcoming Encounters Date Type Department Care Team (Late st Contact Info) Description 08/08/2024 11:00 AM EDT Office Visit [facility] [address] [place] [address] Alireza, Nicole [address] [place] [address] 08/28/2024 9:00 AM EDT Office Visit [facility] [address] [place] [address] Rito, Kennedi, OD [address] [place] [address] 09/17/2024 9:45 AM EDT Office Visit [facility] [address] [place] [address] 09/23/2024 11:15 AM EDT Office Visit [facility] [address] [place] [address] Chelsi Kauffman MD [address] [place] [address] Health Maintenance Due Date Last Done Comments CT Colonography 1965 FIT DNA/Cologuard 1965 FIT 1965 FOBT 1965 Sigmoidoscopy 1965 Colonoscopy 08/26/2023 08/25/2022, 10/07/2020 Colorectal Cancer Screening 08/26/2023 Dental X-Ray: Bitewings 02/26/2024 02/25/20, 11/23/2021, 09/04/2020, Additional history exists Dental Oral Exam 05/03/2024 10/31/2023, , 11/23/2021, Additional history exists Dental Prophylaxis 05/03/2024 10/31/2023, 1 04/26/2022, 11/23/2021, Additional history exists RSV Patients and Patients Aged 60 years or older (1 - Risk 60-74 years 1-dose series) 2024 Depression Screening 01/16/2025 01/17/2024, 01/17/20 Alcohol/Substance Use Screening 02/19/2025 02/20/2024 Mammogram 03/01/2025 03/01/2024, 09/08, 09/23/2021, Additional history exists SDOH Screening 06/13/2025 06/13/2024 Diabetes: Hemoglobin A1C 07/10/2025 025, 01/17/2024, 08/19/2022, Additional history exists Tobacco Screening 08/02/2025 08/02/2024 Dental X-Ray: Full Mouth 02/25/2026 02/24/2023, 12/09/2018 Cervical Cancer Screening 07/03/2028 HPV/Cotest 07/03/2028 07/04/2023 Pap Smear 07/03/2028 07/04/2023, 07/04/2023 Lipid Panel 07/10/2029 07/10/2024, 08/08, 07/28/2021, Additional history exists DTaP/Tdap/Td Vaccines (2 - Td or Tdap) 06/13/2033 06/14/2023 Pneumococcal Vaccine: 50+ Years Completed 01/18/2022 HIV [...] 138/85(2024 9:17 AM EDT) No Alena Cerda Procedures Procedure Name Priority Date/Time Associated Diagnosis Comments POCT URINALYSIS DIPSTICK Routine 08/02/2024 10:00 AM EDT Dysuria POCT ANIKA-14 URINE DRUG SCREEN Routine 07/16/2024 10:55 AM EDT Anterolisthesis of lumbar spine Long-term current use of opiate analgesic TSH W/REFLEX TO FT4 Routine 07/10/2024 1 2:13 PM EDT Class 3 severe obesity due to excess calories with serious comorbidity and body mass index (BMI) of 40.0 to 44.9 in adult VITAMIN D,25-OH,TOTAL,IA Routine 07/10/2024 12:13 PM EDT Class 3 severe obesity due to excess calories with serious comorbidity and body mass index (BMI) of 40.0 to 44.9 in adult LIPID PANEL, STANDARD Routine 07/10/2024 12:13 PM EDT Class 3 severe obesity due to excess calories with serious comorbidity and body mass index (BMI) of 40.0 to 44.9 in adult Essential hypertension HEMOGLOBIN A1C Routine 07/10/2024 12:13 PM EDT Class 3 severe obesity due to excess calories with serious comorbidity and body mass index (BMI) of 40.0 to 44.9 in adult Essential hypertension COMPREHENSIVE METABOLIC PANEL Routine 07/10/2024 12:13 PM EDT Class 3 severe obesity due to excess calories with serious comorbidity and body mass index (BMI) of 40.0 to 44.9 in adult CBC WITH AUTO DIFFERENTIAL Routine 07/10/2024 12:13 PM EDT Class 3 severe obesity due to excess calories with serious comorbidity and body mass index (BMI) of 40.0 to 44.9 in adult POCT ANIKA-14 URINE DRUG SCREEN Routine 06/18/2024 11:29 AM EDT Long-term current use of opiate analgesic BI MAMMOGRAM SCREENING [...] Recently Relevant to Health Maintenance Results * (ABNORMAL) POCT urinalysis dipstick manually resulted (08/02/2024 10:00 AM EDT) Color, UA Yellow Clarity, UA Clear Glucose, UA Negative Bilirubin, UA Few 15 Comment:Small Ketones, UA Positive Comment:Trace Spec Grav, UA 1.025 Blood, UA Positive(A) Negative, None Detected Comment:Large pH, UA 6.0 Protein, UA Few 15 Comment:>=300 mg/dL Urobilinogen, UA 0.2 Leukocytes, UA Few 15(A) Negative, Rare, Trace Comment:Small Urine 08/02/2024 10:0 0 AM EDT us Lionel Pereira MD POINT OF CARE TEST ENTER/EDIT OR DERABLES Final Result * POCT ANIKA-14 Urine Drug Screen (07/16/2024 10:55 AM EDT) Only the most recent of2 resultswithin the time period is included. TCA, Urine Positive Oxycodone Screen, Urine Positive Urine Urine specimen obtained by clean catch procedure / Unknown 07/16/2024 10:55 AM EDT us Mackenzie MIGUEL POINT OF CARE TEST ENTER/EDIT ORDERABLES Final Result * Vitamin D, 25-Hydroxy, Total, Immunoassay (07/10/2024 12:13 PM EDT) Vitamin D 25-OH Total 47.8 >30 ng/mL [facility] Comment: Health Based Reference Values*< 20 ??ng/mL ??Rocjgovxt21-10 ng/mL ??Insufficient> 30 ??ng/mL ??Sufficient*Todd ALBERT. N [...] BLOOD ORDERABLES Final Result Performing Organization Address [facility]/ZIP Co de Phone Number [facility] [address] [place] [phone] * TSH with Reflex to Free T4 (07/10/2024 12:13 PM EDT) TSH reflex Free T4 0.80 0.32 - 4.0 uIU/mL [facility] Blood Venous blood specimen / Unknown 07/10/2024 12:13 PM EDT 07/10/2024 12:13 PM EDT us Chelsi Reece MD LAB BLOOD ORDERABLES Final Result Performing Organization Address City/[facility]/ZIP Co de Phone Number [facility] [address] [place] [phone] * (ABNORMAL) CBC auto differential (07/10/2024 12:13 PM EDT) White Blood Count 10.7 4.8 - 10.8 X10*3/uL [facility] Red Blood Count 4.91 4.20 - 5.50 X10*6/uL [facility] Hemoglobin 14.0 12.0 - 16.0 g/dl [facility] Hematocrit 43.4 37.0 - 47.0 % [facility] Mean Corpuscular Volume 88.4 80.0 - 98.[address] [facility] Mean Corpuscular Hemoglobin 28.5 27.0 - 33.[address] [facility] Mean Corpuscular HGB Conc 32.3 31.0 - 35.0 g/dl [facility] Red Cell Distribution Width 13.7 11.0 - 16.0 % [facility] Platelet Count 268 160 - 400 X10*3/uL [facility] Mean Platelet Volume 11.0 9.4 - 12.[address] [facility] Neutrophils Percent Auto 73.0 45 - 73 % [facility] Imm Gran Pct Auto 0.3 0.0 - 0.4 % [facility] Lymphocytes Percent Auto 18.3(L) 20 - 40 % [facility] Monocytes Percent Auto 6.8 2 - 11 % [facility] Eosinophils Percent Auto 1.2 0 - 4 % [facility] Basophils Percent Auto 0.4 0 - 2 % [facility] NRBC Pct Auto 0.0 0.0 - 0.2 /100WBC [facility] Neutrophils Absolute Auto 7.8 2.0 - 8.3 x10*3/uL [facility] Imm Gran Abs Auto 0.03 0.00 - 0.03 X10*3/uL [facility] Lymphocytes Absolute Auto 2.0 1.2 - 4.9 X10*3/uL [facility] Monocytes Absolute Auto 0.7 0.1 - 1.2 X10*3/uL [facility] Eosinophils Absolute Auto 0.1 0.0 - 0.4 X10*3/uL [facility] Basophils Absolute Auto 0.0 0.0 - 0.2 X10*3/uL [facility] NRBC Abs Auto 0.000 0.0 - 0.012 X10*3/uL [facility] Blood Venous blood specimen / Unknown 07/10/2024 12:13 PM EDT 07/10/2024 12:13 PM EDT Chelsi Reece MD LAB BLOOD ORDERABLES Final Result Performing Organization Address City/[facility]/ZIP Co de Phone Number [facility] [address] [place] [phone] * Hemoglobin A1c (07/10/2024 12:13 PM EDT) Hemoglobin A1c 5.7 <6.0 % [facility] Comment:Hemoglobin A1C Refer ence Range Adults: 4.8 - 6.0 % Non diabetic: < 6.0 % Goal: < 7.0 %Additional Action Suggested: > 8.0 %Note: Hemoglobin A1c results are invalid for patients with abnormal amounts of HbF. Blood transfusions may impact the HbA1c concentration in the patient sample. Estimated Average Glucose 117 mg/dL [facility] Comment:eAG = Estimated ave rage glucose which is %A1C expressed asaverage glucose, using the formula of the T7H-VayromwWahvcfm Glucose study (ADAG), Diabetes Care, Vol.31,#8,Nov. 2007 Blood Venous blood specimen / Unknown 07/10/2024 12:13 PM EDT 07/10/2024 12:13 PM EDT us Chelsi Reece MD LAB BLOOD ORDERABLES Final Result Performing Organization Address City/[facility]/ZIP Co de Phone Number [facility] [address] [place] [phone] * (ABNORMAL) Lipid Panel, Standard (07/10/2024 12:13 PM EDT) Triglycerides 167(H) <150 mg/dL [facility] Comment:Desirable Triglyceri de: less than 150 mg/dLBorderline High Triglyceride 150-199 mg/dLHigh Triglyceride: 200-499 mg/dLVery High Triglyceride: greater than or equal to 5OO mg/dL Cholesterol 163 <200 mg/dL [facility] Comment:Desirable Cholestero l: less than 200 mg/dLBorderline High Cholesterol: 200-239 mg/dLHigh Cholesterol: greater than 239 mg/dL LDL Cholesterol Calculated 90 <100 mg/dL [facility] Comment:Desirable LDL: less than 100 mg/dLNear Optimal/Above Optimal LDL: 110- 129 mg/dLBorderline High LDL: 130-159 mg/dLHigh LDL: 160-189 mg/dLVery High LDL: greater than or equal to 190 mg/dL HDL Cholesterol 40(L) >40 mg/dL [facility] Comment:Desirable HDL: great er than 40 mg/dL Note: This HDL assay may give artificially low results in patients with liver disease. Blood Venous blood specimen / Unknown 07/10/2024 12:13 PM EDT 07/10/2024 12:13 PM EDT us Chelsi Reece MD LAB BLOOD ORDERABLES Final Result [facility] [address] [place] [address] [phone] * (ABNORMAL) Comprehensive Metabolic Panel (07/10/2024 12:13 PM EDT) Sodium 139 135 - 145 mmol/L [facility] Potassium 4.2 3.3 - 5.1 mmol/L [facility] Chloride 110(H) 96 - 108 mmol/L [facility] Carbon Dioxide 24 22 - 29 mmol/L [facility] Anion Gap 9(L) 12 - [address] [facility] Urea Nitrogen (BUN) 16 9 - 16 mg/dL [facility] Creatinine, Serum 0.73 0.5 - 1.4 mg/dL [facility] Estimated Glomerular Filt Rate >[address] [facility] Comment:Chronic Kidney Disea se: Estimated GFR < 60 mL/min/1.97k9Mlneol Kidney Disease: Estimated GFR < 15 mL/min/1.73m2 Glucose 96 60 - 115 mg/dL [facility] Calcium 8.8 8.4 - 10.2 mg/dL [facility] Bilirubin, Total 0.2 0.0 - 1.0 mg/dL [facility] Aspartate Amino Transferase 21 5 - 31 U/L [facility] Alanine Aminotransferase 26 0 - 31 U/L [facility] Total Protein 7.1 6.5 - 8.0 g/dL [facility] Albumin Level 3.8 3.5 - 5.0 g/dL [facility] Alkaline Phosphatase 120(H) 39 - 117 U/L [facility] Blood Venous blood specimen / Unknown 07/10/2024 12:13 PM EDT 07/10/2024 12:13 PM EDT Chelsi Reece MD LAB BLOOD ORDERABLES Final Result Performing Organization Address City/State/[facility] Co de Phone Number [facility] [address] [place] [address] [phone] * BI Mammogram Screening Tomosynthesis Bilateral (03/01/2024 10:20 AM EST) Anatomical Region Laterality Modality Breast Bilateral Mammography 03/01/2024 10:2 0 AM EST Narrative 03/12/2024 10:52 AM EST ? [facility] [place] ? [address] [facility] ?[place] [address] ? Mammography Report ? Signed ? Patient: Jeovanny Amanda,Araceli ?MR#: [id number] ?? [id number] ? : 1965 ?Acct:[id number] ? Age/Sex: 58 / F ?ADM Date: 11/22/24 ? Loc: HO.MAMMO ? Attending Dr: Chelsi Reece MD ? Ordering Physician: Chelsi Kauffman MD ?Results: ?? 1Negative ? Date of Service: 03/01/24 ?Follow Up: 1 Year From Orig ?? inal Mammogram ? Procedure(s): MM tomosynthesis screening BI ?? Accession Number(s): [id number] ? cc: Chelsi Kauffman MD; Dc Bourne [...] AM EST ?? RP ? Dictated By: ?aTty Mccartney DO ? Signed By: ?<Electronically signed by Taty Mccartney, DO in OV> ? 03/12/24 1049 ? DD/ 1020 ? TD/TT: 03/01/24 1045 ? Seamless Tube Roller: ? Procedure Note Donotuseinterpreter, Image - 03/12/2024 [place] [facility] [address] [place] [address] Mammography Report Signed Patient: Chelsi Connors DMR#: [id number] : 1965Acct:[id number] Age/Sex: 58 / FADM Date: 03/01/24 Loc: HO.MAMMO Attending Dr: Chelsi Reece MD Ordering Physician: Chelsi Kauffman MDResults: 1Negative Date of Service: 03/01/24Follow Up: 1 Year From Orig inal Mammogram Procedure(s): MM tomosynthesis screening BI Accession Number(s): [id number] cc: Chelsi Kauffman MD; Dc Bourne MD [...] 03/12/24 1049 DD/ 1020 TD/TT: 03/01/24 1045 Seamless Tube Roller: us Chelsi Reece MD IMG BI PROCEDURES Fin al Result * Image-Guided Pap with Age-Based Screening??with CT/NG,??Trichomonas (07/04/2023 3:39 PM EDT) Trichomonas (NAAT) NOT DETECTED NOT DETECTED [facility] Comment:The analytical perfo rmance characteristics of thisassay have been determined by [employer]. Themodifications have not been cleared or approved bythe FDA. This assay has been validated pursuant to theCLIA regulations and is used for clinical purposes.For additional information, please refer tohttp://education.Diabetes America/faq/Trichomonastma(This link is being provided for information/educational purposes only.)THIS TEST WAS PERFORMED AT:[facility] [place] [phone] HANEY MD CTNG Ref Lab NOT DETECTED NOT DETECTED [facility] NG Ref Lab NOT DETECTED NOT DETECTED [facility] Pap Vial Vaginal structure / Unknown 07/04/2023 3:39 PM EDT 07/10/2023 8:55 AM EDT Narrative [facility] - 07/11/2023 8:28 PM EDT Collection Date: [id number]: Vagina us Chelsi Reece MD LAB CYTOLOGY ORDERABL ES Final Result [facility] [address] [place] [phone] * HPV mRNA E6/E7 w/Reflex to HPV Genotypes 16, 18/45 (07/04/2023 3:39 PM EDT) HPV nRNA E6/E7 Not Detected Not Detected [facility] Comment:Methodology: Transcr iption-Mediated AmplificationThis assay detects E6/E7 viral messenger RNA (mRNA) from 14high-risk HPV types (16,18,31,33,35,39,45,51,52,56,58,59,66,68).Cervical sources are required for HPV testing.If a vaginal source from a patient who has had atotal hysterectomy with removal of cervix wassubmitted, please contact the testing laboratoryfor alternative testing options.For additional information, please refer tohttp://education.Diabetes America/faq/COW639r8(This link if provided for information/educational purposes only.)THIS TEST WAS PERFORMED AT:[facility] [place] [phone] HANEY MD HPV mRNA E6/E7 [facility] HPV 16 RNA [facility] HPV 18/45 RNA [facility] 07/04/2023 3:39 PM EDT 07/05/2023 2:00 PM EDT Chelsi Reece MD LAB CYTOLOGY ORDERABL ES Final Result Performing Organization Address [facility]/ZIP Co de Phone Number [facility] [address] [place] [phone] * (ABNORMAL) Hepatitis C Ab (12/21/2022 10:55 AM EDT) Pathologist [facility] [place] Hepatitis C Antibody Reactive( A) Nonreactive [facility] Comment:Presumptive evidence of antibodies to HCV. 12/21/2022 10:5 5 AM EDT 12/21/2022 10:55 AM EDT [facility] External Provider LAB BLO OD ORDERABLES Final Result Performing Organization Address [facility]/ZIP Co de Phone Number [facility] [address] [place] [phone] * HIV Ab/Ag ([place]) (12/21/2022 10:55 AM EDT) HIV AB/AG Nonreactive Nonreactive [facility] Comment:HIV-1 p24 Ag and/or HIV-1/HIV-2 Ab not detected.A test result that is nonreactive does not exclude thepossibility of exposure to or infection with HIV-1 and/orHIV-2. Nonreactive results in this assay for individualswith prior exposure to HIV-1 and/or HIV-2 may be due toantigen and antibody levels that are below the limit ofdetection of this assay.The [employer] HIV Ag/Ab Combo assay result andsupplemental assay results should be interpreted inconjunction with the patient's clinical presentation,history and other laboratory results. If the results areinconsistent with clinical evidence, additional testing issuggested to confirm the result. 12/21/2022 10:5 5 AM EDT 12/21/2022 10:55 AM EDT us Generic External Data Provider LAB BLOOD ORDERAB LES Final Result [facility] [address] [place] [address] [phone] * Colonoscopy (08/25/2022) Colonoscopy Normal Normal Narrative Griselda Segal - 08/25/2022 Recommended 1 year follow up due to poor prep Historical Provider HEALTH MAINTENANCE Final Result from Last 3 Months or Most Recently Relevant to Health Maintenance Insurance [facility] ONE CARE Member Subscriber Plan / Payer (Ef fective 2021-Present) Name:Chelsi Connors Relation to Subscriber:Self Name:Chelsi Connors Payer ID:Not on file Group ID:[id number] Type:Not on file Address: [address] ONE CARE < 65 DENTAL [facility] Care Teams Counterperson Relationship Specialty Start Date End Date Chelsi Kauffman MD [address] [place] [phone] PCP - General Family Medicine 12/20/18
--- OUTSIDE RECORDS SUMMARY | 2024-08-02 16:22 | XMS_ITS | Encounter Summary ---
Author Organization [employer] Address [address] [facility] 7t [place] [address] Care Team Providers Care Owner Manager Name Role Phone Chelsi Kauffman MD Primary Care Provide r Reason for Visit * Reason Comments Med Refill Encounter Details Date Type Department Care Team ([facility] st Contact Info) Description 11/10/2023 Refill [facility] [address] [place] [address] Chelsi Kauffman MD [address] [place] [address] Chronic toe pain, left foot Social History [...] Description 08/08/2024 11:00 AM EDT Office Visit [facility] [address] [place] [address] Alireza, Nicole [address] [place] [address] 08/28/2024 9:00 AM EDT Office Visit [facility] [address] [place] [address] Rito, Kennedi, OD 230 [place] [address] 09/17/2024 9:45 AM EDT Office Visit [facility] [address] [place] [address] 09/23/2024 11:15 AM EDT Office Visit [facility] [address] [place] [address] Chelsi Kauffman MD [address] [place] [address] documented as of this encounter Goals Goal Patient Goal Type Associated Problems Recent Progress Patient-Stated? Author Record your blood pressure once per day Blood Pressure On track( 024 12:41 PM EDT) Alena Dowd Blood Pressure < 140/90 Blood Pressure 138/85(2024 9:17 AM EDT) No Cardaropoli, Carvajal documented as of this encounter Visit Diagnoses Diagnosis Chronic toe pain, left foot documented in this encounter Additional Health Concerns Assessment Noted Time PHQ-9 Depression Total Score: 0 04/25/19 24 9:30 AM EST documented as of this encounter Care Teams Owner Manager Relationship Specialty Start Date End Date Chelsi Kauffman MD [address] [place] [address] PCP - General Family Medicine 12/20/18 documented as of this encounter
--- OUTSIDE RECORDS SUMMARY | 2024-08-02 16:22 | XMS_ITS | Encounter Summary ---
Author Organization [employer] Address 75 [facility] 7t [place] [address] Care Team Providers Care Institution Librarian Name Role Phone Chelsi Kauffman MD Primary Care Provide r Reason for Visit * Reason Comments uti symptoms Encounter Details Date Type Department Care Team ([facility] st Contact Info) Description 08/02/2024 9:20 AM EDT Office Visit [facility] [address] [place] [address] Lionel Pereira MD [address] [place] [address] Dysuria (Primary Dx) Social History Tobacco Use Types [...] AM EDT documented as of this encounter Last Filed Vital Signs Vital Sign Reading [...] oz) 08/02/2024 9:17 A M EDT Height - - Body Mass Index 40.8 06/21/2024 11:00 AM EDT documented in this encounter Progress Notes * Lionel Pereira MD - 08/02/2024 9:20 AM EDT Subjective Patient ID: Chlesi Amanda is a 59 y.o. female. 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 HPI Chelsi had onset yesterday of burning on urination, urgency, frequency, hematuria. Denies fever, chills, n/v, vaginal discharge, abdominal or flank pain. Lives with son. Not employed. Never smoked. Patient Active Problem List Diagnosis Allergic conjunctivitis Chronic toe pain, left foot Disorder of skin color Essential hypertension Hand pain Pain in finger Hearing loss Migraine without aura, not refractory Mild intermittent asthma Mild persistent asthma Obstructive sleep apnea syndrome Palpitations Prediabetes Primary osteoarthritis of both knees Primary osteoarthritis of right knee Vertigo Vitreo-retinal adhesions Chorioretinal scars, bilateral Post-COVID syndrome Dry eyes Intertrigo Anxiety Dermatitis, seborrheic Polyarthralgia Unstable gait Anterolisthesis of lumbar spine Encounter for cervical Pap smear with pelvic exam Mixed stress and urge urinary incontinence Other irritable bowel syndrome Irritable bowel syndrome with both constipation and diarrhea Tipped teeth Teeth missing Dental caries Dental plaque Periodontal disease Abdominal bloating Abdominal cramping Acute diarrhea Arthritis of carpometacarpal (CMC) joint of left thumb Asthma Carpal tunnel syndrome of right wrist Colitis TOUSSAINT (dyspnea on exertion) Environmental allergies Erosive esophagitis Fracture of distal end of radius GERD (gastroesophageal reflux disease) Hepatitis C antibody positive in blood Hidradenitis suppurativa Intrinsic sphincter deficiency (ISD) Overactive bladder Post-cholecystectomy syndrome Pre-op examination Rotator cuff impingement syndrome 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 Trichomonal infection Tubulovillous adenoma of colon Urinary urgency Obese Screen for STD (sexually transmitted disease) Well woman exam YOLA (stress urinary incontinence, female) GABRIELA (obstructive sleep apnea) Post covid-19 condition, unspecified Class 3 severe obesity due to excess calories with serious comorbidity and body mass index (BMI) of40.0 to 44.9 in adult Screening mammogram for breast cancer Long-term current use of opiate analgesic Ear pain, bilateral Chronic bilateral low back pain without sciatica The following portions of the chart were reviewed this encounter and updated as appropriate: Tobacco Allergies Meds Problems Med Hx Surg Hx Fam Hx Review of Systems Constitutional: Negative for fever. Respiratory: Negative for shortness of breath. Cardiovascular: Negative for chest pain. Gastrointestinal: Negative for abdominal pain. Genitourinary: Positive for dysuria, frequency, hematuria and urgency. Negative for flank pain. Skin: Negative for rash. Neurological: Negative for headaches. Objective Physical Exam Constitutional: Appearance: Normal appearance. HENT: Nose: Nose normal. Mouth/Throat: Mouth: Mucous membranes are moist. Pharynx: Oropharynx is clear. Eyes: Conjunctiva/sclera: Conjunctivae normal. Pupils: Pupils are equal, round, and reactive to light. Cardiovascular: Rate and Rhythm: Normal rate and regular rhythm. Heart sounds: No murmur heard. Pulmonary: Effort: Pulmonary effort is normal. Breath sounds: Normal breath sounds. Abdominal: Tenderness: There is no right CVA tenderness or left CVA tenderness. Musculoskeletal: General: Normal range of motion. Cervical back: No tenderness. Skin: Findings: No rash. Neurological: Mental Status: She is alert. Gait: Gait is intact. Psychiatric: Mood and Affect: Mood normal. Behavior: Behavior normal. Procedures Assessment/Plan Diagnoses and all orders for this visit: Dysuria Urine culture and sensitivity pending. Prescribed Bactrim DS. Return to clinic if not improving. Other orders - sulfamethoxazole-trimethoprim (Bactrim DS) 800-160 MG tablet; Take 1 tablet by mouth 2 times daily for 5 days. documented in this encounter Plan of Treatment Upcoming Encounters Date Type Department Care Team (Late st Contact Info) Description 08/08/2024 11:00 AM EDT Office Visit [facility] [address] [place] [address] Alireza, Nicole [address] [place] [address] 08/28/2024 9:00 AM EDT Office Visit [facility] [address] [place] [address] Rito, Kennedi, OD [address] [place] [address] 09/17/2024 9:45 AM EDT Office Visit [facility] [address] [place] [address] 09/23/2024 11:15 AM EDT Office Visit [facility] [address] [place] [address] Chelsi Kauffman MD [address] [place] [address] Scheduled Orders Name Type Priority Associated Diagnoses Orde r Schedule Culture, Urine, Routine Microbiology Routine Dysuria Ordered: 08/02/2024 documented as of this encounter Goals Goal Patient Goal Type Associated Problems Recent Progress Patient-Stated? Author Record your blood pressure once per day Blood Pressure On track( 024 12:41 PM EDT) No Alena Cerda Blood Pressure < 140/90 Blood Pressure 138/85(2024 9:17 AM EDT) No Alena Cerda documented as of this encounter Procedures Procedure Name Priority Date/Time Associated Diagnosis Comments POCT URINALYSIS DIPSTICK Routine 08/02/2024 10:00 AM EDT Dysuria documented in this encounter Results * (ABNORMAL) POCT urinalysis dipstick manually [...] Comment:Small Urine 08/02/2024 10:0 0 AM EDT Lionel Pereira MD POINT OF CARE TEST ENTER/EDIT OR DERABLES Final Result documented in this encounter Visit Diagnoses Diagnosis Dysuria- Primary documented in this encounter Additional Health Concerns Assessment Noted Time PHQ-9 Depression Total Score: 0 01/17/20 24 11:19 AM EDT documented as of this encounter Care Teams Institution Librarian Relationship Specialty Start Date End Date Chelsi Kauffman MD [address] [place] [address] PCP - General Family Medicine 12/20/18 documented as of this encounter
--- OUTSIDE RECORDS SUMMARY | 2024-08-02 16:22 | XMS_ITS | Encounter Summary ---
Author Organization [employer] Address [address] [place] [address] 7 [place] [address] Care Team Providers Care Campaign Marketing Specialist Name Role Phone Chelsi Kauffman MD Primary Care Provide r Reason for Visit * Reason Onset Date Comments Med Refill 05/30/2024 Encounter Details Date Type Department Care Team (Late st Contact Info) Description 05/30/2024 Refill [facility] [address] [place] [address] Chelsi Kauffman MD [address] [place] [address] Social History Tobacco Use Types Packs/Day Years [...] solution auto-injector To be sent to: [facility] [place], [place] - [address] [place] [address] documented in this encounter Plan of Treatment Upcoming Encounters Date Type Department Care Team (Late st Contact Info) Description 08/08/2024 11:00 AM EDT Office Visit [facility] [address] [place] [address] Alireza Nicole [address] [place] [address] 08/28/2024 9:00 AM EDT Office Visit [facility] [address] [place] [address] Kennedi Veras, OD [address] [place] [address] 09/17/2024 9:45 AM EDT Office Visit [facility] [place], [place] [phone] 09/23/2024 11:15 AM EDT Office Visit [facility] [address] [place] [address] Chelsi Kauffman MD [address] [place] [address] documented as of this encounter Goals Goal [...] documented as of this encounter Care Teams Campaign Marketing Specialist Relationship Specialty Start Date End Date Chelsi [place] [address] PCP - General Family Medicine 12/20/18 documented as of this encounter
--- OUTSIDE RECORDS SUMMARY | 2024-08-02 16:22 | XMS_ITS | Encounter Summary ---
Author Organization [employer] Address 75 [facility] 7t [place] [address] Care Team Providers Care Unscrambler Name Role Phone Chelsi Kauffman MD Primary Care Provide r Reason for Visit * Reason Comments Med Refill Encounter Details Date Type Department Care Team ([facility] st Contact Info) Description 05/06/2024 Refill [facility] [address] [place] [address] Chelsi Kauffman MD [address] [place] [address] Mild intermittent asthma without complication; Asthma in [...] the past 12 months, has t he [employer], gas, oil or water company threatened to [...] Description 08/08/2024 11:00 AM EDT Office Visit [facility] [address] [place] [address] Alireza, Nicole [address] [place] [address] 08/28/2024 9:00 AM EDT Office Visit [facility] [address] [place] [address] Rito, Kennedi, OD [address] [place] [address] 09/17/2024 9:45 AM EDT Office Visit [facility] [address] [place] [address] 09/23/2024 11:15 AM EDT Office Visit [facility] [address] [place] [address] Chelsi Kauffman MD [address] [place], [place] [phone] documented as of this encounter Goals Goal [...] documented as of this encounter Care Teams Unscrambler Relationship Specialty Start Date End Date Chelsi Kauffman MD [address] [place] [address] PCP - General Family Medicine 12/20/18 documented as of this encounter
--- OUTSIDE RECORDS SUMMARY | 2024-08-02 16:22 | XMS_ITS | Encounter Summary ---
Author Organization [employer] Address 75 [facility] 7t [place] [address] Care Team Providers Care Industrial Sweeper Cleaner Name Role Phone Chelsi Kauffman MD Primary Care Provide r Encounter Details Date Type Department Care Team (Late st Contact Info) Description 01/17/2023 Abstract [facility] [address] [place] [address] Griselda Segal Social History Tobacco Use Types [...] Description 08/08/2024 11:00 AM EDT Office Visit [facility] [address] [place] [address] Alireza, Nicole [address] [place] [address] 08/28/2024 9:00 AM EDT Office Visit [facility] [address] [place] [address] Rito, Kennedi, OD [address] [place] [address] 09/17/2024 9:45 AM EDT Office Visit [facility] [address] [place] [address] 09/23/2024 11:15 AM EDT Office Visit [facility] [address] [place] [address] Chelsi Kauffman MD [address] [place] [address] documented as of this encounter Procedures Procedure Name Priority Date/Time Associated Diagnosis Comments COLONOSCOPY Routine 08/25/2022 documented in this encounter Results * Colonoscopy (08/25/2022) Colonoscopy Normal Normal Narrative Griselda Segal - 08/25/2022 Recommended 1 year follow up due to poor prep us Historical Provider HEALTH MAINTENANCE Final Result documented in this encounter Visit Diagnoses Not on filedocumented in this encounter Additional Health Concerns Assessment Noted Time PHQ-9 Depression Total Score: 24 023 2:25 PM EDT documented as of this encounter Care Teams Industrial Sweeper Cleaner Relationship Specialty Start Date End Date Chelsi Kauffman MD [address] [place] [address] PCP - General Family Medicine 12/20/18 documented as of this encounter
--- OUTSIDE RECORDS SUMMARY | 2024-08-02 16:22 | XMS_ITS | Encounter Summary ---
Author Organization [employer] Address 75 [facility] 7t [place] [address] Care Team Providers Care Cafeteria Or Lunchroom Checker Name Role Phone Chelsi Kauffman MD Primary Care Provide r Reason for Visit * Reason Comments Med Refill Encounter Details Date Type Department Care Team ([facility] st Contact Info) Description 03/08/2023 Refill [facility] [address] [place] [address] Chelsi Kauffman MD [address] [place] [address] Migraine without aura, not refractory Social History [...] 08/08/2024 11:00 AM EDT Office Visit [facility] [address] [place] [address] Alireza, Nicole [address] [place] [address] 08/28/2024 9:00 AM EDT Office Visit [facility] [address] [place] [address] Rito, Kennedi, OD [address] [place] [address] 09/17/2024 9:45 AM EDT Office Visit [facility] [address] [place] [address] 09/23/2024 11:15 AM EDT Office Visit [facility] [address] [place] [address] Chelsi Kauffman MD [address] [place] [address] documented as of this encounter Visit Diagnoses Diagnosis Migraine without aura, not refractory documented in this encounter Additional Health Concerns Assessment Noted Time PHQ-9 Depression Total Score: 24 023 2:25 PM EDT documented as of this encounter Care Teams Cafeteria Or Lunchroom Checker Relationship Specialty Start Date End Date Chelsi Kauffman MD [address] [place] [address] PCP - General Family Medicine 12/20/18 documented as of this encounter
--- OUTSIDE RECORDS SUMMARY | 2024-08-02 16:22 | XMS_ITS | Encounter Summary ---
Author Organization [employer] Address [address] [place] [address] 7 [place] [address] Care Team Providers Care Seo Executive Name Role Phone Chelsi Kauffman MD Primary Care Provide r Reason for Referral * Consultation (Routine) - Closed Specialty Diagnoses / Procedures Referred By Contac t Referred To Contact Physical Therapy Diagnoses Benign paroxysmal vertigo, unspecified laterality Christine Laurent MD [address] [place] [address] Phone: tel: fax: [facility] [address] [place] [address] Phone: tel: fax: Referral ID Status Reason Start Date Expiration Date V isits Requested Visits Authorized [id number] Closed Specialty Services Required 04/26/2024 04/26/2025 1 1 Encounter Details Date Type Department Care Team (Late st Contact Info) Description 04/26/2024 Orders Only [facility] [address] [place] [phone] Christine Laurent MD [address] [place], [place] [phone] Benign paroxysmal vertigo, unspecified laterality (Primary Dx) [...] Description 08/08/2024 11:00 AM EDT Office Visit [facility] AD[facility] [address] [place] [address] Nicole Lay [address] [place] [address] 08/28/2024 9:00 AM EDT Office Visit [facility] OPT[facility] [address] [place] [address] Kennedi Veras, OD [address] [place] [address] 09/17/2024 9:45 AM EDT Office Visit [facility] [address] [place], [place] [phone] 09/23/2024 11:15 AM EDT Office Visit [facility] [address] [place] [address] Chelsi Kauffman MD [address] [place], [place] [phone] Scheduled Referrals Name Type Priority Associated Diagnoses [...] documented as of this encounter Care Teams Seo Executive Relationship Specialty Start Date End Date Chelsi Kauffman MD [address] [place], [place] [phone] PCP - General Family Medicine 12/20/18 documented as of this encounter
--- OUTSIDE RECORDS SUMMARY | 2024-08-02 16:22 | XMS_ITS | Encounter Summary ---
Author Organization [employer] [facility] Address [address] [facility] 7t [place] [address] Care Team Providers Care Adjunct Political Science Instructor Name Role Phone Chelsi Kauffman MD Primary Care Provide r Reason for Visit * Reason Comments Med Refill Encounter Details Date Type Department Care Team ([facility] st Contact Info) Description 03/16/2023 Refill [facility] [address] [place] [address] Chelsi Kauffman MD [address] [place] [address] Dry eyes Social History Tobacco Use Types [...] t he electric, gas, oil or water [employer] threatened to shut off services in your [...] Description 08/08/2024 11:00 AM EDT Office Visit [facility] [address] [place] [address] Alireza, Nicole [address] [place] [address] 08/28/2024 9:00 AM EDT Office Visit [facility] [address] [place] [address] Rito, Kennedi, OD [address] [place] [address] 09/17/2024 9:45 AM EDT Office Visit [facility] [address] [place] [address] 09/23/2024 11:15 AM EDT Office Visit [facility] [address] [place] [address] Chelsi Kauffman MD [address] [place] [address] documented as of this encounter Visit Diagnoses Diagnosis Dry eyes Unspecified tear film insufficiency documented in this encounter Additional Health Concerns Assessment Noted Time PHQ-9 Depression Total Score: 24 023 2:25 PM EDT documented as of this encounter Care Teams Adjunct Political Science Instructor Relationship Specialty Start Date End Date Chelsi Kauffman MD [address] [place] [phone] PCP - General Family Medicine 12/20/18 documented as of this encounter
== END 2024-08-02 16:18 | disposition home or self-care (01) ==
LOC: HO.HHCLNP 16:17
PROVIDERS: Visit Provider Emergency Medicine
DX: R30.0 Dysuria (principal)
CPT/HCPCS: 87086; 87088; 87186

== ENCOUNTER 2024-08-26 08:17 | Outpatient (REF) | payer OTHER, SELFPAY ==
--- OUTSIDE RECORDS SUMMARY | 2024-08-26 12:25 | XMS_ITS | Encounter Summary ---
Author Organization [employer] Address [address] [facility] 7 [place] [address] Care Team Providers Care Finished Garment Inspector Name Role Phone Chelsi Kauffman MD Primary Care Provide r Reason for Visit * Reason Comments Med Refill Encounter Details Date Type Department Care Team ([facility] Contact Info) Description 03/08/2023 Refill [facility] MEDICINE [address] [place] [address] Chelsi Kauffman MD [address] [place] [address] Migraine without aura, not refractory Social History [...] 08/28/2024 9:00 AM EDT Office Visit [facility] OPTOMETRY [address] [place] [address] RitoKennedi blandon, OD [address] [place] [address] 09/17/2024 9:45 AM EDT Office Visit [facility] MEDICINE [address] [place] [address] 09/23/2024 11:15 AM EDT Office Visit [facility] MEDICINE [address] [place] [address] Chelsi Kauffman MD [address] [place] [address] 09/24/2024 9:00 AM EDT Office Visit [facility] ADULT DENTAL [address] [place] [address] Aries Carolina DDS [address] [place] [address] documented as of this encounter Visit Diagnoses Diagnosis Migraine without aura, not refractory documented in this encounter Additional Health Concerns Assessment Noted Time PHQ-9 Depression Total Score: 24 023 2:25 PM EDT documented as of this encounter Care Teams Finished Garment Inspector Relationship Specialty Start Date End Date Chelsi Kauffman MD [address] [place] [address] PCP - General Family Medicine 12/20/18 documented as of this encounter
--- OUTSIDE RECORDS SUMMARY | 2024-08-26 12:25 | XMS_ITS | Encounter Summary ---
Author Organization [employer] Address [address] [place] [address] [address] [place] [address] Care Team Providers Care Nuclear Monitoring Technician Name Role Phone Chelsi Kauffman MD Primary Care Provide r Encounter Details Date Type Department Care Team (Latest Contact Info) Description 11/23/2021 Abstract [facility] CONVERSIONS Dental, Provider, DDS Social History Tobacco [...] Description 08/28/2024 9:00 AM EDT Office Visit [facility] OPTOMETRY [address] [place] [address] Kennedi Veras, OD [address] [place] [address] 09/17/2024 9:45 AM EDT Office Visit [facility] MEDICINE [address] [place] [address] 09/23/2024 11:15 AM EDT Office Visit [facility] MEDICINE [address] [place] [address] Chelsi Kauffman MD [address] [place] [address] 09/24/2024 9:00 AM EDT Office Visit [facility] ADULT DENTAL [address] [place] [address] Aries Carolina DDS [address] [place] [address] documented as of this encounter Visit Diagnoses Not on filedocumented in this encounter Care Teams Nuclear Monitoring Technician Relationship Specialty Start Date End Date Chelsi Kauffman MD [address] [place] [address] PCP - General Family Medicine 12/20/18 documented as of this encounter
--- OUTSIDE RECORDS SUMMARY | 2024-08-26 12:25 | XMS_ITS | Encounter Summary ---
Author Organization [employer] Address [address] [facility] 7t [place] [address] Care Team Providers Care Advanced Solutions Architect Name Role Phone Chelsi Kauffman MD Primary Care Provide r Reason for Visit * Reason Comments Med Refill Encounter Details Date Type Department Care Team ([facility] Contact Info) Description 04/04/2023 Refill [facility] MEDICINE [address] [place] [address] Chelsi Kauffman MD [address] [place] [address] Asthma in adult, moderate persistent, uncomplicated Social [...] Description 08/28/2024 9:00 AM EDT Office Visit [facility] OPTOMETRY [address] [place] [address] Kennedi Veras, OD [address] [place] [address] 09/17/2024 9:45 AM EDT Office Visit [facility] MEDICINE [address] [place] [address] 09/23/2024 11:15 AM EDT Office Visit [facility] MEDICINE [address] [place] [address] Chelsi Kauffman MD [address] [place] [address] 09/24/2024 9:00 AM EDT Office Visit [facility] ADULT DENTAL [address] [place] [address] Aries Carolina DDS [address] [place] [address] documented as of this encounter Visit Diagnoses Diagnosis Asthma in adult, moderate persistent, uncomplicated documented in this encounter Additional Health Concerns Assessment Noted Time PHQ-9 Depression Total Score: 24 023 2:25 PM EDT documented as of this encounter Care Teams Advanced Solutions Architect Relationship Specialty Start Date End Date Chelsi Kauffman MD [address] [place] [address] PCP - General Family Medicine 12/20/18 documented as of this encounter
--- OUTSIDE RECORDS SUMMARY | 2024-08-26 12:25 | XMS_ITS | Encounter Summary ---
Author Organization [employer] Address [address] [place] [address] 7 [place] [address] Care Team Providers Care Human Resources Advisor Name Role Phone Chelsi Kauffman MD Primary Care Provide r Encounter Details Date Type Department Care Team (Latest Contact Info) Description 09/04/2020 Abstract [facility] CONVERSIONS Dental, Provider, DDS Social [...] Description 08/28/2024 9:00 AM EDT Office Visit [facility] OPTOMETRY [address] [place] [address] Kennedi Veras, OD [address] [place] [address] 09/17/2024 9:45 AM EDT Office Visit [facility] MEDICINE [address] [place] [address] 09/23/2024 11:15 AM EDT Office Visit [facility] MEDICINE [address] [place] [address] Chelsi Kauffman MD [address] [place] [address] 09/24/2024 9:00 AM EDT Office Visit [facility] ADULT DENTAL [address] [place] [address] Aries Carolina DDS [address] [place] [address] documented as of this encounter Visit Diagnoses Not on filedocumented in this encounter Care Teams Human Resources Advisor Relationship Specialty Start Date End Date Chelsi Kauffman MD [address] [place] [address] PCP - General Family Medicine 12/20/18 documented as of this encounter
--- OUTSIDE RECORDS SUMMARY | 2024-08-26 12:25 | XMS_ITS | Encounter Summary ---
Author Organization [employer] Address [address] [facility] [address] 7t [place] [address] Care Team Providers Care Farm Product Purchaser Name Role Phone Chelsi Kauffman MD Primary Care Provide r Reason for Visit * Reason Comments Med Refill Encounter Details Date Type Department Care Team ([facility] Contact Info) Description 03/31/2023 Refill [facility] CHC MED & PEDS [address] [place] [address] Kiana Santos, DO [address] [place] [address] Vitamin D deficiency, unspecified Social History Tobacco [...] Description 08/28/2024 9:00 AM EDT Office Visit [facility] OPTOMETRY [address] [place] [address] RitoKennedi blandon, OD [address] [place] [address] 09/17/2024 9:45 AM EDT Office Visit [facility] MEDICINE [address] [place] [address] 09/23/2024 11:15 AM EDT Office Visit [facility] MEDICINE [address] [place] [address] Chelsi Kauffman MD [address] [place] [address] 09/24/2024 9:00 AM EDT Office Visit [facility] ADULT DENTAL [address] [place] [address] Aries Carolina DDS [address] [place] [address] documented as of this encounter Visit Diagnoses Diagnosis Vitamin D deficiency, unspecified documented in this encounter Additional Health Concerns Assessment Noted Time PHQ-9 Depression Total Score: 24 023 2:25 PM EDT documented as of this encounter Care Teams Farm Product Purchaser Relationship Specialty Start Date End Date Chelsi Kauffman MD [address] [place] [address] PCP - General Family Medicine 9/12/19 documented as of this encounter
--- OUTSIDE RECORDS SUMMARY | 2024-08-26 12:25 | XMS_ITS | Encounter Summary ---
Author Organization [employer] Address 75 [facility] 7 [place] [address] Care Team Providers Care Mortar Worker Name Role Phone Chelsi Kauffman MD Primary Care Provide r Reason for Visit * Reason Comments Med Refill Encounter Details Date Type Department Care Team ([facility] Contact Info) Description 03/16/2023 Refill [facility] MEDICINE [address] [place] [address] Chelsi Kauffman MD [address] [place] [address] Dry eyes Social History Tobacco Use Types [...] Description 08/28/2024 9:00 AM EDT Office Visit [facility] OPTOMETRY [address] [place] [address] RitoKennedi blandon, OD [address] [place] [address] 09/17/2024 9:45 AM EDT Office Visit [facility] MEDICINE [address] [place] [address] 09/23/2024 11:15 AM EDT Office Visit [facility] MEDICINE [address] [place] [address] Chelsi Kauffman MD [address] [place] [address] 09/24/2024 9:00 AM EDT Office Visit [facility] ADULT DENTAL [address] [place] [address] Aries Carolina DDS [address] [place] [address] documented as of this encounter Visit Diagnoses Diagnosis Dry eyes Unspecified tear film insufficiency documented in this encounter Additional Health Concerns Assessment Noted Time PHQ-9 Depression Total Score: 24 023 2:25 PM EDT documented as of this encounter Care Teams Mortar Worker Relationship Specialty Start Date End Date Chelsi Kauffman MD [address] [place] [address] PCP - General Family Medicine 12/20/18 documented as of this encounter
--- OUTSIDE RECORDS SUMMARY | 2024-08-26 12:25 | XMS_ITS | Encounter Summary ---
Author Organization [employer] Address 75 [facility] 7 [place] [address] Care Team Providers Care Cna Ltc Name Role Phone Chelsi Kauffman MD Primary Care Provide r Reason for Visit * Reason Comments Med Refill Encounter Details Date Type Department Care Team ([facility] Contact Info) Description 09/14/2023 Refill [facility] MEDICINE [address] [place] [address] Chelsi Kauffman MD [address] [place] [address] Polyarthralgia Social History Tobacco Use Types Packs/Day [...] Description 08/28/2024 9:00 AM EDT Office Visit [facility] OPTOMETRY [address] [place] [address] Kennedi Veras, OD [address] [place] [address] 09/17/2024 9:45 AM EDT Office Visit [facility] MEDICINE [address] [place] [address] 09/23/2024 11:15 AM EDT Office Visit [facility] MEDICINE [address] [place] [address] Chelsi Kauffman MD [address] [place] [address] 09/24/2024 9:00 AM EDT Office Visit [facility] ADULT DENTAL [address] [place] [address] Aries Carolina DDS [address] [place] [address] documented as of this encounter Goals Goal [...] documented as of this encounter Care Teams Cna Ltc Relationship Specialty Start Date End Date Chelsi Kauffman MD [address] [place] [address] PCP - General Family Medicine 12/20/18 documented as of this encounter
--- OUTSIDE RECORDS SUMMARY | 2024-08-26 12:25 | XMS_ITS | Encounter Summary ---
Author Organization [employer] Address [address] [place] [address] 7 [place] [address] Care Team Providers Care Pharmacy Ancillary Name Role Phone Chelsi Kauffman MD Primary Care Provide r Reason for Visit * Reason Comments Med Refill Encounter Details Date Type Department Care Team ([facility] Contact Info) Description 08/24/2022 Refill [facility] CHC MED & PEDS [address] [place] [address] Mariana Meyer MD [address] [place] [address] Social History Tobacco Use Types Packs/Day Years [...] Upcoming Encounters Date Type Department Care Team ([facility] Contact Info) Description 08/28/2024 9:00 AM EDT Office Visit [facility] OPTOMETRY [address] [place], [place] [phone] Kennedi Veras, OD [address] [place] [address] 09/17/2024 9:45 AM EDT Office Visit [facility] MEDICINE [address] [place] [address] 09/23/2024 11:15 AM EDT Office Visit [facility] MEDICINE [address] [place] [address] Chelsi Kauffman MD [address] [place] [address] 09/24/2024 9:00 AM EDT Office Visit [facility] ADULT DENTAL [address] [place], [place] [phone] Aries Carolina DDS [address] [place] [address] documented as of this encounter Visit Diagnoses Not on filedocumented in this encounter Additional Health Concerns Assessment Noted Time PHQ-9 Depression Total Score: 24 023 2:25 PM EDT documented as of this encounter Care Teams Pharmacy Ancillary Relationship Specialty Start Date End Date Chelsi Kauffman MD [address] [place] [id number] PCP - General Family Medicine 12/20/18 documented as of this encounter
--- OUTSIDE RECORDS SUMMARY | 2024-08-26 12:25 | XMS_ITS | Encounter Summary ---
Author Organization [employer] Address [address] [facility] 7 [place] [address] Care Team Providers Care Budget Specialist Name Role Phone Chelsi Kauffman MD Primary Care Provide r Reason for Visit * Reason Comments Med Refill Encounter Details Date Type Department Care Team ([facility] Contact Info) Description 03/31/2023 Refill [facility] MEDICINE [address] [place] [address] Chelsi Kauffman MD [address] [place] [address] Dermatitis, seborrheic; Polyarthralgia Social History Tobacco Use [...] Description 08/28/2024 9:00 AM EDT Office Visit [facility] OPTOMETRY [address] [place] [address] RitoKennedi blandon, OD [address] [place] [address] 09/17/2024 9:45 AM EDT Office Visit [facility] MEDICINE [address] [place] [address] 09/23/2024 11:15 AM EDT Office Visit [facility] MEDICINE [address] [place] [address] Chelsi Kauffman MD [address] [place] [address] 09/24/2024 9:00 AM EDT Office Visit [facility] ADULT DENTAL [address] [place] [address] Aries Carolina DDS [address] [place] [address] documented as of this encounter Visit Diagnoses Diagnosis Dermatitis, seborrheic Unspecified seborrheic dermatitis Polyarthralgia Pain in joint, multiple sites documented in this encounter Additional Health Concerns Assessment Noted Time PHQ-9 Depression Total Score: 24 023 2:25 PM EDT documented as of this encounter Care Teams Budget Specialist Relationship Specialty Start Date End Date Chelsi Kauffman MD [address] [place] [address] PCP - General Family Medicine 12/20/18 documented as of this encounter
--- OUTSIDE RECORDS SUMMARY | 2024-08-26 12:25 | XMS_ITS | Encounter Summary ---
Author Organization [employer] Address [address] [facility] 7 [place] [address] Care Team Providers Care Boilermaker'S Assistant Name Role Phone Chelsi Kauffman MD Primary Care Provide r Reason for Visit * Reason Comments Med Refill Encounter Details Date Type Department Care Team ([facility] Contact Info) Description 05/09/2023 Refill [facility] MEDICINE [address] [place] [address] Chelsi Kauffman MD [address] [place] [address] Migraine without aura, not refractory Social History [...] 9:00 AM EDT Office Visit [facility] OPTOMETRY [address] [place] [address] Rito, Kennedi, OD 230 [place] [address] 09/17/2024 9:45 AM EDT Office Visit [facility] MEDICINE [address] [place] [address] 09/23/2024 11:15 AM EDT Office Visit [facility] MEDICINE [address] [place] [address] Chelsi Kauffman MD [address] [place] [address] 09/24/2024 9:00 AM EDT Office Visit [facility] ADULT DENTAL [address] [place] [address] Aries Carolina DDS [address] [place] [address] documented as of this encounter Visit Diagnoses Diagnosis Migraine without aura, not refractory documented in this encounter Additional Health Concerns Assessment Noted Time PHQ-9 Depression Total Score: 0 04/25/19 24 9:30 AM EST documented as of this encounter Care Teams Boilermaker'S Assistant Relationship Specialty Start Date End Date Chelsi Kauffman MD [address] [place] [address] PCP - General Family Medicine 12/20/18 documented as of this encounter
--- OUTSIDE RECORDS SUMMARY | 2024-08-26 12:25 | XMS_ITS | Encounter Summary ---
Author Organization [employer] Address 75 [facility] 7t [place] [address] Care Team Providers Care Dry Cell Battery Assembler Name Role Phone Chelsi Kauffman MD Primary Care Provide r Encounter Details Date Type Department Care Team (Late st Contact Info) Description 01/17/2023 Abstract [facility] MEDICINE [address] [place] [address] Griselda Segal Social History Tobacco Use Types [...] Description 08/28/2024 9:00 AM EDT Office Visit [facility] OPTOMETRY [address] [place] [address] Kennedi Veras, OD 230 [place] [address] 09/17/2024 9:45 AM EDT Office Visit [facility] MEDICINE [address] [place] [address] 09/23/2024 11:15 AM EDT Office Visit [facility] MEDICINE [address] [place] [address] Chelsi Kauffman MD [address] [place] [address] 09/24/2024 9:00 AM EDT Office Visit [facility] ADULT DENTAL [address] [place] [address] Aries Carolina DDS [address] [place] [address] documented as of this encounter Procedures Procedure [...] documented as of this encounter Care Teams Dry Cell Battery Assembler Relationship Specialty Start Date End Date Chelsi Kauffman MD [address] [place] [address] PCP - General Family Medicine 12/20/18 documented as of this encounter
--- OUTSIDE RECORDS SUMMARY | 2024-08-26 12:25 | XMS_ITS | Encounter Summary ---
Author Organization [employer] Address [address] [place] [address] Care Team Providers Care Treasurer Savings Bank Name Role Phone Chelsi Kauffman MD Primary Care Provide r Reason for Visit * Reason Comments Med Refill Encounter Details Date Type Department Care Team (Late Contact Info) Description 09/18/2022 Refill [facility] MEDICINE [address] [place] [address] Chelsi Kauffman MD [address] [place] [address] Asthma in adult, moderate persistent, uncomplicated Social [...] [facility] OPT[facility] [address] [place] [address] RitoKennedi blandon, OD 230 [place] [address] 09/17/2024 9:45 AM EDT Office Visit [facility] MEDICINE [address] [place] [address] 09/23/2024 11:15 AM EDT Office Visit [facility] MEDICINE [address] [place] [address] Chelsi Kauffman MD [address] [place] [address] 09/24/2024 9:00 AM EDT Office Visit [facility] ADULT DENTAL [address] [place] [address] Aries [place] DDS [address] [place] [address] documented as of this encounter Visit Diagnoses Diagnosis Asthma in adult, moderate persistent, uncomplicated documented in this encounter Additional Health Concerns Assessment Noted Time PHQ-9 Depression Total Score: 24 023 2:25 PM EDT documented as of this encounter Care Teams Treasurer Savings Bank Relationship Specialty Start Date End Date Chelsi Kauffman MD [address] [place] [address] [phone] PCP - General Family Medicine 12/20/18 documented as of this encounter
--- OUTSIDE RECORDS SUMMARY | 2024-08-26 12:25 | XMS_ITS | Encounter Summary ---
Author Organization [employer] Address [address] [place] [address] 7 [place] [address] Care Team Providers Care Director Of Nuclear Medicine Name Role Phone Chelsi Kauffman MD Primary Care Provide r Reason for Visit * Reason Onset Date Comments Reschedule 06/13/2023 Encounter Details Date Type Department Care Team ([facility] st Contact Info) Description 06/13/2023 Telephone [facility] MEDICINE [address] [place] [address] Chelsi Kauffman MD 230 [place] [address] Reschedule Social History Tobacco Use Types Packs/Day [...] 04/07 Derm appointment. Please contact pt at [phone] documented in this encounter Plan of Treatment Upcoming Encounters Date Type Department Care Team (Late st Contact Info) Description 08/28/2024 9:00 AM EDT Office Visit [facility] OPTOMETRY [address] [place] [address] Kennedi Veras, OD [address] [place] [address] 09/17/2024 9:45 AM EDT Office Visit [facility] MEDICINE [address] [place] [address] 09/23/2024 11:15 AM EDT Office Visit [facility] MEDICINE [address] [place] [address] Chelsi Kauffman MD 230 [place] [address] 09/24/2024 9:00 AM EDT Office Visit [facility] ADULT DENTAL [address] [place] [address] Aries [place] DDS [address] [place] [address] documented as of this encounter Visit Diagnoses Not on filedocumented in this encounter Additional Health Concerns Assessment Noted Time PHQ-9 Depression Total Score: 0 04/25/19 24 9:30 AM EST documented as of this encounter Care Teams Director Of Nuclear Medicine Relationship Specialty Start Date End Date Chelsi Kauffman MD 230 [place] [address] PCP - General Family Medicine 12/20/18 documented as of this encounter
--- OUTSIDE RECORDS SUMMARY | 2024-08-26 12:25 | XMS_ITS | Encounter Summary ---
Author Organization [employer] Address [address] [place] [address] [address] [address] Care Team Providers Care Survey Researcher Name Role Phone Chelsi Kauffman MD Primary Care Provide r Reason for Visit * Reason Comments Med Refill Encounter Details Date Type Department Care Team (Late Contact Info) Description 08/29/2022 Refill [facility] MED & PEDS [address] [place] [address] Chelsi Kauffman MD [address] [place] [address] Mild intermittent asthma without complication Social History [...] Description 08/28/2024 9:00 AM EDT Office Visit [facility] OPTOMETRY [address] [place] [address] Kennedi Veras, OD 230 [place] [address] 09/17/2024 9:45 AM EDT Office Visit [facility] MEDICINE [address] [place] [address] 09/23/2024 11:15 AM EDT Office Visit [facility] MEDICINE [address] [place] [address] Chelsi Kauffman MD [address] [place] [address] 09/24/2024 9:00 AM EDT Office Visit [facility] ADULT DENTAL [address] [place], [place] [phone] Aries [place] DDS [address] [place] [address] documented as of this encounter Visit Diagnoses Diagnosis Mild intermittent asthma without complication documented in this encounter Additional Health Concerns Assessment Noted Time PHQ-9 Depression Total Score: 24 07/26/ 023 2:25 PM EDT documented as of this encounter Care Teams Survey Researcher Relationship Specialty Start Date End Date Chelsi Kauffman MD [address] [place] [address] [phone] PCP - General Family Medicine 12/20/18 documented as of this encounter
--- OUTSIDE RECORDS SUMMARY | 2024-08-26 12:26 | XMS_ITS | Encounter Summary ---
Author Organization [employer] Address [address] [place] [address] 7 [place] [address] Care Team Providers Care Audio Production Manager Name Role Phone Chelsi Kauffman MD Primary Care Provide r Reason for Visit * Reason Onset Date Comments Med Refill 05/30/2024 Encounter Details Date Type Department Care Team ([facility] st Contact Info) Description 05/30/2024 Refill [facility] MEDICINE [address] [place] [address] Chelsi Kauffman MD [address] [place] [address] Social History Tobacco Use Types Packs/Day Years [...] MG/0.5ML solution auto-injector To be sent to: [facility] - [place], [place] - [address] [place] [address] documented in this encounter Plan of Treatment Upcoming Encounters Date Type Department Care Team (Late st Contact Info) Description 08/28/2024 9:00 AM EDT Office Visit [facility] OPTOMETRY [address] [place] [address] Kennedi Veras, OD 230 [place] [address] 09/17/2024 9:45 AM EDT Office Visit [facility] MEDICINE [address] [place] [address] 09/23/2024 11:15 AM EDT Office Visit [facility] MEDICINE [address] [place] [address] Chelsi Kauffman MD [address] [place] [address] 09/24/2024 9:00 AM EDT Office Visit [facility] ADULT DENTAL [address] [place], [place] [phone] Aries Carolina DDS [address] [place] [address] documented as of this encounter Goals Goal [...] documented as of this encounter Care Teams Audio Production Manager Relationship Specialty Start Date End Date Chelsi Kauffman MD [address] [place] [phone] PCP - General Family Medicine 12/20/18 documented as of this encounter
--- OUTSIDE RECORDS SUMMARY | 2024-08-26 12:26 | XMS_ITS | Encounter Summary ---
Author Organization [employer] Address [address] [facility] 7 [place] [address] Care Team Providers Care Electrical Sign Wirer Name Role Phone Chelsi Kauffman MD Primary Care Provide r Reason for Visit * Reason Comments Med Refill Encounter Details Date Type Department Care Team ([facility] Contact Info) Description 05/06/2024 Refill [facility] MEDICINE [address] [place] [address] Chelsi Kauffman MD 230 [place] [address] Mild intermittent asthma without complication; Asthma in [...] the past 12 months, has t he [employer] gas, oil or water company threatened to [...] 9:00 AM EDT Office Visit [facility] OPTOMETRY [address] [place] [address] Kennedi Veras, OD 230 [place] [address] 09/17/2024 9:45 AM EDT Office Visit [facility] MEDICINE [address] [place] [address] 09/23/2024 11:15 AM EDT Office Visit [facility] MEDICINE [address] [place] [address] Chelsi Kauffman MD 230 [place] [address] 09/24/2024 9:00 AM EDT Office Visit [facility] ADULT DENTAL [address] [place] [address] Aries Carolina DDS [address] [place] [address] documented as of this encounter Goals Goal [...] documented as of this encounter Care Teams Electrical Sign Wirer Relationship Specialty Start Date End Date Chelsi Kauffman MD [address] [place] [address] PCP - General Family Medicine 12/20/18 documented as of this encounter
--- OUTSIDE RECORDS SUMMARY | 2024-08-26 12:26 | XMS_ITS | Encounter Summary ---
Author Organization [employer] Address [address] [place] [address] 7 [place] [address] Care Team Providers Care Athletic Coordinator Name Role Phone Chelsi Kauffman MD Primary Care Provide r Reason for Visit * Reason Onset Date Comments Prior Authorization 08/22/2024 CCA PA: Jerel alvarenga Encounter Details Date Type Department Care Team ([facility] st Contact Info) Description 08/22/2024 Telephone [facility] MEDICINE [address] [place] [address] Chelsi Kauffman MD [address] [place] [address] Prior Authorization (CCA PA: Abner) Social History [...] Zepbound. Approval/denial pending. Hernandez: [id number] Rx #: [id number] * Telephone Encounter - Shonna Hale - 08/22/2024 2:52 PM EDT Tc from pt stating PA needed for Zepbound 12.5 MG/0.5ML solution auto-injector documented in this encounter Plan of Treatment Upcoming Encounters Date Type Department Care Team (Late st Contact Info) Description 08/28/2024 9:00 AM EDT Office Visit [facility] OPTOMETRY [address] [place] [phone] Kennedi Veras, OD 230 [place] [address] 09/17/2024 9:45 AM EDT Office Visit [facility] MEDICINE [address] [place] [address] 09/23/2024 11:15 AM EDT Office Visit [facility] MEDICINE [address] [place] [address] Chelsi Kauffman MD [address] [place] [address] 09/24/2024 9:00 AM EDT Office Visit [facility] ADULT DENTAL [address] [place] [address] Aries Carolina DDS [address] [place] [address] documented as of this encounter Goals Goal [...] documented as of this encounter Care Teams Athletic Coordinator Relationship Specialty Start Date End Date Chelsi Kauffman MD [address] [place] [address] PCP - General Family Medicine 12/20/18 documented as of this encounter
--- OUTSIDE RECORDS SUMMARY | 2024-08-26 12:26 | XMS_ITS | Encounter Summary ---
Author Organization [employer] Address [address] [place] [address] 7 [place] [address] Care Team Providers Care Search Developer Name Role Phone Chelsi Kauffman MD Primary Care Provide r Reason for Referral * Consultation (Routine) - Closed Specialty Diagnoses / Procedures Referred By Contac t Referred To Contact Physical Therapy Diagnoses Benign paroxysmal vertigo, unspecified laterality Christine Laurent MD [address] [place] [address] Phone: tel: fax: [facility] [address] [place] [address] Phone: tel: fax: Referral ID Status Reason Start Date Expiration Date V isits Requested Visits Authorized [id number] Closed Specialty Services Required 04/26/2024 04/26/2025 1 1 Encounter Details Date Type Department Care Team (Late st Contact Info) Description 04/26/2024 Orders Only [facility] MEDICINE [address] [place] [address] Christine Laurent MD 230 [place], [place] [phone] Benign paroxysmal vertigo, unspecified laterality (Primary Dx) [...] [facility] OPTOMETRY [address] [place] [address] Rito, Kennedi, OD [address] [place] [address] 09/17/2024 9:45 AM EDT Office Visit [facility] MED[facility]INE [address] [facility] [place] [place] [phone] 09/23/2024 11:15 AM EDT Office Visit [facility] MEDICINE [address] [place] [address] Chelsi Kauffman MD 230 [place], [place] [phone] 09/24/2024 9:00 AM EDT Office Visit [facility] ADULT DENTAL [address] [place], [place] [phone] Aries Carolina DDS [address] [place], [place] [phone] Scheduled Referrals Name Type Priority Associated Diagnoses [...] documented as of this encounter Care Teams Search Developer Relationship Specialty Start Date End Date Chelsi Kauffman MD [address] [facility] [place], [place] [phone] PCP - General Family Medicine 12/20/18 documented as of this encounter
--- OUTSIDE RECORDS SUMMARY | 2024-08-26 12:26 | XMS_ITS | Encounter Summary ---
Author Organization [employer] Address [address] [facility] 7t [place] [address] Care Team Providers Care Ic Designer Standard Cells Name Role Phone Chelsi Kauffman MD Primary Care Provide r Encounter Details Date Type Department Care Team ([facility] st Contact Info) Description 03/25/2024 Telephone [facility] MEDICINE [address] [place] [address] Chelsi Kauffman MD [address] [place] [address] Social History Tobacco Use Types Packs/Day Years [...] Description 08/28/2024 9:00 AM EDT Office Visit [facility] OPTOMETRY [address] [place] [address] Kennedi Veras, OD 230 [place] [address] 09/17/2024 9:45 AM EDT Office Visit [facility] MEDICINE [address] [place] [address] 09/23/2024 11:15 AM EDT Office Visit [facility] MEDICINE [address] [place] [address] Chelsi Kauffman MD [address] [place] [address] 09/24/2024 9:00 AM EDT Office Visit [facility] ADULT DENTAL 230 [place] [address] Aries Carolina DDS [address] [place] [address] documented as of this encounter Goals Goal [...] documented as of this encounter Care Teams Ic Designer Standard Cells Relationship Specialty Start Date End Date Chelsi Kauffman MD [address] [place] [address] PCP - General Family Medicine 12/20/18 documented as of this encounter
--- OUTSIDE RECORDS SUMMARY | 2024-08-26 12:26 | XMS_ITS | Encounter Summary ---
Author Organization [employer] Address 75 [facility] 7t [place] [address] Care Team Providers Care Fruit Tester Name Role Phone Chelsi Kauffman MD Primary Care Provide r Encounter Details Date Type Department Care Team ([facility] st Contact Info) Description 05/06/2024 Orders Only [facility] MEDICINE 230 [place], [place] [phone] Mariana Meyer MD [address] [place] [address] Social History Tobacco Use Types Packs/Day Years [...] 9:00 AM EDT Office Visit [facility] OPTOMETRY [address] [place] [address] Kennedi Veras, OD 230 [place] [address] 09/17/2024 9:45 AM EDT Office Visit [facility] MEDICINE [address] [place] [address] 09/23/2024 11:15 AM EDT Office Visit [facility] MEDICINE [address] [place] [address] Chelsi Kauffman MD [address] [place] [address] 09/24/2024 9:00 AM EDT Office Visit [facility] ADULT DENTAL 230 [place] [address] Aries Carolina DDS 230 [place] [address] documented as of this encounter Goals Goal [...] as of this encounter Care Teams Fruit Tester Relationship Specialty Start Date End Date Chelsi Kauffman MD [address] [place] [address] PCP - General Family Medicine 12/20/18 documented as of this encounter
--- OUTSIDE RECORDS SUMMARY | 2024-08-26 12:26 | XMS_ITS | Encounter Summary ---
Author Organization [employer] Address [address] [facility] 7 [place] [address] Care Team Providers Care Continuous Weld Pipe Mill Supervisor Name Role Phone Chelsi Kauffman MD Primary Care Provide r Reason for Visit * Reason Comments Med Refill Encounter Details Date Type Department Care Team ([facility] st Contact Info) Description 11/10/2023 Refill [facility] MEDICINE [address] [place] [address] Chelsi Kauffman MD [address] [place] [address] Chronic toe pain, left foot Social History [...] Office Visit [facility] OPTOMETRY [address] [place] [address] Kennedi Veras, OD 230 [place] [address] 09/17/2024 9:45 AM EDT Office Visit [facility] MEDICINE [address] [place] [address] 09/23/2024 11:15 AM EDT Office Visit [facility] MEDICINE [address] [place] [address] Chelsi Kauffman MD [address] [place] [address] 09/24/2024 9:00 AM EDT Office Visit [facility] ADULT DENTAL [address] [place] [address] Aries Carolina DDS [address] [place] [address] documented as of this encounter Goals Goal [...] documented as of this encounter Care Teams Continuous Weld Pipe Mill Supervisor Relationship Specialty Start Date End Date Chelsi Kauffman MD [address] [place] [address] PCP - General Family Medicine 12/20/18 documented as of this encounter
--- OUTSIDE RECORDS SUMMARY | 2024-08-26 12:26 | XMS_ITS | Encounter Summary ---
Author Organization [employer] Address [address] [place] [address] 7 [place] [address] Care Team Providers Care Asphalt Distributor Operator Name Role Phone Chelsi Kauffman MD Primary Care Provide r Reason for Visit * Reason Onset Date Comments triage 06/09/2022 Encounter Details Date Type Department Care Team ([facility] st Contact Info) Description 06/09/2022 Telephone [facility] MEDICINE [address] [place] [address] Chelsi Kauffman MD [address] [place] [address] triage Social History Tobacco Use Types Packs/Day [...] 06/09/2022 12:16 PM EST Triage call with [employer] Ic Designer Custom ID [id number] Pt reports third time with Covid. Covid [...] accepted this outcome Please contact pt at [phone] Czech Speaker documented in this encounter Plan of Treatment Upcoming Encounters Date Type Department Care Team (Late st Contact Info) Description 08/28/2024 9:00 AM EDT Office Visit [facility] OPTOMETRY [address] [place] [address] Kennedi Veras, OD [address] [place] [address] 09/17/2024 9:45 AM EDT Office Visit [facility] MEDICINE [address] [place] [address] 09/23/2024 11:15 AM EDT Office Visit [facility] MEDICINE [address] [place] [address] Chelsi aKuffman MD [address] [place] [address] 09/24/2024 9:00 AM EDT Office Visit [facility] ADULT DENTAL [address] [place] [address] Aries Carolina DDS [address] [place] [address] documented as of this encounter Visit Diagnoses Not on filedocumented in this encounter Care Teams Asphalt Distributor Operator Relationship Specialty Start Date End Date Chelsi Kauffman MD [address] [place] [address] PCP - General Family Medicine 12/20/18 documented as of this encounter
--- OUTSIDE RECORDS SUMMARY | 2024-08-26 12:26 | XMS_ITS | Clinical Summary ---
Author Organization [employer] Address [address] [place] [address] 7t [place] [address] Care Team Providers Care Entry Level Buyer Name Role Phone Chelsi Kauffman MD Primary [...] mL 1 Active Blood Glucose Monitoring Suppl ([employer] [place] Lite) w/Device kitIndications:P rediabetes Use to test [...] lumbar anterolisthesis Rx: oxycodone 5mg BID Last [facility]OU[facility]ILLER agreement: 04/23/24 Tier: III (Q4-6 months), Dr. [...] is persistently high to contact me back panel padder pain 03/18/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 - Recommended watching [employer] videos fro stretching and exercises that can [...] Type Department Care Team Description 08/22/2024 Telephone [facility] [address] [place] [address] Chelsi Kauffman MD Prior Authorization (CCA PA: Abner) 08/16/2024 Refill [facility] [address] [place] [address] Mariana Meyer MD Class 3 severe obesity due to excess calories with serious comorbidity and body mass index (BMI) of 40.0 to 44.9 in adult 08/12/2024 Telephone [facility] [address] [place] [phone] Chelsi Kauffman MD Referral 08/08/2024 11:00 AM EDT Office Visit [facility] [address] [place] [address] Nicole Lay Xerostomia (Primary Dx); Teeth missing; Dental plaque 08/08/2024 Telephone [facility] [address] [place] [phone] Chelsi Kauffman MD Durable Medical Equipment (CCA Once Care: Grab Bars (Updated)) 08/08/2024 Telephone [facility] [address] [place] [phone] Chelsi Kauffman MD telephone call 08/06/2024 Refill [facility] [address] [place] [address] Chelsi Kauffman MD Dry eye syndrome of bilateral lacrimal glands 08/05/2024 Refill [facility] [address] [place] [phone] Chelsi Kauffman MD Vitamin D deficiency, unspecified 08/02/2024 9:20 AM EDT Office Visit [facility] [address] [place] [phone] Lionel Pereira MD Dysuria (Primary Dx) 2024 Refill [facility] [address] [place] [address] Chelsi Kauffman MD Mild intermittent asthma without complication 07/25/2024 Refill [facility] [address] [place] [address] Chelsi Kauffman MD Chronic midline low back pain with right-sided sciatica; Polyarthralgia 07/16/2024 9:45 AM EDT Office Visit [facility] [address] [place] [address] Mackenzie Whatley FNP Anterolisthesis of lumbar spine (Primary Dx); Long-term current use of opiate analgesic 07/16/2024 Refill [facility] [address] [place] [address] Chelsi Kauffman MD Class 3 severe obesity due to excess calories with serious comorbidity and body mass index (BMI) of 40.0 to 44.9 in adult 07/16/2024 Travel 07/07/2024 Refill [facility] [address] [place] [address] Mariana Meyer MD Moderate episode of recurrent major depressive disorder (CMS/HCC); Migraine without aura, not refractory; Chronic toe pain, left foot; HTN (hypertension), benign; Essential hypertension 07/07/[address] [address] Chelsi Kauffman MD Essential hypertension 06/27/[address] [address] Chelsi Kauffman MD Durable Medical Equipment (DME Request: life alert and grab bars) 06/24/2024 Refill [facility] [address] [place] [address] Chelsi Kauffman MD Migraine without aura, not refractory 06/21/2024 11:00 AM EDT Office Visit [address] [address] Chelsi Kauffman MD Class 3 severe obesity due to excess calories with serious comorbidity and body mass index (BMI) of 40.0 to 44.9 in adult ([facility]) (Primary Dx); Essential hypertension; Chronic bilateral low back pain without sciatica; Unstable gait 06/21/2024 Travel 06/18/2024 9:45 AM EDT Office Visit [facility] [address] [place] [address] Mackenzie Whatley FNP Long-term current use of opiate analgesic (Primary Dx); Anterolisthesis of lumbar spine 06/18/2024 Refill [facility] [address] [place] [address] Chelsi Kauffman MD Chronic midline low back pain with right-sided sciatica; Polyarthralgia 06/18/2024 Travel 06/14/2024 Refill [facility] [address] [place] [address] Chelsi Kauffman MD Polyarthralgia 06/13/2024 Patient Outreach [facility] [address] [place] [address] Chelsi Kauffman MD Pre-visit Planning (SDOH screening negative and tobacco screening negative) 06/10/2024 Travel 06/10/2024 Telephone [facility] [address] [place] [address] Chelsi Kauffman MD [employer] [place] (Attend wipes) 06/06/2024 Refill [facility] [address] [place] [address] Chelsi Kauffman MD Vertigo; Hypertension, unspecified type; Preventative health care 05/31/2024 Orders Only [facility] [address] [place] [address] Chelsi Kauffman MD Nausea (Primary Dx) 05/30/2024 Orders Only [facility] [address] [place] [address] Chelsi Kauffman MD Class 3 severe obesity due to excess calories with serious comorbidity and body mass index (BMI) of 40.0 to 44.9 in adult ([facility]) (Primary Dx) 05/30/2024 Telephone [facility] [address] [place] [address] Chelsi Kauffman MD Nurse Triage 05/30/2024 Refill [facility] [address] [place], [place] [phone] Chelsi Kauffman MD 05/29/2024 Refill [facility] [address] [place], [place] [phone] Chelsi Kauffman MD Intertrigo from Last 3 [...] Office Visit [facility] [address] [place] [address] Kennedi Veras, OD [address] [place] [address] 09/17/2024 9:45 AM EDT Office Visit [facility] [address] [place] [address] 09/23/2024 11:15 AM EDT Office Visit [facility] [address] [place] [address] Chelsi Kauffman MD [address] [place] [address] 09/24/2024 9:00 AM EDT Office Visit [facility] [address] [place] [address] Aries Carolina DDS [address] [place] [address] Health Maintenance Due Date Last Done Comments [...] Routine 08/02/2024 9:59 AM EDT Dysuria POCT ANIKA-14 URINE DRUG [...] EDT 08/02/2024 4:18 PM EDT Comment:UACC Narrative [facility] - 08/04/2024 7:58 AM EDT Proteus mirabilis Quant > 100,000 cfu/mL Proteus mirabilis: Ampicillin <=2(S) Proteus mirabilis: Cefazolin (Urine) 4(S) Proteus mirabilis: Cefepime <=0.12(S) Proteus mirabilis: Ceftriaxone <=0.25(S) Proteus mirabilis: Ciprofloxacin <=0.06(S) Proteus mirabilis: Gentamicin <=1(S) Proteus mirabilis: Nitrofurantoin 128(R) Proteus mirabilis: Trimethoprim/Sulfamethoxazole <=20(S) Specimen Source: Urine clean catch Lionel Pereira MD LAB MICROBIOLOGY - GENERAL ORDER ANA ROSA Final Result [facility] [address] [place] [address] [phone] * POCT ANIKA-14 Urine Drug Screen (07/16/2024 10:55 AM EDT) Only the most recent of2 resultswithin the time period is included. TCA, Urine Positive Oxycodone Screen, Urine Positive Urine Urine specimen obtained by clean catch procedure / Unknown 07/16/2024 10:55 AM EDT Mackenzie Phylicia SENSOR SPECIALIST POINT OF CARE TEST ENTER/EDIT ORDERABLES Final Result * Vitamin D, 25-Hydroxy, Total, Immunoassay (07/10/2024 12:13 PM EDT) Vitamin D 25-OH Total 47.8 >30 ng/mL [facility] Comment: Health Based Reference Values*< 20 ??ng/mL ??Haidwbekf45-88 ng/mL ??Insufficient> 30 ??ng/mL ??Sufficient*Todd ALBERT. N [...] BLOOD ORDERABLES Final Result Performing Organization Address [facility] Co de Phone Number [facility] [address] [place] [phone] * TSH with Reflex to Free T4 (07/10/2024 12:13 PM EDT) Pathologist [facility] TSH reflex Free T4 0.80 0.32 - 4.0 uIU/mL [facility] Blood Venous blood specimen / Unknown 07/10/2024 12:13 PM EDT 07/10/2024 12:13 PM EDT us Chelsi Reece MD LAB BLOOD ORDERABLES Final Result Performing Organization Address [facility] de Phone Number [facility] [address] [place] [phone] * (ABNORMAL) CBC auto differential (07/10/2024 12:13 PM EDT) Pathologist [facility] White Blood Count 10.7 4.8 - 10.8 X10*3/uL [facility] Red Blood Count 4.91 4.20 - 5.50 X10*6/uL [facility] Hemoglobin 14.0 12.0 - 16.0 g/dl [facility] Hematocrit 43.4 37.0 - 47.0 % [facility] Mean Corpuscular Volume 88.4 80.0 - 98.0 fL [facility] Mean Corpuscular Hemoglobin 28.5 27.0 - 33.0 pg [facility] Mean Corpuscular HGB Conc 32.3 31.0 - 35.0 g/dl [facility] Red Cell Distribution Width 13.7 11.0 - 16.0 % [facility] Platelet Count 268 160 - 400 X10*3/uL [facility] Mean Platelet Volume 11.0 9.4 - 12.3 fL [facility] Neutrophils Percent Auto 73.0 45 - 73 % [facility] Imm Gran Pct Auto 0.3 0.0 - 0.4 % [facility] Lymphocytes Percent Auto 18.3(L) 20 - 40 % [facility] Monocytes Percent Auto 6.8 2 - 11 % [facility] Eosinophils Percent Auto 1.2 0 - 4 % [facility] Basophils Percent Auto 0.4 0 - 2 % [facility] NRBC Pct Auto 0.0 0.0 - 0.2 /100WBC [facility] Neutrophils Absolute Auto 7.8 2.0 - 8.3 x10*3/uL [facility] Imm Gran Abs Auto 0.03 0.00 - 0.03 X10*3/uL [facility] Lymphocytes Absolute Auto 2.0 1.2 - 4.9 X10*3/uL [facility] Monocytes Absolute Auto 0.7 0.1 - 1.2 X10*3/uL [facility] Eosinophils Absolute Auto 0.1 0.0 - 0.4 X10*3/uL [facility] Basophils Absolute Auto 0.0 0.0 - 0.2 X10*3/uL [facility] NRBC Abs Auto 0.000 0.0 - 0.012 X10*3/uL [facility] Blood Venous blood specimen / Unknown 07/10/2024 12:13 PM EDT 07/10/2024 12:13 PM EDT us Chelsi Reece MD LAB BLOOD ORDERABLES Final Result [facility] [address] [place] [address] [phone] * Hemoglobin A1c (07/10/2024 12:13 PM EDT) Hemoglobin A1c 5.7 <6.0 % [facility] Comment:Hemoglobin A1C Refer ence Range Adults: 4.8 - 6.0 % Non diabetic: < 6.0 % Goal: < 7.0 %Additional Action Suggested: > 8.0 %Note: Hemoglobin A1c results are invalid for patients with abnormal amounts of HbF. Blood transfusions may impact the HbA1c concentration in the patient sample. Estimated Average Glucose 117 mg/dL [facility] Comment:eAG = Estimated ave rage glucose which is %A1C expressed asaverage glucose, using the formula of the T0N-UvnmtuyYsgcaml Glucose study (ADAG), Diabetes Care, Vol.31,#8,Nov. 2007 Blood Venous blood specimen / Unknown 07/10/2024 12:13 PM EDT 07/10/2024 12:13 PM EDT us Chelsi Reece MD LAB BLOOD ORDERABLES Final Result [facility] [address] [place] [phone] * (ABNORMAL) Lipid Panel, Standard (07/10/2024 12:13 PM EDT) Triglycerides 167(H) <150 mg/dL [facility] Comment:Desirable Triglyceri de: less than 150 mg/dLBorderline High Triglyceride 150-199 mg/dLHigh Triglyceride: 200-499 mg/dLVery High Triglyceride: greater than or equal to 5OO mg/dL Cholesterol 163 <200 mg/dL [facility] Comment:Desirable Cholestero l: less than 200 mg/dLBorderline High Cholesterol: 200-239 mg/dLHigh Cholesterol: greater than 239 mg/dL LDL Cholesterol Calculated 90 <100 mg/dL [facility] Comment:Desirable LDL: less than 100 mg/dLNear Optimal/Above Optimal LDL: 110- 129 mg/dLBorderline High LDL: 130-159 mg/dLHigh LDL: 160-189 mg/dLVery High LDL: greater than or equal to 190 mg/dL HDL Cholesterol 40(L) >40 mg/dL [facility] Comment:Desirable HDL: great er than 40 mg/dL Note: This HDL assay may give artificially low results in patients with liver disease. Blood Venous blood specimen / Unknown 07/10/2024 12:13 PM EDT 07/10/2024 12:13 PM EDT us Chelsi Reece MD LAB BLOOD ORDERABLES Final Result [facility] [address] [place] [phone] [phone] * (ABNORMAL) Comprehensive Metabolic Panel (07/10/2024 12:13 PM EDT) Sodium 139 135 - 145 mmol/L [facility] Potassium 4.2 3.3 - 5.1 mmol/L [facility] Chloride 110(H) 96 - 108 mmol/L [facility] Carbon Dioxide 24 22 - 29 mmol/L [facility] Anion Gap 9(L) 12 - 20 [facility] Urea Nitrogen (BUN) 16 9 - 16 mg/dL [facility] Creatinine, Serum 0.73 0.5 - 1.4 mg/dL [facility] Estimated Glomerular Filt Rate >60 [facility] Comment:Chronic Kidney Disea se: Estimated GFR < 60 mL/min/1.06n3Bcqaec Kidney Disease: Estimated GFR < 15 mL/min/1.73m2 Glucose 96 60 - 115 mg/dL [facility] Calcium 8.8 8.4 - 10.2 mg/dL [facility] Bilirubin, Total 0.2 0.0 - 1.0 mg/dL [facility] Aspartate Amino Transferase 21 5 - 31 U/L [facility] Alanine Aminotransferase 26 0 - 31 U/L [facility] Total Protein 7.1 6.5 - 8.0 g/dL [facility] Albumin Level 3.8 3.5 - 5.0 g/dL [facility] Alkaline Phosphatase 120(H) 39 - 117 U/L [facility] Blood Venous blood specimen / Unknown 07/10/2024 12:13 PM EDT 07/10/2024 12:13 PM EDT us Chelsi Reece MD LAB BLOOD ORDERABLES Final Result [facility] [address] [place] [phone] * BI Mammogram Screening Tomosynthesis Bilateral (03/01/2024 10:20 AM EST) Anatomical Region Laterality Modality Breast Bilateral Mammography 03/01/2024 10:2 0 AM EST Narrative 03/12/2024 10:52 AM EST ? [facility] ? [address] ?[place] [address] ? Mammography Report ? Signed ? Patient: Up Chelsi Amanda ?MR#: [id number] ?? [id number] ? : 1965 ?Acct:[id number] ? Age/Sex: 58 / F ?ADM Date: 03/01/24 ? Loc: HO.MAMMO ? Attending Dr: Chelsi Reece MD ? Ordering Physician: Chelsi Kauffman MD ?Results: ?? 1Negative ? Date of Service: 03/01/24 ?Follow Up: 1 Year From Orig ?? inal Mammogram ? Procedure(s): MM tomosynthesis screening BI ?? Accession Number(s): [id number] ? cc: Chelsi Kauffman MD; Dc Bourne [...] DD/ 1020 ? TD/TT: 03/01/24 1045 ? Casing In Line Setter: ? Procedure Note Lis, Image - 03/12/2024 [facility] [address] [place] [address] [place] [address] Mammography Report Signed Patient: Chelsi Connors DMR#: [id number] : 1965Acct:[id number] Age/Sex: 58 / FADM Date: 03/01/24 Loc: POLO Attending Dr: Chelsi Reece MD Ordering Physician: Chelsi Kauffmanesults: 1Negative Date of Service: 03/01/24Follow Up: 1 Year From Orig inal Mammogram Procedure(s): MM tomosynthesis screening BI Accession Number(s): [id number] cc: Chelsi Kauffman MD; Dc Bourne MD [...] by: Taty Mccartney DO 03/12/2024 10:49 AM [facility] Dictated By: Taty Mccartney DO Signed By: <Electronically signed by Taty Mccartney DO in OV> 03/12/24 1049 DD/ 1020 TD/TT: 03/01/24 1045 Casing In Line Setter: Chelsi Reece MD IMG BI PROCEDURES Fin al Result * Image-Guided Pap with Age-Based Screening??with CT/NG,??Trichomonas (07/04/2023 3:39 PM EDT) Trichomonas (NAAT) NOT DETECTED NOT DETECTED [facility] Comment:The analytical perfo rmance characteristics of thisassay have been determined by [employer]. Themodifications have not been cleared or approved bythe FDA. This assay has been validated pursuant to theCLIA regulations and is used for clinical purposes.For additional information, please refer tohttp://education.[employer]/faq/Trichomonastma(This link is being provided for information/educational purposes only.)THIS TEST WAS PERFORMED AT:[employer] [place] [phone] HANEY MD CTNG Ref Lab NOT DETECTED NOT DETECTED [facility] NG Ref Lab NOT DETECTED NOT DETECTED [facility] Pap Vial Vaginal structure / Unknown 07/04/2023 3:39 PM EDT 07/10/2023 8:55 AM EDT Narrative [facility] - 07/11/2023 8:28 PM EDT Collection Date: [id number]: Vagina Chelsi Reece MD LAB CYTOLOGY ORDERABL ES Final Result [facility] [address] [place] [address] [phone] * HPV mRNA E6/E7 w/Reflex to HPV Genotypes 16, 18/45 (07/04/2023 3:39 PM EDT) HPV nRNA E6/E7 Not Detected Not Detected [facility] Comment:Methodology: Transcr iption-Mediated AmplificationThis assay detects E6/E7 viral messenger RNA (mRNA) from 14high-risk HPV types (16,18,31,33,35,39,45,51,52,56,58,59,66,68).Cervical sources are required for HPV testing.If a vaginal source from a patient who has had atotal hysterectomy with removal of cervix wassubmitted, please contact the testing laboratoryfor alternative testing options.For additional information, please refer tohttp://education.[employer]/faq/IJQ903o7(This link if provided for information/educational purposes only.)THIS TEST WAS PERFORMED AT:[employer] [place] [phone] HANEY MD HPV mRNA E6/E7 [facility] HPV 16 RNA [facility] HPV 18/45 RNA [facility] 07/04/2023 3:39 PM EDT 07/05/2023 2:00 PM EDT us Chelsi Reece MD LAB CYTOLOGY ORDERABL ES Final Result Performing Organization Address [facility] Co de Phone Number [facility] [address] [place] [address] [phone] * (ABNORMAL) Hepatitis C Ab (12/21/2022 10:55 AM EDT) Hepatitis C Antibody Reactive( A) Nonreactive [facility] Comment:Presumptive evidence of antibodies to HCV. 12/21/2022 10:5 5 AM EDT 12/21/2022 10:55 AM EDT [facility] External Provider LAB BLO OD ORDERABLES Final Result Performing Organization Address [facility] Number [facility] [address] [place] [phone] * HIV Ab/Ag ([place]) (12/21/2022 10:55 AM EDT) Pathologist [facility] HIV AB/AG Nonreactive Nonreactive [facility] Comment:HIV-1 p24 Ag and/or HIV-1/HIV-2 Ab not detected.A test result that is nonreactive does not exclude thepossibility of exposure to or infection with HIV-1 and/orHIV-2. Nonreactive results in this assay for individualswith prior exposure to HIV-1 and/or HIV-2 may be due toantigen and antibody levels that are below the limit ofdetection of this assay.The [employer] HIV Ag/Ab Combo assay result andsupplemental assay results should be interpreted inconjunction with the patient's clinical presentation,history and other laboratory results. If the results areinconsistent with clinical evidence, additional testing issuggested to confirm the result. 12/21/2022 10:5 5 AM EDT 12/21/2022 10:55 AM EDT Generic External Data Provider LAB BLOOD ORDERAB LES Final Result Performing Organization Address [facility] Co de Phone Number [facility] [address] [place] [address] [phone] * Colonoscopy (08/25/2022) Colonoscopy Normal Normal Narrative Griselda Segal - 08/25/2022 Recommended 1 year follow up due to poor prep us Historical Provider MD HEALTH MAINTENANCE Final Result from Last 3 Months or Most Recently Relevant to Health Maintenance Insurance [facility] < 65 [facility] Care Teams Entry Level Buyer Relationship Specialty Start Date End Date Chelsi Kauffman MD [address] [place] [phone] PCP - General Family Medicine 12/20/18
--- OUTSIDE RECORDS SUMMARY | 2024-08-26 12:26 | XMS_ITS | Encounter Summary ---
Author Organization [employer] Address [address] [place] [address] 7 [place] [address] Care Team Providers Care Stoker Installation Mechanic Name Role Phone Chelsi Kauffman MD Primary Care Provide r Reason for Visit * Reason Onset Date Comments Referral 08/12/2024 Encounter Details Date Type Department Care Team ([facility] st Contact Info) Description 08/12/2024 Telephone [facility] [address] [place] [address] Chelsi Kauffman MD [address] [place] [address] Referral Social History Tobacco Use Types Packs/Day [...] referral : DATE: 08/12/2024 TIME: 10:00am Address: [address] [place] [address] Visits: 1 Facility Name: [facility] Physical Therapy Type of Specialist: physical therapy DX:H81.13 Provider : not provided Provider NPI : Facility NPI: [id number] Phone # : [phone] Fax #: [phone] documented in this encounter Plan of Treatment Upcoming Encounters Date Type Department Care Team ([facility] Contact Info) Description 08/28/2024 9:00 AM EDT Office Visit [facility] OPT[facility] [address] [place] [address] Rito, Kennedi, OD [address] [place] [address] 09/17/2024 9:45 AM EDT Office Visit [facility] [address] [place] [address] 09/23/2024 11:15 AM EDT Office Visit [facility] [address] [place] [address] Chelsi Kauffman MD [address] [place] [address] 09/24/2024 9:00 AM EDT Office Visit [facility] [address] [place] [address] Aries Carolina DDS [address] [place], [place] [phone] documented as of this encounter Goals Goal [...] documented as of this encounter Care Teams Stoker Installation Mechanic Relationship Specialty Start Date End Date Chelsi Kauffman MD [address] [place] [address] PCP - General Family Medicine 12/20/18 documented as of this encounter
--- OUTSIDE RECORDS SUMMARY | 2024-08-26 12:26 | XMS_ITS | Encounter Summary ---
Author Organization [employer] Address [address] [place] [address] [address] [place] [address] Care Team Providers Care Custom Studio Coordinator Name Role Phone Chelsi Kauffman MD Primary Care Provide r Reason for Visit * Reason Onset Date Comments Durable Medical Equipment 07/28/2022 Encounter Details Date Type Department Care Team ([facility] st Contact Info) Description 07/28/2022 Telephone [facility] [address] [place] [address] Chelsi Kauffman MD [address] [place] [address] Durable Medical Equipment Social History Tobacco Use [...] Description 08/28/2024 9:00 AM EDT Office Visit [facility] [address] [place] [address] Kennedi Veras, OD [address] [place] [address] 09/17/2024 9:45 AM EDT Office Visit [facility] [address] [place] [address] 09/23/2024 11:15 AM EDT Office Visit [facility] [address] [place] [address] Chelsi Kauffman MD [address] [place] [address] 09/24/2024 9:00 AM EDT Office Visit [facility] [address] [place] [address] Aries Carolina DDS [address] [place] [address] documented as of this encounter Visit Diagnoses Not on filedocumented in this encounter Additional Health Concerns Assessment Noted Time PHQ-9 Depression Total Score: 24 07/26/ 023 2:25 PM EDT documented as of this encounter Care Teams Custom Studio Coordinator Relationship Specialty Start Date End Date Chelsi Kauffman MD [address] [place] [address] PCP - General Family Medicine 12/20/18 documented as of this encounter
== END 2024-08-26 08:18 | disposition home or self-care (01) ==
LOC: HO.LAB 08:17
PROVIDERS: PCP Family Medicine; Visit Provider Urology
DX: N39.0 Urinary tract infection, site not specified (principal); E66.9 Obesity, unspecified; R39.15 Urgency of urination; Z13.9 Encounter for screening, unspecified; Z79.899 Other long term (current) drug therapy
CPT/HCPCS: 51798; 81003; 87086; 99212

== ENCOUNTER 2024-08-26 08:17 | Outpatient (AMB) | payer OTHER, SELFPAY ==
--- OUTSIDE RECORDS SUMMARY | 2024-08-26 08:21 | XMS_ITS | Encounter Summary ---
Author Organization [employer] Address 75 [facility] 7 [place] [address] Care Team Providers Care Shaping Machine Operator Name Role Phone Chelsi Kauffman MD Primary Care Provide r Reason for Visit * Reason Comments Med Refill Encounter Details Date Type Department Care Team ([facility] Contact Info) Description 03/08/2023 Refill [facility] MEDICINE [address] [place] [address] Chelsi Kauffman MD 230 [place] [address] Migraine without aura, not refractory Social History [...] Care Team (Late st Contact Info) Description 08/28/2024 9:00 AM EDT Office Visit [facility] OPTOMETRY [address] [place] [address] RitoKennedi blandon, OD 230 [place] [address] 09/17/2024 9:45 AM EDT Office Visit [facility] MEDICINE [address] [place] [address] 09/23/2024 11:15 AM EDT Office Visit [facility] MEDICINE [address] [place] [address] Chelsi Kauffman MD 230 [place] [address] 09/24/2024 9:00 AM EDT Office Visit [facility] ADULT DENTAL [address] [place] [address] Aries Carolina DDS [address] [place] [address] documented as of this encounter Visit Diagnoses Diagnosis Migraine without aura, not refractory documented in this encounter Additional Health Concerns Assessment Noted Time PHQ-9 Depression Total Score: 24 023 2:25 PM EDT documented as of this encounter Care Teams Shaping Machine Operator Relationship Specialty Start Date End Date Chelsi Kauffman MD [address] [place] [address] PCP - General Family Medicine 12/20/18 documented as of this encounter
--- OUTSIDE RECORDS SUMMARY | 2024-08-26 08:21 | XMS_ITS | Encounter Summary ---
Author Organization [employer] Address [address] [place] [address] 7 [place] [address] Care Team Providers Care Pollution Control Engineer Name Role Phone Chelsi Kauffman MD Primary Care Provide r Encounter Details Date Type Department Care Team (Latest Contact Info) Description 09/04/2020 Abstract [facility] CONVERSIONS Dental, Provider, DDS Social History Tobacco [...] Description 08/28/2024 9:00 AM EDT Office Visit [facility] OPTOMETRY [address] [place] [address] Kennedi Veras, OD 230 [place] [address] 09/17/2024 9:45 AM EDT Office Visit [facility] MEDICINE [address] [place] [address] 09/23/2024 11:15 AM EDT Office Visit [facility] MEDICINE [address] [place] [address] Chelsi Kauffman MD 230 [place] [address] 09/24/2024 9:00 AM EDT Office Visit [facility] ADULT DENTAL 230 [place] [address] Aries Carolina DDS 230 [place] [address] documented as of this encounter Visit Diagnoses Not on filedocumented in this encounter Care Teams Pollution Control Engineer Relationship Specialty Start Date End Date Chelsi Kauffman MD 230 [place] [address] PCP - General Family Medicine 12/20/18 documented as of this encounter
--- OUTSIDE RECORDS SUMMARY | 2024-08-26 08:21 | XMS_ITS | Encounter Summary ---
Author Organization [employer] Address [address] [facility] [address] 7[address] [place] [address] Care Team Providers Care Second Operator Name Role Phone Chelsi Kauffman MD Primary Care Provide r Reason for Visit * Reason Comments Med Refill Encounter Details Date Type Department Care Team ([facility] Contact Info) Description 03/31/2023 Refill [facility] CHC MED & PEDS [address] [place] [address] Kiana Santos, DO 230 [place] [address] Vitamin D deficiency, unspecified Social History Tobacco [...] Description 08/28/2024 9:00 AM EDT Office Visit [facility] OPTOMETRY [address] [place] [address] RitoKennedi blandon, OD 230 [place] [address] 09/17/2024 9:45 AM EDT Office Visit [facility] MEDICINE 230 [place] [address] 09/23/2024 11:15 AM EDT Office Visit [facility] MEDICINE 230 [place] [address] Chelsi Kauffman MD 230 [place] [address] 09/24/2024 9:00 AM EDT Office Visit [facility] ADULT DENTAL 230 [place] [address] Aries Carolina DDS 230 [place] [address] documented as of this encounter Visit Diagnoses Diagnosis Vitamin D deficiency, unspecified documented in this encounter Additional Health Concerns Assessment Noted Time PHQ-9 Depression Total Score: 24 023 2:25 PM EDT documented as of this encounter Care Teams Second Operator Relationship Specialty Start Date End Date Chelsi Kauffman MD [address] [place] [address] PCP - General Family Medicine 9/12/19 documented as of this encounter
--- OUTSIDE RECORDS SUMMARY | 2024-08-26 08:21 | XMS_ITS | Encounter Summary ---
Author Organization [employer] Address 75 [facility] 7 [place] [address] Care Team Providers Care Hand Hide Stretcher Name Role Phone Chelsi Kauffman MD Primary Care Provide r Reason for Visit * Reason Comments Med Refill Encounter Details Date Type Department Care Team ([facility] Contact Info) Description 03/16/2023 Refill [facility] MEDICINE 230 [place] [address] Chelsi Kauffman MD 230 [place] [address] Dry eyes Social History Tobacco Use Types [...] Description 08/28/2024 9:00 AM EDT Office Visit [facility] OPTOMETRY [address] [place] [address] RitoKennedi blandon, OD 230 [place] [address] 09/17/2024 9:45 AM EDT Office Visit [facility] MEDICINE 230 [place] [address] 09/23/2024 11:15 AM EDT Office Visit [facility] MEDICINE 230 [place] [address] Chelsi Kauffman MD 230 [place] [address] 09/24/2024 9:00 AM EDT Office Visit [facility] ADULT DENTAL 230 [place] [address] Aries Carolina DDS 230 [place] [address] documented as of this encounter Visit Diagnoses Diagnosis Dry eyes Unspecified tear film insufficiency documented in this encounter Additional Health Concerns Assessment Noted Time PHQ-9 Depression Total Score: 24 023 2:25 PM EDT documented as of this encounter Care Teams Hand Hide Stretcher Relationship Specialty Start Date End Date Chelsi Kauffman MD [address] [place] [address] PCP - General Family Medicine 12/20/18 documented as of this encounter
--- OUTSIDE RECORDS SUMMARY | 2024-08-26 08:21 | XMS_ITS | Encounter Summary ---
Author Organization [employer] Address [address] [place] [address] 7 [place] [address] Care Team Providers Care Card Clothier Name Role Phone Chelsi Kauffman MD Primary Care Provide r Encounter Details Date Type Department Care Team (Latest Contact Info) Description 11/23/2021 Abstract [facility] CONVERSIONS Dental, Provider, DDS Social [...] Care Team ( st Contact Info) Description 08/28/2024 9:00 AM EDT Office Visit [facility] OPTOMETRY [address] [place] [address] Kennedi Veras, OD 230 [place] [address] 09/17/2024 9:45 AM EDT Office Visit [facility] MEDICINE [address] [place] [address] 09/23/2024 11:15 AM EDT Office Visit [facility] MEDICINE [address] [place] [address] Chelsi Kauffman MD [address] [place] [address] 09/24/2024 9:00 AM EDT Office Visit [facility] ADULT DENTAL 230 [place] [address] Aries Carolina DDS 230 [place] [address] documented as of this encounter Visit Diagnoses Not on filedocumented in this encounter Care Teams Card Clothier Relationship Specialty Start Date End Date Chelsi Kauffman MD [address] [place] [address] PCP - General Family Medicine 12/20/18 documented as of this encounter
--- OUTSIDE RECORDS SUMMARY | 2024-08-26 08:21 | XMS_ITS | Encounter Summary ---
Author Organization [employer] Address 75 [facility] 7 [place] [address] Care Team Providers Care Oral Therapist Name Role Phone Chelsi Kauffman MD Primary Care Provide r Reason for Visit * Reason Comments Med Refill Encounter Details Date Type Department Care Team ([facility] Contact Info) Description 05/09/2023 Refill [facility] MEDICINE 230 [place] [address] Chelsi Kauffman MD 230 [place] [address] Migraine without aura, not refractory Social History [...] Description 08/28/2024 9:00 AM EDT Office Visit [facility] OPTOMETRY 267 [place] [address] Rito, Kennedi, OD 230 [place] [address] 09/17/2024 9:45 AM EDT Office Visit [facility] MEDICINE 230 [place] [address] 09/23/2024 11:15 AM EDT Office Visit [facility] MEDICINE 230 [place] [address] Chelsi Kauffman MD 230 [place] [address] 09/24/2024 9:00 AM EDT Office Visit [facility] ADULT DENTAL 230 [place] [address] Aries Carolina DDS 230 [place] [address] documented as of this encounter Visit Diagnoses Diagnosis Migraine without aura, not refractory documented in this encounter Additional Health Concerns Assessment Noted Time PHQ-9 Depression Total Score: 0 04/25/19 24 9:30 AM EST documented as of this encounter Care Teams Oral Therapist Relationship Specialty Start Date End Date Chelsi Kauffman MD 230 [place] [address] PCP - General Family Medicine 12/20/18 documented as of this encounter
--- OUTSIDE RECORDS SUMMARY | 2024-08-26 08:21 | XMS_ITS | Encounter Summary ---
Author Organization [employer] Address 75 [facility] 7t [place] [address] Care Team Providers Care Shirt Creaser Name Role Phone Chelsi Kauffman MD Primary Care Provide r Reason for Visit * Reason Comments Med Refill Encounter Details Date Type Department Care Team ([facility] Contact Info) Description 04/04/2023 Refill [facility] MEDICINE 230 [place] [address] Chelsi Kauffman MD 230 [place] [address] Asthma in adult, moderate persistent, uncomplicated Social [...] Description 08/28/2024 9:00 AM EDT Office Visit [facility] OPTOMETRY [address] [place] [address] Kennedi Veras, OD 230 [place] [address] 09/17/2024 9:45 AM EDT Office Visit [facility] MEDICINE 230 [place] [address] 09/23/2024 11:15 AM EDT Office Visit [facility] MEDICINE 230 [place] [address] Chelsi Kauffman MD [address] [place] [address] 09/24/2024 9:00 AM EDT Office Visit [facility] ADULT DENTAL 230 [place] [address] Aries Carolina DDS [address] [place] [address] documented as of this encounter Visit Diagnoses Diagnosis Asthma in adult, moderate persistent, uncomplicated documented in this encounter Additional Health Concerns Assessment Noted Time PHQ-9 Depression Total Score: 24 023 2:25 PM EDT documented as of this encounter Care Teams Shirt Creaser Relationship Specialty Start Date End Date Chelsi Kauffman MD 230 [place] [address] PCP - General Family Medicine 12/20/18 documented as of this encounter
--- OUTSIDE RECORDS SUMMARY | 2024-08-26 08:21 | XMS_ITS | Encounter Summary ---
Author Organization [employer] Address 75 [facility] 7 [place] [address] Care Team Providers Care Brush Cutter Name Role Phone Chelsi Kauffman MD Primary Care Provide r Reason for Visit * Reason Comments Med Refill Encounter Details Date Type Department Care Team ([facility] Contact Info) Description 03/31/2023 Refill [facility] MEDICINE 230 [place] [address] Chelsi Kauffman MD 230 [place] [address] Dermatitis, seborrheic; Polyarthralgia Social History Tobacco Use [...] Description 08/28/2024 9:00 AM EDT Office Visit [facility] OPTOMETRY [address] [place] [address] RitoKennedi blandon, OD 230 [place] [address] 09/17/2024 9:45 AM EDT Office Visit [facility] MEDICINE 230 [place] [address] 09/23/2024 11:15 AM EDT Office Visit [facility] MEDICINE 230 [place] [address] Chelsi Kauffman MD [address] [place] [address] 09/24/2024 9:00 AM EDT Office Visit [facility] ADULT DENTAL 230 [place] [address] Aries Carolina DDS [address] [place] [address] documented as of this encounter Visit Diagnoses Diagnosis Dermatitis, seborrheic Unspecified seborrheic dermatitis Polyarthralgia Pain in joint, multiple sites documented in this encounter Additional Health Concerns Assessment Noted Time PHQ-9 Depression Total Score: 24 023 2:25 PM EDT documented as of this encounter Care Teams Brush Cutter Relationship Specialty Start Date End Date Chelsi Kauffman MD [address] [place] [address] PCP - General Family Medicine 12/20/18 documented as of this encounter
--- OUTSIDE RECORDS SUMMARY | 2024-08-26 08:21 | XMS_ITS | Encounter Summary ---
Author Organization [employer] Address 75 [facility] 7t [place] [address] Care Team Providers Care Director Medical Economics Name Role Phone Chelsi Kauffman MD Primary Care Provide r Encounter Details Date Type Department Care Team (Late st Contact Info) Description 01/17/2023 Abstract [facility] MEDICINE 230 [place] [address] Griselda Segal Social History Tobacco Use Types [...] Description 08/28/2024 9:00 AM EDT Office Visit [facility] OPTOMETRY [address] [place] [address] Kennedi Veras, OD 230 [place] [address] 09/17/2024 9:45 AM EDT Office Visit [facility] MEDICINE 230 [place] [address] 09/23/2024 11:15 AM EDT Office Visit [facility] MEDICINE [address] [place] [address] Chelsi Kauffman MD 230 [place] [address] 09/24/2024 9:00 AM EDT Office Visit [facility] ADULT DENTAL 230 [place] [address] Aries Carolina DDS [address] [place] [address] documented as of this encounter Procedures Procedure Name Priority Date/Time Associated Diagnosis Comments COLONOSCOPY Routine 08/25/2022 documented in this encounter Results * Colonoscopy (08/25/2022) Colonoscopy Normal Normal Narrative Griselda Segal - 08/25/2022 Recommended 1 year follow up due to poor prep Historical Provider HEALTH MAINTENANCE Final Result documented in this encounter Visit Diagnoses Not on filedocumented in this encounter Additional Health Concerns Assessment Noted Time PHQ-9 Depression Total Score: 24 07/26/2 023 2:25 PM EDT documented as of this encounter Care Teams Director Medical Economics Relationship Specialty Start Date End Date Chelsi Kauffman MD 230 [place] [address] PCP - General Family Medicine 12/20/18 documented as of this encounter
--- OUTSIDE RECORDS SUMMARY | 2024-08-26 08:21 | XMS_ITS | Encounter Summary ---
Author Organization [employer] Address 75 [facility] 7 [place] [address] Care Team Providers Care Puzzle Assembler Name Role Phone Chelsi Kauffman MD Primary Care Provide r Reason for Visit * Reason Comments Med Refill Encounter Details Date Type Department Care Team ([facility] Contact Info) Description 09/14/2023 Refill [facility] MEDICINE 230 [place] [address] Chelsi Kauffman MD 230 [place] [address] Polyarthralgia Social History Tobacco Use Types Packs/Day Years Used Date Smoking Tobacco: Never Passive Smoke Exposure: Never Smokeless Tobacco: Never Depression Answer Date Recorded Patient Health Questionnaire-9 Score 0 04/25/2023 Patient Health Questionnaire-9 Score 0 04/25/2023 Last PHQ-9: Questionnaire Data Not on file 0 04/25/2023 Housing Stability Answer Date Recorded What is your housing situation today? I have mnoi tellez 01/26/[address] you [...] Description 08/28/2024 9:00 AM EDT Office Visit [facility] OPTOMETRY [address] [place] [address] Kennedi Veras, OD 230 [place] [address] 09/17/2024 9:45 AM EDT Office Visit [facility] MEDICINE 230 [place] [address] 09/23/2024 11:15 AM EDT Office Visit [facility] MEDICINE 230 [place] [address] Chelsi Kauffman MD 230 [place] [address] 09/24/2024 9:00 AM EDT Office Visit [facility] ADULT DENTAL 230 [place] [address] Aries Carolina DDS 230 [place] [address] documented as of this encounter Goals Goal Patient Goal Type Associated Problems Recent Progress Patient-Stated? Author Record your blood pressure once per day Blood Pressure On track( 024 12:41 PM EDT) Alena Dowd Blood Pressure < 140/90 Blood Pressure 124/72(2024 10:54 AM EDT) No Alena Cerda documented as of this encounter Visit Diagnoses Diagnosis Polyarthralgia Pain in joint, multiple sites documented in this encounter Additional Health Concerns Assessment Noted Time PHQ-9 Depression Total Score: 0 04/25/19 24 9:30 AM EST documented as of this encounter Care Teams Puzzle Assembler Relationship Specialty Start Date End Date Chelsi Kauffman MD [address] [place] [address] PCP - General Family Medicine 12/20/18 documented as of this encounter
--- OUTSIDE RECORDS SUMMARY | 2024-08-26 08:22 | XMS_ITS | Encounter Summary ---
Author Organization [employer] Address [address] [place] [address] Care Team Providers Care Power Shovel Mechanic Name Role Phone Chelsi Kauffman MD Primary Care Provide r Reason for Visit * Reason Comments Med Refill Encounter Details Date Type Department Care Team (Late Contact Info) Description 09/18/2022 Refill [facility] MEDICINE 230 [place] [address] Chelsi Kauffman MD 230 [place] [address] Asthma in adult, moderate persistent, uncomplicated Social [...] Description 08/28/2024 9:00 AM EDT Office Visit [facility] OPTOMETRY [address] [place] [address] RitoKennedi blandon, OD 230 [place] [address] 09/17/2024 9:45 AM EDT Office Visit [facility] MEDICINE 230 [place] [address] 09/23/2024 11:15 AM EDT Office Visit [facility] MEDICINE [address] [place] [address] Chelsi Kauffman MD [address] [place] [address] 09/24/2024 9:00 AM EDT Office Visit [facility] ADULT DENTAL 230 [place] [address] Aries Carolina DDS 230 [place] [address] documented as of this encounter Visit Diagnoses Diagnosis Asthma in adult, moderate persistent, uncomplicated documented in this encounter Additional Health Concerns Assessment Noted Time PHQ-9 Depression Total Score: 24 023 2:25 PM EDT documented as of this encounter Care Teams Power Shovel Mechanic Relationship Specialty Start Date End Date Chelsi Kauffman MD [address] [place] [phone] PCP - General Family Medicine 12/20/18 documented as of this encounter
--- OUTSIDE RECORDS SUMMARY | 2024-08-26 08:22 | XMS_ITS | Encounter Summary ---
Author Organization [employer] Address [address] [place] [address] [address], [place] [address] Care Team Providers Care Freight Agent Name Role Phone Chelsi Kauffman MD Primary Care Provide r Reason for Visit * Reason Comments Med Refill Encounter Details Date Type Department Care Team (Late Contact Info) Description 08/29/[address] [facility] CHC MED & PEDS [address] [place] [address] Chelsi Kauffman MD 230 [place] [address] Mild intermittent asthma without complication Social History [...] Encounters Date Type Department Care Team (Late Contact Info) Description 08/28/2024 9:00 AM EDT Office Visit [facility] OPTOMETRY [address] [place] [address] Kennedi Veras, OD 230 [place] [address] 09/17/2024 9:45 AM EDT Office Visit [facility] MEDICINE [address] [place] [address] 09/23/2024 11:15 AM EDT Office Visit [facility] MEDICINE [address] [place] [address] Chelsi Kauffman MD 230 [place] [address] 09/24/2024 9:00 AM EDT Office Visit [facility] ADULT DENTAL [address] [place], [place] [phone] Aries Carolina DDS [address] [place] [address] documented as of this encounter Visit Diagnoses Diagnosis Mild intermittent asthma without complication documented in this encounter Additional Health Concerns Assessment Noted Time PHQ-9 Depression Total Score: 24 07/26/ 023 2:25 PM EDT documented as of this encounter Care Teams Freight Agent Relationship Specialty Start Date End Date Chelsi Kauffman MD [address] [place] [phone] PCP - General Family Medicine 12/20/18 documented as of this encounter
--- OUTSIDE RECORDS SUMMARY | 2024-08-26 08:22 | XMS_ITS | Encounter Summary ---
Author Organization [employer] Address 75 [facility] 7 [place] [address] Care Team Providers Care Pilot Submersible Name Role Phone Chelsi Kauffman MD Primary Care Provide r Reason for Visit * Reason Comments Med Refill Encounter Details Date Type Department Care Team ([facility] Contact Info) Description 05/06/2024 Refill [facility] MEDICINE [address] [place] [address] Chelsi Kauffman MD [address] [place] [address] Mild intermittent asthma without complication; Asthma in [...] the past 12 months, has t he [employer] gas, oil or water company threatened to [...] Description 08/28/2024 9:00 AM EDT Office Visit [facility] OPTOMETRY [address] [place] [address] Kennedi Veras, OD 230 [place] [address] 09/17/2024 9:45 AM EDT Office Visit [facility] MEDICINE [address] [place] [address] 09/23/2024 11:15 AM EDT Office Visit [facility] MEDICINE [address] [place] [address] Chelsi Kauffman MD 230 [place] [address] 09/24/2024 9:00 AM EDT Office Visit [facility] ADULT DENTAL [address] [place] [address] Aries Carolina DDS [address] [place] [address] documented as of this encounter Goals Goal Patient Goal Type Associated Problems Recent Progress Patient-Stated? Author Record your blood pressure once per day Blood Pressure On track( 024 12:41 PM EDT) No Alena Cerda Blood Pressure < 140/90 Blood Pressure 124/72(2024 10:54 AM EDT) No Alena Cerda documented as of this encounter Visit Diagnoses Diagnosis Mild intermittent asthma without complication Asthma in adult, moderate persistent, uncomplicated documented in this encounter Additional Health Concerns Assessment Noted Time PHQ-9 Depression Total Score: 0 01/17/20 24 11:19 AM EDT documented as of this encounter Care Teams Pilot Submersible Relationship Specialty Start Date End Date Chelsi Kauffman MD 230 [place] [address] PCP - General Family Medicine 12/20/18 documented as of this encounter
--- OUTSIDE RECORDS SUMMARY | 2024-08-26 08:22 | XMS_ITS | Clinical Summary ---
Author Organization [employer] Address [address] [place] [address] [address] [place] [address] Care Team Providers Care Asphalt Tamper Name Role Phone Chelsi Kauffman MD Primary Care Provide r Allergies No known active allergies Medications acetaminophen (Tylenol) 500 MG tablet Take 1 tablet by mouth every 4 (four) hours. Active esomeprazole (NexIUM) [address] capsuleIndicatio ns:Nausea and vomiting, unspecified vomiting type Take 1 capsule (40 mg) by mouth before breakfast. Do not open capsule. 30 capsule 023 Active clonazePAM (KlonoPIN) 0.5 MG tabletIndication s:Anxiety Take 1 tablet (0.5 mg) by mouth 2 times daily for 15 days. 30 tablet 023 Active dicyclomine (Bentyl) 20 MG tablet Take 20 mg by mouth 3 times daily. Active famotidine (Pepcid) 40 MG tablet Take 40 mg by mouth at bedtime. 023 Active melatonin 3 MG tablet TAKE 1 TO 2 TABLETS BY MOUTH DAILY AT BEDTIME NEEDED Active Simethicone Ultra Strength 180 MG capsule Take 180 mg by mouth 4 times daily. Active glucose blood (FREESTYLE LITE) test strip [...] EVEN IF PATIENT RESPONDS. 2 each 3 024 Active ketoconazole (NIZOral) 2 % shampoo APPLY TO SCALP AND LEAVE ON FOR 5 MINUTES THEN RINSE OFF TWICE A WEEK Active Alcohol Swabs (Alcohol Prep) 70 % padsIndications: Prediabetes USE TO TEST BLOOD SUGAR BEFORE MEALS AND SNACKS AND BEFORE BEDTIME 100 each 5 024 Active diclofenac (Cataflam) 50 MG tablet Take 50 mg by mouth 2 times daily. 024 Active albuterol (2.5 MG/3ML) 0.083% nebulizer solutionIndicati ons:Mild persistent asthma without complication INHALE 1 AMPULE USING A NEBULIZER THREE TIMES DAILY 90 mL 1 Active Blood Glucose Monitoring Suppl (ClassBadges Leonardo Lite) w/Device kitIndications:P rediabetes Use to test blood sugar 2 times daily 1 kit 024 Active hydroCHLOROthiaz gary (HYDRODiuril) 25 MG tablet TAKE 1 TABLET BY MOUTH EVERY MORNING 90 tablet 3 024 Active losartan (Cozaar) 100 MG tablet TAKE 1 TABLET BY MOUTH EVERY MORNING 90 tablet 3 024 Active Blood Pressure kit Use to check BP as directed. 1 kit 024 Active fluticasone (Flonase) 50 MCG/ACT nasal sprayIndications [...] EVENING MEAL 60 tablet 11 025 Active oxyCODONE (Roxicodone) 5 MG immediate release tabletIndication s:Chronic midline low back pain with right-sided sciatica,Polyart hralgia TAKE 1 TABLET BY MOUTH EVERY TWELVE HOURS NEEDED FOR SEVERE PAIN 56 tablet 025 Active albuterol (Ventolin HFA) 108 (90 Base) MCG/ACT inhalerIndicatio ns:Mild intermittent asthma without complication INHALE 2 PUFFS BY MOUTH EVERY 4 TO 6 HOURS NEEDED 18 g 025 Active cholecalciferol (D3 Super Strength) 50 MCG (2000 UT) capsuleIndicatio ns:Vitamin D deficiency, unspecified TAKE 1 CAPSULE BY MOUTH EVERY MORNING 90 capsule 1 025 Active polyvinyl alcohol (Liquifilm Tears) 1.4 % ophthalmic solutionIndicati ons:Dry eye syndrome of bilateral lacrimal glands PLACE 1 DROP IN EACH EYE THREE TIMES DAILY IN THE MORNING, AT NOON, AND AT BEDTIME NEEDED FOR DRY EYES 15 mL 1 025 Active Zepbound 12.5 MG/0.5ML solution auto-injectorInd ications:Class 3 severe obesity due to excess calories with serious comorbidity and body mass index (BMI) of 40.0 to 44.9 in adult INJECT ONE PEN (=12.5MG) SUBCUTANEOUSLY ONCE A WEEK DIRECTED 2 mL 025 Active cholecalciferol (D3 Super Strength) 50 MCG (2000 UT) capsuleIndicatio ns:Vitamin D deficiency, unspecified TAKE 1 CAPSULE BY MOUTH EVERY MORNING 90 capsule 1 024 2024 Discontinued polyvinyl alcohol (Liquifilm Tears) 1.4 % ophthalmic solutionIndicati ons:Dry eye syndrome of bilateral lacrimal glands PLACE 1 DROP IN EACH EYE THREE TIMES DAILY IN THE MORNING, AT NOON, AND AT BEDTIME NEEDED FOR DRY EYES 15 mL 1 024 2024 Discontinued albuterol (Ventolin HFA) 108 (90 Base) MCG/ACT inhalerIndicatio ns:Mild intermittent asthma without complication INHALE 2 PUFFS BY MOUTH EVERY 4 TO 6 HOURS NEEDED 18 g 025 2024 Discontinued(R eorder (will not trigger notification to Pharmacy)) Tirzepatide-Weig ht Management (Zepbound) 12.5 MG/0.5ML solution auto-injectorInd ications:Class 3 severe obesity due to excess calories with serious comorbidity and body mass index (BMI) of 40.0 to 44.9 in adult Inject 0.5 mL (12.5 mg) under the skin 1 (one) time per week. INJECT ONE PEN (=12.5 MG) SUBCUTANEOUSLY ONCE A WEEK 2 mL 025 2024 Discontinued sulfamethoxazole -trimethoprim (Bactrim DS) 800-160 MG tablet Take 1 tablet by mouth 2 times daily for 5 days. 10 tablet 025 2024 Active Problems Problem Noted Date Diagnosed Date [...] lumbar anterolisthesis Rx: oxycodone 5mg BID Last [employer] IN [employer] NANNY agreement: 04/23/24 Tier: III (Q4-6 months), Dr. [...] if is persistently high to contact me paper machine backtender pain 03/18/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 - Recommended watching Agilyx videos fro stretching and exercises that can [...] Encounters Date Type Department Care Team Description 08/22/2024 Telephone [facility] [address] [place] [address] Chelsi Kauffman MD Prior Authorization (CCA PA: Abner) 08/16/2024 Refill [facility] [address] [place] [address] Mariana Meyer MD Class 3 severe obesity due to excess calories with serious comorbidity and body mass index (BMI) of 40.0 to 44.9 in adult 08/12/2024 Telephone [facility] [address] [place] [phone] Chelsi Kauffman MD Referral 08/08/2024 11:00 AM EDT Office Visit [facility] [address] [place] [phone] Nicole Lay Xerostomia (Primary Dx); Teeth missing; Dental plaque 08/08/2024 Telephone [facility] [address] [place] [phone] Chelsi Kauffman MD Durable Medical Equipment (CCA Once Care: Grab Bars (Updated)) 08/08/2024 Telephone [facility] [address] [place] [phone] Chelsi Kauffman MD telephone call 08/06/2024 Refill [facility] [address] [place] [phone] Chelsi Kauffman MD Dry eye syndrome of bilateral lacrimal glands 08/05/2024 Refill [facility] [address] [place] [phone] Chelsi Kauffman MD Vitamin D deficiency, unspecified 08/02/2024 9:20 AM EDT Office Visit [facility] [address] [place] [phone] Lionel Pereira MD Dysuria (Primary Dx) 2024 Refill [facility] [address] [place] [address] Chelsi Kauffman MD Mild intermittent asthma without complication 07/25/2024 Refill [facility] [address] [place] [address] Chelsi Kauffman MD Chronic midline low back pain with right-sided sciatica; Polyarthralgia 07/16/2024 9:45 AM EDT Office Visit [facility] [address] [place] [address] Mackenzie Whatley FNP Anterolisthesis of lumbar spine (Primary Dx); Long-term current use of opiate analgesic 07/16/2024 Refill [facility] [address] [place] [address] Chelsi Kauffman MD Class 3 severe obesity due to excess calories with serious comorbidity and body mass index (BMI) of 40.0 to 44.9 in adult 07/16/2024 Travel 07/07/2024 Refill [facility] [address] [place] [address] Mariana Meyer MD Moderate episode of recurrent major depressive disorder (CMS/HCC); Migraine without aura, not refractory; Chronic toe pain, left foot; HTN (hypertension), benign; Essential hypertension 07/07/[address] [address] Chelsi Kauffman MD Essential hypertension 06/27/[address] [address] Chelsi Kauffman MD Durable Medical Equipment (DME Request: life alert and grab bars) 06/24/2024 Refill [facility] [address] [place] [address] Chelsi Kauffman MD Migraine without aura, not refractory 06/21/2024 11:00 AM EDT Office Visit [address] [address] Chelsi Kauffman MD Class 3 severe obesity due to excess calories with serious comorbidity and body mass index (BMI) of 40.0 to 44.9 in adult ([facility]) (Primary Dx); Essential hypertension; Chronic bilateral low back pain without sciatica; Unstable gait 06/21/2024 Travel 06/18/2024 9:45 AM EDT Office Visit [facility] [address] [place] [address] Mackenzie Whatley FNP Long-term current use of opiate analgesic (Primary Dx); Anterolisthesis of lumbar spine 06/18/2024 Refill [facility] [address] [place] [address] Chelsi Kauffman MD Chronic midline low back pain with right-sided sciatica; Polyarthralgia 06/18/2024 Travel 06/14/2024 Refill [facility] [address] [place] [address] Chelsi Kauffman MD Polyarthralgia 06/13/2024 Patient Outreach [facility] [address] [place] [address] Chelsi Kauffman MD Pre-visit Planning (SDOH screening negative and tobacco screening negative) 06/10/2024 Travel 06/10/2024 Telephone [facility] [address] [place] [address] Chelsi Kauffman MD [employer] [place] (Attend wipes) 06/06/2024 Refill [facility] [address] [place] [address] Chelsi Kauffman MD Vertigo; Hypertension, unspecified type; Preventative health care 05/31/2024 Orders Only [facility] [address] [place] [address] Chelsi Kauffman MD Nausea (Primary Dx) 05/30/2024 Orders Only [facility] [address] [place] [address] Chelsi Kauffman MD Class 3 severe obesity due to excess calories with serious comorbidity and body mass index (BMI) of 40.0 to 44.9 in adult ([facility]) (Primary Dx) 05/30/2024 Telephone [facility] [address] [place] [address] Chelsi Kauffman MD Nurse Triage 05/30/2024 Refill [facility] [address] [place], [place] [phone] Chelsi Kauffman MD 05/29/2024 Refill [facility] [address] [place], [place] [phone] Chelsi Kauffman MD Intertrigo from Last 3 Months Immunizations Immunization Administration Dates Next Due HepB-CpG 09/26/2023,08/15/2023 Influenza [...] your housing situation today? I have moni sing 11/02/[address] you li [...] Sign Reading Time Taken Comments Blood Pressure 124/72 08/08/2024 10:54 AM EDT Pulse 83 08/02/2024 9:17 AM [...] 08/28/2024 9:00 AM EDT Office Visit [facility] [address] [place] [address] Kennedi Veras, OD [address] [place] [address] 09/17/2024 9:45 AM EDT Office Visit [facility] [address] [place] [address] 09/23/2024 11:15 AM EDT Office Visit [facility] [address] [place] [address] Chelsi Kauffman MD [address] [place] [address] 09/24/2024 9:00 AM EDT Office Visit [facility] [address] [place] [address] Aries Carolina DDS [address] [place] [address] Health Maintenance Due Date Last Done Comments CT Colonography 1965 FIT DNA/Cologuard 1965 FIT 1965 FOBT 1965 Sigmoidoscopy 1965 Colonoscopy 08/26/2023 08/25/2022, 10/07/2020 Colorectal Cancer Screening 08/26/2023 RSV Patients and Patients Aged 60 years or older (1 - Risk 60-74 years 1-dose series) 2024 Depression Screening 01/16/2025 01/17/2024, 01/17/20 24 Dental Oral Exam 02/09/2025 08/08/2024, , 02/24/2023, Additional history exists Dental Prophylaxis 02/09/2025 08/08/2024, 0 10/31/2023, 02/24/2023, Additional history exists Alcohol/Substance Use Screening 02/19/2025 02/20/2024 Mammogram 03/01/2025 03/01/2024, 09/08, 09/23/2021, Additional history exists SDOH Screening 06/13/2025 06/13/2024 Diabetes: Hemoglobin A1C 07/10/2025 025, 01/17/2024, 08/19/2022, Additional history exists Tobacco Screening 08/08/2025 08/08/2024 Dental X-Ray: Bitewings 08/09/2025 08/09/19 25, 02/24/2023, 11/23/2021, Additional history exists Dental X-Ray: Full Mouth 02/25/2026 02/24/2023, 12/09/2018 [...] patient's age to complete this topic Meningococcal B Vaccine Aged Out No l onger eligible based on patient's age to complete [...] 124/72(2024 10:54 AM EDT) No Alena Cerda Procedures Procedure Name Priority Date/Time Associated Diagnosis Comments COMPREHENSIVE PERIODONTAL EVALUATION - NEW OR ESTABLISHED PATIENT Routine 08/08/2024 11:00 AM EDT PERIODIC ORAL EVALUATION - ESTABLISHED PATIENT Routine 08/08/2024 11:00 AM EDT 20 INTRAORAL - PERIAPICAL EACH ADDITIONAL RADIOGRAPHIC IMAGE Routine 08/08/2024 11:00 AM EDT ORAL HYGIENE INSTRUCTIONS Routine 08/08/2024 11:00 AM EDT Xerostomia Teeth missing Dental plaque TOPICAL APPLICATION OF FLUORIDE VARNISH Routine 08/08/2024 11:00 AM EDT Xerostomia Teeth missing Dental plaque INTRAORAL - PERIAPICAL FIRST RADIOGRAPHIC IMAGE Routine 08/08/2024 11:00 AM EDT Xerostomia Teeth missing Dental plaque INTRAORAL - PERIAPICAL EACH ADDITIONAL RADIOGRAPHIC IMAGE Routine 08/08/2024 11:00 AM EDT Xerostomia Teeth missing Dental plaque BITEWINGS - 2 RADIOGRAPHIC IMAGES Routine 08/08/2024 11:00 AM EDT Xerostomia Teeth missing Dental plaque PROPHYLAXIS - ADULT Routine 08/08/2024 1 1:00 AM EDT Xerostomia Teeth missing Dental plaque POCT URINALYSIS DIPSTICK Routine 08/02/2024 10:00 AM EDT Dysuria CULTURE, URINE, ROUTINE Routine 08/02/2024 9:59 AM EDT Dysuria POCT ANKIA-14 URINE DRUG SCREEN Routine 07/16/2024 10:55 AM [...] AM EST Screening mammogram for breast cancer HPV MRNA E6/E7 REFLEX TO HPV 16, [...] Comment:Small Urine 08/02/2024 10:0 0 AM EDT Linoel Pereira MD POINT OF CARE TEST ENTER/EDIT OR DERABLES Final Result * Culture, Urine, Routine (08/02/2024 9:59 AM EDT) Urine Urine specimen obtained by clean catch procedure / Unknown 08/02/2024 9:59 AM EDT 08/02/2024 4:18 PM EDT Comment:UACC Narrative [facility] - 08/04/2024 7:58 AM EDT Proteus mirabilis Quant > 100,000 cfu/mL Proteus mirabilis: Ampicillin <=2(S) Proteus mirabilis: Cefazolin (Urine) 4(S) Proteus mirabilis: Cefepime <=0.12(S) Proteus mirabilis: Ceftriaxone <=0.25(S) Proteus mirabilis: Ciprofloxacin <=0.06(S) Proteus mirabilis: Gentamicin <=1(S) Proteus mirabilis: Nitrofurantoin 128(R) Proteus mirabilis: Trimethoprim/Sulfamethoxazole <=20(S) Specimen Source: Urine clean catch Lionel Pereira MD LAB MICROBIOLOGY - GENERAL ORDER ANA ROSA Final Result [facility] [address] [place] [address] [phone] * POCT ANIKA-14 Urine Drug Screen (07/16/2024 10:55 AM EDT) Only the most recent of2 resultswithin the time period is included. TCA, Urine Positive Oxycodone Screen, Urine Positive Urine Urine specimen obtained by clean catch procedure / Unknown 07/16/2024 10:55 AM EDT Mackenzie Phylicia SANDWICH HAND POINT OF CARE TEST ENTER/EDIT ORDERABLES Final Result * Vitamin D, 25-Hydroxy, Total, Immunoassay (07/10/2024 12:13 PM EDT) Vitamin D 25-OH Total 47.8 >30 ng/mL [facility] Comment: Health Based Reference Values*< 20 ??ng/mL ??Dtppytxek27-63 ng/mL ??Insufficient> 30 ??ng/mL ??Sufficient*Todd ALBERT. N [...] BLOOD ORDERABLES Final Result Performing Organization Address [facility] Co de Phone Number [facility] [address] [place] [phone] * TSH with Reflex to Free T4 (07/10/2024 12:13 PM EDT) Pathologist [facility] TSH reflex Free T4 0.80 0.32 - 4.0 uIU/mL [facility] Blood Venous blood specimen / Unknown 07/10/2024 12:13 PM EDT 07/10/2024 12:13 PM EDT us Chelsi Reece MD LAB BLOOD ORDERABLES Final Result Performing Organization Address [facility] de Phone Number [facility] [address] [place] [phone] * (ABNORMAL) CBC auto differential (07/10/2024 12:13 PM EDT) Pathologist [facility] White Blood Count 10.7 4.8 - 10.8 X10*3/uL [facility] Red Blood Count 4.91 4.20 - 5.50 X10*6/uL [facility] Hemoglobin 14.0 12.0 - 16.0 g/dl [facility] Hematocrit 43.4 37.0 - 47.0 % [facility] Mean Corpuscular Volume 88.4 80.0 - 98.0 fL [facility] Mean Corpuscular Hemoglobin 28.5 27.0 - 33.0 pg [facility] Mean Corpuscular HGB Conc 32.3 31.0 - 35.0 g/dl [facility] Red Cell Distribution Width 13.7 11.0 - 16.0 % [facility] Platelet Count 268 160 - 400 X10*3/uL [facility] Mean Platelet Volume 11.0 9.4 - 12.3 fL [facility] Neutrophils Percent Auto 73.0 45 - 73 % [facility] Imm Gran Pct Auto 0.3 0.0 - 0.4 % [facility] Lymphocytes Percent Auto 18.3(L) 20 - 40 % [facility] Monocytes Percent Auto 6.8 2 - 11 % [facility] Eosinophils Percent Auto 1.2 0 - 4 % [facility] Basophils Percent Auto 0.4 0 - 2 % [facility] NRBC Pct Auto 0.0 0.0 - 0.2 /100WBC [facility] Neutrophils Absolute Auto 7.8 2.0 - 8.3 x10*3/uL [facility] Imm Gran Abs Auto 0.03 0.00 - 0.03 X10*3/uL [facility] Lymphocytes Absolute Auto 2.0 1.2 - 4.9 X10*3/uL [facility] Monocytes Absolute Auto 0.7 0.1 - 1.2 X10*3/uL [facility] Eosinophils Absolute Auto 0.1 0.0 - 0.4 X10*3/uL [facility] Basophils Absolute Auto 0.0 0.0 - 0.2 X10*3/uL [facility] NRBC Abs Auto 0.000 0.0 - 0.012 X10*3/uL [facility] Blood Venous blood specimen / Unknown 07/10/2024 12:13 PM EDT 07/10/2024 12:13 PM EDT us Chelsi Reece MD LAB BLOOD ORDERABLES Final Result [facility] [address] [place] [phone] [phone] * Hemoglobin A1c (07/10/2024 12:13 PM EDT) Hemoglobin A1c 5.7 <6.0 % [facility] Comment:Hemoglobin A1C Refer ence Range Adults: 4.8 - 6.0 % Non diabetic: < 6.0 % Goal: < 7.0 %Additional Action Suggested: > 8.0 %Note: Hemoglobin A1c results are invalid for patients with abnormal amounts of HbF. Blood transfusions may impact the HbA1c concentration in the patient sample. Estimated Average Glucose 117 mg/dL [facility] Comment:eAG = Estimated ave rage glucose which is %A1C expressed asaverage glucose, using the formula of the B0S-NtggjwqIvrnotd Glucose study (ADAG), Diabetes Care, Vol.31,#8,Nov. 2007 Blood Venous blood specimen / Unknown 07/10/2024 12:13 PM EDT 07/10/2024 12:13 PM EDT us Chelsi Reece MD LAB BLOOD ORDERABLES Final Result [facility] [address] [place] [phone] * (ABNORMAL) Lipid Panel, Standard (07/10/2024 12:13 PM EDT) Triglycerides 167(H) <150 mg/dL [facility] Comment:Desirable Triglyceri de: less than 150 mg/dLBorderline High Triglyceride 150-199 mg/dLHigh Triglyceride: 200-499 mg/dLVery High Triglyceride: greater than or equal to 5OO mg/dL Cholesterol 163 <200 mg/dL [facility] Comment:Desirable Cholestero l: less than 200 mg/dLBorderline High Cholesterol: 200-239 mg/dLHigh Cholesterol: greater than 239 mg/dL LDL Cholesterol Calculated 90 <100 mg/dL [facility] Comment:Desirable LDL: less than 100 mg/dLNear Optimal/Above Optimal LDL: 110- 129 mg/dLBorderline High LDL: 130-159 mg/dLHigh LDL: 160-189 mg/dLVery High LDL: greater than or equal to 190 mg/dL HDL Cholesterol 40(L) >40 mg/dL [facility] Comment:Desirable HDL: great er than 40 mg/dL Note: This HDL assay may give artificially low results in patients with liver disease. Blood Venous blood specimen / Unknown 07/10/2024 12:13 PM EDT 07/10/2024 12:13 PM EDT us Chelsi Reece MD LAB BLOOD ORDERABLES Final Result [facility] [address] [place] [phone] [phone] * (ABNORMAL) Comprehensive Metabolic Panel (07/10/2024 12:13 PM EDT) Sodium 139 135 - 145 mmol/L [facility] Potassium 4.2 3.3 - 5.1 mmol/L [facility] Chloride 110(H) 96 - 108 mmol/L [facility] Carbon Dioxide 24 22 - 29 mmol/L [facility] Anion Gap 9(L) 12 - 20 [facility] Urea Nitrogen (BUN) 16 9 - 16 mg/dL [facility] Creatinine, Serum 0.73 0.5 - 1.4 mg/dL [facility] Estimated Glomerular Filt Rate >60 [facility] Comment:Chronic Kidney Disea se: Estimated GFR < 60 mL/min/1.35n5Aygzyc Kidney Disease: Estimated GFR < 15 mL/min/1.73m2 Glucose 96 60 - 115 mg/dL [facility] Calcium 8.8 8.4 - 10.2 mg/dL [facility] Bilirubin, Total 0.2 0.0 - 1.0 mg/dL [facility] Aspartate Amino Transferase 21 5 - 31 U/L [facility] Alanine Aminotransferase 26 0 - 31 U/L [facility] Total Protein 7.1 6.5 - 8.0 g/dL [facility] Albumin Level 3.8 3.5 - 5.0 g/dL [facility] Alkaline Phosphatase 120(H) 39 - 117 U/L [facility] Blood Venous blood specimen / Unknown 07/10/2024 12:13 PM EDT 07/10/2024 12:13 PM EDT us Chelsi Reece MD LAB BLOOD ORDERABLES Final Result [facility] [address] [place] [phone] * BI Mammogram Screening Tomosynthesis Bilateral (03/01/2024 10:20 AM EST) Anatomical Region Laterality Modality Breast Bilateral Mammography 03/01/2024 10:2 0 AM EST Narrative 03/12/2024 10:52 AM EST ? [facility] [place] ? [address] ?[place] [address] ? Mammography Report ? Signed ? Patient: Up Chelsi Amanda ?MR#: [id number] ?? [id number] ? : 1965 ?Acct:[id number] ? Age/Sex: 58 / F ?ADM Date: 03/01/24 ? Loc: HO.MAMMO ? Attending Dr: Chelsi Reece MD ? Ordering Physician: Chelsi Kauffman MD ?Results: ?? 1Negative ? Date of Service: 03/01/24 ?Follow Up: 1 Year From Orig ?? inal Mammogram ? Procedure(s): MM tomosynthesis screening BI ?? Accession Number(s): [id number] ? cc: Chelsi Kauffman MD; Dc Bourne [...] DD/ 1020 ? TD/TT: 03/01/24 1045 ? [employer] Business [employer]st: ? Procedure Note Lis, Image - 03/12/2024 [facility] [address] [place] [address] [place] [address] Mammography Report Signed Patient: Chelsi Connors DMR#: [id number] : 1965Acct:[id number] Age/Sex: 58 / FADM Date: 03/01/24 Loc: POLO Attending Dr: Chelsi Reece MD Ordering Physician: Chelsi Kauffmanesults: 1Negative Date of Service: 03/01/24Follow Up: 1 Year From Orig inal Mammogram Procedure(s): MM tomosynthesis screening BI Accession Number(s): [id number] cc: Chelsi Kauffman MD; Dc Bourne MD [...] by: Taty Mccartney DO 03/12/2024 10:49 AM [facility] Dictated By: Taty Mccartney DO Signed By: <Electronically signed by Taty Mccartney DO in OV> 03/12/24 1049 DD/ 1020 TD/TT: 03/01/24 1045 [employer] Business Analyst: Chelsi Reece MD IMG BI PROCEDURES Fin al Result * Image-Guided Pap with Age-Based Screening??with CT/NG,??Trichomonas (07/04/2023 3:39 PM EDT) Trichomonas (NAAT) NOT DETECTED NOT DETECTED [facility] Comment:The analytical perfo rmance characteristics of thisassay have been determined by [employer]. Themodifications have not been cleared or approved bythe FDA. This assay has been validated pursuant to theCLIA regulations and is used for clinical purposes.For additional information, please refer tohttp://education.[employer]/faq/Trichomonastma(This link is being provided for information/educational purposes only.)THIS TEST WAS PERFORMED AT:[employer] [place] [phone] HANEY MD CTNG Ref Lab NOT DETECTED NOT DETECTED [facility] NG Ref Lab NOT DETECTED NOT DETECTED [facility] Pap Vial Vaginal structure / Unknown 07/04/2023 3:39 PM EDT 07/10/2023 8:55 AM EDT Narrative [facility] - 07/11/2023 8:28 PM EDT Collection Date: [id number]: Vagina Chelsi Reece MD LAB CYTOLOGY ORDERABL ES Final Result [facility] [address] [place] [address] [phone] * HPV mRNA E6/E7 w/Reflex to HPV Genotypes 16, 18/45 (07/04/2023 3:39 PM EDT) HPV nRNA E6/E7 Not Detected Not Detected [facility] Comment:Methodology: Transcr iption-Mediated AmplificationThis assay detects E6/E7 viral messenger RNA (mRNA) from 14high-risk HPV types (16,18,31,33,35,39,45,51,52,56,58,59,66,68).Cervical sources are required for HPV testing.If a vaginal source from a patient who has had atotal hysterectomy with removal of cervix wassubmitted, please contact the testing laboratoryfor alternative testing options.For additional information, please refer [email or web address]/faq/[email or web address](This link if provided for information/educational purposes only.)THIS TEST WAS PERFORMED AT:[employer] [place] [phone] HANEY MD HPV mRNA E6/E7 [facility] HPV 16 RNA [facility] HPV 18/45 RNA [facility] 07/04/2023 3:39 PM EDT 07/05/2023 2:00 PM EDT us Chelsi Reece MD LAB CYTOLOGY ORDERABL ES Final Result Performing Organization Address [facility] Co de Phone Number [facility] [address] [place] [address] [phone] * (ABNORMAL) Hepatitis C Ab (12/21/2022 10:55 AM EDT) Hepatitis C Antibody Reactive( A) Nonreactive [facility] Comment:Presumptive evidence of antibodies to HCV. 12/21/2022 10:5 5 AM EDT 12/21/2022 10:55 AM EDT [facility] External Provider LAB BLO OD ORDERABLES Final Result Performing Organization Address [facility] Number [facility] [address] [place] [phone] * HIV Ab/Ag ([place]) (12/21/2022 10:55 AM EDT) Pathologist [facility] HIV AB/AG Nonreactive Nonreactive [facility] Comment:HIV-1 p24 Ag and/or HIV-1/HIV-2 Ab not detected.A test result that is nonreactive does not exclude thepossibility of exposure to or infection with HIV-1 and/orHIV-2. Nonreactive results in this assay for individualswith prior exposure to HIV-1 and/or HIV-2 may be due toantigen and antibody levels that are below the limit ofdetection of this assay.The [employer] ([place] HIV Ag/Ab Combo assay result andsupplemental assay results should be interpreted inconjunction with the patient's clinical presentation,history and other laboratory results. If the results areinconsistent with clinical evidence, additional testing issuggested to confirm the result. 12/21/2022 10:5 5 AM EDT 12/21/2022 10:55 AM EDT Generic External Data Provider LAB BLOOD ORDERAB LES Final Result Performing Organization Address [facility] Co de Phone Number [facility] [address] [place] [address] [phone] * Colonoscopy (08/25/2022) Colonoscopy Normal Normal Narrative Griselda Segal - 08/25/2022 Recommended 1 year follow up due to poor prep us Historical Provider MD HEALTH MAINTENANCE Final Result from Last 3 Months or Most Recently Relevant to Health Maintenance Insurance FORMERLY [facility] < 65 [facility] Care Teams Asphalt Tamper Relationship Specialty Start Date End Date Chelsi Kauffman MD [address] [place] [phone] PCP - General Family Medicine 12/20/18
--- OUTSIDE RECORDS SUMMARY | 2024-08-26 08:22 | XMS_ITS | Encounter Summary ---
Author Organization [employer] Address [address] [facility] 7t [place] [address] Care Team Providers Care Avionics Electronics Technician Name Role Phone Chelsi Kauffman MD Primary Care Provide r Encounter Details Date Type Department Care Team ([facility] st Contact Info) Description 05/06/2024 Orders Only [facility] MEDICINE [address] [place], [place] [phone] Mariana Meyer MD [address] [place] [address] Social History Tobacco Use Types Packs/Day Years [...] Description 08/28/2024 9:00 AM EDT Office Visit [facility] OPTOMETRY [address] [place] [address] Kennedi Veras, OD 230 [place] [address] 09/17/2024 9:45 AM EDT Office Visit [facility] MEDICINE [address] [place] [address] 09/23/2024 11:15 AM EDT Office Visit [facility] MEDICINE [address] [place] [address] Chelsi Kauffman MD [address] [place] [address] 09/24/2024 9:00 AM EDT Office Visit [facility] ADULT DENTAL [address] [place] [address] Aries Carolina DDS [address] [place] [address] documented as of this encounter Goals Goal [...] documented as of this encounter Care Teams Avionics Electronics Technician Relationship Specialty Start Date End Date Chelsi Kauffman MD [address] [place] [address] PCP - General Family Medicine 12/20/18 documented as of this encounter
--- OUTSIDE RECORDS SUMMARY | 2024-08-26 08:22 | XMS_ITS | Encounter Summary ---
Author Organization [employer] Address [address] [place] [address] 7 [place] [address] Care Team Providers Care Natural Gas Field Processing Supervisor Name Role Phone Chelsi Kauffman MD Primary Care Provide r Reason for Visit * Reason Onset Date Comments triage 06/09/2022 Encounter Details Date Type Department Care Team ([facility] st Contact Info) Description 06/09/2022 Telephone [facility] MEDICINE [address] [place] [address] Chelsi Kauffman MD [address] [place] [address] triage Social History Tobacco Use Types Packs/Day [...] 06/09/2022 12:16 PM EST Triage call with [employer] Film Color Tester ID [id number] Pt reports third time with Covid. Covid [...] accepted this outcome Please contact pt at [phone] American Speaker documented in this encounter Plan of Treatment Upcoming Encounters Date Type Department Care Team (Late st Contact Info) Description 08/28/2024 9:00 AM EDT Office Visit [facility] OPTOMETRY [address] [place] [address] Kennedi Veras, OD [address] [place] [address] 09/17/2024 9:45 AM EDT Office Visit [facility] MEDICINE [address] [place] [address] 09/23/2024 11:15 AM EDT Office Visit [facility] MEDICINE [address] [place] [address] Chelsi Kauffman MD [address] [place] [address] 09/24/2024 9:00 AM EDT Office Visit [facility] ADULT DENTAL [address] [place] [address] Aries Carolina DDS [address] [place] [address] documented as of this encounter Visit Diagnoses Not on filedocumented in this encounter Care Teams Natural Gas Field Processing Supervisor Relationship Specialty Start Date End Date Chelsi Kauffman MD [address] [place] [address] PCP - General Family Medicine 12/20/18 documented as of this encounter
--- OUTSIDE RECORDS SUMMARY | 2024-08-26 08:22 | XMS_ITS | Encounter Summary ---
Author Organization [employer] Address [address] [place] [address] 7 [place] [address] Care Team Providers Care Rating Officer Name Role Phone Chelsi Kauffman MD Primary Care Provide r Reason for Visit * Reason Comments Med Refill Encounter Details Date Type Department Care Team ([facility] Contact Info) Description 08/24/2022 Refill [facility]S [address] [place] [address] Mariana Meyer MD [address] [place] [address] Social History Tobacco Use Types Packs/Day Years [...] Upcoming Encounters Date Type Department Care Team ([facility] Contact Info) Description 08/28/2024 9:00 AM EDT Office Visit [facility] OPTOMETRY [address] [place], [place] [phone] Kennedi Veras, OD [address] [place] [address] 09/17/2024 9:45 AM EDT Office Visit [facility] MEDICINE [address] [place] [address] 09/23/2024 11:15 AM EDT Office Visit [facility] MEDICINE [address] [place] [address] Chelsi Kauffman MD [address] [place] [address] 09/24/2024 9:00 AM EDT Office Visit [facility] ADULT DENTAL [address] [place], [place] [phone] Aries Carolina DDS [address] [place] [address] documented as of this encounter Visit Diagnoses Not on filedocumented in this encounter Additional Health Concerns Assessment Noted Time PHQ-9 Depression Total Score: 24 023 2:25 PM EDT documented as of this encounter Care Teams Rating Officer Relationship Specialty Start Date End Date Chelsi Kauffman MD [address] [place] [address] [phone] PCP - General Family Medicine 12/20/18 documented as of this encounter
--- OUTSIDE RECORDS SUMMARY | 2024-08-26 08:22 | XMS_ITS | Encounter Summary ---
Author Organization [employer] Address 75 [facility] 7 [place] [address] Care Team Providers Care Dye Reel Operator Helper Name Role Phone Chelsi Kauffman MD Primary Care Provide r Reason for Visit * Reason Comments Med Refill Encounter Details Date Type Department Care Team ([facility] st Contact Info) Description 11/10/2023 Refill [facility] MEDICINE [address] [place] [address] Chelsi Kauffman MD 230 [place] [address] Chronic toe pain, left foot Social History [...] 08/28/2024 9:00 AM EDT Office Visit [facility] OPTOMETRY [address] [place] [address] Kennedi Veras, OD [address] [place] [address] 09/17/2024 9:45 AM EDT Office Visit [facility] MEDICINE [address] [place] [address] 09/23/2024 11:15 AM EDT Office Visit [facility] MEDICINE [address] [place] [address] Chelsi Kauffman MD [address] [place] [address] 09/24/2024 9:00 AM EDT Office Visit [facility] ADULT DENTAL [address] [place] [address] Aries Carolina DDS [address] [place] [address] documented as of this encounter Goals Goal Patient Goal Type Associated Problems Recent Progress Patient-Stated? Author Record your blood pressure once per day Blood Pressure On track( 024 12:41 PM EDT) Alena Dowd Blood Pressure < 140/90 Blood Pressure 124/72(2024 10:54 AM EDT) Alena Dowd documented as of this encounter Visit Diagnoses Diagnosis Chronic toe pain, left foot documented in this encounter Additional Health Concerns Assessment Noted Time PHQ-9 Depression Total Score: 0 04/25/19 24 9:30 AM EST documented as of this encounter Care Teams Dye Reel Operator Helper Relationship Specialty Start Date End Date Chelsi Kauffman MD [address] [place] [address] PCP - General Family Medicine 12/20/18 documented as of this encounter
--- OUTSIDE RECORDS SUMMARY | 2024-08-26 08:22 | XMS_ITS | Encounter Summary ---
Author Organization [employer] Address [address] [place] [address] 7 [place] [address] Care Team Providers Care Director Of Home Care Hospice Name Role Phone Chelsi Kauffman MD Primary Care Provide r Reason for Visit * Reason Onset Date Comments Reschedule 06/13/2023 Encounter Details Date Type Department Care Team ([facility] st Contact Info) Description 06/13/2023 Telephone [facility] MEDICINE [address] [place] [address] Chelsi Kauffman MD [address] [place] [address] Reschedule Social History Tobacco Use Types Packs/Day [...] 04/07 Derm appointment. Please contact pt at [phone] documented in this encounter Plan of Treatment Upcoming Encounters Date Type Department Care Team (Late st Contact Info) Description 08/28/2024 9:00 AM EDT Office Visit [facility] OPTOMETRY [address] [place] [address] Kennedi Veras, OD 230 [place] [address] 09/17/2024 9:45 AM EDT Office Visit [facility] MEDICINE [address] [place] [address] 09/23/2024 11:15 AM EDT Office Visit [facility] MEDICINE [address] [place] [address] Chelsi Kauffman MD [address] [place] [address] 09/24/2024 9:00 AM EDT Office Visit [facility] ADULT DENTAL 230 [place] [address] Aries Carolina DDS [address] [place] [address] documented as of this encounter Visit Diagnoses Not on filedocumented in this encounter Additional Health Concerns Assessment Noted Time PHQ-9 Depression Total Score: 0 04/25/19 24 9:30 AM EST documented as of this encounter Care Teams Director Of Home Care Hospice Relationship Specialty Start Date End Date Chelsi Kauffman MD [address] [place] [address] PCP - General Family Medicine 12/20/18 documented as of this encounter
--- OUTSIDE RECORDS SUMMARY | 2024-08-26 08:22 | XMS_ITS | Encounter Summary ---
Author Organization [employer] Address [address] [facility] 7t [place] [address] Care Team Providers Care Mechanic Recovery Name Role Phone Chelsi Kauffman MD Primary Care Provide r Encounter Details Date Type Department Care Team ([facility] st Contact Info) Description 03/25/2024 Telephone [facility] [address] [place] [address] Chelsi Kauffman MD [address] [place] [address] Social History Tobacco Use Types Packs/Day Years [...] Description 08/28/2024 9:00 AM EDT Office Visit [facility] OPTOMETRY [address] [place] [address] Kennedi Veras, OD [address] [place] [address] 09/17/2024 9:45 AM EDT Office Visit [facility] [address] [place] [address] 09/23/2024 11:15 AM EDT Office Visit [facility] [address] [place] [address] Chelsi Kauffman MD [address] [place] [address] 09/24/2024 9:00 AM EDT Office Visit [facility] ADULT DENTAL [address] [place] [address] Aries Carolina DDS [address] [place] [address] documented as of this encounter Goals Goal [...] documented as of this encounter Care Teams Mechanic Recovery Relationship Specialty Start Date End Date Chelsi Kauffman MD [address] [place] [address] PCP - General Family Medicine 12/20/18 documented as of this encounter
--- OUTSIDE RECORDS SUMMARY | 2024-08-26 08:22 | XMS_ITS | Encounter Summary ---
Author Organization [employer] Address [address] [place] [address] 7 [place] [address] Care Team Providers Care Psychometrist Name Role Phone Chelsi Kauffman MD Primary Care Provide r Reason for Visit * Reason Onset Date Comments Durable Medical Equipment 07/28/2022 Encounter Details Date Type Department Care Team ([facility] st Contact Info) Description 07/28/2022 Telephone [facility] MEDICINE [address] [place] [address] Chelsi Kauffman MD [address] [place] [address] Durable Medical Equipment Social History Tobacco Use [...] Miscellaneous Notes * Telephone Encounter - Nicole Jacome - 07/28/2022 4:11 PM EDT Scripts generated for providers signature * Telephone Encounter - Jw Ray - 07/28/2022 3:54 PM EDT Tc from pt requesting a script for wipes and a small shower chair. documented in this encounter Plan of Treatment Upcoming Encounters Date Type Department Care Team (Late st Contact Info) Description 08/28/2024 9:00 AM EDT Office Visit [facility] OPTOMETRY [address] [place] [address] Kennedi Veras, OD [address] [place] [address] 09/17/2024 9:45 AM EDT Office Visit [facility] MEDICINE [address] [place] [address] 09/23/2024 11:15 AM EDT Office Visit [facility] MEDICINE [address] [place] [address] Chelsi Kauffman MD [address] [place] [address] 09/24/2024 9:00 AM EDT Office Visit [facility] ADULT DENTAL [address] [place] [address] Aries Carolina DDS [address] [place] [address] documented as of this encounter Visit Diagnoses Not on filedocumented in this encounter Additional Health Concerns Assessment Noted Time PHQ-9 Depression Total Score: 24 07/26/ 023 2:25 PM EDT documented as of this encounter Care Teams Psychometrist Relationship Specialty Start Date End Date Chelsi Kauffman MD [address] [place] [address] PCP - General Family Medicine 12/20/18 documented as of this encounter
--- OUTSIDE RECORDS SUMMARY | 2024-08-26 08:22 | XMS_ITS | Encounter Summary ---
Author Organization [employer] Address [address] [place] [address] 7 [place] [address] Care Team Providers Care Coil Tier Name Role Phone Chelsi Kauffman MD Primary Care Provide r Reason for Referral * Consultation (Routine) - Closed Specialty Diagnoses / Procedures Referred By Contac t Referred To Contact Physical Therapy Diagnoses Benign paroxysmal vertigo, unspecified laterality Christine Laurent MD [address] [place] [address] Phone: tel: fax: [facility] [address] [place] [address] Phone: tel: fax: Referral ID Status Reason Start Date Expiration Date V isits Requested Visits Authorized [id number] Closed Specialty Services Required 04/26/2024 04/26/2025 1 1 Encounter Details Date Type Department Care Team (Late st Contact Info) Description 04/26/2024 Orders Only [facility] MEDICINE [address] [place] [address] Christine Laurent MD [address] [place], [place] [phone] Benign paroxysmal vertigo, unspecified laterality (Primary Dx) [...] housing situation today? I have monisam tellez 11/02/[address] you [...] Description 08/28/2024 9:00 AM EDT Office Visit [facility] OPTOMETRY [address] [place] [address] Rito, Kennedi, OD [address] [place] [address] 09/17/2024 9:45 AM EDT Office Visit [facility] [address] [facility] [place] [place] [phone] 09/23/2024 11:15 AM EDT Office Visit [facility] MEDICINE [address] [place] [address] Chelsi Kauffman MD 230 [place], [place] [phone] 09/24/2024 9:00 AM EDT Office Visit [facility] ADULT DENTAL [address] [place], [place] [phone] Aries Carolina DDS [address] [place], [place] [phone] Scheduled Referrals Name Type Priority Associated Diagnoses [...] documented as of this encounter Care Teams Coil Tier Relationship Specialty Start Date End Date Chelsi Kauffman MD [address] [facility] [place], [place] [phone] PCP - General Family Medicine 12/20/18 documented as of this encounter
--- OUTSIDE RECORDS SUMMARY | 2024-08-26 08:23 | XMS_ITS | Encounter Summary ---
Author Organization [employer] Address [address] [place] [address] 7 [place] [address] Care Team Providers Care Script Coordinator Name Role Phone Chelsi Kauffman MD Primary Care Provide r Reason for Visit * Reason Onset Date Comments Med Refill 05/30/2024 Encounter Details Date Type Department Care Team ([facility] st Contact Info) Description 05/30/2024 Refill [facility] MEDICINE [address] [place] [address] Chelsi Kauffman MD [address] [place] [address] Social History Tobacco Use Types Packs/Day Years [...] MG/0.5ML solution auto-injector To be sent to: [facility] - [place], [place] - [address] [place] [address] documented in this encounter Plan of Treatment Upcoming Encounters Date Type Department Care Team (Late st Contact Info) Description 08/28/2024 9:00 AM EDT Office Visit [facility] OPTOMETRY [address] [place] [address] Kennedi Veras, OD 230 [place] [address] 09/17/2024 9:45 AM EDT Office Visit [facility] MEDICINE [address] [place] [address] 09/23/2024 11:15 AM EDT Office Visit [facility] MEDICINE [address] [place] [address] Chelsi Kauffman MD [address] [place] [address] 09/24/2024 9:00 AM EDT Office Visit [facility] ADULT DENTAL [address] [place], [place] [phone] Aries Carolina DDS [address] [place] [address] documented as of this encounter Goals Goal [...] documented as of this encounter Care Teams Script Coordinator Relationship Specialty Start Date End Date Chelsi Kauffman MD [address] [place] [address] PCP - General Family Medicine 12/20/18 documented as of this encounter
--- OUTSIDE RECORDS SUMMARY | 2024-08-26 08:23 | XMS_ITS | Encounter Summary ---
Author Organization [employer] Address [address] [place] [address] 7 [place] [address] Care Team Providers Care Traffic Analysis Technician Name Role Phone Chelsi Kauffman MD Primary Care Provide r Reason for Visit * Reason Onset Date Comments Referral 08/12/2024 Encounter Details Date Type Department Care Team ([facility] st Contact Info) Description 08/12/2024 Telephone [facility] MEDICINE [address] [place] [address] Chelsi Kauffman MD [address] [place] [address] Referral Social History Tobacco Use Types Packs/Day Years [...] encounter Miscellaneous Notes * Telephone Encounter - Gema Jacome - 08/12/2024 9:59 AM EDT TC from pt requesting new referral : DATE: 08/12/2024 TIME: 10:00am Address: [address] [place] [address] Visits: 1 Facility Name: [facility] Physical Therapy Type of Specialist: physical therapy [id number] Provider : not provided Provider NPI : Facility NPI: [id number] Phone # : [phone] Fax #: [phone] documented in this encounter Plan of Treatment Upcoming Encounters Date Type Department Care Team ([facility] Contact Info) Description 08/28/2024 9:00 AM EDT Office Visit [facility] OPTOMETRY [address] [place] [address] Rito, Kennedi, OD [address] [place] [address] 09/17/2024 9:45 AM EDT Office Visit [facility] MEDICINE [address] [place] [address] 09/23/2024 11:15 AM EDT Office Visit [facility] MEDICINE [address] [place] [address] Chelsi Kauffman MD [address] [place] [address] 09/24/2024 9:00 AM EDT Office Visit [facility] ADULT DENTAL [address] [place] [address] Aries Carolina DDS [address] [place], [place] [phone] documented as of this encounter Goals Goal [...] documented as of this encounter Care Teams Traffic Analysis Technician Relationship Specialty Start Date End Date Chelsi Kauffman MD [address] [place] [address] PCP - General Family Medicine 12/20/18 documented as of this encounter
--- OUTSIDE RECORDS SUMMARY | 2024-08-26 08:23 | XMS_ITS | Encounter Summary ---
Author Organization [employer] Address [address] [place] [address] 7 [place] [address] Care Team Providers Care Service Plumber Name Role Phone Chelsi Kauffman MD Primary Care Provide r Reason for Visit * Reason Onset Date Comments Prior Authorization 08/22/2024 CCA PA: Jerel alvarenga Encounter Details Date Type Department Care Team ([facility] st Contact Info) Description 08/22/2024 Telephone [facility] MEDICINE [address] [place] [address] Chelsi Kauffman MD [address] [place] [address] Prior Authorization (CCA PA: Abner) Social History Tobacco Use Types Packs/Day Years [...] encounter Miscellaneous Notes * Telephone Encounter - Tyra Martines - 08/23/2024 2:45 PM EDT PA initiated on Covermymeds for Zepbound. Approval/denial pending. Hernandez: [id number] Rx #: [id number] * Telephone Encounter - Shonna Hale - 08/22/2024 2:52 PM EDT Tc from pt stating PA needed for Zepbound 12.5 MG/0.5ML solution auto-injector documented in this encounter Plan of Treatment Upcoming Encounters Date Type Department Care Team (Late st Contact Info) Description 08/28/2024 9:00 AM EDT Office Visit [facility] OPTOMETRY [address] [place] [phone] Kennedi Veras, OD 230 [place] [address] 09/17/2024 9:45 AM EDT Office Visit [facility] MEDICINE [address] [place] [address] 09/23/2024 11:15 AM EDT Office Visit [facility] MEDICINE [address] [place] [address] Chelsi Kauffman MD [address] [place] [address] 09/24/2024 9:00 AM EDT Office Visit [facility] ADULT DENTAL [address] [place] [address] Aries Carolina DDS [address] [place] [address] documented as of this encounter Goals Goal [...] documented as of this encounter Care Teams Service Plumber Relationship Specialty Start Date End Date Chelsi Kauffman MD [address] [place] [address] PCP - General Family Medicine 12/20/18 documented as of this encounter
--- NOTE | 2024-08-26 08:34 | A.OFFVIS_ITS ---
Intake Visit Reasons: Bulkamid follow up Intake Note: Patient presents today for a bulkamid follow up Urology Meds: Oxybutynin, Amitriptyline, Mirabegron, Pyridium Allergies to Antibiotic: None Blood Thinner: Aspirin PVR:243ml Counselor Manager Required: Yes Counselor Manager Services: Counselor Manager Offered & Declined Allergies No Known Allergies [No Known Allergies*] Allergy (Verified 08/26/24 08:41) HPI Comments Details: 08/26/24--Chelsi is a 59-year-old female who is being followed for mixed urinary incontinence she is status post bulkamid, urethral bulking for stress urinary incontinence on 10/03/2023. She is here with her sister who interprets for her. She was on anti cholinergic therapy Myrbetriq 50 mg and oxybutynin 10 mg which she stated that she stopped after bulkamid procedure. She states that sometimes she feels she does not empty the bladder all the way. Recently she has noticed some leakage associated with coughing. Also when she is sleeping she has a pad on her bed and when she wakes up there is a little bit of urine mcclendon. She wears a panty liner during the day which is not always wet. The patient is on hydrochlorothiazide, a diuretic twice a day, I have discussed with her that this will also impact her urine symptoms. I have discussed the importance of Kegel exercises. I will refer her to pelvic floor physical therapy. I have advised her that while urinating if she feels she is not completely empty to stay relax and see if more urine will come out while toileting. The patient states she is on a new medication to lose weight and I have advised that being overweight also impacts her pelvic floor and urination symptoms. Follow-up in 6 months, monitor PVR. As patient had recent UTI I will also check renal ultrasound. 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 Trichomonal infection Screen for STD (sexually transmitted disease) Well woman exam Post covid-19 condition, unspecified TOUSSAINT (dyspnea on exertion) Urge incontinence Overactive bladder Stress incontinence Distal radius fracture, left Fracture of left distal radius Colon cancer screening Abdominal cramping Well woman exam with routine gynecological exam Subcutaneous abscess Cellulitis Urgency incontinence Microscopic hematuria Hx of fracture of wrist Hx of sleep apnea Hx of vertigo COVID GERD (gastroesophageal reflux disease) Pre-diabetes Epigastric pain Abdominal cramping Primary osteoarthritis of knees, bilateral Morbid obesity Osteoarthritis Fibromyalgia Arthritis Hypertension Surgical History History of open reduction and internal fixation (ORIF) procedure Hx of tubal ligation Hx of colonoscopy History of cholecystectomy (~2018) Family History Father Stomach cancer Brother Stomach problems Mother Diabetes Social History Household Members: Family Housing: Apartment Do you presently have visiting nurse or other home services: No Alcohol intake: current Alcohol intake frequency: holidays/special occasions only Comment: SLEEPING Patient Tobacco Use Status: Former Tobacco user Tobacco use type: Cigarette Second Hand Smoke Exposure: No Advance Directives Date on File: 01/28/20 service: No Current occupational status: unemployed Sexual orientation: Straight/Heterosexual Gender identity: Female Review of Systems Const All systems reviewed & are unremarkable except as noted in HPI and below Reports no additional complaints Eyes Reports no additional complaints ENT Reports no additional complaints Card Reports no additional complaints Resp Reports no additional complaints GI Reports no additional complaints Reports as per HPI Musc Reports no additional complaints Skin/Breast Reports system reviewed and no additional complaints, except as documented Neuro Reports no additional complaints Psych Reports no additional complaints Endo Reports no additional complaints Segun/Lymph Reports no additional complaints Aller/Immun Reports no additional complaints Office Procedures Post Void Residual Post Residual Void Post Void Residual (PVR): [id number] Void Residual by ultrasound Results AMB Urinalysis, Automated UA Leukoctes 70 Maximus/uL Last Edit by Heather Brown on 08/26/24 12:09 UA Nitrite Negative Last Edit by Heather Brown on 08/26/24 12:09 UA Urobilinogen 17 mg/dL Last Edit by Heather Brown on 08/26/24 12:09 UA Protein 0.3 mg/dL Last Edit by Heather Brown on 08/26/24 12:09 UA pH 6.0 Last Edit by Heather Brown on 08/26/24 12:09 UA Blood 0 Tim/uL Last Edit by Heather Brown on 08/26/24 12:09 UA Specific [place] 1.020 Last Edit by Heather Brown on 08/26/24 12:09 UA Ketone Positive Last Edit by Heather Brown on 08/26/24 12:09 UA Bilirubin 17 mg/dL Last Edit by Heather Brown on 08/26/24 12:09 UA Glucose 5 mg/dL Last Edit by Heather Brown on 08/26/24 12:09 Results Reviewed Results Reviewed: Collected: 08/02/24 Status: COMP Req#: [id number] Received: 08/02/24 Source: [facility] Sp Desc: Clean Cat Subm Dr: ABDIRASHID GUTHRIE MD Ordered: Urine Culture Procedure Result Verified Urine Culture Final 08/04/24 Organism 1 Proteus mirabilis Quant > 100,000 cfu/mL P mirabili M.I.C. RX --------- --- Ampicillin <=2 S Cefazolin (Urine) 4 S Cefepime <=0.12 S Ceftriaxone <=0.25 S Ciprofloxacin <=0.06 S Gentamicin <=1 S Nitrofurantoin 128 R Trimethoprim/Sulfamethoxazole <=20 S Assessment & Plan Assessment & Plan (1) YOLA (stress urinary incontinence, female): Code(s): N39.3 - Stress incontinence (female) (male) Category: Medical (2) Urinary urgency: Code(s): R39.15 - Urgency of urination Category: Medical (3) UTI (urinary tract infection): Code(s): N39.0 - Urinary tract infection, site not specified Category: Medical (4) Obese: Code(s): E66.9 - Obesity, unspecified Category: Medical Plan The patient is on hydrochlorothiazide, a diuretic twice a day, I have discussed with her that this will also impact her urine symptoms. I have discussed the importance of Kegel exercises. I will refer her to pelvic floor physical therapy. I have advised her that while urinating if she feels she is not completely empty to stay relax and see if more urine will come out while toileting. The patient states she is on a new medication to lose weight and I have advised that being overweight also impacts her pelvic floor and urination symptoms. Follow-up in 6 months, monitor PVR. As patient had recent UTI I will also check renal ultrasound. Orders: Orders US renal BI 2 Weeks N39.0 - Urinary tract infection, site not specified, R39.15 - Urgency of urination Urine Culture Today N39.0 - Urinary tract infection, site not specified AMB Urinalysis Automated Today Z13.9 - Encounter for screening, unspecified Referrals Pelvic Manager Mortgage Referral N39.3 - Stress incontinence (female) (male), R39.15 - Urgency of urination Patient Instructions: The patient had an opportunity to ask questions regarding treatment plan. The patient expressed understanding and agreement with the above treatment plan. The patient is aware they should contact our office by phone for worsening of their current condition or the appearance of new symptoms. Compliance is encouraged with any medications and followup testing that is ordered. It is a privilege to be allowed the opportunity to participate in the urologic care of your patient. If you have any questions or concerns regarding treatment for the above conditions please do not hesitate to contact me. The office telephone contact is [phone]. This note is constructed in part using voice recognition software. While every effort has been made to ensure accuracy manufacturing associate errors may have been included. Yours sincerely, Niranjan Washburn MD Coding Level of Care Code Est Pt Level 4 (26560) Complex EM visit Add On G2211 Diagnoses YOLA (stress urinary incontinence, female) N39.3 Urinary urgency R39.15 UTI (urinary tract infection) N39.0 Obese E66.9 CPT Codes Post Residual Void - PVR CPT Code: 94646-Irwg Void Residual by ultrasound ([id number])
== END 2024-08-26 09:38 | disposition home or self-care (01) ==
LOC: HO.HUSH 08:18
PROVIDERS: PCP Family Medicine; Visit Provider Urology
DX: Z13.9 Encounter for screening, unspecified (principal)

== ENCOUNTER 2024-09-30 14:27 | Outpatient (REF) | payer OTHER, SELFPAY ==
--- NOTE | ~2024-09-30 | US_ITS ---
EXAMINATION: US KIDNEY BILATERAL HISTORY: R39.15 - Urgency of urination TECHNIQUE: Real-time grayscale ultrasound imaging of the kidneys was performed and images were reviewed. COMPARISON: Comparison is made with the prior examination dated 10/30/2019. FINDINGS: Right kidney: The right kidney measures 10.9 x 4.9 x 5.3 cm. Renal parenchymal echotexture and thickness are normal. There are no masses. There is a subcentimeter peripelvic cyst versus slight fullness of the renal pelvis. There are no calculi. Left Kidney: The left kidney measures 11.0 x 4.5 x 4.1 cm. Renal parenchymal echotexture is normal. There is a probable dromedary hump. There are no masses. There are subcentimeter peripelvic cysts versus slight fullness of the renal pelvis. No calculi are identified. US/US renal BI IMPRESSION: Probable bilateral subcentimeter peripelvic cysts. Electronically signed by: Robert Oliveira MD 09/30/2024 03:24 PM EDT
== END 2024-09-30 14:28 | disposition home or self-care (01) ==
LOC: HO.US 14:27
PROVIDERS: PCP Family Medicine; Visit Provider Urology
DX: N39.0 Urinary tract infection, site not specified (principal); R39.15 Urgency of urination
CPT/HCPCS: 76775

== ENCOUNTER → 2024-09-30 14:28 | Outpatient (BNV) | payer OTHER, SELFPAY | PROVIDERS: PCP Family Medicine; Visit Provider Radiology Diagnostic Radiology | DX: N28.1 Cyst of kidney, acquired (principal) | CPT/HCPCS: 76775 ==

== ENCOUNTER 2024-12-18 09:27 | Emergency (ER) | payer OTHER, SELFPAY ==
--- OUTSIDE RECORDS SUMMARY | 2024-12-17 09:45 | XMS_ITS | Encounter Summary ---
Author Organization [employer] Address [address] [facility] [address] [place] [address] Care Team Providers Care Consumer Banker Name Role Phone Chelsi Kauffman MD Primary Care Provide r Encounter Details Date Type Department Care Team (Latest Contact Info) Description 12/17/2024 9:45 AM EDT Office Visit [facility] [address] [place] [address] Mackenzie Whatley, LOAN AUDITOR [address] [place] [address] Anterolisthesis of lumbar spine (Primary Dx); Long-term current use of opiate analgesic Social History Tobacco Use Types Packs/Day Years [...] the past 12 months, has t he [email or web address], gas, oil or water [employer] threatened to shut off services in your [...] AM EDT documented as of this encounter Progress Notes * Mackenzie Whatley, MYRIAM - 12/17/2024 9:45 AM EDT Subjective: Chelsi Amanda is a 59 y.o. female w/ PMH GABRIELA, asthma, HTN, IBS, GERD, obesity who presents to the office for - Chronic Pain Clinic Group visits. Initial Group visit: 02/20/24 Group Topic: Stretching Presenter: Robyn Jacome RN - Intentional weight loss with Zepbound. Has been going to gym and feeling better overall in body. Chronic Pain History: Associated Diagnosis: lumbar anterolisthesis Relevant Imaging: Lumbar xray 02/2024: IMPRESSION: Grade 1 anterolisthesis of L4 on L5, L5 on S1, similar to previous. Multilevel lumbar spondylosis, slightly progressed from previous. No radiographic evidence of acute fracture Current pharm tx: Medication: Oxycodone 5mg Q12hr PRN. Diclofenac 50mg BID prn. lsnyzsnini-jpktgownyhmcw-wfvqmnmn 50-325-40 MG 1-2 tablets Q4hr PRN. States taking medication as prescribed. Non-pharm tx: Related Specialists: Pain medicine & Ortho Functional Goals: sleeping well Review of Systems Constitutional: Negative. Respiratory: Negative. Cardiovascular: Negative. Gastrointestinal: Negative. Musculoskeletal: Positive for back pain. Physical Exam Vitals and nursing note reviewed. Constitutional: Appearance: Normal appearance. HENT: Head: Normocephalic and atraumatic. Skin: General: Skin is warm and dry. Neurological: General: No focal deficit present. Mental Status: She is alert and oriented to person, place, and time. Psychiatric: Mood and Affect: Mood normal. Behavior: Behavior normal. Problem List Items Addressed This Visit Mental Health Long-term current use of opiate analgesic Overview Dx: lumbar anterolisthesis Rx: oxycodone 5mg BID Last SNAP SHEARER agreement: 04/23/24 Tier: III (Q4-6 months), Dr. Go 04/24/24 Current Assessment & Plan Timeline: - 04/23/24: Group- pill count/utox as expected - 06/18/24: Group visit - pill count/utox as expected - 07/16/24: Group visit - pill count/utox as expected - 09/17/24: Group visit - utox/pill count as expected - 12/17/24: Group visit - utox/pill count as expected Relevant Orders POCT ANIKA-14 Urine Drug Screen (Completed) Musculoskeletal and Injuries Anterolisthesis of lumbar spine - Primary Overview Lumbar xray 02/2024 IMPRESSION: Grade 1 anterolisthesis of L4 on L5, L5 on S1, similar to previous. Multilevel lumbar spondylosis, slightly progressed from previous. No radiographic evidence of acute fracture Current Assessment & Plan -Good engagement and participation with Group Medical Visit model -Encouraged multifactorial approach to pain control including pharm and non- pharm modalities -UTOX and Pill count as expected Follow up: 1-4 months for Group Chronic Pain Clinic. Follow up as scheduled with PCP, sooner as needed. * Shameka Brantley RN - 12/17/2024 9:45 AM EDT SNAP SHEARER alpaca farmer: PDMP reviewed today. Last fill date: 11/22/24 Oxycodone 5mg BID count was 8 anticipated 5 to be remaining. UTOX completed. Positive for OXY & TCA, Negative for AMP, BAR, BUP, BZO, MAYELA, FTY, MDMA, MET, MOP, MTD, PCP, THC. UTOX as expected. documented in this encounter Miscellaneous Notes * Assessment & Plan Note - MYRIAM Mckeon - 12/17/2024 12:58 PM EDT Associated Problem(s): Long-term current use of opiate analgesic Timeline: - 04/23/24: Group- pill count/utox as expected - 06/18/24: Group visit - pill count/utox as expected - 07/16/24: Group visit - pill count/utox as expected - 09/17/24: Group visit - utox/pill count as expected - 12/17/24: Group visit - utox/pill count as expected * Assessment & Plan Note - MYRIAM Mckeon - 12/17/2024 12:58 PM EDT Associated Problem(s): Anterolisthesis of lumbar spine -Good engagement and participation with Group Medical Visit model -Encouraged multifactorial approach to pain control including pharm and non- pharm modalities -UTOX and Pill count as expected documented in this encounter Plan of Treatment Upcoming Encounters Date Type Department Care Team (Late st Contact Info) Description 12/26/2024 11:30 AM EDT Office Visit [facility] OPT[facility] [address] [place] [address] Rito, Kennedi, OD [address] [place] [address] 02/28/2025 8:00 AM EST Office Visit [facility] D[facility] [address] [place] [address] Alireza, Nicole [address] [place] [address] 03/18/2025 9:45 AM EST Office Visit [facility] [address] [place] [address] documented as of this encounter Goals Goal Patient Goal Type Associated Problems Recent Progress Patient-Stated? Author Record your blood pressure once per day Blood Pressure On track( 024 12:41 PM EDT) No Alena Cerda Blood Pressure < 140/90 Blood Pressure 139/89(2024 11:09 AM EDT) No Alena Cerda documented as of this encounter Procedures Procedure Name Priority Date/Time Associated Diagnosis Comments POCT ANIKA-14 URINE DRUG SCREEN Routine 12/17/2024 10:29 AM EDT Long-term current use of opiate analgesic documented in this encounter Results * POCT ANIKA-14 Urine Drug Screen (12/17/2024 10:29 AM EDT) THC Negative Negative Cocaine Screen, Urine Negative Negative Opiate Screen, Urine Negative Negative Methamphetamine Screen Urine Negative Negative Amphetamine Screen, Urine Negative Negative Benzodiazepines Screen, Urine Negative Negative Barbiturate Screen, Urine Negative Negative Methadone Screen, Urine Negative Negative Buprenophine Screen, Urine Negative Negative TCA, Urine Positive Negative MDMA Urine Negative Negative ng/mL Oxycodone Screen, Urine Positive Negative Phencyclidine (PCP), Urine Negative Negative Propoxyphene, Urine Negative Negative Fentanyl, Urine Negative Negative Urine Urine specimen obtained by clean catch procedure / Unknown 12/17/2024 10:29 AM EDT Shameka Nichols RN - 12/17/2024 10:29 AM EDT UTOX cup Lot#[id number] Exp. 01/14/26 Internal Pass Control us Chelsi Reece MD POINT OF CARE TEST EN TER/EDIT ORDERABLES Final Result documented in this encounter Visit Diagnoses Diagnosis Anterolisthesis of lumbar spine- Primary Long-term current use of opiate analgesic Encounter for long-term (current) use of other medications documented in this encounter Additional Health Concerns Assessment Noted Time PHQ-9 Depression Total Score: 0 01/17/20 24 11:19 AM EDT documented as of this encounter Care Teams Consumer Banker Relationship Specialty Start Date End Date Chelsi Kauffman MD [address] [place] [address] PCP - General Family Medicine 12/20/18 documented as of this encounter
--- NOTE | ~2024-12-18 | CT_ITS ---
EXAMINATION: CT chest, CT abdomen and pelvis without contrast. TECHNIQUE: Trauma. COMPARISON: CT chest 11/17/2022 TECHNIQUE: 5 mm thin axial and reformatted 3 mm thin sagittal and coronal images of chest, abdomen and pelvis were obtained. DLP 1500 mGy/cm. This CT examination was performed using dose optimization techniques as appropriate, variously including the following: *Automated exposure control *Adjustment of mA and/or kV according to patient size (this includes techniques or standardized protocols for targeted exams where dose is matched to indication/reason for exam; i.e. extremities or head) *Use of iterative reconstruction technique. FINDINGS: CHEST: Lungs: The lungs are well-expanded and clear acute pneumonic process. There is no pulmonary nodule, mass or contusion. Minimal left basilar dependent atelectasis or pleural thickening. Mediastinum: Central trachea and the bronchi are widely patent. Thyroid lobes are not included in the [id number]. The heart size and the great vessels are normal caliber. No abnormal size mediastinal hilar lymph nodes seen. No pericardial effusion. Pleura: There is no pleural effusion, thickening or pneumothorax. Axilla: The bilateral axillary cyst small shotty lymph nodes which are benign. The chest wall is unremarkable. Osseous structures: There is no visible fracture. Mild straightening of thoracic kyphosis with mild ventral spondylosis mid and lower dorsal spine is noted. ABDOMEN AND PELVIS: Liver, ducts and gallbladder the liver is normal size, shape with mild attenuation. No focal lesion or intrahepatic ductal dilatation. Surgical galen are seen in the cul-de-sac bladder fossa likely from previous removal. Spleen: Unremarkable. Pancreas: Unremarkable. Adrenal glands: Unremarkable. Kidneys and ureter: Both kidneys are normal size, shape with cortical thickness. No radiopaque renal calculi or hydronephrosis. Retroperitoneum: The abdominal aorta is normal caliber. No retroperitoneal lymph nodes or mass seen. GI tract: The stomach is nondilated. The small bowel loops are normal caliber. Scattered stool is seen in the colon. No free air or free fluid. Appendix is seen. Abdominal wall: Small lumbrical hernia containing fat. Pelvis: The uterus is anteverted. The bladder is mildly distended. No adnexal mass or free fluid seen. No abnormal pelvic lymph nodes. Osseous structures: There is exaggerated kyphosis of the thoracal lumbar junction/lower thoracic spine. Grade 1 anterolisthesis L5 over S1 is noted. Moderate bilateral L5-S1 and L4-5 facet joint arthropathy and hypertrophy is noted. CT/CT abdomen pelvis wo IV con IMPRESSION: No acute fracture visualized chest or abdomen. DJD. Exaggerated thoracolumbar spine kyphosis. There is no acute process seen in the chest, abdomen or pelvis. The gallbladder is out. He Electronically signed by: Marvin Duong MD 12/18/2024 04:11 PM EDT
--- NOTE | ~2024-12-18 | CT_ITS ---
EXAMINATION: CT chest, CT abdomen and pelvis without contrast. TECHNIQUE: Trauma. COMPARISON: CT chest 11/17/2022 TECHNIQUE: 5 mm thin axial and reformatted 3 mm thin sagittal and coronal images of chest, abdomen and pelvis were obtained. DLP 1500 mGy/cm. This CT examination was performed using dose optimization techniques as appropriate, variously including the following: *Automated exposure control *Adjustment of mA and/or kV according to patient size (this includes techniques or standardized protocols for targeted exams where dose is matched to indication/reason for exam; i.e. extremities or head) *Use of iterative reconstruction technique. FINDINGS: CHEST: Lungs: The lungs are well-expanded and clear acute pneumonic process. There is no pulmonary nodule, mass or contusion. Minimal left basilar dependent atelectasis or pleural thickening. Mediastinum: Central trachea and the bronchi are widely patent. Thyroid lobes are not included in the gzlrm-oq-vjna. The heart size and the great vessels are normal caliber. No abnormal size mediastinal hilar lymph nodes seen. No pericardial effusion. Pleura: There is no pleural effusion, thickening or pneumothorax. Axilla: The bilateral axillary cyst small shotty lymph nodes which are benign. The chest wall is unremarkable. Osseous structures: There is no visible fracture. Mild straightening of thoracic kyphosis with mild ventral spondylosis mid and lower dorsal spine is noted. ABDOMEN AND PELVIS: Liver, ducts and gallbladder the liver is normal size, shape with mild attenuation. No focal lesion or intrahepatic ductal dilatation. Surgical galen are seen in the cul-de-sac bladder fossa likely from previous removal. Spleen: Unremarkable. Pancreas: Unremarkable. Adrenal glands: Unremarkable. Kidneys and ureter: Both kidneys are normal size, shape with cortical thickness. No radiopaque renal calculi or hydronephrosis. Retroperitoneum: The abdominal aorta is normal caliber. No retroperitoneal lymph nodes or mass seen. GI tract: The stomach is nondilated. The small bowel loops are normal caliber. Scattered stool is seen in the colon. No free air or free fluid. Appendix is seen. Abdominal wall: Small lumbrical hernia containing fat. Pelvis: The uterus is anteverted. The bladder is mildly distended. No adnexal mass or free fluid seen. No abnormal pelvic lymph nodes. Osseous structures: There is exaggerated kyphosis of the thoracal lumbar junction/lower thoracic spine. Grade 1 anterolisthesis L5 over S1 is noted. Moderate bilateral L5-S1 and L4-5 facet joint arthropathy and hypertrophy is noted. CT/CT chest wo IV con IMPRESSION: No acute fracture visualized chest or abdomen. DJD. Exaggerated thoracolumbar spine kyphosis. There is no acute process seen in the chest, abdomen or pelvis. The gallbladder is out. He Electronically signed by: Marvin Duong MD 12/18/2024 04:11 PM EDT
--- NOTE | ~2024-12-18 | CT_ITS ---
EXAMINATION: CT HEAD WITHOUT CONTRAST CLINICAL INFORMATION: trauma COMPARISON: None available. TECHNIQUE: Contiguous axial imaging was performed from the skull base to vertex without intravenous administration of contrast. This CT examination was performed using dose optimization techniques as appropriate, variously including the following: *Automated exposure control *Adjustment of mA and/or kV according to patient size (this includes techniques or standardized protocols for targeted exams where dose is matched to indication/reason for exam; i.e. extremities or head) *Use of iterative reconstruction technique DLP: 649.41 mGy-cm FINDINGS: No acute cortical disruption within the bony calvarium or the skull base. No acute intracranial hemorrhage, mass effect, midline shift, hydrocephalus or herniation. Amaya-white matter differentiation is normal. Multifocal patchy and confluent deep periventricular hypodensities involving centrum semiovale and prominence of the intra-axial CSF spaces cerebral sulci and ventricles. 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 No gross masses. Posterior cranial fossa contents demonstrated no gross masses or mass effect hemorrhage. Position of the cerebellar tonsils. Polypoid mucosal thickening, left maxillary sinus. No air-fluid levels in the paranasal sinuses. Tympanic cavities and mastoid cells are aerated. 7 mm extra-axial calcification left middle cranial fossa. No gross hematoma, intraconal or extraconal compartments of the orbits. Calcified plaques in the cavernous supracavernous segments both ICAs.. CT/CT head/brain wo IV con IMPRESSION: No acute fracture, bony calvarium. No acute intracranial hemorrhage. Small vessel occlusive disease. Global cerebral atrophy. Electronically signed by: Frantz Saenz MD 12/18/2024 04:02 PM EDT
--- NOTE | ~2024-12-18 | CT_ITS ---
EXAMINATION: CT CERVICAL SPINE WITHOUT CONTRAST CLINICAL INFORMATION: Injury. COMPARISON: None available. TECHNIQUE: Contiguous axial images through the cervical spine using 3 mm collimation with bone and soft tissue algorithm. Sagittal and coronal reformatted images acquired. DLP: 517.[address] examination was performed using dose optimization techniques as appropriate, variously including the following: *Automated exposure control *Adjustment of mA and/or kV according to patient size (this includes techniques or standardized protocols for targeted exams where dose is matched to indication/reason for exam; i.e. extremities or head) *Use of iterative reconstruction technique FINDINGS: Craniocervical junction is intact with normal alignment between the occipital condyles and lateral masses of C1. .Anterior marginal osteophyte formation and to a lesser extent posterior marginal osteophyte formation at C3-4, C4-5, C5-6 and C6-7 levels. Decreased intervertebral disc height C5-6 and C6-7. Reverse curvature apex at C5. No gross malalignment between the vertebral bodies or the facet joints. C1 is intact. C2 is intact. C3 is intact. C4 is intact. C5 is intact. C6 is intact. C7 is intact. Metallic beam hardening artifact secondary to metallic color at C4 level. No gross prevertebral compartment hematoma. Punctate calcification left parotid gland. Tympanic cavities and mastoid cells are aerated. Calcified plaques in the cavernous segments both ICAs. Extra-axial calcification in the periphery of the right posterior cranial fossa. . CT/CT cervical spine wo IV con IMPRESSION: Multilevel cervical spondylosis C3 C7 without acute fracture or trauma-related listhesis. Fleischner guidelines were followed. Electronically signed by: Frantz Saenz MD 12/18/2024 03:59 PM EDT
[2024-12-18 09:33] VITALS: BP 110/74; PULSE 79; O2SAT 97
[2024-12-18 09:37] VITALS: BP 109/61; PULSE 70; RESP 16; TEMP 36.6; O2SAT 95; BMI 41.0
--- NOTE | 2024-12-18 10:20 | ED.FALL ---
HPI - Fall General Chief Complaint: Fall Stated Complaint: unwitness fall, lt shoulder pain, back, rib pain Time Seen by Provider: 12/18/24 10:11 Source: patient Limitations: no limitations History of Present Illness HPI Narrative: This is a 59 years old female brought in after a fall down the stairs about 13 stairs she stated that she slipped and fell she is complaining of right chest wall pain headache she is here with a C-collar. PEER EDUCATOR is at bedside. Denies any chest pain shortness of breath fever vomiting MD complaint: fall Onset (ago): hour(s) (1) Fall from: other (down stairs) Place fall occurred: home Loss of consciousness: none Prolonged down time: no Context: tripped/slipped Related Data Home Medications ?Medication ?Instructions ?Recorded ?Confirmed amlodipine 10 mg tablet (Norvasc) 10 mg PO DAILY 01/23/20 07/10/24 citalopram 20 mg tablet (Celexa) 20 mg PO DAILY 01/23/20 07/10/24 clonazepam 0.5 mg tablet (Klonopin) 0.5 mg PO BEDTIME 01/23/20 07/10/24 duloxetine 60 mg capsule,delayed 60 mg PO DAILY 01/23/20 07/10/24 release (Cymbalta) aspirin 81 mg tablet,delayed 81 mg PO DAILY 01/26/22 07/10/24 release (Adult Low Dose Aspirin) cholecalciferol (vitamin D3) 50 50 mcg PO DAILY 01/26/22 07/10/24 mcg (2,000 unit) capsule (Vitamin D3) gabapentin 600 mg tablet 600 mg PO BID 01/26/22 07/10/24 (Neurontin) hydralazine 25 mg tablet 25 mg PO BID 01/26/22 07/10/24 hydrochlorothiazide 25 mg tablet 25 mg PO DAILY 01/26/22 07/10/24 losartan 100 mg tablet (Cozaar) 100 mg PO DAILY 01/26/22 07/10/24 meclizine 25 mg tablet (Dramamine 25 mg PO TID PRN Dizziness 01/26/22 07/10/24 (meclizine)) melatonin 3 mg tablet 3 - 6 mg PO BEDTIME PRN Insomnia 01/26/22 07/10/24 metformin 500 mg tablet 500 mg PO BID 01/26/22 07/10/24 lancets 33 gauge (TRUEplus Lancets) #100 ea 03/31/22 07/10/24 albuterol sulfate 90 mcg/actuation 0 mcg inhalation 09/06/22 07/10/24 aerosol inhaler (Ventolin HFA) fexofenadine 180 mg tablet 180 mg PO DAILY PRN allergies 09/06/22 07/10/24 (Allergy Relief (fexofenadine)) blood-glucose meter (FreeStyle #1 ea 11/10/22 07/10/24 [place] Lite kit) fluticasone 500 mcg-salmeterol 50 1 ea inhalation BID 12/01/22 07/10/24 mcg/dose blistr powdr for inhalation oxycodone 5 mg capsule 5 mg PO BID PRN Pain 08/18/23 07/10/24 amitriptyline 50 mg tablet 50 mg PO BEDTIME 07/17/24 calcium 500 mg (as tab PO DAILY 07/17/24 carbonate)-vitamin D3 5 mcg (200 unit) tablet (Oyster Shell Calcium-Vitamin D3) carvedilol 6.25 mg tablet 6.25 mg PO BID 07/17/24 tirzepatide (weight loss) 10 10 mg subcut QWEEK 07/17/24 mg/0.5 mL subcutaneous pen injector (Zepbound) Previous Rx's ?Medication ?Instructions ?Recorded oxybutynin chloride 10 mg 10 mg PO DAILY 30 days #30 tabs 07/03/23 tablet,extended release 24 hr incontinence pad, liner, disp #104 ea 07/14/23 mirabegron 50 mg tablet,extended 50 mg PO QAM #30 tabs 09/08/23 release 24 hr (Myrbetriq) polyethylene glycol 3350 17 238 g PO ONCE 1 day #238 grams 01/08/24 gram/dose oral powder (Miralax) diclofenac potassium 50 mg tablet 50 mg PO BID PRN pain #60 tabs 02/15/24 esomeprazole magnesium 40 mg 40 mg PO BEDTIME #30 caps 07/17/24 capsule,delayed release famotidine 40 mg tablet 40 mg PO BEDTIME #30 tabs 07/17/24 peg 3350-electrolytes 236 240 ml PO Q10M 1 day #4,000 mL 07/17/24 gram-22.74 gram-6.74 gram-5.86 gram solution (Golytely) simethicone 180 mg capsule (Gas 180 mg PO QID #120 ea 07/17/24 Relief (simethicone)) ubrogepant 100 mg tablet (Ubrelvy) 50 - 100 mg (0.5 - 1 x 100 mg) PO 08/23/24 ONCE PRN migraine headache 30 days #16 tabs ipratropium bromide 42 mcg (0.06 2 spray intranasal TID-QID PRN 09/23/24 %) nasal spray allergy symptoms 30 days #15 mL dicyclomine 20 mg tablet 20 mg PO TID #90 tabs 10/09/24 Allergies Allergy/AdvReac Type Severity Reaction Status Date / Time No Known Allergies (No Known Allergy Verified 12/18/24 09:39 Allergies*) Review of Systems Constitutional: Constitutional: Reports no additional constitutional complaints Cardiovascular: Cardiovascular: Reports no additional cardiovascular complaints Gastrointestinal: Gastrointestinal: Reports no additional gastrointestinal complaints Psychiatric: Psychiatric: Reports no additional psychiatric complaints PMFSH Past Medical History Attestation statement: The following information was validated with the patient. 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 Trichomonal infection Screen for STD (sexually transmitted disease) Well woman exam Post covid-19 condition, unspecified TOUSSAINT (dyspnea on exertion) Urge incontinence Overactive bladder Stress incontinence Distal radius fracture, left Fracture of left distal radius Colon cancer screening Abdominal cramping Well woman exam with routine gynecological exam Subcutaneous abscess Cellulitis Urgency incontinence Microscopic hematuria Hx of fracture of wrist Hx of sleep apnea Hx of vertigo COVID GERD (gastroesophageal reflux disease) Pre-diabetes Epigastric pain Abdominal cramping Primary osteoarthritis of knees, bilateral Morbid obesity Osteoarthritis Fibromyalgia Arthritis Hypertension Surgical History History of open reduction and internal fixation (ORIF) procedure Hx of tubal ligation Hx of colonoscopy History of cholecystectomy (~2018) Family History Family History Father Stomach cancer Brother Stomach problems Mother Diabetes Social History Social History Household Members: Family Housing: Apartment Do you presently have visiting nurse or other home services: No Alcohol intake: current Alcohol intake frequency: holidays/special occasions only Comment: SLEEPING Patient Tobacco Use Status: Former Tobacco user Tobacco use type: Cigarette Second Hand Smoke Exposure: No Advance Directives: Yes Advance Directives on File: Yes Advance Directives Date on File: 01/28/20 service: No Current occupational status: unemployed Sexual orientation: Straight/Heterosexual Gender identity: Female Physical Exam Exam: Exam: Patient is awake alert oriented x3 not acute distress no focal Vital Signs: Vital Signs: Last Vital Signs Temp 98.5 F 12/18/24 14:54 Pulse 75 12/18/24 14:54 Resp 18 12/18/24 14:54 BP 119/61 12/18/24 14:54 Pulse Ox 95 12/18/24 14:54 O2 Del Method Room Air 12/18/24 14:54 BMI result Body Mass Index 41.0 Const: General: cooperative Nutritional Appearance: average body habitus Orientation/consciousness: patient oriented x3 HEENT: Head: Yes normal to inspection General nose exam: Normal external nose present Face and sinus: Yes normal facial exam Neck: Neck: Yes normal visual inspection Chest: Chest palpation & inspection: normal inspection of the chest Resp: Effort & Inspection: normal respiratory effort Auscultation: clear to auscultation bilaterally Cardio: Jugular venous distension: no JVD Rate: regular rate Rhythm: regular rhythm GI: Inspection: Yes normal to inspection Palpation (GI): Soft to palpation, not firm and nontender Auscultation: normal bowel sounds Neuro: General: patient oriented x3 Cranial nerves: Yes CN's II-XII intact bilaterally Course Reevaluation(s) Reevaluation #1: Patient remained stable we are still waiting for the CAT scan at this time. The case will we will be signed out to Dr. Solorio Time: 16:02 Reevaluation #2: CAT scan resulted negative anticipate discharge Time: 16:32 Medical Decision Making Medical Decision Making [facility] Narrative: Patient is a fall down the stairs we will obtain imaging Differential Diagnosis Differential Diagnoses: The differential diagnosis associated with the presentation includes Rib fracture/subdural hematoma/cervical spine sponge Admission/Observation Consideration of admission/observation: Escalation of care including admission/observation considered Independent Interpretation I performed an independent interpretation of an: CT Scan Interpretation: Mireles scan negative Radiology Impression Discussion of test interpretation with radiology: I have reviewed the radiologist's reading. Radiologist Impression: all bowel loops are normal caliber. Scattered stool is seen in the colon. No free air or free fluid. Appendix is seen. Abdominal wall: Small lumbrical hernia containing fat. Pelvis: The uterus is anteverted. The bladder is mildly distended. No adnexal mass or free fluid seen. No abnormal pelvic lymph nodes. Osseous structures: There is exaggerated kyphosis of the thoracal lumbar junction/lower thoracic spine. Grade 1 anterolisthesis L5 over S1 is noted. Moderate bilateral L5-S1 and L4-5 facet joint arthropathy and hypertrophy is noted. CT/CT abdomen pelvis wo IV con IMPRESSION: No acute fracture visualized chest or abdomen. DJD. Exaggerated thoracolumbar spine kyphosis. There is no acute process seen in the chest, abdomen or pelvis. The gallbladder is out. He Electronically signed by: Marvin Duong MD 12/18/2024 04:11 PM EDT RP Dictated By: Marvin Duong MD Signed By: <Electronically signed Discharge Plan Discharge Clinical Impression: Fall Qualifiers: Encounter type: initial encounter Qualified Code(s): W19.XXXA - Unspecified fall, initial encounter Contusion of head Qualifiers: Encounter type: initial encounter Contusion of head detail: unspecified part of head Qualified Code(s): S00.93XA - Contusion of unspecified part of head, initial encounter Patient Disposition: Home, Self-Care Instructions: Fall Prevention for Older Adults (ED), Contusion in Adults (ED) Additional Instructions: Follow-up with your primary care physician you could take Tylenol as needed for pain Prescriptions: No Action oxybutynin chloride 10 mg tablet extended release 24hr 10 mg PO DAILY 30 Days Qty: 30 0RF (DME) incontinence pad, liner, disp Pad See Rx Instructions .Route Qty: 104 3RF Rx Instructions: As directed, change every 2-3 hours Myrbetriq 50 mg tablet extended release 24 hr 50 mg PO QAM Qty: 30 5RF polyethylene glycol 3350 [Miralax] 17 gram/dose powder 238 g PO ONCE 1 Days Qty: 238 0RF Rx Instructions: the day before your colonoscopy mix entire bottle with 64 ounces of a clear liquid, Drink half at 5pm and finish drinking prep at 10pm. Should take an hour to drink each half. Ubrelvy 100 mg tablet 50 - 100 mg PO ONCE PRN (Reason: migraine headache) 30 Days Qty: 16 6RF Rx Instructions: take at onset of migraine, may repeat in 2hrs (may take w/ Ibuprofen) ipratropium bromide 42 mcg (0.06 %) spray,non-aerosol 2 spray intranasal TID-QID PRN (Reason: allergy symptoms) 30 Days Qty: 15 3RF Rx Instructions: administer into each nostril dicyclomine 20 mg tablet 20 mg PO TID Qty: 90 1RF clonazepam [Klonopin] 0.5 mg Tablet 0.5 mg PO BEDTIME citalopram [Celexa] 20 mg Tablet 20 mg PO DAILY amlodipine [Norvasc] 10 mg Tablet 10 mg PO DAILY duloxetine [Cymbalta] 60 mg Capsule,Delayed Release(Dr/Ec) 60 mg PO DAILY (DME) lancets [TRUEplus Lancets] 33 gauge misc See Rx Instructions .ROUTE .MEDSUPPLY Qty: 100 Rx Instructions: As directed (DME) blood-glucose meter [FreeStyle [place] Lite] Kit See Rx Instructions .ROUTE .MEDSUPPLY Qty: 1 Rx Instructions: As directed losartan [Cozaar] 100 mg tablet 100 mg PO DAILY hydrochlorothiazide 25 mg tablet 25 mg PO DAILY aspirin [Adult Low Dose Aspirin] 81 mg tablet,delayed release (DR/EC) 81 mg PO DAILY melatonin 3 mg tablet 3 - 6 mg PO BEDTIME PRN (Reason: Insomnia) metformin 500 mg tablet 500 mg PO BID cholecalciferol (vitamin D3) [Vitamin D3] 50 mcg (2,000 unit) capsule 50 mcg PO DAILY meclizine [Dramamine (meclizine)] 25 mg tablet 25 mg PO TID PRN (Reason: Dizziness) hydralazine 25 mg tablet 25 mg PO BID gabapentin [Neurontin] 600 mg tablet 600 mg PO BID fluticasone propion-salmeterol 500-50 mcg/dose blister with device 1 ea inhalation BID oxycodone 5 mg capsule 5 mg PO BID PRN (Reason: Pain) diclofenac potassium 50 mg tablet 50 mg PO BID PRN (Reason: pain) Qty: 60 0RF Rx Instructions: Take with food, do not take with any other nonsteroidal anti-inflammatory medications Zepbound 10 mg/0.5 mL pen injector 10 mg subcut QWEEK amitriptyline 50 mg tablet 50 mg PO BEDTIME calcium carbonate-vitamin D3 [Oyster Shell Calcium-Vit D3] 500 mg-5 mcg (200 unit) tablet PO DAILY carvedilol 6.25 mg tablet 6.25 mg PO BID peg 3350-electrolytes [Golytely] 236-22.74-6.74 -5.86 gram recon soln 240 ml PO Q10M 1 Days Qty: 4000 0RF Rx Instructions: until fecal effluent is clear; do not exceed a total volume of 2,000 mL simethicone [Gas Relief (simethicone)] 180 mg capsule 180 mg PO QID Qty: 120 6RF famotidine 40 mg tablet 40 mg PO BEDTIME Qty: 30 6RF esomeprazole magnesium 40 mg capsule,delayed release(DR/EC) 40 mg PO BEDTIME Qty: 30 6RF albuterol sulfate [Ventolin HFA] 90 mcg/actuation HFA aerosol inhaler 0 mcg inhalation fexofenadine [Allergy Relief (fexofenadine)] 180 mg tablet 180 mg PO DAILY PRN (Reason: allergies) Print Language: Zambian
[2024-12-18 12:26] VITALS: BP 111/60; PULSE 68; RESP 18; O2SAT 95
--- OUTSIDE RECORDS SUMMARY | 2024-12-18 12:53 | XMS_ITS | Encounter Summary ---
Author Organization [employer] Address [address] [place] [id number] Care Team Providers Care Clinical Pharmacy Coordinator Name Role Phone Chelsi Kauffman MD Primary Care Provide r Reason for Visit * Reason Comments Med Refill Encounter Details Date Type Department Care Team (Late Contact Info) Description 08/29/2022 Refill [facility] [address] [place] [address] Chelsi Kauffman MD [address] [place] [address] Mild intermittent asthma without complication Social History [...] Department Care Team (Late Contact Info) Description 12/26/2024 11:30 AM EDT Office Visit [facility] [address] [place] [address] Kennedi Veras OD [address] [place] [address] 02/28/2025 8:00 AM EST Office Visit [facility] [address] [place] [address] Nicole Lay [address] [place] [address] 03/18/2025 9:45 AM EST Office Visit [facility] [address] [place] [address] documented as of this encounter Visit Diagnoses Diagnosis Mild intermittent asthma without complication documented in this encounter Additional Health Concerns Assessment Noted Time PHQ-9 Depression Total Score: 24 023 2:25 PM EDT documented as of this encounter Care Teams Clinical Pharmacy Coordinator Relationship Specialty Start Date End Date Chelsi Kauffman MD [address] [place] [id number] PCP - General Family Medicine 12/20/18 documented as of this encounter
--- OUTSIDE RECORDS SUMMARY | 2024-12-18 12:53 | XMS_ITS | Encounter Summary ---
Author Organization [employer] Address [address] [place] [address] [address] [place] [place] [address] Care Team Providers Care Slurry Tank Operator Name Role Phone Chelsi Kauffman MD Primary Care Provide r Reason for Visit * Reason Comments Med Refill Encounter Details Date Type Department Care Team ([facility] st Contact Info) Description 03/16/2023 Refill [facility] [address] [place] [address] Chelsi Kauffman MD [address] [place] [address] Dry eyes Social History Tobacco Use Types [...] Description 12/26/2024 11:30 AM EDT Office Visit [facility] [address] [place] [address] Rito, Kennedi, OD [address] [place] [address] 02/28/2025 8:00 AM EST Office Visit [facility] [address] [place] [address] Alireza, Nicole [address] [place] [address] 03/18/2025 9:45 AM EST Office Visit [facility] [address] [place] [address] documented as of this encounter Visit Diagnoses Diagnosis Dry eyes Unspecified tear film insufficiency documented in this encounter Additional Health Concerns Assessment Noted Time PHQ-9 Depression Total Score: 24 023 2:25 PM EDT documented as of this encounter Care Teams Slurry Tank Operator Relationship Specialty Start Date End Date Chelsi Kauffman MD [address] [place] [address] PCP - General Family Medicine 12/20/18 documented as of this encounter
--- OUTSIDE RECORDS SUMMARY | 2024-12-18 12:53 | XMS_ITS | Encounter Summary ---
Author Organization [facility] Address [address] 7[address] [place] [address] Care Team Providers Care Sas Programmer Analyst Name Role Phone Chelsi Kauffman MD Primary Care Provide r Encounter Details Date Type Department Care Team (Latest Contact Info) Description 12/17/2024 Travel Social History Tobacco Use Types Packs/Day Years [...] Description 12/26/2024 11:30 AM EDT Office Visit [facility] OPTOMETRY [address] [place] [address] Rito, Kennedi, OD 230 [place] [address] 02/28/2025 8:00 AM EST Office Visit [facility] ADULT DENTAL [address] [place] [address] Alireza, Nicole [address] [place] [address] 03/18/2025 9:45 AM EST Office Visit [facility] MEDICINE [address] [place] [address] documented as of this encounter Goals Goal [...] documented as of this encounter Care Teams Sas Programmer Analyst Relationship Specialty Start Date End Date Chelsi Kauffman MD 230 [place] [address] PCP - General Family Medicine 12/20/18 documented as of this encounter
--- OUTSIDE RECORDS SUMMARY | 2024-12-18 12:53 | XMS_ITS | Encounter Summary ---
Author Organization [employer] Address [address] [place] [address] [facility] [place] [address] Care Team Providers Care Touch Up Carver Name Role Phone Chelsi Kauffman MD Primary Care Provide r Reason for Visit * Reason Comments Med Refill Encounter Details Date Type Department Care Team ([facility] st Contact Info) Description 03/08/2023 Refill [facility] MEDICINE [address] [place] [address] Chelsi Kauffman MD 230 [place] [address] Migraine without aura, not refractory Social History [...] Description 12/26/2024 11:30 AM EDT Office Visit [facility] OPTOMETRY [address] [place] [address] Rito, Kennedi, OD 230 [place] [address] 02/28/2025 8:00 AM EST Office Visit [facility] ADULT DENTAL [address] [place] [address] Alireza, Nicole [address] [place] [address] 03/18/2025 9:45 AM EST Office Visit [facility] MEDICINE [address] [place] [address] documented as of this encounter Visit Diagnoses Diagnosis Migraine without aura, not refractory documented in this encounter Additional Health Concerns Assessment Noted Time PHQ-9 Depression Total Score: 24 023 2:25 PM EDT documented as of this encounter Care Teams Touch Up Carver Relationship Specialty Start Date End Date Chelsi Kauffman MD 230 [place] [address] PCP - General Family Medicine 12/20/18 documented as of this encounter
--- OUTSIDE RECORDS SUMMARY | 2024-12-18 12:53 | XMS_ITS | Encounter Summary ---
Author Organization [employer] Address [address] [place] [address] [facility] [place] [address] Care Team Providers Care Induction Coordination Engineer Name Role Phone Chelsi Kauffman MD Primary Care Provide r Reason for Visit * Reason Comments Med Refill Encounter Details Date Type Department Care Team ([facility] st Contact Info) Description 03/31/[address] [facility] MEDICINE 230 [place] [address] hCelsi Kauffman MD [address] [place] [address] Dermatitis, seborrheic; Polyarthralgia Social History Tobacco Use [...] Description 12/26/2024 11:30 AM EDT Office Visit [facility] OPTOMETRY [address] [place] [address] Rito, Kennedi, OD 230 [place] [address] 02/28/2025 8:00 AM EST Office Visit [facility] ADULT DENTAL [address] [place] [address] Alireza, Nicole [address] [place] [address] 03/18/2025 9:45 AM EST Office Visit [facility] MEDICINE [address] [place] [address] documented as of this encounter Visit Diagnoses Diagnosis Dermatitis, seborrheic Unspecified seborrheic dermatitis Polyarthralgia Pain in joint, multiple sites documented in this encounter Additional Health Concerns Assessment Noted Time PHQ-9 Depression Total Score: 24 023 2:25 PM EDT documented as of this encounter Care Teams Induction Coordination Engineer Relationship Specialty Start Date End Date Chelsi Kauffman MD [address] [place] [address] PCP - General Family Medicine 12/20/18 documented as of this encounter
--- OUTSIDE RECORDS SUMMARY | 2024-12-18 12:53 | XMS_ITS | Encounter Summary ---
Author Organization [employer] Address [address] [place] [address] 7 [place] [address] Care Team Providers Care Miner Name Role Phone Chelsi Kauffman MD Primary Care Provide r Reason for Visit * Reason Comments Med Refill Encounter Details Date Type Department Care Team ([facility] st Contact Info) Description 04/04/2023 Refill [facility] MEDICINE [address] [place] [address] Chelsi Kauffman MD [address] [place] [address] Asthma in adult, moderate persistent, uncomplicated Social [...] Description 12/26/2024 11:30 AM EDT Office Visit [facility] OPTOMETRY [address] [place] [address] Riot, Kennedi, OD 230 [place] [address] 02/28/2025 8:00 AM EST Office Visit [facility] ADULT DENTAL [address] [place] [address] Alireza, Nicole [address] [place] [address] 03/18/2025 9:45 AM EST Office Visit [facility] MEDICINE [address] [place] [address] documented as of this encounter Visit Diagnoses Diagnosis Asthma in adult, moderate persistent, uncomplicated documented in this encounter Additional Health Concerns Assessment Noted Time PHQ-9 Depression Total Score: 24 023 2:25 PM EDT documented as of this encounter Care Teams Miner Relationship Specialty Start Date End Date Chelsi Kauffman MD 230 [place] [address] PCP - General Family Medicine 12/20/18 documented as of this encounter
--- OUTSIDE RECORDS SUMMARY | 2024-12-18 12:53 | XMS_ITS | Encounter Summary ---
Author Organization [employer] Address [address] [facility] 7 [place] [address] Care Team Providers Care Compensation Vice President Name Role Phone Chelsi Kauffman MD Primary Care Provide r Encounter Details Date Type Department Care Team ([facility] st Contact Info) Description 03/25/2024 Telephone [facility] MEDICINE [address] [place] [address] Chelsi Kauffman MD [address] [place] [address] Social History Tobacco Use Types Packs/Day Years [...] Description 12/26/2024 11:30 AM EDT Office Visit [facility] OPTOMETRY [address] [place] [address] RitoKennedi blandon, OD 230 [place] [address] 02/28/2025 8:00 AM EST Office Visit [facility] ADULT DENTAL [address] [place] [address] Alireza, Nicole [address] [place] [address] 03/18/2025 9:45 AM EST Office Visit [facility] MEDICINE [address] [place] [address] documented as of this encounter Goals Goal [...] documented as of this encounter Care Teams Compensation Vice President Relationship Specialty Start Date End Date Chelsi Kauffman MD 230 [place] [address] PCP - General Family Medicine 12/20/18 documented as of this encounter
--- OUTSIDE RECORDS SUMMARY | 2024-12-18 12:53 | XMS_ITS | Encounter Summary ---
Author Organization [employer] Address [address] [place] [address] [place] [address] Care Team Providers Care Poultry Service Technician Name Role Phone Chelsi Kauffman MD Primary Care Provide r Reason for Visit * Reason Onset Date Comments Reschedule 06/13/2023 Encounter Details Date Type Department Care Team ([facility] st Contact Info) Description 06/13/2023 Telephone [facility] MEDICINE [address] [place] [address] Chelsi Kauffman MD 230 [place] [address] Reschedule Social History Tobacco Use Types Packs/Day [...] 04/07 Derm appointment. Please contact pt at [phone] documented in this encounter Plan of Treatment Upcoming Encounters Date Type Department Care Team (Late st Contact Info) Description 12/26/2024 11:30 AM EDT Office Visit [facility] OPTOMETRY [address] [place] [address] Rito, Kennedi, OD [address] [place] [address] 02/28/2025 8:00 AM EST Office Visit [facility] ADULT DENTAL [address] [place] [address] Alireza, Nicole [address] [place] [address] 03/18/2025 9:45 AM EST Office Visit [facility] MEDICINE [address] [place] [address] documented as of this encounter Visit Diagnoses Not on filedocumented in this encounter Additional Health Concerns Assessment Noted Time PHQ-9 Depression Total Score: 0 04/25/19 24 9:30 AM EST documented as of this encounter Care Teams Poultry Service Technician Relationship Specialty Start Date End Date Chelsi Kauffman MD 230 [place] [address] PCP - General Family Medicine 12/20/18 documented as of this encounter
--- OUTSIDE RECORDS SUMMARY | 2024-12-18 12:53 | XMS_ITS | Encounter Summary ---
Author Organization [employer] Address [address] [place] [address] Care Team Providers Care Manager State Name Role Phone Chelsi Kauffman MD Primary Care Provide r Encounter Details Date Type Department Care Team (Latest Contact Info) Description 09/04/2020 Abstract [facility] CONVERSIONS Dental, Provider, DDS Social [...] [facility] [address] [place] [address] Rito, Kennedi, OD 230 [place] [address] 02/28/2025 8:00 AM EST Office Visit [facility] ADULT DENTAL [address] [place] [address] Alireza, Nicole [address] [place] [address] 03/18/2025 9:45 AM EST Office Visit [facility] MEDICINE [address] [place] [address] documented as of this encounter Visit Diagnoses Not on filedocumented in this encounter Care Teams Manager State Relationship Specialty Start Date End Date Chelsi Kauffman MD [address] [place] [address] PCP - General Family Medicine 12/20/18 documented as of this encounter
--- OUTSIDE RECORDS SUMMARY | 2024-12-18 12:53 | XMS_ITS | Encounter Summary ---
Author Organization [employer] Address [address] [place] [address] Care Team Providers Care Manager Of Internal Audit Name Role Phone Chelsi Kauffman MD Primary Care Provide r Encounter Details Date Type Department Care Team (Latest Contact Info) Description 11/23/2021 Abstract [facility] CONVERSIONS Dental, Provider, DDS Social [...] 11:30 AM EDT Office Visit [facility] OPTOMETRY [address] [place] [address] Rito, Kennedi, OD 230 [place] [address] 02/28/2025 8:00 AM EST Office Visit [facility] ADULT DENTAL [address] [place] [address] Alireza, Nicole [address] [place] [address] 03/18/2025 9:45 AM EST Office Visit [facility] MEDICINE [address] [place] [address] documented as of this encounter Visit Diagnoses Not on filedocumented in this encounter Care Teams Manager Of Internal Audit Relationship Specialty Start Date End Date Chelsi Kauffman MD [address] [place] [address] PCP - General Family Medicine 12/20/18 documented as of this encounter
--- OUTSIDE RECORDS SUMMARY | 2024-12-18 12:53 | XMS_ITS | Encounter Summary ---
Author Organization [employer] Address [address] [facility] 7 [place] [address] Care Team Providers Care Automotive Brake Adjuster Name Role Phone Chelsi Kauffman MD Primary Care Provide r Reason for Visit * Reason Comments Med Refill Encounter Details Date Type Department Care Team ([facility] st Contact Info) Description 05/09/2023 Refill [facility] MEDICINE [address] [place] [address] Chelsi Kauffman MD 230 [place] [address] Migraine without aura, not refractory Social History [...] Description 12/26/2024 11:30 AM EDT Office Visit [facility] OPTOMETRY [address] [place] [address] Rito, Kennedi, OD 230 [place] [address] 02/28/2025 8:00 AM EST Office Visit [facility] ADULT DENTAL [address] [place] [address] Alireza, Nicole [address] [place] [address] 03/18/2025 9:45 AM EST Office Visit [facility] MEDICINE [address] [place] [address] documented as of this encounter Visit Diagnoses Diagnosis Migraine without aura, not refractory documented in this encounter Additional Health Concerns Assessment Noted Time PHQ-9 Depression Total Score: 0 04/25/19 24 9:30 AM EST documented as of this encounter Care Teams Automotive Brake Adjuster Relationship Specialty Start Date End Date Chelsi Kauffman MD 230 [place] [address] PCP - General Family Medicine 12/20/18 documented as of this encounter
--- OUTSIDE RECORDS SUMMARY | 2024-12-18 12:53 | XMS_ITS | Encounter Summary ---
Author Organization [employer] Address [address] [place] [address] [facility] [place] [address] Care Team Providers Care Toolroom Checker Name Role Phone Chelsi Kauffman MD Primary Care Provide r Reason for Visit * Reason Comments Med Refill Encounter Details Date Type Department Care Team ([facility] st Contact Info) Description 12/16/2024 Refill [facility] MEDICINE [address] [place] [address] Chelsi Kauffman MD [address] [place] [address] Preventative health care; Hypertension, unspecified type Social History Tobacco Use Types Packs/Day Years [...] Description 12/26/2024 11:30 AM EDT Office Visit [facility] OPTOMETRY [address] [place] [address] Rito, Kennedi, OD 230 [place] [address] 02/28/2025 8:00 AM EST Office Visit [facility] ADULT DENTAL [address] [place] [address] Alireza, Nicole [address] [place] [address] 03/18/2025 9:45 AM EST Office Visit [facility] MEDICINE [address] [place] [address] documented as of this encounter Goals Goal Patient Goal Type Associated Problems Recent Progress Patient-Stated? Author Record your blood pressure once per day Blood Pressure On track( 024 12:41 PM EDT) No Alena Cerda Blood Pressure < 140/90 Blood Pressure 139/89(2024 11:09 AM EDT) No Alena Cerda documented as of this encounter Visit Diagnoses Diagnosis Preventative health care Routine general medical examination at a health care facility Hypertension, unspecified type documented in this encounter Additional Health Concerns Assessment Noted Time PHQ-9 Depression Total Score: 0 01/17/20 24 11:19 AM EDT documented as of this encounter Care Teams Toolroom Checker Relationship Specialty Start Date End Date Chelsi Kauffman MD [address] [place] [address] PCP - General Family Medicine 12/20/18 documented as of this encounter
--- OUTSIDE RECORDS SUMMARY | 2024-12-18 12:53 | XMS_ITS | Encounter Summary ---
Author Organization [employer] Address [address] [place] [address] [place] [address] Care Team Providers Care Biazzi Nitrator Operator Name Role Phone Chelsi Kauffman MD Primary Care Provide r Reason for Visit * Reason Onset Date Comments triage 06/09/2022 Encounter Details Date Type Department Care Team ([facility] st Contact Info) Description 06/09/2022 Telephone [facility] MEDICINE 230 [place] [address] Chelsi Kauffman MD [address] [place] [address] triage Social History Tobacco Use Types Packs/Day [...] 06/09/2022 12:16 PM EST Triage call with [employer] Trimming Machine Operator ID [id number] Pt reports third time with Covid. Covid [...] accepted this outcome Please contact pt at [phone] Kyrgyz Speaker documented in this encounter Plan of Treatment Upcoming Encounters Date Type Department Care Team (Late st Contact Info) Description 12/26/2024 11:30 AM EDT Office Visit [facility] OPTOMETRY [address] [place] [address] Kennedi Veras, OD 230 [place] [address] 02/28/2025 8:00 AM EST Office Visit [facility] ADULT DENTAL 230 [place] [address] Alireza Nicole [address] [place] [address] 03/18/2025 9:45 AM EST Office Visit [facility] MEDICINE 230 [place] [address] documented as of this encounter Visit Diagnoses Not on filedocumented in this encounter Care Teams Biazzi Nitrator Operator Relationship Specialty Start Date End Date Chelsi Kauffman MD [address] [place] [address] PCP - General Family Medicine 12/20/18 documented as of this encounter
--- OUTSIDE RECORDS SUMMARY | 2024-12-18 12:53 | XMS_ITS | Encounter Summary ---
Author Organization [employer] Address [address] [facility] 7 [place] [address] Care Team Providers Care Cleaner Wall Name Role Phone Chelsi Kauffman MD Primary Care Provide r Reason for Visit * Reason Comments Med Refill Encounter Details Date Type Department Care Team ([facility] st Contact Info) Description 03/31/2023 Refill [facility] MED & PEDS [address] [place] [address] Kiana Santos, DO 230 [place] [address] Vitamin D deficiency, unspecified Social History Tobacco [...] Description 12/26/2024 11:30 AM EDT Office Visit [facility] OPTOMETRY [address] [place] [address] Rito, Kennedi, OD 230 [place] [address] 02/28/2025 8:00 AM EST Office Visit [facility] ADULT DENTAL 230 [place] [address] Alireza, Nicole [address] [place] [address] 03/18/2025 9:45 AM EST Office Visit [facility] MEDICINE [address] [place] [address] documented as of this encounter Visit Diagnoses Diagnosis Vitamin D deficiency, unspecified documented in this encounter Additional Health Concerns Assessment Noted Time PHQ-9 Depression Total Score: 24 023 2:25 PM EDT documented as of this encounter Care Teams Cleaner Wall Relationship Specialty Start Date End Date Chelsi Kauffman MD [address] [place] [address] PCP - General Family Medicine 12/20/18 documented as of this encounter
--- OUTSIDE RECORDS SUMMARY | 2024-12-18 12:53 | XMS_ITS | Encounter Summary ---
Author Organization [employer] Address [address] [place] [address] Care Team Providers Care Drill Runner Name Role Phone Chelsi Kauffman MD Primary Care Provide r Reason for Visit * Reason Comments Med Refill Encounter Details Date Type Department Care Team (Late Contact Info) Description 09/18/2022 Refill [facility] MEDICINE [address] [place] [address] Chelsi Kauffman MD [address] [place] [address] Asthma in adult, moderate persistent, uncomplicated Social [...] Description 12/26/2024 11:30 AM EDT Office Visit [facility] OPTOMETRY [address] [place] [address] Kennedi Veras OD 230 [place] [address] 02/28/2025 8:00 AM EST Office Visit [facility] ADULT DENTAL [address] [place] [address] Nicole Lay [address] [place] [address] 03/18/2025 9:45 AM EST Office Visit [facility] MEDICINE [address] [place] [address] documented as of this encounter Visit Diagnoses Diagnosis Asthma in adult, moderate persistent, uncomplicated documented in this encounter Additional Health Concerns Assessment Noted Time PHQ-9 Depression Total Score: 24 023 2:25 PM EDT documented as of this encounter Care Teams Drill Runner Relationship Specialty Start Date End Date Chelsi Kauffman MD [address] [place] [address] PCP - General Family Medicine 12/20/18 documented as of this encounter
--- OUTSIDE RECORDS SUMMARY | 2024-12-18 12:53 | XMS_ITS | Encounter Summary ---
Author Organization [employer] Address [address] [facility] 7 [place] [address] Care Team Providers Care Guest Experience Specialist Name Role Phone Chesli Kauffman MD Primary Care Provide r Reason for Visit * Reason Comments Med Refill Encounter Details Date Type Department Care Team ([facility] st Contact Info) Description 09/14/2023 Refill [facility] MEDICINE [address] [place] [address] Chelsi Kauffman MD [address] [place] [address] Polyarthralgia Social History Tobacco Use Types Packs/Day [...] Description 12/26/2024 11:30 AM EDT Office Visit [facility] OPTOMETRY [address] [place] [address] Rito, Kennedi, OD 230 [place] [address] 02/28/2025 8:00 AM EST Office Visit [facility] ADULT DENTAL [address] [place] [address] Alireza, Nicole 230 [place] [address] 03/18/2025 9:45 AM EST Office Visit [facility] MEDICINE [address] [place] [address] documented as of this encounter Goals Goal [...] documented as of this encounter Care Teams Guest Experience Specialist Relationship Specialty Start Date End Date Chelsi Kauffman MD [address] [place] [address] PCP - General Family Medicine 12/20/18 documented as of this encounter
--- OUTSIDE RECORDS SUMMARY | 2024-12-18 12:53 | XMS_ITS | Encounter Summary ---
Author Organization [employer] Address [address] [facility] 7t [place] [address] Care Team Providers Care Director Data Architecture Name Role Phone Chelsi Kauffman MD Primary Care Provide r Encounter Details Date Type Department Care Team (Late st Contact Info) Description 01/17/2023 Abstract [facility] MEDICINE [address] [place] [address] Griselda Segal Social History Tobacco Use Types [...] 12/26/2024 11:30 AM EDT Office Visit [facility] OPTOMETRY [address] [place] [address] Rito, Kennedi, OD [address] [place] [address] 02/28/2025 8:00 AM EST Office Visit [facility] ADULT DENTAL [address] [place] [address] Alireza, Nicole [address] [place] [address] 03/18/2025 9:45 AM EST Office Visit [facility] MEDICINE [address] [place] [address] documented as of this encounter Procedures Procedure [...] as of this encounter Care Teams Director Data Architecture Relationship Specialty Start Date End Date Chelsi Kauffman MD [address] [place] [address] PCP - General Family Medicine 12/20/18 documented as of this encounter
--- OUTSIDE RECORDS SUMMARY | 2024-12-18 12:53 | XMS_ITS | Encounter Summary ---
Author Organization [employer] Address [address] [place] [address] 7 [place] [address] Care Team Providers Care Cake Icer Name Role Phone Chelsi Kauffman MD Primary Care Provide r Reason for Visit * Reason Comments Med Refill Encounter Details Date Type Department Care Team (Late st Contact Info) Description 08/24/2022 Refill [facility] MED & PEDS [address] [place] [address] Mariana Meyer MD [address] [place] [address] Social History Tobacco Use Types Packs/Day Years [...] Upcoming Encounters Date Type Department Care Team ([facility] Contact Info) Description 12/26/2024 11:30 AM EDT [facility] Visit [facility] OPT[facility] [address] [place] [address] Kennedi Veras, OD 230 [place] [address] 02/28/2025 8:00 AM EST Office Visit [facility] ADULT DENTAL [address] [place] [address] Alireza, Nicole [address] [place] [address] 03/18/2025 9:45 AM EST Office Visit [facility] MEDICINE [address] [place] [address] documented as of this encounter Visit Diagnoses Not on filedocumented in this encounter Additional Health Concerns Assessment Noted Time PHQ-9 Depression Total Score: 24 023 2:25 PM EDT documented as of this encounter Care Teams Cake Icer Relationship Specialty Start Date End Date Chelsi Kauffman MD [address] [place] [address] PCP - General Family Medicine 12/20/18 documented as of this encounter
--- OUTSIDE RECORDS SUMMARY | 2024-12-18 12:54 | XMS_ITS | Encounter Summary ---
Author Organization [facility] [employer] Address [address] [place] [address] [place] [address] Care Team Providers Care Pharmacist Manager Name Role Phone Chelsi Kauffman MD Primary Care Provide r Reason for Visit * Reason Onset Date Comments Referral 08/12/2024 Encounter Details Date Type Department Care Team ([facility] st Contact Info) Description 08/12/2024 Telephone [facility] MEDICINE [address] [place] [address] Cehlsi Kauffman MD [address] [place] [address] Referral Social History Tobacco Use Types Packs/Day [...] referral : DATE: 08/12/2024 TIME: 10:00am Address: [address] [place] [id number] Visits: 1 Facility Name: [facility] Physical Therapy Type of Specialist: physical therapy DX:[id number] Provider : not provided Provider NPI : Facility NPI: [id number] Phone # : [phone] Fax #: [phone] documented in this encounter Plan of Treatment Upcoming Encounters Date Type Department Care Team ([facility] [address] Contact Info) Description 12/26/2024 11:30 AM EDT Office Visit [facility] OPTOMETRY [address] [place] [address] Kennedi Veras, OD [address] [place] [address] 02/28/2025 8:00 AM EST Office Visit [facility] ADULT DENTAL [address] [place] [address] Nicole Lay [address] [place] [address] 03/18/2025 9:45 AM EST Office Visit [facility] MEDICINE [address] [place] [address] documented as of this encounter Goals Goal [...] documented as of this encounter Care Teams Pharmacist Manager Relationship Specialty Start Date End Date Chelsi Kauffman MD [address] [place] [address] PCP - General Family Medicine 12/20/18 documented as of this encounter
--- OUTSIDE RECORDS SUMMARY | 2024-12-18 12:54 | XMS_ITS | Encounter Summary ---
Author Organization [email or web address] Address [address] [place] [address] [place] [address] Care Team Providers Care Fiberglass Fabricator Name Role Phone Chelsi Kauffman MD Primary Care Provide r Reason for Visit * Reason Onset Date Comments Med Refill 05/30/2024 Encounter Details Date Type Department Care Team (Late st Contact Info) Description 05/30/2024 Refill [facility] MEDICINE [address] [place] [address] Chelsi Kauffman MD [address] [place] [address] Social History Tobacco Use Types Packs/Day Years [...] MG/0.5ML solution auto-injector To be sent to: [facility] - [place], [place] - [address] [place] [address] documented in this encounter Plan of Treatment Upcoming Encounters Date Type Department Care Team (Late st Contact Info) Description 12/26/2024 11:30 AM EDT Office Visit [facility] OPTOMETRY [address] [place] [address] Rito, Kennedi, OD [address] [place] [address] 02/28/2025 8:00 AM EST Office Visit [facility] ADULT DENTAL [address] [place] [address] Nicole Lay [address] [place] [address] 03/18/2025 9:45 AM EST Office Visit [facility] MEDICINE [address] [place] [address] documented as of this encounter Goals Goal [...] documented as of this encounter Care Teams Fiberglass Fabricator Relationship Specialty Start Date End Date Chelsi Kauffman MD [address] [place] [address] PCP - General Family Medicine 12/20/18 documented as of this encounter
--- OUTSIDE RECORDS SUMMARY | 2024-12-18 12:54 | XMS_ITS | Encounter Summary ---
Author Organization [employer] Address [address] [facility] [address] [place] [address] Care Team Providers Care Commissioner Of Conciliation Name Role Phone Chelsi Kauffman MD Primary Care Provide r Encounter Details Date Type Department Care Team (Late st Contact Info) Description 05/06/2024 Orders Only [facility] MEDICINE [address] [place] [address] Mariana Meyer MD [address] [place] [address] Social History Tobacco Use Types Packs/Day Years [...] Description 12/26/2024 11:30 AM EDT Office Visit [facility] OPTOMETRY [address] [place] [address] Rito, Kennedi, OD [address] [place] [address] 02/28/2025 8:00 AM EST Office Visit [facility] ADULT DENTAL [address] [place] [address] Alireza, Nicole [address] [place] [address] 03/18/2025 9:45 AM EST Office Visit [facility] MEDICINE [address] [place] [address] documented as of this encounter Goals Goal [...] documented as of this encounter Care Teams Commissioner Of Conciliation Relationship Specialty Start Date End Date Chelsi Kauffman MD [address] [place] [address] PCP - General Family Medicine 12/20/18 documented as of this encounter
--- OUTSIDE RECORDS SUMMARY | 2024-12-18 12:54 | XMS_ITS | Clinical Summary ---
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 acetaminophen (Tylenol) 500 MG tablet Take 1 [...] Take 40 mg by mouth at bedtime. Active melatonin 3 MG tablet TAKE 1 TO 2 TABLETS BY MOUTH DAILY AT BEDTIME NEEDED Active Simethicone Ultra Strength 180 MG capsule Take 180 mg by mouth 4 times daily. Active ipratropium (Atrovent) 0.06 % nasal spray Active Myrbetriq 50 MG 24 hr tablet Take 50 mg by mouth Once per day. Active ketoconazole (NIZOral) 2 % shampoo APPLY TO SCALP AND LEAVE ON FOR 5 MINUTES THEN RINSE OFF TWICE A WEEK Active diclofenac (Cataflam) 50 MG tablet Take 50 mg by mouth 2 times daily. Active albuterol (2.5 MG/3ML) 0.083% nebulizer solutionIndicati ons:Mild persistent asthma without complication INHALE 1 AMPULE USING A NEBULIZER THREE TIMES DAILY 90 mL 1 Active Blood Glucose Monitoring Suppl ([employer] Lite) w/Device kitIndications:P rediabetes Use to test [...] BP as directed. 1 kit 024 Active clotrimazole-bet amethasone (Lotrisone) creamIndications :Intertrigo APPLY 1/2 GRAM TOPICALLY TO AFFECTED AREA(S) TWICE DAILY FOR 28 DAILY 30 g 1 025 Active butalbital-aceta minophen-caffein e 50-325-40 MG tabletIndication s:Migraine without aura, not refractory TAKE 1 TO 2 TABLETS BY MOUTH EVERY 4 HOURS NEEDED 9 tablet 1 025 Active hydrALAZINE (Apresoline) 25 MG tabletIndication s:HTN (hypertension), benign TAKE 1 TABLET BY MOUTH TWICE DAILY IN THE MORNING AND AT BEDTIME 60 tablet 11 025 Active carvedilol (Coreg) 6.25 MG tabletIndication s:Essential hypertension TAKE 1 TABLET BY MOUTH WITH BREAKFAST AND EVENING MEAL 60 tablet 11 025 Active albuterol (Ventolin HFA) 108 (90 [...] A WEEK DIRECTED 2 mL 025 Active Alcohol Swabs (Alcohol Prep) 70 % padsIndications: Prediabetes USE DIRECTED TO TEST BLOOD SUGAR BEFORE MEALS AND AT BEDTIME AND BEFORE SNACKS 100 each 5 025 Active Ubrelvy 100 MG tablet TAKE 1/2 TO 1 TABLET BY MOUTH AT ONSET OF MIGRAINE. MAY REPEAT IN 2 HOURS NEEDED. MAY TAKE WITH IBUPROFEN 025 Active glucose blood (FREESTYLE LITE) test strip USE DIRECTED TO TEST BLOOD SUGAR TWICE DAILY 50 strip 025 Active TRUEplus Lancets 33G miscIndications: IFG (impaired fasting glucose) USE DIRECTED TO TEST BLOOD SUGAR TWICE DAILY 100 each 025 Active Calcium Carb-Cholecalcif terri (Oyster Shell Calcium w/D) 500-5 MG-MCG tabletIndication s:Polyarthralgia TAKE 1 TABLET BY MOUTH EVERY MORNING 90 tablet 1 025 Active lidocaine-priloc sheryl (Emla) 2.5-2.5 % creamIndications :Long-term current use of opiate analgesic Apply thin layer by topical route 3-4 times daily as needed for pain 30 g 2 025 Active Tirzepatide-Weig ht Management (Zepbound) 15 MG/0.5ML solution auto-injectorInd ications:Class 3 severe obesity due to excess calories with serious comorbidity and body mass index (BMI) of 40.0 to 44.9 in adult Inject 0.5 mL (15 mg) under the skin 1 (one) time per week. 2 mL 3 025 Active naloxone (Narcan) 4 mg/0.1 mL nasal sprayIndications :Chronic midline low back pain with right-sided sciatica FOR SUSPECTED OPIOID OVERDOSE. SPRAY 0.1mL IN ONE NOSTRIL. REPEAT IN ALTERNATE NOSTRIL 2-3 MINUTES IF NEEDED. SEEK MEDICAL ATTENTION IMMEDIATELY EVEN IF PATIENT RESPONDS. 2 each 3 025 Active fexofenadine (Mylene) 180 MG tabletIndication s:Asthma in adult, moderate persistent, uncomplicated TAKE 1 TABLET BY MOUTH EVERY MORNING NEEDED FOR ALLERGIES 90 tablet 1 025 Active Aspirin Low Dose 81 MG EC tabletIndication s:Preventative health care TAKE 1 TABLET BY MOUTH EVERY MORNING 90 tablet 1 025 Active amLODIPine (Norvasc) 10 MG tabletIndication s:Hypertension, unspecified type TAKE 1 TABLET BY MOUTH EVERY MORNING 90 tablet 1 025 Active amitriptyline (Elavil) 50 MG tabletIndication s:Migraine without aura, not refractory TAKE 1 TABLET BY MOUTH AT BEDTIME 30 tablet 3 025 Active citalopram (CeleXA) 20 MG tabletIndication s:Moderate episode of recurrent major depressive disorder (CMS/HCC) TAKE 1 TABLET BY MOUTH EVERY MORNING 30 tablet 3 025 Active DULoxetine (Cymbalta) [address] capsuleIndicatio ns:Moderate episode of recurrent major depressive disorder (CMS/HCC) TAKE 1 CAPSULE BY MOUTH EVERY MORNING 30 capsule 3 025 Active gabapentin (Neurontin) 600 MG tabletIndication s:Chronic toe pain, left foot TAKE 1 TABLET BY MOUTH TWICE DAILY IN THE MORNING AND IN THE EVENING 60 tablet 1 025 Active meclizine (Antivert) 25 MG tabletIndication s:Vertigo TAKE 1 TABLET BY MOUTH THREE TIMES DAILY 90 tablet 2 025 Active oxyCODONE (Roxicodone) 5 MG immediate release tabletIndication s:Chronic midline low back pain with right-sided sciatica,Polyart hralgia TAKE 1 TABLET BY MOUTH EVERY TWELVE HOURS NEEDED FOR SEVERE PAIN 56 tablet 025 2024 Active metFORMIN (Glucophage) 500 MG tabletIndication s:Prediabetes TAKE 1 TABLET BY MOUTH TWICE DAILY IN THE MORNING AND AT BEDTIME WITH FOOD 180 tablet 1 025 Active fluticasone (Flonase) 50 MCG/ACT nasal sprayIndications :Allergic conjunctivitis, unspecified laterality INSTILL 2 SPRAYS IN EACH NOSTRIL ONCE DAILY IN THE MORNING 48 g 1 025 Active fluticasone (Flonase) 50 MCG/ACT nasal sprayIndications :Allergic conjunctivitis, unspecified laterality INSTILL 2 SPRAYS IN EACH NOSTRIL ONCE DAILY IN THE MORNING 48 g 1 024 2024 Discontinued(R eorder (will not trigger notification to Pharmacy)) metFORMIN (Glucophage) 500 MG tabletIndication s:Prediabetes TAKE 1 TABLET BY MOUTH TWICE DAILY IN THE MORNING AND AT BEDTIME WITH FOOD 180 tablet 1 025 2024 Discontinued oxyCODONE (Roxicodone) 5 MG immediate release tabletIndication s:Chronic midline low back pain with right-sided sciatica,Polyart hralgia TAKE 1 TABLET BY MOUTH EVERY TWELVE HOURS NEEDED FOR SEVERE PAIN 56 tablet 025 2024 Discontinued Active Problems Problem Noted Date Diagnosed Date Deformity of left ankle joint 09/23/2024 Acquired foot deformity, left 09/23/2024 Closed fracture of tooth 09/10/2024 Chronic bilateral low back pain without sciatica [...] lumbar anterolisthesis Rx: oxycodone 5mg BID Last [facility] agreement: 04/23/24 Tier: III (Q4-6 months), Dr. Go 04/24/24 Assessment & Plan (12/17/2024 12:58 PM EDT): Timeline: - 04/23/24: Group- pill count/utox as expected - 06/18/24: Group visit - pill count/utox as expected - 07/16/24: Group visit - pill count/utox as expected - 09/17/24: Group visit - utox/pill count as expected - 12/17/24: Group visit - utox/pill count as expected Assessment & Plan (09/19/2024 2:10 PM EDT): Timeline: - 06/08/23: pill count/utox as expected - 08/07/23: pill count/utox as expected - 01/18/24: pill count/utox as expected - 02/22/24: Group - pill count/utox as expected - 04/23/24: Group- pill count/utox as expected - 06/18/24: Group visit - pill count/utox as expected - 07/16/24: Group visit - pill count/utox as expected - 09/17/24: Group visit - utox/pill count as expected Assessment & Plan (07/16/2024 2:02 PM EDT): [...] 44.9 in adult 01/17/2024 Assessment & Plan (09/23/2024 12:56 PM EDT): Counseling done Patient denies side effects form her medication, she will c/w zepbound 15mg weekly Assessment & Plan (06/21/2024 3:13 PM EDT): [...] 11/27/2023 YOLA (stress urinary incontinence, female) 2023 Post covid-19 condition, unspecified 11/27/2023 Tipped teeth [...] evidence of acute fracture Assessment & Plan (12/17/2024 12:58 PM EDT): -Good engagement and participation with Group Medical Visit model -Encouraged multifactorial approach to pain control including pharm and non- pharm modalities -UTOX and Pill count as expected Assessment & Plan (09/19/2024 2:11 PM EDT): -Good engagement and participation with Group Medical Visit model -Encouraged multifactorial approach to pain control including pharm and non- pharm modalities -UTOX and Pill count as expected Assessment & Plan (07/16/2024 2:02 PM EDT): [...] 03/18/2022 Essential hypertension 03/18/2022 Assessment & Plan (09/23/2024 12:55 PM EDT): I advised: - Aerobic exercise to reduce BP. Initial [...] consulting health care provider Assessment & Plan (06/21/2024 3:13 PM EDT): [...] if is persistently high to contact me hose tubing backer pain 03/18/2022 Pain in finger [...] despite taking the medication. - Recommended watching [employer] videos fro stretching and exercises that can help. - Referred to PT 03/26/24 Resolved Problems Problem Noted Date Diagnosed Date Resolved Date Cellulitis 11/27/2023 02/20/2024 GABRIELA (obstructive sleep apnea) 11/27/2023 09/19/2024 Rash 07/26/2022 02/20/2024 Nausea and vomiting 07/26/2022 [...] cardiovascular exercise Nasal congestion 03/18/2022 02/20/2024 Encounters * This document contains information received from the source organization and may not represent a complete record from that organization. Date Type Department Care Team Description 12/17/2024 9:45 AM EDT Office Visit [facility] MEDIC[facility] [address] [place] [address] Mackenzie Whatley, MYRIAM Anterolisthesis of lumbar spine (Primary Dx); Long-term current use of opiate analgesic 12/17/2024 Travel 12/16/2024 Refill [facility] [address] [place] [address] Chelsi Kauffman MD Preventative health care; Hypertension, unspecified type 12/06/2024 Refill [facility] P[facility] [address] [place], [place] [phone] Chelsi Kauffman MD Allergic conjunctivitis, unspecified laterality 12/05/2024 Refill [facility] [address], [place] [phone] Chelsi Kauffman MD Prediabetes 12/04/2024 9:30 AM EDT Office Visit [facility] ADULT DENTAL [address] [place] [address] Granados-Cowan, Aurora, DDS Teeth missing (Primary Dx) 11/18/2024 Refill [facility] [address] [place] [address] Chelsi Kauffman MD Chronic midline low back pain with right-sided sciatica; Polyarthralgia 11/14/2024 Telephone [facility] ADULT DENTAL [address] [place] [address] Granados-Cowan, Aurora, DDS 11/10/2024 Refill [facility] [address] [place] [address] Chelsi Kauffman MD Migraine without aura, not refractory; Moderate episode of recurrent major depressive disorder (CMS/HCC); Chronic toe pain, left foot; Vertigo 11/05/2024 Telephone [facility] ADULT DENTAL [address] [place] [address] Granados-Cowan, Aurora, DDS 10/22/2024 Refill [facility] [address] [place] [address] Chelsi Kauffman MD Chronic midline low back pain with right-sided sciatica; Polyarthralgia 10/18/2024 Refill [facility] [address] [place] [address] Chelsi Kauffman MD Preventative health care; Hypertension, unspecified type 10/06/2024 Refill [facility] [address] [place] [address] Chelsi Kauffman MD Asthma in adult, moderate persistent, uncomplicated 10/03/2024 8:00 AM EDT Office Visit [facility] ADULT DENTAL [address] [place] [address] Granados-Cowan, Aurora, DDS Dental caries (Primary Dx); Teeth missing 09/25/2024 Refill [facility] [address] [place] [address] Chelsi Kauffman MD Chronic midline low back pain with right-sided sciatica 09/24/2024 Telephone [facility] [address], [place] [phone] Chelsi Kauffman MD Med Refill; Clonazepam NOT prescribed from [facility] 09/23/2024 11:15 AM EDT Office Visit [facility] [address] [place] [address] Chelsi Kauffman MD Acquired foot deformity, left (Primary Dx); Class 3 severe obesity due to excess calories with serious comorbidity and body mass index (BMI) of 40.0 to 44.9 in adult; Essential hypertension; Dietary counseling; Exercise counseling; Prediabetes 09/23/2024 Refill [facility] [address] [place] [address] Chelsi Kauffman MD Chronic midline low back pain with right-sided sciatica; Polyarthralgia 09/23/2024 Travel 09/17/2024 9:45 AM EDT Office Visit [facility] [address] [place] [address] Mackenzie Whatley, MYRIAM Anterolisthesis of lumbar spine (Primary Dx); Long-term current use of opiate analgesic 09/17/2024 Travel from Last 3 Months Immunizations Immunization Administration [...] Sign Reading Time Taken Comments Blood Pressure 139/89 09/23/2024 11:09 AM EDT Pulse 83 09/23/2024 11:09 AM EDT Temperature 37.7 C (99.9 F) 09/23/2024 11:09 AM EDT Respiratory Rate 18 09/23/2024 11:09 AM EDT Oxygen Saturation 99% 09/23/2024 11:09 AM EDT Inhaled Oxygen Concentration - - Weight 114 kg (251 lb) 09/23/2024 11:09 AM EDT Height 167.6 cm (5' 6 ) 09/23/2024 11:09 AM EDT Body Mass Index 40.51 09/23/2024 11:09 AM EDT Plan of Treatment Upcoming Encounters Date Type Department Care Team (Late st Contact Info) Description 12/26/2024 11:30 AM EDT Office Visit [facility] OPTOMETRY [address] [place] [address] Rito, Kennedi, OD [address] [place] [address] 02/28/2025 8:00 AM EST Office Visit [facility] ADULT DENTAL [address] [place] [address] Alireza, Nicole [address] [place] [address] 03/18/2025 9:45 AM EST Office Visit [facility] MEDICINE [address] [place] [address] Health Maintenance Due Date Last Done Comments CT Colonography 1965 FIT DNA/Cologuard 1965 FIT 1965 FOBT 1965 Sigmoidoscopy 1965 Colonoscopy 08/26/2023 08/25/2022, 10/07/2020 Colorectal Cancer Screening 08/26/2023 RSV Patients and Patients Aged 60 years or older (1 - Risk 60-74 years 1-dose series) 2024 Influenza Vaccine (#1) 2024 , 02/06/2023, 01/18/2022 Depression Screening 01/16/2025 01/17/2024, 01/17/20 24 Dental Oral Exam 02/09/2025 08/08/2024, , 02/24/2023, Additional history exists Dental Prophylaxis 02/09/2025 08/08/2024, 0 10/31/2023, 02/24/2023, Additional history exists Alcohol/Substance Use Screening 02/19/2025 02/20/2024 Mammogram 03/01/2025 03/01/2024, 09/08, 09/23/2021, Additional history exists SDOH Screening 06/13/2025 06/13/2024 Diabetes: Hemoglobin A1C 07/10/2025 025, 01/17/2024, 08/19/2022, Additional history exists Dental X-Ray: Bitewings 08/09/2025 08/09/19 25, 02/24/2023, 11/23/2021, Additional history exists Disability Screening 09/23/2025 09/23/2024 Tobacco Screening 12/04/2025 12/04/2024 Dental X-Ray: Full Mouth 02/25/2026 02/24/2023, 1209/2018 Cervical Cancer Screening 07/03/2028 HPV/Cotest 07/03/2028 07/04/2023 Pap Smear 07/03/2028 07/04/2023, 07/04/2023 Lipid Panel 07/10/2029 07/10/2024, 08/08, 07/28/2021, Additional history exists DTaP/Tdap/Td Vaccines (2 - Td or Tdap) 06/13/2033 06/14/2023 Pneumococcal Vaccine: 50+ Years Completed 01/18/2022 HIV Screening Completed 12/21/2022, 12/01/2022 Hepatitis C Screening Completed 12/21/2022, 023 Zoster Vaccines Completed 06/14/2023, 01/18/2022 Hepatitis B Vaccines Completed 09/26/2023, 08/15/19 24 COVID-19 Vaccine Completed 02/16/2024, 01/2022, 11/17/2021, Additional [...] Dowd Blood Pressure < 140/90 Blood Pressure 139/89(2024 11:09 AM EDT) No Alena Cerda Procedures Procedure Name Priority Date/Time Associated Diagnosis Comments POCT ANIKA-14 URINE DRUG SCREEN Routine 12/17/2024 10:29 AM EDT Long-term current use of opiate analgesic CASE PRESENTATION, DETAILED AND EXTENSIVE TREATMENT PLANNING Routine 12/04/2024 9:30 AM EDT Teeth missing 20 ADD TOOTH TO EXISTING PARTIAL DENTURE Routine 12/04/2024 9:30 AM EDT Teeth missing CASE PRESENTATION, DETAILED AND EXTENSIVE TREATMENT PLANNING Routine 10/03/2024 8:00 AM EDT Dental caries Teeth missing 6 DL RESIN-BASED COMPOSITE - 2 SURF, ANTERIOR Routine 10/03/2024 8:00 AM EDT Dental caries Teeth missing POCT ANIKA-14 URINE DRUG SCREEN Routine 09/17/2024 10:28 AM EDT Long-term current use of opiate analgesic PROPHYLAXIS - ADULT Routine 08/08/2024 1 1:00 AM EDT Xerostomia Teeth missing Dental plaque BITEWINGS - 2 RADIOGRAPHIC IMAGES Routine 08/08/2024 11:00 AM EDT Xerostomia Teeth missing Dental plaque PERIODIC ORAL EVALUATION - ESTABLISHED PATIENT Routine 08/08/2024 11:00 AM EDT HEMOGLOBIN A1C Routine 07/10/2024 12:13 PM EDT Class 3 severe obesity due to excess calories with serious comorbidity and body mass index (BMI) of 40.0 to 44.9 in adult Essential hypertension LIPID PANEL, STANDARD Routine 07/10/2024 12:13 PM EDT Class 3 severe obesity due to excess calories with serious comorbidity and body mass index (BMI) of 40.0 to 44.9 in adult Essential hypertension BI MAMMOGRAM SCREENING TOMOSYNTHESIS BILATERAL Routine 03/01/2024 [...] Recently Relevant to Health Maintenance Results * POCT ANIKA-14 Urine Drug Screen (12/17/2024 10:29 AM EDT) Only the most recent of2 resultswithin the time period is included. THC Negative Negative Cocaine Screen, Urine Negative [...] procedure / Unknown 12/17/2024 10:29 AM EDT Narrative KaronShameka mcelroy, RN - 12/17/2024 10:29 AM EDT UTOX cup Lot#[id number] Exp. 01/14/26 Internal Pass Control us Chelsi Reece MD POINT OF CARE TEST EN TER/EDIT ORDERABLES Final Result * Hemoglobin A1c (07/10/2024 12:13 PM EDT) [...] patient sample. Estimated Average Glucose 117 mg/dL [facility] Comment:eAG = Estimated ave rage glucose which is %A1C expressed asaverage glucose, using the formula of the R3F-OvhdpaqSudzpkm Glucose study (ADAG), Diabetes Care, Vol.31,#8,Nov. 2007 Blood Venous blood specimen / Unknown 07/10/2024 12:13 PM EDT 07/10/2024 12:13 PM EDT us Chelsi Reece MD LAB BLOOD ORDERABLES Final Result [facility] [address] [place] [phone] * (ABNORMAL) Lipid Panel, Standard (07/10/2024 12:13 PM EDT) Triglycerides 167(H) <150 mg/dL [facility] Comment:Desirable Triglyceri de: less than 150 mg/dLBorderline High Triglyceride 150-199 mg/dLHigh Triglyceride: 200-499 mg/dLVery High Triglyceride: greater than or equal to 5OO mg/dL Cholesterol 163 <200 mg/dL [facility] Comment:Desirable Cholestero l: less than 200 mg/dLBorderline High Cholesterol: 200-239 mg/dLHigh Cholesterol: greater than 239 mg/dL LDL Cholesterol Calculated 90 <100 mg/dL [facility] Comment:Desirable LDL: less than 100 mg/dLNear Optimal/Above Optimal LDL: 110- 129 mg/dLBorderline High LDL: 130-159 mg/dLHigh LDL: 160-189 mg/dLVery High LDL: greater than or equal to 190 mg/dL HDL Cholesterol 40(L) >40 mg/dL [facility] Comment:Desirable HDL: great er than 40 mg/dL Note: This HDL assay may give artificially low results in patients with liver disease. Blood Venous blood specimen / Unknown 07/10/2024 12:13 PM EDT 07/10/2024 12:13 PM EDT Chelsi Reece MD LAB BLOOD ORDERABLES Final Result [facility] [address] [place] [phone] * BI Mammogram Screening Tomosynthesis Bilateral (03/01/2024 10:20 AM EST) Anatomical Region Laterality Modality Breast Bilateral Mammography 03/01/2024 10:2 0 AM EST Narrative 03/12/2024 10:52 AM EST [address] [place] [address] Mammography Report Signed Patient: Chelsi Connors MR#: [id number] : 1965 Acct:[id number] Age/Sex: 58 / F ADM Date: 03/01/24 Loc: HO.MAMMO Attending Dr: Chelsi Reece MD Ordering Physician: Chelsi Kauffman MD Results: 1Negative Date of Service: 03/01/24 Follow Up: 1 Year From Orig inal Mammogram Procedure(s): MM tomosynthesis screening BI Accession Number(s): [id number] cc: Chelsi Kauffman MD; Dc Bourne MD [...] 03/12/24 1049 DD/ 1020 TD/TT: 03/01/24 1045 Restorative Care Technician: Procedure Note Donotuseinterpreter, Image - [facility]12[facility] [address] [place] [address] Mammography Report Signed Patient: Chelsi Connors DMR#: [id number] : 1965Acct:[id number] Age/Sex: 58 / FADM Date: 03/01/24 Loc: HO.MAMMO Attending Dr: Chelsi Reece MD Ordering Physician: Chelsi Kauffman MDResults: 1Negative Date of Service: 03/01/24Follow Up: 1 Year From Orig inal Mammogram Procedure(s): MM tomosynthesis screening BI Accession Number(s): [id number] cc: Chelsi Kauffman MD; Dc Bourne MD [...] 03/12/24 1049 DD/ 1020 TD/TT: 03/01/24 1045 Restorative Care Technician: Chelsi Reece MD IMG BI PROCEDURES Fin al Result * Image-Guided Pap with Age-Based Screening??with CT/NG,??Trichomonas (07/04/2023 3:39 PM EDT) Trichomonas (NAAT) NOT DETECTED NOT DETECTED [facility] Comment:The analytical perfo rmance characteristics of thisassay have been determined by [employer]. Themodifications have not been cleared or approved bythe FDA. This assay has been validated pursuant to theIA regulations and is used for clinical purposes.For additional information, please refer tohttp://education.[employer]/faq/Trichomonastma(This link is being provided for information/educational purposes only.)THIS TEST WAS PERFORMED AT:[facility] [address] [phone] HANEY MD CTNG Ref Lab NOT DETECTED NOT DETECTED [facility] NG Ref Lab NOT DETECTED NOT DETECTED [facility] Pap Vial Vaginal structure / Unknown 07/04/2023 3:39 PM EDT 07/10/2023 8:55 AM EDT Narrative [facility] - 07/11/2023 8:28 PM EDT Collection Date: [id number]: Vagina us Chelsi Reece MD LAB CYTOLOGY ORDERABL ES Final Result Performing Organization Address [facility]/ZIP Co de Phone Number [facility] [address] [place] [address] [phone] * HPV mRNA E6/E7 w/Reflex to HPV Genotypes 16, 18/45 (07/04/2023 3:39 PM EDT) HPV nRNA E6/E7 Not Detected Not Detected [facility] Comment:Methodology: Transcr iption-Mediated AmplificationThis assay detects E6/E7 viral messenger RNA (mRNA) from 14high-risk HPV types (16,18,31,33,35,39,45,51,52,56,58,59,66,68).Cervical sources are required for HPV testing.If a vaginal source from a patient who has had atotal hysterectomy with removal of cervix wassubmitted, please contact the testing laboratoryfor alternative testing options.For additional information, please refer tohttp://education.[employer]/faq/ZTN459i6(This link if provided for information/educational purposes only.)THIS TEST WAS PERFORMED AT:[facility] [place] [phone] HANEY MD HPV mRNA E6/E7 [facility] HPV 16 RNA [facility] HPV 18/45 RNA [facility] 07/04/2023 3:39 PM EDT 07/05/2023 2:00 PM EDT us Chelsi Reece MD LAB CYTOLOGY ORDERABL ES Final Result Performing Organization Address [facility]/ZIP Co de Phone Number [facility] [address] [place] [phone] * (ABNORMAL) Hepatitis C Ab (12/21/2022 10:55 AM EDT) [facility] Hepatitis C Antibody Reactive( A) Nonreactive [facility] Comment:Presumptive evidence of antibodies to HCV. 12/21/2022 10:5 5 AM EDT 12/21/2022 10:55 AM EDT [facility] External Provider LAB BLO OD ORDERABLES Final Result Performing Organization Address [facility]/ZIP Co de Phone Number [facility] [address] [place] [address] [phone] * HIV Ab/Ag ([facility]) (12/21/2022 10:55 AM EDT) [facility] HIV AB/AG Nonreactive Nonreactive [facility] Comment:HIV-1 p24 Ag and/or HIV-1/HIV-2 Ab not detected.A test result that is nonreactive does not exclude thepossibility of exposure to or infection with HIV-1 and/orHIV-2. Nonreactive results in this assay for individualswith prior exposure to HIV-1 and/or HIV-2 may be due toantigen and antibody levels that are below the limit ofdetection of this assay.The [employer] HIV Ag/Ab Combo assay result andsupplemental assay results should be interpreted inconjunction with the patient's clinical presentation,history and other laboratory results. If the results areinconsistent with clinical evidence, additional testing issuggested to confirm the result. 12/21/2022 10:5 5 AM EDT 12/21/2022 10:55 AM EDT Generic External Data Provider LAB BLOOD ORDERAB LES Final Result Performing Organization Address [facility]/ZIP Co de Phone Number [facility] [facility] [address] [place] [address] [phone] * Hm Colonoscopy (08/25/2022) [facility] Colonoscopy Normal Normal Narrative Griselda Segal - 08/25/2022 Recommended 1 year follow up due to poor prep us Historical Provider HEALTH MAINTENANCE Final Result from Last 3 Months or Most Recently Relevant to Health Maintenance Insurance [place], [place] [facility] ONE CARE < 65 [place] [id number] [facility] Care Teams 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
--- OUTSIDE RECORDS SUMMARY | 2024-12-18 12:54 | XMS_ITS | Encounter Summary ---
Author Organization [employer] Address [address] [facility] 7 [place] [address] Care Team Providers Care Pharmacovigilance Safety Expert Name Role Phone Chelsi Kauffman MD Primary Care Provide r Reason for Visit * Reason Comments Med Refill Encounter Details Date Type Department Care Team ([facility] st Contact Info) Description 11/10/2023 Refill [facility] MEDICINE [address] [place] [address] Chelsi Kauffman MD [address] [place] [address] Chronic toe pain, left foot Social History [...] Description 12/26/2024 11:30 AM EDT Office Visit [facility] OPTOMETRY [address] [place] [address] Rito, Kennedi, OD 230 [place] [address] 02/28/2025 8:00 AM EST Office Visit [facility] ADULT DENTAL [address] [place] [address] Alireza, Nicole [address] [place] [address] 03/18/2025 9:45 AM EST Office Visit [facility] MEDICINE [address] [place] [address] documented as of this encounter Goals Goal [...] documented as of this encounter Care Teams Pharmacovigilance Safety Expert Relationship Specialty Start Date End Date Chelsi Kauffman MD [address] [place] [address] PCP - General Family Medicine 12/20/18 documented as of this encounter
--- OUTSIDE RECORDS SUMMARY | 2024-12-18 12:54 | XMS_ITS | Encounter Summary ---
Author Organization [employer] Address [address] [place] [address] Care Team Providers Care Shuttle Preparation Supervisor Name Role Phone Chelsi Kauffman MD Primary Care Provide r Reason for Visit * Reason Onset Date Comments Durable Medical Equipment 07/28/2022 Encounter Details Date Type Department Care Team ([facility] st Contact Info) Description 07/28/2022 Telephone [facility] MEDICINE [address] [place] [address] Chelsi Kauffman MD [address] [place] [address] Durable Medical Equipment Social History Tobacco Use [...] Description 12/26/2024 11:30 AM EDT Office Visit [facility] OPTOMETRY [address] [place] [address] Rito, Kennedi, OD 230 [place] [address] 02/28/2025 8:00 AM EST Office Visit [facility] ADULT DENTAL [address] [place] [address] Alireza, Nicole [address] [place] [address] 03/18/2025 9:45 AM EST Office Visit [facility] MEDICINE [address] [place] [address] documented as of this encounter Visit Diagnoses Not on filedocumented in this encounter Additional Health Concerns Assessment Noted Time PHQ-9 Depression Total Score: 24 023 2:25 PM EDT documented as of this encounter Care Teams Shuttle Preparation Supervisor Relationship Specialty Start Date End Date Chelsi Kauffman MD [address] [place] [address] PCP - General Family Medicine 12/20/18 documented as of this encounter
--- OUTSIDE RECORDS SUMMARY | 2024-12-18 12:54 | XMS_ITS | Encounter Summary ---
Author Organization [employer] Address [address] [place] [address] [address] [place] [address] Care Team Providers Care Mines Inspector Name Role Phone Chelsi Kauffman MD Primary Care Provide r Reason for Referral * Consultation (Routine) - Closed Specialty Diagnoses / Procedures Referred By Contac t Referred To Contact Physical Therapy Diagnoses Benign paroxysmal vertigo, unspecified laterality Christine Laurent MD [address] [place] [address] Phone: tel: fax: [facility] [address] [place] [address] Phone: tel: fax: Referral ID Status Reason Start Date Expiration Date V isits Requested Visits Authorized [id number] Closed Specialty Services Required 04/26/2024 04/26/2025 1 1 Encounter Details Date Type Department Care Team (Late st Contact Info) Description 04/26/2024 Orders Only [facility] MEDICINE [address] [place] [address] [phone] Christine Laurent MD [address] [place], [place] [phone] Benign paroxysmal vertigo, unspecified laterality (Primary Dx) [...] Description 12/26/2024 11:30 AM EDT Office Visit [facility] OPTOMETRY [address] [place] [address] Rito, Megan, OD [address] [place] [address] 02/28/2025 8:00 AM EST Office Visit [facility] ADULT DENTAL [address] [place] [address] Nicole Lay [address] [place] [address] 03/18/2025 9:45 AM EST Office Visit [facility] MEDICINE [address] [place] [address] Scheduled Referrals Name Type Priority Associated Diagnoses [...] documented as of this encounter Care Teams Mines Inspector Relationship Specialty Start Date End Date Chelsi Kauffman MD [address] [place] [address] PCP - General Family Medicine 12/20/18 documented as of this encounter
--- OUTSIDE RECORDS SUMMARY | 2024-12-18 12:54 | XMS_ITS | Encounter Summary ---
Author Organization [employer] Address [address] [place] [address] 7 [place] [address] Care Team Providers Care Medical Laboratory Scientist Name Role Phone Chelsi Kauffman MD Primary Care Provide r Reason for Visit * Reason Comments Med Refill Encounter Details Date Type Department Care Team ([facility] st Contact Info) Description 05/06/2024 Refill [facility] MEDICINE [address] [place] [address] Chelsi Kauffman MD [address] [place] [address] Mild intermittent asthma without complication; Asthma in [...] Description 12/26/2024 11:30 AM EDT Office Visit [facility] OPTOMETRY [address] [place] [address] Rito, Kennedi, OD [address] [place] [address] 02/28/2025 8:00 AM EST Office Visit [facility] ADULT DENTAL [address] [place] [address] Alireza, Nicole [address] [place] [address] 03/18/2025 9:45 AM EST Office Visit [facility] MEDICINE [address] [place] [address] documented as of this encounter Goals Goal [...] documented as of this encounter Care Teams Medical Laboratory Scientist Relationship Specialty Start Date End Date Chelsi Kauffman MD [address] [place] [address] PCP - General Family Medicine 12/20/18 documented as of this encounter
[2024-12-18 14:54] VITALS: BP 119/61; PULSE 75; RESP 18; TEMP 36.9; O2SAT 95
[2024-12-18 16:44] VITALS: BP 119/61; PULSE 75; RESP 18; TEMP 36.9; O2SAT 95
== END 2024-12-18 16:44 | disposition home or self-care (01) ==
PROVIDERS: Emergency Provider Emergency Medicine; PCP Internal Medicine
DX: S00.93XA Contusion of unspecified part of head, initial encounter (principal); R51.9 Headache, unspecified; R07.89 Other chest pain; W19.XXXA Unspecified fall, initial encounter
CPT/HCPCS: 70450; 71250; 72125; 74176; 99284

== ENCOUNTER → 2024-12-18 10:18 | Outpatient (BNV) | payer OTHER, SELFPAY | PROVIDERS: Emergency Provider Emergency Medicine; PCP Internal Medicine; Visit Provider Radiology Diagnostic Radiology | DX: K42.9 Umbilical hernia without obstruction or gangrene (principal); M40.05 Postural kyphosis, thoracolumbar region; M47.812 Spondylosis without myelopathy or radiculopathy, cervical region; G31.89 Other specified degenerative diseases of nervous system | CPT/HCPCS: 70450; 71250; 72125; 74176 ==

== ENCOUNTER 2025-01-21 10:41 | Day surgery (SDC) | payer OTHER, SELFPAY ==
--- OUTSIDE RECORDS SUMMARY | 2025-01-14 14:36 | XMS_ITS | Encounter Summary ---
Author Organization [employer] Address [address] [place] [address] [facility] [place] [address] Care Team Providers Care Accountant Clerk Name Role Phone Chelsi Kauffman MD Primary Care Provide r Reason for Visit * Reason Comments Med Refill Encounter Details Date Type Department Care Team ([facility] st Contact Info) Description 03/31/2023 Refill [facility] MEDICINE [address] [place] [address] Chelsi Kauffman MD [address] [place] [address] Dermatitis, seborrheic; Polyarthralgia Social History Tobacco Use [...] Care Team (Late st Contact Info) Description 01/29/2025 11:30 AM EDT Office Visit [facility] OPTOMETRY [address] [place] [address] Rito, Kennedi, OD [address] [place] [address] 02/28/2025 8:00 AM EST Office Visit [facility] ADULT DENTAL [address] [place] [address] Alireza, Nicole [address] [place] [address] 03/18/2025 9:45 AM EST Office Visit [facility] MEDICINE [address] [place] [address] documented as of this encounter Visit Diagnoses Diagnosis Dermatitis, seborrheic Unspecified seborrheic dermatitis Polyarthralgia Pain in joint, multiple sites documented in this encounter Additional Health Concerns Assessment Noted Time PHQ-9 Depression Total Score: 24 023 2:25 PM EDT documented as of this encounter Care Teams Accountant Clerk Relationship Specialty Start Date End Date Chelsi Kauffman MD [address] [place] [address] PCP - General Family Medicine 12/20/18 documented as of this encounter
--- OUTSIDE RECORDS SUMMARY | 2025-01-14 14:36 | XMS_ITS | Encounter Summary ---
Author Organization [employer] Address [address] [place] [address] [facility] [place] [address] Care Team Providers Care Clutch Operator Name Role Phone Chelsi Kauffman MD Primary Care Provide r Reason for Visit * Reason Comments Med Refill Encounter Details Date Type Department Care Team ([facility] st Contact Info) Description 04/04/2023 Refill [facility] MEDICINE [address] [place] [address] Chelsi Kauffman MD [address] [place] [address] Asthma in adult, moderate persistent, uncomplicated Social [...] Office Visit [facility] OPTOMETRY [address] [place] [address] Rito, Kennedi, OD [address] [place] [address] 02/28/2025 8:00 AM EST Office Visit [facility] ADULT DENTAL [address] [place] [address] Alireza, Nicole [address] [place] [address] 03/18/2025 9:45 AM EST Office Visit [facility] MEDICINE [address] [place] [address] documented as of this encounter Visit Diagnoses Diagnosis Asthma in adult, moderate persistent, uncomplicated documented in this encounter Additional Health Concerns Assessment Noted Time PHQ-9 Depression Total Score: 24 023 2:25 PM EDT documented as of this encounter Care Teams Clutch Operator Relationship Specialty Start Date End Date Chelsi Kauffman MD [address] [place] [address] PCP - General Family Medicine 12/20/18 documented as of this encounter
--- OUTSIDE RECORDS SUMMARY | 2025-01-14 14:36 | XMS_ITS | Encounter Summary ---
Author Organization [employer] Address [address] [place] [address] [facility] [place] [address] Care Team Providers Care Germination Worker Name Role Phone Chelsi Kauffman MD Primary Care Provide r Reason for Visit * Reason Comments Med Refill Encounter Details Date Type Department Care Team ([facility] st Contact Info) Description 03/08/2023 Refill [facility] MEDICINE [address] [place] [address] Chelsi Kauffman MD [address] [place] [address] Migraine without aura, not refractory Social History [...] Description 01/29/2025 11:30 AM EDT Office Visit [facility] OPTOMETRY [address] [place] [address] Rito, Kennedi, OD [address] [place] [address] 02/28/2025 8:00 AM EST Office Visit [facility] ADULT DENTAL [address] [place] [address] Alireza, Nicole [address] [place] [address] 03/18/2025 9:45 AM EST Office Visit [facility] MEDICINE [address] [place] [address] documented as of this encounter Visit Diagnoses Diagnosis Migraine without aura, not refractory documented in this encounter Additional Health Concerns Assessment Noted Time PHQ-9 Depression Total Score: 24 023 2:25 PM EDT documented as of this encounter Care Teams Germination Worker Relationship Specialty Start Date End Date Chelsi Kauffman MD [address] [place] [address] PCP - General Family Medicine 12/20/18 documented as of this encounter
--- OUTSIDE RECORDS SUMMARY | 2025-01-14 14:36 | XMS_ITS | Encounter Summary ---
Author Organization [employer] Address [address] [place] [address] [facility] [place] [address] Care Team Providers Care Nursing Attendant Name Role Phone Chelsi Kauffman MD Primary Care Provide r Reason for Visit * Reason Comments Med Refill Encounter Details Date Type Department Care Team ([facility] st Contact Info) Description 12/16/2024 Refill [facility] MEDICINE [address] [place] [address] Chelsi Kauffman MD [address] [place] [address] Preventative health care; Hypertension, unspecified type Social [...] Description 01/29/2025 11:30 AM EDT Office Visit [facility] OPTOMETRY [address] [place] [address] Rito, Kennedi, OD [address] [place] [address] 02/28/2025 8:00 AM EST Office Visit [facility] ADULT DENTAL [address] [place] [address] Alireza, Nicole [address] [place] [address] 03/18/2025 9:45 AM EST Office Visit [facility] MEDICINE [address] [place] [address] documented as of this encounter Goals Goal Patient Goal Type Associated Problems Recent Progress Patient-Stated? Author Record your blood pressure once per day Blood Pressure On track( 024 12:41 PM EDT) No Alena Cerda Blood Pressure < 140/90 Blood Pressure 124/82(2024 11:29 AM EDT) No Alena Cerda documented as of this encounter Visit Diagnoses Diagnosis Preventative health care Routine general medical examination at a health care facility Hypertension, unspecified type documented in this encounter Additional Health Concerns Assessment Noted Time PHQ-9 Depression Total Score: 0 01/17/20 24 11:19 AM EDT documented as of this encounter Care Teams Nursing Attendant Relationship Specialty Start Date End Date Chelsi Kauffman MD [address] [place] [address] PCP - General Family Medicine 12/20/18 documented as of this encounter
--- OUTSIDE RECORDS SUMMARY | 2025-01-14 14:36 | XMS_ITS | Encounter Summary ---
Author Organization [employer] Address 75 [facility] 7t [place] [address] Care Team Providers Care Health Support Specialist Name Role Phone Chelsi Kauffman MD Primary Care Provide r Encounter Details Date Type Department Care Team (Late st Contact Info) Description 01/17/2023 Abstract [facility] [address] [place] [address] Griselda Segal Social History Tobacco Use Types [...] 01/29/2025 11:30 AM EDT Office Visit [facility] [address] [place] [address] Rito, Kennedi, OD 230 [place] [address] 02/28/2025 8:00 AM EST Office Visit [facility] ADULT DENTAL [address] [place] [address] Alireza, Nicole [address] [place] [address] 03/18/2025 9:45 AM EST Office Visit [facility] [address] [place] [address] documented as of this encounter Procedures Procedure [...] documented as of this encounter Care Teams Health Support Specialist Relationship Specialty Start Date End Date Chelsi Kauffman MD 230 [place] [address] PCP - General Family Medicine 12/20/18 documented as of this encounter
--- OUTSIDE RECORDS SUMMARY | 2025-01-14 14:36 | XMS_ITS | Encounter Summary ---
Author Organization [employer] Address 75 [facility] 7 [place] [address] Care Team Providers Care Extractor Machine Operator Name Role Phone Chelsi Kauffman MD Primary Care Provide r Reason for Visit * Reason Comments Med Refill Encounter Details Date Type Department Care Team ([facility] st Contact Info) Description 05/09/2023 Refill [facility] MEDICINE [address] [place] [address] Chelsi Kauffman MD [address] [place] [address] Migraine without aura, not refractory Social History [facility] [address] [place] [address] Rito, Kennedi, OD 230 [place] [address] 02/28/2025 8:00 AM EST Office Visit [facility] ADULT DENTAL [address] [place] [address] Alireza, Nicole [address] [place] [address] 03/18/2025 9:45 AM EST Office Visit [facility] MEDICINE [address] [place] [address] documented as of this encounter Visit Diagnoses Diagnosis Migraine without aura, not refractory documented in this encounter Additional Health Concerns Assessment Noted Time PHQ-9 Depression Total Score: 0 04/25/19 24 9:30 AM EST documented as of this encounter Care Teams Extractor Machine Operator Relationship Specialty Start Date End Date Chelsi Kauffman MD [address] [place] [address] PCP - General Family Medicine 12/20/18 documented as of this encounter
--- OUTSIDE RECORDS SUMMARY | 2025-01-14 14:36 | XMS_ITS | Encounter Summary ---
Author Organization [employer] Address [address] [place] [address] Care Team Providers Care Engine Designer Name Role Phone Chelsi Kauffman MD Primary Care Provide r Encounter Details Date Type Department Care Team (Latest Contact Info) Description 11/23/2021 Abstract [facility] CONVERSIONS Dental, Provider, DDS Social History [...] Description 01/29/2025 11:30 AM EDT Office Visit [facility] OPTOMETRY [address] [place] [address] Rito, Kennedi, OD 230 [place] [address] 02/28/2025 8:00 AM EST Office Visit [facility] ADULT DENTAL [address] [place] [address] Alireza, Nicole [address] [place] [address] 03/18/2025 9:45 AM EST Office Visit [facility] MEDICINE [address] [place] [address] documented as of this encounter Visit Diagnoses Not on filedocumented in this encounter Care Teams Engine Designer Relationship Specialty Start Date End Date Chelsi Kauffman MD [address] [place] [address] PCP - General Family Medicine 12/20/18 documented as of this encounter
--- OUTSIDE RECORDS SUMMARY | 2025-01-14 14:36 | XMS_ITS | Encounter Summary ---
Author Organization [employer] Address [address] [place] [address] Care Team Providers Care Snubber Name Role Phone Chelsi Kauffman MD Primary Care Provide r Reason for Visit * Reason Comments Med Refill Encounter Details Date Type Department Care Team (Late Contact Info) Description 09/18/[address] [facility] MEDICINE [address] [place] [address] Chelsi Kauffman MD [address] [place] [address] Asthma in adult, moderate persistent, uncomplicated Social [...] Department Care Team (Late Contact Info) Description 01/29/2025 11:30 AM EDT Office Visit [facility] OPTOMETRY [address] [place] [address] Kennedi Veras OD 230 [place] [address] 02/28/2025 8:00 AM EST Office Visit [facility] ADULT DENTAL [address] [place] [address] Nicole Lay [address] [place] [address] 03/18/2025 9:45 AM EST Office Visit [facility] MEDICINE [address] [place] [address] documented as of this encounter Visit Diagnoses Diagnosis Asthma in adult, moderate persistent, uncomplicated documented in this encounter Additional Health Concerns Assessment Noted Time PHQ-9 Depression Total Score: 24 023 2:25 PM EDT documented as of this encounter Care Teams Snubber Relationship Specialty Start Date End Date Chelsi Kauffman MD [address] [place] [address] PCP - General Family Medicine 12/20/18 documented as of this encounter
--- OUTSIDE RECORDS SUMMARY | 2025-01-14 14:36 | XMS_ITS | Clinical Summary ---
Author Organization 175 [facility] Address [address] [place] [address] Phone Care Team Providers Care Agricultural Equipment Sales Engineer Name Role Phone Jesse Kauffman MD Primary Care Provide r Social History Tobacco Use Types Packs/Day Years Used Date Smoking Tobacco: Never Assessed Comments Unknown Sex and Gender Information Value Date Recorded Sex Assigned at Not on file Legal Sex Female 10:26 AM EST Gender Identity Not on file Sexual Orientation Not on file Plan of Treatment Upcoming Encounters Date Type Department Care Team ([facility] Contact Info) Description 02/20/2025 9:30 AM EST Office Visit [facility] - [place] [address] [phone] Harjit Zabala, DPM [address] [phone] Health Maintenance Due Date Last Done Comments Breast Cancer Screening 1965 Colorectal Cancer Screening: Colonoscopy 1964 DTaP,Tdap,and Td Vaccines (1 - Tdap) 08/01/1983 Cervical Cancer Screening: P ap Smear 1985 Pneumococcal Vaccine: 50+ Ye ars (1 of 1 - PCV) 2014 Zoster Vaccines (1 of 2) 2014 Depression Screening 04/10/2024 HIV Screening 09/24/2024 Hepatitis C Screening 09/24/2024 Medicare Annual Wellness Visit 09/24/2024 Social Influencers of Health Screening 09/24/2024 COVID-19 Vaccine (1 - 2023-2 5 season) 2024 Influenza Vaccine (#1) 2024 RSV Immunization Adult Patie nts (1 - 1-dose 75+ series) 08/01/2039 HIB Vaccines Aged Out No longer eligi ble based on patient's age to complete this topic HPV Vaccines Aged Out No longer eligi ble based on patient's age to complete this topic Hepatitis A Vaccines Aged Out No long er eligible based on patient's age to complete this topic Hepatitis B Vaccines Aged Out No long er eligible based on patient's age to complete this topic IPV Vaccines Aged Out No longer eligi ble based on patient's age to complete this topic MMR Vaccines Aged Out No longer eligi ble based on patient's age to complete this topic Meningococcal ACWY Vaccine Aged Out N o longer eligible based on patient's age to complete this topic Meningococcal B Vaccine Aged Out No l onger eligible based on patient's age to complete this topic RSV Immunization Patients Un lashawn 20 months Aged Out No longer eligible b ased on patient's age to complete this topic Varicella Vaccines Aged Out No longer eligible based on patient's age to complete this topic Insurance [employer] MEDICARE Member Subscriber Plan / Payer (Ef fective 2021-Present) Name:JESSE ANNA Relation to Subscriber:Self Name:Jesse Anna Payer ID:[id number] Group ID:[id number] Type:Not on file Address: [place] [address] [place] [id number] MEDICAID - [place] Care Teams Agricultural Equipment Sales Engineer Relationship Specialty Start Date End Date Jesse Kauffman MD [address] [place] [phone] PCP - General Internal Medicine 02/26/21
--- OUTSIDE RECORDS SUMMARY | 2025-01-14 14:36 | XMS_ITS | Encounter Summary ---
Author Organization [employer] Address 75 [facility] 7 [place] [address] Care Team Providers Care Can Maker Name Role Phone Chelsi Kauffman MD Primary Care Provide r Reason for Visit * Reason Comments Med Refill Encounter Details Date Type Department Care Team ([facility] st Contact Info) Description 09/14/2023 Refill [facility] MEDICINE [address] [place] [address] Chelsi Kauffman MD [address] [place] [address] Polyarthralgia Social History Tobacco Use Types Packs/Day [...] 01/29/2025 11:30 AM EDT Office Visit [facility] OPTOMETRY [address] [place] [address] Rito, Kennedi, OD 230 [place] [address] 02/28/2025 8:00 AM EST Office Visit [facility] ADULT DENTAL [address] [place] [address] Alireza, Nicole [address] [place] [address] 03/18/2025 9:45 AM EST Office Visit [facility] MEDICINE [address] [place] [address] documented as of this encounter Goals Goal [...] documented as of this encounter Care Teams Can Maker Relationship Specialty Start Date End Date Chelsi Kauffman MD [address] [place] [address] PCP - General Family Medicine 12/20/18 documented as of this encounter
--- OUTSIDE RECORDS SUMMARY | 2025-01-14 14:36 | XMS_ITS | Encounter Summary ---
Author Organization [employer] Address [address] [place] [address] [facility] [place] [address] Care Team Providers Care Shellacker Name Role Phone Chelsi Kauffman MD Primary Care Provide r Reason for Visit * Reason Comments Med Refill Encounter Details Date Type Department Care Team ([facility] st Contact Info) Description 03/16/2023 Refill [facility] MEDICINE [address] [place] [address] Chelsi Kauffman MD [address] [place] [address] Dry eyes Social History Tobacco Use Types [...] 11:30 AM EDT Office Visit [facility] OPTOMETRY [address] [place] [address] Rito, Kennedi, OD 230 [place] [address] 02/28/2025 8:00 AM EST Office Visit [facility] ADULT DENTAL [address] [place] [address] Alireza, Nicole [address] [place] [address] 03/18/2025 9:45 AM EST Office Visit [facility] MEDICINE [address] [place] [address] documented as of this encounter Visit Diagnoses Diagnosis Dry eyes Unspecified tear film insufficiency documented in this encounter Additional Health Concerns Assessment Noted Time PHQ-9 Depression Total Score: 24 023 2:25 PM EDT documented as of this encounter Care Teams Shellacker Relationship Specialty Start Date End Date Chelsi Kauffman MD [address] [place] [address] PCP - General Family Medicine 12/20/18 documented as of this encounter
--- OUTSIDE RECORDS SUMMARY | 2025-01-14 14:36 | XMS_ITS | Encounter Summary ---
Author Organization [employer] Address 75 [facility] 7 [place] [address] Care Team Providers Care Facility Service Manager Name Role Phone Chelsi Kauffman MD Primary Care Provide r Reason for Visit * Reason Comments Med Refill Encounter Details Date Type Department Care Team ([facility] st Contact Info) Description 03/31/[address] [facility] MED & PEDS [address] [place] [address] Kiana Santos, DO 230 [place] [address] Vitamin D deficiency, unspecified Social History Tobacco [...] Description 01/29/2025 11:30 AM EDT Office Visit [facility] OPTOMETRY [address] [place] [address] Rito, Kennedi, OD 230 [place] [address] 02/28/2025 8:00 AM EST Office Visit [facility] ADULT DENTAL [address] [place] [address] Alireza, Nicole [address] [place] [address] 03/18/2025 9:45 AM EST Office Visit [facility] MEDICINE [address] [place] [address] documented as of this encounter Visit Diagnoses Diagnosis Vitamin D deficiency, unspecified documented in this encounter Additional Health Concerns Assessment Noted Time PHQ-9 Depression Total Score: 24 023 2:25 PM EDT documented as of this encounter Care Teams Facility Service Manager Relationship Specialty Start Date End Date Chelsi Kauffman MD [address] [place] [address] PCP - General Family Medicine 12/20/18 documented as of this encounter
--- OUTSIDE RECORDS SUMMARY | 2025-01-14 14:36 | XMS_ITS | Encounter Summary ---
Author Organization [employer] Address [address] [place] [address] Care Team Providers Care Hydrometeorology Teacher Name Role Phone Chelsi Kauffman MD Primary Care Provide r Encounter Details Date Type Department Care Team (Latest Contact Info) Description 09/04/2020 Abstract [facility] CONVERSIONS Dental, Provider, DDS Social History Tobacco [...] [facility] [address] [place] [address] Rito, Kennedi, OD 230 [place] [address] 02/28/2025 8:00 AM EST Office Visit [facility] ADULT DENTAL [address] [place] [address] Alireza, Nicole [address] [place] [address] 03/18/2025 9:45 AM EST Office Visit [facility] MEDICINE [address] [place] [address] documented as of this encounter Visit Diagnoses Not on filedocumented in this encounter Care Teams Hydrometeorology Teacher Relationship Specialty Start Date End Date Chelsi Kauffman MD [address] [place] [address] PCP - General Family Medicine 12/20/18 documented as of this encounter
--- OUTSIDE RECORDS SUMMARY | 2025-01-14 14:36 | XMS_ITS | Encounter Summary ---
Author Organization [employer] Address [address] [place] [address] [place] [address] Care Team Providers Care Special Technical Operations Officer Name Role Phone Chelsi Kauffman MD Primary Care Provide r Reason for Visit * Reason Onset Date Comments Reschedule 06/13/2023 Encounter Details Date Type Department Care Team ([facility] st Contact Info) Description 06/13/2023 Telephone [facility] MEDICINE [address] [place] [address] Chelsi Kauffman MD [address] [place] [address] Reschedule Social History Tobacco Use Types Packs/Day [...] 04/07 Derm appointment. Please contact pt at [phone] documented in this encounter Plan of Treatment Upcoming Encounters Date Type Department Care Team (Late st Contact Info) Description 01/29/2025 11:30 AM EDT Office Visit [facility] OPTOMETRY [address] [place] [address] Rito, Kennedi, OD 230 [place] [address] 02/28/2025 8:00 AM EST Office Visit [facility] ADULT DENTAL [address] [place] [address] Alireza, Nicole [address] [place] [address] 03/18/2025 9:45 AM EST Office Visit [facility] MEDICINE [address] [place] [address] documented as of this encounter Visit Diagnoses Not on filedocumented in this encounter Additional Health Concerns Assessment Noted Time PHQ-9 Depression Total Score: 0 04/25/19 24 9:30 AM EST documented as of this encounter Care Teams Special Technical Operations Officer Relationship Specialty Start Date End Date Chelsi Kauffman MD [address] [place] [address] PCP - General Family Medicine 12/20/18 documented as of this encounter
--- OUTSIDE RECORDS SUMMARY | 2025-01-14 14:37 | XMS_ITS | Encounter Summary ---
Author Organization [employer] Address [address] [place] [address] [place] [address] Care Team Providers Care Network Architect Manager Name Role Phone Chelsi Kauffman MD Primary Care Provide r Reason for Visit * Reason Onset Date Comments Med Refill 05/30/2024 Encounter Details Date Type Department Care Team (Late st Contact Info) Description 05/30/2024 Refill [facility] MEDICINE [address] [place] [address] Chelsi Kauffman MD [address] [place] [address] Social History Tobacco Use Types Packs/Day Years [...] MG/0.5ML solution auto-injector To be sent to: [facility] - [place], [place] - [address] [place] [address] documented in this encounter Plan of Treatment Upcoming Encounters Date Type Department Care Team (Late st Contact Info) Description 01/29/2025 11:30 AM EDT Office Visit [facility] OPTOMETRY [address] [place] [address] Rito, Kennedi, OD 230 [place] [address] 02/28/2025 8:00 AM EST Office Visit [facility] ADULT DENTAL [address] [place] [address] Nicole Lay [address] [place] [address] 03/18/2025 9:45 AM EST Office Visit [facility] MEDICINE [address] [place] [address] documented as of this encounter Goals Goal [...] documented as of this encounter Care Teams Network Architect Manager Relationship Specialty Start Date End Date Chelsi Kauffman MD [address] [place] [address] PCP - General Family Medicine 12/20/18 documented as of this encounter
--- OUTSIDE RECORDS SUMMARY | 2025-01-14 14:37 | XMS_ITS | Encounter Summary ---
Author Organization [employer] Address [address] [place] [address] Care Team Providers Care De Icer Kit Assembler Name Role Phone Chelsi Kauffman MD Primary Care Provide r Reason for Visit * Reason Onset Date Comments Durable Medical Equipment 07/28/2022 Encounter Details Date Type Department Care Team ([facility] st Contact Info) Description 07/28/2022 Telephone [facility] MEDICINE [address] [place] [address] Chelsi Kauffman MD [address] [place] [address] Durable Medical Equipment Social History Tobacco Use [...] Description 01/29/2025 11:30 AM EDT Office Visit [facility] OPTOMETRY [address] [place] [address] RitoKennedi blandon, OD 230 [place] [address] 02/28/2025 8:00 AM EST Office Visit [facility] ADULT DENTAL [address] [place] [address] Alireza, Nicole [address] [place] [address] 03/18/2025 9:45 AM EST Office Visit [facility] MEDICINE [address] [place] [address] documented as of this encounter Visit Diagnoses Not on filedocumented in this encounter Additional Health Concerns Assessment Noted Time PHQ-9 Depression Total Score: 24 023 2:25 PM EDT documented as of this encounter Care Teams De Icer Kit Assembler Relationship Specialty Start Date End Date Chelsi Kauffman MD [address] [place] [address] PCP - General Family Medicine 12/20/18 documented as of this encounter
--- OUTSIDE RECORDS SUMMARY | 2025-01-14 14:37 | XMS_ITS | Encounter Summary ---
Author Organization [employer] Address [address] [place] [address] [place] [address] Care Team Providers Care Application Architect Name Role Phone Chelsi Kauffman MD Primary Care Provide r Reason for Referral * Consultation (Routine) - Closed Specialty Diagnoses / Procedures Referred By Contac t Referred To Contact Physical Therapy Diagnoses Benign paroxysmal vertigo, unspecified laterality Christine Laurent MD [address] [place] [address] Phone: tel: fax: [facility] Physical Therapy [address] [place] [address] Phone: tel: fax: Referral ID Status Reason Start Date Expiration Date V isits Requested Visits Authorized [id number] Closed Specialty Services Required 04/26/2024 04/26/2025 1 1 Encounter Details Date Type Department Care Team (Late st Contact Info) Description 04/26/2024 Orders Only [facility] MEDICINE [address] [place] [phone] Christine Laurent MD [address] [place], [place] [phone] Benign paroxysmal vertigo, unspecified laterality (Primary Dx) [...] 11:30 AM EDT Office Visit [facility] OPTOMETRY [address] [place] [address] Rito, Megan, OD 230 [place] [address] 02/28/2025 8:00 AM EST Office Visit [facility] ADULT DENTAL [address] [place] [address] Nicole Lay [address] [place] [address] 03/18/2025 9:45 AM EST Office Visit [facility] MEDICINE [address] [place] [address] Scheduled Referrals Name Type Priority Associated Diagnoses [...] documented as of this encounter Care Teams Application Architect Relationship Specialty Start Date End Date Chelsi Kauffman MD [address] [place] [address] PCP - General Family Medicine 12/20/18 documented as of this encounter
--- OUTSIDE RECORDS SUMMARY | 2025-01-14 14:37 | XMS_ITS | Encounter Summary ---
Author Organization [employer] Address [address] [place] [address] [place] [address] Care Team Providers Care Underwriting Service Representative Name Role Phone Chelsi Kauffman MD Primary Care Provide r Reason for Visit * Reason Onset Date Comments triage 06/09/2022 Encounter Details Date Type Department Care Team ([facility] st Contact Info) Description 06/09/2022 Telephone [facility] MEDIC[facility] [address] [place] [address] Chelsi Kauffman MD [address] [place] [address] triage Social History Tobacco Use Types Packs/Day [...] 06/09/2022 12:16 PM EST Triage call with [employer] Technologist ID [id number] Pt reports third time with Covid. Covid [...] accepted this outcome Please contact pt at [phone] Green[place]ic Speaker documented in this encounter Plan of Treatment Upcoming Encounters Date Type Department Care Team (Late st Contact Info) Description 01/29/2025 11:30 AM EDT Office Visit [facility] OPTOMETRY [address] [place] [address] Kennedi Veras, OD 230 [place] [address] 02/28/2025 8:00 AM EST Office Visit [facility] ADULT DENTAL [address] [place] [address] Alireza Nicole [address] [place] [address] 03/18/2025 9:45 AM EST Office Visit [facility] [address] [place] [address] documented as of this encounter Visit Diagnoses Not on filedocumented in this encounter Care Teams Underwriting Service Representative Relationship Specialty Start Date End Date Chelsi Kauffman MD [address] [place] [address] PCP - General Family Medicine 12/20/18 documented as of this encounter
--- OUTSIDE RECORDS SUMMARY | 2025-01-14 14:37 | XMS_ITS | Encounter Summary ---
Author Organization [employer] Address [address] [facility] 7 [place] [address] Care Team Providers Care Workers' Compensation Mediator Name Role Phone Chelsi Kauffman MD Primary Care Provide r Encounter Details Date Type Department Care Team ([facility] st Contact Info) Description 03/25/2024 Telephone [facility] MEDICINE [address] [place] [address] Chelsi Kauffman MD [address] [place] [address] Social History Tobacco Use Types Packs/Day Years [...] Description 01/29/2025 11:30 AM EDT Office Visit [facility] OPTOMETRY [address] [place] [address] RitoKennedi blandon, OD [address] [place] [address] 02/28/2025 8:00 AM EST Office Visit [facility] ADULT DENTAL [address] [place] [address] Alireza, Nicole [address] [place] [address] 03/18/2025 9:45 AM EST Office Visit [facility] MEDICINE [address] [place] [address] documented as of this encounter Goals Goal [...] documented as of this encounter Care Teams Workers' Compensation Mediator Relationship Specialty Start Date End Date Chelsi Kauffman MD [address] [place] [address] PCP - General Family Medicine 12/20/18 documented as of this encounter
--- OUTSIDE RECORDS SUMMARY | 2025-01-14 14:37 | XMS_ITS | Encounter Summary ---
Author Organization [employer] Address [address] [place] [address] Care Team Providers Care Chief Commercial Officer Name Role Phone Chelsi Kauffman MD Primary Care Provide r Reason for Visit * Reason Comments Med Refill Encounter Details Date Type Department Care Team (Late Contact Info) Description 08/29/2022 Refill [facility] CHC MED & PEDS [address] [place] [address] Chelsi Kauffman MD [address] [place] [address] Mild intermittent asthma without complication Social History [...] Description 01/29/2025 11:30 AM EDT Office Visit [facility] OPTOMETRY [address] [place] [address] Kennedi Veras OD [address] [place] [address] 02/28/2025 8:00 AM EST Office Visit [facility] ADULT DENTAL [address] [place] [address] Nicole Lay [address] [place] [address] 03/18/2025 9:45 AM EST Office Visit [facility] MEDICINE [address] [place] [address] documented as of this encounter Visit Diagnoses Diagnosis Mild intermittent asthma without complication documented in this encounter Additional Health Concerns Assessment Noted Time PHQ-9 Depression Total Score: 24 023 2:25 PM EDT documented as of this encounter Care Teams Chief Commercial Officer Relationship Specialty Start Date End Date Chelsi Kauffman MD [address] [place] [id number] PCP - General Family Medicine 12/20/18 documented as of this encounter
--- OUTSIDE RECORDS SUMMARY | 2025-01-14 14:37 | XMS_ITS | Encounter Summary ---
Author Organization [employer] Address [address] [facility] 7 [place] [address] Care Team Providers Care Clothing Cutter Name Role Phone Chelsi Kuaffman MD Primary Care Provide r Reason for Visit * Reason Comments Med Refill Encounter Details Date Type Department Care Team ([facility] st Contact Info) Description 11/10/2023 Refill [facility] MEDICINE [address] [place] [address] Chelsi Kauffman MD [address] [place] [address] Chronic toe pain, left foot Social History [...] Description 01/29/2025 11:30 AM EDT Office Visit [facility] OPTOMETRY [address] [place] [address] Rito, Kennedi, OD [address] [place] [address] 02/28/2025 8:00 AM EST Office Visit [facility] ADULT DENTAL [address] [place] [address] Alireza, Nicole [address] [place] [address] 03/18/2025 9:45 AM EST Office Visit [facility] MEDICINE [address] [place] [address] documented as of this encounter Goals Goal [...] documented as of this encounter Care Teams Clothing Cutter Relationship Specialty Start Date End Date Chelsi Kauffman MD [address] [place] [address] PCP - General Family Medicine 12/20/18 documented as of this encounter
--- OUTSIDE RECORDS SUMMARY | 2025-01-14 14:37 | XMS_ITS | Encounter Summary ---
Author Organization [employer] Address [address] [facility] [address] [place] [address] Care Team Providers Care Fluid Power Mechanic Name Role Phone Chelsi Kauffman MD Primary Care Provide r Encounter Details Date Type Department Care Team (Late st Contact Info) Description 05/06/2024 Orders Only [facility] MEDICINE [address] [place] [address] Mariana Meyer MD [address] [place] [address] Social History Tobacco Use Types Packs/Day Years [...] Description 01/29/2025 11:30 AM EDT Office Visit [facility] OPTOMETRY [address] [place] [address] Rito, Kennedi, OD [address] [place] [address] 02/28/2025 8:00 AM EST Office Visit [facility] ADULT DENTAL [address] [place] [address] Alireza, Nicole [address] [place] [address] 03/18/2025 9:45 AM EST Office Visit [facility] MEDICINE [address] [place] [address] documented as of this encounter Goals Goal [...] documented as of this encounter Care Teams Fluid Power Mechanic Relationship Specialty Start Date End Date Chelsi Kauffman MD [address] [place] [address] PCP - General Family Medicine 12/20/18 documented as of this encounter
--- OUTSIDE RECORDS SUMMARY | 2025-01-14 14:37 | XMS_ITS | Encounter Summary ---
Author Organization [employer] Address [address] [place] [address] 7 [place] [address] Care Team Providers Care Secretary Bookkeeper Name Role Phone Chelsi Kauffman MD Primary Care Provide r Reason for Visit * Reason Comments Med Refill Encounter Details Date Type Department Care Team (Late st Contact Info) Description 08/24/2022 Refill [facility] CHC MED & PEDS [address] [place] [address] Mariana Meyer MD [address] [place] [address] Social History Tobacco Use Types Packs/Day Years [...] Upcoming Encounters Date Type Department Care Team ([facility] Contact Info) Description 01/29/2025 11:30 AM EDT Office Visit [facility] OPTOMETRY [address] [place] [address] Kennedi Veras, OD [address] [place] [address] 02/28/2025 8:00 AM EST Office Visit [facility] ADULT DENTAL [address] [place] [address] Alireza, Nicole [address] [place] [address] 03/18/2025 9:45 AM EST Office Visit [facility] MEDICINE [address] [place] [address] documented as of this encounter Visit Diagnoses Not on filedocumented in this encounter Additional Health Concerns Assessment Noted Time PHQ-9 Depression Total Score: 24 023 2:25 PM EDT documented as of this encounter Care Teams Secretary Bookkeeper Relationship Specialty Start Date End Date Chelsi Kauffman MD [address] [place] [address] PCP - General Family Medicine 12/20/18 documented as of this encounter
--- OUTSIDE RECORDS SUMMARY | 2025-01-14 14:37 | XMS_ITS | Clinical Summary ---
Author Organization [employer] Address [address] [place] [address] 7 [place] [address] Care Team Providers Care Head Of Visual Merchandising Name Role Phone Chelsi Kauffman MD Primary [...] mL 1 Active Blood Glucose Monitoring Suppl (Plazapoints (Cuponium) Lite) w/Device kitIndications:P rediabetes Use to test [...] (BMI) of 40.0 to 44.9 in adult ([facility]) INJECT ONE PEN (=12.5MG) SUBCUTANEOUSLY ONCE A [...] BLOOD SUGAR TWICE DAILY 100 each 11 025 Active Calcium Carb-Cholecalcif terri (Oyster Shell Calcium w/D) 500-5 MG-MCG tabletIndication s:Polyarthralgia TAKE 1 TABLET BY MOUTH EVERY MORNING 90 tablet 1 025 Active lidocaine-priloc sheryl (Emla) 2.5-2.5 % creamIndications :Long-term current use of opiate analgesic Apply thin layer by topical route 3-4 times daily as needed for pain 30 g 2 025 Active naloxone (Narcan) 4 mg/0.1 mL [...] episode of recurrent major depressive disorder (CMS/HCC) ([facility]) TAKE 1 TABLET BY MOUTH EVERY MORNING 30 tablet 3 025 Active DULoxetine (Cymbalta) [address] capsuleIndicatio ns:Moderate episode of recurrent major depressive disorder (CMS/HCC) ([facility]) TAKE 1 CAPSULE BY MOUTH EVERY MORNING 30 capsule 025 Active meclizine (Antivert) 25 MG tabletIndication s:Vertigo TAKE 1 TABLET BY MOUTH THREE TIMES DAILY 90 tablet 2 025 Active metFORMIN (Glucophage) 500 MG tabletIndication s:Prediabetes TAKE 1 TABLET BY MOUTH TWICE DAILY IN THE MORNING AND AT BEDTIME WITH FOOD 180 tablet 025 Active fluticasone (Flonase) 50 MCG/ACT nasal sprayIndications :Allergic conjunctivitis, unspecified laterality INSTILL 2 SPRAYS IN EACH NOSTRIL ONCE DAILY IN THE MORNING 48 g 025 Active oxyCODONE (Roxicodone) 5 MG immediate release tabletIndication s:Chronic midline low back pain with right-sided sciatica,Polyart hralgia Take 1 tablet (5 mg) by mouth every 12 (twelve) hours if needed for severe pain for up to 28 days. Do not start before December 20, 2024. 56 tablet 025 2024 Active lidocaine (Lidoderm) 5 % patchIndications :Rib pain on right side Apply 1 patch topically Once per day. Remove & discard patch within 12 hours or as directed by . 30 patch 1 025 Active Tirzepatide-Weig ht Management (Zepbound) 15 MG/0.5ML solution auto-injectorInd ications:Class 3 severe obesity due to excess calories with serious comorbidity and body mass index (BMI) of 40.0 to 44.9 in adult ([facility]) Inject 0.5 mL (15 mg) under the skin 1 (one) time per week. 2 mL 3 025 Active gabapentin (Neurontin) 600 MG tabletIndication s:Chronic toe pain, left foot TAKE 1 TABLET BY MOUTH TWICE DAILY IN THE MORNING AND IN THE EVENING 60 tablet 1 025 Active Tirzepatide-Weig ht Management (Zepbound) 15 MG/0.5ML solution auto-injectorInd ications:Class 3 severe obesity due to excess calories with serious comorbidity and body mass index (BMI) of 40.0 to 44.9 in adult ([facility]) Inject 0.5 mL (15 mg) under the skin 1 (one) time per week. 2 mL 3 025 2024 Discontinued(R eorder (will not trigger notification to Pharmacy)) gabapentin (Neurontin) 600 MG tabletIndication s:Chronic toe pain, left foot TAKE 1 TABLET BY MOUTH TWICE DAILY IN THE MORNING AND IN THE EVENING 60 tablet 1 025 2024 Discontinued oxyCODONE (Roxicodone) 5 MG immediate release tabletIndication s:Chronic midline low back pain with right-sided sciatica,Polyart hralgia TAKE 1 TABLET BY MOUTH EVERY TWELVE HOURS NEEDED FOR SEVERE PAIN 56 tablet 025 2024 Discontinued(R eorder (will not trigger notification to Pharmacy)) acetaminophen (Tylenol Extra Strength) 500 MG tabletIndication s:Rib pain on right side Take 1 tablet (500 mg) by mouth every 8 (eight) hours if needed for moderate pain for up to 20 days. 30 tablet 1 025 2024 Active Problems Problem Noted Date Diagnosed Date Fall (on) (from) other stairs and steps, initial encounter 12/24/2024 Rib pain on right side 12/24/2024 Assessment & Plan (12/24/2024 12:14 PM EDT): Counseling was done Apply lidocaine patch once daily on affected area She may take acetaminophen 500 mg every 8 hours as needed Continue with oxycodone as prescribed If symptoms persist or worse call us back or go to the emergency room Deformity of left ankle joint 09/23/2024 Acquired [...] lumbar anterolisthesis Rx: oxycodone 5mg BID Last [employer] agreement: 04/23/24 Tier: III (Q4-6 months), [...] 44.9 in adult 01/17/2024 Assessment & Plan (12/24/2024 12:16 PM EDT): Counseling about healthy diet and exercise done today Continue with Zepbound 15 mg weekly, patient denies any side effects Assessment & Plan (09/23/2024 12:56 PM EDT): [...] 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 - Recommended watching [employer] videos fro stretching and exercises that can [...] organization. Date Type Department Care Team Description 01/08/2025 Refill [facility] [address] [place] [phone] Chelsi Kauffman MD Chronic toe pain, left foot 12/24/2024 11:15 AM EDT Office Visit [address] [address] Chelsi Kauffman MD Fall (on) (from) other stairs and steps, initial encounter; Rib pain on right side; Class 3 severe obesity due to excess calories with serious comorbidity and body mass index (BMI) of 40.0 to 44.9 in adult 12/24/2024 Travel 12/23/[address] [address] Chelsi Kauffman MD chart prep 12/20/[address] [address] Chelsi Kauffman MD Durable Medical Equipment ([facility] [employer]: Multiple Items) 12/19/2024 Telephone [facility] [address] [place] [phone] Chelsi Kauffman MD Nurse Triage 12/19/2024 Refill [facility] [address] [place], [place] [phone] Chelsi Kauffman MD Chronic midline low back pain with right-sided sciatica; Polyarthralgia 12/17/2024 9:45 AM EDT Office Visit [facility] [address] [place] [address] Mackenzie Whatley, CAMP GUARD Anterolisthesis of lumbar spine (Primary Dx); Long-term current use of opiate analgesic 12/17/2024 Travel 12/16/2024 Refill [facility] [address] [place] [phone] Chelsi Kauffman MD Preventative health care; Hypertension, unspecified type 12/06/2024 Refill [facility] [address] [place] [address] Chelsi Kauffman MD Allergic conjunctivitis, unspecified laterality 12/05/2024 Refill [facility] [address] [place] [phone] Chelsi Kuaffman MD Prediabetes 12/04/2024 9:30 AM EDT Office Visit [facility] [address] [place] [phone] Granados-Cowan, [place], DDS Teeth missing (Primary Dx) 11/18/2024 Refill [facility] [address] [place] [address] Chelsi Kauffman MD Chronic midline low back pain with right-sided sciatica; Polyarthralgia 11/14/2024 Telephone [facility] [address] [place] [phone] Granados-Cowan, [place], DDS 11/10/2024 Refill [facility] [address] [place] [phone] Chelsi Kauffman MD Migraine without aura, not refractory; Moderate episode of recurrent major depressive disorder (CMS/HCC); Chronic toe pain, left foot; Vertigo 11/05/2024 Telephone [facility] [address] [place] [address] Granados-Cowan, [place], DDS 10/22/2024 Refill [facility] [address] [place] [address] Chelsi Kauffman MD Chronic midline low back pain with right-sided sciatica; Polyarthralgia 10/18/2024 Refill [facility] [address] [place] [address] Chelsi Kauffman MD Preventative health care; Hypertension, unspecified type from Last 3 Months Immunizations Immunization Administration [...] Sign Reading Time Taken Comments Blood Pressure 124/82 12/24/2024 11:29 AM EDT Pulse 91 12/24/2024 11:29 AM EDT Temperature 36.2 C (97.1 F) 12/24/2024 11:29 AM EDT Respiratory Rate 16 12/24/2024 11:29 AM EDT Oxygen Saturation 97% 12/24/2024 11:29 AM EDT Inhaled Oxygen Concentration - - Weight 113 kg (250 lb 3.2 oz) 12/24/2024 11:29 A M EDT Height 167.6 cm (5' 6 ) 12/24/2024 11:29 AM EDT Body Mass Index 40.38 12/24/2024 11:29 AM EDT Plan of Treatment Upcoming Encounters Date Type Department Care Team (Late st Contact Info) Description 01/29/2025 11:30 AM EDT Office Visit [facility] [address] [place] [address] Rito, Kennedi, OD [address] [place] [address] 02/28/2025 8:00 AM EST Office Visit [facility] [address] [place] [address] Nicole Lay [address] [place] [address] 03/18/2025 9:45 AM EST Office Visit [facility] [address] [place] [address] Health Maintenance Due Date Last Done Comments [...] Use Screening 02/19/2025 02/20/2024 Mammogram 03/01/2025 03/01/2024, 06/09/2021, 09/23/2021, Additional history exists SDOH Screening 06/13/2025 06/13/2024 Diabetes: Hemoglobin A1C 07/10/2025 04 025, 01/17/2024, 08/19/2022, Additional history exists Dental X-Ray: Bitewings 08/09/2025 08/09/19 25, 02/24/2023, 11/23/2021, Additional history exists Disability Screening 09/23/2025 09/23/2024 Tobacco Screening 12/24/2025 12/24/2024 Dental X-Ray: Full Mouth 02/25/2026 02/24/2023, 12/09/2018 [...] 124/82(2024 11:29 AM EDT) No Alena Cerda Procedures Procedure Name Priority Date/Time Associated Diagnosis Comments CT ABDOMEN PELVIS WO CONTRAST Routine 12/18/2024 12:[address] CHEST WO CONTRAST Routine 12/18/2024 12:[address] HEAD WO CONTRAST Routine 12/18/2024 1 2:[address] CERVICAL SPINE WO CONTRAST Routine 12/18/2024 12:48 PM EDT POCT ANIKA-14 URINE DRUG SCREEN Routine 12/17/2024 10:29 AM EDT Long-term current use of opiate analgesic CASE PRESENTATION, DETAILED AND EXTENSIVE TREATMENT PLANNING Routine 12/04/2024 9:30 AM EDT Teeth missing 20 ADD TOOTH TO EXISTING PARTIAL DENTURE Routine 12/04/2024 9:30 AM EDT Teeth missing PROPHYLAXIS - ADULT Routine 08/08/2024 1 1:00 [...] Recently Relevant to Health Maintenance Results * CT Cervical Spine w/o Contrast (12/18/2024 12:48 PM EDT) Anatomical Region Laterality Modality Spine, C-spine Computed Tomogra phy 12/18/2024 12:4 8 PM EDT Narrative 12/18/2024 4:01 PM EDT [place] [address] CT Scan Report Signed Patient: Chelsi Connors MR#: [id number] : 1965 Acct:[id number] Age/Sex: 59 / F ADM Date: 12/18/24 Loc: HO.ED Attending Dr: Ordering Physician: Isaiah Young MD Date of Service: 12/18/24 Procedure(s): CT cervical spine wo IV con Accession Number(s): [id number] cc: Chelsi Kauffman MD; Isaiah Young MD Report Number: [id number]: Total DLP = 0.00 mGy-cm Reason for Exam: trauma EXAMINATION: CT CERVICAL SPINE WITHOUT CONTRAST CLINICAL INFORMATION: Injury. COMPARISON: None available. TECHNIQUE: Contiguous axial images through the cervical spine using 3 mm collimation with bone and soft tissue algorithm. Sagittal and coronal reformatted images acquired. DLP: 517.[address] examination was performed using dose optimization techniques as appropriate, variously including the following: *Automated exposure control *Adjustment of mA and/or kV according to patient size (this includes techniques or standardized protocols for targeted exams where dose is matched to indication/reason for exam; i.e. extremities or head) *Use of iterative reconstruction technique FINDINGS: Craniocervical junction is intact with normal alignment between the occipital condyles and lateral masses of C1. .Anterior marginal osteophyte formation and to a lesser extent posterior marginal osteophyte formation at C3-4, C4-5, C5-6 and C6-7 levels. Decreased intervertebral disc height C5-6 and C6-7. Reverse curvature apex at C5. No gross malalignment between the vertebral bodies or the facet joints. C1 is intact. C2 is intact. C3 is intact. C4 is intact. C5 is intact. C6 is intact. C7 is intact. Metallic beam hardening artifact secondary to metallic color at C4 level. No gross prevertebral compartment hematoma. Punctate calcification left parotid gland. Tympanic cavities and mastoid cells are aerated. Calcified plaques in the cavernous segments both ICAs. Extra-axial calcification in the periphery of the right posterior cranial fossa. . CT/CT cervical spine wo IV con IMPRESSION: Multilevel cervical spondylosis C3 C7 without acute fracture or trauma-related listhesis. Fleischner guidelines were followed. Electronically signed by: Frantz Saenz MD 12/18/2024 03:59 PM EDT Dictated By: Frantz Aden MD Signed By: <Electronically signed by Frantz Rayo MD in OV> 12/18/24 1559 DD/ 1248 TD/TT: 12/18/24 1328 Radial Router Operator: Procedure Note Donotuseinterpreter, Image - 12/18/[address] [place] [address] [address] Scan Report Signed Patient: Chelsi Connors [facility]#: [id number] : 1965Acct:[id number] Age/Sex: 59 / FADM Date: 12/18/24 Loc: HO.ED Attending Dr: Ordering Physician: Isaiah Young MD Date of Service: 12/18/24 Procedure(s): CT cervical spine wo IV con Accession Number(s): [id number] cc: Chelsi Kauffman MD; Isaiah Young MD Report Number: [id number]: Total DLP = 0.00 mGy-cm Reason for Exam: trauma EXAMINATION: CT CERVICAL SPINE WITHOUT CONTRAST CLINICAL INFORMATION: Injury. COMPARISON: None available. TECHNIQUE: Contiguous axial images through the cervical spine using 3 mm collimation with bone and soft tissue algorithm. Sagittal and coronal reformatted images acquired. DLP: 517.[address] examination was performed using dose optimization techniques as appropriate, variously including the following: *Automated exposure control *Adjustment of mA and/or kV according to patient size (this includes techniques or standardized protocols for targeted exams where dose is matched to indication/reason for exam; i.e. extremities or head) *Use of iterative reconstruction technique FINDINGS: Craniocervical junction is intact with normal alignment between the occipital condyles and lateral masses of C1. .Anterior marginal osteophyte formation and to a lesser extent posterior marginal osteophyte formation at C3-4, C4-5, C5-6 and C6-7 levels. Decreased intervertebral disc height C5-6 and C6-7. Reverse curvature apex at C5. No gross malalignment between the vertebral bodies or the facet joints. C1 is intact. C2 is intact. C3 is intact. C4 is intact. C5 is intact. C6 is intact. C7 is intact. Metallic beam hardening artifact secondary to metallic color at C4 level. No gross prevertebral compartment hematoma. Punctate calcification left parotid gland. Tympanic cavities and mastoid cells are aerated. Calcified plaques in the cavernous segments both ICAs. Extra-axial calcification in the periphery of the right posterior cranial fossa. . CT/CT cervical spine wo IV con IMPRESSION: Multilevel cervical spondylosis C3 C7 without acute fracture or trauma-related listhesis. Fleischner guidelines were followed. Electronically signed by: Frantz Saenz MD 12/18/2024 03:59 PM EDT Dictated By: Frantz Aden MD Signed By: <Electronically signed by Frantz Rayo MDin OV> 12/18/24 1559 DD/ 1248 TD/TT: 12/18/24 1328 Radial Router Operator: [facility] External Provider IMG CT PROCEDURES Final Result * CT Chest w/o Contrast (12/18/2024 12:48 PM EDT) Anatomical Region Laterality Modality Body, Chest Computed Tomogra phy 12/18/2024 12:4 8 PM EDT Narrative 12/18/2024 4:14 PM EDT [address] [address] [address] Scan Report Signed Patient: Chelsi Connors MR#: [id number] : 1965 Acct:[id number] Age/Sex: 59 / F ADM Date: 12/18/24 Loc: HO.ED Attending Dr: Ordering Physician: Isaiah Young MD Date of Service: 12/18/24 Procedure(s): CT chest wo IV con Accession Number(s): [id number] cc: Chelsi Kauffman MD; Isaiah Young MD Report Number: [id number]: Total DLP = 0.00 mGy-cm Reason for Exam: trauma EXAMINATION: CT chest, CT abdomen and pelvis without contrast. TECHNIQUE: Trauma. COMPARISON: CT chest 11/17/2022 TECHNIQUE: 5 mm thin axial and reformatted 3 mm thin sagittal and coronal images of chest, abdomen and pelvis were obtained. DLP 1500 mGy/cm. This CT examination was performed using dose optimization techniques as appropriate, variously including the following: *Automated exposure control *Adjustment of mA and/or kV according to patient size (this includes techniques or standardized protocols for targeted exams where dose is matched to indication/reason for exam; i.e. extremities or head) *Use of iterative reconstruction technique. FINDINGS: CHEST: Lungs: The lungs are well-expanded and clear acute pneumonic process. There is no pulmonary nodule, mass or contusion. Minimal left basilar dependent atelectasis or pleural thickening. Mediastinum: Central trachea and the bronchi are widely patent. Thyroid lobes are not included in the syuik-gd-nizp. The heart size and the great vessels are normal caliber. No abnormal size mediastinal hilar lymph nodes seen. No pericardial effusion. Pleura: There is no pleural effusion, thickening or pneumothorax. Axilla: The bilateral axillary cyst small shotty lymph nodes which are benign. The chest wall is unremarkable. Osseous structures: There is no visible fracture. Mild straightening of thoracic kyphosis with mild ventral spondylosis mid and lower dorsal spine is noted. ABDOMEN AND PELVIS: Liver, ducts and gallbladder the liver is normal size, shape with mild attenuation. No focal lesion or intrahepatic ductal dilatation. Surgical galen are seen in the cul-de-sac bladder fossa likely from previous removal. Spleen: Unremarkable. Pancreas: Unremarkable. Adrenal glands: Unremarkable. Kidneys and ureter: Both kidneys are normal size, shape with cortical thickness. No radiopaque renal calculi or hydronephrosis. Retroperitoneum: The abdominal aorta is normal caliber. No retroperitoneal lymph nodes or mass seen. GI tract: The stomach is nondilated. The small bowel loops are normal caliber. Scattered stool is seen in the colon. No free air or free fluid. Appendix is seen. Abdominal wall: Small lumbrical hernia containing fat. Pelvis: The uterus is anteverted. The bladder is mildly distended. No adnexal mass or free fluid seen. No abnormal pelvic lymph nodes. Osseous structures: There is exaggerated kyphosis of the thoracal lumbar junction/lower thoracic spine. Grade 1 anterolisthesis L5 over S1 is noted. Moderate bilateral L5-S1 and L4-5 facet joint arthropathy and hypertrophy is noted. CT/CT chest wo IV con IMPRESSION: No acute fracture visualized chest or abdomen. DJD. Exaggerated thoracolumbar spine kyphosis. There is no acute process seen in the chest, abdomen or pelvis. The gallbladder is out. He Electronically signed by: Marvin Duong MD 12/18/2024 04:11 PM EDT Dictated By: Marvin Duong MD Signed By: <Electronically signed by Marvin Duong MD in OV> 12/18/24 1611 DD/ 1248 TD/TT: 12/18/24 1328 Radial Router Operator: NICO Procedure Note Donotuseinterpreter, Image - 12/18/[address] [address] [address] Scan Report Signed Patient: Chelsi Connors [facility]#: [id number] : 1965Acct:[id number] Age/Sex: 59 / FADM Date: 12/18/24 Loc: HO.ED Attending Dr: Ordering Physician: Isaiah Young MD Date of Service: 12/18/24 Procedure(s): CT chest wo IV con Accession Number(s): [id number] cc: Chelsi Kauffman MD; Isaiah Young MD Report Number: [id number]: Total DLP = 0.00 mGy-cm Reason for Exam: trauma EXAMINATION: CT chest, CT abdomen and pelvis without contrast. TECHNIQUE: Trauma. COMPARISON: CT chest 11/17/2022 TECHNIQUE: 5 mm thin axial and reformatted 3 mm thin sagittal and coronal images of chest, abdomen and pelvis were obtained. DLP 1500 mGy/cm. This CT examination was performed using dose optimization techniques as appropriate, variously including the following: *Automated exposure control *Adjustment of mA and/or kV according to patient size (this includes techniques or standardized protocols for targeted exams where dose is matched to indication/reason for exam; i.e. extremities or head) *Use of iterative reconstruction technique. FINDINGS: CHEST: Lungs: The lungs are well-expanded and clear acute pneumonic process. There is no pulmonary nodule, mass or contusion. Minimal left basilar dependent atelectasis or pleural thickening. Mediastinum: Central trachea and the bronchi are widely patent. Thyroid lobes are not included in the uzjme-cl-yiua. The heart size and the great vessels are normal caliber. No abnormal size mediastinal hilar lymph nodes seen. No pericardial effusion. Pleura: There is no pleural effusion, thickening or pneumothorax. Axilla: The bilateral axillary cyst small shotty lymph nodes which are benign. The chest wall is unremarkable. Osseous structures: There is no visible fracture. Mild straightening of thoracic kyphosis with mild ventral spondylosis mid and lower dorsal spine is noted. ABDOMEN AND PELVIS: Liver, ducts and gallbladder the liver is normal size, shape with mild attenuation. No focal lesion or intrahepatic ductal dilatation. Surgical galen are seen in the cul-de-sac bladder fossa likely from previous removal. Spleen: Unremarkable. Pancreas: Unremarkable. Adrenal glands: Unremarkable. Kidneys and ureter: Both kidneys are normal size, shape with cortical thickness. No radiopaque renal calculi or hydronephrosis. Retroperitoneum: The abdominal aorta is normal caliber. No retroperitoneal lymph nodes or mass seen. GI tract: The stomach is nondilated. The small bowel loops are normal caliber. Scattered stool is seen in the colon. No free air or free fluid. Appendix is seen. Abdominal wall: Small lumbrical hernia containing fat. Pelvis: The uterus is anteverted. The bladder is mildly distended. No adnexal mass or free fluid seen. No abnormal pelvic lymph nodes. Osseous structures: There is exaggerated kyphosis of the thoracal lumbar junction/lower thoracic spine. Grade 1 anterolisthesis L5 over S1 is noted. Moderate bilateral L5-S1 and L4-5 facet joint arthropathy and hypertrophy is noted. CT/CT chest wo IV con IMPRESSION: No acute fracture visualized chest or abdomen. DJD. Exaggerated thoracolumbar spine kyphosis. There is no acute process seen in the chest, abdomen or pelvis. The gallbladder is out. He Electronically signed by: Marvin Duong MD 12/18/2024 04:11 PM EDT Dictated By: Marvin Duong MD Signed By: <Electronically signed by Marvin Duong MD in OV> 12/18/24 1611 DD/ 1248 TD/TT: 12/18/24 1328 Radial Router Operator: NICO [facility] External Provider IMG CT PROCEDURES Final Result * CT Head w/o Contrast (12/18/2024 12:48 PM EDT) Anatomical Region Laterality Modality Head, Neck Computed Tomogra phy 12/18/2024 12:4 8 PM EDT Narrative 12/18/2024 4:04 PM EDT [place] [address] CT Scan Report Signed Patient: Chelsi Connors MR#: [id number] : 1965 Acct:[id number] Age/Sex: 59 / F ADM Date: 12/18/24 Loc: HO.ED Attending Dr: Ordering Physician: Isaiah Young MD Date of Service: 12/18/24 Procedure(s): CT head/brain wo IV con Accession Number(s): [id number] cc: Chelsi Kauffman MD; Isaiah Young MD Report Number: [id number]: Total DLP = 0.00 mGy-cm Reason for Exam: trauma EXAMINATION: CT HEAD WITHOUT CONTRAST CLINICAL INFORMATION: trauma COMPARISON: None available. TECHNIQUE: Contiguous axial imaging was performed from the skull base to vertex without intravenous administration of contrast. This CT examination was performed using dose optimization techniques as appropriate, variously including the following: *Automated exposure control *Adjustment of mA and/or kV according to patient size (this includes techniques or standardized protocols for targeted exams where dose is matched to indication/reason for exam; i.e. extremities or head) *Use of iterative reconstruction technique DLP: 649.41 mGy-cm FINDINGS: No acute cortical disruption within the bony calvarium or the skull base. No acute intracranial hemorrhage, mass effect, midline shift, hydrocephalus or herniation. Amaya-white matter differentiation is normal. Multifocal patchy and confluent deep periventricular hypodensities involving centrum semiovale and prominence of the intra-axial CSF spaces cerebral sulci and ventricles. 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 No gross masses. Posterior cranial fossa contents demonstrated no gross masses or mass effect hemorrhage. Position of the cerebellar tonsils. Polypoid mucosal thickening, left maxillary sinus. No air-fluid levels in the paranasal sinuses. Tympanic cavities and mastoid cells are aerated. 7 mm extra-axial calcification left middle cranial fossa. No gross hematoma, intraconal or extraconal compartments of the orbits. Calcified plaques in the cavernous supracavernous segments both ICAs.. CT/CT head/brain wo IV con IMPRESSION: No acute fracture, bony calvarium. No acute intracranial hemorrhage. Small vessel occlusive disease. Global cerebral atrophy. Electronically signed by: Frantz Saenz MD 12/18/2024 04:02 PM EDT Dictated By: Frantz Aden MD Signed By: <Electronically signed by Frantz Rayo MD in OV> 12/18/24 1602 DD/ 1248 TD/TT: 12/18/24 1328 Radial Router Operator: Procedure Note Donotuseinterpreter, Image - 12/18/[address] [address] [address] Scan Report Signed Patient: Chelsi Connors [facility]#: [id number] : 1965Acct:[id number] Age/Sex: 59 / FADM Date: 12/18/24 Loc: HO.ED Attending Dr: Ordering Physician: Isaiah Young MD Date of Service: 12/18/24 Procedure(s): CT head/brain wo IV con Accession Number(s): [id number] cc: Chelsi Kauffman MD; Isaiah Young MD Report Number: [id number]: Total DLP = 0.00 mGy-cm Reason for Exam: trauma EXAMINATION: CT HEAD WITHOUT CONTRAST CLINICAL INFORMATION: trauma COMPARISON: None available. TECHNIQUE: Contiguous axial imaging was performed from the skull base to vertex without intravenous administration of contrast. This CT examination was performed using dose optimization techniques as appropriate, variously including the following: *Automated exposure control *Adjustment of mA and/or kV according to patient size (this includes techniques or standardized protocols for targeted exams where dose is matched to indication/reason for exam; i.e. extremities or head) *Use of iterative reconstruction technique DLP: 649.41 mGy-cm FINDINGS: No acute cortical disruption within the bony calvarium or the skull base. No acute intracranial hemorrhage, mass effect, midline shift, hydrocephalus or herniation. Amaya-white matter differentiation is normal. Multifocal patchy and confluent deep periventricular hypodensities involving centrum semiovale and prominence of the intra-axial CSF spaces cerebral sulci and ventricles. 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 No gross masses. Posterior cranial fossa contents demonstrated no gross masses or mass effect hemorrhage. Position of the cerebellar tonsils. Polypoid mucosal thickening, left maxillary sinus. No air-fluid levels in the paranasal sinuses. Tympanic cavities and mastoid cells are aerated. 7 mm extra-axial calcification left middle cranial fossa. No gross hematoma, intraconal or extraconal compartments of the orbits. Calcified plaques in the cavernous supracavernous segments both ICAs.. CT/CT head/brain wo IV con IMPRESSION: No acute fracture, bony calvarium. No acute intracranial hemorrhage. Small vessel occlusive disease. Global cerebral atrophy. Electronically signed by: Frantz Saenz MD 12/18/2024 04:02 PM EDT RP Dictated By: Frantz Aden MD Signed By: <Electronically signed by Frantz Rayo MDin OV> 12/18/24 1602 DD/ 1248 TD/TT: 12/18/24 1328 Radial Router Operator: [facility] External Provider IMG CT PROCEDURES Final Result * CT Abdomen Pelvis w/o Contrast (12/18/2024 12:48 PM EDT) Anatomical Region Laterality Modality Body, Pelvis, Abdomen Computed T omography 12/18/2024 12:4 8 PM EDT Narrative 12/18/2024 4:14 PM EDT [place] [address] CT Scan Report Signed Patient: Chelsi Connors MR#: [id number] : 1965 Acct:[id number] Age/Sex: 59 / F ADM Date: 12/18/24 Loc: HO.ED Attending Dr: Ordering Physician: Isaiah Young MD Date of Service: 12/18/24 Procedure(s): CT abdomen pelvis wo IV con Accession Number(s): [id number] cc: Chelsi Kauffman MD; Isaiah Young MD Report Number: [id number]: Total DLP = 2721.00 mGy-cm Reason for Exam: trauma EXAMINATION: CT chest, CT abdomen and pelvis without contrast. TECHNIQUE: Trauma. COMPARISON: CT chest 11/17/2022 TECHNIQUE: 5 mm thin axial and reformatted 3 mm thin sagittal and coronal images of chest, abdomen and pelvis were obtained. DLP 1500 mGy/cm. This CT examination was performed using dose optimization techniques as appropriate, variously including the following: *Automated exposure control *Adjustment of mA and/or kV according to patient size (this includes techniques or standardized protocols for targeted exams where dose is matched to indication/reason for exam; i.e. extremities or head) *Use of iterative reconstruction technique. FINDINGS: CHEST: Lungs: The lungs are well-expanded and clear acute pneumonic process. There is no pulmonary nodule, mass or contusion. Minimal left basilar dependent atelectasis or pleural thickening. Mediastinum: Central trachea and the bronchi are widely patent. Thyroid lobes are not included in the gvmck-tr-fpme. The heart size and the great vessels are normal caliber. No abnormal size mediastinal hilar lymph nodes seen. No pericardial effusion. Pleura: There is no pleural effusion, thickening or pneumothorax. Axilla: The bilateral axillary cyst small shotty lymph nodes which are benign. The chest wall is unremarkable. Osseous structures: There is no visible fracture. Mild straightening of thoracic kyphosis with mild ventral spondylosis mid and lower dorsal spine is noted. ABDOMEN AND PELVIS: Liver, ducts and gallbladder the liver is normal size, shape with mild attenuation. No focal lesion or intrahepatic ductal dilatation. Surgical galen are seen in the cul-de-sac bladder fossa likely from previous removal. Spleen: Unremarkable. Pancreas: Unremarkable. Adrenal glands: Unremarkable. Kidneys and ureter: Both kidneys are normal size, shape with cortical thickness. No radiopaque renal calculi or hydronephrosis. Retroperitoneum: The abdominal aorta is normal caliber. No retroperitoneal lymph nodes or mass seen. GI tract: The stomach is nondilated. The small bowel loops are normal caliber. Scattered stool is seen in the colon. No free air or free fluid. Appendix is seen. Abdominal wall: Small lumbrical hernia containing fat. Pelvis: The uterus is anteverted. The bladder is mildly distended. No adnexal mass or free fluid seen. No abnormal pelvic lymph nodes. Osseous structures: There is exaggerated kyphosis of the thoracal lumbar junction/lower thoracic spine. Grade 1 anterolisthesis L5 over S1 is noted. Moderate bilateral L5-S1 and L4-5 facet joint arthropathy and hypertrophy is noted. CT/CT abdomen pelvis wo IV con IMPRESSION: No acute fracture visualized chest or abdomen. DJD. Exaggerated thoracolumbar spine kyphosis. There is no acute process seen in the chest, abdomen or pelvis. The gallbladder is out. He Electronically signed by: Marvin Duong MD 12/18/2024 04:11 PM EDT Dictated By: Marvin Duong MD Signed By: <Electronically signed by Marvin Duong MD in OV> 12/18/24 1611 DD/ 1248 TD/TT: 12/18/24 1328 Radial Router Operator: NICO Procedure Note Donotuseinterpreter, Image - 12/18/[address] [address] [address] Scan Report Signed Patient: Chelsi Connors DMR#: [id number] : 1965Acct:[id number] Age/Sex: 59 / FADM Date: 12/18/24 Loc: HO.ED Attending Dr: Ordering Physician: Isaiah Young MD Date of Service: 12/18/24 Procedure(s): CT abdomen pelvis wo IV con Accession Number(s): [id number] cc: Chelsi Kauffman MD; Isaiah Young MD Report Number: [id number]: Total DLP = 2721.00 mGy-cm Reason for Exam: trauma EXAMINATION: CT chest, CT abdomen and pelvis without contrast. TECHNIQUE: Trauma. COMPARISON: CT chest 11/17/2022 TECHNIQUE: 5 mm thin axial and reformatted 3 mm thin sagittal and coronal images of chest, abdomen and pelvis were obtained. DLP 1500 mGy/cm. This CT examination was performed using dose optimization techniques as appropriate, variously including the following: *Automated exposure control *Adjustment of mA and/or kV according to patient size (this includes techniques or standardized protocols for targeted exams where dose is matched to indication/reason for exam; i.e. extremities or head) *Use of iterative reconstruction technique. FINDINGS: CHEST: Lungs: The lungs are well-expanded and clear acute pneumonic process. There is no pulmonary nodule, mass or contusion. Minimal left basilar dependent atelectasis or pleural thickening. Mediastinum: Central trachea and the bronchi are widely patent. Thyroid lobes are not included in the hpsob-sl-fbft. The heart size and the great vessels are normal caliber. No abnormal size mediastinal hilar lymph nodes seen. No pericardial effusion. Pleura: There is no pleural effusion, thickening or pneumothorax. Axilla: The bilateral axillary cyst small shotty lymph nodes which are benign. The chest wall is unremarkable. Osseous structures: There is no visible fracture. Mild straightening of thoracic kyphosis with mild ventral spondylosis mid and lower dorsal spine is noted. ABDOMEN AND PELVIS: Liver, ducts and gallbladder the liver is normal size, shape with mild attenuation. No focal lesion or intrahepatic ductal dilatation. Surgical galen are seen in the cul-de-sac bladder fossa likely from previous removal. Spleen: Unremarkable. Pancreas: Unremarkable. Adrenal glands: Unremarkable. Kidneys and ureter: Both kidneys are normal size, shape with cortical thickness. No radiopaque renal calculi or hydronephrosis. Retroperitoneum: The abdominal aorta is normal caliber. No retroperitoneal lymph nodes or mass seen. GI tract: The stomach is nondilated. The small bowel loops are normal caliber. Scattered stool is seen in the colon. No free air or free fluid. Appendix is seen. Abdominal wall: Small lumbrical hernia containing fat. Pelvis: The uterus is anteverted. The bladder is mildly distended. No adnexal mass or free fluid seen. No abnormal pelvic lymph nodes. Osseous structures: There is exaggerated kyphosis of the thoracal lumbar junction/lower thoracic spine. Grade 1 anterolisthesis L5 over S1 is noted. Moderate bilateral L5-S1 and L4-5 facet joint arthropathy and hypertrophy is noted. CT/CT abdomen pelvis wo IV con IMPRESSION: No acute fracture visualized chest or abdomen. DJD. Exaggerated thoracolumbar spine kyphosis. There is no acute process seen in the chest, abdomen or pelvis. The gallbladder is out. He Electronically signed by: Marvin Duong MD 12/18/2024 04:11 PM EDT Dictated By: Marvin Duong MD Signed By: <Electronically signed by Marvin Duong MD in OV> 12/18/24 1611 DD/ 1248 TD/TT: 12/18/24 1328 Radial Router Operator: NICO [facility] External Provider IMG CT PROCEDURES Final Result * POCT ANIKA-14 Urine Drug Screen (12/17/2024 [...] / Unknown 12/17/2024 10:29 AM EDT Narrative Shameka Brantley RN - 12/17/2024 10:29 AM EDT UTOX cup Lot#[id number] Exp. 01/14/26 Internal Pass Control us Chelsi Reece MD POINT OF CARE TEST EN TER/EDIT ORDERABLES Final Result * Hemoglobin A1c (07/10/2024 12:13 PM EDT) Hemoglobin A1c 5.7 <6.0 % [facility] Comment:Hemoglobin A1C Refer ence Range Adults: 4.8 - 6.0 % Non diabetic: < 6.0 % Goal: < 7.0 %Additional Action Suggested: > 8.0 %Note: Hemoglobin A1c results are invalid for patients with abnormal amounts of HbF. Blood transfusions may impact the HbA1c concentration in the patient sample. Estimated Average Glucose 117 mg/dL [facility] Comment:eAG = Estimated ave rage glucose which is %A1C expressed asaverage glucose, using the formula of the H4K-UuecbpzPwadjvx Glucose study (ADAG), Diabetes Care, Vol.31,#8,Nov. 2007 Blood Venous blood specimen / Unknown 07/10/2024 12:13 PM EDT 07/10/2024 12:13 PM EDT us Chelsi Reece MD LAB BLOOD ORDERABLES Final Result [facility] [address] [place] [phone] * (ABNORMAL) Lipid Panel, Standard (07/10/2024 12:13 PM EDT) Triglycerides 167(H) <150 mg/dL [facility] Comment:Desirable Triglyceri de: less than 150 mg/dLBorderline High Triglyceride 150-199 mg/dLHigh Triglyceride: 200-499 mg/dLVery High Triglyceride: greater than or equal to 5OO mg/dL Cholesterol 163 <200 mg/dL [facility] Comment:Desirable Cholestero l: less than 200 mg/dLBorderline High Cholesterol: 200-239 mg/dLHigh Cholesterol: greater than 239 mg/dL LDL Cholesterol Calculated 90 <100 mg/dL [facility] Comment:Desirable LDL: less than 100 mg/dLNear Optimal/Above Optimal LDL: 110- 129 mg/dLBorderline High LDL: 130-159 mg/dLHigh LDL: 160-189 mg/dLVery High LDL: greater than or equal to 190 mg/dL HDL Cholesterol 40(L) >40 mg/dL [facility] Comment:Desirable HDL: great er than 40 mg/dL Note: This HDL assay may give artificially low results in patients with liver disease. Blood Venous blood specimen / Unknown 07/10/2024 12:13 PM EDT 07/10/2024 12:13 PM EDT us Chelsi Reece MD LAB BLOOD ORDERABLES Final Result [facility] [address] [place] [phone] * BI Mammogram Screening Tomosynthesis Bilateral (03/01/2024 10:20 AM EST) Anatomical Region Laterality Modality Breast Bilateral Mammography 03/01/2024 10:2 0 AM EST Narrative 03/12/2024 10:52 AM EST [facility] [address] [place] [address] Mammography Report Signed Patient: Chelsi Connors MR#: [id number] : 1965 Acct:[id number] Age/Sex: 58 / F ADM Date: 03/01/24 Loc: HO.MAMMO Attending Dr: Chelsi Reece MD Ordering Physician: Chelsi Kauffman MD Results: 1Negative Date of Service: 03/01/24 Follow Up: 1 Year From Orig inal Mammogram Procedure(s): MM tomosynthesis screening BI Accession Number(s): [id number] cc: Chelsi Kauffman MD; Dc Bourne MD [...] for their next mammogram. Electronically signed by: aTty Mccartney DO 03/12/2024 10:49 AM EST Dictated By: Taty Mccartney DO Signed By: <Electronically signed by Taty Mccartney DO in OV> 03/12/24 1049 DD/ 1020 TD/TT: 03/01/24 1045 Radial Router Operator: Procedure Note Donotuseinterpreter, Image - 03/12/2024 [facility] [address] [place] [address] [place] [address] Mammography Report Signed Patient: Chelsi Connors DMR#: [id number] : 1965Acct:[id number] Age/Sex: 58 / FADM Date: 03/01/24 Loc: HO.MAMMO Attending Dr: Chelsi Reece MD Ordering Physician: Chelsi Kauffman MDResults: 1Negative Date of Service: 03/01/24Follow Up: 1 Year From Orig inal Mammogram Procedure(s): MM tomosynthesis screening BI Accession Number(s): [id number] cc: Chelsi Kauffman MD; Dc Bourne MD [...] 03/12/24 1049 DD/ 1020 TD/TT: 03/01/24 1045 Radial Router Operator: us Chelsi Reece MD IMG BI PROCEDURES Fin al Result * Image-Guided Pap with Age-Based Screening??with CT/NG,??Trichomonas (07/04/2023 3:39 PM EDT) Trichomonas (NAAT) NOT DETECTED NOT DETECTED [facility] Comment:The analytical perfo rmance characteristics of thisassay have been determined by [employer]. Themodifications have not been cleared or approved bythe FDA. This assay has been validated pursuant to theCLIA regulations and is used for clinical purposes.For additional information, please refer tohttp://education.[place]/faq/Trichomonastma(This link is being provided for information/educational purposes only.)THIS TEST WAS PERFORMED AT:[employer] [place] [address]SFQYOHARPER HANEY MD CTNG Ref Lab NOT DETECTED NOT DETECTED [facility] NG Ref Lab NOT DETECTED NOT DETECTED [facility] Pap Vial Vaginal structure / Unknown 07/04/2023 3:39 PM EDT 07/10/2023 8:55 AM EDT Narrative [facility] - 07/11/2023 8:28 PM EDT Collection Date: [id number]: Vagina us Chelsi Reece MD LAB CYTOLOGY ORDERABL ES Final Result [facility] [address] [place] [phone] [phone] * HPV mRNA E6/E7 w/Reflex to HPV Genotypes 16, 18/45 (07/04/2023 3:39 PM EDT) HPV nRNA E6/E7 Not Detected Not Detected [facility] Comment:Methodology: Transcr iption-Mediated AmplificationThis assay detects E6/E7 viral messenger RNA (mRNA) from 14high-risk HPV types (16,18,31,33,35,39,45,51,52,56,58,59,66,68).Cervical sources are required for HPV testing.If a vaginal source from a patient who has had atotal hysterectomy with removal of cervix wassubmitted, please contact the testing laboratoryfor alternative testing options.For additional information, please refer tohttp://education.[place]/faq/ZZH628r2(This link if provided for information/educational purposes only.)THIS TEST WAS PERFORMED AT:[employer] [place] [address]MLZSOHARPER HANEY MD HPV mRNA E6/E7 TNP [facility] HPV 16 RNA TNP [facility] HPV 18/45 RNA TNP [facility] 07/04/2023 3:39 PM EDT 07/05/2023 2:00 PM EDT Chelsi Reece MD LAB CYTOLOGY ORDERABL ES Final Result Performing Organization Address [facility] de Phone Number [facility] [address] [place] [phone] * (ABNORMAL) Hepatitis C Ab (12/21/2022 10:55 AM EDT) Hepatitis C Antibody Reactive( A) Nonreactive [facility] Comment:Presumptive evidence of antibodies to HCV. 12/21/2022 10:5 5 AM EDT 12/21/2022 10:55 AM EDT [facility] External Provider LAB BLO OD ORDERABLES Final Result Performing Organization Address [facility] de [facility] Number [facility] [address] [place] [phone] * HIV Ab/Ag ([facility]) (12/21/2022 10:55 AM EDT) HIV AB/AG Nonreactive Nonreactive [facility] Comment:HIV-1 p24 Ag and/or HIV-1/HIV-2 Ab not detected.A test result that is nonreactive does not exclude thepossibility of exposure to or infection with HIV-1 and/orHIV-2. Nonreactive results in this assay for individualswith prior exposure to HIV-1 and/or HIV-2 may be due toantigen and antibody levels that are below the limit ofdetection of this assay.The [facility] HIV Ag/Ab Combo assay result andsupplemental assay results should be interpreted inconjunction with the patient's clinical presentation,history and other laboratory results. If the results areinconsistent with clinical evidence, additional testing issuggested to confirm the result. 12/21/2022 10:5 5 AM EDT 12/21/2022 10:55 AM EDT Generic External Data Provider LAB BLOOD ORDERAB LES Final Result Performing Organization Address [facility] Co de Phone Number [facility] [address] [place] [address] [phone] * Colonoscopy (08/25/2022) Colonoscopy Normal Normal Griselda Duran - 08/25/2022 Recommended 1 year follow up due to poor prep us Historical Provider HEALTH MAINTENANCE Final Result from Last 3 Months or Most Recently Relevant to Health Maintenance Insurance [facility] < 65 [facility] Care Teams Head Of Visual Merchandising Relationship Specialty Start Date End Date Chelsi Kauffman MD [address] [place] [address] PCP - General Family Medicine 12/20/18
--- OUTSIDE RECORDS SUMMARY | 2025-01-14 14:37 | XMS_ITS | Encounter Summary ---
Author Organization [employer] Address [address] [place] [address] [address] [place] [address] Care Team Providers Care Cleater Name Role Phone Chelsi Kauffman MD Primary Care Provide r Reason for Visit * Reason Comments Med Refill Encounter Details Date Type Department Care Team ([facility] st Contact Info) Description 05/06/2024 Refill [facility] MEDICINE [address] [place] [address] Chelsi Kauffman MD [address] [place] [address] Mild intermittent asthma without complication; Asthma in [...] Description 01/29/2025 11:30 AM EDT Office Visit [facility] OPTOMETRY [address] [place] [address] Rito, Kennedi, OD [address] [place] [address] 02/28/2025 8:00 AM EST Office Visit [facility] ADULT DENTAL [address] [place] [address] Alireza, Nicole [address] [place] [address] 03/18/2025 9:45 AM EST Office Visit [facility] MEDICINE [address] [place] [address] documented as of this encounter Goals Goal [...] documented as of this encounter Care Teams Cleater Relationship Specialty Start Date End Date Chelsi Kauffman MD [address] [place] [phone] PCP - General Family Medicine 12/20/18 documented as of this encounter
--- OUTSIDE RECORDS SUMMARY | 2025-01-14 14:38 | XMS_ITS | Encounter Summary ---
Author Organization [employer] Address [address] [place] [address] Care Team Providers Care Assistant Professor Of English Name Role Phone Chelsi Kauffman MD Primary Care Provide r Reason for Visit * Reason Onset Date Comments Referral 08/12/2024 Encounter Details Date Type Department Care Team ([facility] st Contact Info) Description 08/12/2024 Telephone [facility] MEDICINE [address] [place] [address] Chelsi Kauffman MD [address] [place] [address] Referral Social History Tobacco Use Types Packs/Day [...] referral : DATE: 08/12/2024 TIME: 10:00am Address: [address] [place] [phone] Visits: 1 Facility Name: [facility] Physical Therapy Type of Specialist: physical therapy DX:[id number] Provider : not provided Provider NPI : Facility NPI: [id number] Phone # : [phone] Fax #: [phone] documented in this encounter Plan of Treatment Upcoming Encounters Date Type Department Care Team ([facility] Contact Info) Description 01/29/2025 11:30 AM EDT Office Visit [facility] OPTOMETRY [address] [place] [address] Kennedi Veras, OD [address] [place] [address] 02/28/2025 8:00 AM EST Office Visit [facility] ADULT DENTAL [address] [place] [address] Nicole Lay [address] [place] [address] 03/18/2025 9:45 AM EST Office Visit [facility] MEDICINE [address] [place] [address] documented as of this encounter Goals Goal [...] documented as of this encounter Care Teams Assistant Professor Of English Relationship Specialty Start Date End Date Chelsi Kauffman MD [address] [place] [address] PCP - General Family Medicine 12/20/18 documented as of this encounter
--- NOTE | 2025-01-17 09:13 | HO.ANESPROP2 ---
HPI - Anesthesia Eval Consult details Narrative: 59yo F for Upper Endoscopy and Colonoscopy [facility] Active Problems Active Problems: All Active Problems BMI 40.0-44.9, adult (Acute) Migraine without aura (Acute) Sacroiliac joint dysfunction of both sides (Acute) Lumbar spondylosis (Acute) Pre-op examination (Acute) Environmental allergies (Acute) Urinary urgency (Acute) YOLA (stress urinary incontinence, female) (Acute) Intrinsic sphincter deficiency (ISD) (Acute) Colitis (Acute) Acute diarrhea (Acute) OAB (overactive bladder) (Acute) Hepatitis C antibody positive in blood (Acute) Obese (Acute) GABRIELA (obstructive sleep apnea) (Acute) Asthma (Acute) Erosive esophagitis (Acute) Post-cholecystectomy syndrome (Acute) Hidradenitis suppurativa (Acute) Primary osteoarthritis of right knee (Acute) Rotator cuff impingement syndrome of left shoulder (Acute) Rotator cuff impingement syndrome of right shoulder (Acute) Tubulovillous adenoma of colon (Acute) Irritable bowel syndrome with diarrhea (Acute) Abdominal bloating (Acute) GERD (gastroesophageal reflux disease) (Acute) Carpal tunnel syndrome of right wrist (Acute) Arthritis of carpometacarpal (CMC) joint of left thumb (Acute) Heart palpitations (Acute) Past Medical History 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 Trichomonal infection Screen for STD (sexually transmitted disease) Well woman exam Post covid-19 condition, unspecified TOUSSAINT (dyspnea on exertion) Urge incontinence Overactive bladder Stress incontinence Distal radius fracture, left Fracture of left distal radius Colon cancer screening Abdominal cramping Well woman exam with routine gynecological exam Subcutaneous abscess Cellulitis Urgency incontinence Microscopic hematuria Hx of fracture of wrist Hx of sleep apnea Hx of vertigo COVID GERD (gastroesophageal reflux disease) Pre-diabetes Epigastric pain Abdominal cramping Primary osteoarthritis of knees, bilateral Morbid obesity Osteoarthritis Fibromyalgia Arthritis Hypertension Family History Family History Father Stomach cancer Brother Stomach problems Mother Diabetes Family history of problems with anesthesia: No Surgical History Surgical History History of open reduction and internal fixation (ORIF) procedure Hx of tubal ligation Hx of colonoscopy History of cholecystectomy (~2019) History of Problems with Anesthesia: No Social History Social History Household Members: Family Housing: Apartment Do you presently have visiting nurse or other home services: No Alcohol intake: current Alcohol intake frequency: does not drink Patient Tobacco Use Status: Former Tobacco user Tobacco use type: Cigarette Second Hand Smoke Exposure: No Advance Directives Date on File: 01/28/20 service: No Current occupational status: unemployed Sexual orientation: Straight/Heterosexual Gender identity: Female Meds Allergies Allergy/AdvReac Type Severity Reaction Status Date / Time No Known Allergies (No Known Allergy Verified 12/18/24 09:39 Allergies*) Home Medications ?Medication ?Instructions ?Recorded ?Confirmed ?Last Taken ?Type amlodipine 10 mg tablet (Norvasc) 10 mg PO DAILY 01/23/20 07/10/24 08/25/22 08:30 History citalopram 20 mg tablet (Celexa) 20 mg PO DAILY 01/23/20 07/10/24 01/22/20 08:00 History clonazepam 0.5 mg tablet (Klonopin) 0.5 mg PO BEDTIME 01/23/20 07/10/24 01/21/20 21:00 History duloxetine 60 mg capsule,delayed 60 mg PO DAILY 01/23/20 07/10/24 01/22/20 08:00 History release (Cymbalta) aspirin 81 mg tablet,delayed 81 mg PO DAILY 01/26/22 07/10/24 01/10/25 History release (Adult Low Dose Aspirin) cholecalciferol (vitamin D3) 50 50 mcg PO DAILY 01/26/22 07/10/24 Unknown History mcg (2,000 unit) capsule (Vitamin D3) gabapentin 600 mg tablet 600 mg PO BID 01/26/22 07/10/24 Unknown History (Neurontin) hydralazine 25 mg tablet 25 mg PO BID 01/26/22 07/10/24 Unknown History hydrochlorothiazide 25 mg tablet 25 mg PO DAILY 01/26/22 07/10/24 Unknown History losartan 100 mg tablet (Cozaar) 100 mg PO DAILY 01/26/22 07/10/24 Unknown History meclizine 25 mg tablet (Dramamine 25 mg PO TID PRN Dizziness 01/26/22 07/10/24 Unknown History (meclizine)) melatonin 3 mg tablet 3 - 6 mg PO BEDTIME PRN Insomnia 01/26/22 07/10/24 Unknown History metformin 500 mg tablet 500 mg PO BID 01/26/22 07/10/24 08/24/22 History lancets 33 gauge (TRUEplus Lancets) #100 ea 03/31/22 07/10/24 Unknown History albuterol sulfate 90 mcg/actuation 0 mcg inhalation 09/06/22 07/10/24 Unknown History aerosol inhaler (Ventolin HFA) fexofenadine 180 mg tablet 180 mg PO DAILY PRN allergies 09/06/22 07/10/24 Unknown History (Allergy Relief (fexofenadine)) blood-glucose meter (FreeStyle #1 ea 11/10/22 07/10/24 Unknown History [place] Lite kit) fluticasone 500 mcg-salmeterol 50 1 ea inhalation BID 12/01/22 07/10/24 Unknown History mcg/dose blistr powdr for inhalation oxycodone 5 mg capsule 5 mg PO BID PRN Pain 08/18/23 07/10/24 Unknown History amitriptyline 50 mg tablet 50 mg PO BEDTIME 07/17/24 Unknown History calcium 500 mg (as tab PO DAILY 07/17/24 Unknown History carbonate)-vitamin D3 5 mcg (200 unit) tablet (Oyster Shell Calcium-Vitamin D3) carvedilol 6.25 mg tablet 6.25 mg PO BID 07/17/24 Unknown History tirzepatide (weight loss) 10 10 mg subcut QWEEK 07/17/24 01/10/25 History mg/0.5 mL subcutaneous pen injector (Zepbound) Assessment and Plan Assessment Anesthesia Assessment: Chart Reviewed Final Anesthetic Review Family History of Problems with Anesthesia: No History of Problems with Anesthesia: No
[2025-01-21 05:32] VITALS: BMI 40.8
--- NOTE | 2025-01-21 10:39 | MHC.SHP ---
Pre-Procedural Eval Section A - 24 Hr Update-Section A only Date of Service: 01/21/25 Section B - Complete if H&P > 30 days Chief Complaint: gerd,benign neoplasm of colon Details of Present Illness: TOUSSAINT (dyspnea on exertion) Urge incontinence Overactive bladder Stress incontinence Distal radius fracture, left Fracture of left distal radius Colon cancer screening Abdominal cramping Well woman exam with routine gynecological exam Subcutaneous abscess Cellulitis Urgency incontinence Microscopic hematuria Hx of fracture of wrist Hx of sleep apnea Hx of vertigo COVID GERD (gastroesophageal reflux disease) Pre-diabetes Epigastric pain Abdominal cramping Primary osteoarthritis of knees, bilateral Morbid obesity Osteoarthritis Fibromyalgia Arthritis Hypertension Surgical History History of open reduction and internal fixation (ORIF) procedure Hx of tubal ligation Hx of colonoscopy History of cholecystectomy (~2018) Present Medications: see Short Stay Collaborative assessment Allergies: Allergies Allergy/AdvReac Type Severity Reaction Status Date / Time No Known Allergies (No Known Allergy Verified 12/18/24 09:39 Allergies*) Review of Systems Review of Systems Comment: Ten point ROS negative Exam Exam Comment: Gen appear: No acute distress HEENT: no icterus Chest: No overt resp distress Abd: soft, nontender, nondistended Psych: Stable affect, answering questions appropriately Neuro: A/Ox3 noted to move all extremities spontaneously Ext: no peripheral edema Plan Diagnosis/Plan: Unchanged I have reviewed the history and physical and performed a pertinent physical examination on my patient. No changes have occurred unless specified. Time Spent With Patient Time: Total time managing care of this patient today ____ minutes.
[2025-01-21 10:53] VITALS: BP 122/69; PULSE 89; RESP 18; TEMP 36.4; O2SAT 96; BMI 39.7
[2025-01-21] MEDS: Lactated Ringers 1,000 ML 100 ML IVCONT (11:12)
[2025-01-21 11:15] LABS: Glucose, Whole Blood 106 mg/dL (60-115)
--- NOTE | 2025-01-21 13:04 | P.OPN-COLO_ITS ---
Colonoscopy Operative Note Operative Note Date of Service: 01/21/25 Narrative: Procedure: Upper endoscopy and colonoscopy Indication: GERD, fam hx of gastric ca, Hx of polyps Endoscopist: Domi Miller MD Anesthesia Provider: Berry Ariza CRNA Anesthesia type: MAC Instrument: [id number] and [id number] EGD Procedure:?? The procedure, indications, preparation and potential complications were reviewed with the patient, who indicated understanding and gave written informed consent to proceed. A utility worker production assisted with the encounter. The endoscope was introduced through the mouth, and advanced to the 2nd part of the duodenum. The mucosa was carefully examined on slow withdrawal of the endoscope. The patient tolerated the procedure well. There were no immediate complications.? EGD Findings:? * Esophagus:? Normal esophageal mucosa was noted. The Z-line was at 38 cm and irregular up to 36 cm. Cold forceps biopsies were taken from GE junction to rule out Nguyen's esophagus. A Tissue Cypher will also be sent if metaplasia present. * Stomach:? Normal gastric mucosa. Retroflexion was performed in the cardia that showed Hill grade III hiatal hernia. Cold forceps mapping biopsies were taken from the stomach as per Juliana protocol to screen for gastric ca due to exten sive family hx. * Duodenum:? Normal duodenal mucosa. Colonoscopy Procedure:? The patient was then turned for the colonoscopy. A digital rectal exam was performed which was abnormal for external hemorrhoids.? A distal attachment cap was affixed to the tip of the scope and the colonoscope was then inserted through the anus and advanced through the colon and advanced to the cecum at 70 cm and terminal ileum.? Appendiceal orifice and ileocecal valve were identified. Mucosa was carefully examined under high definition white light as the instrument was slowly withdrawn in a retrograde panoramic fashion. Retroflexion was performed in ascending colon and rectum. The procedure was not difficult. The quality of the prep was BBPS: 3+2+3 = adequate Withdrawal time 11 minutes Limitations: No limitations Findings: Mucosa: Normal colon and terminal ileum mucosa. Protruding lesions: * 1 sessile polyp of size 10 mm in ascending colon. Cold snare polypectomy was performed. The polyp was completely removed and retrieved. * Medium internal hemorrhoids without stigmata of recent bleeding. Excavated lesions: * Mild diverticulosis of sigmoid colon. Impression: 1. Irregular Z line (biopsy, tissue cypher) 2. Hiatal hernia 3. Normal stomach (biopsy) 4. Normal duodenum 5. Normal colon and terminal ileum mucosa 6. One polyp removed 7. Diverticulosis 8. Internal and external hemorrhoids Recommendations:?? * Follow-up path results * Avoid NSAIDs * Cont PPI * Repeat EGD in 5 years contingent on results * Repeat colonoscopy in 3 years if polyp is an adenoma
[2025-01-21 13:05] VITALS: BP 89/54; PULSE 76; RESP 12; TEMP 36.6; O2SAT 98
[2025-01-21 13:20] VITALS: BP 105/68; PULSE 85; RESP 16; TEMP 36.3; O2SAT 97
== END 2025-01-21 13:51 | disposition home or self-care (01) ==
PROVIDERS: PCP Internal Medicine; Visit Provider Internal Medicine
PROC: (CPT 45385; principal; 2025-01-21 13:50)
DX: Z12.11 Encounter for screening for malignant neoplasm of colon (principal); Z86.0101 Personal history of adenomatous and serrated colon polyps; D12.2 Benign neoplasm of ascending colon; K57.30 Diverticulosis of large intestine without perforation or abscess without bleeding; K64.8 Other hemorrhoids; K64.4 Residual hemorrhoidal skin tags; K21.9 Gastro-esophageal reflux disease without esophagitis; Z80.0 Family history of malignant neoplasm of digestive organs; K44.9 Diaphragmatic hernia without obstruction or gangrene; R06.09 Other forms of dyspnea; I10 Essential (primary) hypertension; R73.03 Prediabetes; M79.7 Fibromyalgia; N39.46 Mixed incontinence; K91.5 Postcholecystectomy syndrome; E66.01 Morbid (severe) obesity due to excess calories; Z68.41 Body mass index [BMI] 40.0-44.9, adult; Z79.85 Long-term (current) use of injectable non-insulin antidiabetic drugs; Z79.899 Other long term (current) drug therapy; Z98.890 Other specified postprocedural states; Z87.891 Personal history of nicotine dependence
CPT/HCPCS: 45385; 43239; 82947; 88305; 88313; 88341; 88342; J2003; J2405; J2704; J3010

== ENCOUNTER → 2025-01-21 10:41 | Outpatient (BNV) | payer OTHER, SELFPAY | PROVIDERS: PCP Internal Medicine; Visit Provider Internal Medicine | DX: Z12.11 Encounter for screening for malignant neoplasm of colon (principal); D12.2 Benign neoplasm of ascending colon; K64.8 Other hemorrhoids; K57.30 Diverticulosis of large intestine without perforation or abscess without bleeding; K21.9 Gastro-esophageal reflux disease without esophagitis; K22.89 Other specified disease of esophagus | CPT/HCPCS: 43239; 45385 ==

== ENCOUNTER 2025-02-07 08:58 | Outpatient (AMB) | payer OTHER, SELFPAY ==
--- NOTE | 2025-02-07 09:11 | A.OFFVIS_ITS ---
Vital Signs 02/07/25 09:12 Height 5 ft 6 in Weight 246 lb BMI 39.7 BP 128/82 Blood Pressure Location Lt brachial Position Sitting Pulse 87 Pulse Source Pulse Oximeter Pulse Oximetry (%) 95 Oxygen Delivery Method Room Air Intake Visit Reasons: Shortness of breath Historiography Teacher Required: Yes Historiography Teacher Services: Historiography Teacher Present Historiography Teacher Name: [id number] Allergies No Known Allergies (No Known Allergies*) Allergy (Verified 02/07/25 09:16) HPI HPI Shortness of breath: Details: 59-year-old lady, remote, greater than 30 years ago, 10 pack-year smoker, with underlying obesity and moderate obstructive sleep apnea. Patient states that her asthma symptoms are well controlled on current regimen of Advair and albuterol MDI. She continues to use her CPAP machine with reasonable control of his symptoms. She does complain of mild exacerbation symptomatic with nonproductive cough and mild wheezing. She also complain of worsening lower extremity edema and some orthopnea. 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 Trichomonal infection Screen for STD (sexually transmitted disease) Well woman exam Post covid-19 condition, unspecified TOUSSAINT (dyspnea on exertion) Urge incontinence Overactive bladder Stress incontinence Distal radius fracture, left Fracture of left distal radius Colon cancer screening Abdominal cramping Well woman exam with routine gynecological exam Subcutaneous abscess Cellulitis Urgency incontinence Microscopic hematuria Hx of fracture of wrist Hx of sleep apnea Hx of vertigo COVID GERD (gastroesophageal reflux disease) Pre-diabetes Epigastric pain Abdominal cramping Primary osteoarthritis of knees, bilateral Morbid obesity Osteoarthritis Fibromyalgia Arthritis Hypertension Surgical History History of open reduction and internal fixation (ORIF) procedure Hx of tubal ligation Hx of colonoscopy History of cholecystectomy (~2019) Family History Father Stomach cancer Brother Stomach problems Mother Diabetes Social History Household Members: Family Housing: Apartment Do you presently have visiting nurse or other home services: No Alcohol intake: current Alcohol intake frequency: does not drink Patient Tobacco Use Status: Former Tobacco user Tobacco use type: Cigarette Second Hand Smoke Exposure: No Advance Directives Date on File: 01/28/20 service: No Current occupational status: unemployed Sexual orientation: Straight/Heterosexual Gender identity: Female Review of Systems Const Denies daytime sleepiness, Denies excessive sweating, Denies fatigue, Denies fever(s), Denies lethargy, Denies malaise, Denies night sweats, Denies snoring and Denies weight loss Eyes Denies blurry vision and Denies itchy eyes ENT Denies nasal congestion, Denies post nasal drip, Denies sinus pain, Denies sinus pressure and Denies other ( Thrush) Card Denies chest pain, Reports pedal edema, Denies dyspnea, Reports dyspnea on exertion, Reports orthopnea and Denies paroxysmal nocturnal dyspnea Resp Reports cough, Denies hemoptysis, Denies excessive phlegm production, Denies dyspnea, Reports dyspnea on exertion, Denies snoring and Reports wheezing GI Denies abdominal pain and Denies heartburn Musc Denies myalgias, Denies arthralgias and Denies joint swelling Skin/Breast Denies rash Neuro Denies memory loss and Denies seizure-like activity Psych Denies abnormal sleep pattern, Denies anxiety and Denies memory loss Endo Denies excessive sweating, Denies fatigue and Denies heat intolerance Segun/Lymph Denies easy bruising Aller/Immun Denies itchy eyes, Denies seasonal rhinorrhea and Reports wheezing Physical Exam Vital Signs: Last Vital Signs Pulse 87 02/07/25 09:12 BP 128/82 02/07/25 09:12 Pulse Ox 95 02/07/25 09:12 Oxygen Delivery Method Room Air 02/07/25 09:12 BMI result Body Mass Index 39.7 Const General: no acute distress and alert Nutritional Appearance: obese Orientation/consciousness: Other orientation findings ( oriented) HEENT Head: Yes atraumatic Eyes General: appearance normal, both eyes and all related structures Sclerae: sclerae normal EOM: EOMs intact bilaterally Neck Neck: Yes supple Lymphatic: no lymphadenopathy noted Resp Effort & Inspection: normal respiratory effort and no use of accessory muscles Auscultation: wheezes (Mild expiratory bilateral) Cardio Rate: regular rate Rhythm: regular rhythm Heart sounds: no gallops, no murmurs and no rubs Skin General skin exam: other ( warm) Extrem General: No clubbing, No cyanosis and Yes edema (Trace bilateral) Assessment & Plan Assessment & Plan (1) Asthma: Code(s): J45.909 - Unspecified asthma, uncomplicated Category: Medical Plan: Reasonable baseline control on Advair and albuterol MDI. Continue current regimen. Now with mild exacerbation, will treat with brief prednisone course. (2) GABRIELA (obstructive sleep apnea): Comment: . Code(s): G47.33 - Obstructive sleep apnea (adult) (pediatric) Category: Medical Plan: Well controlled on current CPAP therapy. Continue CPAP therapy. (3) Environmental allergies: Code(s): Z91.09 - Other allergy status, other than to drugs and biological substances Category: Medical Plan: Controlled on nasal ipratropium and Mylene. Continue current regimen. (4) Orthopnea: Code(s): R06.01 - Orthopnea Category: Medical Plan: Now with worsening orthopnea lower extremity edema, will switch hydrochlorothiazide to furosemide 20 mg daily. Medications: New furosemide (Lasix) 20 mg PO DAILY 30 tabs 6RF prednisone 40 mg (2 x 20 mg) PO DAILY 10 tabs 0RF Coding Level of Care Code Est Pt Level 4 (44472) Complex EM visit Add On G2211 Diagnoses Asthma J45.909 GABRIELA (obstructive sleep apnea) G47.33 Environmental allergies Z91.09 Orthopnea R06.01
[2025-02-07 09:12] VITALS: BP 128/82; PULSE 87; O2SAT 95; BMI 39.7
== END 2025-02-07 09:30 | disposition home or self-care (01) ==
LOC: HO.HPS 08:59
PROVIDERS: PCP Family Medicine; Visit Provider Internal Medicine Pulmonary Disease
DX: J45.909 Unspecified asthma, uncomplicated (principal); G47.33 Obstructive sleep apnea (adult) (pediatric); Z91.09 Other allergy status, other than to drugs and biological substances; R06.01 Orthopnea
CPT/HCPCS: 99214; G2211

== ENCOUNTER → 2025-02-07 08:58 | Outpatient (BNVA) | payer OTHER, SELFPAY | PROVIDERS: PCP Family Medicine; Visit Provider Internal Medicine Pulmonary Disease | DX: G47.33 Obstructive sleep apnea (adult) (pediatric) (principal); G43.009 Migraine without aura, not intractable, without status migrainosus; S06.0X0D Concussion without loss of consciousness, subsequent encounter; J45.901 Unspecified asthma with (acute) exacerbation; Z91.09 Other allergy status, other than to drugs and biological substances; R06.01 Orthopnea | CPT/HCPCS: 99212 ==

== ENCOUNTER 2025-02-07 10:52 | Outpatient (AMB) | payer OTHER, SELFPAY ==
[2025-02-07 10:54] VITALS: BP 112/82; PULSE 68; O2SAT 96; BMI 40.9
--- NOTE | 2025-02-07 10:54 | A.OFFVIS_ITS ---
Vital Signs 02/07/25 10:54 Height 5 ft 6 in Weight 253 lb 8 oz BMI 40.9 BP 112/82 Blood Pressure Location Rt brachial Position Sitting Pulse 68 Pulse Source Pulse Oximeter Pulse Oximetry (%) 96 Oxygen Delivery Method Room Air Intake Visit Reasons: 6 mo follow up Intake Note: Follow up care - Headache Cash Clerk Required: Yes Cash Clerk Services: Cash Clerk Present Cash Clerk Name: ipad ID [id number] Melissa Simmons Accompanied by: Self / Same As Patient Allergies No Known Allergies (No Known Allergies*) Allergy (Verified 02/07/25 11:04) HPI Comments Details: 59-yr-old female presents for follow-up visit for GABRIELA and migraine. She reports on 12/18/2024, she slipped and fell down approximately 13 stairs. During the falls, she did have positive head strike, but denies LOC. She did have an [facility] eval, head and neck CT were nonacute, however there is evidence for calcified plaques within both ICAs. Since, she has had increased frequency of her typical migraine attacks, cognitive difficulties, and sleep difficulties. She describes the cognitive difficulties as losing her train of thought in her mind going blank in the middle of a conversation. She is now having 1 migraine day a week. She reports she is compliant with vitamin-B complex and scheduled amitriptyline. She states her as-needed Ubrelvy is effective and well tolerated. She had not been using her CPAP recently, and she did not have supplies. However she has recently been able to communicate better with her respiratory supply company, and is hoping to resume you soon. When she is able to use her CPAP, she sleeps better and has more daytime energy. [facility] workup: 12/18/2024, CT head/brain wo IV con No acute fracture, bony calvarium. No acute intracranial hemorrhage. Small vessel occlusive disease. Global cerebral atrophy. 7 mm extra-axial calcification left middle cranial fossa. No gross hematoma, intraconal or extraconal compartments of the orbits. Calcified plaques in the cavernous supracavernous segments both ICAs. 12/18/2024, CT cervical spine wo IV con Multilevel cervical spondylosis C3 C7 without acute fracture or trauma-related listhesis. Calcified plaques in the cavernous segments both ICAs. Extra-axial calcification in the periphery of the right posterior cranial fossa. 12/18/2024, CT chest wo IV con No acute fracture visualized chest or abdomen. DJD. Exaggerated thoracolumbar spine kyphosis. 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 Trichomonal infection Screen for STD (sexually transmitted disease) Well woman exam Post covid-19 condition, unspecified TOUSSAINT (dyspnea on exertion) Urge incontinence Overactive bladder Stress incontinence Distal radius fracture, left Fracture of left distal radius Colon cancer screening Abdominal cramping Well woman exam with routine gynecological exam Subcutaneous abscess Cellulitis Urgency incontinence Microscopic hematuria Hx of fracture of wrist Hx of sleep apnea Hx of vertigo COVID GERD (gastroesophageal reflux disease) Pre-diabetes Epigastric pain Abdominal cramping Primary osteoarthritis of knees, bilateral Morbid obesity Osteoarthritis Fibromyalgia Arthritis Hypertension Surgical History History of open reduction and internal fixation (ORIF) procedure Hx of tubal ligation Hx of colonoscopy History of cholecystectomy (~2019) Family History Father Stomach cancer Brother Stomach problems Mother Diabetes Social History Household Members: Family Housing: Apartment Do you presently have visiting nurse or other home services: No Alcohol intake: current Alcohol intake frequency: does not drink Patient Tobacco Use Status: Former Tobacco user Tobacco use type: Cigarette Second Hand Smoke Exposure: No Advance Directives Date on File: 01/28/20 service: No Current occupational status: unemployed Sexual orientation: Straight/Heterosexual Gender identity: Female Physical Exam Vital Signs: Last Vital Signs Pulse 68 02/07/25 10:54 BP 112/82 02/07/25 10:54 Pulse Ox 96 10/31/25 10:54 Oxygen Delivery Method Room Air 02/07/25 10:54 BMI result Body Mass Index 40.9 Const General: no acute distress Orientation/consciousness: patient oriented x3 Resp Effort & Inspection: able to speak in complete sentences Neuro General: patient oriented x3 Psych Mental Status: mental status grossly normal Speech and movement: Clear speech present Attitude: cooperative Assessment & Plan Assessment & Plan (1) GABRIELA (obstructive sleep apnea): Comment: . Code(s): G47.33 - Obstructive sleep apnea (adult) (pediatric) Category: Medical (2) Migraine without aura: Code(s): G43.009 - Migraine without aura, not intractable, without status migrainosus Category: Medical Qualifiers: Status migrainosus presence: without status migrainosus Intractability: not intractable Qualified Code(s): G43.009 - Migraine without aura, not intractable, without status migrainosus (3) Concussion: Comment: Status post slip and fall down 13 stairs on 12/18/2024, with residual increase typical migraines, cognitive changes, and sleep difficulties. Code(s): S06.0XAA - Concussion with loss of consciousness status unknown, initial encounter Category: Medical Qualifiers: Encounter type: subsequent encounter Loss of consciousness presence/duration: without LOC Qualified Code(s): S06.0X0D - Concussion without loss of consciousness, subsequent encounter Plan Resume APAP 6-16 cmH2O nightly > 4 hrs, once pt has received new PAP supplies- as pt has had good clinical effect from PAP use. For worsening headaches and cognition status post fall with positive head strike, in setting of dyslipidemia, cavernous plaques noted in ICAs, and extra- axial calcification: Reviewed [facility] notes and imaging reports (unfortunately images are not currently available) Patient is advised to undergo brain MRI with and without contrast, and brain MRA without contrast, and brain MRA with and without contrast. Discussed simple strategies to reduce cognitive difficulties and forgetfulness, such as speaking slower, taking notes, doing cognitive stimulating activities, such as word search puzzles, engaging in regular physical activity as tolerated. For migraine: Continue vitamin-B complex Continue OTC magnesium Continue Amitriptyline 50mg daily at bedtime. Continue Ubrogepant (Ubrelvy) 100mg tab, 1/2 - 1 tab (50-100mg) at onset of headache, may repeat in 2 hours. Max of 2 tabs (200mg) per 24 hours. May adjunct with OTC Tylenol 650mg q 4 hours, Ibuprofen 600mg q 6 hours, or Naproxen 440mg q 12 hrs prn. Migraine tx contraindications: all triptans d/t HTN, tachycardia. Will follow-up upon review of above and patient to follow-up in clinic in 6 months or sooner prn. Orders: Orders MR head/brain wo/w con Today E78.5 - Hyperlipidemia, unspecified, R41.89 - Other symptoms and signs involving cognitive functions and awareness, R51.9 - Headache, unspecified, Z91.81 - History of falling MR angio neck wo/w con Today E78.5 - Hyperlipidemia, unspecified, R41.89 - Other symptoms and signs involving cognitive functions and awareness, R51.9 - Headache, unspecified, Z91.81 - History of falling MR angio head wo con Today E78.5 - Hyperlipidemia, unspecified, R41.89 - Other symptoms and signs involving cognitive functions and awareness, R51.9 - Headache, unspecified, Z91.81 - History of falling Coding Level of Care Code Est Pt Level 4 (10772) Diagnoses GABRIELA (obstructive sleep apnea) G47.33 Migraine without aura and without status migrainosus, not intractable G43.009 Status migrainosus presence: without status migrainosus Intractability: not intractable Concussion without loss of consciousness, subsequent encounter S06.0X0D Encounter type: subsequent encounter Loss of consciousness presence/duration: without LOC
--- OUTSIDE RECORDS SUMMARY | 2025-02-07 12:22 | XMS_ITS | Clinical Summary ---
Author Organization [address] [facility] Address [address] [place] [address] Phone Care Team Providers Care Binding Printer Name Role Phone Jesse Kauffman MD Primary [...] Upcoming Encounters Date Type Department Care Team ([facility] Contact Info) Description 02/20/2025 9:30 AM EST Office Visit Orthopedic Surgery - [place] [address] [facility] [address] [place] [phone] Harjit Zabala, DPM [address] [place] [phone] Health Maintenance Due Date Last Done Comments [...] ID:[id number] Group ID:[id number] Type:Not on file Address: [place] [address] [place] [id number] MEDICAID - [place] Care Teams Binding Printer Relationship Specialty Start Date End Date Jesse Kauffman MD [address] [place] [phone] PCP - General Internal Medicine 02/26/21
== END 2025-02-07 11:44 | disposition home or self-care (01) ==
LOC: HO.HSMS 10:53
PROVIDERS: PCP Internal Medicine; Visit Provider Nurse Practitioner Family
DX: G47.33 Obstructive sleep apnea (adult) (pediatric) (principal); G43.009 Migraine without aura, not intractable, without status migrainosus; S06.0X0D Concussion without loss of consciousness, subsequent encounter
CPT/HCPCS: 99214

== ENCOUNTER 2025-02-24 09:42 | Outpatient (AMB) | payer OTHER, SELFPAY ==
--- NOTE | 2025-02-24 10:46 | A.OFFVIS_ITS ---
Intake Visit Reasons: 6m/PVR Intake Note: Patient presents today for a 6m follow up/PVR Urology Meds: Oxybutynin, Amitriptyline, Mirabegron Allergies to Antibiotic: None Blood Thinner: Aspirin PVR:190ml Transportation Planner Required: Yes Transportation Planner Name: Mariam Information Interpreted: non-clinical & clinical Allergies No Known Allergies (No Known Allergies*) Allergy (Verified 02/24/25 10:46) Medication List - Last Reconciled 02/24/25 by Niranjan Washburn MD albuterol sulfate 90 mcg/actuation (Ventolin HFA) 0 mcg inhalation amitriptyline 50 mg PO BEDTIME amlodipine (Norvasc) 10 mg PO DAILY aspirin (Adult Low Dose Aspirin) 81 mg PO DAILY blood-glucose meter (FreeStyle [place] Lite kit) As directed calcium carbonate-vitamin D3 500 mg-5 mcg (200 unit) (Oyster Shell Calcium- Vitamin D3) tabs PO DAILY carvedilol 6.25 mg PO BID cholecalciferol (vitamin D3) (Vitamin D3) 50 mcg PO DAILY citalopram (Celexa) 20 mg PO DAILY clonazepam (Klonopin) 0.5 mg PO BEDTIME diclofenac potassium 50 mg PO BID PRN dicyclomine 20 mg PO TID duloxetine (Cymbalta) 60 mg PO DAILY esomeprazole magnesium 40 mg PO BEDTIME famotidine 40 mg PO BEDTIME fexofenadine (Allergy Relief (fexofenadine)) 180 mg PO DAILY PRN fluticasone propion-salmeterol 500-50 mcg/dose 1 ea inhalation BID furosemide (Lasix) 20 mg PO DAILY gabapentin (Neurontin) 600 mg PO BID hydralazine 25 mg PO BID incontinence pad, liner, disp As directed, change every 2-3 hours ipratropium bromide 2 sprays intranasal TID-QID PRN 30 days lancets (TRUEplus Lancets) As directed losartan (Cozaar) 100 mg PO DAILY meclizine (Dramamine (meclizine)) 25 mg PO TID PRN melatonin 3 - 6 mg PO BEDTIME PRN metformin 500 mg PO BID mirabegron ER (Myrbetriq) 50 mg PO QAM oregano oil mg PO oxybutynin chloride ER 5 mg PO DAILY oxycodone 5 mg PO BID PRN prednisone 40 mg (2 x 20 mg) PO DAILY simethicone (Gas Relief (simethicone)) 180 mg PO QID tirzepatide (weight loss) (Zepbound) 10 mg subcut QWEEK ubrogepant (Ubrelvy) 50 - 100 mg (0.5 - 1 x 100 mg) PO ONCE PRN 30 days vitamin B complex 1 cap PO DAILY HPI Comments Details: 02/24/2025--Chelsi is a 59-year-old female followed for mixed urinary incontinence she had urethral bulking for stress urinary incontinence on 10/03/2023. She is on anticholinergics Myrbetriq and oxybutynin for overactive bladder symptoms. Diabetes and Obesity comorbidity. History of Present Illness The patient is a 59-year-old female presenting with mixed urinary incontinence. She has been experiencing symptoms of both stress and urge incontinence. The patient underwent urethral bulking for stress urinary incontinence on October 03, 2023. She is currently on Mirabegron and Oxybutynin for overactive bladder symptoms. The patient's urinalysis shows no signs of infection or hematuria, indicating stable urinary health. She states that her urinary symptoms are under control. She does go frequently during the day because she drinks a lot of water. She gets up only 1 time at night to urinate. I want to cut back on the anticholinergic therapy. Results - Urinalysis: No signs of infection, no hematuria Plan 1. Mixed Urinary Incontinence - Continue current medications: Mirabegron 50 mg and Oxybutynin 10 mg, with a reduction of Oxybutynin to 5 mg to assess efficacy. - Follow-up in six months to evaluate the effectiveness of the medication adjustment. - Patient advised to contact the nurse if symptoms worsen after medication adjustment. 08/26/24--Chelsi is a 59-year-old female who is being followed for mixed urinary incontinence she is status post bulkamid, urethral bulking for stress urinary incontinence on 10/03/2023. She is here with her sister who interprets for her. She was on anti cholinergic therapy Myrbetriq 50 mg and oxybutynin 10 mg which she stated that she stopped after bulkamid procedure. She states that sometimes she feels she does not empty the bladder all the way. Recently she has noticed some leakage associated with coughing. Also when she is sleeping she has a pad on her bed and when she wakes up there is a little bit of urine mcclendon. She wears a panty liner during the day which is not always wet. The patient is on hydrochlorothiazide, a diuretic twice a day, I have discussed with her that this will also impact her urine symptoms. I have discussed the importance of Kegel exercises. I will refer her to pelvic floor physical therapy. I have advised her that while urinating if she feels she is not completely empty to stay relax and see if more urine will come out while toileting. The patient states she is on a new medication to lose weight and I have advised that being overweight also impacts her pelvic floor and urination symptoms. Follow-up in 6 months, monitor PVR. As patient had recent UTI I will also check renal ultrasound. 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 Trichomonal infection Screen for STD (sexually transmitted disease) Well woman exam Post covid-19 condition, unspecified TOUSSAINT (dyspnea on exertion) Urge incontinence Overactive bladder Stress incontinence Distal radius fracture, left Fracture of left distal radius Colon cancer screening Abdominal cramping Well woman exam with routine gynecological exam Subcutaneous abscess Cellulitis Urgency incontinence Microscopic hematuria Hx of fracture of wrist Hx of sleep apnea Hx of vertigo COVID GERD (gastroesophageal reflux disease) Pre-diabetes Epigastric pain Abdominal cramping Primary osteoarthritis of knees, bilateral Morbid obesity Osteoarthritis Fibromyalgia Arthritis Hypertension Surgical History History of open reduction and internal fixation (ORIF) procedure Hx of tubal ligation Hx of colonoscopy History of cholecystectomy (~2019) Family History Father Stomach cancer Brother Stomach problems Mother Diabetes Social History Household Members: Family Housing: Apartment Do you presently have visiting nurse or other home services: No Alcohol intake: current Alcohol intake frequency: does not drink Patient Tobacco Use Status: Former Tobacco user Tobacco use type: Cigarette Second Hand Smoke Exposure: No Advance Directives Date on File: 01/28/20 service: No Current occupational status: unemployed Sexual orientation: Straight/Heterosexual Gender identity: Female Review of Systems Const All systems reviewed & are unremarkable except as noted in HPI and below Reports no additional complaints Eyes Reports no additional complaints ENT Reports no additional complaints Card Reports no additional complaints Resp Reports no additional complaints GI Reports no additional complaints Reports as per HPI Musc Reports no additional complaints Skin/Breast Reports system reviewed and no additional complaints, except as documented Neuro Reports no additional complaints Psych Reports no additional complaints Endo Reports no additional complaints Segun/Lymph Reports no additional complaints Aller/Immun Reports no additional complaints Assessment & Plan Assessment & Plan (1) YOLA (stress urinary incontinence, female): Code(s): N39.3 - Stress incontinence (female) (male) Category: Medical (2) Urinary urgency: Code(s): R39.15 - Urgency of urination Category: Medical Plan Plan 1. Mixed Urinary Incontinence - Continue current medications: Mirabegron 50 mg and Oxybutynin 10 mg, with a reduction of Oxybutynin to 5 mg to assess efficacy. - Follow-up in six months to evaluate the effectiveness of the medication adjustment. - Patient advised to contact the nurse if symptoms worsen after medication adjustment. Medications: New oxybutynin chloride ER 5 mg PO DAILY 90 tabs 1RF Refilled mirabegron ER (Myrbetriq) 50 mg PO QAM 90 tabs 3RF Discontinued oxybutynin chloride ER Discontinued Reason: Doctor's Order 10 mg PO DAILY 30 days 30 tabs 0RF Patient Instructions: The patient had an opportunity to ask questions regarding treatment plan. The patient expressed understanding and agreement with the above treatment plan. The patient is aware they should contact our office by phone for worsening of their current condition or the appearance of new symptoms. Compliance is encouraged with any medications and followup testing that is ordered. It is a privilege to be allowed the opportunity to participate in the urologic care of your patient. If you have any questions or concerns regarding treatment for the above conditions please do not hesitate to contact me. The office telephone contact is [phone]. This note is constructed in part using voice recognition software. While every effort has been made to ensure accuracy outpatient facility physical therapist errors may have been included. Yours sincerely, Niranjan Washburn MD Scribe Plan - Not visible on output: Patient was informed and verbally consented to the use of an ambient scribe for clinic note documentation during this visit. Coding Level of Care Code Est Pt Level 4 (96251) Diagnoses YOLA (stress urinary incontinence, female) N39.3 Urinary urgency R39.15
== END 2025-02-24 11:26 | disposition home or self-care (01) ==
LOC: HO.HUSH 09:42
PROVIDERS: PCP Family Medicine; Visit Provider Urology
DX: N39.3 Stress incontinence (female) (male) (principal); R39.15 Urgency of urination; N32.81 Overactive bladder
CPT/HCPCS: 99214

== ENCOUNTER → 2025-02-24 09:42 | Outpatient (BNVA) | payer OTHER, SELFPAY | PROVIDERS: PCP Family Medicine; Visit Provider Urology | DX: R39.15 Urgency of urination (principal); N39.3 Stress incontinence (female) (male) | CPT/HCPCS: 51798; 81003; 99212 ==

== ENCOUNTER 2025-03-14 10:42 | Outpatient (REF) | payer OTHER, SELFPAY ==
--- NOTE | ~2025-03-14 | MM_ITS ---
EXAMINATION: MM SCREENING DIGITAL BREAST TOMOSYNTHESIS, BILATERAL CLINICAL INFORMATION: Screening. Asymptomatic. COMPARISON: Mammography: Comparison is made with available priors TECHNIQUE: Digital breast mammography with tomosynthesis is performed in both the craniocaudal and mediolateral oblique views along with computer-aided detection (CAD). FINDINGS: There are scattered areas of fibroglandular density. There are no significant masses, abnormal calcifications, or other abnormalities. MM/MM tomosynthesis screening BI IMPRESSION: No mammographic evidence of malignancy. ASSESSMENT: BI-RADS Category 1: Negative RECOMMENDATION: Routine annual mammography screening. 1 year F/U This examination should not preclude the clinical evaluation of a suspicious palpable abnormality. This patient's information was entered into a reminder system with a target due date for their next mammogram. Electronically signed by: Taty Mccartney DO 03/17/2025 12:40 PM KIRILL
--- OUTSIDE RECORDS SUMMARY | 2025-03-14 12:48 | XMS_ITS | Encounter Summary ---
Author Organization [employer] Address [address] [place] [address] Care Team Providers Care Packager Name Role Phone Chelsi Kauffman MD Primary Care Provide r Reason for Visit * Reason Comments Med Refill Encounter Details Date Type Department Care Team (Late Contact Info) Description 08/29/2022 Refill [facility] MED & PEDS [address] [place] [address] Chelsi Kauffman MD [address] [place] [address] Mild intermittent asthma without complication Social History [...] Department Care Team (Late Contact Info) Description 03/18/2025 9:45 AM EST Office Visit [facility] MEDICINE [address] [place] [phone] 05/16/2025 9:30 AM EST Office Visit [facility] ADULT DENTAL [address] [place] [phone] Nicole Lay [address] [place] [address] documented as of this encounter Visit Diagnoses Diagnosis Mild intermittent asthma without complication documented in this encounter Additional Health Concerns Assessment Noted Time PHQ-9 Depression Total Score: 24 023 2:25 PM EDT documented as of this encounter Care Teams Packager Relationship Specialty Start Date End Date Chelsi Kauffman MD [address] [place] [address] PCP - General Family Medicine 12/20/18 documented as of this encounter
--- OUTSIDE RECORDS SUMMARY | 2025-03-14 12:48 | XMS_ITS | Encounter Summary ---
Author Organization [employer] Address [address] [place] [address] [address] [place] [address] Care Team Providers Care Wallpaper Consultant Name Role Phone Chelsi Kauffman MD Primary Care Provide r Reason for Visit * Reason Comments Med Refill Encounter Details Date Type Department Care Team (Late st Contact Info) Description 08/24/2022 Refill [facility] CH[facility] MED & PEDS [address] [place] [address] Mariana Meyer MD [address] [place] [address] Social History Tobacco Use Types Packs/Day Years [...] Upcoming Encounters Date Type Department Care Team ([facility] Contact Info) Description 03/18/2025 9:45 AM EST Office Visit [facility] MEDICINE [address] [place] [address] 05/16/2025 9:30 AM EST Office Visit [facility] ADULT DENTAL [address] [place] [address] Nicole Lay [address] [place] [address] documented as of this encounter Visit Diagnoses Not on filedocumented in this encounter Additional Health Concerns Assessment Noted Time PHQ-9 Depression Total Score: 24 023 2:25 PM EDT documented as of this encounter Care Teams Wallpaper Consultant Relationship Specialty Start Date End Date Chelsi Kauffman MD [address] [place] [address] PCP - General Family Medicine 12/20/18 documented as of this encounter
--- OUTSIDE RECORDS SUMMARY | 2025-03-14 12:48 | XMS_ITS | Encounter Summary ---
Author Organization [employer] Address [address] [place] [address] Care Team Providers Care Packaging Line Operator Name Role Phone Chelsi Kauffman MD Primary Care Provide r Reason for Visit * Reason Onset Date Comments Durable Medical Equipment 07/28/2022 Encounter Details Date Type Department Care Team ([facility] st Contact Info) Description 07/28/2022 Telephone [facility] MEDICINE [address] [place] [address] Chelsi Kauffman MD [address] [place] [address] Durable Medical Equipment Social History Tobacco Use [...] Care Team (Late st Contact Info) Description 03/18/2025 9:45 AM EST Office Visit [facility] MEDICINE [address] [place] [address] 05/16/2025 9:30 AM EST Office Visit [facility] ADULT DENTAL [address] [place] [address] Nicole Lay [address] [place] [address] documented as of this encounter Visit Diagnoses Not on filedocumented in this encounter Additional Health Concerns Assessment Noted Time PHQ-9 Depression Total Score: 24 023 2:25 PM EDT documented as of this encounter Care Teams Packaging Line Operator Relationship Specialty Start Date End Date Chelsi Kauffman MD [address] [place] [address] PCP - General Family Medicine 12/20/18 documented as of this encounter
--- OUTSIDE RECORDS SUMMARY | 2025-03-14 12:48 | XMS_ITS | Clinical Summary ---
Author Organization 175 [facility] Address 175 [place] [address] Phone Care Team Providers Care Hand Pleater Name Role Phone Jesse Kauffman MD Primary Care Provide r Allergies No known active allergies Medications acetaminophen (TYLENOL) 500 mg tablet Take 1 tablet (500 mg total) by mouth every 8 (eight) hours if needed. for moderate pain Active albuterol 2.5 mg /3 mL (0.083 %) nebulizer solution INHALE 1 AMPULE USING A NEBULIZER THREE TIMES DAILY DIRECTED 5 Active amitriptyline (ELAVIL) 50 mg tablet Take 1 tablet (50 mg total) by mouth. at bedtime. Active Alcohol Prep Pads pads, medicated USE DIRECTED TO TEST BLOOD SUGAR BEFORE MEALS AND AT BEDTIME AND BEFORE SNACKS 5 Active amLODIPine (NORVASC) 10 mg tablet Take 1 tablet (10 mg total) by mouth 1 (one) time each day in the morning. Active aspirin 81 mg capsule Take 324 mg by mouth. 1 Active blood pressure test kit-large kit USE TO CHECK BLOOD PRESSURE DIRECTED 4 Active butalbital-yahaira taminophen-caf feine (FIORICET, ESGIC) 50-325-40 mg per tablet TAKE 1 TO 2 TABLETS BY MOUTH EVERY 4 HOURS NEEDED 5 Active Oyster Shell Calcium-Vit D3 500 mg-5 mcg (200 unit) per tablet Take 1 tablet by mouth 1 (one) time each day in the morning. 5 Active carvediloL (COREG) 6.25 mg tablet TAKE 1 TABLET BY MOUTH WITH BREAKFAST AND EVENING MEAL 5 Active citalopram (CeleXA) 20 mg tablet Take 1 tablet (20 mg total) by mouth 1 (one) time each day in the morning. Active clonazePAM (KlonoPIN) 0.5 mg tablet Take 1 tablet (0.5 mg total) by mouth 3 (three) times a day if needed. Active clotrimazole-b etamethasone (LOTRISONE) 1-0.05 % cream APPLY 1/2 GRAM TOPICALLY TO AFFECTED AREA(S) TWICE DAILY FOR 28 DAILY 5 Active diclofenac (CATAFLAM) 50 mg tablet Take 1 tablet (50 mg total) by mouth 2 times daily. 4 Active dicyclomine (BENTYL) 20 mg tablet Take 1 tablet (20 mg total) by mouth 3 times daily. 3 Active duloxetine HCl (CYMBALTA ORAL) Take by mouth. 1 Active esomeprazole (NexIUM) [address] capsule Take 1 capsule (40 mg total) by mouth. at bedtime Active famotidine (PEPCID) 40 mg tablet Take 1 tablet (40 mg total) by mouth. at bedtime. Active fexofenadine (GORDON) 180 mg tablet TAKE 1 TABLET BY MOUTH EVERY MORNING NEEDED FOR ALLERGIES 5 Active fluticasone propionate (FLONASE) 50 mcg/actuation nasal spray INSTILL 2 SPRAYS IN EACH NOSTRIL ONCE DAILY IN THE MORNING 5 Active furosemide (LASIX) 20 mg tablet 5 Active gabapentin (NEURONTIN) 600 mg tablet TAKE 1 TABLET BY MOUTH TWICE DAILY IN THE MORNING AND IN THE EVENING Active hydrALAZINE (APRESOLINE) 25 mg tablet TAKE 1 TABLET BY MOUTH TWICE DAILY IN THE MORNING AND AT BEDTIME Active hydroCHLOROthi azide (HYDRODIURIL) 25 mg tablet Take 1 tablet (25 mg total) by mouth 1 (one) time each day in the morning. Active ipratropium (ATROVENT) 42 mcg (0.06 %) nasal spray USE 2 SPRAYS IN EACH NOSTRIL THREE OR FOUR TIMES DAILY NEEDED FOR ALLERGIES Active TRUEplus Lancets 33 gauge misc USE DIRECTED TO TEST BLOOD SUGAR TWICE DAILY 5 Active lidocaine (LIDODERM) 5 % patch Apply 1 patch topically daily. 5 Active losartan (COZAAR) 100 mg tablet Take 1 tablet (100 mg total) by mouth 1 (one) time each day in the morning. Active meclizine (ANTIVERT) 25 mg tablet Take 1 tablet (25 mg total) by mouth. 5 Active metFORMIN (GLUCOPHAGE) 500 mg tablet TAKE 1 TABLET BY MOUTH TWICE DAILY IN THE MORNING AND AT BEDTIME WITH FOOD Active mirabegron (Myrbetriq) 50 mg 24 hr tablet Take 1 tablet (50 mg total) by mouth daily. 4 Active ondansetron (ZOFRAN) 4 mg tablet TAKE 2 TABLETS BY MOUTH EVERY 8 HOURS NEEDED FOR NAUSEA AND VOMITING FOR UP TO 7 DAYS 5 Active oxyCODONE (ROXICODONE) 5 mg immediate release tablet TAKE 1 TABLET BY MOUTH EVERY TWELVE HOURS NEEDED FOR SEVERE PAIN FOR UP TO 28 DAYS 5 025 Active polyvinyl alcohol (ARTIFICIAL TEARS) 1.4 % ophthalmic solution PLACE 1 DROP IN EACH EYE THREE TIMES DAILY IN THE MORNING, AT NOON, AND AT BEDTIME NEEDED FOR DRY EYES 5 Active Wegovy 0.5 mg/0.5 mL injection pen INJECT ONE PEN (=0.5MG) SUBCUTANEOUSLY ONCE A WEEK DIRECTED 4 Active Gas Relief, simethicone, 180 mg capsule Take 1 capsule (180 mg total) by mouth. Active tirzepatide, weight loss, (Zepbound) 15 mg/0.5 mL solution Inject 0.5 mL (15 mg total) under the skin. 5 Active Ubrelvy 100 mg tablet TAKE 1/2 TO 1 TABLET BY MOUTH AT ONSET OF MIGRAINE. MAY REPEAT IN 2 HOURS NEEDED. MAY TAKE WITH IBUPROFEN Active Encounters Date Type Department Care Team Description 02/20/2025 9:30 AM EST Office Visit [facility] [place] [address] [place] [phone] Harjit Zabala, DPM Posterior tibial tendinitis of left leg (Primary Dx); Arthritis of left ankle from Last 3 Months Social History Tobacco Use Types Packs/Day Years Used Date Smoking Tobacco: Never Assessed Comments Unknown Sex and Gender Information Value Date Recorded Sex Assigned at Not on file Legal Sex Female 10:26 AM EST Gender Identity Not on file Sexual Orientation Not on file Plan of Treatment Upcoming Encounters Date Type Department Care Team ([facility] st Contact Info) Description 06/16/2025 9:30 AM EDT Office Visit [facility] [place] 250 175 [facility] 250 [place] [address] Harjit Zabala, DPM [address] [phone] Health Maintenance Due Date Last Done Comments Breast Cancer Screening 1965 Colorectal Cancer Screening: Colonoscopy 1964 Cervical Cancer Screening: Pap Smear 1985 RSV Immunization Adult Patients (1 - Risk 50-74 years 1-dose series) 2014 Depression Screening 04/10/2024 HIV Screening 09/24/2024 Hepatitis C Screening 09/24/2024 Medicare Annual Wellness Visit 09/24/2024 Social Influencers of Health Screening 09/24/2024 COVID-19 Vaccine ( season) 2024 02/16/2024, 11/17/2021, 06/02/2021, Additional history exists Hypertension/CHF/CAD Annual BMP Blood Test 02/20/2025 Cholesterol Screening (Lipid Panel) 07/10/2029 07/10/2024 DTaP,Tdap,and Td Vaccines (2 - Td or Tdap) 06/13/2033 06/14/2023 Pneumococcal Vaccine: 50+ Years Completed 01/18/2022 Zoster Vaccines Completed 06/14/2023, 01/18/2022 Hepatitis B Vaccines Completed 09/26/2023, 08/15/19 24 Influenza Vaccine Completed 02/12/2025, , 02/06/2023, Additional history exists HIB Vaccines Aged Out [...] to complete this topic RSV Immunization Patients Under 20 months Aged Out No longer eligible based on patient's age to complete this topic Varicella Vaccines Aged Out No longer eligible based on patient's age to complete this topic Insurance [employer] MEDICARE Member Subscriber Plan / Payer (Ef fective 2021-Present) Name:JESSE ANNA Relation to Subscriber:Self Name:Jesse Anna Payer ID:[id number] Group ID:[id number] Type:Not on file Address: [place] [address] [place] [phone] MEDICAID - [place] Care Teams Hand Pleater Relationship Specialty Start Date End Date Jesse Kauffman MD [address] [place] [phone] PCP - General Internal Medicine 02/26/21
--- OUTSIDE RECORDS SUMMARY | 2025-03-14 12:48 | XMS_ITS | Encounter Summary ---
Author Organization [employer] Address [address] [place] [address] Care Team Providers Care Manager Installation Name Role Phone Chelsi Kauffman MD Primary Care Provide r Reason for Visit * Reason Comments Med Refill Encounter Details Date Type Department Care Team (Late st Contact Info) Description 09/18/2022 Refill [facility] [address] [place] [address] Chelsi Kauffman MD [address] [place] [address] Asthma in adult, moderate persistent, uncomplicated Social [...] Description 03/18/2025 9:45 AM EST Office Visit [facility] [address] [place] [address] 05/16/2025 9:30 AM EST Office Visit [facility] ADULT DENTAL [address] [place] [address] Nicole Lay [address] [place] [address] documented as of this encounter Visit Diagnoses Diagnosis Asthma in adult, moderate persistent, uncomplicated documented in this encounter Additional Health Concerns Assessment Noted Time PHQ-9 Depression Total Score: 24 023 2:25 PM EDT documented as of this encounter Care Teams Manager Installation Relationship Specialty Start Date End Date Chelsi Kauffman MD [address] [place] [address] PCP - General Family Medicine 12/20/18 documented as of this encounter
--- OUTSIDE RECORDS SUMMARY | 2025-03-14 12:48 | XMS_ITS | Encounter Summary ---
Author Organization [employer] Address [address] [place] [address] Care Team Providers Care Water Quality Assistant Name Role Phone Chelsi Kauffman MD Primary Care Provide r Reason for Visit * Reason Onset Date Comments triage 06/09/2022 Encounter Details Date Type Department Care Team ([facility] st Contact Info) Description 06/09/2022 Telephone [facility] 230 [place] [address] Chelsi Kauffman MD [address] [place] [address] triage Social History Tobacco Use Types Packs/Day [...] 06/09/2022 12:16 PM EST Triage call with [employer] Observer ID [id number] Pt reports third time with Covid. Covid [...] accepted this outcome Please contact pt at [phone] Greek Speaker documented in this encounter Plan of Treatment Upcoming Encounters Date Type Department Care Team (Late st Contact Info) Description 03/18/2025 9:45 AM EST Office Visit [facility] [address] [place] [address] 05/16/2025 9:30 AM EST Office Visit [facility] ADULT DENTAL [address] [place] [address] Nicole Lay [address] [place] [address] documented as of this encounter Visit Diagnoses Not on filedocumented in this encounter Care Teams Water Quality Assistant Relationship Specialty Start Date End Date Chelsi Kauffman MD [address] [place] [address] PCP - General Family Medicine 12/20/18 documented as of this encounter
--- OUTSIDE RECORDS SUMMARY | 2025-03-14 12:49 | XMS_ITS | Encounter Summary ---
Author Organization [employer] Address [address] [place] [address] [facility] [place] [address] Care Team Providers Care Accounting File Clerk Name Role Phone Chelsi Kauffman MD Primary Care Provide r Reason for Referral * Consultation (Routine) - Closed Specialty Diagnoses / Procedures Referred By Contac t Referred To Contact Physical Therapy Diagnoses Benign paroxysmal vertigo, unspecified laterality Christine Laurent MD [address] [place] [address] Phone: tel: fax: [facility] [address] [place] [address] Phone: tel: fax: Referral ID Status Reason Start Date Expiration Date V isits Requested Visits Authorized [id number] Closed Specialty Services Required 04/26/2024 04/26/2025 1 1 Encounter Details Date Type Department Care Team (Late st Contact Info) Description 04/26/2024 Orders Only [facility] [address] [place] [phone] Christine Laurent MD 230 [place], [place] [phone] Benign paroxysmal vertigo, unspecified laterality (Primary Dx) [...] Description 03/18/2025 9:45 AM EST Office Visit [facility] [address] [place] [address] 05/16/2025 9:30 AM EST Office Visit [facility] ADULT DENTAL [address] [place] [address] Nicole Lay [address] [place] [address] Scheduled Referrals Name Type Priority Associated Diagnoses [...] documented as of this encounter Care Teams Accounting File Clerk Relationship Specialty Start Date End Date Chelsi Kauffman MD [address] [place] [address] PCP - General Family Medicine 12/20/18 documented as of this encounter
--- OUTSIDE RECORDS SUMMARY | 2025-03-14 12:49 | XMS_ITS | Encounter Summary ---
Author Organization [employer] Address 75 [facility] 7t [place] [address] Care Team Providers Care Material Loader Name Role Phone Chelsi Kauffman MD Primary Care Provide r Encounter Details Date Type Department Care Team (Late st Contact Info) Description 01/17/2023 Abstract [facility] MED[facility]INE [address] [place] [address] Griselda Segal Social History Tobacco Use Types [...] Description 03/18/2025 9:45 AM EST Office Visit [facility] [address] [place], [place] [phone] 05/16/2025 9:30 AM EST Office Visit [facility] ADULT DENTAL [address] [place], [place] [phone] Nicole Lay 230 [place] [address] documented as of this encounter Procedures Procedure [...] documented as of this encounter Care Teams Material Loader Relationship Specialty Start Date End Date Chelsi Kauffman MD [address] [place] [address] PCP - General Family Medicine 12/20/18 documented as of this encounter
--- OUTSIDE RECORDS SUMMARY | 2025-03-14 12:49 | XMS_ITS | Encounter Summary ---
Author Organization [employer] Address [address] [place] [address] Care Team Providers Care Commissioner Public Works Name Role Phone Chelsi Kauffman MD Primary Care Provide r Encounter Details Date Type Department Care Team (Latest Contact Info) Description 11/23/2021 Abstract [facility] CONVERSIONS Dental, Provider, DDS Social History [...] Description 03/18/2025 9:45 AM EST Office Visit [facility] MEDICINE 230 [place] [address] 05/16/2025 9:30 AM EST Office Visit [facility] ADULT DENTAL [address] [place] [address] Alireza, Nicole [address] [place] [address] documented as of this encounter Visit Diagnoses Not on filedocumented in this encounter Care Teams Commissioner Public Works Relationship Specialty Start Date End Date Chelsi Kauffman MD 230 [place] [address] PCP - General Family Medicine 12/20/18 documented as of this encounter
--- OUTSIDE RECORDS SUMMARY | 2025-03-14 12:49 | XMS_ITS | Encounter Summary ---
Author Organization [employer] Address [address] [place] [address] [facility] [place] [address] Care Team Providers Care Collective Bargaining Specialist Name Role Phone Chelsi Kauffman MD Primary Care Provide r Reason for Visit * Reason Comments Med Refill Encounter Details Date Type Department Care Team ([facility] st Contact Info) Description 12/16/2024 Refill [facility] [address] [place] [address] Chelsi Kauffman MD [address] [place] [address] Preventative health care; Hypertension, unspecified type Social [...] Description 03/18/2025 9:45 AM EST Office Visit [facility] [address] [place] [address] 05/16/2025 9:30 AM EST Office Visit [facility] ADULT DENTAL [address] [place] [address] Alireza, Nicole [address] [place] [address] documented as of this encounter Goals Goal [...] documented as of this encounter Care Teams Collective Bargaining Specialist Relationship Specialty Start Date End Date Chelsi Kauffman MD [address] [place] [address] PCP - General Family Medicine 12/20/18 documented as of this encounter
--- OUTSIDE RECORDS SUMMARY | 2025-03-14 12:49 | XMS_ITS | Encounter Summary ---
Author Organization [employer] Address [address] [place] [address] [facility] [place] [address] Care Team Providers Care School Based Therapist Name Role Phone Chelsi Kauffman MD Primary Care Provide r Reason for Visit * Reason Comments Med Refill Encounter Details Date Type Department Care Team ([facility] st Contact Info) Description 03/16/2023 Refill [facility] MEDICINE 230 [place] [address] Chelsi Kauffman MD [address] [place] [address] Dry eyes Social History Tobacco Use Types [...] Description 03/18/2025 9:45 AM EST Office Visit [facility] MEDICINE [address] [place] [address] 05/16/2025 9:30 AM EST Office Visit [facility] ADULT DENTAL 230 [place] [address] Alireza, Nicole 230 [place] [address] documented as of this encounter Visit Diagnoses Diagnosis Dry eyes Unspecified tear film insufficiency documented in this encounter Additional Health Concerns Assessment Noted Time PHQ-9 Depression Total Score: 24 023 2:25 PM EDT documented as of this encounter Care Teams School Based Therapist Relationship Specialty Start Date End Date Chelsi Kauffman MD [address] [place] [address] PCP - General Family Medicine 12/20/18 documented as of this encounter
--- OUTSIDE RECORDS SUMMARY | 2025-03-14 12:49 | XMS_ITS | Encounter Summary ---
Author Organization [employer] Address [address] [place] [address] [facility] [place] [address] Care Team Providers Care Hvac/R Service Technician Name Role Phone Chelsi Kauffman MD Primary Care Provide r Reason for Visit * Reason Comments Med Refill Encounter Details Date Type Department Care Team ([facility] st Contact Info) Description 03/08/2023 Refill [facility] 230 [place] [address] Chelsi Kauffman MD [address] [place] [address] Migraine without aura, not refractory Social History [...] Description 03/18/2025 9:45 AM EST Office Visit [facility] 230 [place] [address] 05/16/2025 9:30 AM EST Office Visit [facility] ADULT DENTAL 230 [place] [address] Nicole Lay 230 [place] [address] documented as of this encounter Visit Diagnoses Diagnosis Migraine without aura, not refractory documented in this encounter Additional Health Concerns Assessment Noted Time PHQ-9 Depression Total Score: 24 023 2:25 PM EDT documented as of this encounter Care Teams Hvac/R Service Technician Relationship Specialty Start Date End Date Chelsi Kauffman MD [address] [place] [address] PCP - General Family Medicine 12/20/18 documented as of this encounter
--- OUTSIDE RECORDS SUMMARY | 2025-03-14 12:49 | XMS_ITS | Encounter Summary ---
Author Organization [employer] Address 75 [facility] 7 [place] [address] Care Team Providers Care Solar Sales Estimator Name Role Phone Chelsi Kauffman MD Primary Care Provide r Encounter Details Date Type Department Care Team ([facility] st Contact Info) Description 03/25/2024 Telephone [facility] MED[facility]INE 230 [place] [address] Chelsi Kauffman MD 230 [place], [place] [phone] Social History Tobacco Use Types Packs/Day Years [...] Description 03/18/2025 9:45 AM EST Office Visit [facility] [address] [place] [address] 05/16/2025 9:30 AM EST Office Visit [facility] ADULT DENTAL [address] [place] [address] Alireza, Nicole [address] [place] [address] documented as of this encounter Goals Goal [...] documented as of this encounter Care Teams Solar Sales Estimator Relationship Specialty Start Date End Date Chelsi Kauffman MD [address] [place] [address] PCP - General Family Medicine 12/20/18 documented as of this encounter
--- OUTSIDE RECORDS SUMMARY | 2025-03-14 12:49 | XMS_ITS | Encounter Summary ---
Author Organization [employer] Address [address] [place] [address] 7 [place] [address] Care Team Providers Care Senior Pl Sql Developer Name Role Phone Chelsi Kauffman MD Primary Care Provide r Reason for Visit * Reason Comments Med Refill Encounter Details Date Type Department Care Team ([facility] st Contact Info) Description 05/09/2023 Refill [facility] [address] [place] [address] Chelsi Kauffman MD 230 [place] [address] Migraine without aura, not refractory Social History [...] Description 03/18/2025 9:45 AM EST Office Visit [facility] [address] [place] [address] 05/16/2025 9:30 AM EST Office Visit [facility] ADULT DENTAL [address] [place] [address] Alireza, Nicole [address] [place] [address] documented as of this encounter Visit Diagnoses Diagnosis Migraine without aura, not refractory documented in this encounter Additional Health Concerns Assessment Noted Time PHQ-9 Depression Total Score: 0 04/25/19 24 9:30 AM EST documented as of this encounter Care Teams Senior Pl Sql Developer Relationship Specialty Start Date End Date Chelsi Kauffman MD [address] [place] [address] PCP - General Family Medicine 12/20/18 documented as of this encounter
--- OUTSIDE RECORDS SUMMARY | 2025-03-14 12:49 | XMS_ITS | Encounter Summary ---
Author Organization [employer] Address [address] [place] [address] [facility] [place] [address] Care Team Providers Care Electrotyper Helper Name Role Phone Chelsi Kauffman MD Primary Care Provide r Reason for Visit * Reason Comments Med Refill Encounter Details Date Type Department Care Team ([facility] st Contact Info) Description 04/04/2023 Refill [facility] MEDICINE [address] [place] [address] Chelsi Kauffman MD [address] [place] [address] Asthma in adult, moderate persistent, uncomplicated Social [...] Description 03/18/2025 9:45 AM EST Office Visit [facility] MEDICINE [address] [place] [address] 05/16/2025 9:30 AM EST Office Visit [facility] ADULT DENTAL [address] [place] [address] Alireza, Nicole [address] [place] [address] documented as of this encounter Visit Diagnoses Diagnosis Asthma in adult, moderate persistent, uncomplicated documented in this encounter Additional Health Concerns Assessment Noted Time PHQ-9 Depression Total Score: 24 023 2:25 PM EDT documented as of this encounter Care Teams Electrotyper Helper Relationship Specialty Start Date End Date Chelsi Kauffman MD [address] [place] [address] PCP - General Family Medicine 12/20/18 documented as of this encounter
--- OUTSIDE RECORDS SUMMARY | 2025-03-14 12:49 | XMS_ITS | Encounter Summary ---
Author Organization [employer] Address 75 [facility] 7 [place] [address] Care Team Providers Care Auto Body Repair Estimator Name Role Phone Chelsi Kauffman MD Primary Care Provide r Reason for Visit * Reason Comments Med Refill Encounter Details Date Type Department Care Team ([facility] st Contact Info) Description 09/14/2023 Refill [facility] MEDICINE [address] [place] [address] Chelsi Kauffman MD 230 [place] [address] Polyarthralgia Social History Tobacco Use Types Packs/Day [...] 9:45 AM EST Office Visit [facility] MEDICINE [address] [place] [address] 05/16/2025 9:30 AM EST Office Visit [facility] ADULT DENTAL [address] [place] [address] Alireza, Nicole [address] [place] [address] documented as of this encounter Goals Goal Patient Goal Type Associated Problems Recent Progress Patient-Stated? Author Record your blood pressure once per day Blood Pressure On track( 024 12:41 PM EDT) Alena Dowd Blood Pressure < 140/90 Blood Pressure 124/82(2024 11:29 AM EDT) No Alena Cerda documented as of this encounter Visit Diagnoses Diagnosis Polyarthralgia Pain in joint, multiple sites documented in this encounter Additional Health Concerns Assessment Noted Time PHQ-9 Depression Total Score: 0 04/25/19 24 9:30 AM EST documented as of this encounter Care Teams Auto Body Repair Estimator Relationship Specialty Start Date End Date Chelsi Kauffman MD [address] [place] [address] PCP - General Family Medicine 12/20/18 documented as of this encounter
--- OUTSIDE RECORDS SUMMARY | 2025-03-14 12:49 | XMS_ITS | Encounter Summary ---
Author Organization [employer] Address [address] [place] [address] [place] [address] Care Team Providers Care Zinc Plating Machine Operator Name Role Phone Chelsi Kauffman MD Primary Care Provide r Reason for Visit * Reason Onset Date Comments Med Refill 05/30/2024 Encounter Details Date Type Department Care Team (Late st Contact Info) Description 05/30/2024 Refill [facility] MEDICINE [address] [place] [address] Chelsi Kauffman MD [address] [place] [address] Social History Tobacco Use Types Packs/Day Years [...] MG/0.5ML solution auto-injector To be sent to: [facility] - [place], [place] - [address] [place] [address] documented in this encounter Plan of Treatment Upcoming Encounters Date Type Department Care Team ([facility] st Contact Info) Description 03/18/2025 9:45 AM EST Office Visit [facility] [address] [place] [address] 05/16/2025 9:30 AM EST Office Visit [facility] ADULT DENTAL [address] [place] [address] Nicole Lay [address] [place] [address] documented as of this encounter Goals Goal [...] documented as of this encounter Care Teams Zinc Plating Machine Operator Relationship Specialty Start Date End Date Chelsi Kauffman MD [address] [place] [address] PCP - General Family Medicine 12/20/18 documented as of this encounter
--- OUTSIDE RECORDS SUMMARY | 2025-03-14 12:49 | XMS_ITS | Encounter Summary ---
Author Organization [employer] Address [address] [facility] 7 [place] [address] Care Team Providers Care Vacuum Conditioner Operator Name Role Phone Chelsi Kauffman MD Primary Care Provide r Reason for Visit * Reason Comments Med Refill Encounter Details Date Type Department Care Team ([facility] st Contact Info) Description 03/31/2023 Refill [facility] MED & PEDS [address] [place] [address] Kiana Santos, DO [address] [place] [address] Vitamin D deficiency, unspecified Social History Tobacco [...] Description 03/18/2025 9:45 AM EST Office Visit [facility] MEDICINE [address] [place] [address] 05/16/2025 9:30 AM EST Office Visit [facility] ADULT DENTAL [address] [place] [address] Nicole Lay [address] [place] [address] documented as of this encounter Visit Diagnoses Diagnosis Vitamin D deficiency, unspecified documented in this encounter Additional Health Concerns Assessment Noted Time PHQ-9 Depression Total Score: 24 023 2:25 PM EDT documented as of this encounter Care Teams Vacuum Conditioner Operator Relationship Specialty Start Date End Date Chelsi Kauffman MD [address] [place] [address] PCP - General Family Medicine 12/20/18 documented as of this encounter
--- OUTSIDE RECORDS SUMMARY | 2025-03-14 12:49 | XMS_ITS | Encounter Summary ---
Author Organization [employer] Address [address] [place] [address] Care Team Providers Care Digital Sales Director Name Role Phone Chelsi Kauffman MD Primary Care Provide r Reason for Visit * Reason Onset Date Comments Referral 08/12/2024 Encounter Details Date Type Department Care Team ([facility] st Contact Info) Description 08/12/2024 Telephone [facility] MEDICINE [address] [place] [address] Chelsi Kauffman MD [address] [place] [address] Referral Social History Tobacco Use Types Packs/Day [...] referral : DATE: 08/12/2024 TIME: 10:00am Address: [address] [place] [address] Visits: 1 Facility Name: [facility] Type of Specialist: physical therapy [id number] Provider : not provided Provider NPI : Facility NPI: [id number] Phone # : [phone] Fax #: [phone] documented in this encounter Plan of Treatment Upcoming Encounters Date Type Department Care Team ([facility] Contact Info) Description 03/18/2025 9:45 AM EST Office Visit [facility] MEDICINE [address] [place] [address] 05/16/2025 9:30 AM EST Office Visit [facility] ADULT DENTAL [address] [place] [address] Nicole Lay [address] [place] [address] documented as of this encounter Goals Goal [...] documented as of this encounter Care Teams Digital Sales Director Relationship Specialty Start Date End Date Chelsi Kauffman MD [address] [place] [address] PCP - General Family Medicine 12/20/18 documented as of this encounter
--- OUTSIDE RECORDS SUMMARY | 2025-03-14 12:49 | XMS_ITS | Encounter Summary ---
Author Organization [employer] Address [address] [facility] 7 [place] [address] Care Team Providers Care Adjunct Business Instructor Name Role Phone Chelsi Kauffman MD Primary Care Provide r Reason for Visit * Reason Comments Med Refill Encounter Details Date Type Department Care Team ([facility] st Contact Info) Description 11/10/2023 Refill [facility] MEDICINE [address] [place] [address] Chelsi Kauffman MD [address] [place] [address] Chronic toe pain, left foot Social History [...] Description 03/18/2025 9:45 AM EST Office Visit [facility] MEDICINE [address] [place] [address] 05/16/2025 9:30 AM EST Office Visit [facility] ADULT DENTAL [address] [place] [address] Alireza, Nicole [address] [place] [address] documented as of this encounter Goals Goal [...] as of this encounter Care Teams Adjunct Business Instructor Relationship Specialty Start Date End Date Chelsi Kauffman MD [address] [place] [address] PCP - General Family Medicine 12/20/18 documented as of this encounter
--- OUTSIDE RECORDS SUMMARY | 2025-03-14 12:49 | XMS_ITS | Encounter Summary ---
Author Organization [employer] Address [address] [place] [address] 7 [place] [address] Care Team Providers Care Melter Supervisor Electric Arc Furnace Name Role Phone Chelsi Kauffman MD Primary Care Provide r Reason for Visit * Reason Comments Med Refill Encounter Details Date Type Department Care Team ([facility] st Contact Info) Description 03/12/2025 Refill [facility] MED & PEDS [address] [place] [address] Chelsi Kauffman MD [address] [place] [address] Chronic midline low back pain with right-sided sciatica; Polyarthralgia Social History Tobacco Use Types Packs/Day [...] Description 03/18/2025 9:45 AM EST Office Visit [facility] MEDICINE [address] [place] [address] 05/16/2025 9:30 AM EST Office Visit [facility] ADULT DENTAL [address] [place] [address] Alireza, Nicole [address] [place] [address] documented as of this encounter Goals Goal Patient Goal Type Associated Problems Recent Progress Patient-Stated? Author Record your blood pressure once per day Blood Pressure On track( 024 12:41 PM EDT) No Alena Cerda Blood Pressure < 140/90 Blood Pressure 124/82(2024 11:29 AM EDT) No Alena Cerda documented as of this encounter Visit Diagnoses Diagnosis Chronic midline low back pain with right-sided sciatica Polyarthralgia Pain in joint, multiple sites documented in this encounter Additional Health Concerns Assessment Noted Time PHQ-9 Depression Total Score: 0 01/17/20 24 11:19 AM EDT documented as of this encounter Care Teams Melter Supervisor Electric Arc Furnace Relationship Specialty Start Date End Date Chelsi Kauffman MD [address] [place] [address] PCP - General Family Medicine 12/20/18 documented as of this encounter
--- OUTSIDE RECORDS SUMMARY | 2025-03-14 12:49 | XMS_ITS | Encounter Summary ---
Author Organization [employer] Address [address] [place] [address] Care Team Providers Care 3Rd Mate Name Role Phone Chelsi Kauffman MD Primary Care Provide r Reason for Visit * Reason Onset Date Comments Reschedule 06/13/2023 Encounter Details Date Type Department Care Team ([facility] st Contact Info) Description 06/13/2023 Telephone [facility] MEDICINE [address] [place] [address] Chelsi Kauffman MD [address] [place] [address] Reschedule Social History Tobacco Use Types Packs/Day [...] 04/07 Derm appointment. Please contact pt at [phone] documented in this encounter Plan of Treatment Upcoming Encounters Date Type Department Care Team (Late st Contact Info) Description 03/18/2025 9:45 AM EST Office Visit [facility] MEDICINE [address] [place] [address] 05/16/2025 9:30 AM EST Office Visit [facility] ADULT DENTAL [address] [place] [address] Nicole Lay [address] [place] [address] documented as of this encounter Visit Diagnoses Not on filedocumented in this encounter Additional Health Concerns Assessment Noted Time PHQ-9 Depression Total Score: 0 04/25/19 24 9:30 AM EST documented as of this encounter Care Teams 3Rd Mate Relationship Specialty Start Date End Date Chelsi Kauffman MD [address] [place] [address] PCP - General Family Medicine 12/20/18 documented as of this encounter
--- OUTSIDE RECORDS SUMMARY | 2025-03-14 12:49 | XMS_ITS | Clinical Summary ---
Author Organization [employer] Address [address] [place] [address] 7 [place] [address] Care Team Providers Care [employer] Supervisor Name Role Phone Chelsi Kauffman MD [...] mg by mouth 2 times daily. Active Blood Glucose Monitoring Suppl (FreeStyle Rainbow Lite) w/Device kitIndications:P rediabetes Use to test blood sugar 2 times daily 1 kit Active hydroCHLOROthiaz gary (HYDRODiuril) 25 MG tablet TAKE 1 TABLET BY MOUTH EVERY MORNING 90 tablet 3 024 Active losartan (Cozaar) 100 MG tablet TAKE 1 TABLET BY MOUTH EVERY MORNING 90 tablet 3 024 Active Blood Pressure kit Use to check BP as directed. 1 kit Active clotrimazole-bet amethasone (Lotrisone) creamIndications :Intertrigo APPLY [...] BREAKFAST AND EVENING MEAL 60 tablet 11 03/03/20 25 12:05 PM EST 025 Active Zepbound 12.5 MG/0.5ML solution auto-injectorInd ications:Class 3 severe obesity due to excess calories with serious comorbidity and body mass index (BMI) of 40.0 to 44.9 in adult (HCC) INJECT ONE PEN (=12.5MG) SUBCUTANEOUSLY ONCE A [...] SUGAR TWICE DAILY 100 each 025 Active naloxone (Narcan) 4 mg/0.1 mL nasal sprayIndications :Chronic midline low back pain with right-sided sciatica FOR SUSPECTED OPIOID OVERDOSE. SPRAY 0.1mL IN ONE NOSTRIL. REPEAT IN ALTERNATE NOSTRIL 2-3 MINUTES IF NEEDED. SEEK MEDICAL ATTENTION IMMEDIATELY EVEN IF PATIENT RESPONDS. 2 each 025 Active fexofenadine (Mylene) 180 MG tabletIndication [...] MOUTH EVERY MORNING 90 tablet 025 Active amitriptyline (Elavil) 50 MG tabletIndication s:Migraine without aura, not refractory TAKE 1 TABLET BY MOUTH AT BEDTIME 30 tablet 3 025 Active citalopram (CeleXA) 20 MG tabletIndication s:Moderate episode of recurrent major depressive disorder (CMS/HCC) (HCC) TAKE 1 TABLET BY MOUTH EVERY MORNING 30 tablet 025 Active DULoxetine (Cymbalta) [address] capsuleIndicaticecilia ns:Moderate episode of recurrent major depressive disorder (CMS/HCC) (HCC) TAKE 1 CAPSULE BY MOUTH EVERY MORNING 30 capsule 025 Active metFORMIN (Glucophage) 500 MG tabletIndication s:Prediabetes TAKE 1 TABLET BY MOUTH TWICE DAILY IN THE MORNING AND AT BEDTIME WITH FOOD 180 tablet 1 025 Active fluticasone (Flonase) 50 MCG/ACT nasal sprayIndications :Allergic conjunctivitis, unspecified laterality INSTILL 2 SPRAYS IN EACH NOSTRIL ONCE DAILY IN THE MORNING 48 g 1 025 Active lidocaine (Lidoderm) 5 % patchIndications :Rib pain on right side Apply 1 patch topically Once per day. Remove & discard patch within 12 hours or as directed by MD. 30 patch 1 025 Active Tirzepatide-Weig ht Management (Zepbound) 15 MG/0.5ML solution auto-injectorInd ications:Class 3 severe obesity due to excess calories with serious comorbidity and body mass index (BMI) of 40.0 to 44.9 in adult (HCC) Inject 0.5 mL (15 mg) under the skin 1 (one) time per week. 2 mL 3 02/21/20 25 11:34 AM EST 025 Active gabapentin (Neurontin) 600 MG tabletIndication s:Chronic toe pain, left foot TAKE 1 TABLET BY MOUTH TWICE DAILY IN THE MORNING AND IN THE EVENING 60 tablet 1 025 Active polyvinyl alcohol (Liquifilm Tears) 1.4 % ophthalmic solutionIndicati ons:Dry eye syndrome of bilateral lacrimal glands PLACE 1 DROP IN EACH EYE THREE TIMES DAILY IN THE MORNING, AT NOON, AND AT BEDTIME NEEDED FOR DRY EYES 15 mL 1 025 Active D3 Super Strength 50 MCG (2000 UT) capsuleIndicatio ns:Vitamin D deficiency, unspecified TAKE 1 CAPSULE BY MOUTH EVERY MORNING 90 capsule 1 03/03/20 25 12:05 PM EST 025 Active meclizine (Antivert) 25 MG tabletIndication s:Vertigo TAKE 1 TABLET BY MOUTH THREE TIMES DAILY 90 tablet 2 025 Active Ventolin HFA 108 (90 Base) MCG/ACT inhalerIndicatio ns:Mild intermittent asthma without complication INHALE 2 PUFFS BY MOUTH EVERY 4 TO 6 HOURS NEEDED 18 g 025 Active furosemide (Lasix) 20 MG tablet 025 Active predniSONE (Deltasone) 20 MG tablet 025 Active albuterol (2.5 MG/3ML) 0.083% nebulizer solutionIndicati ons:Mild persistent asthma without complication INHALE 1 AMPULE USING A NEBUILZER THREE TIMES DAILY NEEDED FOR WHEEZING OR SHORTNESS OF BREATH 90 mL 1 025 Active lidocaine-priloc sheryl (Emla) 2.5-2.5 % creamIndications :Long-term current use of opiate analgesic APPLY THIN LAYER TOPICALLY 3 TO 4 TIMES DAILY NEEDED FOR PAIN 30 g 2 03/03/20 25 12:05 PM EST Active Calcium Carb-Cholecalcif terri (Oyster Shell Calcium w/D) 500-5 MG-MCG tabletIndication s:Polyarthralgia TAKE 1 TABLET BY MOUTH EVERY MORNING 90 tablet 1 025 Active oxyCODONE (Roxicodone) 5 MG immediate release tabletIndication s:Chronic midline low back pain with right-sided sciatica,Polyart hralgia TAKE 1 TABLET BY MOUTH EVERY TWELVE HOURS NEEDED FOR SEVERE PAIN 56 tablet Active albuterol (Ventolin HFA) 108 (90 Base) MCG/ACT inhalerIndicatio ns:Mild intermittent asthma without complication INHALE 2 PUFFS BY MOUTH EVERY 4 TO 6 HOURS NEEDED 18 g 025 2024 Discontinued Calcium Carb-Cholecalcif terri (Oyster Shell Calcium w/D) 500-5 MG-MCG tabletIndication s:Polyarthralgia TAKE 1 TABLET BY MOUTH EVERY MORNING 90 tablet 1 025 2024 Discontinued lidocaine-priloc sheryl (Emla) 2.5-2.5 % creamIndications :Long-term current use of opiate analgesic Apply thin layer by topical route 3-4 times daily as needed for pain 30 g 2 025 2024 Discontinued oxyCODONE (Roxicodone) 5 MG immediate release tabletIndication s:Chronic midline low back pain with right-sided sciatica,Polyart hralgia Take 1 tablet (5 mg) by mouth every 12 (twelve) hours if needed for severe pain for up to 28 days. Do not start before January 17, 2025. 56 tablet 025 2024 Discontinued albuterol (2.5 MG/3ML) 0.083% nebulizer solutionIndicati ons:Mild persistent asthma without complication INHALE 1 AMPULE USING A NEBULIZER THREE TIMES DAILY DIRECTED 90 mL 1 02/21/20 25 11:34 AM EST 025 2024 Discontinued oxyCODONE (Roxicodone) 5 MG immediate release tabletIndication s:Chronic midline low back pain with right-sided sciatica,Polyart hralgia TAKE 1 TABLET BY MOUTH EVERY TWELVE HOURS NEEDED FOR SEVERE PAIN FOR UP TO 28 DAYS 56 tablet 025 2024 Discontinued Active Problems Problem Noted Date Diagnosed Date Contusion of foot, left 02/05/2025 Contusion of head 02/05/2025 Epigastric pain 02/05/2025 Sacroiliac joint dysfunction of both sides 02/05 Strain of lumbar region 02/05/2025 UTI (urinary tract infection) 02/05/2025 Body mass index (BMI) 40.0-44.9, adult Severe obesity (CMS/HCC) 02/05/2025 Fall 02/05/2025 Migraine without aura 02/05/2025 Migraine 02/05/2025 GABRIELA (obstructive sleep apnea) 02/05/2025 Overview (02/05/2025): . Primary osteoarthritis of knees, bilateral 02/05 Chest wall pain 02/05/2025 Colon cancer screening 02/05/2025 Overview (02/05/2025): There is a family history of stomach cancer which caused his at 81, but no known FHX of CRC or polyps. Pre-operative laboratory examination 02/05/2025 Fall (on) (from) other stairs and steps, [...] lumbar anterolisthesis Rx: oxycodone 5mg BID Last SHOWCASE TRIMMER agreement: 04/23/24 Tier: III (Q4-6 months), Dr. [...] 11/27/2023 Abdominal cramping 11/27/2023 Acute diarrhea 11/27/2023 Overview (02/05/2025): Resolved with cessation of tramadol Arthritis of carpometacarpal (CMC) joint of left thumb 11/27/2023 Asthma 11/27/2023 Carpal tunnel syndrome of right wrist 11/27/2023 Colitis 11/27/2023 TOUSSAINT (dyspnea on exertion) 11/27/2023 Environmental allergies 11/27/2023 Erosive esophagitis 11/27/2023 Fracture of distal end of radius 11/27/2023 GERD (gastroesophageal reflux disease) Hepatitis C antibody positive in blood Overview (02/05/2025): 12/2022 negative viral load Hidradenitis suppurativa 11/27/2023 Intrinsic sphincter deficiency (ISD) 11/27/2023 Overactive bladder 11/27/2023 Post-cholecystectomy syndrome 11/27/2023 Overview (02/05/2025): on CT not borne out on biopsy aeb Pre-op examination 11/27/2023 Rotator cuff impingement syndrome 11/27/2023 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 - Recommended watching [employer] videos fro stretching and exercises that can [...] organization. Date Type Department Care Team Description 03/12/2025 Refill [facility] MED [facility] PED[facility] [address] [place] [address] Chelsi Kauffman MD Chronic midline low back pain with right-sided sciatica; Polyarthralgia 03/09/2025 Refill [facility] [address] [place] [address] Chelsi Kauffman MD Polyarthralgia 02/26/2025 Refill [facility] [address] [place] [address] Mackenzie Whatley, MYRIAM Long-term current use of opiate analgesic 02/20/2025 Refill [facility] [address] [place] [address] Chelsi Kauffman MD Mild persistent asthma without complication 02/12/2025 10:00 AM EST Immunization [facility] [address] [place] [address] Encounter for immunization 02/12/2025 Travel 02/12/2025 Refill [facility] [address] [place] [address] Chelsi Kauffman MD Chronic midline low back pain with right-sided sciatica; Polyarthralgia; Mild intermittent asthma without complication 02/06/2025 Refill [facility] [address] [place] [address] Chelsi Kauffman MD Vertigo 02/05/2025 11:00 AM EDT Office Visit [facility] ADULT DENTAL [address] [place] [address] Granados-Cowan, Aurora, DDS Ill-fitting dentures (Primary Dx) 02/05/2025 Refill [facility] [address] [place] [address] Chelsi Kauffman MD Vitamin D deficiency, unspecified; Vertigo 02/03/2025 Refill [facility] [address] [place] [address] Chelsi Kauffman MD Mild persistent asthma without complication 01/29/2025 11:30 AM EDT Office Visit [facility] OPTOMETRY [address] [place] [address] Rito, Kennedi, OD Presbyopia of both eyes (Primary Dx) 01/29/2025 Travel 01/21/2025 Orders Only GENERIC EXTERNAL DATA DEPARTMENT Provider, Generic External Data 01/18/2025 Refill [facility] [address] [place] [address] Chelsi Kauffman MD Dry eye syndrome of bilateral lacrimal glands 01/16/2025 Refill [facility] [address] [place], [place] [phone] Chelsi Kauffman MD Chronic midline low back pain with right-sided sciatica; Polyarthralgia 01/08/2025 Refill [facility] [address] [place] [address] Chelsi Kauffman MD Chronic toe pain, left foot 12/24/2024 11:15 AM EDT Office Visit [facility] [address] [place] [address] Chelsi Kauffman MD Fall (on) (from) other stairs and steps, initial encounter; Rib pain on right side; Class 3 severe obesity due to excess calories with serious comorbidity and body mass index (BMI) of 40.0 to 44.9 in adult 12/24/2024 Travel 12/23/2024 Telephone [facility] [address] [place] [address] Chelsi Kauffman MD chart prep 12/20/2024 Telephone [facility] [address] [place] [address] Chelsi Kauffman MD Durable Medical Equipment ([facility] One Care: Multiple Items) 12/19/2024 Telephone [facility] [address] [place] [address] Chelsi Kauffman MD Nurse Triage 12/19/2024 Refill [facility] [address] [place] [address] Chelsi Kauffman MD Chronic midline low back pain with right-sided sciatica; Polyarthralgia 12/17/2024 9:45 AM EDT Office Visit [address] [address] Mackenzie Whatley FNP Anterolisthesis of lumbar spine (Primary Dx); Long-term current use of opiate analgesic 12/17/2024 Travel 12/16/[address] [phone] Chelsi Kauffman MD Preventative health care; Hypertension, unspecified type from Last 3 Months Immunizations Immunization Administration Dates Next Due HepB-CpG 09/26/2023,08/15/2023 Influenza Injectable Quadriv alant Preservative Free IIV4 MDCK 01/18/2022 Influenza injectable quadriv alent preservative free 02/06/2023 Influenza, seasonal, injecta ble, preservative free 02/12/2025,01/17/2024 Pfizer Covid-19 Vaccine 12+ 02/16/2024,0 11/17/2021,06/02/2021,2020,11/03/2020 Pfizer [...] Visit [facility] [address] [place] [address] 05/16/2025 9:30 AM EST Office Visit [facility] ADULT DENTAL [address] [place] [address] Alireza, Nicole [address] [place] [address] Health Maintenance Due Date Last Done Comments CT Colonography 1965 FIT DNA/Cologuard 1965 FIT 1965 FOBT 1965 Sigmoidoscopy 1965 Alcohol/Substance Use Screening 1976 RSV Patients and Patients Aged 60 years or older (1 - Risk 50-74 years 1-dose series) 2014 Colonoscopy 08/26/2023 08/25/2022, 10/07/2020 Colorectal Cancer Screening 08/26/2023 COVID-19 Vaccine ( season) 2024 02/16/2024, 11/17/2021, 11/17/2021, Additional history exists Depression Screening 01/16/2025 01/17/2024, 01/17/20 24 Dental Oral Exam 02/09/2025 08/08/2024, , 02/24/2023, Additional history exists Dental Prophylaxis 02/09/2025 08/08/2024, 0 10/31/2023, 02/24/2023, Additional history exists Mammogram 03/01/2025 03/01/2024, 09/08, 09/23/2021, Additional history exists SDOH Screening 06/13/2025 06/13/2024 Diabetes: Hemoglobin A1C 07/10/2025 025, 01/17/2024, 08/19/2022, Additional history exists Dental X-Ray: Bitewings 08/09/2025 08/09/19 25, 02/24/2023, 11/23/2021, Additional history exists Disability Screening 09/23/2025 09/23/2024 Tobacco Screening 02/17/2026 02/17/2025 Dental X-Ray: Full Mouth 02/25/2026 02/24/2023, 12/09/2018 [...] Blood Pressure On track( 12:41 PM EDT) Alena Dowd Blood Pressure < 140/90 Blood Pressure 124/82(2024 11:29 AM EDT) No Alena Cerda Procedures Procedure Name Priority Date/Time Associated Diagnosis Comments DENTURE ADJUSTMENT Routine 02/05/2025 11 :00 AM EDT Ill-fitting dentures HEMATOXYLIN AND EOSIN STAIN Routine 01/21/2025 12:44 PM EDT GLUCOSE, WHOLE BLOOD Routine 01/21/2025 11:[address] ABDOMEN PELVIS WO CONTRAST Routine 12/18/2024 [...] Recently Relevant to Health Maintenance Results * Hematoxylin and Eosin Stain (01/21/2025 12:44 PM EDT) 01/21/2025 12:4 4 PM EDT 01/21/2025 1:40 PM EDT [facility] - 01/23/2025 10:49 AM EDT ----- ------- Name: Chelsi Connors Age/Sex: 59/F : 1965 [facility]#: [id number] Unit#: [id number] Attend Dr: Domi Miller MD Re01/21/25 Status: [facility] Location: [facility] Disch: ----- ------- SPEC : [id number] RECD: 01/21/25 STATUS: [facility] NUM: [id number] HARVINDER: 01/21/[address] [facility] DR: Domi Miller MD ENTERED: 01/21/25 SP TYPE: Surgical OTHR DR: Chelsi Kauffman MD ORDERED: HE Stain/, Gross Micro L4/7, IHC/2, Special st. 2/, H. pylori/2, AB/PAS/6 Diagnosis A. Stomach, antrum lesser curvature, biopsy: Antral-type mucosa with mild chronic inactive inflammation; no Helicobacter organisms seen. B. Stomach, antrum greater curvature, biopsy: Antral-type mucosa with mild chronic inactive inflammation; no Helicobacter organisms seen. C. Stomach, incisura, biopsy: Antral-type mucosa with mild chronic inactive inflammation; no Helicobacter organisms seen. D. Stomach, body lesser curvature, biopsy: Oxyntic mucosa with mild chronic inactive inflammation; no Helicobacter organisms seen. E. Stomach, body greater curvature, biopsy: Oxyntic mucosa with mild chronic inactive inflammation; no Helicobacter organisms seen. F. GE junction, biopsy: - Cardiac-type mucosa with moderate chronic active inflammation; no intestinal metaplasia seen. - Squamous epithelium within normal limits. G. Colon, ascending, polypectomy: Tubular adenoma; negative for high-grade dysplasia or carcinoma. Clinical History Pre-Op Dx: GERD, h/o polyps Post-Op Dx: Hiatal hernia, diverticulosis, colon polyp Microscopic Description A-G. Microscopic sections examined. No metaplastic changes are seen, supported by AB/PAS stains (A, B, C, D, E and F); no Helicobacter organisms are seen, supported by H. pylori immunostain (A and E). Material Received A. Antrum lesser curvature B. Antrum greater curvature C. Incisura D. Body lesser curvature E. Body greater curvature F. GE junction r/o Nguyen's CONTINUED ON NEXT PAGE ----- ------- Name: Chelsi Connors Age/Sex: 59/F : 1965 Unit#: [id number] Attend Dr: Domi Miller MD Re01/21/25 Status: [facility] Location: [facility] Disch: ----- ------- SPEC : [id number] RECD: 01/21/25 STATUS: [facility] NUM: [id number] HARVINDER: 01/21/[address] [facility] DR: Domi Miller MD ENTERED: 01/21/25 SP TYPE: Surgical OTHR DR: Chelsi Kauffman MD ORDERED: HE Stain/, Gross Micro L4/, IHC/2, Special st. 2, H. pylori/2, AB/PAS/ Material Received (Continued) G. Ascending colon polyp Gross Description Received in 7 parts. A. Received in formalin labeled antrum lesser curvature are 4 fragments of flores-white soft tissue measuring 0.3-0.4 cm in greatest dimension which are wrapped in lens paper and entirely submitted for microscopic examination, 4 pieces in cassette A. B. Received in formalin labeled antrum greater curvature are 3 fragments of flores-white soft tissue measuring 0.3-0.4 cm in greatest dimension which are wrapped in lens paper and entirely submitted for microscopic examination, 3 pieces in cassette B. C. Received in formalin labeled incisura are 3 fragments of flores-white soft tissue measuring 0.2-0.4 cm in greatest dimension which are wrapped in lens paper and entirely submitted for microscopic examination, 3 pieces in cassette C. D. Received in formalin labeled body lesser curvature are 4 fragments of pink-flores soft tissue, each measuring 0.3 cm in greatest dimension, which are wrapped in lens paper and entirely submitted for microscopic examination, 4 pieces in cassette D. E. Received in formalin labeled body greater curvature are 2 fragments of pink-flores soft tissue measuring 0.3 and 0.5 cm in greatest dimension which are wrapped in lens paper and entirely submitted for microscopic examination, 2 pieces in cassette E. F. Received in formalin labeled GE junction R/0 Nguyen's are 5 fragments of pink white soft tissue measuring 0.3-0.4 cm in greatest dimension which are wrapped in lens paper and entirely submitted for microscopic examination, 5 pieces in cassette F. G. Received in formalin labeled ascending colon polyp is a fragment of pink-flores soft tissue measuring 0.8 cm in greatest dimension which is wrapped in lens paper and entirely submitted for microscopic examination, 1 piece in cassette G. ([facility]) Special studies ordered and performed: Immunostain for H. pylori on A and E; AB/PAS stains on A, B, C, D, E and F IHC S/NG Disclaimer NOTE: Unless otherwise stated, all tissue is formalin-fixed and paraffin-embedded. Some or all of the immunohistochemical tests reported herein may have been developed and their performance characteristics determined by [facility]. They have not been cleared or approved by the U.S. Food and Drug Administration (FDA). However, the FDA CONTINUED ON NEXT PAGE ----- ------- Name: Jeovanny AmandaChelsi Age/Sex: 59/F : 1965 Unit#: [id number] Attend Dr: Domi Miller MD Re01/21/25 Status: [facility] Location: [facility] Disch: ----- ------- SPEC : [id number] RECD: 01/21/25 [facility] NUM: [id number] HARVINDER: 01/21/[address] [facility] DR: Domi Miller MD ENTERED: 01/21/25 SP TYPE: Surgical OTHR DR: Chelsi Kauffman MD ORDERED: HE Stain/, Gross Micro L4/7, IHC/2, Special st. 2/6, H. pylori/2, AB/PAS/6 IHC S/NG Disclaimer (Continued) has determined that such clearance or approval is not necessary. This laboratory is certified under the Clinical Laboratory Improvement Amendments of 1988 (CLIA) as qualified to perform high complexity clinical laboratory testing. Copies To: Chelsi Kauffman MD [address] [address] Domi Miller MD [facility] [address] [place] [address] [id number] [email or web address] ------- Signed (signature on file) Dc Shaffer MD 01/23/25 1049 ----- ------- END OF REPORT Generic External Data Provider LAB BLOOD ORDERAB LES Final Result Performing Organization Address [facility] Co de Phone Number [facility] [address] [place] [phone] * Glucose, Whole Blood (01/21/2025 11:08 AM EDT) [facility] Glucose, Whole Blood 106 60 - 115 mg/dL [facility] Comment:METER #: [id number] 01/21/2025 11:0 8 AM EDT 01/21/2025 11:15 AM EDT Generic External Data Provider LAB BLOOD ORDERAB LES Final Result Performing Organization Address [facility] Co de Phone Number [facility] [address] [place] [phone] * CT Cervical Spine w/o Contrast (12/18/2024 12:48 PM EDT) Anatomical Region Laterality Modality Spine, C-spine Computed Tomogra phy 12/18/2024 12:4 8 PM EDT Narrative 12/18/2024 4:01 PM EDT [address] [address] [address] Scan Report Signed Patient: Chelsi Connors MR#: [id number] : 1965 Acct:[id number] Age/Sex: 59 / F ADM Date: 12/18/24 Loc: HO.ED Attending Dr: Ordering Physician: Isaiah Young MD Date of Service: 12/18/24 Procedure(s): CT cervical spine wo IV con Accession Number(s): [id number] cc: Chelsi Kauffman MD; Isaiah Young MD Report Number: [id number]: Total DLP = 0.00 mGy-cm Reason for [...] 12/18/24 1559 DD/ 1248 TD/TT: 12/18/24 1328 Taker [employer] Drying Kiln: Procedure Note Donotleopoldointerpreter, Image - 12/18/[address] [place] [address] [address] Scan Report Signed Patient: Chelsi Connors [facility]#: [id number] : 1965Acct:[id number] Age/Sex: 59 / FADM Date: 12/18/24 Loc: HO.ED Attending Dr: Ordering Physician: Isaiah Young MD Date of Service: 12/18/24 Procedure(s): CT cervical spine wo IV con Accession Number(s): [id number] cc: Chelsi Kauffman MD; Isaiah Young MD Report Number: [id number]: Total DLP = 0.00 mGy-cm Reason for [...] Frantz Saenz MD 12/18/2024 03:59 PM EDT RP Dictated By: Frantz Aden MD Signed By: <Electronically signed by Frantz Rayo MDin OV> 12/18/24 1559 DD/ 1248 TD/TT: 12/18/24 1328 Taker Off Drying Kiln: [facility] External Provider IMG CT PROCEDURES Final Result * CT Chest w/o Contrast (12/18/2024 12:48 PM EDT) Anatomical Region Laterality Modality Body, Chest Computed Tomogra phy 12/18/2024 12:4 8 PM EDT Narrative 12/18/2024 4:14 PM EDT [place] [address] CT Scan Report Signed Patient: Chelsi Connors MR#: [id number] : 1965 Acct:[id number] Age/Sex: 59 / F ADM Date: 12/18/24 Loc: HO.ED Attending Dr: Ordering Physician: Isaiah Young MD Date of Service: 12/18/24 Procedure(s): CT chest wo IV con Accession Number(s): [id number] cc: Chelsi Kauffman MD; Isaiah Young MD Report Number: [id number]: Total DLP = 0.00 mGy-cm Reason for [...] Thyroid lobes are not included in the cprvr-[id number]. The heart size and the great vessels [...] Marvin Duong MD 12/18/2024 04:11 PM EDT RP Dictated By: Marvin Duong MD Signed By: <Electronically signed by Marvin Duong MD in OV> 12/18/24 1611 DD/ 1248 TD/TT: 12/18/24 1328 Taker Off Drying Kiln: [facility] Procedure Note Donotuseinterpreter, Image - 12/18/[address] [place] [address] [address] Scan Report Signed Patient: Chelsi Connors DMR#: [id number] : 1965Acct:[id number] Age/Sex: 59 / FADM Date: 12/18/24 Loc: HO.ED Attending Dr: Ordering Physician: Isaiah Young MD Date of Service: 12/18/24 Procedure(s): CT chest wo IV con Accession Number(s): [id number] cc: Chelsi Kauffman MD; Isaiah Young MD Report Number: [id number]: Total DLP = 0.00 mGy-cm Reason for [...] Thyroid lobes are not included in the bqylo-dg-mexw. The heart size and the great vessels [...] 12/18/24 1611 DD/ 1248 TD/TT: 12/18/24 1328 Taker Off Drying Kiln: NICO [facility] [facility] External Provider IMG CT PROCEDURES Final Result * CT Head w/o Contrast (12/18/2024 12:48 PM EDT) Anatomical Region Laterality Modality Head, Neck Computed Tomogra phy 12/18/2024 12:4 8 PM EDT Narrative 12/18/2024 4:04 PM EDT [address] [address] [address] Scan Report Signed Patient: Chelsi Connors MR#: [id number] : 1965 Acct:[id number] Age/Sex: 59 / F ADM Date: 12/18/24 Loc: HO.ED Attending Dr: Ordering Physician: Isaiah Young MD Date of Service: 12/18/24 Procedure(s): CT head/brain wo IV con Accession Number(s): [id number] cc: Chelsi Kauffman MD; Isaiah Young MD Report Number: [id number]: Total DLP = 0.00 mGy-cm Reason for [...] 12/18/24 1602 DD/ 1248 TD/TT: 12/18/24 1328 Taker Off Drying Kiln: Procedure Note Donotuseinterpreter, Image - 12/18/[address] [place] [address] [address] Scan Report Signed Patient: Chelsi Connors DMR#: [id number] : 1965Acct:[id number] Age/Sex: 59 / FADM Date: 12/18/24 Loc: HO.ED Attending Dr: Ordering Physician: Isaiah Young MD Date of Service: 12/18/24 Procedure(s): CT head/brain wo IV con Accession Number(s): [id number] cc: Chelsi Kauffman MD; Isaiah Young MD Report Number: [id number]: Total DLP = 0.00 mGy-cm Reason for [...] 12/18/24 1602 DD/ 1248 TD/TT: 12/18/24 1328 Taker Off Drying Kiln: [facility] External Provider IMG CT PROCEDURES Final Result * CT Abdomen Pelvis w/o Contrast (12/18/2024 12:48 PM EDT) Anatomical Region Laterality Modality Body, Pelvis, Abdomen Computed T omography 12/18/2024 12:4 8 PM EDT Narrative 12/18/2024 4:14 PM EDT [address] [address] [address] Scan Report Signed Patient: Chelsi Connors MR#: [id number] : 1965 Acct:[id number] Age/Sex: 59 / F ADM Date: 12/18/24 Loc: HO.ED Attending Dr: Ordering Physician: Isaiah Young MD Date of Service: 12/18/24 Procedure(s): CT abdomen pelvis wo IV con Accession Number(s): [id number] cc: Chelsi Kauffman MD; Isaiah Young MD Report Number: [id number]: Total DLP = 2721.00 mGy-cm Reason for [...] Thyroid lobes are not included in the hpwha-ls-szfs. The heart size and the great vessels [...] Marvin Duong MD 12/18/2024 04:11 PM EDT RP Dictated By: Marvin Duong MD Signed By: <Electronically signed by Marvin Duong MD in OV> 12/18/24 1611 DD/ 1248 TD/TT: 12/18/24 1328 Taker Off Drying Kiln: [facility] Procedure Note Donotuseinterpreter, Image - 12/18/[address] [place] [address] [address] Scan Report Signed Patient: UpChelsi Rapp [facility]#: [id number] : 1965Acct:[id number] Age/Sex: 59 / FADM Date: 12/18/24 Loc: HO.ED Attending Dr: Ordering Physician: Isaiah Young MD Date of Service: 12/18/24 Procedure(s): CT abdomen pelvis wo IV con Accession Number(s): [id number] cc: Chelsi Kauffman MD; Isaiah Young MD Report Number: [id number]: Total DLP = 2721.00 mGy-cm Reason for [...] Thyroid lobes are not included in the xcvsy-ev-frpe. The heart size and the great vessels [...] Marvin Duong MD 12/18/2024 04:11 PM EDT RP Dictated By: Marvin Duong MD Signed By: <Electronically signed by Marvin Duong MD in OV> 12/18/24 1611 DD/ 1248 TD/TT: 12/18/24 1328 Taker Off Drying Kiln: NICO [facility] External Provider IMG CT PROCEDURES Final [...] - 12/17/2024 10:29 AM EDT UTOX cup Lot#[id number] Exp. 01/14/26 Internal Pass Control Chelsi Reece MD POINT OF CARE TEST EN TER/EDIT ORDERABLES Final Result * Hemoglobin A1c (07/10/2024 12:13 PM EDT) Hemoglobin A1c 5.7 <6.0 % [facility] Comment:Hemoglobin A1C Refer ence Range Adults: 4.8 - 6.0 % Non diabetic: < 6.0 % Goal: < 7.0 %Additional Action Suggested: > 8.0 %Note: Hemoglobin A1c results are invalid for patients with abnormal amounts of HbF. Blood transfusions may impact the HbA1c concentration in the patient sample. Estimated Average Glucose 117 mg/dL [facility] Comment:eAG = Estimated ave rage glucose which is %A1C expressed asaverage glucose, using the formula of the U5A-PppcqvuKtvycwj Glucose study (ADAG), Diabetes Care, Vol.31,#8,Nov. 2007 Blood Venous blood specimen / Unknown 07/10/2024 12:13 PM EDT 07/10/2024 12:13 PM EDT us Chelsi Reece MD LAB BLOOD ORDERABLES Final Result [facility] [address] [place] [phone] * (ABNORMAL) Lipid Panel, Standard (07/10/2024 12:13 PM EDT) Triglycerides 167(H) <150 mg/dL [facility] Comment:Desirable Triglyceri de: less than 150 mg/dLBorderline High Triglyceride 150-199 mg/dLHigh Triglyceride: 200-499 mg/dLVery High Triglyceride: greater than or equal to 5OO mg/dL Cholesterol 163 <200 mg/dL [facility] Comment:Desirable Cholestero l: less than 200 mg/dLBorderline High Cholesterol: 200-239 mg/dLHigh Cholesterol: greater than 239 mg/dL LDL Cholesterol Calculated 90 <100 mg/dL [facility] Comment:Desirable LDL: less than 100 mg/dLNear Optimal/Above Optimal LDL: 110- 129 mg/dLBorderline High LDL: 130-159 mg/dLHigh LDL: 160-189 mg/dLVery High LDL: greater than or equal to 190 mg/dL HDL Cholesterol 40(L) >40 mg/dL [facility] Comment:Desirable HDL: great er than 40 mg/dL Note: This HDL assay may give artificially low results in patients with liver disease. Blood Venous blood specimen / Unknown 07/10/2024 12:13 PM EDT 07/10/2024 12:13 PM EDT us Chelsi Reece MD LAB BLOOD ORDERABLES Final Result [facility] [address] [place] [phone] [phone] * BI Mammogram Screening Tomosynthesis Bilateral (03/01/2024 10:20 AM EST) Anatomical Region Laterality Modality Breast Bilateral Mammography 03/01/2024 10:2 0 AM EST Narrative 03/12/2024 10:52 AM EST [address] [place] [address] Mammography Report Signed Patient: Chelsi Connors MR#: [id number] : 1965 Acct:[id number] Age/Sex: 58 / F ADM Date: 03/01/24 Loc: HO.MAMMO Attending Dr: Chelsi Reece MD Ordering Physician: Chelsi Kauffman MD Results: 1Negative Date of Service: 03/01/24 Follow Up: 1 Year From Orig inal Mammogram Procedure(s): MM tomosynthesis screening BI Accession Number(s): [id number] cc: Chelsi Kauffman MD; Dc Bourne MD [...] 03/12/24 1049 DD/ 1020 TD/TT: 03/01/24 1045 Taker Off Drying Kiln: Procedure Note Donotuseinterpreter, Image - 03/12/2024 [facility] [address] [place] [address] Mammography Report Signed Patient: Chelsi Connors DMR#: [id number] : 1965Acct:[id number] Age/Sex: 58 / FADM Date: 03/01/24 Loc: HO.MAMMO Attending Dr: Chelsi Reece MD Ordering Physician: Chelsi Kauffman MDResults: 1Negative Date of Service: 03/01/24Follow Up: 1 Year From Orig inal Mammogram Procedure(s): MM tomosynthesis screening BI Accession Number(s): [id number] cc: Chelsi Kauffman MD; Dc Bourne MD [...] 03/12/24 1049 DD/ 1020 TD/TT: 03/01/24 1045 Taker Off Drying Kiln: us Chelsi Reece MD IMG BI PROCEDURES Fin al Result * Image-Guided Pap with Age-Based Screening??with CT/NG,??Trichomonas (07/04/2023 3:39 PM EDT) Trichomonas (NAAT) NOT DETECTED NOT DETECTED [facility] Comment:The analytical perfo rmance characteristics of thisassay have been determined by [employer]. Themodifications have not been cleared or approved bythe FDA. This assay has been validated pursuant to theCLIA regulations and is used for clinical purposes.For additional information, please refer tohttp://education.Picocent/faq/Trichomonastma(This link is being provided for information/educational purposes only.)THIS TEST WAS PERFORMED AT:[address] [place] [phone] HANEY MD CTNG Ref Lab NOT DETECTED NOT DETECTED [facility] NG Ref Lab NOT DETECTED NOT DETECTED [facility] Pap Vial Vaginal structure / Unknown 07/04/2023 3:39 PM EDT 07/10/2023 8:55 AM EDT Narrative [facility] - 07/11/2023 8:28 PM EDT Collection Date: [id number]: Vagina us Chelsi Reece MD LAB CYTOLOGY ORDERABL ES Final Result [facility] [address] [place] [phone] * HPV mRNA E6/E7 w/Reflex to HPV Genotypes 16, 18/45 (07/04/2023 3:39 PM EDT) HPV nRNA E6/E7 Not Detected Not Detected [facility] Comment:Methodology: Transcr iption-Mediated AmplificationThis assay detects E6/E7 viral messenger RNA (mRNA) from 14high-risk HPV types (16,18,31,33,35,39,45,51,52,56,58,59,66,68).Cervical sources are required for HPV testing.If a vaginal source from a patient who has had atotal hysterectomy with removal of cervix wassubmitted, please contact the testing laboratoryfor alternative testing options.For additional information, please refer tohttp://education.Picocent/faq/GTE354e0(This link if provided for information/educational purposes only.)THIS TEST WAS PERFORMED AT:[address] [place] [phone] HANEY MD HPV mRNA E6/E7 [facility] HPV 16 RNA [facility] HPV 18/45 RNA [facility] 07/04/2023 3:39 PM EDT 07/05/2023 2:00 PM EDT Chelsi Reece MD LAB CYTOLOGY ORDERABL ES Final Result Performing Organization Address [facility]/ZIP Co de Phone Number [facility] [address] [place] [phone] * (ABNORMAL) Hepatitis C Ab (12/21/2022 10:55 AM EDT) Hepatitis C Antibody Reactive( A) Nonreactive [facility] Comment:Presumptive evidence of antibodies to HCV. 12/21/2022 10:5 5 AM EDT 12/21/2022 10:55 AM EDT [facility] External Provider LAB BLO OD ORDERABLES Final Result Performing Organization Address [facility] Co de Phone Number [facility] [address] [place] [phone] * HIV Ab/Ag ([place]) (12/21/2022 10:55 AM EDT) HIV AB/AG Nonreactive Nonreactive [facility] Comment:HIV-1 p24 Ag and/or HIV-1/HIV-2 Ab not detected.A test result that is nonreactive does not exclude thepossibility of exposure to or infection with HIV-1 and/orHIV-2. Nonreactive results in this assay for individualswith prior exposure to HIV-1 and/or HIV-2 may be due toantigen and antibody levels that are below the limit ofdetection of this assay.The [employer] HIV Ag/Ab Combo assay result andsupplemental assay results should be interpreted inconjunction with the patient's clinical presentation,history and other laboratory results. If the results areinconsistent with clinical evidence, additional testing issuggested to confirm the result. 12/21/2022 10:5 5 AM EDT 12/21/2022 10:55 AM EDT Generic External Data Provider LAB BLOOD ORDERAB LES Final Result [facility] [address] [place] [phone] * Colonoscopy (08/25/2022) Colonoscopy Normal Normal Narrative Griselda Segal - 08/25/2022 Recommended 1 year follow up due to poor prep Historical Provider HEALTH MAINTENANCE Final Result from Last 3 Months or Most Recently Relevant to Health Maintenance Insurance [facility] ONE CARE < 65 Care Teams [employer] Supervisor Relationship Specialty Start Date End Date Chelsi Kauffman MD [address] [place] [phone] PCP - General Family Medicine 12/20/18
--- OUTSIDE RECORDS SUMMARY | 2025-03-14 12:49 | XMS_ITS | Encounter Summary ---
Author Organization [employer] Address [address] [place] [address] [address] [place] [address] Care Team Providers Care Crm Dynamics Developer Name Role Phone Chelsi Kauffman MD Primary Care Provide r Reason for Visit * Reason Comments Med Refill Encounter Details Date Type Department Care Team ([facility] st Contact Info) Description 03/31/2023 Refill [facility] MEDICINE [address] [place] [address] Chelsi Kauffman MD [address] [place] [address] Dermatitis, seborrheic; Polyarthralgia Social History Tobacco Use [...] Visit [facility] MEDICINE [address] [place] [address] 05/16/2025 9:30 AM EST Office Visit [facility] ADULT DENTAL [address] [place] [address] AlirezaNicole mcelroy [address] [place] [address] documented as of this encounter Visit Diagnoses Diagnosis Dermatitis, seborrheic Unspecified seborrheic dermatitis Polyarthralgia Pain in joint, multiple sites documented in this encounter Additional Health Concerns Assessment Noted Time PHQ-9 Depression Total Score: 24 023 2:25 PM EDT documented as of this encounter Care Teams Crm Dynamics Developer Relationship Specialty Start Date End Date Chelsi Kauffman MD [address] [place] [phone] PCP - General Family Medicine 12/20/18 documented as of this encounter
--- OUTSIDE RECORDS SUMMARY | 2025-03-14 12:49 | XMS_ITS | Encounter Summary ---
Author Organization [employer] Address [address] [facility] 7 [place] [address] Care Team Providers Care Sizing Sprayer Name Role Phone Chelsi Kauffman MD Primary Care Provide r Encounter Details Date Type Department Care Team (Late st Contact Info) Description 05/06/2024 Orders Only [facility] MEDICINE [address] [place], [place] [phone] Mariana Meyer MD [address] [place] [address] Social History Tobacco Use Types Packs/Day Years [...] [facility] MEDICINE [address] [place] [address] 05/16/2025 9:30 AM EST Office Visit [facility] ADULT DENTAL [address] [place] [address] Alireza Nicole [address] [place] [address] documented as of this encounter Goals Goal [...] documented as of this encounter Care Teams Sizing Sprayer Relationship Specialty Start Date End Date Chelsi Kauffman MD [address] [place] [address] PCP - General Family Medicine 12/20/18 documented as of this encounter
--- OUTSIDE RECORDS SUMMARY | 2025-03-14 12:49 | XMS_ITS | Encounter Summary ---
Author Organization [employer] Address [address] [place] [address] 7 [place] [address] Care Team Providers Care Hog Cutter Name Role Phone Chelsi Kauffman MD Primary Care Provide r Reason for Visit * Reason Comments Med Refill Encounter Details Date Type Department Care Team ([facility] st Contact Info) Description 05/06/2024 Refill [facility] MEDICINE [address] [place] [address] Chelsi Kauffman MD [address] [place] [address] Mild intermittent asthma without complication; Asthma in [...] the past 12 months, has t he [employer], oil or [employer] threatened to shut off services in your [...] Description 03/18/2025 9:45 AM EST Office Visit [facility] MEDICINE [address] [place] [address] 05/16/2025 9:30 AM EST Office Visit [facility] ADULT DENTAL [address] [place] [address] Alireza, Nicole [address] [place] [address] documented as of this encounter Goals Goal [...] documented as of this encounter Care Teams Hog Cutter Relationship Specialty Start Date End Date Chelsi Kauffman MD [address] [place] [address] PCP - General Family Medicine 12/20/18 documented as of this encounter
--- OUTSIDE RECORDS SUMMARY | 2025-03-14 12:49 | XMS_ITS | Encounter Summary ---
Author Organization [employer] Address [address] [place] [address] Care Team Providers Care School Fundraising Director Name Role Phone Chelsi Kauffman MD Primary Care Provide r Encounter Details Date Type Department Care Team (Latest Contact Info) Description 09/04/2020 Abstract [facility] CONVERSIONS Dental, Provider, DDS Social History [...] Description 03/18/2025 9:45 AM EST Office Visit [facility] MEDICINE [address] [place] [address] 05/16/2025 9:30 AM EST Office Visit [facility] ADULT DENTAL [address] [place] [address] Alireza, Nicole [address] [place] [address] documented as of this encounter Visit Diagnoses Not on filedocumented in this encounter Care Teams School Fundraising Director Relationship Specialty Start Date End Date Chelsi Kauffman MD [address] [place] [address] PCP - General Family Medicine 12/20/18 documented as of this encounter
--- OUTSIDE RECORDS SUMMARY | 2025-03-14 12:50 | XMS_ITS | Encounter Summary ---
Author Organization [employer] Address [address] [place] [address] [facility] [place] [address] Care Team Providers Care Transcription Specialist Name Role Phone Chelsi Kauffman MD Primary Care Provide r Reason for Visit * Reason Comments Med Refill Encounter Details Date Type Department Care Team ([facility] st Contact Info) Description 03/09/[address] [facility] MEDICINE [address] [place] [address] Chelsi Kauffman MD [address] [place] [address] Polyarthralgia Social History Tobacco Use Types Packs/Day [...] the past 12 months, has t he [employer], oil or water company threatened to [...] AM EST Office Visit [facility] MEDICINE [address] [place] [address] 05/16/2025 9:30 AM EST Office Visit [facility] ADULT DENTAL [address] [place] [address] Nicole Lay [address] [place] [address] documented as of this encounter Goals Goal [...] documented as of this encounter Care Teams Transcription Specialist Relationship Specialty Start Date End Date Chelsi Kauffman MD [address] [place] [phone] PCP - General Family Medicine 12/20/18 documented as of this encounter
== END 2025-03-14 10:43 | disposition home or self-care (01) ==
LOC: HO.MAMMO 10:42
PROVIDERS: PCP Internal Medicine; Visit Provider Internal Medicine
DX: Z12.31 Encounter for screening mammogram for malignant neoplasm of breast (principal)
CPT/HCPCS: 77063; 77067

== ENCOUNTER → 2025-03-14 10:45 | Outpatient (BNV) | payer OTHER, SELFPAY | PROVIDERS: PCP Internal Medicine; Visit Provider Internal Medicine | DX: Z12.31 Encounter for screening mammogram for malignant neoplasm of breast (principal) | CPT/HCPCS: 77063; 77067 ==

== ENCOUNTER 2025-03-24 08:29 | Outpatient (REF) | payer OTHER, SELFPAY ==
--- NOTE | ~2025-03-24 | XR_ITS ---
EXAMINATION: XR KNEE, RIGHT CLINICAL INFORMATION: M25.562 - Pain in right knee COMPARISON: 01/01/2019. TECHNIQUE: AP view bilateral knees standing, lateral and patellofemoral views right knee. FINDINGS: LEFT Knee: No fracture, dislocation, or bone lesion. Mild to moderate medial greater than lateral compartment joint space narrowing. Spurring of the tibial spines. Normal soft tissues. RIGHT Knee: No fracture, dislocation, or suspicious bone lesion. Severe loss of joint space in the medial compartment with [id number] appearance, and medial subluxation of the femur upon the tibia. Moderate to severe changes of osteoarthrosis in the lateral compartment. Spurring of the tibial spines. Abundant marginal spurring in the medial and lateral compartments. Severe patellofemoral arthritis with large marginal osteophytes. No abnormal patellar tilt. There is a probable loose body posteriorly. No definite joint effusion identified. No soft tissue abnormality. XR/XR knee RT 3V IMPRESSION: 1. End-stage tricompartmental osteoarthritis right knee. Electronically signed by: Kalyan Au MD 03/24/2025 11:44 AM EST KIA
--- OUTSIDE RECORDS SUMMARY | 2025-03-25 08:59 | XMS_ITS | Encounter Summary ---
Author Organization [employer] Address [address] [place] [address] 7 [place] [address] Care Team Providers Care Top Precipitator Operator Name Role Phone Chelsi Kauffman MD Primary Care Provide r Reason for Visit * Reason Comments Med Refill Encounter Details Date Type Department Care Team (Late st Contact Info) Description 08/24/2022 Refill [facility] CHC MED & PEDS [address] [place] [address] Mariana Meyer MD [address] [place] [address] Social History Tobacco Use Types Packs/Day Years [...] Upcoming Encounters Date Type Department Care Team ([facility] Contact Info) Description 05/16/2025 9:30 AM EST Office Visit [facility] ADULT DENTAL [address] [place] [address] Derick Layaris [address] [place] [address] 05/20/2025 9:45 AM EST Office Visit [facility] MEDICINE [address] [place] [address] documented as of this encounter Visit Diagnoses Not on filedocumented in this encounter Additional Health Concerns Assessment Noted Time PHQ-9 Depression Total Score: 24 023 2:25 PM EDT documented as of this encounter Care Teams Top Precipitator Operator Relationship Specialty Start Date End Date Chelsi Kauffman MD [address] [place] [address] PCP - General Family Medicine 12/20/18 documented as of this encounter
--- OUTSIDE RECORDS SUMMARY | 2025-03-25 08:59 | XMS_ITS | Encounter Summary ---
Author Organization [employer] Address [address] [place] [address] [place] [address] Care Team Providers Care Mix Technician Name Role Phone Chelsi Kauffman MD Primary Care Provide r Reason for Visit * Reason Comments Med Refill Encounter Details Date Type Department Care Team ([facility] st Contact Info) Description 04/04/2023 Refill [facility] MEDICINE [address] [place] [address] Chelsi Kauffman MD 230 [place] [address] Asthma in adult, moderate persistent, uncomplicated Social [...] Care Team (Late st Contact Info) Description 05/16/2025 9:30 AM EST Office Visit [facility] ADULT DENTAL [address] [place] [address] Alireza Nicole [address] [place] [address] 05/20/2025 9:45 AM EST Office Visit [facility] MEDICINE [address] [place] [address] documented as of this encounter Visit Diagnoses Diagnosis Asthma in adult, moderate persistent, uncomplicated documented in this encounter Additional Health Concerns Assessment Noted Time PHQ-9 Depression Total Score: 24 023 2:25 PM EDT documented as of this encounter Care Teams Mix Technician Relationship Specialty Start Date End Date Chelsi Kauffman MD 230 [place] [address] PCP - General Family Medicine 12/20/18 documented as of this encounter
--- OUTSIDE RECORDS SUMMARY | 2025-03-25 08:59 | XMS_ITS | Encounter Summary ---
Author Organization [employer] Address [address] [place] [address] Care Team Providers Care It Security Manager Name Role Phone Chelsi Kauffman MD Primary Care Provide r Reason for Visit * Reason Comments Med Refill Encounter Details Date Type Department Care Team (Late st Contact Info) Description 08/29/2022 Refill [facility] CHC MED & PEDS [address] [place] [address] Chelsi Kauffman MD [address] [place] [address] Mild intermittent asthma without complication Social History [...] Description 05/16/2025 9:30 AM EST Office Visit [facility] ADULT DENTAL 230 [place] [address] Nicole Lay [address] [place] [address] 05/20/2025 9:45 AM EST Office Visit [facility] MEDICINE [address] [place] [address] documented as of this encounter Visit Diagnoses Diagnosis Mild intermittent asthma without complication documented in this encounter Additional Health Concerns Assessment Noted Time PHQ-9 Depression Total Score: 24 023 2:25 PM EDT documented as of this encounter Care Teams It Security Manager Relationship Specialty Start Date End Date Chelsi Kauffman MD [address] [place] [address] PCP - General Family Medicine 12/20/18 documented as of this encounter
--- OUTSIDE RECORDS SUMMARY | 2025-03-25 08:59 | XMS_ITS | Encounter Summary ---
Author Organization [employer] Address [address] [facility] 7 [place] [address] Care Team Providers Care Defense Travel Administrator Name Role Phone Chelsi Kauffman MD Primary Care Provide r Reason for Visit * Reason Comments Med Refill Encounter Details Date Type Department Care Team ([facility] st Contact Info) Description 03/31/2023 Refill [facility] MED & PEDS [address] [place] [address] Kiana Santos, DO [address] [place] [address] Vitamin D deficiency, unspecified Social History Tobacco [...] Description 05/16/2025 9:30 AM EST Office Visit [facility] ADULT DENTAL 230 [place] [address] Alireza, Nicole [address] [place] [address] 05/20/2025 9:45 AM EST Office Visit [facility] MEDICINE [address] [place] [address] documented as of this encounter Visit Diagnoses Diagnosis Vitamin D deficiency, unspecified documented in this encounter Additional Health Concerns Assessment Noted Time PHQ-9 Depression Total Score: 24 023 2:25 PM EDT documented as of this encounter Care Teams Defense Travel Administrator Relationship Specialty Start Date End Date Chelsi Kauffman MD [address] [place] [address] PCP - General Family Medicine 12/20/18 documented as of this encounter
--- OUTSIDE RECORDS SUMMARY | 2025-03-25 08:59 | XMS_ITS | Encounter Summary ---
Author Organization [employer] Address [address] [place] [address] [facility] [place] [place] [address] Care Team Providers Care Color Weigher Name Role Phone Chelsi Kauffman MD Primary Care Provide r Reason for Visit * Reason Comments Med Refill Encounter Details Date Type Department Care Team ([facility] st Contact Info) Description 03/31/2023 Refill [facility] MEDICINE [address] [place] [address] Chelsi Kauffman MD 230 [place] [address] Dermatitis, seborrheic; Polyarthralgia Social History Tobacco Use [...] Description 05/16/2025 9:30 AM EST Office Visit [facility] ADULT DENTAL [address] [place] [address] Alireza, Nicole [address] [place] [address] 05/20/2025 9:45 AM EST Office Visit [facility] MEDICINE [address] [place] [address] documented as of this encounter Visit Diagnoses Diagnosis Dermatitis, seborrheic Unspecified seborrheic dermatitis Polyarthralgia Pain in joint, multiple sites documented in this encounter Additional Health Concerns Assessment Noted Time PHQ-9 Depression Total Score: 24 023 2:25 PM EDT documented as of this encounter Care Teams Color Weigher Relationship Specialty Start Date End Date Chelsi Kauffman MD 230 [place] [address] PCP - General Family Medicine 12/20/18 documented as of this encounter
--- OUTSIDE RECORDS SUMMARY | 2025-03-25 08:59 | XMS_ITS | Encounter Summary ---
Author Organization [employer] Address [address] [place] [address] Care Team Providers Care Esl Instructional Assistant Name Role Phone Chelsi Kauffman MD Primary Care Provide r Reason for Visit * Reason Comments Med Refill Encounter Details Date Type Department Care Team (Late st Contact Info) Description 09/18/2022 Refill [facility] MEDICINE [address] [place] [address] Chelsi Kauffman MD [address] [place] [address] Asthma in adult, moderate persistent, uncomplicated Social [...] Description 05/16/2025 9:30 AM EST Office Visit [facility] ADULT DENTAL [address] [place] [address] Nicole Lay [address] [place] [address] 05/20/2025 9:45 AM EST Office Visit [facility] MEDICINE [address] [place] [address] documented as of this encounter Visit Diagnoses Diagnosis Asthma in adult, moderate persistent, uncomplicated documented in this encounter Additional Health Concerns Assessment Noted Time PHQ-9 Depression Total Score: 24 023 2:25 PM EDT documented as of this encounter Care Teams Esl Instructional Assistant Relationship Specialty Start Date End Date Chelsi Kauffman MD [address] [place] [address] PCP - General Family Medicine 12/20/18 documented as of this encounter
--- OUTSIDE RECORDS SUMMARY | 2025-03-25 08:59 | XMS_ITS | Encounter Summary ---
Author Organization [employer] Address [address] [place] [address] Care Team Providers Care Client Advisor Name Role Phone Chelsi Kauffman MD Primary Care Provide r Reason for Visit * Reason Onset Date Comments Durable Medical Equipment 07/28/2022 Encounter Details Date Type Department Care Team ([facility] st Contact Info) Description 07/28/[address] [facility] MEDICINE [address] [place] [address] Chelsi Kauffman MD [address] [place] [address] Durable Medical Equipment Social History Tobacco Use [...] [facility] ADULT DENTAL [address] [place] [address] Derick Layaris 230 [place] [address] 05/20/2025 9:45 AM EST Office Visit [facility] MEDICINE [address] [place] [address] documented as of this encounter Visit Diagnoses Not on filedocumented in this encounter Additional Health Concerns Assessment Noted Time PHQ-9 Depression Total Score: 24 023 2:25 PM EDT documented as of this encounter Care Teams Client Advisor Relationship Specialty Start Date End Date Chelsi Kauffman MD 230 [place] [address] PCP - General Family Medicine 12/20/18 documented as of this encounter
--- OUTSIDE RECORDS SUMMARY | 2025-03-25 08:59 | XMS_ITS | Encounter Summary ---
Author Organization [employer] Address [address] [facility] 7 [place] [address] Care Team Providers Care Associate Professor Of Mathematics Name Role Phone Chelsi Kauffman MD Primary Care Provide r Reason for Visit * Reason Comments Med Refill Encounter Details Date Type Department Care Team ([facility] st Contact Info) Description 11/10/2023 Refill [facility] MEDICINE [address] [place] [address] Chelsi Kauffman MD [address] [place] [address] Chronic toe pain, left foot Social History [...] Description 05/16/2025 9:30 AM EST Office Visit [facility] ADULT DENTAL [address] [place] [address] Alireza, Nicole [address] [place] [address] 05/20/2025 9:45 AM EST Office Visit [facility] MEDICINE [address] [place] [address] documented as of this encounter Goals Goal [...] documented as of this encounter Care Teams Associate Professor Of Mathematics Relationship Specialty Start Date End Date Chelsi Kauffman MD [address] [place] [address] PCP - General Family Medicine 12/20/18 documented as of this encounter
--- OUTSIDE RECORDS SUMMARY | 2025-03-25 08:59 | XMS_ITS | Clinical Summary ---
Author Organization [facility] Address [address] [place] [address] Phone Care Team Providers Care Retail Cosmetics Sales Beauty Advisor Name Role Phone Jesse Kauffman MD Primary Care Provide r Allergies No known active allergies Medications acetaminophen (TYLENOL) 500 mg tablet Take 1 tablet (500 mg total) by mouth every 8 (eight) hours if needed. for moderate pain Active albuterol 2.5 mg /3 mL (0.083 %) nebulizer solution INHALE 1 AMPULE USING A NEBULIZER THREE TIMES DAILY DIRECTED 02/05/20 25 Active amitriptyline (ELAVIL) 50 mg tablet Take 1 tablet (50 mg total) by mouth. at bedtime. Active Alcohol Prep Pads pads, medicated USE DIRECTED TO TEST BLOOD SUGAR BEFORE MEALS AND AT BEDTIME AND BEFORE SNACKS 09/05/19 25 Active amLODIPine (NORVASC) 10 mg tablet Take 1 tablet (10 mg total) by mouth 1 (one) time each day in the morning. Active aspirin 81 mg capsule Take 324 mg by mouth. 02/18/20 21 Active blood pressure test kit-large kit USE TO CHECK BLOOD PRESSURE DIRECTED 03/26/20 24 Active butalbital-yahaira taminophen-caf feine (FIORICET, ESGIC) 50-325-40 mg per tablet TAKE 1 TO 2 TABLETS BY MOUTH EVERY 4 HOURS NEEDED 06/27/19 25 Active Oyster Shell Calcium-Vit D3 500 mg-5 mcg (200 unit) per tablet Take 1 tablet by mouth 1 (one) time each day in the morning. 12/17/19 25 Active carvediloL (COREG) 6.25 mg tablet TAKE 1 TABLET BY MOUTH WITH BREAKFAST AND EVENING MEAL 07/09/19 25 Active citalopram (CeleXA) 20 mg tablet Take 1 tablet (20 mg total) by mouth 1 (one) time each day in the morning. Active clonazePAM (KlonoPIN) 0.5 mg tablet Take 1 tablet (0.5 mg total) by mouth 3 (three) times a day if needed. Active clotrimazole-b etamethasone (LOTRISONE) 1-0.05 % cream APPLY 1/2 GRAM TOPICALLY TO AFFECTED AREA(S) TWICE DAILY FOR 28 DAILY 05/29/19 25 Active diclofenac (CATAFLAM) 50 mg tablet Take 1 tablet (50 mg total) by mouth 2 times daily. 02/15/20 24 Active dicyclomine (BENTYL) 20 mg tablet Take 1 tablet (20 mg total) by mouth 3 times daily. 01/10/20 23 Active duloxetine HCl (CYMBALTA ORAL) Take by mouth. 02/18/20 21 Active esomeprazole (NexIUM) [address] capsule Take 1 capsule (40 mg total) by mouth. at bedtime Active famotidine (PEPCID) 40 mg tablet Take 1 tablet (40 mg total) by mouth. at bedtime. Active fexofenadine (GORDON) 180 mg tablet TAKE 1 TABLET BY MOUTH EVERY MORNING NEEDED FOR ALLERGIES 10/09/19 25 Active fluticasone propionate (FLONASE) 50 mcg/actuation nasal spray INSTILL 2 SPRAYS IN EACH NOSTRIL ONCE DAILY IN THE MORNING 12/07/19 25 Active furosemide (LASIX) 20 mg tablet 02/08/20 25 Active gabapentin (NEURONTIN) 600 mg tablet TAKE [...] DIRECTED TO TEST BLOOD SUGAR TWICE DAILY 01/15/20 25 Active lidocaine (LIDODERM) 5 % patch Apply 1 patch topically daily. 12/25/19 25 Active losartan (COZAAR) 100 mg tablet Take 1 tablet (100 mg total) by mouth 1 (one) time each day in the morning. Active meclizine (ANTIVERT) 25 mg tablet Take 1 tablet (25 mg total) by mouth. 02/07/20 25 Active metFORMIN (GLUCOPHAGE) 500 mg tablet TAKE 1 TABLET BY MOUTH TWICE DAILY IN THE MORNING AND AT BEDTIME WITH FOOD Active mirabegron (Myrbetriq) 50 mg 24 hr tablet Take 1 tablet (50 mg total) by mouth daily. 07/14/19 24 Active ondansetron (ZOFRAN) 4 mg tablet TAKE 2 TABLETS BY MOUTH EVERY 8 HOURS NEEDED FOR NAUSEA AND VOMITING FOR UP TO 7 DAYS 05/31/19 25 Active polyvinyl alcohol (ARTIFICIAL TEARS) 1.4 % ophthalmic solution PLACE 1 DROP IN EACH EYE THREE TIMES DAILY IN THE MORNING, AT NOON, AND AT BEDTIME NEEDED FOR DRY EYES 01/21/20 25 Active Wegovy 0.5 mg/0.5 mL injection pen INJECT ONE PEN (=0.5MG) SUBCUTANEOUSLY ONCE A WEEK DIRECTED 03/01/20 24 Active Gas Relief, simethicone, 180 mg capsule Take 1 capsule (180 mg total) by mouth. Active tirzepatide, weight loss, (Zepbound) 15 mg/0.5 mL solution Inject 0.5 mL (15 mg total) under the skin. 12/25/19 25 Active Ubrelvy 100 mg tablet TAKE 1/2 TO 1 TABLET BY MOUTH AT ONSET OF MIGRAINE. MAY REPEAT IN 2 HOURS NEEDED. MAY TAKE WITH IBUPROFEN Active oxyCODONE (ROXICODONE) 5 mg immediate release tablet TAKE 1 TABLET BY MOUTH EVERY TWELVE HOURS NEEDED FOR SEVERE PAIN FOR UP TO 28 DAYS 02/15/20 25 025 Encounters Date Type Department Care Team Description 02/20/2025 9:30 AM EST Office Visit [facility] [place] [address] [place] [phone] Harjit Zabala, DPM Posterior tibial tendinitis [...] Care Team (Late st Contact Info) Description 06/16/2025 9:30 AM EDT Office Visit [facility] [place] 250 [address] [facility] 250 [place] [address] Harjit Zabala, DPM [address] [address] Health Maintenance Due Date Last Done Comments Breast Cancer Screening 1965 Colorectal Cancer Screening: Colonoscopy 1965 Non-Opioid Controlled Substance Agreement 1964 Cervical Cancer Screening: Pap Smear 1985 RSV Immunization Adult Patients (1 - Risk 50-74 years 1-dose series) 2014 Depression Screening 04/10/2024 HIV Screening 09/24/2024 Hepatitis C Screening 09/24/2024 Medicare Annual Wellness Visit 09/24/2024 Social Influencers of Health Screening 09/24/2024 COVID-19 Vaccine ( season) 2024 02/16/2024, 11/17/2021, 06/02/2021, Additional history exists Hypertension/CHF/CAD Annual BMP Blood Test 02/20/2025 Drug Screen 12/17/2025 12/17/2024 Cholesterol Screening (Lipid Panel) 07/10/2029 07/10/2024 DTaP,Tdap,and [...] ID:[id number] Group ID:[id number] Type:Not on file Address: [place] [address] [address] [address] MEDICAID - [place] Care Teams Retail Cosmetics Sales Beauty Advisor Relationship Specialty Start Date End Date Jesse Kauffman MD [address] [phone] PCP - General Internal Medicine 02/26/21
--- OUTSIDE RECORDS SUMMARY | 2025-03-25 08:59 | XMS_ITS | Encounter Summary ---
Author Organization [employer] Address [address] [place] [address] [place] [address] Care Team Providers Care Director Software Quality Assurance Name Role Phone Chelsi Kauffman MD Primary Care Provide r Reason for Visit * Reason Onset Date Comments triage 06/09/2022 Encounter Details Date Type Department Care Team ([facility] st Contact Info) Description 06/09/[address] [facility] MEDICINE [address] [place] [address] Chelsi Kauffman MD [address] [place] [address] triage Social History Tobacco Use Types Packs/Day [...] 06/09/2022 12:16 PM EST Triage call with [employer] Powdered Sugar Supervisor [place] [id number] Pt reports third time with Covid. Covid [...] accepted this outcome Please contact pt at [phone] Green[place]ic Speaker documented in this encounter Plan of Treatment Upcoming Encounters Date Type Department Care Team (Late st Contact Info) Description 05/16/2025 9:30 AM EST Office Visit [facility] ADULT DENTAL [address] [place] [address] Derick Layaris [address] [place] [address] 05/20/2025 9:45 AM EST Office Visit [facility] MEDICINE [address] [place] [address] documented as of this encounter Visit Diagnoses Not on filedocumented in this encounter Care Teams Director Software Quality Assurance Relationship Specialty Start Date End Date Chelsi Kauffman MD [address] [place] [address] PCP - General Family Medicine 12/20/18 documented as of this encounter
--- OUTSIDE RECORDS SUMMARY | 2025-03-25 09:00 | XMS_ITS | Encounter Summary ---
Author Organization [employer] Address [address] [place] [address] [facility] [place] [address] Care Team Providers Care Metal Framer Name Role Phone Chelsi Kauffman MD Primary Care Provide r Reason for Visit * Reason Comments Med Refill Encounter Details Date Type Department Care Team ([facility] st Contact Info) Description 12/16/2024 Refill [facility] MEDICINE [address] [place] [address] Chelsi Kauffman MD [address] [place] [address] Preventative health care; Hypertension, unspecified type Social [...] 05/16/2025 9:30 AM EST Office Visit [facility] ADULT DENTAL [address] [place] [address] Alireza, Nicole [address] [place] [address] 05/20/2025 9:45 AM EST Office Visit [facility] MEDICINE [address] [place] [address] documented as of this encounter Goals Goal [...] documented as of this encounter Care Teams Metal Framer Relationship Specialty Start Date End Date Chelsi Kauffman MD [address] [place] [address] PCP - General Family Medicine 12/20/18 documented as of this encounter
--- OUTSIDE RECORDS SUMMARY | 2025-03-25 09:00 | XMS_ITS | Encounter Summary ---
Author Organization [employer] Address [address] [place] [address] 7 [place] [address] Care Team Providers Care Cooler Service Supervisor Name Role Phone Chelsi Kauffman MD Primary Care Provide r Reason for Visit * Reason Comments Med Refill Encounter Details Date Type Department Care Team ([facility] st Contact Info) Description 05/06/2024 Refill [facility] MEDICINE [address] [place] [address] Chelsi Kauffman MD [address] [place] [address] Mild intermittent asthma without complication; Asthma in [...] the past 12 months, has t he [employer], gas, oil or water [employer] threatened to shut off services in your [...] Description 05/16/2025 9:30 AM EST Office Visit [facility] ADULT DENTAL [address] [place] [address] Alireza, Nicole [address] [place] [address] 05/20/2025 9:45 AM EST Office Visit [facility] MEDICINE [address] [place] [address] documented as of this encounter Goals Goal [...] documented as of this encounter Care Teams Cooler Service Supervisor Relationship Specialty Start Date End Date Chelsi Kauffman MD [address] [place] [address] PCP - General Family Medicine 12/20/18 documented as of this encounter
--- OUTSIDE RECORDS SUMMARY | 2025-03-25 09:00 | XMS_ITS | Encounter Summary ---
Author Organization [facility] Address [address] [place] [address] [facility] [place] [address] Care Team Providers Care It Service Technician Name Role Phone Chelsi Kauffman MD Primary Care Provide r Reason for Visit * Reason Comments Med Refill Encounter Details Date Type Department Care Team ([facility] st Contact Info) Description 03/08/2023 Refill [facility] MEDICINE [address] [place] [address] Chelsi Kauffman MD [address] [place] [address] Migraine without aura, not refractory Social History [...] Description 05/16/2025 9:30 AM EST Office Visit [facility] ADULT DENTAL [address] [place] [address] Alireza, Nicole [address] [place] [address] 05/20/2025 9:45 AM EST Office Visit [facility] MEDICINE [address] [place] [address] documented as of this encounter Visit Diagnoses Diagnosis Migraine without aura, not refractory documented in this encounter Additional Health Concerns Assessment Noted Time PHQ-9 Depression Total Score: 24 023 2:25 PM EDT documented as of this encounter Care Teams It Service Technician Relationship Specialty Start Date End Date Chelsi Kauffman MD [address] [place] [address] PCP - General Family Medicine 12/20/18 documented as of this encounter
--- OUTSIDE RECORDS SUMMARY | 2025-03-25 09:00 | XMS_ITS | Encounter Summary ---
Author Organization [email or web address] Address [address] [facility] 7 [place] [address] Care Team Providers Care Automotive Machinist Name Role Phone Chelsi Kauffman MD Primary Care Provide r Reason for Visit * Reason Comments Med Refill Encounter Details Date Type Department Care Team ([facility] st Contact Info) Description 09/14/2023 Refill [facility] MEDICINE [address] [place] [address] Chelsi Kauffman MD [address] [place] [address] Polyarthralgia Social History Tobacco Use Types Packs/Day [...] Description 05/16/2025 9:30 AM EST Office Visit [facility] ADULT DENTAL [address] [place] [address] Alireza, Nicole [address] [place] [address] 05/20/2025 9:45 AM EST Office Visit [facility] MEDICINE [address] [place] [address] documented as of this encounter Goals Goal [...] as of this encounter Care Teams Automotive Machinist Relationship Specialty Start Date End Date Chelsi Kauffman MD [address] [place] [id number] PCP - General Family Medicine 12/20/18 documented as of this encounter
--- OUTSIDE RECORDS SUMMARY | 2025-03-25 09:00 | XMS_ITS | Encounter Summary ---
Author Organization [employer] Address [address] [place] [address] Care Team Providers Care Chief Controller Center Name Role Phone Chelsi Kauffman MD Primary Care Provide r Encounter Details Date Type Department Care Team (Latest Contact Info) Description 09/04/2020 Abstract [facility] CONVERSIONS Dental, Provider, DDS Social History [...] Description 05/16/2025 9:30 AM EST Office Visit [facility] ADULT DENTAL [address] [place] [address] Alireza, Nicole [address] [place] [address] 05/20/2025 9:45 AM EST Office Visit [facility] MEDICINE [address] [place] [address] documented as of this encounter Visit Diagnoses Not on filedocumented in this encounter Care Teams Chief Controller Center Relationship Specialty Start Date End Date Chelsi Kauffman MD [address] [place] [address] PCP - General Family Medicine 12/20/18 documented as of this encounter
--- OUTSIDE RECORDS SUMMARY | 2025-03-25 09:00 | XMS_ITS | Encounter Summary ---
Author Organization [email or web address] Address [address] [place] [address] [address] [place] [address] Care Team Providers Care Manager Lan Name Role Phone Chelsi Kauffman MD Primary Care Provide r Reason for Visit * Reason Onset Date Comments Nurse Triage 03/24/2025 Encounter Details Date Type Department Care Team ([facility] st Contact Info) Description 03/24/2025 Telephone [facility] MEDICINE [address] [place] [address] Chelsi Kauffman MD [address] [place] [address] Nurse Triage Social History Tobacco Use Types Packs/Day Years [...] encounter Miscellaneous Notes * Telephone Encounter - Brenda Smith RN - 03/24/2025 6:30 PM EST TC x 1 re below message , no answer, message left requesting call back. * Telephone Encounter - Carrington Martines - 03/24/2025 4:21 PM EST Symptoms: Headache, Ear Congestion Without Pain Outcome: Schedule a same-day appointment or talk to a nurse or provider today Reason: Caller denied all higher acuity questions Please contact at [phone] Kyrgyz speak documented in this encounter Plan of Treatment Upcoming Encounters Date Type Department Care Team (Late st Contact Info) Description 05/16/2025 9:30 AM EST Office Visit [facility] ADULT DENTAL [address] [facility] [place] [address] Nicole Lay [address] [place] [address] 05/20/2025 9:45 AM EST Office Visit [facility] MEDICINE [address] [place] [address] documented as of this encounter Goals Goal [...] as of this encounter Care Teams Manager Lan Relationship Specialty Start Date End Date Chelsi Kauffman MD [address] [place] [address] PCP - General Family Medicine 12/20/18 documented as of this encounter
--- OUTSIDE RECORDS SUMMARY | 2025-03-25 09:00 | XMS_ITS | Encounter Summary ---
Author Organization [employer] Address [address] [facility] 7[address] [place] [address] Care Team Providers Care Va Underwriter Name Role Phone Chelsi Kauffman MD Primary Care Provide r Encounter Details Date Type Department Care Team (Late st Contact Info) Description 01/17/2023 Abstract [facility] MEDICINE [address] [place] [address] Griselda Segal Social History Tobacco Use Types [...] Description 05/16/2025 9:30 AM EST Office Visit [facility] ADULT DENTAL [address] [place], [place] [id number] Alireza, Nicole [address] [place] [address] 05/20/2025 9:45 AM EST Office Visit [facility] MEDICINE [address] [place] [address] documented as of this encounter Procedures Procedure [...] documented as of this encounter Care Teams Va Underwriter Relationship Specialty Start Date End Date Chelsi Kauffman MD [address] [place] [address] PCP - General Family Medicine 12/20/18 documented as of this encounter
--- OUTSIDE RECORDS SUMMARY | 2025-03-25 09:00 | XMS_ITS | Clinical Summary ---
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 Active Blood Glucose Monitoring Suppl (FreeStyle Bagdad Lite) w/Device kitIndications:P rediabetes Use to test [...] BEDTIME AND BEFORE SNACKS 100 each 5 03/18/20 25 9:24 AM EST 025 Active Ubrelvy 100 MG tablet TAKE 1/2 TO 1 TABLET BY MOUTH AT ONSET OF MIGRAINE. MAY REPEAT IN 2 HOURS NEEDED. MAY TAKE WITH IBUPROFEN 025 Active glucose blood (FREESTYLE LITE) test strip USE DIRECTED TO TEST BLOOD SUGAR TWICE DAILY 50 strip 03/18/20 9:24 AM EST 025 Active TRUEplus Lancets 33G miscIndications: IFG (impaired fasting glucose) USE DIRECTED TO TEST BLOOD SUGAR TWICE DAILY 100 each 03/18/20 9:24 AM EST 025 Active naloxone (Narcan) 4 mg/0.1 mL [...] AT BEDTIME 30 tablet 3 025 Active metFORMIN (Glucophage) 500 MG tabletIndication s:Prediabetes TAKE 1 TABLET BY MOUTH TWICE DAILY IN THE MORNING AND AT BEDTIME WITH FOOD 180 tablet 1 025 Active fluticasone (Flonase) 50 MCG/ACT nasal sprayIndications :Allergic conjunctivitis, unspecified laterality INSTILL 2 SPRAYS IN EACH NOSTRIL ONCE DAILY IN THE MORNING 48 g 1 03/18/20 9:24 AM EST 025 Active lidocaine (Lidoderm) 5 % patchIndications :Rib pain on right side Apply 1 patch topically Once per day. Remove & discard patch within 12 hours or as directed by . 30 patch 1 025 Active acetaminophen (Tylenol Extra Strength) 500 MG tabletIndication s:Rib pain on right side Take 1 tablet (500 mg) by mouth every 8 (eight) hours if needed for moderate pain for up to 20 days. 30 tablet 1 03/18/20 25 9:24 AM EST 025 2024 Active Tirzepatide-Weig ht Management (Zepbound) 15 MG/0.5ML solution auto-injectorInd ications:Class 3 severe obesity due to excess calories with serious comorbidity and body mass index (BMI) of 40.0 to 44.9 in adult (HCC) Inject 0.5 mL (15 mg) under the skin 1 (one) time per week. 2 mL 3 03/18/20 25 9:24 AM EST 025 Active gabapentin (Neurontin) 600 [...] NEEDED FOR DRY EYES 15 mL 1 03/18/20 25 9:24 AM EST 025 Active D3 Super Strength 50 MCG (1999 UT) capsuleIndicatio ns:Vitamin D [...] g 2 03/03/20 25 12:05 PM EST 025 Active Calcium Carb-Cholecalcif terri (Oyster Shell Calcium w/D) 500-5 MG-MCG tabletIndication s:Polyarthralgia TAKE 1 TABLET BY MOUTH EVERY MORNING 90 tablet 1 025 Active oxyCODONE (Roxicodone) 5 MG immediate release tabletIndication s:Chronic midline low back pain with right-sided sciatica,Polyart hralgia TAKE 1 TABLET BY MOUTH EVERY TWELVE HOURS NEEDED FOR SEVERE PAIN 56 tablet 03/18/20 25 9:24 AM EST 025 Active citalopram (CeleXA) 20 MG tabletIndication s:Moderate episode of recurrent major depressive disorder (CMS/HCC) (HCC) TAKE 1 TABLET BY MOUTH EVERY MORNING 30 tablet 3 025 Active DULoxetine (Cymbalta) [address] capsuleIndicatio ns:Moderate episode of recurrent major depressive disorder (CMS/HCC) (HCC) TAKE 1 CAPSULE BY MOUTH EVERY MORNING 30 capsule 3 025 Active Calcium Carb-Cholecalcif terri (Oyster Shell Calcium w/D) 500-5 MG-MCG tabletIndication s:Polyarthralgia TAKE 1 TABLET BY MOUTH EVERY MORNING 90 tablet 1 025 2024 Discontinued lidocaine-priloc sheryl (Emla) 2.5-2.5 % creamIndications :Long-term current use of opiate analgesic Apply thin layer by topical route 3-4 times daily as needed for pain 30 g 2 025 2024 Discontinued citalopram (CeleXA) 20 MG tabletIndication s:Moderate episode of recurrent major depressive disorder (CMS/HCC) (HCC) TAKE 1 TABLET BY MOUTH EVERY MORNING 30 tablet 3 025 2024 Discontinued DULoxetine (Cymbalta) [address] capsuleIndicatio ns:Moderate episode of recurrent major depressive disorder (CMS/HCC) (HCC) TAKE 1 CAPSULE BY MOUTH EVERY MORNING 30 capsule 3 025 2024 Discontinued oxyCODONE (Roxicodone) 5 MG [...] current use of opiate analgesic 2023 Overview (03/18/2025): Dx: lumbar anterolisthesis Rx: 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 Go 04/24/24 Assessment & Plan (03/18/2025 7:07 PM EST): Timeline: - 04/23/24: Group- pill count/utox as expected - 06/18/24: Group visit - pill count/utox as expected - 07/16/24: Group visit - pill count/utox as expected - 09/17/24: Group visit - utox/pill count as expected - 12/17/24: Group visit - utox/pill count as expected - 03/18/25: Group visit - utox/pill count as expected Assessment & Plan (12/17/2024 12:58 PM EDT): [...] evidence of acute fracture Assessment & Plan (03/18/2025 7:07 PM EST): -Good engagement and participation with Group Medical Visit model -Encouraged multifactorial approach to pain control including pharm and non- pharm modalities -UTOX and Pill count as expected Assessment & Plan (12/17/2024 12:58 PM EDT): [...] if is persistently high to contact me background check coordinator pain 03/18/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 - Recommended watching [employer] videos fro stretching and exercises that can [...] organization. Date Type Department Care Team Description 03/24/2025 Telephone [facility] MEDICINE [address] [place] [address] Chelsi Kauffman MD Nurse Triage 03/20/2025 Telephone [facility] MEDICINE [address] [place] [address] Chelsi Kauffman MD Referral 03/18/2025 9:45 AM EST Office Visit [facility] MEDICINE [address] [place] [address] Mackenzie Whatley FNP Lumbar spondylosis (Primary Dx); Long-term current use of opiate analgesic 03/16/2025 Refill [facility] MEDICINE [address] [place] [address] Chelsi Kauffman MD Moderate episode of recurrent major depressive disorder (CMS/HCC) (HCC); Chronic toe pain, left foot 03/14/2025 Orders Only [facility] MEDICINE [address] [place] [address] Chelsi Kauffman MD 03/12/2025 Refill [facility] [address] [place] [address] Chelsi Kauffman MD Chronic midline low back pain with right-sided sciatica; Polyarthralgia 03/09/2025 Refill [facility] MEDICINE [address] [place] [address] Chelsi Kauffman MD Polyarthralgia 02/26/2025 Refill [facility] MEDICINE [address] [place] [address] Mackenzie Whatley FNP Long-term current use of opiate analgesic 02/20/2025 Refill [facility] MEDICINE [address] [place] [address] Chelsi Kauffman MD Mild persistent asthma without complication 02/12/2025 10:00 AM EST Immunization [facility] MED[facility]INE [address] [place] [address] Encounter for immunization 02/12/2025 Travel 02/12/2025 Refill [facility] [address] [place] [address] Chelsi Kauffman MD Chronic midline low back pain with right-sided sciatica; Polyarthralgia; Mild intermittent asthma without complication 02/06/2025 Refill [facility] MEDICINE [address] [place] [address] Chelsi Kauffman MD Vertigo 02/05/2025 11:00 AM EDT Office Visit [facility] ADULT DENTAL [address] [place] [address] Granados-Cowan, Aurora, DDS Ill-fitting dentures (Primary Dx) 02/05/2025 Refill [facility] MEDICINE [address] [place] [address] Chelsi Kauffman MD Vitamin D deficiency, unspecified; Vertigo 02/03/2025 Refill [facility] MEDICINE [address] [place] [address] Chelsi Kauffman MD Mild persistent asthma without complication 01/29/2025 11:30 AM EDT Office Visit [facility] OPTOMETRY [address] [place] [address] Rito, Kennedi, OD Presbyopia of both eyes (Primary Dx) 01/29/2025 Travel 01/21/2025 Orders Only GENERIC EXTERNAL DATA DEPARTMENT Provider, Generic External Data 01/18/2025 Refill [facility] MEDICINE [address] [place] [address] Chelsi Kauffman MD Dry eye syndrome of bilateral lacrimal glands 01/16/2025 Refill [facility] [address] [place] [address] Chelsi Kauffman MD Chronic midline low back pain with right-sided sciatica; Polyarthralgia 01/08/2025 Refill [facility] MEDICINE [address] [place] [address] Chelsi Kauffman MD Chronic toe pain, left foot 12/24/2024 11:15 AM EDT Office Visit [facility] MEDICINE [address] [place] [address] Chelsi Kauffman MD Fall (on) (from) other stairs and steps, initial encounter; Rib pain on right side; Class 3 severe obesity due to excess calories with serious comorbidity and body mass index (BMI) of 40.0 to 44.9 in adult 12/24/2024 Travel from Last 3 Months Immunizations Immunization [...] 9:30 AM EST Office Visit [facility] ADULT DENTAL [address] [place] [address] Alireza, Nicole [address] [place] [address] 05/20/2025 9:45 AM EST Office Visit [facility] MEDICINE [address] [place] [address] Health Maintenance Due Date Last Done Comments [...] history exists Depression Screening 01/16/2025 01/17/2024, 01/17/20 Dental Oral Exam 02/09/2025 08/08/2024, , 02/24/2023, Additional history exists Dental Prophylaxis 02/09/2025 08/08/2024, 0 10/31/2023, 02/24/2023, Additional history exists SDOH Screening 06/13/2025 06/13/2024 Diabetes: Hemoglobin A1C 07/10/2025 025, 01/17/2024, 08/19/2022, Additional history exists Dental X-Ray: Bitewings 08/09/2025 08/09/19 25, 02/24/2023, 11/23/2021, Additional history exists Disability Screening 09/23/2025 09/23/2024 Tobacco Screening 02/17/2026 02/17/2025 Dental X-Ray: Full Mouth 02/25/2026 02/24/2023, 12/0 09/2018 Mammogram 03/14/2026 03/14/2025, 02/09, 09/23/2021, Additional history exists Cervical Cancer Screening 07/03/2028 HPV/Cotest 07/03/2028 07/04/2023 [...] Comments POCT ANIKA-14 URINE DRUG SCREEN Routine 03/18/2025 10:37 AM EST Long-term current use of opiate analgesic BI MAMMOGRAM SCREENING TOMOSYNTHESIS BILATERAL Routine 03/14/2025 10:50 AM EST DENTURE ADJUSTMENT Routine 02/05/2025 11 :00 AM EDT Ill-fitting dentures HEMATOXYLIN AND EOSIN STAIN Routine 01/21/2025 12:44 PM EDT GLUCOSE, WHOLE BLOOD Routine 01/21/2025 11:08 AM EDT PROPHYLAXIS - ADULT Routine 08/08/2024 1 1:00 [...] 40.0 to 44.9 in adult Essential hypertension HPV MRNA E6/E7 REFLEX TO HPV 16, [...] to Health Maintenance Results * (ABNORMAL) POCT ANIKA-14 Urine Drug Screen (03/18/2025 10:37 AM EST) THC Positive(A) Negative Cocaine Screen, Urine Negative Negative Opiate Screen, Urine Negative Negative Methamphetamine Screen Urine Negative Negative Amphetamine Screen, Urine Negative Negative Benzodiazepines Screen, Urine Negative Negative Barbiturate Screen, Urine Negative Negative Methadone Screen, Urine Negative Negative Buprenophine Screen, Urine Negative Negative TCA, Urine Positive(A) Negative MDMA Urine Negative Negative ng/mL Oxycodone Screen, Urine Positive(A) Negative Comment:Rx Phencyclidine (PCP), Urine Negative Negative Propoxyphene, Urine Negative Negative Fentanyl, Urine Negative Negative Urine Urine specimen obtained by clean catch procedure / Unknown 03/18/2025 10:37 AM EST Narrative TamekaeneidaShanonLucila, RN - 03/18/2025 10:37 AM EST .UTOX cup Lot#[id number] Exp. 03/10/26 Internal Pass Control Mackenzie Whatley INDUSTRIAL ENGINEERING MANAGER POINT OF CARE TEST ENTER/EDIT ORDERABLES Final Result * BI Mammogram Screening Tomosynthesis Bilateral (03/14/2025 10:50 AM EST) Anatomical Region Laterality Modality Breast Bilateral Mammography 03/14/2025 10:5 0 AM EST Narrative 03/17/2025 12:43 PM EST [facility] [place] [address] Mammography Report Signed Patient: Chelsi Connors MR#: [id number] : 1965 Acct:[id number] Age/Sex: 59 / F ADM Date: 03/14/25 Loc: HO.MAMMO Attending Dr: Chelsi Reece MD Ordering Physician: Chelsi Kauffman MD Results: 1Negative Date of Service: 03/14/25 Follow Up: 1 Year From [facility] ina Mammogram Procedure(s): MM tomosynthesis screening BI Accession Number(s): [id number] cc: Chelsi Kauffman MD Reason For Exam: SCREENING EXAMINATION: MM SCREENING DIGITAL BREAST TOMOSYNTHESIS, BILATERAL CLINICAL INFORMATION: Screening. Asymptomatic. COMPARISON: Mammography: Comparison is made with available priors TECHNIQUE: Digital breast mammography with tomosynthesis is performed in both the craniocaudal and mediolateral oblique views along with computer-aided detection (CAD). FINDINGS: There are scattered areas of fibroglandular density. There are no significant masses, abnormal calcifications, or other abnormalities. MM/MM tomosynthesis screening BI IMPRESSION: No mammographic evidence of malignancy. ASSESSMENT: BI-RADS Category 1: Negative RECOMMENDATION: Routine annual mammography screening. 1 year F/U This examination should not preclude the clinical evaluation of a suspicious palpable abnormality. This patient's information was entered into a reminder system with a target due date for their next mammogram. Electronically signed by: Taty Mccartney DO 03/17/2025 12:40 PM EST Dictated By: Taty Mccartney DO Signed By: <Electronically signed by Taty Mccartney DO in OV> 03/17/25 1240 DD/ 1050 TD/TT: 03/14/25 1100 Fruit Sorter: Procedure Note Donotuseinterpreter, Image - 03/17/2025 [facility] [address] [place] [address] Mammography Report Signed Patient: Chelsi Connors DMR#: [id number] : 1965Acct:[id number] Age/Sex: 59 / FADM Date: 03/14/25 Loc: HO.MAMMO Attending Dr: Chelsi Reece MD Ordering Physician: Chelsi Kauffman MDResults: 1Negative Date of Service: 03/14/25Follow Up: 1 Year From Orig inal Mammogram Procedure(s): MM tomosynthesis screening BI Accession Number(s): [id number] cc: Chelsi Kauffman MD Reason For Exam: SCREENING EXAMINATION: MM SCREENING DIGITAL BREAST TOMOSYNTHESIS, BILATERAL CLINICAL INFORMATION: Screening. Asymptomatic. COMPARISON: Mammography: Comparison is made with available priors TECHNIQUE: Digital breast mammography with tomosynthesis is performed in both the craniocaudal and mediolateral oblique views along with computer-aided detection (CAD). FINDINGS: There are scattered areas of fibroglandular density. There are no significant masses, abnormal calcifications, or other abnormalities. MM/MM tomosynthesis screening BI IMPRESSION: No mammographic evidence of malignancy. ASSESSMENT: BI-RADS Category 1: Negative RECOMMENDATION: Routine annual mammography screening. 1 year F/U This examination should not preclude the clinical evaluation of a suspicious palpable abnormality. This patient's information was entered into a reminder system with a target due date for their next mammogram. Electronically signed by: Taty Mccartney DO 03/17/2025 12:40 PM EST RP Dictated By: Taty Mccartney DO Signed By: <Electronically signed by Taty Mccartney DO in OV> 03/17/25 1240 DD/ 1050 TD/TT: 03/14/25 1100 Fruit Sorter: us Chelsi Reece MD IMG BI PROCEDURES Fin al Result * Hematoxylin and Eosin Stain (01/21/2025 12:44 PM EDT) 01/21/2025 12:4 4 PM EDT 01/21/2025 1:40 PM EDT [facility] LAB[facility] - 01/23/2025 10:49 AM EDT ----- ------- Name: Chelsi Connors Age/Sex: 59/F : 1965 Unit#: [id number] Attend Dr: Domi Miller MD Re01/21/25 Status: [facility] Location: [facility] Disch: ----- ------- SPEC : [id number] RECD: 01/21/25 STATUS: [place] [place] NUM: [id number] HARVINDER: 01/21/[address] [facility] DR: Domi Miller MD ENTERED: 01/21/251 SP TYPE: Surgical OTHR DR: Chelsi Kauffman MD ORDERED: HE Stain/, Gross Micro L4/7, IHC/2, Special st. 2/, H. pylori/2, AB/PAS/ Diagnosis A. Stomach, antrum lesser curvature, biopsy: [...] Name: Chelsi Connors Age/Sex: 59/F : 1965 [id number]#: [id number] Attend Dr: Domi Miller MD Re01/21/25 Status: [facility] Location: [facility] Disch: ----- ------- SPEC : [id number] RECD: 01/21/25 STATUS: [place] NUM: [id number] HARVINDER: 01/21/[address] [facility] DR: Domi Miller MD ENTERED: 01/21/25 SP TYPE: Surgical OTHR DR: Chelsi Kauffman MD ORDERED: HE Stain/, Gross Micro L4/7, IHC/2, Special st. 2, H. pylori/2, AB/PAS/6 Material Received (Continued) G. Ascending colon polyp [...] microscopic examination, 1 piece in cassette G. ([facility]) Special studies ordered and performed: Immunostain for H. pylori on A and E; AB/PAS stains on A, B, C, D, E and F IHC S/NG Disclaimer NOTE: Unless otherwise stated, all tissue is formalin-fixed and paraffin-embedded. Some or all of the immunohistochemical tests reported herein may have been developed and their performance characteristics determined by [facility]. They have not been cleared or approved by the U.S. Food and Drug Administration (FDA). However, the FDA CONTINUED ON NEXT PAGE ----- ------- Name: Chelsi Connors D Age/Sex: 59/F : 1965 Unit#: [id number] Attend Dr: Domi Miller MD Re01/21/25 Status: [facility] Location: [facility] Disch: ----- ------- SPEC : [id number] RECD: 01/21/257380 STATUS: [place]GA [place] NUM: [id number] HARVINDER: 01/21/25-[address]: Domi Miller MD ENTERED: 01/21/252966 SP TYPE: Surgical OTHR DR: Chelsi Kauffman MD ORDERED: HE Stain/, Gross Micro L4/7, IHC/2, Special st. 2/6, H. pylori/2, AB/PAS/6 IHC S/NG Disclaimer (Continued) has determined that such clearance or approval is not necessary. This laboratory is certified under the Clinical Laboratory Improvement Amendments of 1988 (CLIA) as qualified to perform high complexity clinical laboratory testing. Copies To: Chelsi Kaufmfan MD [address] [address] Domi Miller MD [facility] [address] [place] [id number] ----- ------- Signed (signature on file) Dc Shaffer MD 01/23/25 1049 ----- ------- END OF REPORT us Generic External Data Provider LAB BLOOD ORDERAB LES Final Result [facility] [address] [place] [address] [phone] * Glucose, Whole Blood (01/21/2025 11:08 AM EDT) Glucose, Whole Blood 106 60 - 115 mg/dL [facility] Comment:METER #: [id number] 01/21/2025 11:0 8 AM EDT 01/21/2025 11:15 AM EDT us Generic External Data Provider LAB BLOOD ORDERAB LES Final Result Performing Organization Address City/[facility]/ZIP Co de Phone Number [facility] [address] [place] [address] [phone] * Hemoglobin A1c (07/10/2024 12:13 PM EDT) [facility] Hemoglobin A1c 5.7 <6.0 % [facility] Comment:Hemoglobin A1C Refer ence Range Adults: 4.8 - 6.0 % Non diabetic: < 6.0 % Goal: < 7.0 %Additional Action Suggested: > 8.0 %Note: Hemoglobin A1c results are invalid for patients with abnormal amounts of HbF. Blood transfusions may impact the HbA1c concentration in the patient sample. Estimated Average Glucose 117 mg/dL [facility] Comment:eAG = Estimated ave rage glucose which is %A1C expressed asaverage glucose, using the formula of the Y7P-AjieqihYdcmtmd Glucose study (ADAG), Diabetes Care, Vol.31,#8,Nov. 2007 Blood Venous blood specimen / Unknown 07/10/2024 12:13 PM EDT 07/10/2024 12:13 PM EDT us Chelsi Reece MD LAB BLOOD ORDERABLES Final Result Performing Organization Address City/[facility]/ZIP Co de Phone Number [facility] [address] [place] [address] [phone] * (ABNORMAL) Lipid Panel, Standard (07/10/2024 12:13 PM EDT) Triglycerides 167(H) <150 mg/dL [facility] Comment:Desirable Triglyceri de: less than 150 mg/dLBorderline High Triglyceride 150-199 mg/dLHigh Triglyceride: 200-499 mg/dLVery High Triglyceride: greater than or equal to 5OO mg/dL Cholesterol 163 <200 mg/dL [facility] Comment:Desirable Cholestero l: less than 200 mg/dLBorderline High Cholesterol: 200-239 mg/dLHigh Cholesterol: greater than 239 mg/dL LDL Cholesterol Calculated 90 <100 mg/dL [facility] Comment:Desirable LDL: less than 100 mg/dLNear Optimal/Above Optimal LDL: 110- 129 mg/dLBorderline High LDL: 130-159 mg/dLHigh LDL: 160-189 mg/dLVery High LDL: greater than or equal to 190 mg/dL HDL Cholesterol 40(L) >40 mg/dL [facility] Comment:Desirable HDL: great er than 40 mg/dL Note: This HDL assay may give artificially low results in patients with liver disease. Blood Venous blood specimen / Unknown 07/10/2024 12:13 PM EDT 07/10/2024 12:13 PM EDT Chelsi Reece MD LAB BLOOD ORDERABLES Final Result [facility] [address] [place] [phone] * Image-Guided Pap with Age-Based Screening??with CT/NG,??Trichomonas (07/04/2023 3:39 PM EDT) Trichomonas (NAAT) NOT DETECTED NOT DETECTED [facility] Comment:The analytical perfo rmance characteristics of thisassay have been determined by [employer]. Themodifications have not been cleared or approved bythe FDA. This assay has been validated pursuant to theCLIA regulations and is used for clinical purposes.For additional information, please refer tohttp://education.[employer]/faq/Trichomonastma(This link is being provided for information/educational purposes only.)THIS TEST WAS PERFORMED AT:[employer] [place] [phone] HANEY MD CTNG Ref Lab NOT DETECTED NOT DETECTED [facility] NG Ref Lab NOT DETECTED NOT DETECTED [facility] Pap Vial Vaginal structure / Unknown 07/04/2023 3:39 PM EDT 07/10/2023 8:55 AM EDT Narrative [facility] - 07/11/2023 8:28 PM EDT Collection Date: [id number]: Vagina Chelsi Reece MD LAB CYTOLOGY ORDERABL ES Final Result Performing Organization Address [facility] de Phone Number [facility] [address] [place] [address] [phone] * HPV mRNA E6/E7 w/Reflex to HPV Genotypes 16, 18/45 (07/04/2023 3:39 PM EDT) HPV nRNA E6/E7 Not Detected Not Detected [facility] Comment:Methodology: Transcr iption-Mediated AmplificationThis assay detects E6/E7 viral messenger RNA (mRNA) from 14high-risk HPV types (16,18,31,33,35,39,45,51,52,56,58,59,66,68).Cervical sources are required for HPV testing.If a vaginal source from a patient who has had atotal hysterectomy with removal of cervix wassubmitted, please contact the testing laboratoryfor alternative testing options.For additional information, please refer tohttp://education.[employer]/faq/QSM863b8(This link if provided for information/educational purposes only.)THIS TEST WAS PERFORMED AT:[facility] [place] [phone] HANEY MD HPV mRNA E6/E7 [facility] HPV 16 RNA TNP [facility] HPV 18/45 RNA [facility] 07/04/2023 3:39 PM EDT 07/05/2023 2:00 PM EDT us Chelsi Reece MD LAB CYTOLOGY ORDERABL ES Final Result Performing Organization Address [facility]/State/ZIP Co de Phone Number [facility] [address] [place] [address] [phone] * (ABNORMAL) Hepatitis C Ab (12/21/2022 10:55 AM EDT) Hepatitis C Antibody Reactive( A) Nonreactive [facility] Comment:Presumptive evidence of antibodies to HCV. 12/21/2022 10:5 5 AM EDT 12/21/2022 10:55 AM EDT [facility] External Provider LAB BLO OD ORDERABLES Final Result Performing Organization Address [facility] Co de Phone Number [facility] [address] [place] [address] [phone] * HIV Ab/Ag ([place] [facility]) (12/21/2022 10:55 AM EDT) HIV AB/AG Nonreactive Nonreactive [facility] Comment:HIV-1 p24 Ag and/or HIV-1/HIV-2 Ab not detected.A test result that is nonreactive does not exclude thepossibility of exposure to or infection with HIV-1 and/orHIV-2. Nonreactive results in this assay for individualswith prior exposure to HIV-1 and/or HIV-2 may be due toantigen and antibody levels that are below the limit ofdetection of this assay.The Blue [employer] HIV Ag/Ab Combo assay result andsupplemental assay results should be interpreted inconjunction with the patient's clinical presentation,history and other laboratory results. If the results areinconsistent with clinical evidence, additional testing issuggested to confirm the result. 12/21/2022 10:5 5 AM EDT 12/21/2022 10:55 AM EDT Generic External Data Provider LAB BLOOD ORDERAB LES Final Result Performing Organization Address [facility] Co de Phone Number [facility] [address] [place] [address] [phone] * Hm Colonoscopy (08/25/2022) Colonoscopy Normal Normal Narrative Griselda Segal - 08/25/2022 Recommended 1 year follow up due to poor prep us Historical Provider MD HEALTH MAINTENANCE Final Result from Last 3 Months or Most Recently Relevant to Health Maintenance Insurance [facility] < 65 [facility] Care Teams Stenciling Machine Tender Relationship Specialty Start Date End Date Chelsi Kauffman MD [address] [place] [address] PCP - General Family Medicine 12/20/18
--- OUTSIDE RECORDS SUMMARY | 2025-03-25 09:00 | XMS_ITS | Encounter Summary ---
Author Organization [employer] Address [address] [place] [address] [place] [address] Care Team Providers Care Program Architect Name Role Phone Chelsi Kauffman MD Primary Care Provide r Reason for Visit * Reason Onset Date Comments Med Refill 05/30/2024 Encounter Details Date Type Department Care Team (Late st Contact Info) Description 05/30/2024 Refill [facility] MEDICINE [address] [place] [address] Chelsi Kauffman MD [address] [place] [address] Social History Tobacco Use Types Packs/Day Years [...] MG/0.5ML solution auto-injector To be sent to: [facility] - [place], [place] - [address] [place] [address] documented in this encounter Plan of Treatment Upcoming Encounters Date Type Department Care Team ([facility] st Contact Info) Description 05/16/2025 9:30 AM EST Office Visit [facility] ADULT DENTAL [address] [place] [address] Derick Layaris [address] [place] [address] 05/20/2025 9:45 AM EST Office Visit [facility] MEDICINE [address] [place] [address] documented as of this encounter Goals Goal [...] documented as of this encounter Care Teams Program Architect Relationship Specialty Start Date End Date Chelsi Kauffman MD [address] [place] [address] PCP - General Family Medicine 12/20/18 documented as of this encounter
--- OUTSIDE RECORDS SUMMARY | 2025-03-25 09:00 | XMS_ITS | Encounter Summary ---
Author Organization [employer] Address [address] [place] [address] [facility] [place] [address] Care Team Providers Care Turbine Engineer Name Role Phone Chelsi Kauffman MD Primary Care Provide r Reason for Referral * Consultation (Routine) - Closed Specialty Diagnoses / Procedures Referred By Contac t Referred To Contact Physical Therapy Diagnoses Benign paroxysmal vertigo, unspecified laterality Christine Laurent MD [address] [place] [address] Phone: tel: fax: [facility] [place] Physical Therapy [address] [place] [address] Phone: tel: fax: Referral ID Status Reason Start Date Expiration Date V isits Requested Visits Authorized [id number] Closed Specialty Services Required 04/26/2024 04/26/2025 1 1 Encounter Details Date Type Department Care Team (Late st Contact Info) Description 04/26/2024 Orders Only [facility] MEDICINE [address] [place] [address] [phone] Christine Laurent MD [address] [place], [place] [phone] Benign paroxysmal vertigo, unspecified laterality (Primary Dx) [...] Description 05/16/2025 9:30 AM EST Office Visit [facility] ADULT DENTAL [address] [place] [address] Nicole Lay [address] [place] [address] 05/20/2025 9:45 AM EST Office Visit [facility] MEDICINE [address] [place] [address] Scheduled Referrals Name Type Priority Associated Diagnoses [...] documented as of this encounter Care Teams Turbine Engineer Relationship Specialty Start Date End Date Chelsi Kauffman MD [address] [place] [address] PCP - General Family Medicine 12/20/18 documented as of this encounter
--- OUTSIDE RECORDS SUMMARY | 2025-03-25 09:00 | XMS_ITS | Encounter Summary ---
Author Organization [employer] Address [address] [place] [address] [place] [address] Care Team Providers Care Clinical Documentation Improvement Specialist Name Role Phone Chelsi Kauffman MD Primary Care Provide r Reason for Visit * Reason Onset Date Comments Referral 03/20/2025 Encounter Details Date Type Department Care Team ([facility] st Contact Info) Description 03/20/2025 Telephone [facility] MEDICINE [address] [place] [address] Chelsi Kauffman MD [address] [place] [address] Referral Social History Tobacco Use Types Packs/Day [...] encounter Miscellaneous Notes * Telephone Encounter - Mehreen Hensley RN - 03/20/2025 1:57 PM EST TC placed to patient [phone] in regards to below message via [employer] interpreters (Giancarlo #[id number]).Patient reports she had a hearing [place] [facility] in the past and she would like to have the test repeated. Patient was provided with phone number to [facility] [phone] to call and schedule repeat testing. Patient was advised if anything further is needed from our office to let us know. Patient agreeable to POC. * Telephone Encounter - Jeet Martines - 03/20/2025 1:17 PM EST Tc from pt requesting a referral for audiology. Please contact pt at [phone]. (Syrian Speaker) documented in this encounter Plan of Treatment Upcoming Encounters Date Type Department Care Team (Late st Contact Info) Description 05/16/2025 9:30 AM EST Office Visit [facility] ADULT DENTAL [address] [place] [address] Nicole Lay [address] [place] [address] 05/20/2025 9:45 AM EST Office Visit [facility] MEDICINE [address] [place] [address] documented as of this encounter Goals Goal [...] as of this encounter Care Teams Clinical Documentation Improvement Specialist Relationship Specialty Start Date End Date Chelsi Kauffman MD [address] [place] [address] PCP - General Family Medicine 12/20/18 documented as of this encounter
--- OUTSIDE RECORDS SUMMARY | 2025-03-25 09:00 | XMS_ITS | Encounter Summary ---
Author Organization [employer] Address [address] [place] [address] Care Team Providers Care Hand Booked Folder And Stitcher Name Role Phone Chelsi Kauffman MD Primary Care Provide r Encounter Details Date Type Department Care Team (Latest Contact Info) Description 11/23/2021 Abstract [facility] CONVERSIONS Dental, Provider, DDS Social History [...] [facility] ADULT DENTAL [address] [place] [address] Alireza, Nicole [address] [place] [address] 05/20/2025 9:45 AM EST Office Visit [facility] MEDICINE [address] [place] [address] documented as of this encounter Visit Diagnoses Not on filedocumented in this encounter Care Teams Hand Booked Folder And Stitcher Relationship Specialty Start Date End Date Chelsi Kauffman MD [address] [place] [address] PCP - General Family Medicine 12/20/18 documented as of this encounter
--- OUTSIDE RECORDS SUMMARY | 2025-03-25 09:00 | XMS_ITS | Encounter Summary ---
Author Organization [employer] Address [address] [facility] 7 [place] [address] Care Team Providers Care Account Manager B2B Name Role Phone Chelsi Kauffman MD Primary Care Provide r Encounter Details Date Type Department Care Team ([facility] st Contact Info) Description 03/25/2024 Telephone [facility] MEDICINE [address] [place] [address] Chelsi Kauffman MD [address] [place], [place] [phone] Social History Tobacco Use Types Packs/Day Years [...] Description 05/16/2025 9:30 AM EST Office Visit [facility] ADULT DENTAL [address] [place] [address] Alireza, Nicole [address] [place] [address] 05/20/2025 9:45 AM EST Office Visit [facility] MEDICINE [address] [place] [address] documented as of this encounter Goals Goal [...] documented as of this encounter Care Teams Account Manager B2B Relationship Specialty Start Date End Date Chelsi Kauffman MD [address] [place] [address] PCP - General Family Medicine 12/20/18 documented as of this encounter
--- OUTSIDE RECORDS SUMMARY | 2025-03-25 09:00 | XMS_ITS | Encounter Summary ---
Author Organization [employer] Address [address] [facility] 7 [place] [address] Care Team Providers Care Archery Equipment Hay Sorter Name Role Phone Chelsi Kauffman MD Primary Care Provide r Encounter Details Date Type Department Care Team (Late st Contact Info) Description 05/06/2024 Orders Only [facility] MEDICINE [address] [place], [place] [phone] Mariana Meyer MD [address] [place] [address] Social History Tobacco Use Types Packs/Day Years [...] Description 05/16/2025 9:30 AM EST Office Visit [facility] ADULT DENTAL [address] [place] [address] Alireza, Nicole [address] [place] [address] 05/20/2025 9:45 AM EST Office Visit [facility] MEDICINE [address] [place] [address] documented as of this encounter Goals Goal [...] documented as of this encounter Care Teams Archery Equipment Hay Sorter Relationship Specialty Start Date End Date Chelsi Kauffman MD [address] [place] [address] PCP - General Family Medicine 12/20/18 documented as of this encounter
--- OUTSIDE RECORDS SUMMARY | 2025-03-25 09:00 | XMS_ITS | Encounter Summary ---
Author Organization [employer] Address [address] [facility] 7 [place] [address] Care Team Providers Care Kitchen Food Assembler Name Role Phone Chelsi Kauffman MD Primary Care Provide r Reason for Visit * Reason Comments Med Refill Encounter Details Date Type Department Care Team ([facility] st Contact Info) Description 05/09/2023 Refill [facility] MEDICINE [address] [place] [address] Chelsi Kauffman MD [address] [place] [address] Migraine without aura, not refractory Social History [...] Description 05/16/2025 9:30 AM EST Office Visit [facility] ADULT DENTAL [address] [place] [address] Alireza, Nicole [address] [place] [address] 05/20/2025 9:45 AM EST Office Visit [facility] MEDICINE [address] [place] [address] documented as of this encounter Visit Diagnoses Diagnosis Migraine without aura, not refractory documented in this encounter Additional Health Concerns Assessment Noted Time PHQ-9 Depression Total Score: 0 04/25/19 24 9:30 AM EST documented as of this encounter Care Teams Kitchen Food Assembler Relationship Specialty Start Date End Date Chelsi Kauffman MD [address] [place] [address] PCP - General Family Medicine 12/20/18 documented as of this encounter
--- OUTSIDE RECORDS SUMMARY | 2025-03-25 09:00 | XMS_ITS | Encounter Summary ---
Author Organization [employer] Address [address] [place] [address] [place] [address] Care Team Providers Care Heating And Ventilation Engineer Name Role Phone Chelsi Kauffman MD Primary Care Provide r Reason for Visit * Reason Onset Date Comments Referral 08/12/2024 Encounter Details Date Type Department Care Team ([facility] st Contact Info) Description 08/12/[address] [facility] MEDICINE [address] [place] [address] Chelsi Kauffman MD [address] [place] [address] Referral Social History Tobacco Use Types Packs/Day [...] referral : DATE: 08/12/2024 TIME: 10:00am Address: [address] [place] [address] Visits: 1 Facility Name: [facility] [place] Type of Specialist: physical therapy [id number] Provider : not provided Provider NPI : Facility NPI: [id number] Phone # : [phone] Fax #: [phone] documented in this encounter Plan of Treatment Upcoming Encounters Date Type Department Care Team ([facility] Contact Info) Description 05/16/2025 9:30 AM EST Office Visit [facility] ADULT DENTAL [address] [place] [address] Derick Layaris [address] [place] [address] 05/20/2025 9:45 AM EST Office Visit [facility] MEDICINE [address] [place] [address] documented as of this encounter Goals Goal [...] documented as of this encounter Care Teams Heating And Ventilation Engineer Relationship Specialty Start Date End Date Chelsi Kauffman MD [address] [place] [address] PCP - General Family Medicine 12/20/18 documented as of this encounter
--- OUTSIDE RECORDS SUMMARY | 2025-03-25 09:00 | XMS_ITS | Encounter Summary ---
Author Organization [employer] Address [address] [place] [address] [facility] [place] [address] Care Team Providers Care Osteopathy Doctor Name Role Phone Chelsi Kauffman MD Primary Care Provide r Reason for Visit * Reason Comments Med Refill Encounter Details Date Type Department Care Team ([facility] st Contact Info) Description 03/16/2023 Refill [facility] MEDICINE [address] [place] [address] Chelsi Kauffman MD [address] [place] [address] Dry eyes Social History Tobacco Use Types [...] Description 05/16/2025 9:30 AM EST Office Visit [facility] ADULT DENTAL [address] [place] [address] Alireza, Nicole [address] [place] [address] 05/20/2025 9:45 AM EST Office Visit [facility] MEDICINE [address] [place] [address] documented as of this encounter Visit Diagnoses Diagnosis Dry eyes Unspecified tear film insufficiency documented in this encounter Additional Health Concerns Assessment Noted Time PHQ-9 Depression Total Score: 24 023 2:25 PM EDT documented as of this encounter Care Teams Osteopathy Doctor Relationship Specialty Start Date End Date Chelsi Kauffman MD [address] [place] [address] PCP - General Family Medicine 12/20/18 documented as of this encounter
--- OUTSIDE RECORDS SUMMARY | 2025-03-25 09:00 | XMS_ITS | Encounter Summary ---
Author Organization [employer] Address [address] [place] [address] [place] [address] Care Team Providers Care Texture Artist Name Role Phone Chelsi Kauffman MD Primary Care Provide r Reason for Visit * Reason Onset Date Comments Reschedule 06/13/2023 Encounter Details Date Type Department Care Team ([facility] st Contact Info) Description 06/13/2023 Telephone [facility] MEDICINE [address] [place] [address] Chelsi Kauffman MD [address] [place] [address] Reschedule Social History Tobacco Use Types Packs/Day [...] 04/07 Derm appointment. Please contact pt at [phone] documented in this encounter Plan of Treatment Upcoming Encounters Date Type Department Care Team (Late st Contact Info) Description 05/16/2025 9:30 AM EST Office Visit [facility] ADULT DENTAL [address] [place] [address] Laireza, Nicole [address] [place] [address] 05/20/2025 9:45 AM EST Office Visit [facility] MEDICINE [address] [place] [address] documented as of this encounter Visit Diagnoses Not on filedocumented in this encounter Additional Health Concerns Assessment Noted Time PHQ-9 Depression Total Score: 0 04/25/19 24 9:30 AM EST documented as of this encounter Care Teams Texture Artist Relationship Specialty Start Date End Date Chelsi Kauffman MD [address] [place] [address] PCP - General Family Medicine 12/20/18 documented as of this encounter
== END 2025-03-24 08:30 | disposition home or self-care (01) ==
LOC: HO.HOSX 08:29
PROVIDERS: Visit Provider Physician Assistant
DX: M17.11 Unilateral primary osteoarthritis, right knee (principal); M25.561 Pain in right knee; G89.29 Other chronic pain
CPT/HCPCS: 20610; 73562; 99212; J0665; J1100; J2003

== ENCOUNTER 2025-03-24 11:21 | Outpatient (AMB) | payer OTHER, SELFPAY ==
--- NOTE | 2025-03-24 11:45 | A.OFFVIS_ITS ---
Vital Signs 03/24/25 11:48 Height 5 ft 6 in Weight 238 lb BMI 38.4 Intake Visit Reasons: Newprob-right knee pain Intake Note: Chelsi is a 59 year old female who presents today as an established patient, new problem visit to evaluate right knee pain. Patient was previously seen for her right knee OA on 07/15/24 and was given an injection. Today patient reports fell off the stairs injuring her knee and ribs. States bilateral knee pain however her right knee worse. Her pain is located at the anterior aspect traveling towards medial side of knee. Complaints of pain in thigh that travels to her knee. She also complains of swelling, stating she needs an anti-inflammatory to help with swelling as this causes her the most discomfort. Allergies No Known Allergies (No Known Allergies*) Allergy (Verified 03/24/25 11:48) HPI Comments Details: History of Present Illness The patient is a 59 year old female presenting with a flare-up of chronic right knee pain. She has a known history of severe arthritis in the right knee, and the pain was recently activated by a fall, which also caused shoulder pain. She uses a topical menthol product for pain relief. In the past, injections for this condition have provided relief for over a year. The patient is also preparing for a future knee replacement surgery by losing weight. Social History - The patient is actively losing weight in preparation for a future knee replacement surgery. 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 Trichomonal infection Screen for STD (sexually transmitted disease) Well woman exam Post covid-19 condition, unspecified TOUSSAINT (dyspnea on exertion) Urge incontinence Overactive bladder Stress incontinence Distal radius fracture, left Fracture of left distal radius Colon cancer screening Abdominal cramping Well woman exam with routine gynecological exam Subcutaneous abscess Cellulitis Urgency incontinence Microscopic hematuria Hx of fracture of wrist Hx of sleep apnea Hx of vertigo COVID GERD (gastroesophageal reflux disease) Pre-diabetes Epigastric pain Abdominal cramping Primary osteoarthritis of knees, bilateral Morbid obesity Osteoarthritis Fibromyalgia Arthritis Hypertension Surgical History History of open reduction and internal fixation (ORIF) procedure Hx of tubal ligation Hx of colonoscopy History of cholecystectomy (~2019) Family History Father Stomach cancer Brother Stomach problems Mother Diabetes Social History Household Members: Family Housing: Apartment Do you presently have visiting nurse or other home services: No Alcohol intake: current Alcohol intake frequency: does not drink Patient Tobacco Use Status: Former Tobacco user Tobacco use type: Cigarette Second Hand Smoke Exposure: No Advance Directives Date on File: 01/28/20 service: No Current occupational status: unemployed Sexual orientation: Straight/Heterosexual Gender identity: Female Review of Systems Narrative Review of Systems - Musculoskeletal: Reports severe right knee pain, which was activated by a fall. Also reports shoulder pain since the fall. Physical Exam Exam Exam: Physical Exam Vital Signs: BMI result Body Mass Index 38.4 Extrem Other: Tenderness to palpation medial joint line right knee No effusion 0-120 degrees of motion Mild gait antalgia Office Procedures AMB Joint Injection/Aspiration Joint Injection/Aspiration Primary Site: Right Knee Prep: site was prepped using aseptic technique, ethochloride spray was applied and injection warnings given Injected: 40 mg of, Decadron, with 3 mL of, 1% plain Lidocaine, 0.25% Bupivacaine and in the joint Approach Used: anterolateral Procedure: The patient tolerated the procedure well and there was some relief with the local anesthesia Coding 30738 - Glenohumeral/Tronchanteric Bursa/Intraarticular Procedure code (CPT) selection complete Results Reviewed Results Reviewed: Xrays were obtained in the office today and personally reviewed by me of the right knee show severe OA Assessment & Plan Assessment & Plan (1) Primary osteoarthritis of right knee: Code(s): M17.11 - Unilateral primary osteoarthritis, right knee Category: Medical Plan The patient's chronic pain from severe right knee arthritis has flared up following a recent fall. To manage this exacerbation, an injection will be administered to the right knee today with the goal of returning her pain to baseline. She is encouraged to continue working on weight loss in preparation for potential knee replacement surgery. Consent The plan to perform an injection in the right knee was discussed with the patient as a treatment to reduce her current pain flare-up and return it to baseline. The patient provided verbal consent to proceed with the procedure. Patient was informed and verbally consented to the use of an ambient scribe for clinic note documentation during this visit. Coding Level of Care Code Est Pt Level 3 (14417) Add On Problem Visit Only Diagnoses Primary osteoarthritis of right knee M17.11 CPT Codes Coding - Joint 7: 40439 - Glenohumeral/Tronchanteric Bursa/Intraarticular ([id number])
[2025-03-24 11:48] VITALS: BMI 38.4
== END 2025-03-24 13:21 | disposition home or self-care (01) ==
PROVIDERS: PCP Internal Medicine; Visit Provider Physician Assistant
DX: M17.11 Unilateral primary osteoarthritis, right knee (principal)
CPT/HCPCS: 20610; 99213

== ENCOUNTER → 2025-03-24 11:24 | Outpatient (BNV) | payer OTHER, SELFPAY | PROVIDERS: Visit Provider Radiology Diagnostic Radiology | DX: M17.11 Unilateral primary osteoarthritis, right knee (principal) | CPT/HCPCS: 73562 ==

== ENCOUNTER 2025-03-28 09:13 | Outpatient (AMB) | payer OTHER, SELFPAY ==
--- NOTE | 2025-03-28 09:16 | A.OFFVIS_ITS ---
Vital Signs 03/28/25 09:24 Height 5 ft 6 in Weight 249 lb 1.957 oz BMI 40.2 BP 150/82 H Blood Pressure Location Lt brachial Position Sitting Pulse 80 Intake Visit Reasons: s/p EGD and colonoscopy Intake Note: Chelsi presents in follow up s/p EGD and colonoscopy. CC: Patient reports doing well and denies having any new GI symptoms. Manager Chemical Required: Yes Allergies No Known Allergies (No Known Allergies*) Allergy (Verified 03/28/25 09:28) HPI HPI s/p EGD and colonoscopy: Details: Assessment & Plan (1) Tubulovillous adenoma of colon: Comment: 09/2022= poor prep repeat in 1 year; 10/07/20 SCOPE, TVA repeat 1 year Code(s): D12.6 - Benign neoplasm of colon, unspecified Category: Medical (2) Post-cholecystectomy syndrome: Comment: on CT not borne out on biopsy aeb Code(s): K91.5 - Postcholecystectomy syndrome Category: Medical (3) Irritable bowel syndrome with diarrhea: Code(s): K58.0 - Irritable bowel syndrome with diarrhea Category: Medical (4) GERD (gastroesophageal reflux disease): Code(s): K21.9 - Gastro-esophageal reflux disease without esophagitis Category: Medical (5) Erosive esophagitis: Code(s): K22.10 - Ulcer of esophagus without bleeding Category: Medical Plan TRINIDADIAN #Deidra Rolf Past Celiac studies have been negative. She did not clear out with the Miralax prep, and that is why she cancelled her procedure. She wants to go back to PEG which worked for her. She would like an EGD as well as she is not on Zepbound which increases her GERD, and with her hx of erosive esphagitis I think this is prudent. She continues on dicyclomine 20 mg 3 times a day, esomeprazole 40 mg daily in the morning and famotidine 40 mg at night, and simethicone. She is having nausea with her Zepbound, but it is better than when she tried Wegovy. She asked me for nausea medicines by think it is more prudent for her to discuss this side effect with the prescriber and for them either to slow the progression of her dosing for keep her at a lower dose. ROV 6 mos and after procedure. Orders: Orders EGD/Hemphill Combo - GI Use Only Today D12.6 - Benign neoplasm of colon, unspecified, K22.10 - Ulcer of esophagus without bleeding Medications: New peg 3350-electrolytes 236-22.74-6.74 -5.86 gram (Golytely) until fecal effluent is clear; do not exceed a total volume of 2,000 mL 240 mL PO Q10M 4,000 mL 0RF 1 day Z12.11 - Encounter for screening for malignant neoplasm of colon Refilled famotidine 40 mg PO BEDTIME 30 tabs 6RF K21.9 - Gastro-esophageal reflux disease without esophagitis, K22.10 - Ulcer of esophagus without bleeding bisacodyl (Dulcolax (bisacodyl)) 10 mg (2 x 5 mg) PO BEDTIME 4 tabs 0RF 2 days simethicone (Gas Relief (simethicone)) 180 mg PO QID 120 ea 6RF R14.0 - Abdominal distension (gaseous) esomeprazole magnesium 40 mg PO BEDTIME 30 caps 6RF K21.9 - Gastro-esophageal reflux disease without esophagitis dicyclomine 20 mg PO TID 90 tabs 1RF EGD/COLONOSCOPY 01/21/25 EGD Findings:? * Esophagus:? Normal esophageal mucosa was noted. The Z-line was at 38 cm and irregular up to 36 cm. Cold forceps biopsies were taken from GE junction to rule out Nguyen's esophagus. A Tissue Cypher will also be sent if metaplasia present. * Stomach:? Normal gastric mucosa. Retroflexion was performed in the cardia that showed Hill grade III hiatal hernia. Cold forceps mapping biopsies were taken from the stomach as per Juliana protocol to screen for gastric ca due to extensive family hx. * Duodenum:? Normal duodenal mucosa. Findings: Mucosa: Normal colon and terminal ileum mucosa. Protruding lesions: * 1 sessile polyp of size 10 mm in ascending colon. Cold snare polypectomy was performed. The polyp was completely removed and retrieved. * Medium internal hemorrhoids without stigmata of recent bleeding.Excavated lesions: * Mild diverticulosis of sigmoid colon. Impression: 1. Irregular Z line (biopsy, tissue cypher) 2. Hiatal hernia 3. Normal stomach (biopsy) 4. Normal duodenum 5. Normal colon and terminal ileum mucosa 6. One polyp removed 7. Diverticulosis 8. Internal and external hemorrhoids Recommendations:?? * Follow-up path results * Avoid NSAIDs * Cont PPI * Repeat EGD in 5 years contingent on results * Repeat colonoscopy in 3 years if polyp is an adenoma BIOPSY Received: 01/21/25 Diagnosis A. Stomach, antrum lesser curvature, biopsy: Antral-type mucosa with mild chronic inactive inflammation; no Helicobacter organisms seen. B. Stomach, antrum greater curvature, biopsy: Antral-type mucosa with mild ch ronic inactive inflammation; no Helicobacter organisms seen. C. Stomach, incisura, biopsy: Antral-type mucosa with mild chronic inactive inflammation; no Helicobacter organisms seen. D. Stomach, body lesser curvature, biopsy: Oxyntic mucosa with mild chronic inactive inflammation; no Helicobacter organisms seen. E. Stomach, body greater curvature, biopsy: Oxyntic mucosa with mild chronic inactive inflammation; no Helicobacter organisms seen. F. GE junction, biopsy: - Cardiac-type mucosa with moderate chronic active inflammation; no intestinal metaplasia seen. - Squamous epithelium within normal limits. G. 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 Trichomonal infection Screen for STD (sexually transmitted disease) Well woman exam Post covid-19 condition, unspecified TOUSSAINT (dyspnea on exertion) Urge incontinence Overactive bladder Stress incontinence Distal radius fracture, left Fracture of left distal radius Colon cancer screening Abdominal cramping Well woman exam with routine gynecological exam Subcutaneous abscess Cellulitis Urgency incontinence Microscopic hematuria Hx of fracture of wrist Hx of sleep apnea Hx of vertigo COVID GERD (gastroesophageal reflux disease) Pre-diabetes Epigastric pain Abdominal cramping Primary osteoarthritis of knees, bilateral Morbid obesity Osteoarthritis Fibromyalgia Arthritis Hypertension Surgical History History of open reduction and internal fixation (ORIF) procedure Hx of tubal ligation Hx of colonoscopy History of cholecystectomy (~2018) Family History Father Stomach cancer Brother Stomach problems Mother Diabetes Social History Household Members: Family Housing: Apartment Do you presently have visiting nurse or other home services: No Alcohol intake: current Alcohol intake frequency: does not drink Patient Tobacco Use Status: Former Tobacco user Tobacco use type: Cigarette Second Hand Smoke Exposure: No Advance Directives Date on File: 01/28/20 service: No Current occupational status: unemployed Sexual orientation: Straight/Heterosexual Gender identity: Female Review of Systems ENT Reports Normal hearing present Neuro Reports Normal hearing present and Denies Abnormal speech present Physical Exam Vital Signs: Last Vital Signs Pulse 80 03/28/25 09:24 BP 150/82 H 03/28/25 09:24 BMI result Body Mass Index 40.2 Const General: cooperative, no acute distress, well developed and well groomed Nutritional Appearance: well nourished and obese Orientation/consciousness: oriented to person, oriented to place and oriented to time Limitations: language barrier HEENT Head: Yes normocephalic and Yes atraumatic Eyes General: appearance normal, both eyes and all related structures Pupils: Equal, round and reactive pupils present Neck Neck: Yes normal visual inspection and Yes no lymphadenopathy Thyroid: Thyroid normal Resp Effort & Inspection: normal respiratory effort and able to speak in complete sentences Auscultation: clear to auscultation bilaterally Cardio Rate: regular rate Rhythm: regular rhythm Heart sounds: Normal, physiologic split S2 sound present Peripheral pulses: radial pulses present and posterior tibial pulses present GI Inspection: No distended, Yes Abdominal panniculus present and Yes obesity Palpation (GI): Soft to palpation, nontender, no guarding, not rigid and No hepatosplenomegaly present Percussion: Yes normal to percussion Auscultation: normal bowel sounds Rectal Exam - Female: deferred Skin General skin exam: no rashes or lesions noted, turgor normal, skin not dry, no jaundice, No spider nevi and no striae Rashes: no rashes Nails: normal Neuro General: oriented to person, oriented to place and oriented to time Cranial nerves: Yes Equal, round and reactive pupils present and Yes Normal hearing present Speech: No Abnormal speech present Extrem General: Yes normal to inspection, No clubbing, No cyanosis and No edema Psych Appearance: grossly normal and well kempt Mental Status: mental status grossly normal Speech and movement: Normal speech and movement present Affect: normal affect Attitude: cooperative Thought process: Normal thought process present and not confabulating Thought content: Normal thought content present Insight: Fair insight present (Psych) Judgement: Fair judgement present (Psych) Results Reviewed Results Reviewed: EGD/COLONOSCOPY 01/21/25 EGD Findings:? * Esophagus:? Normal esophageal mucosa was noted. The Z-line was at 38 cm and irregular up to 36 cm. Cold forceps biopsies were taken from GE junction to rule out Nguyen's esophagus. A Tissue Cypher will also be sent if metaplasia present. * Stomach:? Normal gastric mucosa. Retroflexion was performed in the cardia that showed Hill grade III hiatal hernia. Cold forceps mapping biopsies were taken from the stomach as per Juliana protocol to screen for gastric ca due to extensive family hx. * Duodenum:? Normal duodenal mucosa. Findings: Mucosa: Normal colon and terminal ileum mucosa. Protruding lesions: * 1 sessile polyp of size 10 mm in ascending colon. Cold snare polypectomy was performed. The polyp was completely removed and retrieved. * Medium internal hemorrhoids without stigmata of recent bleeding.Excavated lesions: * Mild diverticulosis of sigmoid colon. Impression: 1. Irregular Z line (biopsy, tissue cypher) 2. Hiatal hernia 3. Normal stomach (biopsy) 4. Normal duodenum 5. Normal colon and terminal ileum mucosa 6. One polyp removed 7. Diverticulosis 8. Internal and external hemorrhoids Recommendations:?? * Follow-up path results * Avoid NSAIDs * Cont PPI * Repeat EGD in 5 years contingent on results * Repeat colonoscopy in 3 years if polyp is an adenoma BIOPSY Received: 01/21/25 Diagnosis A. Stomach, antrum lesser curvature, biopsy: Antral-type mucosa with mild chronic inactive inflammation; no Helicobacter organisms seen. B. Stomach, antrum greater curvature, biopsy: Antral-type mucosa with mild chronic inactive inflammation; no Helicobacter organisms seen. C. Stomach, incisura, biopsy: Antral-type mucosa with mild chronic inactive inflammation; no Helicobacter organisms seen. D. Stomach, body lesser curvature, biopsy: Oxyntic mucosa with mild chronic inactive inflammation; no Helicobacter organisms seen. E. Stomach, body greater curvature, biopsy: Oxyntic mucosa with mild chronic inactive inflammation; no Helicobacter organisms seen. F. GE junction, biopsy: - Cardiac-type mucosa with moderate chronic active inflammation; no intestinal metaplasia seen. - Squamous epithelium within normal limits. G. Colon, ascending, polypectomy: Tubular adenoma; negative for high-grade dysplasia or ca Assessment & Plan Assessment & Plan (1) GERD (gastroesophageal reflux disease): Code(s): K21.9 - Gastro-esophageal reflux disease without esophagitis Category: Medical (2) Erosive esophagitis: Code(s): K22.10 - Ulcer of esophagus without bleeding Category: Medical (3) Tubulovillous adenoma of colon: Comment: 09/2022= poor prep repeat in 1 year; 10/07/20 SCOPE, TVA repeat 1 year Code(s): D12.6 - Benign neoplasm of colon, unspecified Category: Medical (4) Irritable bowel syndrome with diarrhea: Code(s): K58.0 - Irritable bowel syndrome with diarrhea Category: Medical Plan Vietnamese #Keny Live She continues on dicyclomine 20 mg 3 times a day, esomeprazole 40 mg daily in the morning and famotidine 40 mg at night, and simethicone Subjective Patient presents for follow-up after recent endoscopy and colonoscopy and to review results. Reports doing better overall with current regimen. Notes gastrointestinal side effects from Zepbound used for weight loss, including gas, abdominal cramping, stomach pain, and nausea, which improved significantly after changing injection site per advice from her niece (a nurse). States increased intake of green vegetables and high-fiber fruits. Denies current bothersome hemorrhoid symptoms. Using esomeprazole in the morning and famotidine at night with good symptom control; also using dicyclomine for IBS and simethicone for gas. Reports weight loss from approximately 285 lb to 246 lb over about six months on GLP-1 therapy. States prior diagnosis of fatty liver has resolved per her other physician, with plans to reduce overall medication burden. Relevant Past Medical, Social, and Family History - History of internal and external hemorrhoids. - IBS treated with dicyclomine. - Prior fatty liver, now reportedly resolved. Objective - Colonoscopy: One polyp removed; described as large. Recommendation documented to repeat colonoscopy in 3 years. - Colonoscopy: Internal and external hemorrhoids noted. - EGD: Normal-appearing esophagus and stomach. Assessment & Plan Colonic polyp, status post colonoscopy: Single large polyp identified and removed on recent colonoscopy; patient considered at increased risk for polyp recurrence. - Repeat colonoscopy in 3 years. - Routine surveillance education provided. Hemorrhoids (internal and external): Known condition; currently asymptomatic. - Observation and routine conservative measures as needed. GERD/dyspepsia, controlled: EGD normal. Symptoms well controlled on current regimen. - Continue esomeprazole each morning. - Continue famotidine nightly. Irritable bowel syndrome with gas/bloating: Stable with current therapy. - Continue dicyclomine as prescribed. - Continue simethicone for gassiness as needed. Obesity, medical weight management on GLP-1 (Zepbound): Significant weight loss (~39 lb over ~6 months). GI side effects improved with injection site change; discussed that for weight-loss indication some patients maintain benefit at lower doses. - Continue current Zepbound and monitor for GI adverse effects. - Consider holding at a lower dose if symptoms recur while maintaining weight trajectory. History of fatty liver, improved: Patient reports normalization of liver status per outside clinician. - Continue current management; no changes today. - Follow up in 6 months. Medications: Refilled dicyclomine 20 mg PO TID 90 tabs 1RF esomeprazole magnesium 40 mg PO BEDTIME 30 caps 6RF K21.9 - Gastro-esophageal reflux disease without esophagitis famotidine 40 mg PO BEDTIME 30 tabs 6RF K21.9 - Gastro-esophageal reflux disease without esophagitis, K22.10 - Ulcer of esophagus without bleeding simethicone (Gas Relief (simethicone)) 180 mg PO QID 120 ea 6RF R14.0 - Abdominal distension (gaseous) Coding Level of Care Code Est Pt Level 3 (86511) Diagnoses GERD (gastroesophageal reflux disease) K21.9 Erosive esophagitis K22.10 Tubulovillous adenoma of colon D12.6 Irritable bowel syndrome with diarrhea K58.0
[2025-03-28 09:24] VITALS: BP 150/82; PULSE 80; BMI 40.2
--- OUTSIDE RECORDS SUMMARY | 2025-03-28 09:44 | XMS_ITS | Encounter Summary ---
Author Organization [employer] Address [address] [facility] 7 [place] [address] Care Team Providers Care Histology Aide Name Role Phone Chelsi Kauffman MD Primary Care Provide r Reason for Visit * Reason Comments Med Refill Encounter Details Date Type Department Care Team ([facility] st Contact Info) Description 03/31/2023 Refill [facility] MED & PEDS [address] [place] [address] Kiana Santos, DO [address] [place] [address] Vitamin D deficiency, unspecified Social History Tobacco [...] Care Team (Late st Contact Info) Description 04/14/2025 3:15 PM EST Office Visit [facility] MEDICINE [address] [place] [phone] Chelsi Kauffman MD [address] [place] [address] 05/16/2025 9:30 AM EST Office Visit [facility] ADULT DENTAL [address] [place] [address] Alireza, Nicole [address] [place] [address] 05/20/2025 9:45 AM EST Office Visit [facility] MEDICINE [address] [place] [phone] documented as of this encounter Visit Diagnoses Diagnosis Vitamin D deficiency, unspecified documented in this encounter Additional Health Concerns Assessment Noted Time PHQ-9 Depression Total Score: 24 023 2:25 PM EDT documented as of this encounter Care Teams Histology Aide Relationship Specialty Start Date End Date Chelsi Kauffman MD [address] [place] [phone] PCP - General Family Medicine 12/20/18 documented as of this encounter
--- OUTSIDE RECORDS SUMMARY | 2025-03-28 09:44 | XMS_ITS | Encounter Summary ---
Author Organization [employer] Address [address] [place] [address] [facility] [place] [address] Care Team Providers Care Sales Floor Associate Name Role Phone Chelsi Kauffman MD Primary Care Provide r Reason for Visit * Reason Comments Pre-visit Planning SDOH screening negat rody and tobacco screening negative Encounter Details Date Type Department Care Team ([facility] st Contact Info) Description 03/27/2025 Patient Outreach [facility] MEDICINE [address] [place] [address] Chelsi Kauffman MD [address] [place], [place] [phone] Pre-visit Planning (SDOH screening negative and tobacco screening negative) Social History Tobacco Use Types Packs/Day Years [...] as of this encounter Progress Notes * Deepa Vazquez - 03/27/2025 1:29 PM EST CC Deepa placed successful outbound call to patient for pre-visit planning. Patient name and confirmed. Patient confirms appt date and time, and has transportation. Biggest concern for appointment at this time is none Patient advised to bring to appointment a photo id and insurance card. Appropriate screenings completed in anticipation of appointment. documented in this encounter Plan of Treatment Upcoming Encounters Date Type Department Care Team (Late st Contact Info) Description 04/14/2025 3:15 PM EST Office Visit [facility] MEDICINE [address] [place] [phone] Chelsi Kauffman MD [address] [place], [place] [phone] 05/16/2025 9:30 AM EST Office Visit [facility] ADULT DENTAL [address] [place] [address] Nicole Lay [address] [place] [address] 05/20/2025 9:45 AM EST Office Visit [facility] MEDICINE [address] [place] [address] documented as of this encounter Goals Goal [...] documented as of this encounter Care Teams Sales Floor Associate Relationship Specialty Start Date End Date Chelsi Kauffman MD [address] [place] [address] PCP - General Family Medicine 12/20/18 documented as of this encounter
--- OUTSIDE RECORDS SUMMARY | 2025-03-28 09:44 | XMS_ITS | Encounter Summary ---
Author Organization [employer] Address [address] [facility] 7 [place] [address] Care Team Providers Care Metal Framer Name Role Phone Chelsi Kauffman MD Primary Care Provide r Reason for Visit * Reason Comments Med Refill Encounter Details Date Type Department Care Team ([facility] st Contact Info) Description 05/09/2023 Refill [facility] MEDICINE [address] [place] [address] Chelsi Kauffman MD [address] [place] [address] Migraine without aura, not refractory Social History [...] Description 04/14/2025 3:15 PM EST Office Visit [facility] MEDICINE [address] [place] [phone] Chelsi Kauffman MD [address] [place] [phone] 05/16/2025 9:30 AM EST Office Visit [facility] ADULT DENTAL [address] [place] [address] Derick Layaris [address] [place] [address] 05/20/2025 9:45 AM EST Office Visit [facility] MEDICINE [address] [place] [phone] documented as of this encounter Visit Diagnoses Diagnosis Migraine without aura, not refractory documented in this encounter Additional Health Concerns Assessment Noted Time PHQ-9 Depression Total Score: 0 04/25/19 24 9:30 AM EST documented as of this encounter Care Teams Metal Framer Relationship Specialty Start Date End Date Chelsi Kauffman MD [address] [place] [phone] PCP - General Family Medicine 12/20/18 documented as of this encounter
--- OUTSIDE RECORDS SUMMARY | 2025-03-28 09:44 | XMS_ITS | Clinical Summary ---
Author Organization [address] [facility] Address [address] [place] [address] Phone Care Team Providers Care Obedience Trainer Name Role Phone Jesse Kauffman MD Primary [...] AM EST Office Visit [facility] [place] [address] [place] [phone] Harjit Zabala, DPM Posterior tibial tendinitis [...] AM EDT Office Visit [facility] [place] [address] [facility] [address] [place] [address] Harjit Zabala, DPM [address] [phone] Health Maintenance Due Date Last [...] ID:[id number] Group ID:[id number] Type:Not on file Address: [place] [address] [place] [phone] MEDICA[place] - [place] Care Teams Obedience Trainer Relationship Specialty Start Date End Date Jesse Kauffman MD [address] [phone] PCP - General Internal Medicine 02/26/21
--- OUTSIDE RECORDS SUMMARY | 2025-03-28 09:44 | XMS_ITS | Encounter Summary ---
Author Organization [employer] Address [address] [place] [address] [place] [address] Care Team Providers Care Flying I Instructor Name Role Phone Chelsi Kauffman MD Primary Care Provide r Reason for Visit * Reason Onset Date Comments Reschedule 06/13/2023 Encounter Details Date Type Department Care Team ([facility] st Contact Info) Description 06/13/2023 Telephone [facility] MEDICINE [address] [place] [address] Chelsi Kauffman MD [address] [place] [address] Reschedule Social History Tobacco Use Types Packs/Day [...] 04/07 Derm appointment. Please contact pt at [phone] documented in this encounter Plan of Treatment Upcoming Encounters Date Type Department Care Team (Late st Contact Info) Description 04/14/2025 3:15 PM EST Office Visit [facility] MEDICINE [address] [place] [phone] Chelsi Kauffman MD [address] [place] [address] 05/16/2025 9:30 AM EST Office Visit [facility] ADULT DENTAL [address] [place] [address] Alireza Nciole [address] [place] [address] 05/20/2025 9:45 AM EST Office Visit [facility] MEDICINE [address] [place] [phone] documented as of this encounter Visit Diagnoses Not on filedocumented in this encounter Additional Health Concerns Assessment Noted Time PHQ-9 Depression Total Score: 0 04/25/19 24 9:30 AM EST documented as of this encounter Care Teams Flying I Instructor Relationship Specialty Start Date End Date Chelsi Kauffman MD [address] [place] [address] PCP - General Family Medicine 12/20/18 documented as of this encounter
--- OUTSIDE RECORDS SUMMARY | 2025-03-28 09:44 | XMS_ITS | Encounter Summary ---
Author Organization [email or web address] Address [address] [facility] 7t [place] [address] Care Team Providers Care Local Driver Name Role Phone Chelsi Kauffman MD Primary Care Provide r Encounter Details Date Type Department Care Team (Late st Contact Info) Description 01/17/2023 Abstract [facility] MEDICINE [address] [place] [address] Griselda Segal Social History Tobacco Use Types [...] Description 04/14/2025 3:15 PM EST Office Visit [facility] MEDICINE [address] [place] [address] Chelsi Kauffman MD 230 [place], [place] [phone] 05/16/2025 9:30 AM EST Office Visit [facility] ADULT DENTAL [address] [place], [place] [phone] Alireza, Nicole [address] [place] [address] 05/20/2025 9:45 AM EST Office Visit [facility] MEDICINE [address] [place] [address] documented as of this encounter Procedures Procedure [...] documented as of this encounter Care Teams Local Driver Relationship Specialty Start Date End Date Chelsi Kauffman MD [address] [place] [address] [phone] PCP - General Family Medicine 12/20/18 documented as of this encounter
--- OUTSIDE RECORDS SUMMARY | 2025-03-28 09:44 | XMS_ITS | Encounter Summary ---
Author Organization [employer] Address [address] [facility] 7 [place] [address] Care Team Providers Care Digital Computer Operator Name Role Phone Chelsi Kauffman MD Primary Care Provide r Reason for Visit * Reason Comments Med Refill Encounter Details Date Type Department Care Team ([facility] st Contact Info) Description 11/10/2023 Refill [facility] MEDICINE [address] [place] [address] Chelsi Kauffman MD [address] [place] [address] Chronic toe pain, left foot Social History [...] Description 04/14/2025 3:15 PM EST Office Visit [facility] MEDICINE [address] [place] [address] Chelsi Kauffman MD 230 [place] [address] 05/16/2025 9:30 AM EST Office Visit [facility] ADULT DENTAL [address] [place] [address] Nicole Lay [address] [place] [address] 05/20/2025 9:45 AM EST Office Visit [address] [address] documented as of this encounter Goals Goal [...] as of this encounter Care Teams Digital Computer Operator Relationship Specialty Start Date End Date Chelsi Kauffman MD [address] [place] [address] PCP - General Family Medicine 12/20/18 documented as of this encounter
--- OUTSIDE RECORDS SUMMARY | 2025-03-28 09:44 | XMS_ITS | Encounter Summary ---
Author Organization [employer] Address [address] [place] [address] [facility] [place] [address] Care Team Providers Care Sound Installation Worker Name Role Phone Chelsi Kauffman MD Primary Care Provide r Reason for Visit * Reason Comments Med Refill Encounter Details Date Type Department Care Team ([facility] st Contact Info) Description 04/04/2023 Refill [facility] MEDICINE 230 [place] [address] Chelsi Kauffman MD 230 [place] [address] Asthma in adult, moderate persistent, uncomplicated Social [...] Description 04/14/2025 3:15 PM EST Office Visit [facility] MEDICINE [address] [place] [address] Chelsi Kauffman MD [address] [place] [address] 05/16/2025 9:30 AM EST Office Visit [facility] ADULT DENTAL 230 [place] [address] Alireza, Nicole 230 [place] [address] 05/20/2025 9:45 AM EST Office Visit [facility] MEDICINE [address] [place] [address] documented as of this encounter Visit Diagnoses Diagnosis Asthma in adult, moderate persistent, uncomplicated documented in this encounter Additional Health Concerns Assessment Noted Time PHQ-9 Depression Total Score: 24 023 2:25 PM EDT documented as of this encounter Care Teams Sound Installation Worker Relationship Specialty Start Date End Date Chelsi Kauffman MD [address] [place] [address] PCP - General Family Medicine 12/20/18 documented as of this encounter
--- OUTSIDE RECORDS SUMMARY | 2025-03-28 09:44 | XMS_ITS | Encounter Summary ---
Author Organization [employer] Address [address] [place] [address] [facility] [address] Care Team Providers Care Master Rigger Name Role Phone Chelsi Kauffman MD Primary Care Provide r Reason for Visit * Reason Comments Med Refill Encounter Details Date Type Department Care Team (Late st Contact Info) Description 08/24/2022 Refill [facility] MED & PEDS [address] [place] [address] Mariana Meyer MD 230 [place] [address] Social History Tobacco Use Types Packs/Day Years [...] Upcoming Encounters Date Type Department Care Team ([facility] Contact Info) Description 04/14/2025 3:15 PM EST Office Visit [facility] MEDICINE [address] [place] [address] Chelsi Kauffman MD 230 [place] [address] 05/16/2025 9:30 AM EST Office Visit [facility] ADULT DENTAL [address] [place], [place] [phone] AlirezaDerickNicole 230 [place] [address] 05/20/2025 9:45 AM EST Office Visit [facility] MEDICINE [address] [place] [address] documented as of this encounter Visit Diagnoses Not on filedocumented in this encounter Additional Health Concerns Assessment Noted Time PHQ-9 Depression Total Score: 24 023 2:25 PM EDT documented as of this encounter Care Teams Master Rigger Relationship Specialty Start Date End Date Chelsi Kauffman MD [address] [place] [address] PCP - General Family Medicine 12/20/18 documented as of this encounter
--- OUTSIDE RECORDS SUMMARY | 2025-03-28 09:44 | XMS_ITS | Encounter Summary ---
Author Organization [employer] Address 75 [facility] 7t [place] [address] Care Team Providers Care Receiving Tank Operator Name Role Phone Chelsi Kauffman MD Primary Care Provide r Encounter Details Date Type Department Care Team (Late st Contact Info) Description 03/27/2025 Refill [facility] MED & PEDS [address] [place], [place] [phone] Chelsi Kauffman MD 230 [place] [address] Chronic toe pain, left foot Social History [...] the past 12 months, has t he [employer] gas, oil or water company threatened to [...] Description 04/14/2025 3:15 PM EST Office Visit [facility] MEDICINE [address] [place] [address] Chelsi Kauffman MD [address] [place] [address] 05/16/2025 9:30 AM EST Office Visit [facility] ADULT DENTAL [address] [place] [address] Derick Layaris 230 [place] [address] 05/20/2025 9:45 AM EST Office Visit [facility] MEDICINE [address] [place] [address] documented as of this encounter Goals Goal [...] documented as of this encounter Care Teams Receiving Tank Operator Relationship Specialty Start Date End Date Chelsi Kauffman MD [address] [place] [address] PCP - General Family Medicine 12/20/18 documented as of this encounter
--- OUTSIDE RECORDS SUMMARY | 2025-03-28 09:44 | XMS_ITS | Encounter Summary ---
Author Organization [employer] Address [address] [place] [address] Care Team Providers Care Fresh Food Manager Name Role Phone Chelsi Kauffman MD Primary Care Provide r Reason for Visit * Reason Comments Med Refill Encounter Details Date Type Department Care Team (Late st Contact Info) Description 09/18/2022 Refill [facility] MEDICINE [address] [place] [address] [phone] Chelsi Kauffman MD 230 [place], [place] [phone] Asthma in adult, moderate persistent, uncomplicated Social [...] Description 04/14/2025 3:15 PM EST Office Visit [facility] MEDICINE [address] [place] [address] [phone] Chelsi Kauffman MD 230 [place] [address] 05/16/2025 9:30 AM EST Office Visit [facility] ADULT DENTAL 230 [place] [address] Derick Layaris 230 [place] [address] 05/20/2025 9:45 AM EST Office Visit [facility] MEDICINE 230 [place] [address] documented as of this encounter Visit Diagnoses Diagnosis Asthma in adult, moderate persistent, uncomplicated documented in this encounter Additional Health Concerns Assessment Noted Time PHQ-9 Depression Total Score: 24 023 2:25 PM EDT documented as of this encounter Care Teams Fresh Food Manager Relationship Specialty Start Date End Date Chelsi Kauffman MD [address] [place] [address] PCP - General Family Medicine 12/20/18 documented as of this encounter
--- OUTSIDE RECORDS SUMMARY | 2025-03-28 09:44 | XMS_ITS | Encounter Summary ---
Author Organization [employer] Address [address] [place] [address] [facility] [place] [address] Care Team Providers Care Geriatric Psychiatrist Name Role Phone Chelsi Kauffman MD Primary Care Provide r Reason for Visit * Reason Comments Med Refill Encounter Details Date Type Department Care Team ([facility] st Contact Info) Description 03/16/2023 Refill [facility] MEDICINE 230 [place] [address] Chelsi Kauffman MD 230 [place] [address] Dry eyes Social History Tobacco Use Types [...] Description 04/14/2025 3:15 PM EST Office Visit [facility] MEDICINE [address] [place] [address] Chelsi Kauffman MD 230 [place] [address] 05/16/2025 9:30 AM EST Office Visit [facility] ADULT DENTAL [address] [place] [address] Alireza, Nicole [address] [place] [address] 05/20/2025 9:45 AM EST Office Visit [facility] MEDICINE [address] [place] [address] documented as of this encounter Visit Diagnoses Diagnosis Dry eyes Unspecified tear film insufficiency documented in this encounter Additional Health Concerns Assessment Noted Time PHQ-9 Depression Total Score: 24 023 2:25 PM EDT documented as of this encounter Care Teams Geriatric Psychiatrist Relationship Specialty Start Date End Date Chelsi Kauffman MD [address] [place] [address] [phone] PCP - General Family Medicine 12/20/18 documented as of this encounter
--- OUTSIDE RECORDS SUMMARY | 2025-03-28 09:44 | XMS_ITS | Encounter Summary ---
Author Organization [employer] Address [address] [facility] 7 [place] [address] Care Team Providers Care Physician President Name Role Phone Chelsi Kauffman MD Primary Care Provide r Encounter Details Date Type Department Care Team ([facility] st Contact Info) Description 03/25/2024 Telephone [facility] MEDICINE [address] [place] [address] Chelsi Kauffman MD 230 [place], [place] [phone] Social History Tobacco Use Types Packs/Day Years [...] Description 04/14/2025 3:15 PM EST Office Visit [facility] MEDICINE [address] [place] [address] Chelsi Kauffman MD [address] [place] [address] 05/16/2025 9:30 AM EST Office Visit [facility] ADULT DENTAL [address] [place] [address] Nicole Lay [address] [place] [address] 05/20/2025 9:45 AM EST Office Visit [facility] MEDICINE [address] [place] [address] documented as of this encounter Goals Goal [...] documented as of this encounter Care Teams Physician President Relationship Specialty Start Date End Date Chelsi Kauffman MD [address] [place] [address] PCP - General Family Medicine 12/20/18 documented as of this encounter
--- OUTSIDE RECORDS SUMMARY | 2025-03-28 09:44 | XMS_ITS | Encounter Summary ---
Author Organization [employer] Address [address] [place] [address] Care Team Providers Care Bulwark Carpenter Name Role Phone Chelsi Kauffman MD Primary Care Provide r Encounter Details Date Type Department Care Team (Latest Contact Info) Description 09/04/[address] [facility] CONVERSIONS Dental, Provider, DDS Social History [...] Description 04/14/2025 3:15 PM EST Office Visit [facility] MEDICINE [address] [place] [address] Chelsi Kauffman MD 230 [place] [address] 05/16/2025 9:30 AM EST Office Visit [facility] ADULT DENTAL [address] [place] [address] Nicole Lay [address] [place] [address] 05/20/2025 9:45 AM EST Office Visit [facility] MEDICINE [address] [place] [address] documented as of this encounter Visit Diagnoses Not on filedocumented in this encounter Care Teams Bulwark Carpenter Relationship Specialty Start Date End Date Chelsi Kauffman MD 230 [place] [address] PCP - General Family Medicine 12/20/18 documented as of this encounter
--- OUTSIDE RECORDS SUMMARY | 2025-03-28 09:44 | XMS_ITS | Encounter Summary ---
Author Organization [employer] Address [address] [place] [address] [facility] [place] [address] Care Team Providers Care Cadet Deck Name Role Phone Chelsi Kauffman MD Primary Care Provide r Reason for Visit * Reason Comments Med Refill Encounter Details Date Type Department Care Team ([facility] st Contact Info) Description 03/08/2023 Refill [facility] MEDICINE [address] [place] [address] Chelsi Kauffman MD 230 [place] [address] Migraine without aura, not refractory Social History [...] 3:15 PM EST Office Visit [facility] MEDICINE [address] [place] [address] Chelsi Kauffman MD 230 [place] [address] 05/16/2025 9:30 AM EST Office Visit [facility] ADULT DENTAL [address] [place] [address] Alireza, Nicole [address] [place] [address] 05/20/2025 9:45 AM EST Office Visit [facility] MEDICINE [address] [place] [address] documented as of this encounter Visit Diagnoses Diagnosis Migraine without aura, not refractory documented in this encounter Additional Health Concerns Assessment Noted Time PHQ-9 Depression Total Score: 24 023 2:25 PM EDT documented as of this encounter Care Teams Cadet Deck Relationship Specialty Start Date End Date Chelsi Kauffman MD [address] [place] [address] PCP - General Family Medicine 12/20/18 documented as of this encounter
--- OUTSIDE RECORDS SUMMARY | 2025-03-28 09:44 | XMS_ITS | Encounter Summary ---
Author Organization [employer] Address [address] [place] [address] Care Team Providers Care Foam Caster Name Role Phone Chelsi Kauffman MD Primary Care Provide r Reason for Visit * Reason Comments Med Refill Encounter Details Date Type Department Care Team (Late Contact Info) Description 08/29/2022 Refill [facility] CHC MED & PEDS [address] [place] [address] Chelsi Kauffman MD 230 [place] [address] Mild intermittent asthma without complication Social History [...] Upcoming Encounters Date Type Department Care Team ([facility] Contact Info) Description 04/14/2025 3:15 PM EST Office Visit [facility] MEDICINE [address] [place] [address] Chelsi Kauffman MD 230 [place] [address] 05/16/2025 9:30 AM EST Office Visit [facility] ADULT DENTAL [address] [place] [address] Derick Layaris [address] [place] [address] 05/20/2025 9:45 AM EST Office Visit [facility] MEDICINE [address] [place] [address] documented as of this encounter Visit Diagnoses Diagnosis Mild intermittent asthma without complication documented in this encounter Additional Health Concerns Assessment Noted Time PHQ-9 Depression Total Score: 24 023 2:25 PM EDT documented as of this encounter Care Teams Foam Caster Relationship Specialty Start Date End Date Chelsi Kauffman MD [address] [place] [address] PCP - General Family Medicine 12/20/18 documented as of this encounter
--- OUTSIDE RECORDS SUMMARY | 2025-03-28 09:44 | XMS_ITS | Encounter Summary ---
Author Organization [employer] Address [address] [place] [address] [facility] [place] [address] Care Team Providers Care Appraisal Analyst Name Role Phone Chelsi Kauffman MD Primary Care Provide r Reason for Visit * Reason Onset Date Comments Nurse Triage 03/24/2025 Encounter Details Date Type Department Care Team ([facility] st Contact Info) Description 03/24/2025 Telephone [facility] MEDICINE [address] [place] [address] Chelsi Kauffman MD [address] [place] [address] Nurse Triage Social History Tobacco Use Types [...] encounter Miscellaneous Notes * Telephone Encounter - Ela Cabello RN - 03/25/2025 3:30 PM EST [place] [id number]: Please advise patient to call back psych provider who change her medication and let them what is happening, for the other requests is better if she is evaluated in person chelsea advise patient to be been at [facility] or next available provider thank you Pt verbalizes understanding and agrees to contact psych provider. Pt scheduled for 04/14/25 at 3:15 pm with PCP, pt agrees to plan. * Telephone Encounter - Ela Cabello RN - 03/25/2025 2:19 PM [place] [id number] to triage for headaches, ear pain. Pt states that she is requesting a referral to audiology. States she called in to office and since it has been over 5 years she will need a new referral, also requesting referral to cardiology for check up. Pt states that recently psych provider changed dose of amitriptyline from 50 mg to 10 mg. Since this switch pt has been experiencing worsening vertigo and headaches, affecting ability to sleep. Pt requesting to change dose back. Nurse advised pt she may need to be seen by provider but message will be routed to advise. Pt agrees to plan. Protocol Used: Headache (Adult) Protocol-Based Disposition: See in Office or Video Visit within 2 Weeks Video visit offer not recorded Positive Triage Questions: * Headache is a chronic symptom (recurrent or ongoing AND lasting > 4 weeks) * Similar to previously diagnosed migraine headaches * All higher-acuity triage questions were negative. Care Advice Discussed: * Reasons To Call Back - Headache lasts over 72 hours - Stiff neck occurs (can't touch chin to chest) - You become worse * Telephone Encounter - Brenda Smith RN [...] all higher acuity questions Please contact at [phone] Belarusian speak documented in this encounter Plan of Treatment Upcoming Encounters Date Type Department Care Team (Late st Contact Info) Description 04/14/2025 3:15 PM EST Office Visit [facility] MEDICINE [address] [place] [address] Chelsi Kauffman MD [address] [place] [address] 05/16/2025 9:30 AM EST Office Visit [facility] ADULT DENTAL [address] [place] [address] Nicole Lay [address] [place] [address] 05/20/2025 9:45 AM EST Office Visit [facility] MEDICINE [address] [place] [address] documented as of this encounter Goals Goal [...] documented as of this encounter Care Teams Appraisal Analyst Relationship Specialty Start Date End Date Chelsi Kauffman MD [address] [place] [address] PCP - General Family Medicine 12/20/18 documented as of this encounter
--- OUTSIDE RECORDS SUMMARY | 2025-03-28 09:44 | XMS_ITS | Encounter Summary ---
Author Organization [employer] Address [address] [place] [address] Care Team Providers Care Laboratory Machinist Name Role Phone Chelsi Kauffman MD Primary Care Provide r Reason for Visit * Reason Onset Date Comments Durable Medical Equipment 07/28/2022 Encounter Details Date Type Department Care Team ([facility] st Contact Info) Description 07/28/[address] [facility] MEDICINE [address] [place] [address] Chelsi Kauffman MD [address] [place] [address] Durable Medical Equipment Social History Tobacco Use [...] EST Office Visit [facility] MEDICINE [address] [place] [address] Chelsi Kauffman MD [address] [place] [address] 05/16/2025 9:30 AM EST Office Visit [facility] ADULT DENTAL [address] [place] [address] Alireza, Nicole [address] [place] [address] 05/20/2025 9:45 AM EST Office Visit [facility] MEDICINE [address] [place] [address] documented as of this encounter Visit Diagnoses Not on filedocumented in this encounter Additional Health Concerns Assessment Noted Time PHQ-9 Depression Total Score: 24 07/26/ 023 2:25 PM EDT documented as of this encounter Care Teams Laboratory Machinist Relationship Specialty Start Date End Date Chelsi Kauffman MD [address] [place] [address] PCP - General Family Medicine 12/20/18 documented as of this encounter
--- OUTSIDE RECORDS SUMMARY | 2025-03-28 09:44 | XMS_ITS | Encounter Summary ---
Author Organization [employer] Address [address] [place] [address] [facility] [place] [address] Care Team Providers Care Swine Genetics Researcher Name Role Phone Chelsi Kauffman MD Primary Care Provide r Reason for Visit * Reason Comments Med Refill Encounter Details Date Type Department Care Team ([facility] st Contact Info) Description 12/16/2024 Refill [facility] MEDICINE [address] [place] [address] Chelsi Kauffman MD [address] [place] [address] Preventative health care; Hypertension, unspecified type Social [...] Description 04/14/2025 3:15 PM EST Office Visit [facility] MEDICINE [address] [place] [address] Chelsi Kauffman MD [address] [place] [address] 05/16/2025 9:30 AM EST Office Visit [facility] ADULT DENTAL [address] [place] [address] Nicole Lay [address] [place] [address] 05/20/2025 9:45 AM EST Office Visit [facility] MEDICINE [address] [place] [address] documented as of this encounter Goals Goal [...] documented as of this encounter Care Teams Swine Genetics Researcher Relationship Specialty Start Date End Date Chelsi Kauffman MD [address] [place] [address] PCP - General Family Medicine 12/20/18 documented as of this encounter
--- OUTSIDE RECORDS SUMMARY | 2025-03-28 09:44 | XMS_ITS | Encounter Summary ---
Author Organization [employer] Address [address] [place] [address] [place] [address] Care Team Providers Care Casino Host Name Role Phone Chelsi Kauffman MD Primary Care Provide r Reason for Visit * Reason Onset Date Comments triage 06/09/2022 Encounter Details Date Type Department Care Team ([facility] st Contact Info) Description 06/09/2022 Telephone [facility] MEDICINE [address] [place] [address] Chelsi Kauffman MD [address] [place] [address] triage Social History Tobacco Use Types Packs/Day [...] 06/09/2022 12:16 PM EST Triage call with [employer] Manager ID [id number] Pt reports third time with Covid. Covid [...] You become worse * Telephone Encounter - Eavn Valdivia - 06/09/2022 11:46 AM EST Symptoms: Rash or Redness - Widespread, COVID-19 Suspected Outcome: Schedule an urgent appointment (within 4 hours) or talk to a nurse or provider soon Reason: Fever The caller accepted this outcome Please contact pt at [phone] North Korean Speaker documented in this encounter Plan of Treatment Upcoming Encounters Date Type Department Care Team (Late st Contact Info) Description 04/14/2025 3:15 PM EST Office Visit [facility] MEDICINE [address] [place] [address] Chelsi Kauffman MD [address] [place] [address] 05/16/2025 9:30 AM EST Office Visit [facility] ADULT DENTAL [address] [place] [address] Derick Layaris [address] [place] [address] 05/20/2025 9:45 AM EST Office Visit [facility] MEDICINE [address] [place] [address] documented as of this encounter Visit Diagnoses Not on filedocumented in this encounter Care Teams Casino Host Relationship Specialty Start Date End Date Chelsi Kauffman MD [address] [place] [address] PCP - General Family Medicine 12/20/18 documented as of this encounter
--- OUTSIDE RECORDS SUMMARY | 2025-03-28 09:44 | XMS_ITS | Encounter Summary ---
Author Organization [employer] Address [address] [place] [address] Care Team Providers Care Asphalt Plant Worker Name Role Phone Chelsi Kauffman MD Primary Care Provide r Encounter Details Date Type Department Care Team (Latest Contact Info) Description 11/23/2021 Abstract [facility] CONVERSIONS Dental, Provider, DDS Social History [...] Description 04/14/2025 3:15 PM EST Office Visit [facility] MEDICINE [address] [place] [address] Chelsi Kauffman MD [address] [place] [address] 05/16/2025 9:30 AM EST Office Visit [facility] ADULT DENTAL [address] [place] [address] Nicole Lay [address] [place] [address] 05/20/2025 9:45 AM EST Office Visit [facility] MEDICINE [address] [place] [address] documented as of this encounter Visit Diagnoses Not on filedocumented in this encounter Care Teams Asphalt Plant Worker Relationship Specialty Start Date End Date Chelsi Kauffman MD [address] [place] [address] PCP - General Family Medicine 12/20/18 documented as of this encounter
--- OUTSIDE RECORDS SUMMARY | 2025-03-28 09:44 | XMS_ITS | Encounter Summary ---
Author Organization [employer] Address [address] [place] [address] [address] [place] [address] Care Team Providers Care Manager Resource Name Role Phone Chelsi Kauffman MD Primary Care Provide r Reason for Visit * Reason Comments Med Refill Encounter Details Date Type Department Care Team ([facility] st Contact Info) Description 03/31/2023 Refill [facility] MEDICINE [address] [place] [address] Chelsi Kauffman MD [address] [place] [address] Dermatitis, seborrheic; Polyarthralgia Social History Tobacco Use [...] Description 04/14/2025 3:15 PM EST Office Visit [facility] MEDICINE [address] [place] [address] Chelsi Kauffman MD [address] [place] [address] 05/16/2025 9:30 AM EST Office Visit [facility] ADULT DENTAL [address] [place] [address] Alireza, Nicole [address] [place] [address] 05/20/2025 9:45 AM EST Office Visit [facility] MEDICINE [address] [place] [address] documented as of this encounter Visit Diagnoses Diagnosis Dermatitis, seborrheic Unspecified seborrheic dermatitis Polyarthralgia Pain in joint, multiple sites documented in this encounter Additional Health Concerns Assessment Noted Time PHQ-9 Depression Total Score: 24 023 2:25 PM EDT documented as of this encounter Care Teams Manager Resource Relationship Specialty Start Date End Date Chelsi Kauffman MD [address] [place] [address] PCP - General Family Medicine 12/20/18 documented as of this encounter
--- OUTSIDE RECORDS SUMMARY | 2025-03-28 09:44 | XMS_ITS | Encounter Summary ---
Author Organization [employer] Address [address] [facility] 7 [place] [address] Care Team Providers Care Artist Scientific Name Role Phone Chelsi Kauffman MD Primary Care Provide r Reason for Visit * Reason Comments Med Refill Encounter Details Date Type Department Care Team ([facility] st Contact Info) Description 09/14/2023 Refill [facility] MEDICINE [address] [place] [address] Chelsi Kauffman MD [address] [place] [address] Polyarthralgia Social History Tobacco Use Types Packs/Day [...] Description 04/14/2025 3:15 PM EST Office Visit [facility] MEDICINE [address] [place] [address] Chelsi Kauffman MD [address] [place] [address] 05/16/2025 9:30 AM EST Office Visit [facility] ADULT DENTAL [address] [place] [address] Nicole Lay [address] [place] [address] 05/20/2025 9:45 AM EST Office Visit [address] [address] documented as of this encounter Goals Goal [...] documented as of this encounter Care Teams Artist Scientific Relationship Specialty Start Date End Date Chelsi Kauffman MD [address] [place] [address] PCP - General Family Medicine 12/20/18 documented as of this encounter
--- OUTSIDE RECORDS SUMMARY | 2025-03-28 09:45 | XMS_ITS | Clinical Summary ---
Author Organization [employer] Address [address] [place] [address] 7 [place] [address] Care Team Providers Care Corn Crop Supervisor Name Role Phone Chelsi Kauffman MD [...] daily. Active Blood Glucose Monitoring Suppl (FreeStyle Winston Lite) w/Device kitIndications:P rediabetes Use to test [...] 03/18/20 25 9:24 AM EST 025 Active polyvinyl alcohol (Liquifilm Tears) 1.4 [...] episode of recurrent major depressive disorder (CMS/HCC) ([facility]) TAKE 1 TABLET BY MOUTH EVERY MORNING 30 tablet 3 025 Active DULoxetine (Cymbalta) [address] capsuleIndicatio ns:Moderate episode of recurrent major depressive disorder (CMS/HCC) ([facility]) TAKE 1 CAPSULE BY MOUTH EVERY MORNING 30 capsule 3 025 Active gabapentin (Neurontin) 600 MG tabletIndication s:Chronic toe pain, left foot TAKE 1 TABLET BY MOUTH TWICE DAILY IN THE MORNING AND IN THE EVENING 60 tablet 1 025 Active Calcium Carb-Cholecalcif terri [...] episode of recurrent major depressive disorder (CMS/HCC) ([facility]) TAKE 1 TABLET BY MOUTH EVERY MORNING 30 tablet 3 025 2024 Discontinued DULoxetine (Cymbalta) [address] capsuleIndicatio ns:Moderate episode of recurrent major depressive disorder (CMS/HCC) (HCC) TAKE 1 CAPSULE BY MOUTH EVERY MORNING 30 capsule 3 025 2024 Discontinued gabapentin (Neurontin) 600 MG tabletIndication s:Chronic toe pain, left foot TAKE 1 TABLET BY MOUTH TWICE DAILY IN THE MORNING AND IN THE EVENING 60 tablet 1 025 2024 Discontinued(R eorder (will not trigger [...] lumbar anterolisthesis Rx: oxycodone 5mg BID Last STUDENT EDUCATION SPECIALIST Agreement: 03/18/25 Tier: III (Q4-6 months), Dr. [...] if is persistently high to contact me backing in machine tender pain 03/18/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 - Recommended watching [employer] videos fro stretching and exercises that can [...] organization. Date Type Department Care Team Description 03/27/2025 Patient Outreach [facility] MEDICINE [address] [place] [address] Chelsi Kauffman MD Pre-visit Planning (SDOH screening negative and tobacco screening negative) 03/27/2025 Refill [facility] [address] [place] [address] Chelsi Kauffman MD Chronic toe pain, left foot 03/24/[address] [facility] MED[facility]INE [address] [place] [address] Chelsi Kauffman MD Nurse Triage 03/20/[address] [address] Chelsi Kauffman MD Referral 03/18/2025 9:45 AM EST Office Visit [facility] MED[facility]INE [address] [place] [address] Mackenzie Whatley FNP Lumbar spondylosis (Primary Dx); Long-term current use of opiate analgesic 03/16/[address] [facility] [address] [place] [address] Chelsi Kauffman MD Moderate episode of recurrent major depressive disorder (CMS/HCC) (HCC); Chronic toe pain, left foot 03/14/2025 Orders Only [facility] [address] [place] [address] Chelsi Kaufmfan MD 03/12/2025 Refill [facility] [address] [place] [address] Chelsi Kauffman MD Chronic midline low back pain with right-sided sciatica; Polyarthralgia 03/09/[address] [facility] MED[facility] [address] [place] [address] Chelsi Kauffman MD Polyarthralgia 02/26/[address] [facility] [address] [place] [address] Mackenzie Whatley FNP Long-term current use of opiate analgesic 02/20/[address] [facility] [address] [place] [address] Chelsi Kauffman MD Mild persistent asthma without complication 02/12/2025 10:00 AM EST Immunization [facility] [address] [place] [address] Encounter for immunization 02/12/2025 Travel 02/12/[address] [facility] [address] [place] [address] Chelsi Kauffman MD Chronic midline low back pain with right-sided sciatica; Polyarthralgia; Mild intermittent asthma without complication 02/06/[address] [facility] [address] [place] [address] Chelsi Kauffman MD Vertigo 02/05/2025 11:00 AM EDT Office Visit [facility] ADULT DENTAL [address] [place] [address] Granados-Cowan, Aurora, DDS Ill-fitting dentures (Primary Dx) 02/05/[address] [facility] MEDICINE [address] [place] [address] Chelsi Kauffman MD Vitamin D deficiency, unspecified; Vertigo 02/03/[address] [facility] [address] [place] [address] Chelsi Kauffman MD Mild persistent asthma without complication 01/29/2025 11:30 AM EDT Office Visit [facility] OPTOMETRY [address] [place] [address] Rito, Kennedi, OD Presbyopia of both eyes (Primary Dx) 01/29/2025 Travel 01/21/2025 Orders Only GENERIC EXTERNAL DATA DEPARTMENT Provider, Generic External Data 01/18/[address] [facility] MED[facility]INE [address] [place] [address] Chelsi Kauffman MD Dry eye syndrome of bilateral lacrimal glands 01/16/[address] [facility] [address] [place] [address] Chelsi Kauffman MD Chronic midline low back pain with right-sided sciatica; Polyarthralgia 01/08/[address] [facility] MEDICINE [address] [place] [address] Chelsi Kauffman MD Chronic toe pain, left foot from Last 3 Months Immunizations Immunization Administration [...] 3:15 PM EST Office Visit [facility] MEDICINE [address] [place] [address] Chelsi Kauffman MD [address] [place] [address] 05/16/2025 9:30 AM EST Office Visit [facility] ADULT DENTAL [address] [place] [address] Nicole Lay [address] [place] [address] 05/20/2025 9:45 AM EST Office Visit [facility] MEDICINE [address] [place] [address] Health Maintenance Due Date Last Done Comments [...] 08/08/2024, 0 10/31/2023, 02/24/2023, Additional history exists Diabetes: Hemoglobin A1C 07/10/2025 025, 01/17/2024, 08/19/2022, Additional history exists Dental X-Ray: Bitewings 08/09/2025 08/09/19 25, 02/24/2023, 11/23/2021, Additional history exists Disability Screening 09/23/2025 09/23/2024 Tobacco Screening 02/17/2026 02/17/2025 Dental X-Ray: Full Mouth 02/25/2026 02/24/2023, 1209/2018 Mammogram 03/14/2026 03/14/2025, 02/09, 09/23/2021, Additional history exists SDOH Screening 03/27/2026 03/27/2025 Cervical Cancer Screening 07/03/2028 HPV/Cotest 07/03/2028 07/04/2023 [...] / Unknown 03/18/2025 10:37 AM EST Narrative Lucila Diaz RN - 03/18/2025 10:37 AM EST .UTOX cup Lot#[id number] Exp. 03/10/26 Internal Pass Control Mackenzie Whatley ASBESTOS ABATEMENT TECHNICIAN POINT OF CARE TEST ENTER/EDIT ORDERABLES Final Result * BI Mammogram Screening Tomosynthesis Bilateral (03/14/2025 10:50 AM EST) Anatomical Region Laterality Modality Breast Bilateral Mammography 03/14/2025 10:5 0 AM EST Narrative 03/17/2025 12:43 PM EST [facility] [address] [place] [address] Mammography Report Signed Patient: Chelsi Connors D MR#: [id number] : 1965 Acct:[id number] Age/Sex: 59 / F ADM Date: 03/14/25 Loc: POLO Attending Dr: Chelsi Reece MD Ordering Physician: Chelsi Kauffman MD Results: 1Negative Date of Service: 03/14/25 Follow Up: 1 Year From Orig inal Mammogram Procedure(s): MM tomosynthesis screening BI Accession Number(s): [id number] cc: Cehlsi Kauffman MD Reason For Exam: SCREENING EXAMINATION: [...] by: Taty Mccartney DO 03/17/2025 12:40 PM [facility] Dictated By: Taty Mccartney DO Signed By: <Electronically signed by Taty Mccartney DO in OV> 03/17/25 1240 DD/ 1050 TD/TT: 03/14/25 1100 Electrician Maintenance: Procedure Note Donotuseinterpreter, Image - 03/17/2025 [facility] [address] [place] [address] Mammography Report Signed Patient: Chelsi Connors DMR#: [id number] : 1965Acct:[id number] Age/Sex: 59 / FADM Date: 03/14/25 Loc: HO.MAMMO Attending Dr: Chelsi Reece MD Ordering Physician: Chelsi Kauffman MDResults: 1Negative Date of Service: 03/14/25Follow Up: 1 Year From Orig inal Mammogram Procedure(s): MM tomosynthesis screening BI Accession Number(s): [id number] cc: Chelsi Kauffman MD Reason For Exam: [...] 03/17/25 1240 DD/ 1050 TD/TT: 03/14/25 1100 Electrician Maintenance: Chelsi Reece MD IMG BI PROCEDURES Fin al Result * Hematoxylin and Eosin Stain (01/21/2025 12:44 PM EDT) 01/21/2025 12:4 4 PM EDT 01/21/2025 1:40 PM EDT [facility] - 01/23/2025 10:49 AM EDT ----- ------- Name: Chelsi Connors Age/Sex: 59/F : 1965 Unit#: [id number] Attend Dr: Domi Miller MD Re01/21/25 Status: [facility] Location: [facility] Disch: ----- ------- SPEC : [id number] RECD: 01/21/25 STATUS: OMEGA [place] NUM: [id number] HARVINDER: 01/21/[address] [facility] [address]: Domi Miller MD ENTERED: 01/21/25 SP TYPE: Surgical OTHR DR: Chelsi Kauffman MD ORDERED: HE Stain/, Gross Micro L4/, IHC/2, Special st. 2, H. pylori/2, AB/PAS/ Diagnosis A. Stomach, antrum [...] Chelsi Connors Age/Sex: 59/F : 1965 Unit#: [id number] Attend Dr: Domi Miller MD Re01/21/25 Status: [facility] Location: [facility] Disch: ----- ------- SPEC : [id number] RECD: 01/21/25 STATUS: BELLAYaneth MARISA NUM: [id number] HARVINDER: 01/21/[address] [facility] [address]: Domi Miller MD ENTERED: 01/21/25 [...] microscopic examination, 1 piece in cassette G. ([facility]) Special studies ordered and performed: Immunostain for H. pylori on A and E; AB/PAS stains on A, B, C, D, E and F IHC S/NG Disclaimer NOTE: Unless otherwise stated, all tissue is formalin-fixed and paraffin-embedded. Some or all of the immunohistochemical tests reported herein may have been developed and their performance characteristics determined by [facility]. They have not been cleared or approved by the U.S. Food and Drug Administration (FDA). However, the FDA CONTINUED ON NEXT PAGE ----- ------- Name: Chelsi Connors D Age/Sex: 59/F : 1965 Unit#: [id number] Attend Dr: Domi Miller MD Re01/21/25 Status: [facility] Location: HO.SSS Disch: ----- ------- SPEC : [id number] RECD: 01/21/25 STATUS: OMEGA CUNNINGHAM NUM: [id number] HARVINDER: 01/21/[address] [facility] [address]: Domi Miller MD ENTERED: 01/21/25 SP TYPE: Surgical OTHR DR: Chelsi Kauffman MD ORDERED: HE Stain/, Gross Micro L4/7, IHC/2, Special st. 2/, H. pylori/2, AB/PAS/6 IHC S/NG Disclaimer (Continued) has determined that such clearance or approval is not necessary. This laboratory is certified under the Clinical Laboratory Improvement Amendments of 1988 (CLIA) as qualified to perform high complexity clinical laboratory testing. Copies To: Chelsi Kauffman MD [address] [id number] Domi Miller MD [facility] [address] [place] [id number] [email or web address] ----- ------- Signed (signature on file) Dc Shaffer MD 01/23/25 1049 ----- ------- END OF REPORT Generic External Data Provider LAB BLOOD ORDERAB LES Final Result Performing Organization Address [facility]/ZIP Co de Phone Number [facility] [address] [place] [phone] * Glucose, Whole Blood (01/21/2025 11:08 AM EDT) Glucose, Whole Blood 106 60 - 115 mg/dL [facility] Comment:METER #: [id number] 01/21/2025 11:0 8 AM EDT 01/21/2025 11:15 AM EDT Generic External Data Provider LAB BLOOD ORDERAB LES Final Result Performing Organization Address [facility] de Phone Number [facility] [address] [place] [phone] * Hemoglobin A1c (07/10/2024 12:13 PM [...] patient sample. Estimated Average Glucose 117 mg/dL [facility] Comment:eAG = Estimated ave rage glucose which is %A1C expressed asaverage glucose, using the formula of the M4F-VdaepcaZynusfm Glucose study (ADAG), Diabetes Care, Vol.31,#8,Nov. 2007 Blood Venous blood specimen / Unknown 07/10/2024 12:13 PM EDT 07/10/2024 12:13 PM EDT us Chelsi Reece MD LAB BLOOD ORDERABLES Final Result [facility] [address] [place] [address] [phone] * (ABNORMAL) Lipid Panel, Standard (07/10/2024 12:13 PM EDT) Triglycerides 167(H) <150 mg/dL [facility] Comment:Desirable Triglyceri de: less than 150 mg/dLBorderline High Triglyceride 150-199 mg/dLHigh Triglyceride: 200-499 mg/dLVery High Triglyceride: greater than or equal to 5OO mg/dL Cholesterol 163 <200 mg/dL [facility] Comment:Desirable Cholestero l: less than 200 mg/dLBorderline High Cholesterol: 200-239 mg/dLHigh Cholesterol: greater than 239 mg/dL LDL Cholesterol Calculated 90 <100 mg/dL [facility] Comment:Desirable LDL: less than 100 mg/dLNear Optimal/Above Optimal LDL: 110- 129 mg/dLBorderline High LDL: 130-159 mg/dLHigh LDL: 160-189 mg/dLVery High LDL: greater than or equal to 190 mg/dL HDL Cholesterol 40(L) >40 mg/dL [facility] Comment:Desirable HDL: great er than 40 mg/dL Note: This HDL assay may give artificially low results in patients with liver disease. Blood Venous blood specimen / Unknown 07/10/2024 12:13 PM EDT 07/10/2024 12:13 PM EDT us Chelsi Reece MD LAB BLOOD ORDERABLES Final Result [facility] [address] [place] [address] [phone] * Image-Guided Pap with Age-Based Screening??with CT/NG,??Trichomonas (07/04/2023 3:39 PM EDT) Trichomonas (NAAT) NOT DETECTED NOT DETECTED [facility] Comment:The analytical perfo rmance characteristics of thisassay have been determined by [employer]. Themodifications have not been cleared or approved bythe FDA. This assay has been validated pursuant to theIA regulations and is used for clinical purposes.For additional information, please refer [email or web address].Freedom2/faq/Trichomonastma(This link is being provided for information/educational purposes only.)THIS TEST WAS PERFORMED AT:[facility] [place] [phone] HANEY MD CTNG Ref Lab NOT DETECTED NOT DETECTED [facility] NG Ref Lab NOT DETECTED NOT DETECTED [facility] Pap Vial Vaginal structure / Unknown 07/04/2023 3:39 PM EDT 07/10/2023 8:55 AM EDT Narrative [facility] - 07/11/2023 8:28 PM EDT Collection Date: [id number]: Vagina Chelsi Reece MD LAB CYTOLOGY ORDERABL ES Final Result [facility] [address] [place] [address] [phone] * HPV mRNA E6/E7 w/Reflex to HPV Genotypes 16, 18/45 (07/04/2023 3:39 PM EDT) HPV nRNA E6/E7 Not Detected Not Detected [facility] Comment:Methodology: Transcr iption-Mediated AmplificationThis assay detects E6/E7 viral messenger RNA (mRNA) from 14high-risk HPV types (16,18,31,33,35,39,45,51,52,56,58,59,66,68).Cervical sources are required for HPV testing.If a vaginal source from a patient who has had atotal hysterectomy with removal of cervix wassubmitted, please contact the testing laboratoryfor alternative testing options.For additional information, please refer tohttp://education.Freedom2/faq/KSU931r1(This link if provided for information/educational purposes only.)THIS TEST WAS PERFORMED AT:[facility] [place] [phone] HANEY MD HPV mRNA E6/E7 [facility] HPV 16 RNA [facility] HPV 18/45 RNA [facility] 07/04/2023 3:39 PM EDT 07/05/2023 2:00 PM EDT Chelsi Reece MD LAB CYTOLOGY ORDERABL ES Final Result Performing Organization Address [facility]/ZIP Co de Phone Number [facility] [address] [place] [address] [phone] * (ABNORMAL) Hepatitis C Ab (12/21/2022 10:55 AM EDT) Pathologist [facility] Hepatitis C Antibody Reactive( A) Nonreactive [facility] Comment:Presumptive evidence of antibodies to HCV. 12/21/2022 10:5 5 AM EDT 12/21/2022 10:55 AM EDT [facility] External Provider LAB BLO OD ORDERABLES Final Result Performing Organization Address [facility] Co de Phone Number [facility] [address] [place] [address] [phone] * HIV Ab/Ag ([facility]) (12/21/2022 10:55 AM EDT) HIV AB/AG Nonreactive Nonreactive [facility] Comment:HIV-1 p24 Ag and/or HIV-1/HIV-2 Ab not detected.A test result that is nonreactive does not exclude thepossibility of exposure to or infection with HIV-1 and/orHIV-2. Nonreactive results in this assay for individualswith prior exposure to HIV-1 and/or HIV-2 may be due toantigen and antibody levels that are below the limit ofdetection of this assay.The [employer] HIV Ag/Ab Combo assay result andsupplemental assay results should be interpreted inconjunction with the patient's clinical presentation,history and other laboratory results. If the results areinconsistent with clinical evidence, additional testing issuggested to confirm the result. 12/21/2022 10:5 5 AM EDT 12/21/2022 10:55 AM EDT us Generic External Data Provider LAB BLOOD ORDERAB LES Final Result [facility] [address] [place] [address] [phone] * Colonoscopy (08/25/2022) Colonoscopy Normal Normal Narrative Griselda Segal - 08/25/2022 Recommended 1 year follow up due to poor prep us Historical Provider HEALTH MAINTENANCE Final Result from Last 3 Months or Most Recently Relevant to Health Maintenance Insurance [facility] < [address] [place] [id number] [facility] Care Teams Corn Crop Supervisor Relationship Specialty Start Date End Date Chelsi Kauffman MD [address] [place] [phone] PCP - General Family Medicine 12/20/18
--- OUTSIDE RECORDS SUMMARY | 2025-03-28 09:45 | XMS_ITS | Encounter Summary ---
Author Organization [employer] Address [address] [place] [address] [place] [address] Care Team Providers Care Pluck Trimmer Name Role Phone Chelsi Kauffman MD Primary Care Provide r Reason for Visit * Reason Onset Date Comments Referral 08/12/2024 Encounter Details Date Type Department Care Team ([facility] st Contact Info) Description 08/12/2024 Telephone [facility] [address] [place] [address] Chelsi Kauffman MD [address] [place] [address] Referral Social History Tobacco Use Types Packs/Day [...] : DATE: 08/12/2024 TIME: 10:00am Address: [address] [place] [address] Visits: 1 Facility Name: [facility] Type of Specialist: physical therapy DX:H81.13 Provider : not provided Provider NPI : Facility NPI: [id number] Phone # : [phone] Fax #: [phone] documented in this encounter Plan of Treatment Upcoming Encounters Date Type Department Care Team ([facility] Contact Info) Description 04/14/2025 3:15 PM EST Office Visit [facility] [address] [place] [address] Chelsi Kauffman MD [address] [place] [address] 05/16/2025 9:30 AM EST Office Visit [facility] ADULT DENTAL [address] [place] [address] Nicole Lay [address] [place] [address] 05/20/2025 9:45 AM EST Office Visit [facility] MED[facility] [address] [place] [address] documented as of this encounter Goals Goal [...] documented as of this encounter Care Teams Pluck Trimmer Relationship Specialty Start Date End Date Chelsi Kauffman MD [address] [place] [address] PCP - General Family Medicine 12/20/18 documented as of this encounter
--- OUTSIDE RECORDS SUMMARY | 2025-03-28 09:45 | XMS_ITS | Encounter Summary ---
Author Organization [employer] Address [address] [facility] 7 [place] [address] Care Team Providers Care Detailer Name Role Phone Chelsi Kauffman MD Primary Care Provide r Encounter Details Date Type Department Care Team (Late st Contact Info) Description 05/06/2024 Orders Only [facility] MED[facility] [address] [place], [place] [phone] Mariana Meyer MD 230 [place] [address] Social History Tobacco Use Types Packs/Day Years [...] 3:15 PM EST Office Visit [facility] [address] [place] [address] Chelsi Kauffman MD [address] [place] [address] 05/16/2025 9:30 AM EST Office Visit [facility] ADULT DENTAL [address] [place] [address] Nicole Lay 230 [place] [address] 05/20/2025 9:45 AM EST Office Visit [facility] [address] [place] [address] documented as of this encounter Goals [...] documented as of this encounter Care Teams Detailer Relationship Specialty Start Date End Date Chelsi Kauffman MD 230 [place] [address] PCP - General Family Medicine 12/20/18 documented as of this encounter
--- OUTSIDE RECORDS SUMMARY | 2025-03-28 09:45 | XMS_ITS | Encounter Summary ---
Author Organization [employer] Address [address] [place] [address] 7 [place] [address] Care Team Providers Care Foundry Worker General Name Role Phone Chelsi Kauffman MD Primary Care Provide r Reason for Visit * Reason Comments Med Refill Encounter Details Date Type Department Care Team ([facility] st Contact Info) Description 05/06/2024 Refill [facility] 230 [place] [address] Chelsi Kauffman MD 230 [place] [address] Mild intermittent asthma without complication; Asthma in [...] the past 12 months, has t he [employer], gas, oil or water [employer] threatened to shut off services in your [...] Description 04/14/2025 3:15 PM EST Office Visit [facility] [address] [place] [address] Chelsi Kauffman MD [address] [place] [address] 05/16/2025 9:30 AM EST Office Visit [facility] ADULT DENTAL [address] [place] [address] Nicole Lay 230 [place] [address] 05/20/2025 9:45 AM EST Office Visit [facility] [address] [place] [address] documented as of this encounter Goals Goal [...] documented as of this encounter Care Teams Foundry Worker General Relationship Specialty Start Date End Date Chelsi Kauffman MD [address] [place] [address] PCP - General Family Medicine 12/20/18 documented as of this encounter
--- OUTSIDE RECORDS SUMMARY | 2025-03-28 09:45 | XMS_ITS | Encounter Summary ---
Author Organization [employer] Address [address] [place] [address] [place] [address] Care Team Providers Care Onion Farmer Name Role Phone Chelsi Kauffman MD Primary Care Provide r Reason for Visit * Reason Onset Date Comments Med Refill 05/30/2024 Encounter Details Date Type Department Care Team (Late st Contact Info) Description 05/30/2024 Refill [facility] [address] [place] [address] Chelsi Kauffman MD 230 [place] [address] Social History Tobacco Use Types Packs/Day Years [...] MG/0.5ML solution auto-injector To be sent to: [facility] - [place], [place] - [address] [place] [address] documented in this encounter Plan of Treatment Upcoming Encounters Date Type Department Care Team ([facility] st Contact Info) Description 04/14/2025 3:15 PM EST Office [facility] [address] [place] [address] Chelsi Kauffman MD 230 [place] [address] 05/16/2025 9:30 AM EST Office Visit [facility] [address] [place] [address] [place] [address] Nicole Lay 230 [place] [address] 05/20/2025 9:45 AM EST Office Visit [facility] [address] [place] [address] documented as of this encounter Goals Goal [...] documented as of this encounter Care Teams Onion Farmer Relationship Specialty Start Date End Date Chelsi Kauffman MD 230 [place] [address] PCP - General Family Medicine 12/20/18 documented as of this encounter
--- OUTSIDE RECORDS SUMMARY | 2025-03-28 09:45 | XMS_ITS | Encounter Summary ---
Author Organization [employer] Address [address] [place] [address] [facility] [place] [address] Care Team Providers Care Truck Repair Service Estimator Name Role Phone Chelsi Kauffman MD Primary Care Provide r Reason for Referral * Consultation (Routine) - Closed Specialty Diagnoses / Procedures Referred By Contac t Referred To Contact Physical Therapy Diagnoses Benign paroxysmal vertigo, unspecified laterality Christine Laurent MD [address] [place] [address] Phone: tel: fax: [facility] [address] [place] [address] Phone: tel: fax: Referral ID Status Reason Start Date Expiration Date V isits Requested Visits Authorized [id number] Closed Specialty Services Required 04/26/2024 04/26/2025 1 1 Encounter Details Date Type Department Care Team (Late st Contact Info) Description 04/26/2024 Orders Only [facility] MED[facility] [address] [place] [address] [phone] Christine Laurent MD 230 [place], [place] [phone] Benign paroxysmal vertigo, unspecified laterality (Primary Dx) [...] Description 04/14/2025 3:15 PM EST Office Visit [facility] 230 [place] [address] Chelsi Kauffman MD 230 [place] [address] 05/16/2025 9:30 AM EST Office Visit [facility] ADULT DENTAL 230 [place] [address] Nicole Lay 230 [place] [address] 05/20/2025 9:45 AM EST Office Visit [facility] MED[facility] 230 [place] [address] Scheduled Referrals Name Type Priority Associated Diagnoses [...] as of this encounter Care Teams Truck Repair Service Estimator Relationship Specialty Start Date End Date Chelsi Kauffman MD 230 [place] [address] PCP - General Family Medicine 12/20/18 documented as of this encounter
== END 2025-03-28 09:55 | disposition home or self-care (01) ==
LOC: HO.HGI 09:14
PROVIDERS: PCP Family Medicine; Visit Provider Nurse Practitioner
DX: K21.9 Gastro-esophageal reflux disease without esophagitis (principal); K22.10 Ulcer of esophagus without bleeding; D12.6 Benign neoplasm of colon, unspecified; K58.0 Irritable bowel syndrome with diarrhea
CPT/HCPCS: 99213

== ENCOUNTER → 2025-03-28 09:13 | Outpatient (BNVA) | payer OTHER, SELFPAY | PROVIDERS: PCP Family Medicine; Visit Provider Nurse Practitioner | DX: K21.9 Gastro-esophageal reflux disease without esophagitis (principal); K22.10 Ulcer of esophagus without bleeding; D12.6 Benign neoplasm of colon, unspecified; K58.0 Irritable bowel syndrome with diarrhea; Z79.899 Other long term (current) drug therapy | CPT/HCPCS: 99212 ==

== ENCOUNTER 2025-04-07 08:12 | Outpatient (REF) | payer OTHER, SELFPAY ==
--- NOTE | ~2025-04-07 | XR_ITS ---
EXAMINATION: XR SHOULDER 2 OR MORE VIEWS BILATERAL HISTORY: M25.519 - Pain in unspecified shoulder COMPARISON: Comparison is made with the prior examination dated 08/11/2022. FINDINGS: Six views of the bilateral shoulders are submitted. Osseous mineralization is normal. There is no fracture or dislocation. On the right, there is moderate degenerative change of the glenohumeral joint with osteophyte formation. There is mild degenerative change of the AC joint. The humeral head appears high riding, suggestive of rotator cuff disease. On the left, there is moderate degenerative change of the glenohumeral and acromioclavicular joints with joint space narrowing and osteophyte formation. The humeral head appears high riding, suggestive of rotator cuff disease. The soft tissues are unremarkable. XR/XR Shoulder Jona min 2V IMPRESSION: Degenerative changes of the bilateral shoulders as described. Probable bilateral rotator cuff disease. Electronically signed by: Robert Oliveira MD 04/07/2025 10:59 AM KIRILL
--- OUTSIDE RECORDS SUMMARY | 2025-04-08 09:43 | XMS_ITS | Encounter Summary ---
Author Organization [employer] Address [address] [place] [address] Care Team Providers Care Manager Target Name Role Phone Chelsi Kauffman MD Primary Care Provide r Reason for Visit * Reason Comments Med Refill Encounter Details Date Type Department Care Team (Late Contact Info) Description 08/29/2022 Refill [facility] MED & PEDS [address] [place] [address] Chelsi Kauffman MD 230 [place] [address] Mild intermittent asthma without complication Social History [...] Upcoming Encounters Date Type Department Care Team ([facility] Contact Info) Description 04/14/2025 3:15 PM EST Office Visit [facility] MEDICINE [address] [place] [address] Chelsi Kauffman MD 230 [place] [address] 05/16/2025 9:30 AM EST Office Visit [facility] ADULT DENTAL [address] [place] [address] Derick Layaris [address] [place] [address] 05/20/2025 9:45 AM EST Office Visit [facility] MEDICINE [address] [place] [address] documented as of this encounter Visit Diagnoses Diagnosis Mild intermittent asthma without complication documented in this encounter Additional Health Concerns Assessment Noted Time PHQ-9 Depression Total Score: 24 023 2:25 PM EDT documented as of this encounter Care Teams Manager Target Relationship Specialty Start Date End Date Chelsi Kauffman MD [address] [place] [address] PCP - General Family Medicine 12/20/18 documented as of this encounter
--- OUTSIDE RECORDS SUMMARY | 2025-04-08 09:43 | XMS_ITS | Encounter Summary ---
Author Organization [employer] Address [address] [place] [address] [facility] [place] [address] Care Team Providers Care Script Girl Name Role Phone Chelsi Kauffman MD Primary Care Provide r Reason for Visit * Reason Comments Med Refill Encounter Details Date Type Department Care Team ([facility] st Contact Info) Description 03/31/[address] [facility] MEDICINE [address] [place] [address] Chelsi Kauffman MD 230 [place] [address] Dermatitis, seborrheic; Polyarthralgia Social History Tobacco Use [...] 04/14/2025 3:15 PM EST Office Visit [facility] MEDICINE [address] [place] [address] Chelsi Kauffman MD [address] [place] [address] 05/16/2025 9:30 AM EST Office Visit [facility] ADULT DENTAL [address] [place] [address] Alireza, Nicole [address] [place] [address] 05/20/2025 9:45 AM EST Office Visit [facility] MEDICINE [address] [place] [address] documented as of this encounter Visit Diagnoses Diagnosis Dermatitis, seborrheic Unspecified seborrheic dermatitis Polyarthralgia Pain in joint, multiple sites documented in this encounter Additional Health Concerns Assessment Noted Time PHQ-9 Depression Total Score: 24 023 2:25 PM EDT documented as of this encounter Care Teams Script Girl Relationship Specialty Start Date End Date Chelsi Kauffman MD [address] [place] [address] PCP - General Family Medicine 12/20/18 documented as of this encounter
--- OUTSIDE RECORDS SUMMARY | 2025-04-08 09:43 | XMS_ITS | Encounter Summary ---
Author Organization [employer] Address [address] [place] [address] [place] [address] Care Team Providers Care Beater Dumper Name Role Phone Chelsi Kauffman MD Primary Care Provide r Reason for Visit * Reason Onset Date Comments triage 06/09/2022 Encounter Details Date Type Department Care Team ([facility] st Contact Info) Description 06/09/2022 Telephone [facility] MEDICINE 230 [place] [address] Chelsi Kauffman MD 230 [place] [address] triage Social History Tobacco Use Types Packs/Day [...] 06/09/2022 12:16 PM EST Triage call with [employer] [place] ID [id number] Pt reports third time with Covid. Covid [...] accepted this outcome Please contact pt at [phone] Citizen Of [place] Speaker documented in this encounter Plan of Treatment Upcoming Encounters Date Type Department Care Team (Late st Contact Info) Description 04/14/2025 3:15 PM EST Office Visit [facility] MEDICINE [address] [place] [address] Chelsi Kauffman MD [address] [place] [address] 05/16/2025 9:30 AM EST Office Visit [facility] ADULT DENTAL [address] [place] [address] Derick Layaris [address] [place] [address] 05/20/2025 9:45 AM EST Office Visit [facility] MEDICINE 230 [place] [address] documented as of this encounter Visit Diagnoses Not on filedocumented in this encounter Care Teams Beater Dumper Relationship Specialty Start Date End Date Chelsi Kauffman MD 230 [place] [address] PCP - General Family Medicine 12/20/18 documented as of this encounter
--- OUTSIDE RECORDS SUMMARY | 2025-04-08 09:43 | XMS_ITS | Encounter Summary ---
Author Organization [employer] Address [address] [place] [address] Care Team Providers Care Procedures Rn Name Role Phone Chelsi Kauffman MD Primary Care Provide r Reason for Visit * Reason Onset Date Comments Durable Medical Equipment 07/28/2022 Encounter Details Date Type Department Care Team ([facility] st Contact Info) Description 07/28/2022 Telephone [facility] MEDICINE [address] [place] [address] Chelsi Kauffman MD [address] [place] [address] Durable Medical Equipment Social History Tobacco Use [...] Description 04/14/2025 3:15 PM EST Office Visit [facility] MEDICINE [address] [place] [address] Chelsi Kauffman MD 230 [place] [address] 05/16/2025 9:30 AM EST Office Visit [facility] ADULT DENTAL [address] [place] [address] Alireza, Nicole [address] [place] [address] 05/20/2025 9:45 AM EST Office Visit [facility] MEDICINE [address] [place] [address] documented as of this encounter Visit Diagnoses Not on filedocumented in this encounter Additional Health Concerns Assessment Noted Time PHQ-9 Depression Total Score: 24 07/26/ 023 2:25 PM EDT documented as of this encounter Care Teams Procedures Rn Relationship Specialty Start Date End Date Chelsi Kauffman MD 230 [place] [address] PCP - General Family Medicine 12/20/18 documented as of this encounter
--- OUTSIDE RECORDS SUMMARY | 2025-04-08 09:43 | XMS_ITS | Encounter Summary ---
Author Organization [employer] Address [address] [place] [address] Care Team Providers Care Redevelopment Specialist Name Role Phone Chelsi Kauffman MD Primary Care Provide r Reason for Visit * Reason Comments Med Refill Encounter Details Date Type Department Care Team (Late st Contact Info) Description 09/18/2022 Refill [facility] MEDICINE [address] [place] [address] [phone] Chelsi Kauffman MD 230 [place], [place] [phone] Asthma in adult, moderate persistent, uncomplicated Social [...] 04/14/2025 3:15 PM EST Office Visit [facility] MEDICINE [address] [place] [address] [phone] Chelsi Kauffman MD 230 [place] [address] 05/16/2025 9:30 AM EST Office Visit [facility] ADULT DENTAL [address] [place] [address] Derick Layaris [address] [place] [address] 05/20/2025 9:45 AM EST Office Visit [facility] MEDICINE [address] [place] [address] documented as of this encounter Visit Diagnoses Diagnosis Asthma in adult, moderate persistent, uncomplicated documented in this encounter Additional Health Concerns Assessment Noted Time PHQ-9 Depression Total Score: 24 023 2:25 PM EDT documented as of this encounter Care Teams Redevelopment Specialist Relationship Specialty Start Date End Date Chelsi Kauffman MD 230 [place] [address] PCP - General Family Medicine 12/20/18 documented as of this encounter
--- OUTSIDE RECORDS SUMMARY | 2025-04-08 09:43 | XMS_ITS | Encounter Summary ---
Author Organization [employer] Address [address] [place] [address] [place] [address] Care Team Providers Care Loan Counselor Name Role Phone Chelsi Kauffman MD Primary Care Provide r Reason for Visit * Reason Comments Med Refill Encounter Details Date Type Department Care Team (Late st Contact Info) Description 08/24/2022 Refill [facility] CHC MED & PEDS [address] [place] [address] Mariana Meyer MD 230 [place] [address] Social History Tobacco Use Types Packs/Day Years [...] Upcoming Encounters Date Type Department Care Team ([facility] Contact Info) Description 04/14/2025 3:15 PM EST Office Visit [facility] MEDICINE 230 [place] [address] Chelsi Kauffman MD [address] [place] [address] 05/16/2025 9:30 AM EST Office Visit [facility] ADULT DENTAL 230 [place], [place] [phone] AlirezaDerickNicole 230 [place] [address] 05/20/2025 9:45 AM EST Office Visit [facility] MEDICINE [address] [place] [address] documented as of this encounter Visit Diagnoses Not on filedocumented in this encounter Additional Health Concerns Assessment Noted Time PHQ-9 Depression Total Score: 24 023 2:25 PM EDT documented as of this encounter Care Teams Loan Counselor Relationship Specialty Start Date End Date Chelsi Kauffman MD [address] [place] [address] PCP - General Family Medicine 12/20/18 documented as of this encounter
--- OUTSIDE RECORDS SUMMARY | 2025-04-08 09:43 | XMS_ITS | Encounter Summary ---
Author Organization [employer] Address [address] [place] [address] [facility] [place] [address] Care Team Providers Care Workday Director Name Role Phone Chelsi Kauffman MD Primary Care Provide r Reason for Visit * Reason Comments Med Refill Encounter Details Date Type Department Care Team ([facility] st Contact Info) Description 04/04/2023 Refill [facility] MEDICINE [address] [place] [address] Chelsi Kauffman MD 230 [place] [address] Asthma in adult, moderate persistent, uncomplicated Social [...] 3:15 PM EST Office Visit [facility] MEDICINE [address] [place] [address] Chelsi Kauffman MD [address] [place] [address] 05/16/2025 9:30 AM EST Office Visit [facility] ADULT DENTAL 230 [place] [address] Alireza, Nicole [address] [place] [address] 05/20/2025 9:45 AM EST Office Visit [facility] MEDICINE [address] [place] [address] documented as of this encounter Visit Diagnoses Diagnosis Asthma in adult, moderate persistent, uncomplicated documented in this encounter Additional Health Concerns Assessment Noted Time PHQ-9 Depression Total Score: 24 023 2:25 PM EDT documented as of this encounter Care Teams Workday Director Relationship Specialty Start Date End Date Chelsi Kauffman MD [address] [place] [address] PCP - General Family Medicine 12/20/18 documented as of this encounter
--- OUTSIDE RECORDS SUMMARY | 2025-04-08 09:43 | XMS_ITS | Encounter Summary ---
Author Organization [employer] Address 75 [facility] 7 [place] [address] Care Team Providers Care Helicopter Pilot Name Role Phone Chelsi Kauffman MD Primary Care Provide r Reason for Visit * Reason Comments Med Refill Encounter Details Date Type Department Care Team ([facility] st Contact Info) Description 11/10/2023 Refill [facility] MEDICINE 230 [place] [address] Chelsi Kauffman MD 230 [place] [address] Chronic toe pain, left foot Social History [...] Description 04/14/2025 3:15 PM EST Office Visit [facility] MEDICINE [address] [place] [address] Chelsi Kauffman MD 230 [place] [address] 05/16/2025 9:30 AM EST Office Visit [facility] ADULT DENTAL [address] [place] [address] Nicole Lay 230 [place] [address] 05/20/2025 9:45 AM EST Office Visit [address] [address] documented as of this encounter Goals Goal [...] documented as of this encounter Care Teams Helicopter Pilot Relationship Specialty Start Date End Date Chelsi Kauffman MD 230 [place] [address] PCP - General Family Medicine 12/20/18 documented as of this encounter
--- OUTSIDE RECORDS SUMMARY | 2025-04-08 09:43 | XMS_ITS | Clinical Summary ---
Author Organization [facility] Address 175 [place] [address] Phone Care Team Providers Care Brick Shader Name Role Phone Jesse Kauffman MD Primary [...] AM EST Office Visit [facility] [address] [place] [phone] Harjit Zabala, DPM Posterior tibial tendinitis [...] AM EDT Office Visit [facility] [address] [facility] 250 [place] [address] Harjit Zabala, DPM [address] [address] Health Maintenance Due Date Last [...] ID:[id number] Group ID:[id number] Type:Not on file Address: [place] [address] [place] [id number] MEDICAID - [place] Care Teams Brick Shader Relationship Specialty Start Date End Date Jesse Kauffman MD [address] [phone] PCP - General Internal Medicine 02/26/21
--- OUTSIDE RECORDS SUMMARY | 2025-04-08 09:44 | XMS_ITS | Encounter Summary ---
Author Organization [employer] Address [address] [place] [address] [place] [address] Care Team Providers Care Pleater Name Role Phone Chelsi Kauffman MD Primary Care Provide r Reason for Visit * Reason Onset Date Comments Reschedule 06/13/2023 Encounter Details Date Type Department Care Team ([facility] st Contact Info) Description 06/13/2023 Telephone [facility] MEDICINE 230 [place] [address] Chelsi Kauffman MD 230 [place] [address] Reschedule Social History Tobacco Use Types Packs/Day [...] 04/07 Derm appointment. Please contact pt at [phone] documented in this encounter Plan of Treatment Upcoming Encounters Date Type Department Care Team (Late st Contact Info) Description 04/14/2025 3:15 PM EST Office Visit [facility] MEDICINE [address] [place] [address] Chelsi Kauffman MD 230 [place] [address] 05/16/2025 9:30 AM EST Office Visit [facility] ADULT DENTAL 230 [place] [address] Alireza Nicole 230 [place] [address] 05/20/2025 9:45 AM EST Office Visit [facility] MEDICINE [address] [place] [address] documented as of this encounter Visit Diagnoses Not on filedocumented in this encounter Additional Health Concerns Assessment Noted Time PHQ-9 Depression Total Score: 0 04/25/19 24 9:30 AM EST documented as of this encounter Care Teams Pleater Relationship Specialty Start Date End Date Chelsi Kauffman MD 230 [place] [address] PCP - General Family Medicine 12/20/18 documented as of this encounter
--- OUTSIDE RECORDS SUMMARY | 2025-04-08 09:44 | XMS_ITS | Encounter Summary ---
Author Organization [employer] Address 75 [facility] 7 [place] [address] Care Team Providers Care Pumpman Name Role Phone Chelsi Kauffman MD Primary Care Provide r Encounter Details Date Type Department Care Team (Late st Contact Info) Description 05/06/2024 Orders Only [facility] MEDICINE 230 [place], [place] [phone] Mariana Meyer MD 230 [place] [address] Social History Tobacco Use Types Packs/Day Years [...] Description 04/14/2025 3:15 PM EST Office Visit [facility] MEDICINE [address] [place] [address] Chelsi Kauffman MD [address] [place] [address] 05/16/2025 9:30 AM EST Office Visit [facility] ADULT DENTAL [address] [place] [address] Nicole Lay 230 [place] [address] 05/20/2025 9:45 AM EST Office Visit [facility] MEDICINE [address] [place] [address] documented as of this encounter Goals Goal [...] documented as of this encounter Care Teams Pumpman Relationship Specialty Start Date End Date Chelsi Kauffman MD 230 [place] [address] PCP - General Family Medicine 12/20/18 documented as of this encounter
--- OUTSIDE RECORDS SUMMARY | 2025-04-08 09:44 | XMS_ITS | Encounter Summary ---
Author Organization [employer] Address [address] [place] [address] 7 [place] [address] Care Team Providers Care Green Inspector Name Role Phone Chelsi Kauffman MD Primary Care Provide r Reason for Visit * Reason Comments Med Refill Encounter Details Date Type Department Care Team ([facility] st Contact Info) Description 04/07/2025 Refill [facility] MEDICINE 230 [place] [address] Chelsi Kauffman MD 230 [place] [address] Asthma in adult, moderate persistent, uncomplicated Social [...] 04/14/2025 3:15 PM EST Office Visit [facility] MEDICINE [address] [place] [address] Chelsi Kauffman MD [address] [place] [address] 05/16/2025 9:30 AM EST Office Visit [facility] ADULT DENTAL [address] [place] [address] Nicole Lay [address] [place] [address] 05/20/2025 9:45 AM EST Office Visit [facility] MEDICINE [address] [place] [address] documented as of this encounter Goals Goal [...] documented as of this encounter Care Teams Green Inspector Relationship Specialty Start Date End Date Chelsi Kauffman MD [address] [place] [address] PCP - General Family Medicine 12/20/18 documented as of this encounter
--- OUTSIDE RECORDS SUMMARY | 2025-04-08 09:44 | XMS_ITS | Encounter Summary ---
Author Organization [employer] Address 75 [facility] 7 [place] [address] Care Team Providers Care Cold Strip Feeder Name Role Phone Chelsi Kauffman MD Primary Care Provide r Encounter Details Date Type Department Care Team ([facility] st Contact Info) Description 03/25/2024 Telephone [facility] MEDICINE 230 [place] [address] Chelsi Kauffman MD 230 [place], [place] [phone] Social History Tobacco Use Types Packs/Day Years [...] Description 04/14/2025 3:15 PM EST Office Visit [facility] MEDICINE [address] [place] [address] Chelsi Kauffman MD [address] [place] [address] 05/16/2025 9:30 AM EST Office Visit [facility] ADULT DENTAL [address] [place] [address] Nicole Lay 230 [place] [address] 05/20/2025 9:45 AM EST Office Visit [facility] MEDICINE [address] [place] [address] documented as of this encounter Goals Goal [...] documented as of this encounter Care Teams Cold Strip Feeder Relationship Specialty Start Date End Date Chelsi Kauffman MD 230 [place] [address] PCP - General Family Medicine 12/20/18 documented as of this encounter
--- OUTSIDE RECORDS SUMMARY | 2025-04-08 09:44 | XMS_ITS | Encounter Summary ---
Author Organization [employer] Address [address] [place] [address] [facility] [place] [address] Care Team Providers Care Supervisor Liquid Yeast Name Role Phone Chelsi Kauffman MD Primary Care Provide r Reason for Referral * Consultation (Routine) - Closed Specialty Diagnoses / Procedures Referred By Contac t Referred To Contact Physical Therapy Diagnoses Benign paroxysmal vertigo, unspecified laterality Christine Laurent MD [address] [place] [address] Phone: tel: fax: [facility] Physical Therapy [address] [place] [address] Phone: tel: fax: Referral ID Status Reason Start Date Expiration Date V isits Requested Visits Authorized [id number] Closed Specialty Services Required 04/26/2024 04/26/2025 1 1 Encounter Details Date Type Department Care Team (Late st Contact Info) Description 04/26/2024 Orders Only [facility] MEDICINE [address] [place] [address] [phone] Christine aLurent MD 230 [place], [place] [phone] Benign paroxysmal vertigo, unspecified laterality (Primary Dx) [...] 04/14/2025 3:15 PM EST Office Visit [facility] MEDICINE 230 [place] [address] Chelsi Kauffman MD 230 [place] [address] 05/16/2025 9:30 AM EST Office Visit [facility] ADULT DENTAL 230 [place] [address] Nicole Lay 230 [place] [address] 05/20/2025 9:45 AM EST Office Visit [facility] MEDICINE 230 [place] [address] Scheduled Referrals Name Type Priority Associated Diagnoses [...] as of this encounter Care Teams Supervisor Liquid Yeast Relationship Specialty Start Date End Date Chelsi Kauffman MD 230 [place] [address] PCP - General Family Medicine 12/20/18 documented as of this encounter
--- OUTSIDE RECORDS SUMMARY | 2025-04-08 09:44 | XMS_ITS | Clinical Summary ---
Author Organization [employer] Address [address] [place] [address] 7 [place] [address] Care Team Providers Care Consulting Nurse Name Role Phone Chelsi Kauffman MD [...] daily. Active Blood Glucose Monitoring Suppl (FreeStyle Turin Lite) w/Device kitIndications:P rediabetes Use to test [...] episode of recurrent major depressive disorder (CMS/HCC) ([facility]) TAKE 1 TABLET BY MOUTH EVERY MORNING 30 tablet 3 025 Active DULoxetine (Cymbalta) [address] capsuleIndicatio ns:Moderate episode of recurrent major depressive disorder (CMS/HCC) ([facility]) TAKE 1 CAPSULE BY MOUTH EVERY MORNING [...] episode of recurrent major depressive disorder (CMS/HCC) ([facility]) TAKE 1 TABLET BY MOUTH EVERY MORNING 30 tablet 3 025 2024 Discontinued DULoxetine (Cymbalta) [address] capsuleIndicatio ns:Moderate episode of recurrent major depressive disorder (CMS/HCC) ([facility]) TAKE 1 CAPSULE BY MOUTH EVERY MORNING [...] lumbar anterolisthesis Rx: oxycodone 5mg BID Last ORDER ENTRY REPRESENTATIVE Agreement: 03/18/25 Tier: III (Q4-6 months), Dr. [...] if is persistently high to contact me parts back counter man pain 03/18/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 - Recommended watching [employer] videos fro stretching and exercises that can [...] Type Department Care Team Description 04/07/[address] [facility] MED[facility] [address] [place] [address] Chelsi Kauffman MD Asthma in adult, moderate persistent, uncomplicated 03/27/[address] [facility] MED[facility]INE [address] [place] [address] Chelsi Kauffman MD Pre-visit Planning (SDOH screening negative and tobacco screening negative) 03/27/2025 Refill [facility] [address] [place] [address] Chelsi Kauffman MD Chronic toe pain, left foot 03/24/[address] [facility] [address] [place] [address] Chelsi Kauffman MD Nurse Triage 03/20/[address] [facility] [address] [place] [address] Chelsi Kauffman MD Referral 03/18/2025 9:45 AM EST Office Visit [facility] [address] [place] [address] Mackenzie Whatley FNP Lumbar spondylosis (Primary Dx); Long-term current use of opiate analgesic 03/16/[address] [facility] [address] [place] [address] Chelsi Kauffman MD Moderate episode of recurrent major depressive disorder (CMS/HCC) ([facility]); Chronic toe pain, left foot 03/14/[address] [facility] [address] [place] [address] Cehlsi Kauffman MD 03/12/2025 Refill [facility] [address] [place] [address] Chelsi Kauffman MD Chronic midline low back pain with right-sided sciatica; Polyarthralgia 03/09/[address] [facility] [address] [place] [address] Chelsi Kauffman MD Polyarthralgia 02/26/[address] [facility] [address] [place] [address] Mackenzie Whatley FNP Long-term current use of opiate analgesic 02/20/[address] [facility] [address] [place] [address] [place] [address] Chelsi Kauffman MD Mild persistent asthma without complication 02/12/2025 10:[address] [facility] [address] [place] [address] Encounter for immunization 02/12/2025 Travel 02/12/[address] [facility] PEDS [address] [place] [address] Chelsi Kauffman MD Chronic midline low back pain with right-sided sciatica; Polyarthralgia; Mild intermittent asthma without complication 02/06/[address] [facility] [address] [place] [address] Chelsi Kauffman MD Vertigo 02/05/2025 11:00 AM EDT Office Visit [facility] ADULT DENTAL [address] [place] [address] Granados-Cowan, Aurora, DDS Ill-fitting dentures (Primary Dx) 02/05/[address] [facility] [address] [place] [address] Chelsi Kauffman MD Vitamin D deficiency, unspecified; Vertigo 02/03/[address] [facility] [address] [place] [address] Chelsi Kauffman MD Mild persistent asthma without complication 01/29/2025 11:30 AM EDT Office Visit [facility] OPTOMETRY [address] [place] [address] Rito, Kennedi, OD Presbyopia of both eyes (Primary Dx) 01/29/2025 Travel 01/21/2025 Orders Only GENERIC EXTERNAL DATA DEPARTMENT Provider, Generic External Data 01/18/[address] [facility] [address] [place] [address] Chelsi Kauffman MD Dry eye syndrome of bilateral lacrimal glands 01/16/[address] [facility] PEDS [address] [place] [address] Chelsi Kauffman MD Chronic midline low back pain with right-sided sciatica; Polyarthralgia 01/08/[address] [facility] MED[facility] [address] [place] [address] Chelsi Kauffman MD Chronic toe pain, left [...] 04/14/2025 3:15 PM EST Office Visit [facility] MEDICINE [address] [place] [address] Chelsi Kauffman MD [address] [place] [address] 05/16/2025 9:30 AM EST Office Visit [facility] ADULT DENTAL [address] [place] [address] Nicole Lay [address] [place] [address] 05/20/2025 9:45 AM EST Office [facility] [address] [facility] [place] [address] Health Maintenance Due Date Last Done Comments [...] - 03/18/2025 10:37 AM EST .UTOX cup Lot#[id number] Exp. 03/10/26 Internal Pass Control Mackenzie Whatley COMIC ARTIST POINT OF CARE TEST ENTER/EDIT ORDERABLES Final Result * BI Mammogram Screening Tomosynthesis Bilateral (03/14/2025 10:50 AM EST) Anatomical Region Laterality Modality Breast Bilateral Mammography 03/14/2025 10:5 0 AM EST Narrative 03/17/2025 12:43 PM EST [facility] [address] [place] [address] Mammography Report Signed Patient: Chelsi Connors MR#: [id number] : 1965 Acct:[id number] Age/Sex: 59 / F ADM Date: 03/14/25 Loc: [facility] Attending Dr: Chelsi Reece MD Ordering Physician: Chelsi Kauffman MD Results: 1Negative Date of Service: 03/14/25 Follow Up: 1 Year From Orig inal Mammogram Procedure(s): MM tomosynthesis screening BI Accession Number(s): [id number] cc: Chelsi Kauffman MD Reason For Exam: [...] DO 03/17/2025 12:40 PM [facility] Dictated By: Taty Mccartney DO Signed By: <Electronically signed by Taty Mccartney DO in OV> 03/17/25 1240 DD/ 1050 TD/TT: 03/14/25 1100 Website Programmer: Procedure Note Donotuseinterpreter, Image - 03/17/2025 [facility] [address] [place] [address] Mammography Report Signed Patient: Chelsi Connors DMR#: [id number] : 1965Acct:[id number] Age/Sex: 59 / FADM Date: 03/14/25 Loc: HO.MAMMO Attending Dr: Chelsi Reece MD Ordering Physician: Chelsi Kauffman MDResults: 1Negative Date of Service: 03/14/25Follow Up: 1 Year From Orig inal Mammogram Procedure(s): MM tomosynthesis screening BI Accession Number(s): [id number] cc: Chelsi Kauffman MD Reason For Exam: [...] 03/17/25 1240 DD/ 1050 TD/TT: 03/14/25 1100 Website Programmer: Chelsi Reece MD IMG BI PROCEDURES Fin al Result * Hematoxylin and Eosin Stain (01/21/2025 12:44 PM EDT) 01/21/2025 12:4 4 PM EDT 01/21/2025 1:40 PM EDT [facility] - 01/23/2025 10:49 AM EDT ----- ------- Name: Chelsi Connors Age/Sex: 59/F : 1965 Unit#: [id number] Attend Dr: Domi Miller MD Re01/21/25 Status: [facility] Location: HO.SSS Disch: ----- ------- SPEC : [id number] RECD: 01/21/25 STATUS: [place] NUM: [id number] HARVINDER: 01/21/[address] [facility] [address]: Domi Miller MD ENTERED: 01/21/25 [...] Chelsi Connors Age/Sex: 59/F : 1965 Unit#: [id number] Attend Dr: Domi Miller MD Re01/21/25 Status: [facility] Location: [facility] Disch: ----- ------- SPEC : [id number] RECD: 01/21/25 STATUS: [place] NUM: [id number] HARVINDER: 01/21/[address] [facility] [address]: Domi Miller MD ENTERED: 01/21/25 [...] microscopic examination, 1 piece in cassette G. ([facility]) Special studies ordered and performed: Immunostain for H. pylori on A and E; AB/PAS stains on A, B, C, D, E and F IHC S/NG Disclaimer NOTE: Unless otherwise stated, all tissue is formalin-fixed and paraffin-embedded. Some or all of the immunohistochemical tests reported herein may have been developed and their performance characteristics determined by [facility]. They have not been cleared or approved by the U.S. Food and Drug Administration (FDA). However, the FDA CONTINUED ON NEXT PAGE ----- ------- Name: Up VasiliyChelsi morales Age/Sex: 59/F : 1965 Unit#: [id number] Attend Dr: Domi Miller MD Re01/21/25 Status: [facility] Location: [place] Disch: ----- ------- SPEC : [id number] RECD: 01/21/25 STATUS: [place] NUM: [id number] HARVINDER: 01/21/[address] [facility] [address]: Domi Miller MD ENTERED: 01/21/25 [...] laboratory testing. Copies To: Chelsi Kauffman MD [address] [phone] Domi Miller MD [facility] [address] [place] [phone] [email or web address] ----- ------- Signed (signature on file) Dc Shaffer MD 01/23/25 1049 ----- ------- END OF REPORT Generic External Data Provider LAB BLOOD ORDERAB LES Final Result Performing Organization Address City/[facility]/ZIP Co de Phone Number [facility] [address] [place] [address] [phone] * Glucose, Whole Blood (01/21/2025 11:08 AM EDT) Glucose, Whole Blood 106 60 - 115 mg/dL [facility] Comment:METER #: [id number] 01/21/2025 11:0 8 AM EDT 01/21/2025 11:15 AM EDT Generic External Data Provider LAB BLOOD ORDERAB LES Final Result Performing Organization Address [facility] Co de Phone Number [facility] [address] [place] [address] [phone] * Hemoglobin A1c (07/10/2024 12:13 PM EDT) Hemoglobin A1c 5.7 <6.0 % [facility] Comment:Hemoglobin A1C Refer ence Range Adults: 4.8 - 6.0 % Non diabetic: < 6.0 % Goal: < 7.0 %Additional Action Suggested: > 8.0 %Note: Hemoglobin A1c results are invalid for patients with abnormal amounts of HbF. Blood transfusions may impact the HbA1c concentration in the patient sample. Estimated Average Glucose 117 mg/dL [facility] Comment:eAG = Estimated ave rage glucose which is %A1C expressed asaverage glucose, using the formula of the D0V-CwjavqeKkyuatj Glucose study (ADAG), Diabetes Care, Vol.31,#8,Nov. 2007 Blood Venous blood specimen / Unknown 07/10/2024 12:13 PM EDT 07/10/2024 12:13 PM EDT us Chelsi Reece MD LAB BLOOD ORDERABLES Final Result [facility] [address] [place] [address] [phone] * (ABNORMAL) Lipid Panel, Standard (07/10/2024 12:13 PM EDT) Triglycerides 167(H) <150 mg/dL [facility] Comment:Desirable Triglyceri de: less than 150 mg/dLBorderline High Triglyceride 150-199 mg/dLHigh Triglyceride: 200-499 mg/dLVery High Triglyceride: greater than or equal to 5OO mg/dL Cholesterol 163 <200 mg/dL [facility] Comment:Desirable Cholestero l: less than 200 mg/dLBorderline High Cholesterol: 200-239 mg/dLHigh Cholesterol: greater than 239 mg/dL LDL Cholesterol Calculated 90 <100 mg/dL [facility] Comment:Desirable LDL: less than 100 mg/dLNear Optimal/Above Optimal LDL: 110- 129 mg/dLBorderline High LDL: 130-159 mg/dLHigh LDL: 160-189 mg/dLVery High LDL: greater than or equal to 190 mg/dL HDL Cholesterol 40(L) >40 mg/dL [facility] Comment:Desirable HDL: great er than 40 mg/dL Note: This HDL assay may give artificially low results in patients with liver disease. Blood Venous blood specimen / Unknown 07/10/2024 12:13 PM EDT 07/10/2024 12:13 PM EDT us Chelsi Reece MD LAB BLOOD ORDERABLES Final Result [facility] [address] [place] [address] [phone] * Image-Guided Pap with Age-Based Screening??with CT/NG,??Trichomonas (07/04/2023 3:39 PM EDT) Trichomonas (NAAT) NOT DETECTED NOT DETECTED [facility] Comment:The analytical perfo rmance characteristics of thisassay have been determined by Where. Themodifications have not been cleared or approved bythe FDA. This assay has been validated pursuant to theIA regulations and is used for clinical purposes.For additional information, please refer tohttp://Arstasis.Zuse/faq/Trichomonastma(This link is being provided for information/educational purposes only.)THIS TEST WAS PERFORMED AT:[employer] [place] [phone] HANEY MD CTNG Ref Lab NOT DETECTED NOT DETECTED [facility] NG Ref Lab NOT DETECTED NOT DETECTED [facility] Pap Vial Vaginal structure / Unknown 07/04/2023 3:39 PM EDT 07/10/2023 8:55 AM EDT Narrative [facility] - 07/11/2023 8:28 PM EDT Collection Date: [id number]: Vagina Chelsi Reece MD LAB CYTOLOGY ORDERABL ES Final Result [facility] [address] [place] [address] [phone] * HPV mRNA E6/E7 w/Reflex to HPV Genotypes 16, 18/45 (07/04/2023 3:39 PM EDT) HPV nRNA E6/E7 Not Detected Not Detected [facility] Comment:Methodology: Transcr iption-Mediated AmplificationThis assay detects E6/E7 viral messenger RNA (mRNA) from 14high-risk HPV types (16,18,31,33,35,39,45,51,52,56,58,59,66,68).Cervical sources are required for HPV testing.If a vaginal source from a patient who has had atotal hysterectomy with removal of cervix wassubmitted, please contact the testing laboratoryfor alternative testing options.For additional information, please refer tohttp://education.Zuse/faq/ZUZ088a6(This link if provided for information/educational purposes only.)THIS TEST WAS PERFORMED AT:[facility] [place] [phone] HANEY MD HPV mRNA E6/E7 [facility] HPV 16 RNA [facility] HPV 18/45 RNA [facility] 07/04/2023 3:39 PM EDT 07/05/2023 2:00 PM EDT Chelsi Reece MD LAB CYTOLOGY ORDERABL ES Final Result Performing Organization Address [facility]/ZIP Co de Phone Number [facility] [address] [place] [phone] * (ABNORMAL) Hepatitis C Ab (12/21/2022 10:55 AM EDT) Pathologist [facility] Hepatitis C Antibody Reactive( A) Nonreactive [facility] Comment:Presumptive evidence of antibodies to HCV. 12/21/2022 10:5 5 AM EDT 12/21/2022 10:55 AM EDT [facility] External Provider LAB BLO OD ORDERABLES Final Result Performing Organization Address [facility] Co de Phone Number [facility] [address] [place] [address] [phone] * HIV Ab/Ag (ND RAFIQ) (12/21/2022 10:55 AM EDT) HIV AB/AG Nonreactive Nonreactive [facility] Comment:HIV-1 p24 Ag and/or HIV-1/HIV-2 Ab not detected.A test result that is nonreactive does not exclude thepossibility of exposure to or infection with HIV-1 and/orHIV-2. Nonreactive results in this assay for individualswith prior exposure to HIV-1 and/or HIV-2 may be due toantigen and antibody levels that are below the limit ofdetection of this assay.The [employer] HIV Ag/Ab Combo assay result andsupplemental assay results should be interpreted inconjunction with the patient's clinical presentation,history and other laboratory results. If the results areinconsistent with clinical evidence, additional testing issuggested to confirm the result. 12/21/2022 10:5 5 AM EDT 12/21/2022 10:55 AM EDT us Generic External Data Provider LAB BLOOD ORDERAB LES Final Result [facility] [address] [place] [address] [phone] * Colonoscopy (08/25/2022) Colonoscopy Normal Normal Narrative Griselda Segal - 08/25/2022 Recommended 1 year follow up due to poor prep us Historical Provider HEALTH MAINTENANCE Final Result from Last 3 Months or Most Recently Relevant to Health Maintenance Insurance [facility] < 65 [place] [id number] [facility] Care Teams Consulting Nurse Relationship Specialty Start Date End Date Chelsi Kauffman MD [address] [place] [phone] PCP - General Family Medicine 12/20/18
--- OUTSIDE RECORDS SUMMARY | 2025-04-08 09:44 | XMS_ITS | Encounter Summary ---
Author Organization [employer] Address [address] [place] [address] [facility] [place] [address] Care Team Providers Care Hobbies And Crafts Sales Representative Name Role Phone Chelsi Kauffman MD Primary Care Provide r Reason for Visit * Reason Comments Med Refill Encounter Details Date Type Department Care Team ([facility] st Contact Info) Description 03/08/2023 Refill [facility] MEDICINE [address] [place] [address] Chelsi Kauffman MD [address] [place] [address] Migraine without aura, not refractory Social History [...] Description 04/14/2025 3:15 PM EST Office Visit [facility] MEDICINE [address] [place] [address] Chelsi Kauffman MD [address] [place] [address] 05/16/2025 9:30 AM EST Office Visit [facility] ADULT DENTAL [address] [place] [address] Alireza, Nicole [address] [place] [address] 05/20/2025 9:45 AM EST Office Visit [facility] MEDICINE [address] [place] [phone] documented as of this encounter Visit Diagnoses Diagnosis Migraine without aura, not refractory documented in this encounter Additional Health Concerns Assessment Noted Time PHQ-9 Depression Total Score: 24 023 2:25 PM EDT documented as of this encounter Care Teams Hobbies And Crafts Sales Representative Relationship Specialty Start Date End Date Chelsi Kauffman MD [address] [place] [phone] PCP - General Family Medicine 12/20/18 documented as of this encounter
--- OUTSIDE RECORDS SUMMARY | 2025-04-08 09:44 | XMS_ITS | Encounter Summary ---
Author Organization [employer] Address [address] [place] [address] 7 [place] [address] Care Team Providers Care Laboratory Chief Name Role Phone Chelsi Kauffman MD Primary Care Provide r Reason for Visit * Reason Comments Med Refill Encounter Details Date Type Department Care Team ([facility] st Contact Info) Description 05/06/2024 Refill [facility] MEDICINE [address] [place] [address] Chelsi Kauffman MD [address] [place] [address] Mild intermittent asthma without complication; Asthma in [...] the past 12 months, has t he [employer], gas, oil or water [employer] threatened to shut off services in your [...] 3:15 PM EST Office Visit [facility] MEDICINE [address] [place] [address] Chelsi Kauffman MD [address] [place] [phone] 05/16/2025 9:30 AM EST Office Visit [facility] ADULT DENTAL [address] [place] [phone] Nicole Lay [address] [place] [address] 05/20/2025 9:45 AM EST Office Visit [facility] MEDICINE [address] [place] [phone] documented as of this encounter Goals Goal [...] as of this encounter Care Teams Laboratory Chief Relationship Specialty Start Date End Date Chelsi Kauffman MD [address] [place] [phone] PCP - General Family Medicine 12/20/18 documented as of this encounter
--- OUTSIDE RECORDS SUMMARY | 2025-04-08 09:44 | XMS_ITS | Encounter Summary ---
Author Organization [employer] Address [address] [place] [address] [facility] [place] [address] Care Team Providers Care Behavioral Sciences Department Chair Name Role Phone Chelsi Kauffman MD Primary Care Provide r Reason for Visit * Reason Comments Med Refill Encounter Details Date Type Department Care Team ([facility] st Contact Info) Description 12/16/2024 Refill [facility] MEDICINE [address] [place] [address] Chelsi Kauffman MD [address] [place] [address] Preventative health care; Hypertension, unspecified type Social [...] 04/14/2025 3:15 PM EST Office Visit [facility] MEDICINE [address] [place] [phone] Chelsi Kauffman MD [address] [place] [address] 05/16/2025 9:30 AM EST Office Visit [facility] ADULT DENTAL [address] [place] [phone] Nicole Lay [address] [place] [phone] 05/20/2025 9:45 AM EST Office Visit [facility] MEDICINE [address] [place] [phone] documented as of this encounter Goals Goal [...] documented as of this encounter Care Teams Behavioral Sciences Department Chair Relationship Specialty Start Date End Date Chelsi Kauffman MD [address] [place] [phone] PCP - General Family Medicine 12/20/18 documented as of this encounter
--- OUTSIDE RECORDS SUMMARY | 2025-04-08 09:44 | XMS_ITS | Encounter Summary ---
Author Organization [employer] Address [address] [place] [address] Care Team Providers Care Link Trainer Maintenance Worker Name Role Phone Chelsi Kauffman MD Primary Care Provide r Encounter Details Date Type Department Care Team (Latest Contact Info) Description 09/04/2020 Abstract [facility] CONVERSIONS Dental, Provider, DDS Social History [...] 3:15 PM EST Office Visit [facility] MEDICINE [address] [place] [address] Chelsi Kauffman MD [address] [place] [address] 05/16/2025 9:30 AM EST Office Visit [facility] ADULT DENTAL [address] [place] [address] Nicole Lay [address] [place] [address] 05/20/2025 9:45 AM EST Office Visit [facility] MEDICINE [address] [place] [phone] documented as of this encounter Visit Diagnoses Not on filedocumented in this encounter Care Teams Link Trainer Maintenance Worker Relationship Specialty Start Date End Date Chelsi Kauffman MD [address] [place] [address] PCP - General Family Medicine 12/20/18 documented as of this encounter
--- OUTSIDE RECORDS SUMMARY | 2025-04-08 09:44 | XMS_ITS | Encounter Summary ---
Author Organization [employer] Address [address] [place] [address] 7 [place] [address] Care Team Providers Care Freight Tallier Name Role Phone Chelsi Kauffman MD Primary Care Provide r Reason for Visit * Reason Comments Med Refill Encounter Details Date Type Department Care Team ([facility] st Contact Info) Description 05/09/2023 Refill [facility] MED[facility] [address] [place] [address] Chelsi Kauffman MD [address] [place] [address] Migraine without aura, not refractory Social History [...] 04/14/2025 3:15 PM EST Office Visit [facility] MEDICINE [address] [place] [address] Chelsi Kauffman MD [address] [place] [phone] 05/16/2025 9:30 AM EST Office Visit [facility] ADULT DENTAL [address] [place] [address] Derick Layaris [address] [place] [address] 05/20/2025 9:45 AM EST Office Visit [facility] MEDICINE [address] [place] [phone] documented as of this encounter Visit Diagnoses Diagnosis Migraine without aura, not refractory documented in this encounter Additional Health Concerns Assessment Noted Time PHQ-9 Depression Total Score: 0 04/25/19 24 9:30 AM EST documented as of this encounter Care Teams Freight Tallier Relationship Specialty Start Date End Date Chelsi Kauffman MD [address] [place] [phone] PCP - General Family Medicine 12/20/18 documented as of this encounter
--- OUTSIDE RECORDS SUMMARY | 2025-04-08 09:44 | XMS_ITS | Encounter Summary ---
Author Organization [employer] Address [address] [facility] 7 [place] [address] Care Team Providers Care Sales And Marketing Professional Name Role Phone Chelsi Kauffman MD Primary Care Provide r Reason for Visit * Reason Comments Med Refill Encounter Details Date Type Department Care Team ([facility] st Contact Info) Description 09/14/2023 Refill [facility] MED[facility]INE [address] [place] [address] Chelsi Kauffman MD [address] [place] [address] Polyarthralgia Social History Tobacco Use Types Packs/Day [...] 04/14/2025 3:15 PM EST Office Visit [facility] MED[facility]INE [address] [place] [address] Chelsi Kauffman MD [address] [place] [address] 05/16/2025 9:30 AM EST Office Visit [facility] ADULT DENTAL [address] [place] [phone] Nicole Lay [address] [place] [address] 05/20/2025 9:45 AM EST Office Visit [address] [address] documented as of this encounter Goals Goal [...] as of this encounter Care Teams Sales And Marketing Professional Relationship Specialty Start Date End Date Chelsi Kauffmna MD [address] [place] [address] PCP - General Family Medicine 12/20/18 documented as of this encounter
--- OUTSIDE RECORDS SUMMARY | 2025-04-08 09:44 | XMS_ITS | Encounter Summary ---
Author Organization [employer] Address [address] [place] [address] [place] [address] Care Team Providers Care Telecom Analyst Name Role Phone Chelsi Kauffman MD Primary Care Provide r Reason for Visit * Reason Onset Date Comments Med Refill 05/30/2024 Encounter Details Date Type Department Care Team (Late st Contact Info) Description 05/30/2024 Refill [facility] MEDICINE [address] [place] [address] Chelsi Kauffman MD [address] [place] [address] Social History Tobacco Use Types Packs/Day Years [...] MG/0.5ML solution auto-injector To be sent to: [facility] - [place], [place] - [address] [place] [address] documented in this encounter Plan of Treatment Upcoming Encounters Date Type Department Care Team ([facility] st Contact Info) Description 04/14/2025 3:15 PM EST Office Visit [facility] MEDICINE [address] [place] [address] Chelsi Kauffman MD [address] [place] [address] 05/16/2025 9:30 AM EST Office Visit [facility] ADULT DENTAL [address] [place] [address] [place] [address] Nicole Lay [address] [place] [address] 05/20/2025 9:45 AM EST Office Visit [facility] MED[facility]INE [address] [place] [address] documented as of this encounter Goals Goal [...] documented as of this encounter Care Teams Telecom Analyst Relationship Specialty Start Date End Date Chelsi Kauffman MD [address] [place] [address] PCP - General Family Medicine 12/20/18 documented as of this encounter
--- OUTSIDE RECORDS SUMMARY | 2025-04-08 09:44 | XMS_ITS | Encounter Summary ---
Author Organization [employer] Address [address] [place] [address] Care Team Providers Care Collection Technician Name Role Phone Chelsi Kauffman MD Primary Care Provide r Encounter Details Date Type Department Care Team (Latest Contact Info) Description 11/23/[address] [facility] CONVERSIONS Dental, Provider, DDS Social History [...] Visit [facility] MEDICINE [address] [place] [address] Chelsi Kauffman MD [address] [place] [address] 05/16/2025 9:30 AM EST Office Visit [facility] ADULT DENTAL [address] [place] [address] Nicole Lay [address] [place] [address] 05/20/2025 9:45 AM EST Office Visit [facility] MED[facility] [address] [place] [address] documented as of this encounter Visit Diagnoses Not on filedocumented in this encounter Care Teams Collection Technician Relationship Specialty Start Date End Date Chelsi Kauffman MD [address] [place] [address] PCP - General Family Medicine 12/20/18 documented as of this encounter
--- OUTSIDE RECORDS SUMMARY | 2025-04-08 09:44 | XMS_ITS | Encounter Summary ---
Author Organization [employer] Address [address] [facility] 7t [place] [address] Care Team Providers Care Coloring Checker Name Role Phone Chelsi Kauffman MD Primary Care Provide r Encounter Details Date Type Department Care Team (Late st Contact Info) Description 01/17/2023 Abstract [facility] MEDICINE [address] [place] [address] Griselda Segal Social History Tobacco Use Types [...] Description 04/14/2025 3:15 PM EST Office Visit [facility] MEDICINE [address] [place] [address] Chelsi Kauffman MD 230 [place], [place] [phone] 05/16/2025 9:30 AM EST Office Visit [facility] ADULT DENTAL [address] [place], [place] [phone] Alireza, Nicole [address] [place] [address] 05/20/2025 9:45 AM EST Office Visit [facility] MEDICINE [address] [place] [address] documented as of this encounter Procedures Procedure [...] documented as of this encounter Care Teams Coloring Checker Relationship Specialty Start Date End Date Chelsi Kauffman MD [address] [place] [phone] PCP - General Family Medicine 12/20/18 documented as of this encounter
--- OUTSIDE RECORDS SUMMARY | 2025-04-08 09:44 | XMS_ITS | Encounter Summary ---
Author Organization [employer] Address [address] [place] [address] [place] [address] Care Team Providers Care Stacker Operator Name Role Phone Chelsi Kauffman MD Primary Care Provide r Reason for Visit * Reason Onset Date Comments Referral 08/12/2024 Encounter Details Date Type Department Care Team ([facility] st Contact Info) Description 08/12/2024 Telephone [facility] MEDICINE [address] [place] [address] Chelsi Kauffman MD [address] [place] [address] Referral Social History Tobacco Use Types Packs/Day [...] referral : DATE: 08/12/2024 TIME: 10:00am Address: [address] [place] [address] Visits: 1 Facility Name: [facility] Type of Specialist: physical therapy DX:[id number] Provider : not provided Provider NPI : Facility NPI: [id number] Phone # : [phone] Fax #: [phone] documented in this encounter Plan of Treatment Upcoming Encounters Date Type Department Care Team ([facility] Contact Info) Description 04/14/2025 3:15 PM EST Office Visit [facility] MEDICINE [address] [place] [address] Chelsi Kauffman MD [address] [place] [address] 05/16/2025 9:30 AM EST Office Visit [facility] ADULT DENTAL [address] [place] [address] Nicole Lay [address] [place] [address] 05/20/2025 9:45 AM EST Office Visit [facility] MEDICINE [address] [place] [address] documented as of this encounter Goals Goal [...] documented as of this encounter Care Teams Stacker Operator Relationship Specialty Start Date End Date Chelsi Kauffman MD [address] [place] [address] PCP - General Family Medicine 12/20/18 documented as of this encounter
--- OUTSIDE RECORDS SUMMARY | 2025-04-08 09:44 | XMS_ITS | Encounter Summary ---
Author Organization [employer] Address [address] [place] [address] [address] [place] [address] Care Team Providers Care Gold Burnisher Name Role Phone Chelsi Kauffman MD Primary Care Provide r Reason for Visit * Reason Comments Med Refill Encounter Details Date Type Department Care Team ([facility] st Contact Info) Description 03/16/2023 Refill [facility] MEDICINE [address] [place] [address] Chelsi Kauffman MD [address] [place] [address] Dry eyes Social History Tobacco Use Types [...] 04/14/2025 3:15 PM EST Office Visit [facility] MEDICINE [address] [place] [address] Chelsi Kauffman MD [address] [place] [address] 05/16/2025 9:30 AM EST Office Visit [facility] ADULT DENTAL [address] [place] [address] Alireza, Nicole [address] [place] [address] 05/20/2025 9:45 AM EST Office Visit [facility] MEDICINE [address] [place] [address] documented as of this encounter Visit Diagnoses Diagnosis Dry eyes Unspecified tear film insufficiency documented in this encounter Additional Health Concerns Assessment Noted Time PHQ-9 Depression Total Score: 24 023 2:25 PM EDT documented as of this encounter Care Teams Gold Burnisher Relationship Specialty Start Date End Date Chelsi Kauffman MD [address] [place] [phone] PCP - General Family Medicine 12/20/18 documented as of this encounter
--- OUTSIDE RECORDS SUMMARY | 2025-04-08 09:44 | XMS_ITS | Encounter Summary ---
Author Organization [employer] Address [address] [facility] 7 [place] [address] Care Team Providers Care Coin Purse Framer Name Role Phone Chelsi Kauffman MD Primary Care Provide r Reason for Visit * Reason Comments Med Refill Encounter Details Date Type Department Care Team ([facility] st Contact Info) Description 03/31/2023 Refill [facility] [address] [place] [address] Kiana Satnos, DO [address] [place] [address] Vitamin D deficiency, unspecified Social History Tobacco [...] Office Visit [facility] MEDICINE [address] [place] [address] Chelsi Kauffman MD [address] [place] [address] 05/16/2025 9:30 AM EST Office Visit [facility] ADULT DENTAL [address] [place] [address] Alireza, Nicole [address] [place] [address] 05/20/2025 9:45 AM EST Office Visit [facility] MEDICINE [address] [place] [address] documented as of this encounter Visit Diagnoses Diagnosis Vitamin D deficiency, unspecified documented in this encounter Additional Health Concerns Assessment Noted Time PHQ-9 Depression Total Score: 24 023 2:25 PM EDT documented as of this encounter Care Teams Coin Purse Framer Relationship Specialty Start Date End Date Chelsi Kauffman MD [address] [place] [address] PCP - General Family Medicine 12/20/18 documented as of this encounter
== END 2025-04-07 08:13 | disposition home or self-care (01) ==
LOC: HO.HOSX 08:12
PROVIDERS: Visit Provider Physician Assistant
DX: M19.011 Primary osteoarthritis, right shoulder (principal); M19.012 Primary osteoarthritis, left shoulder; M75.42 Impingement syndrome of left shoulder; M75.41 Impingement syndrome of right shoulder
CPT/HCPCS: 20610; 73030; 99212; J0665; J1100; J2003

== ENCOUNTER 2025-04-07 08:58 | Outpatient (AMB) | payer OTHER, SELFPAY ==
[2025-04-07 09:07] VITALS: BMI 40.2
--- NOTE | 2025-04-07 09:07 | A.OFFVIS_ITS ---
Vital Signs 04/07/25 09:07 Height 5 ft 6 in Weight 249 lb BMI 40.2 Intake Visit Reasons: Inj-B/L shoulder injections. Last inj. -07/10/24 Intake Note: Chelsi is a 58 year old female who presents today for bilateral shoulder injections. Last injections 07/10/24. Patient reports injections helped, states that she recently fell down the stairs and injured herself. She was seen by her PCP and has a scheduled follow up. Patient would like to discuss shoulder surgery as her pain is becoming worse with her pain being equal in both shoulders. Complaints of no strength and cramps in her arm with raising her arms. She would like to repeat injection today. Toolroom Checker Name: Donna ID#[id number] Allergies No Known Allergies (No Known Allergies*) Allergy (Verified 04/07/25 09:14) Medication List - Last Reconciled 04/07/25 by Jennifer Starks PA-C albuterol sulfate 90 mcg/actuation (Ventolin HFA) 0 mcg inhalation amitriptyline 50 mg PO BEDTIME amlodipine (Norvasc) 10 mg PO DAILY aspirin (Adult Low Dose Aspirin) 81 mg PO DAILY blood-glucose meter (FreeStyle [place] Lite kit) As directed calcium carbonate-vitamin D3 500 mg-5 mcg (200 unit) (Oyster Shell Calcium- Vitamin D3) tabs PO DAILY carvedilol 6.25 mg PO BID cholecalciferol (vitamin D3) (Vitamin D3) 50 mcg PO DAILY citalopram (Celexa) 20 mg PO DAILY clonazepam (Klonopin) 0.5 mg PO BEDTIME diclofenac potassium 50 mg PO BID PRN dicyclomine 20 mg PO TID duloxetine (Cymbalta) 60 mg PO DAILY esomeprazole magnesium 40 mg PO BEDTIME famotidine 40 mg PO BEDTIME fexofenadine (Allergy Relief (fexofenadine)) 180 mg PO DAILY PRN fluticasone propion-salmeterol 500-50 mcg/dose 1 ea inhalation BID furosemide (Lasix) 20 mg PO DAILY gabapentin (Neurontin) 600 mg PO BID hydralazine 25 mg PO BID incontinence pad, liner, disp As directed, change every 2-3 hours ipratropium bromide 2 sprays intranasal TID-QID PRN 30 days lancets (TRUEplus Lancets) As directed losartan (Cozaar) 100 mg PO DAILY meclizine (Dramamine (meclizine)) 25 mg PO TID PRN melatonin 3 - 6 mg PO BEDTIME PRN metformin 500 mg PO BID mirabegron ER (Myrbetriq) 50 mg PO QAM oregano oil mg PO oxybutynin chloride ER 5 mg PO DAILY oxycodone 5 mg PO BID PRN simethicone (Gas Relief (simethicone)) 180 mg PO QID tirzepatide (weight loss) (Zepbound) 15 mg subcut QWEEK ubrogepant (Ubrelvy) 50 - 100 mg (0.5 - 1 x 100 mg) PO ONCE PRN 30 days vitamin B complex 1 cap PO DAILY HPI Comments Details: History of Present Illness The patient is a 59 year old female presenting for follow-up of bilateral shoulder pain. She was last seen in July for her shoulders and reports a fall on the stairs two months ago, which exacerbated her shoulder pain and also caused injury to her knees. Following the fall, she notes that her arm muscles hurt and cramp, and she is unable to grab objects effectively. The patient denies a history of diabetes. She has not previously undergone physical therapy for her shoulders. Social History - Functional Status: The patient reports she cannot grab objects due to arm muscle pain and cramps. 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 Trichomonal infection Screen for STD (sexually transmitted disease) Well woman exam Post covid-19 condition, unspecified TOUSSAINT (dyspnea on exertion) Urge incontinence Overactive bladder Stress incontinence Distal radius fracture, left Fracture of left distal radius Colon cancer screening Abdominal cramping Well woman exam with routine gynecological exam Subcutaneous abscess Cellulitis Urgency incontinence Microscopic hematuria Hx of fracture of wrist Hx of sleep apnea Hx of vertigo COVID GERD (gastroesophageal reflux disease) Pre-diabetes Epigastric pain Abdominal cramping Primary osteoarthritis of knees, bilateral Morbid obesity Osteoarthritis Fibromyalgia Arthritis Hypertension Surgical History History of open reduction and internal fixation (ORIF) procedure Hx of tubal ligation Hx of colonoscopy History of cholecystectomy (~2018) Family History Father Stomach cancer Brother Stomach problems Mother Diabetes Social History Household Members: Family Housing: Apartment Do you presently have visiting nurse or other home services: No Alcohol intake: current Alcohol intake frequency: does not drink Patient Tobacco Use Status: Former Tobacco user Tobacco use type: Cigarette Second Hand Smoke Exposure: No Advance Directives Date on File: 01/28/20 service: No Current occupational status: unemployed Sexual orientation: Straight/Heterosexual Gender identity: Female Review of Systems Narrative Review of Systems - Musculoskeletal: Reports bilateral shoulder and knee pain, which worsened after a fall two months ago. - She also reports arm muscle pain, cramping, and an inability to grab things. - She reports concern for a possible wrist fracture. Physical Exam Exam Exam: Physical Exam - Musculoskeletal: On examination of the shoulders, the patient is able to bring each hand to the top of her head, reach back, and externally rotate her arms. - Range of motion is noted to be at the maximum expected level for any type of surgical intervention. Vital Signs: BMI result Body Mass Index 40.2 Office Procedures AMB Joint Injection/Aspiration Joint Injection/Aspiration Primary Site: Right Shoulder Secondary Site: Left Shoulder Prep: site was prepped using aseptic technique, ethochloride spray was applied and injection warnings given Injected: 40 mg of, Decadron, with 3 mL of, 1% plain Lidocaine, 0.25% Bupivacaine and in the subcromial space Approach Used: posterolateral Procedure: The patient tolerated the procedure well and there was some relief with the local anesthesia Coding 83937 - Glenohumeral/Tronchanteric Bursa/Intraarticular Procedure code (CPT) selection complete Results Reviewed Results Reviewed: Xrays were obtained in the office today and personally reviewed by me show ghj oa with ac joint oa Assessment & Plan Assessment & Plan (1) Rotator cuff impingement syndrome of left shoulder: Code(s): M75.42 - Impingement syndrome of left shoulder Category: Medical (2) Rotator cuff impingement syndrome of right shoulder: Code(s): M75.41 - Impingement syndrome of right shoulder Category: Medical (3) Osteoarthritis of right shoulder: Code(s): M19.011 - Primary osteoarthritis, right shoulder Category: Medical (4) Osteoarthritis of left shoulder: Code(s): M19.012 - Primary osteoarthritis, left shoulder Category: Medical Plan Plan X-rays of the shoulders performed today confirmed arthritis, which is more severe in the left shoulder compared to the right. Based on her current range of motion, surgical intervention is not indicated as it would not provide additional benefit. The plan is to proceed with bilateral shoulder injections today for pain management. A referral will be made for physical therapy to help improve motion, strength, and overall function. The patient was given contact information to schedule an appointment with the physical therapy office at the hospital. Consent The patient expressed her desire for shoulder injections. After discussing the plan, she agreed to proceed with injections for both shoulders during today's visit. Patient was informed and verbally consented to the use of an ambient scribe for clinic note documentation during this visit. Orders: Orders XR Shoulder Jona min 2V Today M25.519 - Pain in unspecified shoulder PT Evaluation and Treatment Today M19.011 - Primary osteoarthritis, right shoulder, M19.012 - Primary osteoarthritis, left shoulder, M75.41 - Impingement syndrome of right shoulder, M75.42 - Impingement syndrome of left shoulder Coding Level of Care Code Est Pt Level 3 (33380) Add On Problem Visit Only Diagnoses Rotator cuff impingement syndrome of left shoulder M75.42 Rotator cuff impingement syndrome of right shoulder M75.41 Osteoarthritis of right shoulder M19.011 Osteoarthritis of left shoulder M19.012 CPT Codes Coding - Joint 7: 07887 - Glenohumeral/Tronchanteric Bursa/Intraarticular ([id number])
--- OUTSIDE RECORDS SUMMARY | 2025-04-07 09:12 | XMS_ITS | Encounter Summary ---
Author Organization [employer] Address [address] [place] [address] [place] [address] Care Team Providers Care Professional Poker Player Name Role Phone Chelsi Kauffman MD Primary Care Provide r Reason for Visit * Reason Onset Date Comments triage 06/09/2022 Encounter Details Date Type Department Care Team ([facility] st Contact Info) Description 06/09/2022 Telephone [facility] 230 [place] [address] Chelsi Kauffman MD 230 [place] [address] triage Social History Tobacco Use Types Packs/Day [...] 06/09/2022 12:16 PM EST Triage call with [employer] Raspberry Checker ID [id number] Pt reports third time with Covid. Covid [...] accepted this outcome Please contact pt at [phone] Citizen Of [place] Speaker documented in this encounter Plan of Treatment Upcoming Encounters Date Type Department Care Team (Late st Contact Info) Description 04/14/2025 3:15 PM EST Office Visit [facility] [address] [place] [address] Chelsi Kauffman MD 230 [place] [address] 05/16/2025 9:30 AM EST Office Visit [facility] ADULT DENTAL [address] [place] [address] Derick Layaris [address] [place] [address] 05/20/2025 9:45 AM EST Office Visit [facility] [address] [place] [address] documented as of this encounter Visit Diagnoses Not on filedocumented in this encounter Care Teams Professional Poker Player Relationship Specialty Start Date End Date Chelsi Kauffman MD [address] [place] [address] PCP - General Family Medicine 12/20/18 documented as of this encounter
--- OUTSIDE RECORDS SUMMARY | 2025-04-07 09:12 | XMS_ITS | Encounter Summary ---
Author Organization [employer] Address [address] [place] [address] Care Team Providers Care Punch Machine Operator Name Role Phone Chelsi Kauffman MD Primary Care Provide r Reason for Visit * Reason Comments Med Refill Encounter Details Date Type Department Care Team (Late Contact Info) Description 08/29/2022 Refill [facility] [address] [place] [address] Chelsi Kauffman MD 230 [place] [address] Mild intermittent asthma without complication Social History [...] Upcoming Encounters Date Type Department Care Team ([facility] Contact Info) Description 04/14/2025 3:15 PM EST Office Visit [facility] [address] [place] [address] Chelsi Kauffman MD 230 [place] [address] 05/16/2025 9:30 AM EST Office Visit [facility] ADULT DENTAL [address] [place] [address] Derick Layaris [address] [place] [address] 05/20/2025 9:45 AM EST Office Visit [facility] [address] [place] [address] documented as of this encounter Visit Diagnoses Diagnosis Mild intermittent asthma without complication documented in this encounter Additional Health Concerns Assessment Noted Time PHQ-9 Depression Total Score: 24 023 2:25 PM EDT documented as of this encounter Care Teams Punch Machine Operator Relationship Specialty Start Date End Date Chelsi Kauffman MD [address] [place] [address] PCP - General Family Medicine 12/20/18 documented as of this encounter
--- OUTSIDE RECORDS SUMMARY | 2025-04-07 09:12 | XMS_ITS | Clinical Summary ---
Author Organization [facility] Address [address] [place] [address] Phone Care Team Providers Care Vault Installer Name Role Phone Jesse Kauffman MD Primary [...] AM EST Office Visit [facility] [place] [address] [place] [phone] Harjit Zabala, DPM Posterior tibial tendinitis [...] AM EDT Office Visit [facility] [place] 250 175 [facility] 250 [place] [address] Harjit Zabala, DPM [address] [address] Health Maintenance Due Date Last [...] ID:[id number] Group ID:[id number] Type:Not on file Address: [place] [address] [place] [phone] MEDICAID [place] Care Teams Vault Installer Relationship Specialty Start Date End Date Jesse Kauffman MD [address] [phone] PCP - General Internal Medicine 02/26/21
--- OUTSIDE RECORDS SUMMARY | 2025-04-07 09:12 | XMS_ITS | Encounter Summary ---
Author Organization [employer] Address [address] [place] [address] Care Team Providers Care Automatic Door Mechanic Name Role Phone Chelsi Kauffman MD Primary Care Provide r Reason for Visit * Reason Onset Date Comments Durable Medical Equipment 07/28/2022 Encounter Details Date Type Department Care Team ([facility] st Contact Info) Description 07/28/2022 Telephone [facility] MEDICINE [address] [place] [address] Chelsi Kauffman MD 230 [place] [address] Durable Medical Equipment Social History Tobacco Use [...] Description 04/14/2025 3:15 PM EST Office Visit [facility] MEDICINE [address] [place] [address] Chelsi Kauffman MD [address] [place] [address] 05/16/2025 9:30 AM EST Office Visit [facility] ADULT DENTAL [address] [place] [address] Alireza, Nicole [address] [place] [address] 05/20/2025 9:45 AM EST Office Visit [facility] MEDICINE [address] [place] [address] documented as of this encounter Visit Diagnoses Not on filedocumented in this encounter Additional Health Concerns Assessment Noted Time PHQ-9 Depression Total Score: 24 07/26/ 023 2:25 PM EDT documented as of this encounter Care Teams Automatic Door Mechanic Relationship Specialty Start Date End Date Chelsi Kauffman MD 230 [place] [address] PCP - General Family Medicine 12/20/18 documented as of this encounter
--- OUTSIDE RECORDS SUMMARY | 2025-04-07 09:12 | XMS_ITS | Encounter Summary ---
Author Organization [employer] Address [address] [place] [address] [place] [address] Care Team Providers Care Commercial Sales Representative Name Role Phone Chelsi Kauffman MD Primary Care Provide r Reason for Visit * Reason Comments Med Refill Encounter Details Date Type Department Care Team (Late st Contact Info) Description 08/24/2022 Refill [facility] [address] [place] [address] Mariana Meyer MD 230 [place] [address] Social History Tobacco Use Types Packs/Day Years [...] Upcoming Encounters Date Type Department Care Team ([facility] Contact Info) Description 04/14/2025 3:15 PM EST Office Visit [facility] 230 [place] [address] Chelsi Kauffman MD 230 [place] [address] 05/16/2025 9:30 AM EST Office Visit [facility] ADULT DENTAL 230 [place], [place] [phone] AlirezaDerickNicole 230 [place] [address] 05/20/2025 9:45 AM EST Office Visit [facility] MEDICINE [address] [place] [address] documented as of this encounter Visit Diagnoses Not on filedocumented in this encounter Additional Health Concerns Assessment Noted Time PHQ-9 Depression Total Score: 24 023 2:25 PM EDT documented as of this encounter Care Teams Commercial Sales Representative Relationship Specialty Start Date End Date Chelsi Kauffman MD [address] [place] [address] PCP - General Family Medicine 12/20/18 documented as of this encounter
--- OUTSIDE RECORDS SUMMARY | 2025-04-07 09:12 | XMS_ITS | Encounter Summary ---
Author Organization [employer] Address [address] [place] [address] Care Team Providers Care Lathe Operator Name Role Phone Chelsi Kauffman MD Primary Care Provide r Reason for Visit * Reason Comments Med Refill Encounter Details Date Type Department Care Team (Late st Contact Info) Description 09/18/2022 Refill [facility] MED[facility] [address] [place] [address] [phone] Chelsi Kauffman MD 230 [place], [place] [phone] Asthma in adult, moderate persistent, uncomplicated Social [...] Description 04/14/2025 3:15 PM EST Office Visit [facility] MED[facility]INE [address] [place] [address] [phone] Chelsi Kauffman MD 230 [place] [address] 05/16/2025 9:30 AM EST Office Visit [facility] ADULT DENTAL 230 [place] [address] Derick Layaris [address] [place] [address] 05/20/2025 9:45 AM EST Office Visit [facility] MEDICINE [address] [place] [address] documented as of this encounter Visit Diagnoses Diagnosis Asthma in adult, moderate persistent, uncomplicated documented in this encounter Additional Health Concerns Assessment Noted Time PHQ-9 Depression Total Score: 24 023 2:25 PM EDT documented as of this encounter Care Teams Lathe Operator Relationship Specialty Start Date End Date Chelsi Kauffman MD 230 [place] [address] PCP - General Family Medicine 12/20/18 documented as of this encounter
--- OUTSIDE RECORDS SUMMARY | 2025-04-07 09:13 | XMS_ITS | Clinical Summary ---
Author Organization [employer] Address [address] [place] [address] 7 [place] [address] Care Team Providers Care Senior Ui Designer Name Role Phone Chelsi Kauffman MD [...] daily. Active Blood Glucose Monitoring Suppl (FreeStyle Yale Lite) w/Device kitIndications:P rediabetes Use to test [...] BREAKFAST AND EVENING MEAL 60 tablet 11 04/01/20 25 1:20 PM EST 025 Active Zepbound 12.5 MG/0.5ML [...] BY MOUTH EVERY MORNING 90 tablet 1 04/01/20 25 1:20 PM EST 025 Active oxyCODONE (Roxicodone) 5 MG immediate release tabletIndication s:Chronic midline low back pain with right-sided sciatica,Polyart hralgia TAKE 1 TABLET BY MOUTH EVERY TWELVE HOURS NEEDED FOR SEVERE PAIN 56 tablet 03/18/20 25 9:24 AM EST 025 Active citalopram (CeleXA) 20 MG tabletIndication s:Moderate episode of recurrent major depressive disorder (CMS/HCC) ([facility]) TAKE 1 TABLET BY MOUTH EVERY MORNING 30 tablet 3 025 Active DULoxetine (Cymbalta) [address] capsuleIndicatio ns:Moderate episode of recurrent major depressive disorder (CMS/HCC) ([facility]) TAKE 1 CAPSULE BY MOUTH EVERY MORNING 30 capsule 3 025 Active gabapentin (Neurontin) 600 MG tabletIndication s:Chronic toe pain, left foot TAKE 1 TABLET BY MOUTH TWICE DAILY IN THE MORNING AND IN THE EVENING 60 tablet 1 04/01/20 25 1:20 PM EST 025 Active Calcium Carb-Cholecalcif terri (Oyster Shell Calcium w/D) 500-5 MG-MCG tabletIndication s:Polyarthralgia TAKE 1 TABLET BY MOUTH EVERY MORNING 90 tablet 1 025 2024 Discontinued citalopram (CeleXA) 20 MG tabletIndication s:Moderate episode of recurrent major depressive disorder (CMS/HCC) ([facility]) TAKE 1 TABLET BY MOUTH EVERY MORNING 30 tablet 3 025 2024 Discontinued DULoxetine (Cymbalta) [address] capsuleIndicatio ns:Moderate episode of recurrent major depressive disorder (CMS/HCC) ([facility]) TAKE 1 CAPSULE BY MOUTH EVERY MORNING 30 capsule 3 025 2024 Discontinued acetaminophen (Tylenol Extra Strength) 500 MG tabletIndication s:Rib pain on right side Take 1 tablet (500 mg) by mouth every 8 (eight) hours if needed for moderate pain for up to 20 days. 30 tablet 1 03/18/20 25 9:24 AM EST 025 2024 gabapentin (Neurontin) 600 MG tabletIndication s:Chronic toe [...] lumbar anterolisthesis Rx: oxycodone 5mg BID Last F[employer] Agreement: 03/18/25 Tier: III (Q4-6 months), Dr. [...] if is persistently high to contact me tenter frame back tender pain 03/18/2022 Pain in finger 03/18/2022 [...] despite taking the medication. - Recommended watching Prom[employer] videos fro stretching and exercises that can [...] organization. Date Type Department Care Team Description 04/07/2025 Refill [facility] [address] [place] [address] Chelsi Kauffman MD Asthma in adult, moderate persistent, uncomplicated 03/27/2025 Patient Outreach [facility] [address] [place] [address] Chelsi Kauffman MD Pre-visit Planning (SDOH screening negative and tobacco screening negative) 03/27/2025 Refill [facility] [address] [place] [address] Chelsi Kauffman MD Chronic toe pain, left foot 03/24/2025 Telephone [facility] [address] [place] [address] Chelsi Kauffman MD Nurse Triage 03/20/2025 Telephone [facility] [address] [place] [address] Chelsi Kauffman MD Referral 03/18/2025 9:45 AM EST Office Visit [facility] [address] [place] [address] Mackenzie Whatley FNP Lumbar spondylosis (Primary Dx); Long-term current use of opiate analgesic 03/16/2025 Refill [facility] [address] [place] [address] Chelsi Kauffman MD Moderate episode of recurrent major depressive disorder (CMS/HCC) ([facility]); Chronic toe pain, left foot 03/14/2025 Orders Only [facility] [address] [place] [address] Chelsi Kauffman MD 03/12/2025 Refill [facility] [address] [place] [address] Chelsi Kauffman MD Chronic midline low back pain with right-sided sciatica; Polyarthralgia 03/09/2025 Refill [facility] [address] [place] [address] Chelsi Kauffman MD Polyarthralgia 02/26/2025 Refill [facility] [address] [place] [address] Mackenzie Whatley FNP Long-term current use of opiate analgesic 02/20/2025 Refill [facility] [address] [place] [address] [place] [address] Chelsi Kauffman MD Mild persistent asthma without complication 02/12/2025 10:00 AM EST Immunization [facility] [address] [place] [address] Encounter for immunization 02/12/2025 Travel 02/12/2025 Refill [facility] [address] [place] [address] Chelsi Kauffman MD Chronic midline low back pain with right-sided sciatica; Polyarthralgia; Mild intermittent asthma without complication 02/06/2025 Refill [facility] [address] [place] [address] Chelsi Kauffman MD Vertigo 02/05/2025 11:00 AM EDT Office Visit [facility] [address] [place] [address] Granados-Cowan, Aurora, DDS Ill-fitting dentures (Primary Dx) 02/05/2025 Refill [facility] [address] [place] [address] Chelsi Kauffman MD Vitamin D deficiency, unspecified; Vertigo 02/03/2025 Refill [facility] [address] [place] [address] Chelsi Kauffman MD Mild persistent asthma without complication 01/29/2025 11:30 AM EDT Office Visit [facility] [address] [place] [address] Rito, Kennedi, OD Presbyopia of both eyes (Primary Dx) 01/29/2025 Travel 01/21/2025 Orders Only GENERIC EXTERNAL DATA DEPARTMENT Provider, Generic External Data 01/18/2025 Refill [facility] [address] [place] [address] Chelsi Kauffman MD Dry eye syndrome of bilateral lacrimal glands 01/16/2025 Refill [facility] [address] [place] [address] Chelsi Kauffman MD Chronic midline low back pain with right-sided sciatica; Polyarthralgia 01/08/2025 Refill [facility] [address] [place] [address] Chelsi Kauffman MD Chronic toe pain, left [...] Description 04/14/2025 3:15 PM EST Office Visit [facility] [address] [place] [address] Chelsi Kauffman MD [address] [place] [address] 05/16/2025 9:30 AM EST Office Visit [facility] [address] [place] [address] Nicole Lay [address] [place] [address] 05/20/2025 9:45 AM EST Office Visit [facility] [address] [facility] [place] [address] Health Maintenance Due Date Last Done Comments [...] procedure / Unknown 03/18/2025 10:37 AM EST Lucila Zuniga RN - 03/18/2025 10:37 AM EST .UTOX cup Lot#[id number] Exp. 03/10/26 Internal Pass Control Mackenzie Whatley OPTO MECHANICAL TECHNICIAN POINT OF CARE TEST ENTER/EDIT ORDERABLES Final Result * BI Mammogram Screening Tomosynthesis Bilateral (03/14/2025 10:50 AM EST) Anatomical Region Laterality Modality Breast Bilateral Mammography 03/14/2025 10:5 0 AM EST Narrative 03/17/2025 12:43 PM EST [facility] [address] [place] [address] Mammography Report Signed Patient: Chelsi Connors MR#: [id number] : 1965 Acct:[id number] Age/Sex: 59 / F ADM Date: 03/14/25 Loc: [facility] Attending Dr: Chelsi Reece MD Ordering Physician: Chelsi Kauffman MD Results: 1Negative Date of Service: 03/14/25 Follow Up: 1 Year From Orig inal Mammogram Procedure(s): MM tomosynthesis screening BI Accession Number(s): [id number] cc: Chelsi Kauffman MD Reason For Exam: [...] by: Taty Mccartney DO 03/17/2025 12:40 PM [facility] Dictated By: Taty Mccartney DO Signed By: <Electronically signed by Taty Mccartney DO in OV> 03/17/25 1240 DD/ 1050 TD/TT: 03/14/25 1100 Plasma Processing Technician: Procedure Note Donotuseinterpreter, Image - 03/17/2025 [facility] [address] [place] [address] Mammography Report Signed Patient: Chelsi Connors DMR#: [id number] : 1965Acct:[id number] Age/Sex: 59 / FADM Date: 03/14/25 Loc: HO.MAMMO Attending Dr: Chelsi Reece MD Ordering Physician: Chelsi Kauffman MDResults: 1Negative Date of Service: 03/14/25Follow Up: 1 Year From Orig inal Mammogram Procedure(s): MM tomosynthesis screening BI Accession Number(s): [id number] cc: Chelsi Kauffman MD Reason For Exam: [...] 03/17/25 1240 DD/ 1050 TD/TT: 03/14/25 1100 Plasma Processing Technician: Chelsi Reece MD IMG BI PROCEDURES Fin al Result * Hematoxylin and Eosin Stain (01/21/2025 12:44 PM EDT) 01/21/2025 12:4 4 PM EDT 01/21/2025 1:40 PM EDT [facility] - 01/23/2025 10:49 AM EDT ----- ------- Name: Chelsi Connors Age/Sex: 59/F : 1965 Unit#: [id number] Attend Dr: Domi Miller MD Re01/21/25 Status: [facility] Location: HO.SSS Disch: ----- ------- SPEC : [id number] RECD: 01/21/25 STATUS: [place] NUM: [id number] HARVINDER: 01/21/[address] [facility] [address]: Domi Miller MD ENTERED: 01/21/25 SP [...] Chelsi Connors Age/Sex: 59/F : 1965 Unit#: [id number] Attend Dr: Domi Miller MD Re01/21/25 Status: [facility] Location: [facility] Disch: ----- ------- SPEC : [id number] RECD: 01/21/25 STATUS: [place] NUM: [id number] HARVINDER: 01/21/[address] [facility] [address]: Domi Miller MD ENTERED: 01/21/25 SP [...] microscopic examination, 1 piece in cassette G. ([facility]) Special studies ordered and performed: Immunostain for H. pylori on A and E; AB/PAS stains on A, B, C, D, E and F IHC S/NG Disclaimer NOTE: Unless otherwise stated, all tissue is formalin-fixed and paraffin-embedded. Some or all of the immunohistochemical tests reported herein may have been developed and their performance characteristics determined by [facility]. They have not been cleared or approved by the U.S. Food and Drug Administration (FDA). However, the FDA CONTINUED ON NEXT PAGE ----- ------- Name: Up VasiliyChelsi morales Age/Sex: 59/F : 1965 Unit#: [id number] Attend Dr: Domi Miller MD Re01/21/25 Status: [facility] Location: [place] Disch: ----- ------- SPEC : [id number] RECD: 01/21/25 STATUS: [place] NUM: [id number] HARVINDER: 01/21/[address] [facility] [address]: Domi Miller MD ENTERED: 01/21/25 SP [...] laboratory testing. Copies To: Chelsi Kauffman MD [address] [id number] Domi Miller MD [facility] [address] [place] [phone] [email or web address] ----- ------- Signed (signature on file) Dc Shaffer MD 01/23/25 1049 ----- ------- END OF REPORT Generic External Data Provider LAB BLOOD ORDERAB LES Final Result Performing Organization Address City/[facility]/ZIP Co de Phone Number [facility] [address] [place] [address] [phone] * Glucose, Whole Blood (01/21/2025 11:08 AM EDT) Glucose, Whole Blood 106 60 - 115 mg/dL [facility] Comment:METER #: [id number] 01/21/2025 11:0 8 AM EDT 01/21/2025 11:15 AM EDT Generic External Data Provider LAB BLOOD ORDERAB LES Final Result Performing Organization Address [facility] Co de Phone Number [facility] [address] [place] [address] [phone] * Hemoglobin A1c (07/10/2024 12:13 PM EDT) Hemoglobin A1c 5.7 <6.0 % [facility] Comment:Hemoglobin A1C Refer ence Range Adults: 4.8 - 6.0 % Non diabetic: < 6.0 % Goal: < 7.0 %Additional Action Suggested: > 8.0 %Note: Hemoglobin A1c results are invalid for patients with abnormal amounts of HbF. Blood transfusions may impact the HbA1c concentration in the patient sample. Estimated Average Glucose 117 mg/dL [facility] Comment:eAG = Estimated ave rage glucose which is %A1C expressed asaverage glucose, using the formula of the V6C-NjlysmjOwjgdhh Glucose study (ADAG), Diabetes Care, Vol.31,#8,Nov. 2007 Blood Venous blood specimen / Unknown 07/10/2024 12:13 PM EDT 07/10/2024 12:13 PM EDT us Chelsi Reece MD LAB BLOOD ORDERABLES Final Result [facility] [address] [place] [address] [phone] * (ABNORMAL) Lipid Panel, Standard (07/10/2024 12:13 PM EDT) Triglycerides 167(H) <150 mg/dL [facility] Comment:Desirable Triglyceri de: less than 150 mg/dLBorderline High Triglyceride 150-199 mg/dLHigh Triglyceride: 200-499 mg/dLVery High Triglyceride: greater than or equal to 5OO mg/dL Cholesterol 163 <200 mg/dL [facility] Comment:Desirable Cholestero l: less than 200 mg/dLBorderline High Cholesterol: 200-239 mg/dLHigh Cholesterol: greater than 239 mg/dL LDL Cholesterol Calculated 90 <100 mg/dL [facility] Comment:Desirable LDL: less than 100 mg/dLNear Optimal/Above Optimal LDL: 110- 129 mg/dLBorderline High LDL: 130-159 mg/dLHigh LDL: 160-189 mg/dLVery High LDL: greater than or equal to 190 mg/dL HDL Cholesterol 40(L) >40 mg/dL [facility] Comment:Desirable HDL: great er than 40 mg/dL Note: This HDL assay may give artificially low results in patients with liver disease. Blood Venous blood specimen / Unknown 07/10/2024 12:13 PM EDT 07/10/2024 12:13 PM EDT us Chelsi Reece MD LAB BLOOD ORDERABLES Final Result [facility] [address] [place] [address] [phone] * Image-Guided Pap with Age-Based Screening??with CT/NG,??Trichomonas (07/04/2023 3:39 PM EDT) Trichomonas (NAAT) NOT DETECTED NOT DETECTED [facility] Comment:The analytical perfo rmance characteristics of thisassay have been determined by [employer]. Themodifications have not been cleared or approved bythe FDA. This assay has been validated pursuant to theIA regulations and is used for clinical purposes.For additional information, please refer [email or web address].S[employer]U/faq/[email or web address](This link is being provided for information/educational purposes only.)THIS TEST WAS PERFORMED AT:[email or web address] [place] [phone] HANEY MD CTNG Ref Lab NOT DETECTED NOT DETECTED [facility] NG Ref Lab NOT DETECTED NOT DETECTED [facility] Pap Vial Vaginal structure / Unknown 07/04/2023 3:39 PM EDT 07/10/2023 8:55 AM EDT Narrative [facility] - 07/11/2023 8:28 PM EDT Collection Date: [id number]: Vagina Chelsi Reece MD LAB CYTOLOGY ORDERABL ES Final Result [facility] [address] [place] [address] [phone] * HPV mRNA E6/E7 w/Reflex to HPV Genotypes 16, 18/45 (07/04/2023 3:39 PM EDT) HPV nRNA E6/E7 Not Detected Not Detected [facility] Comment:Methodology: Transcr iption-Mediated AmplificationThis assay detects E6/E7 viral messenger RNA (mRNA) from 14high-risk HPV types (16,18,31,33,35,39,45,51,52,56,58,59,66,68).Cervical sources are required for HPV testing.If a vaginal source from a patient who has had atotal hysterectomy with removal of cervix wassubmitted, please contact the testing laboratoryfor alternative testing options.For additional information, please refer tohttp://education.SustainU/faq/BAF029x1(This link if provided for information/educational purposes only.)THIS TEST WAS PERFORMED AT:[email or web address] [place] [phone] HANEY MD HPV mRNA E6/E7 [facility] HPV 16 RNA [facility] HPV 18/45 RNA [facility] 07/04/2023 3:39 PM EDT 07/05/2023 2:00 PM EDT Chelsi Reece MD LAB CYTOLOGY ORDERABL ES Final Result Performing Organization Address [facility]/ZIP Co de Phone Number [facility] [address] [place] [phone] * (ABNORMAL) Hepatitis C Ab (12/21/2022 10:55 AM EDT) Pathologist [facility] Hepatitis C Antibody Reactive( A) Nonreactive [facility] Comment:Presumptive evidence of antibodies to HCV. 12/21/2022 10:5 5 AM EDT 12/21/2022 10:55 AM EDT [facility] External Provider LAB BLO OD ORDERABLES Final Result Performing Organization Address [facility] Co de Phone Number [facility] [address] [place] [address] [phone] * HIV Ab/Ag (PA RAFIQ) (12/21/2022 10:55 AM EDT) HIV AB/AG Nonreactive Nonreactive [facility] Comment:HIV-1 p24 Ag and/or HIV-1/HIV-2 Ab not detected.A test result that is nonreactive does not exclude thepossibility of exposure to or infection with HIV-1 and/orHIV-2. Nonreactive results in this assay for individualswith prior exposure to HIV-1 and/or HIV-2 may be due toantigen and antibody levels that are below the limit ofdetection of this assay.The [employer] HIV Ag/Ab Combo assay result andsupplemental assay results should be interpreted inconjunction with the patient's clinical presentation,history and other laboratory results. If the results areinconsistent with clinical evidence, additional testing issuggested to confirm the result. 12/21/2022 10:5 5 AM EDT 12/21/2022 10:55 AM EDT us Generic External Data Provider LAB BLOOD ORDERAB LES Final Result [facility] [address] [place] [address] [phone] * Colonoscopy (08/25/2022) Colonoscopy Normal Normal Narrative Griselda Segal - 08/25/2022 Recommended 1 year follow up due to poor prep us Historical Provider HEALTH MAINTENANCE Final Result from Last 3 Months or Most Recently Relevant to Health Maintenance Insurance [facility] < [address] [id number] [facility] Care Teams Senior Ui Designer Relationship Specialty Start Date End Date Chelsi Kauffman MD [address] [place] [phone] PCP - General Family Medicine 12/20/18
--- OUTSIDE RECORDS SUMMARY | 2025-04-07 09:13 | XMS_ITS | Encounter Summary ---
Author Organization [employer] Address [address] [place] [address] 7 [place] [address] Care Team Providers Care Slabber Name Role Phone Chelsi Kauffman MD Primary Care Provide r Reason for Visit * Reason Comments Med Refill Encounter Details Date Type Department Care Team ([facility] st Contact Info) Description 05/06/2024 Refill [facility] [address] [place] [address] Chelsi Kauffman MD [address] [place] [address] Mild intermittent asthma without complication; Asthma in [...] the past 12 months, has t he [employer], gas, oil or water [employer] threatened to shut off services in your [...] Description 04/14/2025 3:15 PM EST Office Visit [facility] [address] [place] [phone] Chelsi Kauffman MD [address] [place] [phone] 05/16/2025 9:30 AM EST Office Visit [facility] ADULT DENTAL [address] [place] [phone] Nicole Lay [address] [place] [address] 05/20/2025 9:45 AM EST Office Visit [facility] [address] [place] [address] documented as of this encounter Goals Goal [...] documented as of this encounter Care Teams Slabber Relationship Specialty Start Date End Date Chelsi Kauffman MD [address] [place] [phone] PCP - General Family Medicine 12/20/18 documented as of this encounter
--- OUTSIDE RECORDS SUMMARY | 2025-04-07 09:13 | XMS_ITS | Encounter Summary ---
Author Organization [employer] Address [address] [facility] [address]t [place] [address] Care Team Providers Care Housing Management Officer Name Role Phone Chelsi Kauffman MD Primary Care Provide r Encounter Details Date Type Department Care Team (Late st Contact Info) Description 01/17/2023 Abstract [facility] [address] [place] [address] Griselda Segal Social History Tobacco Use Types [...] 3:15 PM EST Office Visit [facility] [address] [place] [address] Chelsi Kauffman MD [address] [place], [place] [phone] 05/16/2025 9:30 AM EST Office Visit [facility] [address] [place], [place] [phone] Alireza, Nicole [address] [place] [address] 05/20/2025 9:45 AM EST Office Visit [facility] [address] [place] [address] documented as of this encounter Procedures Procedure [...] documented as of this encounter Care Teams Housing Management Officer Relationship Specialty Start Date End Date Chelsi Kauffman MD [address] [place] [address] [phone] PCP - General Family Medicine 12/20/18 documented as of this encounter
--- OUTSIDE RECORDS SUMMARY | 2025-04-07 09:13 | XMS_ITS | Encounter Summary ---
Author Organization [employer] Address [address] [place] [address] [place] [address] Care Team Providers Care Broom Stitcher Name Role Phone Chelsi Kauffman MD Primary Care Provide r Reason for Visit * Reason Onset Date Comments Referral 08/12/2024 Encounter Details Date Type Department Care Team ([facility] st Contact Info) Description 08/12/2024 Telephone [facility] [address] [place] [address] Chelsi Kauffman MD [address] [place] [address] Referral Social History Tobacco Use Types Packs/Day [...] referral : DATE: 08/12/2024 TIME: 10:00am Address: [address] [place] [address] Visits: 1 Facility Name: [facility] Physical Therapy Type of Specialist: physical therapy DX:H81.13 Provider : not provided Provider NPI : Facility NPI: [id number] Phone # : [phone] Fax #: [phone] documented in this encounter Plan of Treatment Upcoming Encounters Date Type Department Care Team ([facility] Contact Info) Description 04/14/2025 3:15 PM EST Office Visit [facility] [address] [place] [address] Chelsi Kauffman MD [address] [place] [address] 05/16/2025 9:30 AM EST Office Visit [facility] ADULT D[facility] [address] [place] [address] Nicole Lay [address] [place] [address] 05/20/2025 9:45 AM EST Office Visit [facility] [address] [place] [address] documented as of this encounter Goals Goal [...] documented as of this encounter Care Teams Broom Stitcher Relationship Specialty Start Date End Date Chelsi Kauffman MD [address] [place] [address] PCP - General Family Medicine 12/20/18 documented as of this encounter
--- OUTSIDE RECORDS SUMMARY | 2025-04-07 09:13 | XMS_ITS | Encounter Summary ---
Author Organization [employer] Address [address] [place] [address] [place] [address] Care Team Providers Care Boats Renter Name Role Phone Chelsi Kauffman MD Primary Care Provide r Reason for Visit * Reason Onset Date Comments Reschedule 06/13/2023 Encounter Details Date Type Department Care Team ([facility] st Contact Info) Description 06/13/2023 Telephone [facility] MEDICINE [address] [place] [address] Chelsi Kauffman MD [address] [place] [address] Reschedule Social History Tobacco Use Types Packs/Day [...] 04/07 Derm appointment. Please contact pt at [phone] documented in this encounter Plan of Treatment Upcoming Encounters Date Type Department Care Team (Late st Contact Info) Description 04/14/2025 3:15 PM EST Office Visit [facility] MEDICINE [address] [place] [address] Chelsi Kauffman MD [address] [place] [address] 05/16/2025 9:30 AM EST Office Visit [facility] ADULT DENTAL [address] [place] [address] Alireza Nicole 230 [place] [address] 05/20/2025 9:45 AM EST Office Visit [facility] MEDICINE [address] [place] [address] documented as of this encounter Visit Diagnoses Not on filedocumented in this encounter Additional Health Concerns Assessment Noted Time PHQ-9 Depression Total Score: 0 04/25/19 24 9:30 AM EST documented as of this encounter Care Teams Boats Renter Relationship Specialty Start Date End Date Chelsi Kauffman MD [address] [place] [address] PCP - General Family Medicine 12/20/18 documented as of this encounter
--- OUTSIDE RECORDS SUMMARY | 2025-04-07 09:13 | XMS_ITS | Encounter Summary ---
Author Organization [employer] Address [address] [place] [address] [facility] [place] [address] Care Team Providers Care Consulting Marine Engineer Name Role Phone Chelsi Kauffman MD Primary Care Provide r Reason for Visit * Reason Comments Med Refill Encounter Details Date Type Department Care Team ([facility] st Contact Info) Description 04/04/2023 Refill [facility] MEDICINE 230 [place] [address] Chelsi Kauffman MD 230 [place] [address] Asthma in adult, moderate persistent, uncomplicated Social [...] Description 04/14/2025 3:15 PM EST Office Visit [facility] MEDICINE [address] [place] [address] Chelsi Kauffman MD [address] [place] [address] 05/16/2025 9:30 AM EST Office Visit [facility] ADULT DENTAL 230 [place] [address] Alireza, Nicole 230 [place] [address] 05/20/2025 9:45 AM EST Office Visit [facility] MEDICINE [address] [place] [address] documented as of this encounter Visit Diagnoses Diagnosis Asthma in adult, moderate persistent, uncomplicated documented in this encounter Additional Health Concerns Assessment Noted Time PHQ-9 Depression Total Score: 24 023 2:25 PM EDT documented as of this encounter Care Teams Consulting Marine Engineer Relationship Specialty Start Date End Date Chelsi Kauffman MD [address] [place] [address] PCP - General Family Medicine 12/20/18 documented as of this encounter
--- OUTSIDE RECORDS SUMMARY | 2025-04-07 09:13 | XMS_ITS | Encounter Summary ---
Author Organization [employer] Address [address] [place] [address] Care Team Providers Care Vice President Talent Management Name Role Phone Chelsi Kauffman MD Primary Care Provide r Encounter Details Date Type Department Care Team (Latest Contact Info) Description 09/04/2020 Abstract [facility] CONVERSIONS Dental, Provider, DDS Social History [...] 04/14/2025 3:15 PM EST Office Visit [facility] MEDICINE [address] [place] [address] Chelsi Kauffman MD 230 [place] [address] 05/16/2025 9:30 AM EST Office Visit [facility] ADULT DENTAL 230 [place] [address] Nicole Lay 230 [place] [address] 05/20/2025 9:45 AM EST Office Visit [facility] MEDICINE [address] [place] [address] documented as of this encounter Visit Diagnoses Not on filedocumented in this encounter Care Teams Vice President Talent Management Relationship Specialty Start Date End Date Chelsi Kauffman MD [address] [place] [address] PCP - General Family Medicine 12/20/18 documented as of this encounter
--- OUTSIDE RECORDS SUMMARY | 2025-04-07 09:13 | XMS_ITS | Encounter Summary ---
Author Organization [employer] Address [address] [place] [address] [place] [address] Care Team Providers Care Radiator Mechanic Name Role Phone Chelsi Kauffman MD Primary Care Provide r Reason for Visit * Reason Onset Date Comments Med Refill 05/30/2024 Encounter Details Date Type Department Care Team (Late st Contact Info) Description 05/30/2024 Refill [facility] MEDICINE 230 [place] [address] Chelsi Kauffman MD 230 [place] [address] Social History Tobacco Use Types Packs/Day Years [...] MG/0.5ML solution auto-injector To be sent to: [facility] - [place], [place] - [address] [place] [address] documented in this encounter Plan of Treatment Upcoming Encounters Date Type Department Care Team ([facility] st Contact Info) Description 04/14/2025 3:15 PM EST Office Visit [facility] MEDICINE [address] [place] [address] Chelsi Kauffman MD 230 [place] [address] 05/16/2025 9:30 AM EST Office Visit [facility] ADULT DENTAL [address] [place] [address] [place] [address] Nicole Lay 230 [place] [address] 05/20/2025 9:45 AM EST Office Visit [facility] MEDICINE 230 [place] [address] documented as of this encounter Goals Goal [...] documented as of this encounter Care Teams Radiator Mechanic Relationship Specialty Start Date End Date Chelsi Kauffman MD 230 [place] [address] PCP - General Family Medicine 12/20/18 documented as of this encounter
--- OUTSIDE RECORDS SUMMARY | 2025-04-07 09:13 | XMS_ITS | Encounter Summary ---
Author Organization [employer] Address [address] [place] [address] 7 [place] [address] Care Team Providers Care Rubber Printing Machine Operator Name Role Phone Chelsi Kauffman MD Primary Care Provide r Reason for Visit * Reason Comments Med Refill Encounter Details Date Type Department Care Team ([facility] st Contact Info) Description 04/07/2025 Refill [facility] MEDICINE 230 [place] [address] Chelsi Kauffman MD 230 [place] [address] Asthma in adult, moderate persistent, uncomplicated Social [...] 3:15 PM EST Office Visit [facility] MEDICINE [address] [place] [address] Chelsi Kauffman MD [address] [place] [address] 05/16/2025 9:30 AM EST Office Visit [facility] ADULT DENTAL [address] [place] [address] Nicole Lay [address] [place] [address] 05/20/2025 9:45 AM EST Office Visit [facility] MEDICINE [address] [place] [address] documented as of this encounter Goals Goal [...] documented as of this encounter Care Teams Rubber Printing Machine Operator Relationship Specialty Start Date End Date Chelsi Kauffman MD [address] [place] [address] PCP - General Family Medicine 12/20/18 documented as of this encounter
--- OUTSIDE RECORDS SUMMARY | 2025-04-07 09:13 | XMS_ITS | Encounter Summary ---
Author Organization [employer] Address [address] [place] [address] [facility] [place] [address] Care Team Providers Care Psychological Science Professor Name Role Phone Chelsi Kauffman MD Primary Care Provide r Reason for Visit * Reason Comments Med Refill Encounter Details Date Type Department Care Team ([facility] st Contact Info) Description 12/16/2024 Refill [facility] MEDICINE 230 [place] [address] Chelsi Kauffman MD 230 [place] [address] Preventative health care; Hypertension, unspecified type Social [...] 3:15 PM EST Office Visit [facility] MEDICINE [address] [place] [address] Chelsi Kauffman MD [address] [place] [address] 05/16/2025 9:30 AM EST Office Visit [facility] ADULT DENTAL [address] [place] [address] Nicole Lay [address] [place] [address] 05/20/2025 9:45 AM EST Office Visit [facility] MEDICINE [address] [place] [address] documented as of this encounter Goals Goal [...] documented as of this encounter Care Teams Psychological Science Professor Relationship Specialty Start Date End Date Chelsi Kauffman MD [address] [place] [address] PCP - General Family Medicine 12/20/18 documented as of this encounter
--- OUTSIDE RECORDS SUMMARY | 2025-04-07 09:13 | XMS_ITS | Encounter Summary ---
Author Organization [employer] Address [address] [place] [address] [facility] [place] [address] Care Team Providers Care Hvac Service Technician Name Role Phone Chelsi Kauffman MD Primary Care Provide r Reason for Visit * Reason Comments Med Refill Encounter Details Date Type Department Care Team ([facility] st Contact Info) Description 03/16/2023 Refill [facility] MEDICINE [address] [place] [address] Chelsi Kauffman MD 230 [place] [address] Dry eyes Social History Tobacco Use Types [...] Description 04/14/2025 3:15 PM EST Office Visit [facility] MEDICINE [address] [place] [address] Chelsi Kauffman MD 230 [place] [address] 05/16/2025 9:30 AM EST Office Visit [facility] ADULT DENTAL [address] [place] [address] Alireza, Nicole [address] [place] [address] 05/20/2025 9:45 AM EST Office Visit [facility] MEDICINE [address] [place] [address] documented as of this encounter Visit Diagnoses Diagnosis Dry eyes Unspecified tear film insufficiency documented in this encounter Additional Health Concerns Assessment Noted Time PHQ-9 Depression Total Score: 24 023 2:25 PM EDT documented as of this encounter Care Teams Hvac Service Technician Relationship Specialty Start Date End Date Chelsi Kauffman MD [address] [place] [address] [phone] PCP - General Family Medicine 12/20/18 documented as of this encounter
--- OUTSIDE RECORDS SUMMARY | 2025-04-07 09:13 | XMS_ITS | Encounter Summary ---
Author Organization [employer] Address [address] [place] [address] Care Team Providers Care Hat Forming Machine Operator Name Role Phone Chelsi Kauffman MD Primary Care Provide r Encounter Details Date Type Department Care Team (Latest Contact Info) Description 11/23/2021 Abstract [facility] CONVERSIONS Dental, Provider, DDS Social History Tobacco [...] 3:15 PM EST Office Visit [facility] MEDICINE [address] [place] [address] Chelsi Kauffman MD 230 [place] [address] 05/16/2025 9:30 AM EST Office Visit [facility] ADULT DENTAL [address] [place] [address] Nicole Lay 230 [place] [address] 05/20/2025 9:45 AM EST Office Visit [facility] MEDICINE [address] [place] [address] documented as of this encounter Visit Diagnoses Not on filedocumented in this encounter Care Teams Hat Forming Machine Operator Relationship Specialty Start Date End Date Chelsi Kauffman MD 230 [place] [address] PCP - General Family Medicine 12/20/18 documented as of this encounter
--- OUTSIDE RECORDS SUMMARY | 2025-04-07 09:13 | XMS_ITS | Encounter Summary ---
Author Organization [employer] Address [address] [facility] 7 [place] [address] Care Team Providers Care Credit Support Counselor Name Role Phone Chelsi Kauffman MD Primary Care Provide r Reason for Visit * Reason Comments Med Refill Encounter Details Date Type Department Care Team ([facility] st Contact Info) Description 11/10/2023 Refill [facility] MEDICINE [address] [place] [address] Chelsi Kauffman MD 230 [place] [address] Chronic toe pain, left foot Social History [...] Description 04/14/2025 3:15 PM EST Office Visit [facility] MEDICINE [address] [place] [address] Chelsi Kauffman MD 230 [place] [address] 05/16/2025 9:30 AM EST Office Visit [facility] ADULT DENTAL [address] [place] [address] Nicole Lay [address] [place] [address] 05/20/2025 9:45 AM EST Office Visit [address] [address] documented as of this encounter Goals Goal [...] documented as of this encounter Care Teams Credit Support Counselor Relationship Specialty Start Date End Date Chelsi Kauffman MD 230 [place] [address] PCP - General Family Medicine 12/20/18 documented as of this encounter
--- OUTSIDE RECORDS SUMMARY | 2025-04-07 09:13 | XMS_ITS | Encounter Summary ---
Author Organization [employer] Address [address] [place] [address] [place] [address] Care Team Providers Care Plate Setter Name Role Phone Chelsi Kauffman MD Primary Care Provide r Reason for Referral * Consultation (Routine) - Closed Specialty Diagnoses / Procedures Referred By Contac t Referred To Contact Physical Therapy Diagnoses Benign paroxysmal vertigo, unspecified laterality Christine Laurent MD [address] [place] [address] Phone: tel: fax: [facility] [address] [place] [address] Phone: tel: fax: Referral ID Status Reason Start Date Expiration Date V isits Requested Visits Authorized [id number] Closed Specialty Services Required 04/26/2024 04/26/2025 1 1 Encounter Details Date Type Department Care Team (Late st Contact Info) Description 04/26/2024 Orders Only [facility] MEDICINE [address] [place] [address] [phone] Christine Laurent MD 230 [place], [place] [phone] Benign paroxysmal vertigo, unspecified laterality (Primary Dx) [...] 3:15 PM EST Office Visit [facility] MEDICINE 230 [place] [address] Chelsi Kauffman MD [address] [place] [address] 05/16/2025 9:30 AM EST Office Visit [facility] ADULT DENTAL 230 [place] [address] Nicole Lay 230 [place] [address] 05/20/2025 9:45 AM EST Office Visit [facility] MEDICINE 230 [place] [address] Scheduled Referrals Name Type Priority Associated Diagnoses [...] documented as of this encounter Care Teams Plate Setter Relationship Specialty Start Date End Date Chelsi Kauffman MD [address] [place] [address] PCP - General Family Medicine 12/20/18 documented as of this encounter
--- OUTSIDE RECORDS SUMMARY | 2025-04-07 09:13 | XMS_ITS | Encounter Summary ---
Author Organization [employer] Address [address] [facility] 7 [place] [address] Care Team Providers Care Associate Professor Of Geology Name Role Phone Chelsi Kauffman MD Primary Care Provide r Reason for Visit * Reason Comments Med Refill Encounter Details Date Type Department Care Team ([facility] st Contact Info) Description 09/14/2023 Refill [facility] MEDICINE [address] [place] [address] Chelsi Kauffman MD 230 [place] [address] Polyarthralgia Social History Tobacco Use Types Packs/Day [...] 04/14/2025 3:15 PM EST Office Visit [facility] MEDICINE [address] [place] [address] Chelsi Kauffman MD [address] [place] [address] 05/16/2025 9:30 AM EST Office Visit [facility] ADULT DENTAL [address] [place] [address] Nicole Lay [address] [place] [address] 05/20/2025 9:45 AM EST Office Visit [address] [address] documented as of this encounter Goals Goal [...] this encounter Care Teams Associate Professor Of Geology Relationship Specialty Start Date End Date Chelsi Kauffman MD 230 [place] [address] PCP - General Family Medicine 12/20/18 documented as of this encounter
--- OUTSIDE RECORDS SUMMARY | 2025-04-07 09:13 | XMS_ITS | Encounter Summary ---
Author Organization [employer] Address [address] [place] [address] [facility] [place] [address] Care Team Providers Care Supply Cataloguer Name Role Phone Chelsi Kauffman MD Primary Care Provide r Reason for Visit * Reason Comments Med Refill Encounter Details Date Type Department Care Team ([facility] st Contact Info) Description 03/08/2023 Refill [facility] MEDICINE 230 [place] [address] Chelsi Kauffman MD 230 [place] [address] Migraine without aura, not refractory Social History [...] Description 04/14/2025 3:15 PM EST Office Visit [facility] MEDICINE 230 [place] [address] Chelsi Kauffman MD 230 [place] [address] 05/16/2025 9:30 AM EST Office Visit [facility] ADULT DENTAL 230 [place] [address] Alireza, Nicole 230 [place] [address] 05/20/2025 9:45 AM EST Office Visit [facility] MEDICINE [address] [place] [address] documented as of this encounter Visit Diagnoses Diagnosis Migraine without aura, not refractory documented in this encounter Additional Health Concerns Assessment Noted Time PHQ-9 Depression Total Score: 24 023 2:25 PM EDT documented as of this encounter Care Teams Supply Cataloguer Relationship Specialty Start Date End Date Chelsi Kauffman MD [address] [place] [address] PCP - General Family Medicine 12/20/18 documented as of this encounter
--- OUTSIDE RECORDS SUMMARY | 2025-04-07 09:13 | XMS_ITS | Encounter Summary ---
Author Organization [employer] Address [address] [facility] 7 [place] [address] Care Team Providers Care Icing Machine Operator Name Role Phone Chelsi Kauffman MD Primary Care Provide r Encounter Details Date Type Department Care Team ([facility] st Contact Info) Description 03/25/[address] [facility] MEDICINE 230 [place] [address] Chelsi Kauffman MD [address] [place], [place] [phone] Social History Tobacco Use Types Packs/Day Years [...] 04/14/2025 3:15 PM EST Office Visit [facility] MEDICINE [address] [place] [address] Chelsi Kauffman MD [address] [place] [address] 05/16/2025 9:30 AM EST Office Visit [facility] ADULT DENTAL [address] [place] [address] Nicole Lay [address] [place] [address] 05/20/2025 9:45 AM EST Office Visit [facility] MEDICINE [address] [place] [address] documented as of this encounter Goals Goal [...] documented as of this encounter Care Teams Icing Machine Operator Relationship Specialty Start Date End Date Chelsi Kauffman MD [address] [place] [address] PCP - General Family Medicine 12/20/18 documented as of this encounter
--- OUTSIDE RECORDS SUMMARY | 2025-04-07 09:13 | XMS_ITS | Encounter Summary ---
Author Organization [employer] Address [address] [facility] 7 [place] [address] Care Team Providers Care Real Estate Office Supervisor Name Role Phone Chelsi Kauffman MD Primary Care Provide r Encounter Details Date Type Department Care Team (Late st Contact Info) Description 05/06/2024 Orders Only [facility] MEDICINE 230 [place], [place] [phone] Mariana Meyer MD 230 [place] [address] Social History Tobacco Use Types Packs/Day Years [...] Description 04/14/2025 3:15 PM EST Office Visit [facility] MEDICINE [address] [place] [address] Chelsi Kauffman MD [address] [place] [address] 05/16/2025 9:30 AM EST Office Visit [facility] ADULT DENTAL [address] [place] [address] Nicole Lay 230 [place] [address] 05/20/2025 9:45 AM EST Office Visit [facility] MEDICINE [address] [place] [address] documented as of this encounter Goals Goal [...] documented as of this encounter Care Teams Real Estate Office Supervisor Relationship Specialty Start Date End Date Chelsi Kauffman MD 230 [place] [address] PCP - General Family Medicine 12/20/18 documented as of this encounter
--- OUTSIDE RECORDS SUMMARY | 2025-04-07 09:13 | XMS_ITS | Encounter Summary ---
Author Organization [employer] Address [address] [place] [address] 7 [place] [address] Care Team Providers Care Last Sorter Name Role Phone Chelsi Kauffman MD Primary Care Provide r Reason for Visit * Reason Comments Med Refill Encounter Details Date Type Department Care Team ([facility] st Contact Info) Description 05/09/2023 Refill [facility] MEDICINE 230 [place] [address] Chelsi Kauffman MD 230 [place] [address] Migraine without aura, not refractory Social History [...] Description 04/14/2025 3:15 PM EST Office Visit [facility] MEDICINE [address] [place] [address] Chelsi Kauffman MD [address] [place] [address] 05/16/2025 9:30 AM EST Office Visit [facility] ADULT DENTAL 230 [place] [address] Derick Layaris [address] [place] [address] 05/20/2025 9:45 AM EST Office Visit [facility] MEDICINE [address] [place] [address] documented as of this encounter Visit Diagnoses Diagnosis Migraine without aura, not refractory documented in this encounter Additional Health Concerns Assessment Noted Time PHQ-9 Depression Total Score: 0 04/25/19 24 9:30 AM EST documented as of this encounter Care Teams Last Sorter Relationship Specialty Start Date End Date Chelsi Kauffman MD [address] [place] [address] PCP - General Family Medicine 12/20/18 documented as of this encounter
--- OUTSIDE RECORDS SUMMARY | 2025-04-07 09:13 | XMS_ITS | Encounter Summary ---
Author Organization [employer] Address [address] [facility] 7 [place] [address] Care Team Providers Care Animal Laboratory Helper Name Role Phone Chelsi Kauffman MD Primary Care Provide r Reason for Visit * Reason Comments Med Refill Encounter Details Date Type Department Care Team ([facility] st Contact Info) Description 03/31/2023 Refill [facility]S [address] [place] [address] Kiana Santos, DO 230 [place] [address] Vitamin D deficiency, unspecified Social History Tobacco [...] [facility] MEDICINE [address] [place] [address] Chelsi Kauffman MD 230 [place] [address] 05/16/2025 9:30 AM EST Office Visit [facility] ADULT DENTAL [address] [place] [address] Alireza, Nicole [address] [place] [address] 05/20/2025 9:45 AM EST Office Visit [facility] MEDICINE [address] [place] [address] documented as of this encounter Visit Diagnoses Diagnosis Vitamin D deficiency, unspecified documented in this encounter Additional Health Concerns Assessment Noted Time PHQ-9 Depression Total Score: 24 023 2:25 PM EDT documented as of this encounter Care Teams Animal Laboratory Helper Relationship Specialty Start Date End Date Chelsi Kauffman MD [address] [place] [address] PCP - General Family Medicine 12/20/18 documented as of this encounter
--- OUTSIDE RECORDS SUMMARY | 2025-04-07 09:13 | XMS_ITS | Encounter Summary ---
Author Organization [employer] Address [address] [place] [address] [facility] [place] [address] Care Team Providers Care Political Director Name Role Phone Chelsi Kauffman MD Primary Care Provide r Reason for Visit * Reason Comments Med Refill Encounter Details Date Type Department Care Team ([facility] st Contact Info) Description 03/31/2023 Refill [facility] [address] [place] [address] Chelsi Kauffman MD 230 [place] [address] Dermatitis, seborrheic; Polyarthralgia Social History Tobacco Use [...] Description 04/14/2025 3:15 PM EST Office Visit [facility] [address] [place] [address] Chelsi Kauffman MD [address] [place] [address] 05/16/2025 9:30 AM EST Office Visit [facility] ADULT DENTAL [address] [place] [address] Alireza, Nicole [address] [place] [address] 05/20/2025 9:45 AM EST Office Visit [facility] [address] [place] [address] documented as of this encounter Visit Diagnoses Diagnosis Dermatitis, seborrheic Unspecified seborrheic dermatitis Polyarthralgia Pain in joint, multiple sites documented in this encounter Additional Health Concerns Assessment Noted Time PHQ-9 Depression Total Score: 24 023 2:25 PM EDT documented as of this encounter Care Teams Political Director Relationship Specialty Start Date End Date Chelsi Kauffman MD [address] [place] [address] PCP - General Family Medicine 12/20/18 documented as of this encounter
== END 2025-04-07 10:14 | disposition home or self-care (01) ==
LOC: HO.HOS 08:59
PROVIDERS: PCP Internal Medicine; Visit Provider Physician Assistant
DX: M75.42 Impingement syndrome of left shoulder (principal); M75.41 Impingement syndrome of right shoulder; M19.011 Primary osteoarthritis, right shoulder; M19.012 Primary osteoarthritis, left shoulder
CPT/HCPCS: 20610; 99213

== ENCOUNTER → 2025-04-07 09:00 | Outpatient (BNV) | payer OTHER, SELFPAY | PROVIDERS: Visit Provider Radiology Diagnostic Radiology | DX: M19.011 Primary osteoarthritis, right shoulder (principal); M19.012 Primary osteoarthritis, left shoulder | CPT/HCPCS: 73030 ==